=== PATIENT | male | born 1940 | race Caucasian/White ===

== ENCOUNTER → 2018-05-20 12:58 | Outpatient (CLI) | payer MEDICARE, SELFPAY ==
--- NOTE | 2018-05-20 13:32 | RAD_ITS ---
STUDY: X-RAY - ABDOMEN/PELVIS REASON FOR EXAM: Male, 77 years old. History of kidney stones. TECHNIQUE: KUB COMPARISON: None. FINDINGS: Osteopenia. Mild low lumbar scoliosis and prominent lumbar degenerative disc disease at L4-L5. Mild SI joint degeneration symmetric. Moderately severe left hip joint degeneration with joint margin osteophytic lipping, articular surface sclerosis and small subcortical cysts. Right total hip arthroplasty appears to be normally seated and articulated. No visible calculi of the left kidney silhouette. There is a punctate calcification overlying the right renal inferior pole silhouette, possibly a very small calyceal calculus. There is no apparent ureteral or urinary bladder calculus. There is a small pelvic phlebolith on the right. Bowel pattern unremarkable. Grossly normal size and position of the solid organs of the abdomen. RAD/Abdomen Single View IMPRESSION: Punctate calcification projecting over the lower pole the right kidney may represent a very tiny nonobstructing calyceal calculus. Electronically Signed: Eric Dumont MD at 18:16 EDT Tel , Service support ,
[2018-05-20 16:58] LABS: Bacteria 0 SEEN /hpf (None Seen); Mucous, Urine 0 SEEN /hpf (<or=2+); Squamous Epithelial Cells - UA 0 SEEN /hpf (0-5); White Blood Cells 0 SEEN /hpf (0-5)
[2018-05-20 17:07] LABS: Color, Urine Yellow (Yellow); Glucose, Dipstick 50 mg/dl (Normal); Ketone-Dipstick Negative (Negative); Leukocyte Esterase-Dipstick Negative /ul (Negative); Nitrite-Dipstick Negative (Negative); Occult Blood-Urine 25 /ul (Negative); Protein-Dipstick Negative (Negative); Specific Gravity, Urine 1.025 (1.002-1.030); Urine Bilirubin Dipstick Negative (Negative); Urine Clarity Clear (Clear); Urine Urobilinogen Normal (Normal)
[2018-05-20 17:21] LABS: Red Blood Cells-Urine 0-5 SEEN /hpf (0-5)
== END ==
PROVIDERS: Family Provider Family Medicine; PCP Family Medicine; Referring Provider Nurse Practitioner Adult Health; Visit Provider Nurse Practitioner Adult Health
DX: N20.0 Calculus of kidney (principal)
CPT/HCPCS: 74018; 81001

== ENCOUNTER → 2021-12-13 | Outpatient (CLI) | payer MEDICARE, SELFPAY ==
[2021-12-13 11:33] LABS: AST(SGOT) 14 U/L (15-37); Alanine Aminotransfer ALT/SGPT 15 U/L (16-61); Albumin, Serum 3.2 g/dL (3.2-5.0); Alkaline Phosphatase 76 U/L (45-117); Bilirubin, Direct 0.18 mg/dL (0.00-0.30); Cholesterol 209 mg/dL (200); Globulin 4.2 g/dL (2.2-4.2); High Density Lipoprotein 36 mg/dL; Protein, Total 7.4 g/dL (6.4-8.2); Triglycerides 142 mg/dL; Very Low Density Lipoprotein 28 mg/dL (5-40)
== END | disposition home or self-care (01) ==
LOC: LAB 10:19
PROVIDERS: PCP Family Medicine; Referring Provider Internal Medicine Cardiovascular Disease; Visit Provider Internal Medicine Cardiovascular Disease
DX: E78.00 Pure hypercholesterolemia, unspecified (principal); I50.40 Unspecified combined systolic (congestive) and diastolic (congestive) heart failure; I25.10 Atherosclerotic heart disease of native coronary artery without angina pectoris; I25.5 Ischemic cardiomyopathy; Z95.810 Presence of automatic (implantable) cardiac defibrillator; Z95.5 Presence of coronary angioplasty implant and graft; Z95.1 Presence of aortocoronary bypass graft
CPT/HCPCS: 36415; 80061; 80076

== ENCOUNTER 2022-08-07 10:46 | Inpatient (IN) | payer MEDICARE, SELFPAY ==
[2022-08-07 10:47] VITALS: BP 106/84; PULSE 76; RESP 16; TEMP 36.4; O2SAT 95; BMI 22.6
--- NOTE | 2022-08-07 10:47 | EX.ED.DYSGE1 ---
HPI History of Present Illness Chief Complaint: GI Bleed [facility] Medical History Atherosclerosis of coronary artery of [place] heart without angina pectoris CLL (chronic lymphocytic leukemia) Combined systolic and diastolic congestive heart failure, NYHA class 2 Essential hypertension GERD (gastroesophageal reflux disease) History of [place] (myocardial infarction) Hyperlipidemia Ischemic cardiomyopathy Paroxysmal atrial fibrillation Peripheral vascular occlusive disease Type 2 diabetes mellitus without complication Home Medications apixaban 5 mg tablet (Eliquis) 5 mg PO BID 08/29/21 [History Last Taken Unknown] coenzyme Q10 400 mg capsule (Co Q-10) 400 mg PO DAILY 08/29/21 [History Last Taken Unknown] cyanocobalamin (vitamin B-12) 1,000 mcg tablet 1,000 mcg PO DAILY 08/29/21 [History Last Taken Unknown] ibrutinib 140 mg capsule (Imbruvica) 140 mg PO DAILY 08/29/21 [History Last Taken Unknown] pantoprazole 40 mg tablet,delayed release 40 mg PO DAILY 08/29/21 [History Last Taken Unknown] sitagliptin phos 50 mg-metformin ER 1,000 mg tablet,extend rel 24h mp (Janumet XR) 0.5 tab PO BID 08/29/21 [History Last Taken Unknown] vitamin B complex 1 tab PO DAILY 08/29/21 [History Last Taken Unknown] clopidogrel 75 mg tablet 75 mg PO DAILY #90 tabs 12/13/21 [Rx Last Taken Unknown] sacubitril 24 mg-valsartan 26 mg tablet (Entresto) 1 tab PO BID #120 tabs 12/13/21 [Rx Last Taken Unknown] sotalol 80 mg tablet 120 mg PO BID #270 tabs 02/20/22 [Rx Last Taken Unknown] Allergy/AdvReac Type Severity Reaction Status Date / Time iodine Allergy Severe Anaphylaxis Verified 08/07/22 10:47 oxycodone Allergy Intermediate dizziness Verified 08/07/22 10:47 Food Allergies: Uncoded Allergy Mild HEADACHE Verified 08/07/22 10:47 codeine AdvReac Intermediate Low BP Verified 08/07/22 10:47 promethazine AdvReac Intermediate Low BP Verified 08/07/22 10:47 metformin [From Avandamet] AdvReac Unknown Patient Verified 08/07/22 10:47 refuses rosiglitazone AdvReac Unknown Patient Verified 08/07/22 10:47 [From Avandamet] refuses Family History Father Heart disease Mother Cancer Sister Diabetes Surgical History History of bilateral cataract extraction History of coronary artery bypass surgery (1997) History of coronary artery stent placement Presence of implantable cardioverter-defibrillator (ICD) (10/04/17) Social History Smoking Status: Never smoker alcohol intake: never substance use type: does not use EXAM Physical Exam Const Vital Signs: 08/07/22 10:47 08/07/22 12:46 08/07/22 14:00 Temperature 97.5 F L Temperature Source Oral Pulse Rate 76 63 63 Respiratory Rate 16 16 18 Blood Pressure 106/84 H 110/78 105/64 Blood Pressure Mean 91 88 77 Pulse Ox 95 100 99 Oxygen Delivery Method Room Air Room Air Room Air MDM MDM MDM Narrative Medical decision making narrative: HISTORY OF PRESENT ILLNESS: 81-year-old male here accompanied by his with concern for 24 hours of bright red blood per rectum. Patient states he feels a bit short of breath with exertion which is new for him however denies any dizziness, lightheadedness chest pain or focal weakness. He states his last dose of Eliquis was last night approximately 6 PM. States he had a recent colonoscopy on 07/26/2022. Patient and deny pallor REVIEW OF SYSTEMS: Pertinent positives: GI bleeding, shortness of breath Pertinent negatives: Fatigue, lightheadedness or dizziness PHYSICAL EXAM: Nursing triage notes reviewed, Vital signs reviewed Constitutional: please see mdm HENT: MMM, mucosal pallor, conjunctival pallor Eyes: Pupils equal round and reactive to light, Extraocular muscles intact Neck: No stridor, no JVD, full neck ROM Lungs: Clear to auscultation, No wheezing or rales. No increased work of breathing, no conversational dyspnea, no accessory muscle use, no nasal flaring. No respiratory distress noted Heart: Regular rate and rhythm, No murmurs, No rubs and No gallops, 2+ distal pulses (radial, femoral, posterior tibial) in all extremities Abdomen: Soft, there is no tenderness, rigidity, rebound or guarding, no obvious peritoneal signs, no palpable pulsatile abdominal masses, no auscultated abdominal bruit : No CVAT Rectal: Obvious bleeding and rectal vault,, no obvious external hemorrhoids, fissures occult sample sent Extremities: No edema Neuro: No focal neurological deficits, cranial nerves II through XII intact, 5/5 strength in all extremities. Intact sensation to light touch in all extremities, 2+ reflexes bilateral patella tendons. Normal gait. No ataxia. Skin: Skin pallor noted MEDICAL DECISION MAKING: Chief Complaint: GI bleed on Eliquis External records reviewed: Ejection fraction is 30 to 35%. Noted colonoscopy by Dr. Mccann on 07/26/2022: Impression: - One small polyp in the descending colon, removed with a hot snare. Resected and retrieved. Clip was placed. 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 - Non-bleeding internal hemorrhoids. - Diverticulosis in the sigmoid colon. - The examination was otherwise normal. Recommendation: - Patient has a contact number available for emergencies. The signs and symptoms of potential delayed complications were discussed with the patient. Return to normal activities tomorrow. Written discharge instructions were provided to the patient. - Resume previous diet. - Continue present medications. - Await pathology results. - Repeat colonoscopy date to be determined after pending pathology results are reviewed for surveillance. - Return to physician retail assistant in 1 week. - Resume Eliquis (apixaban) tomorrow at prior dose. Procedure Code(s): --- Professional --- 08890, Colonoscopy, flexible; with removal of tumor(s), polyp(s), or other lesion(s) by snare technique Diagnosis Code(s): --- Professional --- D12.4, Benign neoplasm of descending colon K64.8, Other hemorrhoids D50.9, Iron deficiency anemia, unspecified K57.30, Diverticulosis of large intestine without perforation or abscess without bleeding Factors affecting care: On Eliquis secondary to atrial fibrillation, CAD status post CABG in 1997 with JACOBSON to LAD, ischemic cardiomyopathy, status post ICD, CLL Social determinants of health: None History obtained from others: The patient's Consults: General surgery, Gastroenterology, Oncology, Internal Medicine ALL IMAGES HAVE BEEN PERSONALLY REVIEWED AND INTERPRETED BY MYSELF. MDM Narrative: The patient had soft blood pressures otherwise hemodynamically stable and nontoxic-appearing pale on exam I considered the following differential diagnosis: significant anemia, myocardial schema, GI bleed on Eliquis Rectal exam with obvious bright red blood per rectum. No obvious hemorrhoids or fissures. Patient's blood counts had downtrended by 2.9 g/dL. Given his advanced age, history of CAD status post CABG and ischemic cardiomyopathy this was very concerning in the setting of Eliquis. He did not require reversal as he had no evidence of life-threatening bleeding he was hemodynamically stable and no evidence of active bleeding here in the emergency department. The patient will require inpatient admission for observation, repeat CBC and GI urgent consultation. His recent colonoscopy was performed by Dr. Mccann. I reached out to Dr. Mccann's colleague Dr. Pang who is on-call. She stated Dr. Mccann does not see patients at [facility]. I had a discussion with the patient and his who stated they do not want to be transferred at this time and would prefer to stay here at [facility] even if it meant seeing a different cigarette paper tester. I reached out to Dr. Du (gastroenterology) he stated . I also reached out to Dr. Lloyd (oncologist) at patient request. Dr. Lloyd recommended holding ibrutinib as it can perpetuate bleeding. I also spoke to the hospitalist Dr. Muse who agreed to admit the patient to the PCU. Total critical care time today provided was at least 0 minutes. This excludes separately billable procedures. There was a high probability of clinically significant/life threatening deterioration in the patient's condition which required my urgent intervention. Shared decision making: I will have a discussion with the patient and or visitors regarding risk/benefits of further testing or admission. They will be made aware of of the risk/benefits inherent in this decision they will be given the opportunity to voice understanding. Lab Data Attestation: I reviewed the patient's lab results. Lab results narrative: EKG with atrial paced rhythm, normal axis, prolonged QT, no ischemic changes CBC with no leukocytosis, moderate to severe anemia with a hemoglobin of 9.0 (baseline hemoglobin 11.9), noted thrombocytopenia INR without evidence of severe coagulopathy BMP without evidence of significant electrolyte abnormalities, no anion gap, no acute kidney injury. Blood type A- Labs: Laboratory Results - last 24 hr 08/07/22 08/07/22 08/07/22 10:55 10:55 10:55 WBC RBC Hgb Hct MCV MCH MCHC RDW Std Deviation RDW Coeff of [place] Plt Count MPV Immature Gran % (Auto) Neut % (Auto) Lymph % (Auto) [place] % (Auto) Eos % (Auto) Baso % (Auto) Absolute Neuts (auto) Absolute Lymphs (auto) Nucleated RBC % PT 17.0 H INR 1.4 APTT 30.0 Sodium 142 Potassium 4.2 Chloride 109 H Carbon Dioxide 24.0 Anion Gap 9 BUN 23 H Creatinine 1.29 Estim Creat Clear Calc 46.40 Est GFR (MDRD) Af Amer 68 Est GFR (MDRD) Non-Af 56 L BUN/Creatinine Ratio 17.8 Glucose 179 H Calcium 7.7 L Total Bilirubin 0.70 AST 11 L ALT 9 L Alkaline Phosphatase 58 Troponin I High Sens 7 Total Protein 5.8 L Albumin 2.6 L Globulin 3.2 Albumin/Globulin Ratio 0.8 L Lipase 18 Blood Type A NEGATIVE Antibody Screen NEGATIVE 08/07/22 10:55 WBC 10.3 RBC 3.18 L Hgb 9.0 L Hct 27.4 L MCV 86.2 MCH 28.3 MCHC 32.8 RDW Std Deviation 42.3 RDW Coeff of [place] 13.4 Plt Count 118 L MPV 12.7 H Immature Gran % (Auto) 0.200 Neut % (Auto) 70.4 H Lymph % (Auto) 23.3 [place] % (Auto) 5.7 Eos % (Auto) 0.3 Baso % (Auto) 0.1 Absolute Neuts (auto) 7.2 Absolute Lymphs (auto) 2.39 Nucleated RBC % 0 PT INR APTT Sodium Potassium Chloride Carbon Dioxide Anion Gap BUN Creatinine Estim Creat Clear Calc Est GFR (MDRD) Af Amer Est GFR (MDRD) Non-Af BUN/Creatinine Ratio Glucose Calcium Total Bilirubin AST ALT Alkaline Phosphatase Troponin I High Sens Total Protein Albumin Globulin Albumin/Globulin Ratio Lipase Blood Type Antibody Screen Discharge Plan Triage Chief Complaint: GI Bleed ED Provider: Arma Stoll Dx/Rx/DC Orders Prescriptions: No Action pantoprazole 40 mg tablet,delayed release (DR/EC) 40 mg PO DAILY Imbruvica 140 mg capsule 140 mg PO DAILY Eliquis 5 mg tablet 5 mg PO BID cyanocobalamin (vitamin B-12) 1,000 mcg tablet 1,000 mcg PO DAILY vitamin B complex Tablet 1 tab PO DAILY Janumet XR 50-1,000 mg tablet, ER multiphase 24 hr 0.5 tab PO BID coenzyme Q10 [Co Q-10] 400 mg capsule 400 mg PO DAILY clopidogrel 75 mg tablet 75 mg PO DAILY Qty: 90 3RF Entresto 24-26 mg tablet 1 tab PO BID Qty: 120 3RF sotalol 80 mg tablet 120 mg PO BID Qty: 270 3RF Primary Care Provider: Zachary Christian Referrals: Zachary Christian MD [Primary Care Provider] -
[2022-08-07 11:05] LABS: Absolute Lymphocyte Count 2.39 X10^3/uL (0.83-4.51); Absolute Neutrophil Count 7.2 X10^3/uL (2.0-7.7); Basophil# 0.01 X10^3/uL; Basophil% 0.1 % (0-1); Eosinophil# 0.03 X10^3/uL; Eosinophils% 0.3 % (0-5); Hematocrit 27.4 % (40-54); Lymphocyte # 2.39 X10^3/ul (0.83-4.51); Lymphocyte % 23.3 % (19-41); Mean Corp Hgb Conc 32.8 g/dL (32-36); Mean Corpuscular Hgb 28.3 pg (27.0-32.0); Mean Corpuscular Volume 86.2 fL (80-94); Mean Platelet Vol. 12.7 fl (6.2-12.0); Monocyte# 0.58 X10^3/uL; Monocyte% 5.7 % (0-10); NRBC Flagged by Analyzer 0 % (0-5); Neutrophil # 7.22 X10^3/uL (2.7-7.7); Neutrophil % 70.4 % (47-70); Platelet Count 118 K/mm3 (150-450); RBC Distribution Width CV 13.4 % (11.6-14.6); RBC Distribution Width SD 42.3 fl (35.1-43.9); Red Blood Count 3.18 M/mm3 (4.6-6.2); White Blood Count 10.3 K/mm3 (4.4-11.0)
[2022-08-07 11:14] LABS: International Normalized Ratio 1.4
[2022-08-07 11:26] LABS: ALB/GLOB Ratio 0.8 RATIO (0.9-2.4); AST(SGOT) 11 U/L (15-37); Alanine Aminotransfer ALT/SGPT 9 U/L (16-61); Albumin, Serum 2.6 g/dL (3.2-5.0); Alkaline Phosphatase 58 U/L (45-117); Anion Gap 9 (5-15); BUN 23 mg/dL (7-18); BUN/Creat Ratio 17.8 RATIO (10-20); Calcium,Total 7.7 mg/dL (8.5-10.1); Chloride 109 mmol/L (98-107); Creatinine, Serum 1.29 mg/dL (0.70-1.30); EST Glomerular Filtration Rate 56 mL/min (>60); Est Glom Filt Rate - Afr Amer 68 mL/min (>60); Globulin 3.2 g/dL (2.2-4.2); Glucose 179 mg/dL (74-106); Lipase 18 U/L (13-75); Potassium 4.2 mmol/L (3.5-5.1); Protein, Total 5.8 g/dL (6.4-8.2); Sodium Level 142 mmol/L (136-145); Troponin-I HS 7 pg/mL (3.0-78.0)
[2022-08-07 12:46] VITALS: BP 110/78; PULSE 63; RESP 16; O2SAT 100
--- NOTE | 2022-08-07 13:54 | HP.PCM.HOS_ITS ---
[facility] - General General Date of Service: 08/07/22 Chief Complaint: BRBPR HPI Narrative CHARLY CONTRERAS, is a 81 M who presents lower GI bleed since Sunday. Has been occurring roughly every few hours since then. Back on the , patient underwent polypectomy on colonoscopy by Dr. Mccann. Had no issues after that procedure. Patient's last bloody bowel movement was prior to his presentation here. Patient was experiencing some shortness of breath which led to him to present here. Patient had hemoglobin of 9. No current active bleeding. Patient has never had a GI bleed before. Patient was sent to Dr. Mccann for evaluation for anemia which no clear etiology is identified at that time. [facility] Medical History Atherosclerosis of coronary artery of [place] heart without angina pectoris CLL (chronic lymphocytic leukemia) Combined systolic and diastolic congestive heart failure, NYHA class 2 Essential hypertension GERD (gastroesophageal reflux disease) History of [place] (myocardial infarction) Hyperlipidemia Ischemic cardiomyopathy Paroxysmal atrial fibrillation Peripheral vascular occlusive disease Type 2 diabetes mellitus without complication Home Medications apixaban 5 mg tablet (Eliquis) 5 mg PO BID 08/29/21 [History Last Taken Unknown] coenzyme Q10 400 mg capsule (Co Q-10) 400 mg PO DAILY 08/29/21 [History Last Taken Unknown] cyanocobalamin (vitamin B-12) 1,000 mcg tablet 1,000 mcg PO DAILY 08/29/21 [History Last Taken Unknown] ibrutinib 140 mg capsule (Imbruvica) 140 mg PO DAILY 08/29/21 [History Last Taken Unknown] pantoprazole 40 mg tablet,delayed release 40 mg PO DAILY 08/29/21 [History Last Taken Unknown] sitagliptin phos 50 mg-metformin ER 1,000 mg tablet,extend rel 24h mp (Janumet XR) 0.5 tab PO BID 08/29/21 [History Last Taken Unknown] vitamin B complex 1 tab PO DAILY 08/29/21 [History Last Taken Unknown] clopidogrel 75 mg tablet 75 mg PO DAILY #90 tabs 12/13/21 [Rx Last Taken Unknown] sacubitril 24 mg-valsartan 26 mg tablet (Entresto) 1 tab PO BID #120 tabs 12/13/21 [Rx Last Taken Unknown] sotalol 80 mg tablet 120 mg PO BID #270 tabs 02/20/22 [Rx Last Taken Unknown] Allergy/AdvReac Type Severity Reaction Status Date / Time iodine Allergy Severe Anaphylaxis Verified 08/07/22 10:47 oxycodone Allergy Intermediate dizziness Verified 08/07/22 10:47 Food Allergies: Uncoded Allergy Mild HEADACHE Verified 08/07/22 10:47 codeine AdvReac Intermediate Low BP Verified 08/07/22 10:47 promethazine AdvReac Intermediate Low BP Verified 08/07/22 10:47 metformin [From Avandamet] AdvReac Unknown Patient Verified 08/07/22 10:47 refuses rosiglitazone AdvReac Unknown Patient Verified 08/07/22 10:47 [From Avandamet] refuses Family History Father Heart disease Mother Cancer Sister Diabetes Surgical History History of bilateral cataract extraction History of coronary artery bypass surgery (1997) History of coronary artery stent placement Presence of implantable cardioverter-defibrillator (ICD) (10/04/17) Social History Smoking Status: Never smoker alcohol intake: never substance use type: does not use ROS ROS Narrative Easy bruising. All review of systems were negative except as mentioned above in the history of present illness and the other review of systems. Vital Signs Vital Signs Vital Signs: 08/07/22 10:47 08/07/22 12:46 Temperature 36.4 C L Temperature Source Oral Pulse Rate 76 63 Respiratory Rate 16 16 Blood Pressure 106/84 H 110/78 Blood Pressure Mean 91 88 Pulse Ox 95 100 Oxygen Delivery Method Room Air Room Air Weight Weight: 75.6 kg Body Mass Index (BMI) 22.6 Physical Exam Const alert and no apparent distress HEENT normocephalic, head/scalp atraumatic and hearing grossly normal bilaterally Eyes Eyes Narrative: No icterus Neck no lymphadenopathy Resp normal respiratory effort, no retractions, no use of accessory muscles and clear to auscultation bilaterally Cardio regular rate, regular rhythm, S1 normal heart sound and S2 normal heart sound GI normal to inspection, nondistended, normoactive bowel sounds, soft to palpation, non-tender and non-distended GI Narrative: Rectal exam shows no active bleeding nor any external hemorrhoids. Extremity normal to inspection and no clubbing, cyanosis or edema Neuro moves all extremities and no focal motor deficits Sensorium / Orientation: awake and alert Psych affect normal Results Lab / Micro Data Attestation: I reviewed the patient's lab results. Result Diagrams: 08/07/22 10:55 08/07/22 10:55 Labs: Laboratory Results - last 24 hr 08/07/22 10:55: PT 17.0 H, INR 1.4, APTT 30.0 08/07/22 10:55: Sodium 142, Potassium 4.2, Chloride 109 H, Carbon Dioxide 24.0, Anion Gap 9, BUN 23 H, Creatinine 1.29, Estim Creat Clear Calc 46.40, Est GFR (MDRD) Af Amer 68, Est GFR (MDRD) Non-Af 56 L, BUN/Creatinine Ratio 17.8, Glucose 179 H, Calcium 7.7 L, Total Bilirubin 0.70, AST 11 L, ALT 9 L, Alkaline Phosphatase 58, Troponin I High Sens 7, Total Protein 5.8 L, Albumin 2.6 L, Globulin 3.2, Albumin/Globulin Ratio 0.8 L, Lipase 18 08/07/22 10:55: Blood Type A NEGATIVE, Antibody Screen NEGATIVE 08/07/22 10:55: WBC 10.3, RBC 3.18 L, Hgb 9.0 L, Hct 27.4 L, MCV 86.2, MCH 28.3, MCHC 32.8, RDW Std Deviation 42.3, RDW Coeff of [place] 13.4, Plt Count 118 L, MPV 1 2.7 H, Immature Gran % (Auto) 0.200, Neut % (Auto) 70.4 H, Lymph % (Auto) 23.3, [place] % (Auto) 5.7, Eos % (Auto) 0.3, Baso % (Auto) 0.1, Absolute Neuts (auto) 7.2, Absolute Lymphs (auto) 2.39, Nucleated RBC % 0 Micro: Microbiology 08/07/22 10:51 Stool Stool Occult Blood (HAJA) - Final Occult Blood Positive EKG Initial EKG: Attestation: I personally reviewed and interpreted this EKG as follows: EKG Rhythm Intrepretation: Atrial Paced Assessment & Plan Assessment/Plan (1) GI bleed: PLAN: Currently stable If patient does rebleed, then patient may need a CT angiogram Dr. Du has been notified by the emergency room and as well as myself. Clear liquid diet Start pantoprazole IV. Hold apixaban and clopidogrel (2) Anemia: PLAN: Hemoglobin currently 9. Does not require transfusion We will recheck in 6 hours and if dropping may need to recheck that in short order or if it stable then just recheck in the morning labs. Type and screen (3) Type 2 diabetes mellitus without complication: PLAN: Hold Sitagliptin/metformin Sliding scale insulin PLAN: Plan Chronic conditions * A-fib: Status post pacemaker. Currently atrial paced. Continue with sotalol. Hold apixaban given the GI bleed * CLL: ED spoke with Dr. Lloyd, of oncology, who recommended holding his ibrutinib * CAD: Status post CABG and stents. Last stent was sometime ago but well over a year ago. Hold the clopidogrel. VTE prophylaxis: Chemical prophylaxis contraindicated. SCDs. CODE STATUS: Addressed with the patient. Patient wishes to be full CODE STATUS Charges/Coding Visit Charges Inpatient E&M: 65754 Init Hosp L3
[2022-08-07 14:00] VITALS: BP 105/64; PULSE 63; RESP 18; O2SAT 99
[2022-08-07 14:39] VITALS: BP 96/62; PULSE 64; RESP 12; TEMP 36.6; O2SAT 99
[2022-08-07 15:38] VITALS: BP 124/58; PULSE 65; RESP 16; TEMP 36.4; O2SAT 100
[2022-08-07 15:41] VITALS: BMI 22.2
[2022-08-07] MEDS: 0.9% Normal Saline 1,000 ML 150 ML IV (16:27)
[2022-08-07 17:36] LABS: Hematocrit 24.9 % (40-54); Hemoglobin 8.2 g/dL (13.0-16.5)
[2022-08-07 17:57] LABS: Bedside Glucose 166 mg/dL (74-106)
[2022-08-07 22:47] VITALS: BP 108/43; PULSE 67; RESP 16; TEMP 36.6; O2SAT 100
[2022-08-07 22:54] LABS: Hematocrit 19.7 % (40-54); Hemoglobin 6.6 g/dL (13.0-16.5)
[2022-08-07 23:51] LABS: Bedside Glucose 135 mg/dL (74-106)
[2022-08-08] VITALS (11 sets, daily range): BP systolic 90–134; BP diastolic 45–75; PULSE 51–70; RESP 15–18; TEMP 35.7–37.1; O2SAT 98–100
[2022-08-08 04:51] LABS: Absolute Lymphocyte Count 2.56 X10^3/uL (0.83-4.51); Absolute Neutrophil Count 4.8 X10^3/uL (2.0-7.7); Basophil# 0.02 X10^3/uL; Basophil% 0.2 % (0-1); Eosinophil# 0.08 X10^3/uL; Hematocrit 23.4 % (40-54); Hemoglobin 7.5 g/dL (13.0-16.5); Lymphocyte # 2.56 X10^3/ul (0.83-4.51); Lymphocyte % 31.6 % (19-41); Mean Corp Hgb Conc 32.1 g/dL (32-36); Mean Corpuscular Hgb 28.5 pg (27.0-32.0); Mean Platelet Vol. 12.9 fl (6.2-12.0); Monocyte# 0.61 X10^3/uL; Monocyte% 7.5 % (0-10); NRBC Flagged by Analyzer 0 % (0-5); Neutrophil % 59.5 % (47-70); POSITIVE COUNT YES; Platelet Count 81 K/mm3 (150-450); RBC Distribution Width CV 13.3 % (11.6-14.6); RBC Distribution Width SD 42.8 fl (35.1-43.9); Red Blood Count 2.63 M/mm3 (4.6-6.2); White Blood Count 8.1 K/mm3 (4.4-11.0)
[2022-08-08 04:54] LABS: Differential Indicated SCAN CRITERIA MET
[2022-08-08 05:34] LABS: Anion Gap 6 (5-15); BUN 22 mg/dL (7-18); BUN/Creat Ratio 20.8 RATIO (10-20); Calcium,Total 6.9 mg/dL (8.5-10.1); Chloride 114 mmol/L (98-107); Creatinine, Serum 1.06 mg/dL (0.70-1.30); EST Glomerular Filtration Rate 71 mL/min (>60); Est Glom Filt Rate - Afr Amer 86 mL/min (>60); Estimated Creatinine Clearance 55.57 ml/min; Glucose 128 mg/dL (74-106); Potassium 3.7 mmol/L (3.5-5.1); Sodium Level 143 mmol/L (136-145)
[2022-08-08 05:57] LABS: Platelet Estimate MOD DEC (ADEQ)
--- NOTE | 2022-08-08 06:38 | PN.HOSP_ITS ---
Reason for Visit Reason for Visit: Diagnoses Anemia, unspecified (08/07/22) Type 2 diabetes mellitus without complications (08/07/22) Gastrointestinal hemorrhage, unspecified (08/07/22) Subjective Subjective Patient overnight with no recurrent lightheadedness or dizziness but he was not allowed to get up per staff secondary to repeat H&H trending with noted Hgb 6.6- > administered overnight 1 u PRBC with repeat Hgb this AM 7.5. Patient with no recurrent bloody bowel movements overnight. Discussed patient's status with gastroenterology this morning and initiated on bowel prep with planned future endoscopy. Patient denies any associated abdominal cramping or pain. Patient denies fevers, chills, nausea, emesis, chest pain or dyspnea. Objective Data Objective Data Vital Signs: Vital Signs Temp Pulse Resp BP Pulse Ox O2 Del Method 98.5 F 62 18 119/58 L 100 Room Air 08/08/22 06:12 08/08/22 06:12 08/08/22 06:12 08/08/22 06:12 08/08/22 06:12 08/08/22 06:12 Oxygen Delivery Method Room Air Weight: 164 lb 0.383 oz Body Mass Index (BMI) 22.2 Intake & Output: Intake and Output for Last 24 Hours 08/06/22 08/07/22 08/08/22 23:59 23:59 23:59 Intake Total 1590.0 / 1590.0 432.5 / 432.5 Output Total 150 / 150 Balance 1590.0 / 1590.0 282.5 / 282.5 Lab / Micro Data Result Diagrams: 08/08/22 14:10 08/08/22 04:30 Labs: Laboratory Results - last 24 hr 08/07/22 10:55: PT 17.0 H, INR 1.4, APTT 30.0 08/07/22 10:55: Sodium 142, Potassium 4.2, Chloride 109 H, Carbon Dioxide 24.0, Anion Gap 9, BUN 23 H, Creatinine 1.29, Estim Creat Clear Calc 46.40, Est GFR (MDRD) Af Amer 68, Est GFR (MDRD) Non-Af 56 L, BUN/Creatinine Ratio 17.8, Glucose 179 H, Calcium 7.7 L, Total Bilirubin 0.70, AST 11 L, ALT 9 L, Alkaline Phosphatase 58, Troponin I High Sens 7, Total Protein 5.8 L, Albumin 2.6 L, Globulin 3.2, Albumin/Globulin Ratio 0.8 L, Lipase 18 08/07/22 10:55: Blood Type A NEGATIVE, Antibody Screen NEGATIVE 08/07/22 10:55: WBC 10.3, RBC 3.18 L, Hgb 9.0 L, Hct 27.4 L, MCV 86.2, MCH 28.3, MCHC 32.8, RDW Std Deviation 42.3, RDW Coeff of [place] 13.4, Plt Count 118 L, MPV 12.7 H, Immature Gran % (Auto) 0.200, Neut % (Auto) 70.4 H, Lymph % (Auto) 23.3, [place] % (Auto) 5.7, Eos % (Auto) 0.3, Baso % (Auto) 0.1, Absolute Neuts (auto) 7.2, Absolute Lymphs (auto) 2.39, Nucleated RBC % 0 08/07/22 10:55: Crossmatch See Detail 08/07/22 16:30: POC Glucose 166 H 08/07/22 17:25: Hgb 8.2 L, Hct 24.9 L 08/07/22 22:40: Hgb 6.6 L, Hct 19.7 L 08/07/22 22:42: POC Glucose 135 H 08/08/22 04:30: WBC 8.1, RBC 2.63 L, Hgb 7.5 L, Hct 23.4 L, MCV 89.0, MCH 28.5, MCHC 32.1, RDW Std Deviation 42.8, RDW Coeff of [place] 13.3, Plt Count 81 L, MPV 12.9 H, Immature Gran % (Auto) 0.200, Neut % (Auto) 59.5, Lymph % (Auto) 31.6, [place] % (Auto) 7.5, Eos % (Auto) 1.0, Baso % (Auto) 0.2, Absolute Neuts (auto) 4.8, Absolute Lymphs (auto) 2.56, Nucleated RBC % 0, Platelet Estimate MOD 08/08/22 04:30: Sodium 143, Potassium 3.7, Chloride 114 H, Carbon Dioxide 23.0, Anion Gap 6, BUN 22 H, Creatinine 1.06, Estim Creat Clear Calc 55.57, Est GFR (MDRD) Af Amer 86, Est GFR (MDRD) Non-Af 71, BUN/Creatinine Ratio 20.8 H, Glucos e 128 H, Calcium 6.9 L Micro: Microbiology 08/07/22 10:51 Stool Stool Occult Blood (HAJA) - Final Occult Blood Positive Physical Exam Narrative Physical Examination: General: Awake, alert, oriented x 3 and cooperative, laying in the PCU bed, mildly fatigued otherwise no acute distress Skin: Pale color, normal turgor, no icterus, no cyanosis. HEENT: AT/NC, EOMI, PERRLA, mildly dry MM. Lungs: CTA bilaterally, moderate effort, mild decrease BL bases, no rales, ronchi or wheezing. Heart: Regular rate and rhythm; no gallop, rub audible. Abdomen: Soft, NTTP, ND, hyperactive BS Extremities: No cyanosis, clubbing, or edema. Neurological: Patient awake, alert, oriented as noted, cognitive function intact; pupils equally reactive to light and accommodation, cranial nerves II- XII grossly normal, moving all 4 extremities, no focal deficits, strength moderately globally decreased secondary to acute presentation. Psychiatric: Affect appears fatigued otherwise normal, no acute evidence of dep ressive or anxiety feelings. Assessment & Plan Assessment/Plan (1) GI bleed: PLAN: Plan The patient is an 81 y/o M w/ PMHx: CAD s/p PCI and CABG, Ischemic cardiomyopathy, Combined Systolic/Diastolic CHF s/p AICD placement, HTN, HLD, PAF, PVOD, Diabetes mellitus type II, GERD, Chronic normocytic anemia, CLL who presents to the [facility] ED on 08/07/22 with history of onset of bright red blood per rectum starting Sunday with reported endoscopy recently with polypectomy by Dr. Mccann with no immediate issues after the procedure until onset of bleeding as noted with increasing fatigue, dyspnea prompting ED evaluation. #1. Acute GI Bleed w/ resultant Acute Blood Loss Anemia on Chronic anemia: Wor k-up in the ED included T97.5, heart rate 65, BP 124/58, respiratory rate 16, her percent on room air, CBC with WC 10.3, hemoglobin 9.0 initially with repeat trending 8.2, platelet 118 without marked shift, unremarkable coags aside PT 17, CMP with chloride 109, BUN/creatinine 23/1.29, glucose 179, unremarkable hepatic profile, positive occult stool, type and screen initiated per ED physician. Admi ssion hemoglobin 9.0 with repeat upon admission 8.2, admitted to PCU, maintain on monitor, patient chronic anticoagulation apixaban as well as Plavix held, judiciously hydrated given underlying heart failure history, cycle H&H's, type and screen initiated per ED physician, maintain on IV PPI, clears initially with n.p.o. status at midnight pending GI evaluation. Repeat Hgb 08/08/22 AM 6.6, administered 1 u PRBC and repeat HH following Hgb 7.5, planned likely prep today per discussion with GI and endoscopy 08/09/22. #2. PAF: We will continue patient home sotalol regimen, both apixaban and Plavi x currently held given acute presentation as noted. #3. CAD: Status post PCI and CABG, temporarily holding Plavix, apixaban, continue sotalol, Entresto home regimen. #4. Combined systolic and diastolic CHF/ischemic cardiomyopathy: Status post prior AICD placement, temporarily holding patient home Plavix and apixaban regimen given acute presentation, we will continue patient home sotalol as well as Entresto regimen, judiciously hydrating with low threshold to diurese if necessary. #5. CLL: Patient on chronic ibrutinib daily regimen, temporarily held. #6. Hypertension: Continue home regimen including Entresto, PRN hydralazine. #7. Hyperlipidemia: Not on statin therapy, defer to outpatient. #8. Diabetes mellitus type II: Noted in chart history, not on marked regimen, currently n.p.o. status, hemoglobin A1c requested and noted to be 5.9% consistent with prediabetes, will continue Accu-Chek with insulin sliding scale initiated upon presentation. #9. GERD: As noted maintained on IV PPI given #1. #10. DVT prophylaxis: Holding patient chronic anticoagulant given presentation #1. #11. CODE STATUS: Full code. Admission Evaluation Time spent evaluating chart, patient history, patient evaluation, care planning and discussion with specialists: 50 minutes. Charges/Coding Visit Charges Inpatient E&M: 47596 [facility] Hosp L3
[2022-08-08 06:40] LABS: Bedside Glucose 114 mg/dL (74-106)
[2022-08-08 08:10] LABS: Hemoglobin A1c 5.9 % (3.8-5.6)
[2022-08-08] MEDS: 0.9% Saline Lock 10 ML Syringe IV ×2 (08:11→22:50)
[2022-08-08] MEDS: Sotalol Hydrochloride 80 MG Tablet 120 MG PO ×2 (08:11→22:45)
[2022-08-08] MEDS: Ensure Clear 120 ML Liquid PO ×2 (08:11→13:23)
[2022-08-08 10:01] LABS: Hematocrit 22.5 % (40-54); Hemoglobin 7.4 g/dL (13.0-16.5)
--- NOTE | 2022-08-08 12:15 | CASEMGMT ---
RN?CM?PLANT MAINTENANCE WORKER?CM?to room to meet with patient for initial transition planning/care coordination?assessment.?RN?CM?introduced self and role at [facility].? Pt voices understanding and consents to?assessment?at this time.? Pt resting in bed in no distress at this time.? @ bedside. Pt is A/O at this time and answers all questions appropriately.?? Care providers, pharmacy, and demographics verified/updated at this time. PCP: Dr Christian and Dr Peraza @ [facility]. Specialists: Dr Lloyd-oncology, Dr Pennington-[facility] vascular Preferred Pharmacy: [facility] Insurance:[employer] Prescription Benefit:?Yes Living Will/HPOA:?Pt does not currently have LW/HCPOA and declines info at this time.? Pt made aware that he can contact as an out-pt and make appt in the future if he decides he would like to talk with someone about this or would like to utilize [facility] social work for advanced directive completion.??? LNOK: , Marisol. One daughter-Lazara Living Arrangements: Lives w/ in one-story home w/basement and 2 steps to enter. States does okay with the stairs. Indep w/ADL's. and pt share home mgnt tasks. Transportation:?Pt states drives self and states no transportation concerns at this time.? also drives. DME: ?States has the following DME:?functioning glucometer w/supplies. Pt has a walker available but does not use. ? Pt states no need for further DME at this time.? HHC/SNF: No hx of either. Denies need for HHC or OP therapy. Pt and made aware, if pt changes his mind later, to discuss options w/his PCP. Pt wishes to return home and states has no concerns with going home at time of discharge.?CM?to follow for any discharge planning/needs.? Pt and voice no concerns/needs at this time.? Advised pt to ask for?CM?if any questions/concerns/needs arise.? They voice understanding. PLAN:??Home w/spousal support and discharge plans in place. PT/OT evals pending. Erick BSN?RN?CM
[2022-08-08] MEDS: Bisacodyl 5 MG Tablet 20 MG PO (13:21)
[2022-08-08 14:25] LABS: Hemoglobin 7.9 g/dL (13.0-16.5)
[2022-08-08] MEDS: Polyethylene Glycol 3350 BOWEL PREP PO (16:03)
[2022-08-08] MEDS: Insulin Lispro 100 UNIT/ML INSULN.PEN SC (16:15)
[2022-08-08 16:39] LABS: Bedside Glucose 239 mg/dL (74-106)
--- NOTE | 2022-08-08 16:52 | EX.PCM.CON.G ---
HPI Consult Data Date of Consult: 08/08/22 HPI Narrative Reason for Consultation: GI bleed HPI Narrative: CHARLY CONTRERAS, is a 81 M who presents from home with bright red blood per rectum after undergoing colonoscopy. He has a history of hypertension, hyperlipidemia, paroxysmal atrial fibrillation, coronary artery disease status post coronary artery bypass surgery in 1997 with a JACOBSON to the LAD.?Patient states he feels a bit short of breath with exertion which is new for him however denies any dizziness, lightheadedness chest pain or focal weakness.? He states his last dose of Eliquis was last night approximately 6 PM.? States he had a recent colonoscopy on 07/26/2022.? Patient and deny pallor. ?Patient had hemoglobin of 9.? No current active bleeding.? Patient has never had a GI bleed before.? Patient was sent to Dr. Mccann for evaluation for anemia which no clear etiology is identified at that time. His hemoglobin is decreased down to 6.6 and he is received a unit of packed red blood cells.. His hemoglobin has been improving and it is up to 8.7. He still remains off of clopidogrel and apixaban. [facility] Medical History (Updated 08/08/22 @ 06:22 by Glenys Soto) Atherosclerosis of coronary artery of [place] heart without angina pectoris Bleeding tendency Blood disorder CLL (chronic lymphocytic leukemia) Combined systolic and diastolic congestive heart failure, NYHA class 2 Diabetes Essential hypertension GERD (gastroesophageal reflux disease) Heart attack High cholesterol History of ME (myocardial infarction) History of stress test Hyperlipidemia Ischemic cardiomyopathy Pacemaker Paroxysmal atrial fibrillation Peripheral vascular occlusive disease Type 2 diabetes mellitus without complication Home Medications apixaban 5 mg tablet (Eliquis) 5 mg PO BID 08/29/21 [History Last Taken Unknown] coenzyme Q10 400 mg capsule (Co Q-10) 400 mg PO DAILY 08/29/21 [History Last Taken Unknown] cyanocobalamin (vitamin B-12) 1,000 mcg tablet 1,000 mcg PO DAILY 08/29/21 [History Last Taken Unknown] ibrutinib 140 mg capsule (Imbruvica) 140 mg PO DAILY 08/29/21 [History Last Taken Unknown] pantoprazole 40 mg tablet,delayed release 40 mg PO DAILY 08/29/21 [History Last Taken Unknown] sitagliptin phos 50 mg-metformin ER 1,000 mg tablet,extend rel 24h mp (Janumet XR) 0.5 tab PO BID 08/29/21 [History Last Taken Unknown] vitamin B complex 1 tab PO DAILY 08/29/21 [History Last Taken Unknown] clopidogrel 75 mg tablet 75 mg PO DAILY #90 tabs 12/13/21 [Rx Last Taken Unknown] sacubitril 24 mg-valsartan 26 mg tablet (Entresto) 1 tab PO BID #120 tabs 12/13/21 [Rx Last Taken Unknown] sotalol 80 mg tablet 120 mg PO BID #270 tabs 02/20/22 [Rx Last Taken Unknown] ferrous sulfate 1 tab supplement 08/07/22 [History Last Taken 08/05/22] Allergy/AdvReac Type Severity Reaction Status Date / Time iodine Allergy Severe Anaphylaxis Verified 08/07/22 10:47 oxycodone Allergy Intermediate dizziness Verified 08/07/22 10:47 Food Allergies: Uncoded Allergy Mild HEADACHE Verified 08/07/22 10:47 codeine AdvReac Intermediate Low BP Verified 08/07/22 10:47 promethazine AdvReac Intermediate Low BP Verified 08/07/22 10:47 metformin [From Avandamet] AdvReac Unknown Patient Verified 08/07/22 10:47 refuses rosiglitazone AdvReac Unknown Patient Verified 08/07/22 10:47 [From Avandamet] refuses Family History Father Heart disease Mother Cancer Sister Diabetes Surgical History (Updated 08/08/22 @ 06:22 by Glenys Soto) H/O cardiac catheterization History of bilateral cataract extraction History of coronary artery bypass surgery (1997) History of coronary artery stent placement History of heart artery stent History of hip replacement Presence of implantable cardioverter-defibrillator (ICD) (10/04/17) S/P internal cardiac defibrillator procedure Status post cardiac surgery Social History Smoking Status: Never smoker alcohol intake: never substance use type: does not use ROS ROS Narrative Easy bruising. All review of systems were negative except as mentioned above in the history of present illness and the other review of systems. Lab / Micro Data Result Diagrams: 08/08/22 14:10 08/08/22 04:30 Labs: Laboratory Results - last 24 hr 08/07/22 10:55: Crossmatch See Detail 08/07/22 16:30: POC Glucose 166 H 08/07/22 17:25: Hgb 8.2 L, Hct 24.9 L 08/07/22 22:40: Hgb 6.6 L, Hct 19.7 L 08/07/22 22:42: POC Glucose 135 H 08/08/22 04:30: WBC 8.1, RBC 2.63 L, Hgb 7.5 L, Hct 23.4 L, MCV 89.0, MCH 28.5, MCHC 32.1, RDW Std Deviation 42.8, RDW Coeff of [place] 13.3, Plt Count 81 L, MPV 12.9 H, Immature Gran % (Auto) 0.200, Neut % (Auto) 59.5, Lymph % (Auto) 31.6, [place] % (Auto) 7.5, Eos % (Auto) 1.0, Baso % (Auto) 0.2, Absolute Neuts (auto) 4.8, Absolute Lymphs (auto) 2.56, Nucleated RBC % 0, Platelet Estimate MOD 08/08/22 04:30: Sodium 143, Potassium 3.7, Chloride 114 H, Carbon Dioxide 23.0, Anion Gap 6, BUN 22 H, Creatinine 1.06, Estim Creat Clear Calc 55.57, Est GFR (MDRD) Af Amer 86, Est GFR (MDRD) Non-Af 71, BUN/Creatinine Ratio 20.8 H, Glucose 128 H, Calcium 6.9 L 08/08/22 04:30: Hemoglobin A1c 5.9 H 08/08/22 06:15: POC Glucose 114 H 08/08/22 09:50: Hgb 7.4 L, Hct 22.5 L 08/08/22 14:10: Hgb 7.9 L, Hct 25.0 L 08/08/22 16:00: POC Glucose 239 H Assessment & Plan Assessment/Plan (1) GI bleed: PLAN: Currently stable. The differential diagnosis for lower GI bleed would be post polypectomy bleed as he did have polyps removed on that particular colonoscopy. Also different diagnosis would be diverticular bleed, angiodysplasia, hemorrhoidal disease. He is on pantoprazole IV. apixaban and clopidogrel are on hold. Plan is for colonoscopy tomorrow. (2) Anemia: PLAN: Hemoglobin currently 9. Does not require transfusion We will recheck in 6 hours and if dropping may need to recheck that in short order or if it stable then just recheck in the morning labs. Type and screen (3) Type 2 diabetes mellitus without complication: PLAN: Hold Sitagliptin/metformin Sliding scale insulin Charges/Coding Visit Charges Inpatient E&M: 03474 Init Hosp L3
[2022-08-08 18:18] LABS: Bedside Glucose 132 mg/dL (74-106)
[2022-08-08 18:49] LABS: Hemoglobin 8.6 g/dL (13.0-16.5)
[2022-08-08] MEDS: SACUBITRIL/VALSARTAN 24/26 MG TABLET 1 EACH PO (22:46)
[2022-08-08 23:16] LABS: Bedside Glucose 124 mg/dL (74-106)
[2022-08-09] VITALS (21 sets, daily range): BP systolic 89–144; BP diastolic 47–64; PULSE 59–69; RESP 16–18; TEMP 36.3–36.9; O2SAT 93–100; BMI 22.2
[2022-08-09 05:45] LABS: Absolute Lymphocyte Count 2.12 X10^3/uL (0.83-4.51); Absolute Neutrophil Count 4.6 X10^3/uL (2.0-7.7); Basophil# 0.02 X10^3/uL; Basophil% 0.3 % (0-1); Eosinophil# 0.04 X10^3/uL; Eosinophils% 0.5 % (0-5); Hematocrit 22.4 % (40-54); Hemoglobin 7.3 g/dL (13.0-16.5); Lymphocyte # 2.12 X10^3/ul (0.83-4.51); Mean Corp Hgb Conc 32.6 g/dL (32-36); Mean Corpuscular Hgb 28.9 pg (27.0-32.0); Mean Corpuscular Volume 88.5 fL (80-94); Mean Platelet Vol. 13.1 fl (6.2-12.0); Monocyte# 0.54 X10^3/uL; Monocyte% 7.4 % (0-10); NRBC Flagged by Analyzer 0 % (0-5); Neutrophil # 4.56 X10^3/uL (2.7-7.7); Neutrophil % 62.5 % (47-70); POSITIVE COUNT YES; Platelet Count 91 K/mm3 (150-450); RBC Distribution Width CV 14.1 % (11.6-14.6); RBC Distribution Width SD 44.9 fl (35.1-43.9); Red Blood Count 2.53 M/mm3 (4.6-6.2); White Blood Count 7.3 K/mm3 (4.4-11.0)
--- NOTE | 2022-08-09 05:55 | EKG12_ITS ---
Test Reason : MORNING EKG Blood Pressure : / mmHG Vent. Rate : 061 BPM Atrial Rate : 061 BPM P-R Int : 176 ms QRS Dur : 100 ms QT Int : 482 ms P-R-T Axes : 016 070 075 degrees QTc Int : 485 ms Atrial-paced rhythm Cannot rule out Inferior infarct , age undetermined Abnormal ECG When compared with ECG of 07-AUG-2022 11:05, No significant change was found Confirmed by ALYSSA SHAFFER, YOSHI ([id number]), industrial editor JENN NIETO ([id number]) on 08/15/2022 8:57:30 AM Referred By: FLORIN Confirmed By:YOSHI SHAH MD
[2022-08-09 06:32] LABS: AST(SGOT) 17 U/L (15-37); Alanine Aminotransfer ALT/SGPT 10 U/L (16-61); Albumin, Serum 2.5 g/dL (3.2-5.0); Alkaline Phosphatase 54 U/L (45-117); Anion Gap 8 (5-15); BUN 20 mg/dL (7-18); BUN/Creat Ratio 16.8 RATIO (10-20); Calcium,Total 7.4 mg/dL (8.5-10.1); Chloride 112 mmol/L (98-107); Creatinine, Serum 1.19 mg/dL (0.70-1.30); EST Glomerular Filtration Rate 62 mL/min (>60); Est Glom Filt Rate - Afr Amer 75 mL/min (>60); Globulin 2.6 g/dL (2.2-4.2); Glucose 108 mg/dL (74-106); Potassium 3.5 mmol/L (3.5-5.1); Protein, Total 5.1 g/dL (6.4-8.2); Sodium Level 143 mmol/L (136-145)
--- NOTE | 2022-08-09 06:38 | PCM.PN.HOSP ---
Reason for Visit Reason for Visit: Diagnoses Anemia, unspecified (08/07/22) Type 2 diabetes mellitus without complications (08/07/22) Gastrointestinal hemorrhage, unspecified (08/07/22) Subjective Subjective Patient overnight with episode of bloody stools followed by transient ashen appearance and diaphoresis which quickly improved with no specific lightheadedness or dizziness with repeat hemoglobin at that time noted to be 8.6 with no further issues following. This a.m. hemoglobin repeat however 7.3 with pending PRBC administration. Patient denies any abdominal pain or cramping or further significant bleeding since. Prep has been successful per discussion with staff and patient. Planned scope today. Patient denies fevers, chills, nausea, emesis, chest pain or dyspnea. Objective Data Objective Data Vital Signs: Vital Signs Temp Pulse Resp BP Pulse Ox O2 Del Method 98 F 62 16 113/58 L 93 Room Air 08/09/22 06:06 08/09/22 06:06 08/09/22 06:06 08/09/22 06:06 08/09/22 06:06 08/09/22 06:06 Oxygen Delivery Method Room Air Weight: 164 lb 0.383 oz Body Mass Index (BMI) 22.2 Intake & Output: Intake and Output for Last 24 Hours 08/07/22 08/08/22 08/09/22 23:59 23:59 23:59 Intake Total 1590.0 / 1590.0 1398.25 / 1428.25 Output Total 625 / 625 400 / 400 Balance 1590.0 / 1590.0 773.25 / 803.25 -370 / -370 Lab / Micro Data Result Diagrams: 08/09/22 04:56 08/09/22 04:56 Labs: Laboratory Results - last 24 hr 08/08/22 04:30: Hemoglobin A1c 5.9 H 08/08/22 06:15: POC Glucose 114 H 08/08/22 09:50: Hgb 7.4 L, Hct 22.5 L 08/08/22 10:53: POC Glucose 132 H 08/08/22 14:10: Hgb 7.9 L, Hct 25.0 L 08/08/22 16:00: POC Glucose 239 H 08/08/22 18:40: Hgb 8.6 L, Hct 27.0 L 08/08/22 22:43: POC Glucose 124 H 08/09/22 04:56: WBC 7.3, RBC 2.53 L, Hgb 7.3 L, Hct 22.4 L, MCV 88.5, MCH 28.9, MCHC 32.6, RDW Std Deviation 44.9 H, RDW Coeff of [place] 14.1, Plt Count 91 L, MPV 13.1 H, Immature Gran % (Auto) 0.300, Neut % (Auto) 62.5, Lymph % (Auto) 29.0, [place] % (Auto) 7.4, Eos % (Auto) 0.5, Baso % (Auto) 0.3, Absolute Neuts (auto) 4.6, Absolute Lymphs (auto) 2.12, Nucleated RBC % 0 08/09/22 04:56: Sodium 143, Potassium 3.5, Chloride 112 H, Carbon Dioxide 23.0, Anion Gap 8, BUN 20 H, Creatinine 1.19, Estim Creat Clear Calc 49.50, Est GFR (MDRD) Af Amer 75, Est GFR (MDRD) Non-Af 62, BUN/Creatinine Ratio 16.8, Glucose 108 H, Calcium 7.4 L, Total Bilirubin 0.50, AST 17, ALT 10 L, Alkaline Phosphatase 54, Total Protein 5.1 L, Albumin 2.5 L, Globulin 2.6, Albumin/Globulin Ratio 1.0 Micro: Microbiology 08/07/22 10:51 Stool Stool Occult Blood (HAJA) - Final Occult Blood Positive Physical Exam Narrative Physical Examination: General: Awake, alert, oriented x 3 and cooperative, laying in the PCU bed, fatigued, denies any abdominal discomfort. Skin: Continued pale color, normal turgor, no icterus, no cyanosis. HEENT: AT/NC, EOMI, PERRLA, mildly dry MM. Lungs: CTA bilaterally, moderate effort, mild decrease BL bases, no rales, ronchi or wheezing. Heart: Currently regular rate and rhythm; no gallop, rub audible. Abdomen: Soft, NTTP, ND, hyperactive BS Extremities: No cyanosis, clubbing, or edema. Neurological: Patient awake, alert, oriented as noted, cognitive function intact; pupils equally reactive to light and accommodation, cranial nerves II-XII grossly normal, moving all 4 extremities, no focal deficits, strength moderately globally decreased secondary to acute presentation. Psychiatric: Affect appears fatigued otherwise normal, no acute evidence of depressive or anxiety feelings. Assessment & Plan Assessment/Plan (1) GI bleed: PLAN: Plan The patient is an 81 y/o M w/ PMHx: CAD s/p PCI and CABG, Ischemic cardiomyopathy, Combined Systolic/Diastolic CHF s/p AICD placement, HTN, HLD, PAF, PVOD, Diabetes mellitus type II, GERD, Chronic normocytic anemia, CLL who presents to the [facility] ED on 08/07/22 with history of onset of bright red blood per rectum starting Sunday with reported endoscopy recently with polypectomy by Dr. Mccann with no immediate issues after the procedure until onset of bleeding as noted with increasing fatigue, dyspnea prompting ED evaluation. #1. Acute GI Bleed w/ resultant Acute Blood Loss Anemia on Chronic anemia: Work-up in the ED included T97.5, heart rate 65, BP 124/58, respiratory rate 16, her percent on room air, CBC with WC 10.3, hemoglobin 9.0 initially with repeat trending 8.2, platelet 118 without marked shift, unremarkable coags aside PT 17, CMP with chloride 109, BUN/creatinine 23/1.29, glucose 179, unremarkable hepatic profile, positive occult stool, type and screen initiated per ED physician. Admission hemoglobin 9.0 with repeat upon admission 8.2, admitted to PCU, maintain on monitor, patient chronic anticoagulation apixaban as well as Plavix held, judiciously hydrated given underlying heart failure history, cycle H&H's, maintained on IV PPI. Repeat Hgb 08/08/22 AM 6.6, administered 1 u PRBC and repeat HH following Hgb 7.5->08/08/22 episodes of bleeding/diaphoresis, repeat H+H 8.6, 08/09/22 Hgb 7.5, given cardiac history 1 u PRBC ordered with repeat HH afterwards. Pending endoscopy 08/09/22. #2. PAF: We will continue patient home sotalol regimen, both apixaban and Plavix currently held given acute presentation as noted. #3. CAD: Status post PCI and CABG, temporarily holding Plavix, apixaban, continue sotalol, Entresto home regimen. #4. Combined systolic and diastolic CHF/ischemic cardiomyopathy: Status post prior AICD placement, temporarily holding patient home Plavix and apixaban regimen given acute presentation, we will continue patient home sotalol as well as Entresto regimen, judiciously hydrating with low threshold to diurese if necessary. #5. CLL: Patient on chronic ibrutinib daily regimen, temporarily held. #6. Hypertension: Continue home regimen including Entresto, PRN hydralazine. #7. Hyperlipidemia: Not on statin therapy, defer to outpatient. #8. Diabetes mellitus type II: Noted in chart history, not on marked regimen, currently n.p.o. status, hemoglobin A1c requested and noted to be 5.9% consistent with prediabetes, will continue Accu-Chek with insulin sliding scale initiated upon presentation. #9. GERD: As noted maintained on IV PPI given #1. #10. DVT prophylaxis: Holding patient chronic anticoagulant given presentation #1. #11. CODE STATUS: Full code. Admission Evaluation Time spent evaluating chart, patient history, patient evaluation, care planning and discussion with specialists: 35 minutes. Charges/Coding Visit Charges Inpatient E&M: 28501 Subs Hosp L2
[2022-08-09 06:41] LABS: International Normalized Ratio 1.3; Prothrombin Time (Protime)PT. 15.9 SECONDS (11.7-14.9)
[2022-08-09 06:42] LABS: Partial Thromboplast Time 27.2 Seconds (24.1-36.2)
[2022-08-09 07:24] LABS: Bedside Glucose 96 mg/dL (74-106)
[2022-08-09 13:03] LABS: Bedside Glucose 95 mg/dL (74-106)
[2022-08-09 16:03] LABS: Bedside Glucose 92 mg/dL (74-106)
[2022-08-09] MEDS: Lactated Ringers 1,000 ML 15 ML IV (16:24)
--- NOTE | 2022-08-09 17:30 | OP.COLON_ITS ---
Patient Name: Ronnie Lee Procedure Date: 08/09/2022 4:46 PM Date of : 1940 Age: 81 Procedure: Colonoscopy Indications: Hematochezia Providers: David Du DO Medicines: Monitored Anesthesia Care Patient Profile: This is an 81 year old male. Refer to note in patient chart for documentation of history and physical. Last Colonoscopy: within the past month. Complications: No immediate complications. Procedure: Pre-Anesthesia Assessment: - Prior to the procedure, a History and Physical was performed, and patient medications and allergies were reviewed. The patient is competent. The risks and benefits of the procedure and the sedation options and risks were discussed with the patient. All questions were answered and informed consent was obtained. Patient identification and proposed procedure were verified by the physician. Mental Status Examination: normal. Respiratory Examination: clear to auscultation. Prophylactic Antibiotics: The patient does not require prophylactic antibiotics. Prior Anticoagulants: The patient has taken no previous anticoagulant or antiplatelet agents. ASA Grade Assessment: II - A patient with mild systemic disease. After reviewing the risks and benefits, the patient was deemed in satisfactory condition to undergo the procedure. The anesthesia plan was to use moderate sedation / analgesia (conscious sedation). Immediately prior to administration of medications, the patient was re-assessed for adequacy to receive sedatives. The heart rate, respiratory rate, oxygen saturations, blood pressure, adequacy of pulmonary ventilation, and response to care were monitored throughout the procedure. The physical status of the patient was re-assessed after the procedure. After I obtained informed consent, the scope was passed under direct vision. Throughout the procedure, the patient's blood pressure, pulse, and oxygen saturations were monitored continuously. The pediatric colonoscope was introduced through the anus and advanced to the terminal ileum. The colonoscopy was performed without difficulty. The patient tolerated the procedure well. The quality of the bowel preparation was good. Scope In: 5:03:52 PM Scope Withdrawal Time 0 hours 14 minutes 0 seconds Scope Out: 5:27:02 PM Total Procedure Duration Time 0 hours 23 minutes 10 seconds Findings: The perianal and digital rectal examinations were normal. Non-bleeding hemorrhoids were found during retroflexion. The hemorrhoids were Grade I (internal hemorrhoids that do not prolapse). Multiple small and large-mouthed diverticula were found in the recto-sigmoid colon, sigmoid colon and descending colon. Area was successfully injected with 5 mL of a 1:10,000 solution of epinephrine for drug delivery. Coagulation for hemostasis using heater probe was successful. Estimated blood loss was minimal. The exam was otherwise without abnormality on direct and retroflexion views. Impression: - Non-bleeding hemorrhoids. - Diverticulosis in the recto-sigmoid colon, in the sigmoid colon and in the descending colon. Injected. Treated with a heater probe. - The examination was otherwise normal on direct and retroflexion views. - No specimens collected. Recommendation: - Return patient [facility] care. - Resume regular diet. - Continue present medications. - No repeat colonoscopy due to age. Procedure Code(s): --- Professional --- 04885, Colonoscopy, flexible; with control of bleeding, any method CPT copyright 2017 [employer]. All rights reserved. The codes documented in this report are preliminary and upon softball player review may be revised to meet current compliance requirements. David Du DO 08/09/2022 5:30:26 PM This report has been signed electronically. Number of Addenda: 0 Note Initiated On: 08/09/2022 4:46 PM
--- NOTE | 2022-08-09 17:31 | OP.CCLET_ITS ---
08/09/2022 Zachary Christian Re : Colonoscopy procedure for Ronnie Lee Dear Gino This procedure was performed on Tuesday, August 09, 2022. My impressions and recommendations are as follows: Impressions : - Non-bleeding hemorrhoids. - Diverticulosis in the recto-sigmoid colon, in the sigmoid colon and in the descending colon. Injected. Treated with a heater probe. - The examination was otherwise normal on direct and retroflexion views. - No specimens collected. Recommendations : - Return patient to [facility] care. - Resume regular diet. - Continue present medications. - No repeat colonoscopy due to age. My findings are described in the full procedure note, which is enclosed. If I can be of further assistance, please feel free to contact me at . Sincerely, David Du, 08/09/2022 5:30:26 PM This report has been signed electronically.
[2022-08-09 20:37] LABS: Hematocrit 28.1 % (40-54); Hemoglobin 9.5 g/dL (13.0-16.5)
[2022-08-09] MEDS: Insulin Lispro 100 UNIT/ML INSULN.PEN SC (21:10)
[2022-08-09] MEDS: SACUBITRIL/VALSARTAN 24/26 MG TABLET 1 EACH PO (22:02)
[2022-08-10 03:00] VITALS: BP 126/55; PULSE 68; RESP 18; TEMP 36.7; O2SAT 96
[2022-08-10 04:40] LABS: Bedside Glucose 206 mg/dL (74-106)
[2022-08-10 06:23] LABS: Absolute Neutrophil Count 3.5 X10^3/uL (2.0-7.7); Basophil# 0.01 X10^3/uL; Basophil% 0.2 % (0-1); Eosinophil# 0.11 X10^3/uL; Hematocrit 27.4 % (40-54); Hemoglobin 9.2 g/dL (13.0-16.5); Lymphocyte % 25.5 % (19-41); Mean Corp Hgb Conc 33.6 g/dL (32-36); Mean Corpuscular Hgb 29.1 pg (27.0-32.0); Mean Corpuscular Volume 86.7 fL (80-94); Mean Platelet Vol. 12.5 fl (6.2-12.0); Monocyte# 0.48 X10^3/uL; Monocyte% 8.7 % (0-10); NRBC Flagged by Analyzer 0 % (0-5); Neutrophil # 3.47 X10^3/uL (2.7-7.7); Neutrophil % 63.2 % (47-70); POSITIVE COUNT YES; Platelet Count 85 K/mm3 (150-450); RBC Distribution Width CV 14.1 % (11.6-14.6); RBC Distribution Width SD 44.2 fl (35.1-43.9); Red Blood Count 3.16 M/mm3 (4.6-6.2); White Blood Count 5.5 K/mm3 (4.4-11.0)
[2022-08-10 06:46] LABS: ALB/GLOB Ratio 0.9 RATIO (0.9-2.4); AST(SGOT) 12 U/L (15-37); Alanine Aminotransfer ALT/SGPT 9 U/L (16-61); Albumin, Serum 2.2 g/dL (3.2-5.0); Alkaline Phosphatase 53 U/L (45-117); Anion Gap 7 (5-15); BUN 15 mg/dL (7-18); BUN/Creat Ratio 13.5 RATIO (10-20); Calcium,Total 7.2 mg/dL (8.5-10.1); Chloride 114 mmol/L (98-107); Creatinine, Serum 1.11 mg/dL (0.70-1.30); EST Glomerular Filtration Rate 67 mL/min (>60); Est Glom Filt Rate - Afr Amer 81 mL/min (>60); Estimated Creatinine Clearance 53.06 ml/min; Globulin 2.5 g/dL (2.2-4.2); Glucose 127 mg/dL (74-106); Potassium 3.2 mmol/L (3.5-5.1); Protein, Total 4.7 g/dL (6.4-8.2); Sodium Level 145 mmol/L (136-145)
[2022-08-10 06:58] LABS: Bedside Glucose 118 mg/dL (74-106)
[2022-08-10 09:34] VITALS: BP 137/64; PULSE 63; RESP 16; TEMP 36.4; O2SAT 100
--- NOTE | 2022-08-10 09:35 | PCM.PN.HOSP ---
Reason for Visit Reason for Visit: Diagnoses Anemia, unspecified (08/07/22) Type 2 diabetes mellitus without complications (08/07/22) Gastrointestinal hemorrhage, unspecified (08/07/22) Subjective Subjective Has not been up and out of bed, awaiting physical therapy eval, does not note any diarrhea or blood, no nausea Objective Data Objective Data Vital Signs: Vital Signs Temp Pulse Resp BP Pulse Ox O2 Del Method 97.6 F L 63 16 137/64 H 100 Room Air 08/10/22 09:34 08/10/22 09:34 08/10/22 09:34 08/10/22 09:34 08/10/22 09:34 08/10/22 09:34 Oxygen Delivery Method Room Air Weight: 74.4 kg Body Mass Index (BMI) 22.2 Intake & Output: Intake and Output for Last 24 Hours 08/08/22 08/09/22 08/10/22 23:59 23:59 23:59 Intake Total 1398.25 / 1428.25 1653 / 1653 Output Total 625 / 625 1300 / 1300 700 / 700 Balance 773.25 / 803.25 353 / 353 -700 / -700 Lab / Micro Data Result Diagrams: 08/10/22 05:40 08/10/22 05:40 Labs: Laboratory Results - last 24 hr 08/07/22 10:55: Crossmatch See Detail 08/07/22 10:55: Crossmatch See Detail 08/09/22 12:44: POC Glucose 95 08/09/22 15:44: POC Glucose 92 08/09/22 20:20: Hgb 9.5 L, Hct 28.1 L 08/09/22 21:09: POC Glucose 206 H 08/10/22 05:40: WBC 5.5, RBC 3.16 L, Hgb 9.2 L, Hct 27.4 L, MCV 86.7, MCH 29.1, MCHC 33.6, RDW Std Deviation 44.2 H, RDW Coeff of [place] 14.1, Plt Count 85 L, MPV 12.5 H, Immature Gran % (Auto) 0.400, Neut % (Auto) 63.2, Lymph % (Auto) 25.5, [place] % (Auto) 8.7, Eos % (Auto) 2.0, Baso % (Auto) 0.2, Absolute Neuts (auto) 3.5, Absolute Lymphs (auto) 1.40, Nucleated RBC % 0 08/10/22 05:40: Sodium 145, Potassium 3.2 L, Chloride 114 H, Carbon Dioxide 24.0, Anion Gap 7, BUN 15, Creatinine 1.11, Estim Creat Clear Calc 53.06, Est GFR (MDRD) Af Amer 81, Est GFR (MDRD) Non-Af 67, BUN/Creatinine Ratio 13.5, Glucose 127 H, Calcium 7.2 L, Total Bilirubin 0.50, AST 12 L, ALT 9 L, Alkaline Phosphatase 53, Total Protein 4.7 L, Albumin 2.2 L, Globulin 2.5, Albumin/Globulin Ratio 0.9 08/10/22 06:24: POC Glucose 118 H Micro: Microbiology 08/07/22 10:51 Stool Stool Occult Blood (HAJA) - Final Occult Blood Positive Physical Exam Narrative General: Alert, oriented, no apparent distress HEENT: Atraumatic, normocephalic Eyes: Anicteric, normal conjunctiva, extraocular movements grossly intact Neck: Supple Respiratory: Clear to auscultation bilaterally, normal respiratory effort Cardiovascular: Regular rate and rhythm GI: Soft, nontender, nondistended Extremities: No edema Musculoskeletal: Moving all extremities Neuro: No overt focal neurological deficits Skin: No rashes appreciated Psych: Cooperative Assessment & Plan Assessment/Plan (1) GI bleed: PLAN: Plan #Acute GI bleed with resultant acute blood loss anemia on chronic anemia -Hemoglobin initially 9 in the ED which trended down to 8.2 with apixaban and Plavix held and PPI started without ultimately trending down to 6.6 and receiving 2 units packed red blood cells -Had recent colonoscopy 07/11 emetine with polypectomy and given rebleeding he had repeat colonoscopy on 08/09 with colonic diverticula which were treated and no other abnormalities or sources of bleeding identified -Monitoring hemoglobin -If hemoglobin/patient stable tomorrow and he does well with physical therapy likely can DC home #CAD -Status post PCI and CABG, temporarily holding Plavix, apixaban, continue sotalol, Entresto home regimen #pAfib -Continued on sotalol but both Eliquis and Plavix have been held #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
[2022-08-10] MEDS: Sotalol Hydrochloride 80 MG Tablet 120 MG PO ×2 (09:44→20:42)
[2022-08-10] MEDS: SACUBITRIL/VALSARTAN 24/26 MG TABLET 1 EACH PO ×2 (09:44→20:42)
[2022-08-10] MEDS: Potassium Chloride Oral Tablet 20 MEQ 40 MEQ PO (11:14)
[2022-08-10 11:23] LABS: Bedside Glucose 137 mg/dL (74-106)
[2022-08-10 15:20] VITALS: BP 133/70; PULSE 62; RESP 14; TEMP 36.4; O2SAT 100
[2022-08-10] MEDS: Insulin Lispro 100 UNIT/ML INSULN.PEN SC ×2 (16:51→23:30)
[2022-08-10 17:13] LABS: Bedside Glucose 207 mg/dL (74-106)
--- NOTE | 2022-08-10 18:30 | EX.PCM.PN.GI ---
Subjective Subjective Patient underwent colonoscopy yesterday for an acute lower GI bleed. He was discovered to have bleeding diverticuli that was treated endoscopically. He has not seen any more GI bleeding today. Objective Data Objective Data Vital Signs: Vital Signs Temp Pulse Resp BP Pulse Ox O2 Del Method 97.6 F L 62 14 133/70 H 100 Room Air 08/10/22 15:20 08/10/22 15:20 08/10/22 15:20 08/10/22 15:20 08/10/22 15:20 08/10/22 15:20 Oxygen Delivery Method Room Air Weight: 164 lb 0.383 oz Body Mass Index (BMI) 22.2 Intake & Output: Intake and Output for Last 24 Hours 08/08/22 08/09/22 08/10/22 23:59 23:59 23:59 Intake Total 1398.25 / 1428.25 1653 / 1653 350 / 350 Output Total 625 / 625 1300 / 1300 1250 / 1250 Balance 773.25 / 803.25 353 / 353 -900 / -900 Lab / Micro Data Result Diagrams: 08/10/22 05:40 08/10/22 05:40 Labs: Laboratory Results - last 24 hr 08/09/22 20:20: Hgb 9.5 L, Hct 28.1 L 08/09/22 21:09: POC Glucose 206 H 08/10/22 05:40: WBC 5.5, RBC 3.16 L, Hgb 9.2 L, Hct 27.4 L, MCV 86.7, MCH 29.1, MCHC 33.6, RDW Std Deviation 44.2 H, RDW Coeff of [place] 14.1, Plt Count 85 L, MPV 12.5 H, Immature Gran % (Auto) 0.400, Neut % (Auto) 63.2, Lymph % (Auto) 25.5, [place] % (Auto) 8.7, Eos % (Auto) 2.0, Baso % (Auto) 0.2, Absolute Neuts (auto) 3.5, Absolute Lymphs (auto) 1.40, Nucleated RBC % 0 08/10/22 05:40: Sodium 145, Potassium 3.2 L, Chloride 114 H, Carbon Dioxide 24.0, Anion Gap 7, BUN 15, Creatinine 1.11, Estim Creat Clear Calc 53.06, Est GFR (MDRD) Af Amer 81, Est GFR (MDRD) Non-Af 67, BUN/Creatinine Ratio 13.5, Glucose 127 H, Calcium 7.2 L, Total Bilirubin 0.50, AST 12 L, ALT 9 L, Alkaline Phosphatase 53, Total Protein 4.7 L, Albumin 2.2 L, Globulin 2.5, Albumin/Globulin Ratio 0.9 08/10/22 06:24: POC Glucose 118 H 08/10/22 11:05: POC Glucose 137 H 08/10/22 16:49: POC Glucose 207 H Micro: Microbiology 08/07/22 10:51 Stool Stool Occult Blood (HAJA) - Final Occult Blood Positive Physical Exam Narrative General: Alert, oriented, no apparent distress HEENT: Atraumatic, normocephalic Eyes: Anicteric, normal conjunctiva, extraocular movements grossly intact Neck: Supple Respiratory: Clear to auscultation bilaterally, normal respiratory effort Cardiovascular: Regular rate and rhythm GI: Soft, nontender, nondistended Extremities: No edema Musculoskeletal: Moving all extremities Neuro: No overt focal neurological deficits Skin: No rashes appreciated Psych: Cooperative Assessment & Plan Assessment/Plan (1) GI bleed: (2) Anemia: PLAN: Plan Through gentleman comes in with acute lower GI bleed causing blood loss anemia. Is identified as having a diverticular bleed. Hemoglobin is 9.2 which is basically the same as 9.5. Recommend continue all his H&H. Upon DC I would hold Plavix and not restart for 7 days after discharge. He can be discharged on Eliquis therapy.. Charges/Coding Visit Charges Inpatient E&M: 42010 Subs Hosp L3
[2022-08-10] MEDS: Ensure Clear 120 ML Liquid PO (20:43)
[2022-08-10 20:46] VITALS: BP 112/59; PULSE 62; RESP 18; TEMP 36.4; O2SAT 100
[2022-08-10 23:56] LABS: Bedside Glucose 203 mg/dL (74-106)
[2022-08-11 03:06] VITALS: BP 126/66; PULSE 78; RESP 18; TEMP 36.5; O2SAT 99
[2022-08-11 05:24] LABS: Absolute Lymphocyte Count 1.61 X10^3/uL (0.83-4.51); Absolute Neutrophil Count 3.4 X10^3/uL (2.0-7.7); Basophil# 0.01 X10^3/uL; Basophil% 0.2 % (0-1); Eosinophil# 0.14 X10^3/uL; Eosinophils% 2.5 % (0-5); Hematocrit 26.5 % (40-54); Hemoglobin 8.7 g/dL (13.0-16.5); Lymphocyte # 1.61 X10^3/ul (0.83-4.51); Lymphocyte % 28.2 % (19-41); Mean Corp Hgb Conc 32.8 g/dL (32-36); Mean Corpuscular Hgb 28.3 pg (27.0-32.0); Mean Corpuscular Volume 86.3 fL (80-94); Mean Platelet Vol. 12.4 fl (6.2-12.0); Monocyte# 0.51 X10^3/uL; Monocyte% 8.9 % (0-10); NRBC Flagged by Analyzer 0 % (0-5); Neutrophil # 3.41 X10^3/uL (2.7-7.7); Neutrophil % 59.8 % (47-70); POSITIVE COUNT YES; Platelet Count 89 K/mm3 (150-450); RBC Distribution Width CV 14.5 % (11.6-14.6); Red Blood Count 3.07 M/mm3 (4.6-6.2); White Blood Count 5.7 K/mm3 (4.4-11.0)
[2022-08-11 05:53] LABS: ALB/GLOB Ratio 0.8 RATIO (0.9-2.4); AST(SGOT) 5 U/L (15-37); Alanine Aminotransfer ALT/SGPT 7 U/L (16-61); Albumin, Serum 2.1 g/dL (3.2-5.0); Alkaline Phosphatase 53 U/L (45-117); Anion Gap 6 (5-15); BUN 19 mg/dL (7-18); BUN/Creat Ratio 15.2 RATIO (10-20); Calcium,Total 7.3 mg/dL (8.5-10.1); Chloride 113 mmol/L (98-107); Creatinine, Serum 1.25 mg/dL (0.70-1.30); EST Glomerular Filtration Rate 59 mL/min (>60); Est Glom Filt Rate - Afr Amer 71 mL/min (>60); Estimated Creatinine Clearance 47.12 ml/min; Globulin 2.6 g/dL (2.2-4.2); Glucose 141 mg/dL (74-106); Potassium 3.5 mmol/L (3.5-5.1); Protein, Total 4.7 g/dL (6.4-8.2); Sodium Level 143 mmol/L (136-145)
--- NOTE | 2022-08-11 07:00 | PN.GI_ITS ---
Subjective Subjective Patient has not had any more signs and symptoms of GI bleeding. Objective Data Objective Data Vital Signs: Vital Signs Temp Pulse Resp BP Pulse Ox O2 Del Method 97.6 F L 61 14 114/45 L 98 Room Air 08/11/22 09:06 08/11/22 09:06 08/11/22 09:06 08/11/22 09:06 08/11/22 09:06 08/11/22 10:00 Oxygen Delivery Method Room Air Weight: 164 lb 0.383 oz Body Mass Index (BMI) 22.2 Intake & Output: Intake and Output for Last 24 Hours 08/09/22 08/10/22 08/11/22 23:59 23:59 23:59 Intake Total 1653 / 1653 700 / 700 350 / 350 Output Total 1300 / 1300 1400 / 1400 400 / 400 Balance 353 / 353 -700 / -700 -50 / -50 Lab / Micro Data Result Diagrams: 08/11/22 04:30 08/11/22 04:30 Labs: Laboratory Results - last 24 hr 08/10/22 16:49: POC Glucose 207 H 08/10/22 23:27: POC Glucose 203 H 08/11/22 04:30: WBC 5.7, RBC 3.07 L, Hgb 8.7 L, Hct 26.5 L, MCV 86.3, MCH 28.3, MCHC 32.8, RDW Std Deviation 45.0 H, RDW Coeff of [place] 14.5, Plt Count 89 L, MPV 12.4 H, Immature Gran % (Auto) 0.400, Neut % (Auto) 59.8, Lymph % (Auto) 28.2, [place] % (Auto) 8.9, Eos % (Auto) 2.5, Baso % (Auto) 0.2, Absolute Neuts (auto) 3.4, Absolute Lymphs (auto) 1.61, Nucleated RBC % 0 08/11/22 04:30: Sodium 143, Potassium 3.5, Chloride 113 H, Carbon Dioxide 24.0, Anion Gap 6, BUN 19 H, Creatinine 1.25, Estim Creat Clear Calc 47.12, Est GFR (MDRD) Af Amer 71, Est GFR (MDRD) Non-Af 59 L, BUN/Creatinine Ratio 15.2, Glucose 141 H, Calcium 7.3 L, Total Bilirubin 0.40, AST 5 L, ALT 7 L, Alkaline Phosphatase 53, Total Protein 4.7 L, Albumin 2.1 L, Globulin 2.6, Albumin/Globulin Ratio 0.8 L 08/11/22 06:30: POC Glucose 128 H 08/11/22 11:27: POC Glucose 219 H Micro: Microbiology 08/07/22 10:51 Stool Stool Occult Blood (HAJA) - Final Occult Blood Positive Physical Exam Narrative General: Alert, oriented, no apparent distress HEENT: Atraumatic, normocephalic Eyes: Anicteric, normal conjunctiva, extraocular movements grossly intact Neck: Supple Respiratory: Clear to auscultation bilaterally, normal respiratory effort Cardiovascular: Regular rate and rhythm GI: Soft, nontender, nondistended Extremities: No edema Musculoskeletal: Moving all extremities Neuro: No overt focal neurological deficits Skin: No rashes appreciated Psych: Cooperative Assessment & Plan Assessment/Plan (1) GI bleed: (2) Anemia: PLAN: Plan Through gentleman comes in with acute lower GI bleed causing blood loss anemia. Is identified as having a diverticular bleed. Hemoglobin is 9.2 which is basically the same as 9.5. Recommend continue all his H&H. Upon DC I would hold Plavix and not restart for 7 days after discharge. He can be discharged on Eliquis therapy.. Charges/Coding Visit Charges Inpatient E&M: 86394 Subs Hosp L2
[2022-08-11 07:47] LABS: Bedside Glucose 128 mg/dL (74-106)
[2022-08-11 09:06] VITALS: BP 114/45; PULSE 61; RESP 14; TEMP 36.4; O2SAT 98
[2022-08-11] MEDS: Sotalol Hydrochloride 80 MG Tablet 120 MG PO (09:43)
[2022-08-11] MEDS: 0.9% Saline Lock 10 ML Syringe IV (09:43)
[2022-08-11] MEDS: SACUBITRIL/VALSARTAN 24/26 MG TABLET 1 EACH PO (09:43)
[2022-08-11] MEDS: Ensure Clear 120 ML Liquid PO (10:23)
[2022-08-11 11:49] LABS: Bedside Glucose 219 mg/dL (74-106)
--- NOTE | 2022-08-11 12:08 | DCINST_ITS ---
Discharge Instructions Diet Discharge Diet: - (DASH diet, 3000 mg sodium restriction, 2 L fluid restriction) Activity Discharge Activity: - (Return to normal activity as tolerated) Follow Up Care Test Results: Test results from this visit will be discussed in further detail at your follow- up appointment, if applicable. Discharge Plan Admission Admit Date/Time: 08/07/22 13:45 Primary Reason for Your Visit: GI bleed Attending Provider: Lexi López Primary Care Provider: Zachary Christian Consulting Providers: Nolan Muse ; Lacy Shahid Instructions Patient Instructions: ED Lower GI Bleeding (Stable) Additional Instructions / Restrictions: DISCHARGE INSTRUCTIONS PLEASE READ *Please take this with you to your next doctors appointment* -Would recommend lab work (CBC and bmp) to check your hemoglobin and kidney function in 5 days through your primary care physician's office. Please call their office upon discharge to obtain order for lab work. -You will need to follow-up with Dr. Du with GI in his office upon discharge. Please call his office to schedule your hospital follow-up appointment (ph. [phone]) -Please hold your Plavix for 7 days after discharge but you can resume your Eliquis -Please call your primary care provider's office upon discharge to schedule a hospital follow up within 1 week. -For any concerning signs or symptoms please call 911 or proceed to the nearest emergency department Discharge Orders/Prescriptions Prescriptions: Continued pantoprazole 40 mg tablet,delayed release (DR/EC) 40 mg PO DAILY Imbruvica 140 mg capsule 140 mg PO DAILY Eliquis 5 mg tablet 5 mg PO BID cyanocobalamin (vitamin B-12) 1,000 mcg tablet 1,000 mcg PO DAILY vitamin B complex Tablet 1 tab PO DAILY Janumet XR 50-1,000 mg tablet, ER multiphase 24 hr 0.5 tab PO BID coenzyme Q10 [Co Q-10] 400 mg capsule 400 mg PO DAILY Entresto 24-26 mg tablet 1 tab PO BID Qty: 120 3RF ferrous sulfate 1 tab sotalol 80 mg tablet 120 mg PO BID Qty: 270 3RF Held clopidogrel 75 mg tablet 75 mg PO DAILY Qty: 90 3RF Hold Instructions: Resume on 08/19/22. Referrals / Follow Up: David Du DO [Med Staff - Active Staff] - See Referral Note (You will need to follow-up with Dr. Du with GI in his office upon discharge. Please call his office to schedule your hospital follow-up appointment (ph. [phone])) Zachary Christian MD [Primary Care Provider] - Within 1 Week Disposition Disposition (needs filled in before D/C Order can be placed): Home, Self Care
--- NOTE | 2022-08-11 12:11 | PCM.DC.SUM ---
Providers Date of Admission: 08/07/22 Date of Discharge: 08/11/22 Primary Care Physician: Dr. Zachary Christian MD Consultations 08/07/22 15:15 Consult: Gastroenterology Routine Consulting Provider: [facility] Reason for Consult: GI bleed EMERGENT Consult: No MD Notified: Yes Date Notified: 08/07/22 Time Notified: 13:52 Method of Notification: Text Reason For Visit: gi bleed Diagnosis Discharge Diagnosis (1) GI bleed: Status: Acute Code(s): K92.2 - Gastrointestinal hemorrhage, unspecified (2) Anemia: Status: Acute Code(s): D64.9 - Anemia, unspecified Plan #Acute GI bleed with resultant acute blood loss anemia on chronic anemia -Hemoglobin initially 9 in the ED which trended down to 8.2 with apixaban and Plavix held and PPI started without ultimately trending down to 6.6 and receiving 2 units packed red blood cells -Had recent colonoscopy with polypectomy and given rebleeding he had repeat colonoscopy on 08/09 with colonic diverticula which were treated and no other abnormalities or sources of bleeding identified #CAD -Status post PCI and CABG #pAfib -Continued on sotalol and AC #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 -Status post AICD placement -Continue sotalol and Entresto #CLL -Chronically on ibrutinib which was temporarily held Medications at Discharge Home Medications apixaban 5 mg tablet (Eliquis) 5 mg PO BID blood thinner 08/29/21 coenzyme Q10 400 mg capsule (Co Q-10) 400 mg PO DAILY supplement 08/29/21 cyanocobalamin (vitamin B-12) 1,000 mcg tablet 1,000 mcg PO DAILY vitamin 08/29/21 ibrutinib 140 mg capsule (Imbruvica) 140 mg PO DAILY 08/29/21 pantoprazole 40 mg tablet,delayed release 40 mg PO DAILY reflux 08/29/21 sitagliptin phos 50 mg-metformin ER 1,000 mg tablet,extend rel 24h mp (Janumet XR) 0.5 tab PO BID diabetes 08/29/21 vitamin B complex 1 tab PO DAILY vitamin 08/29/21 clopidogrel 75 mg tablet 75 mg PO DAILY #90 tabs 12/13/21 sacubitril 24 mg-valsartan 26 mg tablet (Entresto) 1 tab PO BID #120 tabs 12/13/21 sotalol 80 mg tablet 120 mg PO BID #270 tabs 02/20/22 ferrous sulfate 1 tab supplement 08/07/22 Hospital Course Procedures EGD Summary of Care Provided Minutes Spent on Discharge: 36 Hospital Course: 81-year-old male with a history of coronary artery disease status post CABG, type 2 diabetes, peripheral vascular disease, CLL, ischemic cardiomyopathy presented to the ED 08/07/2022 with bright red blood per rectum for several days every few hours. On 26 July patient had polypectomy on colonoscopy by Dr. Mccann. Hemoglobin of 9 on presentation and GI consulted and patient was started on PPI and his Plavix and Eliquis were held. Hemoglobin did trend down to 6.6 and he received 2 units packed red blood cells. He had colonoscopy 08/09 with diverticula noted and treated with heater probe and injected and it was felt that his bleeding was due to diverticular bleed. Hemoglobin remained stable and he was resumed on his Eliquis with plans to hold Plavix for 7 days. Discharge instructions as followed: DISCHARGE INSTRUCTIONS PLEASE READ *Please take this with you to your next doctors appointment* -Would recommend lab work (CBC and bmp) to check your hemoglobin and kidney function in 5 days through your primary care physician's office.? Please call their office upon discharge to obtain order for lab work. -You will need to follow-up with Dr. Du with GI in his office upon discharge.? Please call his office to schedule your hospital follow-up appointment (ph. [phone]) -Please hold your Plavix for 7 days after discharge but you can resume your Eliquis -Please call your primary care provider's office upon discharge to schedule a hospital follow up within 1 week. -For any concerning signs or symptoms please call 911 or proceed to the nearest emergency department Physical Exam Narrative General: Alert, oriented, no apparent distress HEENT: Atraumatic, normocephalic Eyes: Anicteric, normal conjunctiva, extraocular movements grossly intact Neck: Supple Respiratory: Clear to auscultation bilaterally, normal respiratory effort Cardiovascular: Regular rate and rhythm GI: Soft, nontender, nondistended Extremities: No edema Musculoskeletal: Moving all extremities Neuro: No overt focal neurological deficits Skin: No rashes appreciated Psych: Cooperative Weight / BMI Weight Weight: 74.4 kg Body Mass Index (BMI) 22.2 ABG / Lab / Microbiology Data Result Diagrams: 08/11/22 04:30 08/11/22 04:30 Laboratory: Laboratory Results - last 24 hr 08/10/22 16:49: POC Glucose 207 H 08/10/22 23:27: POC Glucose 203 H 08/11/22 04:30: WBC 5.7, RBC 3.07 L, Hgb 8.7 L, Hct 26.5 L, MCV 86.3, MCH 28.3, MCHC 32.8, RDW Std Deviation 45.0 H, RDW Coeff of [place] 14.5, Plt Count 89 L, MPV 12.4 H, Immature Gran % (Auto) 0.400, Neut % (Auto) 59.8, Lymph % (Auto) 28.2, [place] % (Auto) 8.9, Eos % (Auto) 2.5, Baso % (Auto) 0.2, Absolute Neuts (auto) 3.4, Absolute Lymphs (auto) 1.61, Nucleated RBC % 0 08/11/22 04:30: Sodium 143, Potassium 3.5, Chloride 113 H, Carbon Dioxide 24.0, Anion Gap 6, BUN 19 H, Creatinine 1.25, Estim Creat Clear Calc 47.12, Est GFR (MDRD) Af Amer 71, Est GFR (MDRD) Non-Af 59 L, BUN/Creatinine Ratio 15.2, Glucose 141 H, Calcium 7.3 L, Total Bilirubin 0.40, AST 5 L, ALT 7 L, Alkaline Phosphatase 53, Total Protein 4.7 L, Albumin 2.1 L, Globulin 2.6, Albumin/Globulin Ratio 0.8 L 08/11/22 06:30: POC Glucose 128 H 08/11/22 11:27: POC Glucose 219 H Microbiology: Microbiology 08/07/22 10:51 Stool Stool Occult Blood (HAJA) - Final Occult Blood Positive D/C Instructions Discharge Diet: - (DASH diet, 3000 mg sodium restriction, 2 L fluid restriction) Meaningful Use Info Meaningful Use Diagnoses (Choose all that apply): None applicable Discharge Plan Admission Admit Date/Time: 08/07/22 13:45 Primary Reason for Your Visit: GI bleed Attending Provider: Lexi López Primary Care Provider: Zachary Christian Consulting Providers: Nolan Muse ; Lacy Shahid Instructions Patient Instructions: ED Lower GI Bleeding (Stable) Additional Instructions / Restrictions: DISCHARGE INSTRUCTIONS PLEASE READ *Please take this with you to your next doctors appointment* -Would recommend lab work (CBC and bmp) to check your hemoglobin and kidney function in 5 days through your primary care physician's office. Please call their office upon discharge to obtain order for lab work. -You will need to follow-up with Dr. Du with GI in his office upon discharge. Please call his office to schedule your hospital follow-up appointment (ph. [phone]) -Please hold your Plavix for 7 days after discharge but you can resume your Eliquis -Please call your primary care provider's office upon discharge to schedule a hospital follow up within 1 week. -For any concerning signs or symptoms please call 911 or proceed to the nearest emergency department Patient Problems: Altered Health Status related to Hospitalization Patient Goals: *Optimal Level of Health *Keep Appointments *Medication Compliance *Remain Safe Discharge Orders/Prescriptions Prescriptions: Continued pantoprazole 40 mg tablet,delayed release (DR/EC) 40 mg PO DAILY Imbruvica 140 mg capsule 140 mg PO DAILY Eliquis 5 mg tablet 5 mg PO BID cyanocobalamin (vitamin B-12) 1,000 mcg tablet 1,000 mcg PO DAILY vitamin B complex Tablet 1 tab PO DAILY Janumet XR 50-1,000 mg tablet, ER multiphase 24 hr 0.5 tab PO BID coenzyme Q10 [Co Q-10] 400 mg capsule 400 mg PO DAILY Entresto 24-26 mg tablet 1 tab PO BID Qty: 120 3RF ferrous sulfate 1 tab sotalol 80 mg tablet 120 mg PO BID Qty: 270 3RF Held clopidogrel 75 mg tablet 75 mg PO DAILY Qty: 90 3RF Hold Instructions: Resume on 08/19/22. Referrals / Follow Up: David Du DO [Med Staff - Active Staff] - See Referral Note (You will need to follow-up with Dr. Du with GI in his office upon discharge. Please call his office to schedule your hospital follow-up appointment (ph. [phone])) Zachary Christian MD [Primary Care Provider] - 08/21/22 2:20 am Disposition Disposition (needs filled in before D/C Order can be placed): Home, Self Care Charges/Coding Visit Charges Inpatient E&M: 90166 Disch Hosp >30min
--- NOTE | 2022-08-11 12:21 | CASEMGMT ---
RN CM notified that patient is discharging today. RN CM in to discuss needs with patient. No therapy recommended at discharge. Patient denies needs at this time. Patient had no further questions or concerns.
== END 2022-08-11 12:54 | disposition home or self-care (01) | DRG 378 ==
LOC: ED 11:43 → PCU 14:44
PROVIDERS: Anesthesiology; Family Medicine; Internal Medicine Gastroenterology; Emergency Provider Emergency Medicine; PCP Family Medicine; Visit Provider Internal Medicine
PROC: 0DJD8ZZ Inspection of Lower Intestinal Tract, Via Natural or Artificial Opening Endoscopic (ICD-10-PCS; CPT 45378; principal; 2022-08-09 16:55)
DX: K57.31 Diverticulosis of large intestine without perforation or abscess with bleeding (principal); C91.10 Chronic lymphocytic leukemia of B-cell type not having achieved remission; D62 Acute posthemorrhagic anemia; I50.42 Chronic combined systolic (congestive) and diastolic (congestive) heart failure; E11.51 Type 2 diabetes mellitus with diabetic peripheral angiopathy without gangrene; E78.00 Pure hypercholesterolemia, unspecified; K21.9 Gastro-esophageal reflux disease without esophagitis; I11.0 Hypertensive heart disease with heart failure; I48.0 Paroxysmal atrial fibrillation; I25.5 Ischemic cardiomyopathy; I25.10 Atherosclerotic heart disease of native coronary artery without angina pectoris; K64.0 First degree hemorrhoids; I25.2 Old myocardial infarction; Z95.1 Presence of aortocoronary bypass graft; Z95.5 Presence of coronary angioplasty implant and graft; Z95.810 Presence of automatic (implantable) cardiac defibrillator; Z79.01 Long term (current) use of anticoagulants; Z79.02 Long term (current) use of antithrombotics/antiplatelets; Z79.84 Long term (current) use of oral hypoglycemic drugs; Z79.899 Other long term (current) drug therapy
CPT/HCPCS: 36415; 80048; 80053; 82274; 82962; 83036; 83690; 84484; 85014; 85018; 85025; 85610; 85730; 86850; 86900; 86901; 86920; 93005; 97162; 97802; 99285; J7030; J7040; J7050; J7120; P9016; A4216

== ENCOUNTER → 2024-10-23 | Outpatient (CLI) | payer MEDICARE, SELFPAY ==
[2024-10-23 15:12] LABS: Hematocrit 45.7 % (40-54); Hemoglobin 15.1 g/dL (13.0-16.5); Immature Granulocytes Count 0.030 X10^3/uL (0.0-0.0); Mean Corp Hgb Conc 33.0 g/dL (32-36); Mean Corpuscular Volume 84.3 fL (80-94); Mean Platelet Vol. 11.8 fl (6.2-12.0); NRBC Flagged by Analyzer 0 % (0-5); POSITIVE DIFFERENTIAL YES; POSITIVE MORPHOLOGY YES; Platelet Count 185 K/mm3 (150-450); RBC Distribution Width CV 14.2 % (11.6-14.6); RBC Distribution Width SD 43.3 fl (35.1-43.9); Red Blood Count 5.42 M/mm3 (4.6-6.2); White Blood Count 15.9 K/mm3 (4.4-11.0)
[2024-10-23 15:43] LABS: Differential Indicated SCAN CRITERIA MET
[2024-10-23 16:05] LABS: Anion Gap 15 (5-15); BUN 22 mg/dL (4-19); BUN/Creat Ratio 15.1 RATIO (10-20); Calcium,Total 9.6 mg/dL (7.6-11.0); Carbon Dioxide 20.4 mmol/L (21.0-32.0); Chloride 104 mmol/L (98-108); Glucose 209 mg/dL (70-99); Magnesium 2.3 mg/dL (1.5-2.2); Potassium 3.9 mmol/L (3.3-5.1)
--- OUTSIDE RECORDS SUMMARY | 2024-10-23 19:57 | XMS RPT_ITS | CCD ---
Author Organization [facility] Care Team Providers Care Contracting Executive Name Role Phone REFERRING, DANN WO ID Unavailable Unavailable JOSE HOLT Unavailable Unavailab EVERT Sun Unavailable Unavailable BRENT SHAFFER, ZACHARY Primary Care Physician Sheri PT, Judy Unavailable Unavailable Alfa RN, Naheed Unavailable Unavailable Brent SHAFFER, Zachary Ren Primary Care Provider Alfa RN, Naheed Unavailable Unavailable Zachary Kennedy MD Primary Care Provider Zachary Kennedy MD Primary Care Provider Alfa RN, Naheed Unavailable Unavailable Zachary Kennedy MD Primary Care Provider Dioni, Marcos S Unavailable Dr. Zachary Kennedy Primary Care Provider Dr. Zachary Kennedy Referring Provider Daniela Dunn Attending Provider Unavailable Dr. Aram Stoll Emergency Provider Dr. Nolan Muse Attending Provider Dr. Nolan Muse Admit Provider Dr. Nolan Muse Other Provider Dr. Lacy Shahid Attending Provider Dr. Lacy Shahid Other Provider Friend, Dr. Hernandez Attending Provider Dr. Lexi López Attending Provider Dr. Lexi López Other Provider Alfa RN, Naheed Unavailable Unavailable Dioni SHAFFER, Seaforth S Unavailable DENISE HERNANDES MD Attending Unavaila ble BRENT MD, ZACHARY Primary Care Unavailable BRENT SHAFFER, ZACHARY Primary Care Unavailable SANGEETA SHAFFER, DENISE Attending Unavailiris KENNEDY MD, ZACHARY Primary Care Unavailable SANGEETA SHAFFER, DNEISE Attending Unavailiris Kennedy MD, Zachary Ren Primary Care Provider Haagen PUBLIC HEALTH EPIDEMIOLOGIST.HEATING AND BLENDING SUPERVISOR, Ya Unavailable [place]alle PUBLIC HEALTH EPIDEMIOLOGIST.HEATING AND BLENDING SUPERVISOR, Isidra A Unavailable Brent SHAFFER, Dr. Sharma Primary Care Provider Dioni SHAFFER, Dr. Rodríguez Attending Provider [phone] Dioni SHAFFER, Dr. Rodríguez Referring Provider [phone] Brent, Zachary Primary Care Unavailable Nathaniel Murillo NP Attending Unavailable [place], Zachary Referring Unavailable Dioni, Marcos Referring Unavailable Dioni, Marcos Attending Unavailable [place], Zachary Primary Care Unavailable Chidi EAR MUFF ASSEMBLER, Nathaniel Gomez Attending Unavailable Brent, Zachary Referring Unavailable Brent, Zachary Primary Care Unavailable Dioni, Marcos Attending Unavailable Dioni, Marcos Referring Unavailable [place], Zachary Primary Care Unavailable [place], Zachary Primary Care Unavailable Dioni, Seaforth Referring Unavailable Dioni, Marcos Attending Unavailable Brent, Zachary Primary Care Unavailable Dioni, Marcos Referring Unavailable Dioni, Marcos Attending Unavailable EDMOND SAAVEDRA Attending Unavailable BRENT, ZACHARY Ren Referring Unavailable BRENT, ZACHARY Ren Primary Care Unavailable NAHEED BECERRA Attending Unavailable BRENT, ZACHARY J Referring Unavailable BRENT, ZACHARY J Primary Care Unavailable NAHEED BECERRA Attending Unavailable BRENT, ZAHCARY J Referring Unavailable BRENT, ZACHARY J Primary Care Unavailable NAHEED BECERRA Attending Unavailable BRENT, ZACHARY J Referring Unavailable BRENT, ZACHARY J Primary Care Unavailable NAHEED BECERRA Attending Unavailable BRENT, ZACHARY J Referring Unavailable BRENT, ZACHARY J Primary Care Unavailable BRENT, ZACHARY J Referring Unavailable BRENT, ZACHARY J Primary Care Unavailable NAHEED BECERRA Attending Unavailable BRENT, ZACHARY J Primary Care Unavailable STU LLOYD Attending Unavailable ABIGAIL MOSS Referring Unavailable BRENT, ZACHARY J Primary Care Unavailable ABIGAIL MOSS Attending Unavailable CANDELARIA, JAJA Y Referring Unavailable BRENT, ZACHARY J Primary Care Unavailable CANDELARIA, JAJA Y Attending Unavailable BRENT, ZACHARY J Referring Unavailable BRENT, ZACHARY Ren Primary Care Unavailable ABIGAIL MOSS Referring Unavailable BRENT, ZACHARY Ren Primary Care Unavailable BRENT, ZACHARY Ren Primary Care Unavailable BRENT, ZACHARY Ren Referring Unavailable BRENT, ZACHARY Ren Primary Care Unavailable BRENT, ZACHARY Ren Attending Unavailable BRENT, ZACHARY Ren Primary Care Unavailable YA MOREL Referring Unavailable BRENT, ZACHARY Ren Primary Care Unavailable YA MOREL Attending Unavailable BRENT, ZACHARY Ren Primary Care Unavailable JANEEN GOODMAN Attending Unavailable BIBIANA WYATT Referring Unavailable BRENT, ZACHARY Ren Primary Care Unavailable YA MOREL Attending Unavailable BRENT, ZACHARY Ren Primary Care Unavailable ABIGAIL MOSS Referring Unavailable BRENT, ZACHARY Ren Primary Care Unavailable BRENT, ZACHARY Ren Primary Care Unavailable YA MOREL Referring Unavailable BRENT, ZACHARY Ren Primary Care Unavailable YA MOREL Attending Unavailable BRENT, ZACHARY Ren Primary Care Unavailable BRENT, ZACHARY Ren Referring Unavailable [place] Dr. Zachary SHAFFER Primary Care Provider [phone] Dr. Marcos Wheatley MD Attending Provider Dr. Marcos Wheatley MD Referring Provider Dr. Zachary Kennedy MD Referring Provider [facility] EAR MUFF ASSEMBLERNathaniel Naranjo Attending Provider Allergies Allergy Classification Reported Allergen(s) Allergy Type Date of Onset Reaction(s) Facility Codeine / Promethazine (1 source) Codeine / Promethazine Drug Allergy 04-18-19 12 Intolerance [facility] Iodine (and Iodine containting drugs) (1 source) Iodine Drug Allergy 04-18-19 12 Anaphylaxis [facility] metFORMIN / rosiglitazone (1 source) metFORMIN / rosiglitazone Drug Allergy 04-18-19 12 Intolerance [facility] Work Phone: Opioid Agonists (1 source) oxyCODONE Drug Allergy 07-20-19 18 GI Upset, Vomiting [facility] (7 sources) Aspartame Drug Allergy headaches [facility] (12 sources) Codeine; Translations: [codeine] Drug Allergy 08-08-19 23 LOC, Low BP [facility] (20 sources) Iodine; Translations: [IODINE] Drug Allergy 03-12-19 11 Anaphylaxis [facility] (20 sources) metFORMIN / rosiglitazone; Translations: [metformin-rosig litazone] Drug Allergy 04-18-19 12 Other: See Comments, Intolerance [facility] (20 sources) oxyCODONE; Translations: [oxycodone] Drug Allergy 07-20-19 18 GI Upset, Vomiting [facility] (12 sources) Promethazine; Translations: [promethazine] Drug Allergy 08-08-19 23 unsure, Low BP [facility] (7 sources) Artificial sweetners Food allergy headaches [facility] (20 sources) Codeine / Promethazine; Translations: [PROMETHAZINE-CO DEINE] Drug Allergy 04-18-19 12 Other: See Comments, Intolerance [facility] (20 sources) artificial sweetener [Other] Propensity to adverse reactions 04-18-19 12 Other: See Comments [facility] (5 sources) metFORMIN Drug Allergy 08-08-19 [address] [facility] (5 sources) rosiglitazone Drug Allergy 08-08-19 23 Patient refuses [facility] (6 sources) Food Allergies: Uncoded; Translations: [Food Allergies: Uncoded] Allergy to substance 08-08-[address] [facility] Comment on above: ARTIFICIAL SWEETENER (2 sources) empagliflozin; Translations: [empagliflozin] Drug Allergy dizziness [facility] [place] Comment on above: Dizziness (20 sources) metFORMIN / rosiglitazone; Translations: [ROSIGLITAZONE-M ETFORMIN] Drug Allergy 04-18-19 12 Intolerance [facility] Work Phone: (1 source) Codeine Drug Allergy 12-13-[address] [facility] Repository (1 source) metFORMIN Drug Allergy 12-13-[address] [facility] Repository (1 source) oxyCODONE Drug Allergy 12-13-[address] [facility] Repository (1 source) Promethazine Drug Allergy 12-13-[address] [facility] Repository (1 source) rosiglitazone Drug Allergy 12-13-[address] [facility] Repository Medications Current Medications Medication Drug Class(es) Dates Sig (Normalized) Sig (Original) Adult Aspirin Regimen 81 mg oral delayed release tablet (2 sources) Start: 08-01-2021 Adult Aspirin Regimen 81 mg oral delayed release tablet Dose : 81 mg = 1 tab(s), Oral, qDay, # 90 tab(s), 3 Refill(s), Pharmacy: [facility]/pharmacy #[id number], 182, cm, 08/01/21 13:04:00 EDT, Height Start Date: 08/01/21 Status: Ordered apixaban 5 mg oral tablet (20 sources) Factor Xa Inhibitor Start: 06-28-2017 take 1 tablet by mouth twice daily Apixaban (Eliquis) 5 mg tablet Active 5 mg PO TWICE A DAY August 29, 2021 12:00am blood thinner Comment on above: Take 5 mg by mouth t wice daily. Co-Q10 200 mg oral capsule (7 sources) Start: 10-04-2017 Co-Q10 200 mg oral capsule Dose : 400 mg = 2 cap(s), Oral, Daily, 0 Refill(s) Start Date: 10/04/17 Status: Ordered DME MISCellaneous (7 sources) Start: 07-27-2020 DME MISCellaneous See Instructions, Blood Glucose Meter. 1 time daily. E11.65 DIabetes with hyperglycemia, # 1 EA, 0 Refill(s), Pharmacy: [facility], Controlled diabetes mellitus, 182.9, cm, 07/12/20 10:42:00 EDT, Height, 85.55, kg, 07/12/20 10:42:00 EDT, Dosing Weight Start Date: 07/27/20 Status: Ordered Start: 07-27-2020 DME MISCellane ous See Instructions, Blood Glucose Meter. 1 time daily. E11.65 DIabetes with hyperglycemia, # 1 EA, 0 Refill(s), Pharmacy: [facility], Controlled diabetes mellitus, 182.9, cm, 07/12/20 10:42:00 EDT, Height, 85.55, kg, 07/12/20 10:42:00 EDT, Dosing W... Start Date: 07/27/20 Status: Ordered empagliflozin 25 mg oral tablet (19 sources) Sodium-Glucose Cotransporter 2 Inhibitor Start: 10-23-2024 take 1 tablet by mouth once daily in the morning Empagliflozin (Jardiance) 25 mg tablet Active 25 mg PO EVERY MORNING October 23, 2024 12:00am Start: 09-26-2024 take 1 tablet by desiree th once daily at breakfast empagliflozin (JARDIANCE) 25 mg tablet Take 1 tablet by mouth daily with breakfast. 90 tablet 1 09/26/2024 Active Start: 06-19-2024 End: 06-19-2025 take 1 tablet by mouth once daily at breakfast empagliflozin (JARDIANCE) 10 mg tablet Take 1 tablet by mouth daily with breakfast. 90 tablet 3 06/19/2024 09/26/2024 Discontinued Start: 12-15-2021 Jardiance 10 m g oral tablet Dose : 10 mg = 1 tab(s), Oral, qAM, # 30 tab(s), 6 Refill(s), other reason (Rx) Start Date: 12/15/21 Status: Ordered metFORMIN hydrochloride 1000 mg / SITagliptin 50 mg oral tablet (20 sources) Biguanide, Dipeptidyl Peptidase 4 Inhibitor Start: 12-21-2023 End: 12-21-2023 SITagliptin-metFORMIN (JANUMET) 50-1,000 mg per tablet Take 1 tablet in the morning and 1/2 tablet in the evening. 45 tablet 2 12/21/2023 Active Start: 09-18-2023 Sitagliptin Ph os-Metformin (Janumet) 50-1,000 mg tablet Active 1 {tbl} PO daily September 18, 2023 12:00am Start: 08-29-2021 End: 09-18-2023 Sitagliptin Phos-Metformin ( Janumet Xr) 50-1,000 mg tablet, ER multiphase 24 hr Discontinued 0.5 {tbl} PO TWICE A DAY August 29, 2021 12:00am September 18, 2023 11:33am diabetes Start: 03-27-2016 End: 12-21-2023 take 0.5 tablet by mouth twice daily SITagliptin-metFORMIN (JANUMET) 50-1,000 mg per tablet Take 0.5 tablets by mouth twice daily. 03/27/2016 12/21/2023 Discontinued (Adjust Sig - Block E-Cancel) Comment on above: Take 0.5 tablets by mouth twice daily. nitroglycerin 0.4 mg sublingual tablet (7 sources) Nitrate Vasodilator Start: 08-01-2021 Nitrostat 0.4 mg sublingual tablet Dose : 0.4 mg = 1 tab(s), Sublingual, q5min, PRN for chest pain, # 100 tab(s), 3 Refill(s), Pharmacy: [facility]/pharmacy #[id number], 182, cm, 08/01/21 13:04:00 EDT, Height Start Date: 08/01/21 Status: Ordered Start: 10-04-2017 Nitrostat 0.4 mg sublingual tablet Dose : 0.4 mg = 1 tab(s), Sublingual, q5min, PRN for chest pain, 0 Refill(s) Start Date: 10/04/17 Status: Ordered OTC PRODUCT (20 sources) OTC PRODUCT 1,00 0 mg twice daily. Tumeric complex Active OTC PRODUCT 1,00 0 mg twice daily. Tumeric complex 0 Active Comment on above: 1,000 mg twice daily . Tumeric complex pantoprazole 40 mg delayed release oral tablet (20 sources) Proton Pump Inhibitor Start: 0 End: 4 take 1 tablet by mouth once daily Pantoprazole 40 mg tablet,delayed release (DR/EC) Active 40 mg PO DAILY August 29, 2021 12:00am reflux Comment on above: Take 1 tablet by desiree th once daily. rosuvastatin calcium 5 mg oral tablet (20 sources) HMG-CoA Reductase Inhibitor Start: 3 take 1 tablet by mouth once daily Rosuvastatin 5 mg tablet Active 5 mg PO daily September 18, 2023 12:00am Start: 06-23-2017 End: 12-13-2021 take 1 tablet by mouth once daily Rosuvastatin 5 mg tablet Discontinued 5 mg PO DAILY August 29, 2021 12:00am December 13, 2021 9:50am Comment on above: Take 5 mg by mouth o nce daily. sotalol hydrochloride 120 mg oral tablet (20 sources) Antiarrhythmic Start: 3 End: 4 take 1 tablet by mouth twice daily Sotalol 120 mg tablet Active 120 mg PO TWICE A DAY 180 September 18, 2023 11:54am Start: 08-29-2021 End: 02-12-2023 Sotalol 80 mg tablet Discont inued 120 mg PO TWICE A DAY 270 February 20, 2022 12:57pm February 12, 2023 9:23am Start: 08-29-2021 End: 02-20-2022 take 120 mg by mouth twice daily Sotalol Discontinued 120 MG PO TWICE A DAY 270 December 13, 2021 9:57am February 20, 2022 12:57pm Start: 02-28-2021 take 5.5 tablets by mouth twice daily sotalol 80 mg oral tablet See Instructions, TAKE 1&1/2 TABLETS BY MOUTH TWICE DAILY, # 270 tab(s), 3 Refill(s), Pharmacy: [facility]/pharmacy #[id number], 180, cm, 11/22/20 15:23:00 EDT, Height, kg, 11/22/20 15:23:00 EDT, Dosing Weight Start Date: 02/28/21 Status: Ordered Start: 06-12-2019 take 1 tablet by desiree th twice daily sotalol (BETAPACE) 80 mg tablet Take 1 1/2 tablets by mouth twice daily. 06/12/2019 Active Comment on above: Take 1 1/2 tablets b y mouth twice daily. sucralfate 1000 mg oral tablet (9 sources) Aluminum Complex Start: 10-05-2022 take 1 tablet by mouth four times daily sucralfate 1 g oral tablet TAKE 1 TABLET BY MOUTH 4 TIMES A DAY Start Date: 10/05/22 Status: Ordered Start: 08-04-2022 End: 12-22-2022 take 1 tablet by mouth four times daily sucralfate (CARAFATE) 1 gram tablet Take 1 tablet by mouth four times daily. 100 tablet 2 08/04/2022 12/22/2022 Discontinued Comment on above: Take 1 tablet by desiree th four times daily. Turmeric extract (3 sources) Start: 12-13-2023 turmeric Active PO December 13, 2023 12:00am ubidecarenone 400 mg oral capsule (5 sources) Start: 08-29-2021 Coenzyme Q10 (Co Q-10) 400 mg capsule Active 400 mg PO DAILY August 29, 2021 12:00am supplement UBIDECARENONE (COQ-10 ORAL) (20 sources) Start: 12-26-2016 take 400 mg by mouth once daily UBIDECARENONE (COQ-10 ORAL) Take 400 mg by mouth once daily. 12/26/2016 Active Start: 12-26-2016 take 400 mg by mouth once daily UBIDECARENONE (COQ-10 ORAL) Take 400 mg by mouth once daily. 0 12/26/2016 Active Comment on above: Take 400 mg by mouth once daily. Vitamin B Complex (2 sources) Start: 08-29-2021 take 1 tablet by mouth once daily Vitamin B Complex Active 1 TABLET PO DAILY August 29, 2021 12:00am Vitamin B Complex 100 (6 sources) Start: 06-28-2017 take 1 tablet by mouth once daily Vitamin B Complex 100 Dose = 1 tab(s), Oral, qDay, 0 Refill(s) Start Date: 06/28/17 Status: Ordered Vitamin B Complex tablet (3 sources) Start: 08-29-2021 Vitamin B Complex tablet Active 1 {tbl} PO DAILY August 29, 2021 12:00am vitamin Start: 08-29-2021 Vitamin B Comp brigida tablet Active 1 {tbl} PO DAILY August 29, 2021 12:00am VITAMIN B COMPLEX-100 ORAL (20 sources) take 1 tablet by desiree th once daily VITAMIN B COMPLEX-100 ORAL Take 1 tablet by mouth once daily. Active take 1 tablet by mouth once dennise y VITAMIN B COMPLEX-100 ORAL Take 1 tablet by mouth once daily. 0 Active Comment on above: Take 1 tablet by desiree th once daily. vitamin b12 1 mg oral tablet (20 sources) Vitamin B12 Start: 08-29-2021 take 1 tablet by mouth once daily Cyanocobalamin (Vitamin B-12) 1,000 mcg tablet Active 1000 ug PO DAILY August 29, 2021 12:00am vitamin Comment on above: Take 1,000 mcg by mo uth once daily. Vitamin B12 1000 mcg oral tablet (7 sources) Start: 06-28-2017 Vitamin B12 1000 mcg oral tablet Dose : 1,000 mcg = 1 tab(s), Oral, qDay, 0 Refill(s) Start Date: 06/28/17 Status: Ordered Vitamin D3 1000 intl units oral capsule (2 sources) Start: 06-28-2017 Vitamin D3 1000 intl units oral capsule Dose : 1,000 International_Unit = 1 cap(s), Oral, BID, 0 Refill(s) Start Date: 06/28/17 Status: Ordered Completed/Discontinued Medications Medication Drug Class(es) Dates Sig (Normalized) Sig (Original) carvedilol 3.125 mg oral tablet (20 sources) alpha-Adrenergic Nacho, beta-Adrenergic Nacho Start: 08-29-2021 End: 12-13-2021 take 1 tablet by mouth twice daily at mealtime Carvedilol 3.125 mg tablet Discontinued 3.125 mg PO TWICE A DAY August 29, 2021 12:00am December 13, 2021 9:47am must administer with a meal/food Start: 08-04-2021 carvedilol 3.1 25 mg oral tablet Dose : 3.125 mg = 1 tab(s), Oral, BID, TAKE 1 TABLET TWICE A DAY, # 180 tab(s), 3 Refill(s), Pharmacy: [facility]/pharmacy #[id number], 182, cm, 08/01/21 13:04:00 EDT, Height, kg, 08/01/21 13:04:00 EDT, Dosing Weight Start Date: 08/04/21 Status: Ordered Start: 08-18-2020 carvedilol 3.1 25 mg oral tablet Dose : 3.125 mg = 1 tab(s), Oral, BID, TAKE 1 TABLET TWICE A DAY, # 180 tab(s), 3 Refill(s), Pharmacy: [facility]/pharmacy #[id number], 182.9, cm, 07/12/20 10:42:00 EDT, Height, kg, 07/12/20 10:42:00 EDT, Dosing Weight Start Date: 08/18/20 Status: Ordered Comment on above: Take 3.125 mg by desiree th twice daily. clopidogrel 75 mg oral tablet (20 sources) [id number] Platelet Inhibitor Start: 1 End: 4 take 1 tablet by mouth once daily Clopidogrel 75 mg tablet Discontinued 75 mg PO DAILY 90 3 December 14, 2022 2:26pm February 11, 2024 12:25pm Comment on above: Take 75 mg by mouth once daily. ferrous sulfate 325 mg oral tablet (20 sources) Start: 3 End: 4 take 1 tablet by mouth every other day Ferrous Sulfate 325 mg (65 mg iron) tablet Discontinued 325 mg PO every other day December 14, 2022 12:00am December 13, 2023 11:36am Start: 10-05-2022 take 1 tablet by desiree once daily Feosol 200 mg (65 mg elemental iron) oral tablet mg = tab(s), Oral, qDay, 0 Refill(s) Start Date: 10/05/22 Status: Ordered Start: 08-07-2022 End: 12-14-2022 ferrous sulfate Discontinued 1 {tbl} August 07, 2022 12:00am December 14, 2022 1:52pm supplement Start: 08-07-2022 End: 12-14-2022 ferrous sulfate Discontinued 1 {tbl} August 07, 2022 12:00am December 14, 2022 1:52pm Start: 08-07-2022 ferrous sulfat e Active 1 TABLET August 07, 2022 12:00am Comment on above: Take 325 mg by mouth . Take 325 mg by mouth every other day. glimepiride 1 mg oral tablet (20 sources) Sulfonylurea Start: End: take 0.5 mg by mouth once daily Glimepiride Discontinued 0.5 MG PO DAILY December 13, 2021 9:48am July 06, 2022 2:36pm Start: 08-29-2021 End: 12-13-2021 take 0.5 mg by mouth twice daily Glimepiride Discontinued 0.5 MG PO TWICE A DAY August 29, 2021 12:00am December 13, 2021 9:52am Start: 06-16-2021 End: 07-06-2022 take 0.5 mg by mouth once daily Glimepiride 1 mg tablet Discontinued 0.5 mg PO DAILY December 13, 2021 9:48am July 06, 2022 2:36pm Start: 12-09-2020 End: 12-13-2021 take 0.5 mg by mouth twice daily Glimepiride 1 mg tablet Discontinued 0.5 mg PO TWICE A DAY August 29, 2021 12:00am December 13, 2021 9:52am Comment on above: Take 0.5 mg by mouth twice daily with meals. Take 0.5 mg by mouth once daily. ibrutinib 140 mg oral capsule (20 sources) Kinase Inhibitor Start: 0 End: 3 take 1 capsule by mouth once daily Ibrutinib (Imbruvica) 140 mg capsule Discontinued 140 mg PO DAILY August 29, 2021 12:00am December 14, 2022 1:53pm Comment on above: TAKE 1 CAPSULE (140M G) BY MOUTH ONCE DAILY. with a glass of water Take 1 capsule (140m g) by mouth once daily with a glass of water. losartan potassium 50 mg oral tablet (20 sources) Angiotensin 2 Receptor Nacho Start: 3 End: 4 take 1 tablet by mouth once daily Losartan 50 mg tablet Discontinued 50 mg PO DAILY 30 September 20, 2022 1:56pm July 27, 2023 8:05am Comment on above: Take 50 mg by mouth once daily. Multivitamin preparation (6 sources) End: 2 multivitamin (MULTIPLE VITAMINS ORAL) Take by mouth. 3 gummies once daily 0 07/20/2021 Discontinued multivitamin (MU LTIPLE VITAMINS ORAL) Take by mouth. 3 gummies once daily 0 Active Comment on above: Take by mouth. 3 gum mies once daily sacubitril 24 mg / valsartan 26 mg oral tablet (20 sources) Angiotensin 2 Receptor Nacho Start: 2 End: 3 take 1 tablet by mouth twice daily Sacubitril-Valsartan (Entresto) 24-26 mg tablet Discontinued 0 .ROUTE .COMPLEX 180 3 August 23, 2022 1:43pm August 28, 2022 4:59pm TAKE 1 TABLET BY MOUTH TWICE A DAY Comment on above: Take by mouth twice daily. Problems Active Problems Problem Classification Problem Date Documented Da te Episodic/Chronic Acute cerebrovascular disease (5 sources) Cerebrovascular accident; Translations: [Cerebral infarction, unspecified] Onset: 5 07-10-2023 Chronic Cardiac dysrhythmias (20 sources) Atrial fibrillation; Translations: [Atrial tachycardia] Onset: 9 07-03-2019 Chronic Comment on above: AF/AT w RVR and ICD Shock. risk per SCD-HeFT Chronic kidney disease (20 sources) Chronic kidney disease stage 3; Translations: [Stage 3 chronic kidney disease] Onset: 0 12-13-2020 Chronic Coagulation and hemorrhagic disorders (20 sources) Platelet count below reference range; Translations: [Thrombocytopenia, unspecified] Onset: 3 Chronic Conduction disorders (20 sources) Cardiac defibrillator in situ; Translations: [Automatic implantable cardiac defibrillator in situ] Onset: 8 07-06-2020 Chronic Comment on above: Initially 2010, gen change 2017 [employer] Congestive heart failure; nonhypertensive (20 sources) Acute combined systolic and diastolic heart failure; Translations: [Congestive heart failure] Onset: 3 05-21-2019 Chronic Coronary atherosclerosis and other heart disease (20 sources) Coronary arteriosclerosis; Translations: [Generalized ischemic myocardial dysfunction] Onset: 9 06-28-2017 Chronic Comment on above: 8 STENTS infarct CM, stage C, functional class II, QRS 110ms LVEF 35% [2010] LVEF 35% 10/2016 Echocardiogram (SANDRITA) 11/02/2017 EF 30-35% with mild dilated LA measuring 3.8 cm. Moderate diffuse hypokinesis, moderately reduced systolic function. 04/06/2010: PCI with Promus stent RCA J 03/28/2010: PCI with restenting of the circumflex artery, Promus stents to the mid and ostial circumflex JP 04/28/2002: PCI with Promus stents x2 circumflex [facility] 09/10/1997 JACOBSON-LAD and sequentially to the diagonal Dr. Hernandez Coronary atherosclerosis and other heart disease (4 sources) Presence of aortocoronary bypass graft; Translations: [Aortocoronary bypass status] Onset: 8 07-06-2022 Episodic Deficiency and other anemia (20 sources) Iron deficiency anemia due to blood loss; Translations: [Iron deficiency anemia secondary to blood loss (chronic)] Onset: 9 12-04-2018 Chronic Deficiency and other anemia (20 sources) Anemia; Translations: [Anemia, unspecified] Onset: 3 Episodic Deficiency and other anemia (1 source) Iron deficiency anemia; Translations: [Iron deficiency anemia, unspecified] Episodic Deficiency and other anemia (2 sources) Anemia, unspecified; Translations: [Anemia, unspecified] 08-07-2022 Episodic Diabetes mellitus with complications (20 sources) Type 2 diabetes mellitus; Translations: [Type 2 diabetes mellitus with diabetic chronic kidney disease] Onset: 9 06-12-2019 Chronic Diabetes mellitus without complication (20 sources) Diabetes mellitus; Translations: [Type 2 diabetes mellitus] Onset: 5 05-21-2019 Chronic Diabetes mellitus without complication (1 source) Diabetes mellitus without complication; Translations: [Type 2 diabetes mellitus with stage 3 chronic kidney disease, without long-term current use of insulin, unspecified whether stage 3a or 3b CKD (HCC)] Onset: 0 Disorders of lipid metabolism (20 sources) Dyslipidemia; Translations: [Hypercholesterolemia] Onset: 9 05-21-2019 Chronic Diverticulosis and diverticulitis (20 sources) Gastrointestinal hemorrhage; Translations: [Diverticulosis of intestine, part unspecified, without perforation or abscess with bleeding] Onset: 3 Chronic Esophageal disorders (20 sources) Gastroesophageal reflux disease; Translations: [Gastroesophageal reflux disease without esophagitis] Onset: 9 06-28-2017 Chronic Essential hypertension (20 sources) Hypertensive disorder; Translations: [Essential hypertension] Onset: 3 07-03-2019 Chronic Gastritis and duodenitis (1 source) Chronic superficial gastritis; Translations: [Chronic superficial gastritis without bleeding] Chronic Gastrointestinal hemorrhage (7 sources) Gastrointestinal hemorrhage; Translations: [Gastrointestinal hemorrhage, unspecified] 08-07-2022 Episodic Leukemias (20 sources) B-cell chronic lymphocytic leukemia; Translations: [Chronic lymphoid leukemia, disease] Onset: 1 Resolved: 5 06-28-2017 Chronic Comment on above: Ibrutinib. Malaise and fatigue (20 sources) Asthenia; Translations: [Weakness] Onset: 4 Resolved: 5 06-17-2023 Episodic Osteoarthritis (20 sources) Arthritis; Translations: [Unspecified osteoarthritis, unspecified site] Onset: 3 06-28-2017 Chronic Other aftercare (1 source) Drug therapy finding; Translations: [[facility] (current) use of anticoagulants] Episodic Other ear and sense organ disorders (20 sources) Hearing loss; Translations: [Unspecified hearing loss, unspecified ear] Onset: 3 06-28-2017 Chronic Other ear and sense organ disorders (20 sources) Sensorineural hearing loss, bilateral; Translations: [Sensorineural hearing loss, bilateral] Onset: 3 12-22-2022 Chronic Other gastrointestinal disorders (1 source) Intestinal malabsorption, unspecified; Translations: [Iron malabsorption (HCC)] Onset: 5 Chronic Other injuries and conditions due to external causes (1 source) History of falling; Translations: [At risk for falls] Onset: 5 Episodic Other nervous system disorders (2 sources) Other abnormalities of gait and mobility; Translations: [Impairment of balance] Onset: 5 Episodic Other non-traumatic joint disorders (2 sources) Pain in right knee; Translations: [Pain in joint, lower leg] Episodic Other screening for suspected conditions (not mental disorders or infectious disease) (20 sources) Raised TSH level; Translations: [Blood chemistry abnormal] Onset: 3 07-03-2019 Episodic Peripheral and visceral atherosclerosis (20 sources) Peripheral vascular disease, unspecified; Translations: [Peripheral vascular disease, unspecified] Onset: 1 07-28-2020 Chronic Residual codes; unclassified (1 source) Edema; Translations: [Edema, unspecified] Episodic Residual codes; unclassified (11 sources) Amnesia; Translations: [Other amnesia] 06-17-2024 Episodic Residual codes; unclassified (1 source) Other amnesia; Translations: [Memory loss] Onset: 5 Episodic Screening and history of mental health and substance abuse codes (2 sources) Patient encounter status; Translations: [Encounter for screening for depression] 06-17-2024 Episodic Septicemia (except in labor) (7 sources) Sepsis 10-04-2017 Episodic Unclassified (1 source) Unknown / UNK(Unknown) Onset: 7 Unclassified (7 sources) Hearing aid, device (physical object) 06-28-2017 Comment on above: 2 Unclassified (7 sources) History of repair of hip joint 08-10-2017 Unclassified (1 source) PAD (peripheral artery disease) 07-08-2024 Past or Other Problems Problem Classification Problem Date Documented Da te Episodic/Chronic Acute myocardial infarction (20 sources) Myocardial infarction; Translations: [Acute myocardial infarction, unspecified] Onset: 12-22-2022 Resolved: 06-17-2024 06-28-2017 Chronic Comment on above: FOUR Cardiac dysrhythmias (1 source) Cardiac dysrhythmias Onset: 09-22-2016 Diseases of white blood cells (20 sources) Leukocytosis; Translations: [Lymphocytosis] Onset: 04-18-2011 Resolved: 09-25-2016 10-04-2017 Chronic Immunizations and screening for infectious disease (20 sources) Vaccination needed; Translations: [Encounter for immunization] Onset: 12-22-2022 Resolved: 12-22-2022 Episodic Leukemias (20 sources) History of chronic lymphocytic leukemia; Translations: [Personal history of leukemia] Onset: 12-22-2022 12-22-2022 Episodic Nutritional deficiencies (20 sources) Vitamin D deficiency; Translations: [Vitamin D deficiency, unspecified] Onset: 12-22-2022 Resolved: 12-22-2022 07-03-2019 Chronic Other aftercare (20 sources) Long-term current use of anticoagulant; Translations: [supervisor intermediates (current) use of anticoagulants] Onset: 12-22-2022 12-22-2022 Episodic Other aftercare (2 sources) supervisor intermediates (current) use of anticoagulants; Translations: [supervisor intermediates (current) use of anticoagulants] Onset: 12-22-2022 Episodic Other circulatory disease (20 sources) Anterior cerebral circulation infarction; Translations: [Personal history of transient ischemic attack (TIA), and cerebral infarction without residual deficits] Onset: 06-17-2023 Resolved: 08-15-2023 06-15-2023 Episodic Other connective tissue disease (20 sources) Musculoskeletal finding; Translations: [Other symptoms and signs involving the musculoskeletal system] Onset: 06-17-2023 Resolved: 08-15-2023 06-17-2023 Episodic Other connective tissue disease (19 sources) Other symptoms and signs involving the musculoskeletal system; Translations: [Other musculoskeletal symptoms referable to limbs] Onset: 07-16-2024 Resolved: 09-16-2024 07-16-2024 Episodic Other gastrointestinal disorders (20 sources) Malabsorption - iron; Translations: [Intestinal malabsorption, unspecified] Onset: 12-04-2018 Resolved: 06-17-2024 12-04-2018 Chronic Other injuries and conditions due to external causes (18 sources) At risk for falls ; Translations: [History of falling] Onset: 07-16-2024 Resolved: 09-16-2024 07-16-2024 Episodic Other nervous system disorders (20 sources) Impairment of balance; Translations: [Other abnormalities of gait and mobility] Onset: 06-17-2023 Resolved: 09-16-2024 06-17-2023 Episodic Other nervous system disorders (20 sources) Ataxia; Translations: [Ataxia, unspecified] Onset: 07-16-2024 Resolved: 09-16-2024 06-17-2024 Episodic Other nervous system disorders (2 sources) Ataxia, unspecified; Translations: [Ataxia] Onset: 07-02-2024 Episodic Other non-traumatic joint disorders (20 sources) Hip pain; Translations: [Pain in unspecified hip] Onset: 12-22-2022 Resolved: 06-17-2024 06-28-2017 Episodic Other nutritional; endocrine; and metabolic disorders (20 sources) Underweight; Translations: [Underweight] Onset: 12-22-2022 Resolved: 06-17-2024 10-04-2017 Episodic Pneumonia (except that caused by tuberculosis or sexually transmitted disease) (20 sources) Pneumonia; Translations: [Pneumonia, unspecified organism] Onset: 12-22-2022 Resolved: 06-17-2024 10-04-2017 Episodic Poisoning by other medications and drugs (20 sources) Poisoning by vitamin D; Translations: [Poisoning by vitamin] Onset: 12-22-2022 Resolved: 12-22-2022 06-17-2020 Episodic Residual codes; unclassified (20 sources) History of repair of hip joint; Translations: [Other specified postprocedural states] Onset: 12-22-2022 12-22-2022 Episodic Results Test Name Value Interpretation Reference Range Facility [facility] 10-02-2024 [facility] ---- RONNIE LEE ([id number]) 1940 Date Time Provider Department 10/02/24 YA MORELPHIEN During your visit today, we recorded the following information about you: Mariam Garcia LPN 10/02/2024 3:01 PM Signed Patient Marisol returned call for lab results, due to very hard of hearing. No results note for nurse to go over with the patient . Please advise Latest Ref Rng 09/23/2024 WBC 3.70 - 11.00 k/uL 14.65 (H) RBC 4.20 - 6.00 m/uL 5.16 Hemoglobin 13.0 - 17.0 g/dL 14.4 Hematocrit 39.0 - 51.0 % 43.2 MCV 80.0 - 100.0 fL 83.7 MCH 26.0 - 34.0 pg 27.9 MCHC 30.5 - 36.0 g/dL 33.3 RDW-CV 11.5 - 15.0 % 13.5 Platelet Count 150 - 400 k/uL 180 MPV 9.0 - 12.7 fL 11.4 NRBC /100 WBC 0.0 Absolute nRBC <0.01 k/uL <0.01 Neut% % 50.0 Abs Neut (ANC) 1.45 - 7.50 k/uL 7.33 Lymph% % 44.8 Abs Lymph 1.00 - 4.00 k/uL 6.56 (H) Lander% % 5.2 Abs Lander <0.87 k/uL 0.76 Eosin% % 0.0 Abs Eosin <0.46 k/uL 0.00 Baso% % 0.0 Abs Baso <0.11 k/uL 0.00 Platelet Estimate Adequate Red Cell Morph Reviewed: see results of individual morphologies Ovalocytes Few DTYPE Manual Hemoglobin A1C 4.3 - 5.6 % 10.7 (H) Estimated Average Glucose mg/dL 260 Legend: (H) High Ya Morel, EUFEMIA.[employer]ATING [employer]ENDING SUPERVISOR 10/07/2024 1:26 PM Signed There was a result note in on 09/26. Brian Chanel, MAITE 10/07/2024 1:32 PM Signed phoned for results and given provider's message below with verbalized understanding. agreeable. Allergies As of Date: 10/02/2024 Noted Allergy Reaction AVANDAMET (ROSIGLITAZONE-METF ORMI*04/18/2011 5 - Intolerance Comments: refuses IODINE 04/18/2011 10 - Anaphylaxis OXYCODONE 07/19/2017 8 - GI Upset 11 - Vomiting Comments: Dizziness PROMETHAZINE-CODEIN E 04/18/2011 5 - Intolerance Comments: Low BP, vomited Date Reviewed: 09/23/2024 Reviewed by: Escobar Thomas LPN - Fully Assessed Reason for Visit: Results, Lab [1201] Prescriptions as of 10/07/2024 - empagliflozin (JARDIANCE) 25 mg tablet Take 1 tablet by mouth daily with breakfast. - SITagliptin-metFORM IN (JANUMET) 50-1,000 mg per tablet Take 1 tablet in the morning and 1/2 tablet in the evening. - pantoprazole DR (PROTONIX) 40 mg tablet Take 1 tablet by mouth once daily. - losartan (COZAAR) 50 mg tablet Take 50 mg by mouth once daily. - ferrous sulfate 325 mg (65 mg iron) tablet Take 325 mg by mouth every other day. - rosuvastatin (CRESTOR) 5 mg tablet Take 5 mg by mouth once daily. - OTC PRODUCT 1,000 mg twice daily. Tumeric complex - Lancets lancets Test blood sugar(s) 1 times daily. Dx: Type 2 DM - Controlled E11.9 Insulin: No - blood sugar diagnostic (BLOOD GLUCOSE TEST) test strip Test blood sugar(s) 1 times daily. Dx: Type 2 DM - Controlled E11.9 Insulin: No - sotalol (BETAPACE) 80 mg tablet Take 1 1/2 tablets by mouth twice daily. - apixaban (ELIQUIS) 5 mg tab(s) Take 5 mg by mouth twice daily. - cyanocobalamin (VITAMIN B-12) 1,000 mcg tab Take 1,000 mcg by mouth once daily. - VITAMIN B COMPLEX-100 ORAL Take 1 tablet by mouth once daily. - clopidogrel (PLAVIX) 75 mg tablet Take 75 mg by mouth once daily. - UBIDECARENONE (COQ-10 ORAL) Take 400 mg by mouth once daily. 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] 12/04/2018 06/17/2024 PAD (peripheral artery disease) (HCC) [I73.9] 07/28/2020 Stage 3 chronic kidney disease (HCC) [N18.30] 12/13/2020 ICD (implantable cardioverter-defibr illator) in*12/12/2021 Ischemic cardiomyopathy [I25.5] 12/12/2021 Platelets decreased (HCC) [D69.6] 07/04/2022 Acute combined systolic and diastolic heart jeramy*07/04/2022 Primary hypertension [I10] 07/19/2022 Gastrointestinal hemorrhage associated with int*08/15/2022 Anemia [D64.9] 09/04/2022 Diagnosed: 12/22/2022 Arthritis [M19.90] 12/22/2022 Diagnosed: 12/22/2022 Congestive heart failure (HCC) [I50.9] 12/22/2022 Diagnosed: 12/22/2022 Dyslipidemia [E78.5] 08/31/2021 Diagnosed: 12/22/2022 Encounter for immunization [Z23] 12/22/2022 12/22/2022 Diagnosed: 12/22/2022 Hearing loss [H91.90] 12/22/2022 Diagnosed: 12/22/2022 High thyroid stimulating hormone (TSH) level [R*12/22/2022 Diagnosed: 12/22/2022 Hip pain [M25.559] 12/22/2022 06/17/2024 Diagnosed: 12/22/2022 History of chronic lymphocytic leukemia [Z85.6] 12/22/2022 [place] (more content not included)... Normal [facility] CBC W Auto Differential pane l (Bld)on 09-23-2024 Basophils (Bld) [#/Vol] 0.00 10*3/uL Normal <0.11 [facility] Comment on above: Order Comment: Speci men Type: BLOOD SPECIMEN Ordering Facility: [facility] Address: [address] [place] [address] Performed By: #### 5 5454-3 #### [facility] CLIA [id number] [address] [place] [address] [place] Basophils/100 WBC (Bld) 0.0 % Normal [facility] Comment on above: Order Comment: Speci men Type: BLOOD SPECIMEN Ordering Facility: [facility] Address: [address] [place] [address] Performed By: #### 5 5454-3 #### [facility] CLIA [id number] [address] [place] [address] [place] Differential cell count method Nom (Bld) Manual Normal [facility] Comment on above: Order Comment: Speci men Type: BLOOD SPECIMEN Ordering Facility: [facility] Address: [address] [place] [address] Performed By: #### 5 5454-3 #### [facility] CLIA [id number] [address] [place] [address] [place] Eosinophils (Bld) [#/Vol] 0.00 10*3/uL Normal <0.46 [facility] Comment on above: Order Comment: Speci men Type: BLOOD SPECIMEN Ordering Facility: [facility] Address: [address] [place] [address] Performed By: #### 5 5454-3 #### [facility] CLIA [id number] [address] [place] [address] [place] Eosinophils/100 WBC (Bld) 0.0 % Normal [facility] Comment on above: Order Comment: Speci men Type: BLOOD SPECIMEN Ordering Facility: [facility] Address: [address] [place] [address] Performed By: #### 5 5454-3 #### [facility] CLIA [id number] [address] [place] [address] [place] Erythrocyte distribution width (RBC) [Ratio] 13.5 % Normal 11.5-15.0 [facility] Comment on above: Order Comment: Speci men Type: BLOOD SPECIMEN Ordering Facility: [facility] Address: [address] [place] [address] Performed By: #### 5 5454-3 #### [facility] CLIA [id number] [address] [place] [address] [place] Hematocrit (Bld) [Volume fraction] 43.2 % Normal 39.0-51.0 [facility] Comment on above: Order Comment: Speci men Type: BLOOD SPECIMEN Ordering Facility: [facility] Address: [address] [place] [address] Performed By: #### 5 5454-3 #### [facility] CLIA [id number] [address] [place] [address] [place] Hemoglobin (Bld) [Mass/Vol] 14.4 g/dL Normal 13.0-17.0 [facility] Comment on above: Order Comment: Speci men Type: BLOOD SPECIMEN Ordering Facility: [facility] Address: [address] [place] [address] Performed By: #### 5 5454-3 #### [facility] CLIA [id number] [address] [place] [address] [place] Lymphocytes (Bld) [#/Vol] 6.56 10*3/uL High 1.00-4.00 [facility] Comment on above: Order Comment: Speci men Type: BLOOD SPECIMEN Ordering Facility: [facility] Address: [address] [place] [address] Performed By: #### 5 5454-3 #### [facility] CLIA [id number] [address] [place] [address] [place] Lymphocytes/100 WBC (Bld) 44.8 % Normal [facility] Comment on above: Order Comment: Speci men Type: BLOOD SPECIMEN Ordering Facility: [facility] Address: [address] [place] [address] Performed By: #### 5 5454-3 #### [facility] CLIA [id number] [address] [place] [address] [place] MCH (RBC) [Entitic mass] 27.9 pg Normal 26.0-34.0 [facility] Comment on above: Order Comment: Speci men Type: BLOOD SPECIMEN Ordering Facility: [facility] Address: [address] [place] [address] Performed By: #### 5 5454-3 #### [facility] CLIA [id number] [address] [place] [address] [place] MCHC (RBC) [Mass/Vol] 33.3 g/dL Normal 30.5-36.0 [facility] Comment on above: Order Comment: Speci men Type: BLOOD SPECIMEN Ordering Facility: [facility] Address: [address] [place] [address] Performed By: #### 5 5454-3 #### [facility] CLIA [id number] [address] [place] [address] [place] MCV (RBC) [Entitic vol] 83.7 fL Normal 80.0-100.0 [facility] Comment on above: Order Comment: Speci men Type: BLOOD SPECIMEN Ordering Facility: [facility] Address: [address] [place] [address] Performed By: #### 5 5454-3 #### [facility] CLIA [id number] [address] [place] [address] [place] Monocytes (Bld) [#/Vol] 0.76 10*3/uL Normal <0.87 [facility] Comment on above: Order Comment: Speci men Type: BLOOD SPECIMEN Ordering Facility: [facility] Address: [address] [place] [address] Performed By: #### 5 5454-3 #### [facility] CLIA [id number] [address] [place] [address] [place] Monocytes/100 WBC (Bld) 5.2 % Normal [facility] Comment on above: Order Comment: Speci men Type: BLOOD SPECIMEN Ordering Facility: [facility] Address: [address] [place] [address] Performed By: #### 5 5454-3 #### [facility] CLIA [id number] [address] [place] [address] [place] Neutrophils (Bld) [#/Vol] 7.33 10*3/uL Normal 1.45-7.50 [facility] Comment on above: Order Comment: Speci men Type: BLOOD SPECIMEN Ordering Facility: [facility] Address: [address] [place] [address] Performed By: #### 5 5454-3 #### [facility] CLIA [id number] [address] [place] [address] [place] Neutrophils/100 WBC (Bld) 50.0 % Normal [facility] Comment on above: Order Comment: Speci men Type: BLOOD SPECIMEN Ordering Facility: [facility] Address: [address] [place] [address] Performed By: #### 5 5454-3 #### [facility] CLIA [id number] [address] [place] [address] [place] Nucleated RBC (Bld) [#/Vol] 10*3/uL Normal <0.01 [facility] Comment on above: Order Comment: Speci men Type: BLOOD SPECIMEN Ordering Facility: [facility] Address: [address] [place] [address] Performed By: #### 5 5454-3 #### [facility] CLIA [id number] [address] [place] [address] [place] Nucleated RBC/100 WBC (Bld) [Ratio] 0.0 /100 WBC Normal [facility] Comment on above: Order Comment: Speci men Type: BLOOD SPECIMEN Ordering Facility: [facility] Address: [address] [place] [address] Performed By: #### 5 5454-3 #### [facility] CLIA [id number] [address] [place] [address] [place] Ovalocytes LM Ql (Bld) Few Normal Cl [facility] Comment on above: Order Comment: Speci men Type: BLOOD SPECIMEN Ordering Facility: [facility] Address: [address] [place] [address] Performed By: #### 5 5454-3 #### [facility] CLIA [id number] [address] [place] [address] [place] Platelet mean volume (Bld) [Entitic vol] 11.4 fL Normal 9.0-12.7 [facility] Comment on above: Order Comment: Speci men Type: BLOOD SPECIMEN Ordering Facility: [facility] Address: [address] [place] [address] Performed By: #### 5 5454-3 #### [facility] CLIA [id number] [address] [place] [address] [place] Platelets (Bld) [#/Vol] 180 10*3/uL Normal 150-400 [facility] Comment on above: Order Comment: Speci men Type: BLOOD SPECIMEN Ordering Facility: [facility] Address: [address] [place] [address] Performed By: #### 5 5454-3 #### [facility] CLIA [id number] [address] [place] [address] [place] Platelets Estimate (Bld) [#/Vol] Adequate Normal [facility] Comment on above: Order Comment: Speci men Type: BLOOD SPECIMEN Ordering Facility: [facility] Address: [address] [place] [address] Performed By: #### 5 5454-3 #### [facility] CLIA [id number] [address] [place] [address] [place] RBC (Bld) [#/Vol] 5.16 10*6/uL Normal 4.20-6.00 [facility] Comment on above: Order Comment: Speci men Type: BLOOD SPECIMEN Ordering Facility: [facility] Address: [address] [place] [address] Performed By: #### 5 5454-3 #### [facility] CLIA [id number] [address] [place] [address] [place] RED CELL MORPH Reviewed: see results of individual morphologies Normal [facility] Comment on above: Order Comment: Speci men Type: BLOOD SPECIMEN Ordering Facility: [facility] Address: [address] [place] [address] Performed By: #### 5 5454-3 #### [facility] CLIA [id number] [address] [place] [address] [place] WBC (Bld) [#/Vol] 14.65 10*3/uL High 3.70-11.00 [facility] Comment on above: Order Comment: Speci men Type: BLOOD SPECIMEN Ordering Facility: [facility] Address: [address] [place] [address] Performed By: #### 5 5454-3 #### [facility] CLIA [id number] [address] [place] [address] [place] CNOVon 09-23-2024 CNOV Office Visit ([facility]AMP[facility]) ---- RONNIE LEE ([id number]) 1940 M Date Time Provider Department 09/23/24 1:00 PM YA MOREL During your visit today, we recorded the following information about you: Pulse Respiration Blood pressure 85/minute 16/minute 122/72 Ya Morel APRN.CNP 09/23/2024 1:30 PM Signed - Continue taking Jardiance every day as prescribed. - Go to the lab right after your appointment to have a hemoglobin A1c and a complete blood count drawn. Recheck in 6 months. Ya Morel APRN.CNP 09/23/2024 1:41 PM Signed This is a 83 year old male who presents today with: Ed Luigi Lee is an 83-year-old male with a history of diabetes mellitus, presenting for a follow-up visit. HISTORY OF PRESENT ILLNESS: Diabetes Mellitus: - Recently started on Jardiance; Ed reports no issues with the medication. - Not taking Janumet. - Denies symptoms of hypoglycemia. - does not check home sugars. - Not following a specific diet. - Reports normal urination. HTN: - Denies chest pain, palpitations, dyspnea, or peripheral edema. 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 Hyperlipidemia Impacted cerumen TN (myocardial infarction) ([facility]) '93, '98, '03, '04 Pneumonia 03/08/2011 PAST SURGICAL HISTORY Procedure Laterality Date ANGIOPLASTY 02/2004 with stents ARTHRP ACETBLR/PROX FEM PROSTC AGRFT/ALGRFT Right CABG (2) VEIN GRAFTS AND ARTERIAL GRAFT(S 09/09/1997 COLONOSCOPY 07/26/2022 COLONOSCOPY SCREENING 08/09/2022 Dr Du CORONARY ARTERY DILATION 03/12/2010 3 stents EGD 07/26/2022 IMPLANTABLE CARDIOVERTER DEFIBRILLATOR 09/05/2010 duel chamber REMV CATARACT EXTRACAP,INSERT LENS Bilateral ALLERGIES Avandamet [Rosiglitazone-Metf ormin], Iodine, Oxycodone, and Promethazine-Codein e MEDICATIONS Current Outpatient Medications Medication Sig empagliflozin (JARDIANCE) 10 mg tablet Take 1 tablet by mouth daily with breakfast. SITagliptin-metFORM IN (JANUMET) 50-1,000 mg per tablet Take 1 tablet in the morning and 1/2 tablet in the evening. pantoprazole DR (PROTONIX) 40 mg tablet Take 1 tablet by mouth once daily. losartan (COZAAR) 50 mg tablet Take 50 mg by mouth once daily. ferrous sulfate 325 mg (65 mg iron) tablet Take 325 mg by mouth every other day. rosuvastatin (CRESTOR) 5 mg tablet Take 5 mg by mouth once daily. OTC PRODUCT 1,000 mg twice daily. Tumeric complex Lancets lancets Test blood sugar(s) 1 times daily. Dx: Type 2 DM - Controlled E11.9 Insulin: No blood sugar diagnostic (BLOOD GLUCOSE TEST) test strip Test blood sugar(s) 1 times daily. Dx: Type 2 DM - Controlled E11.9 Insulin: No sotalol (BETAPACE) 80 mg tablet Take 1 1/2 tablets by mouth twice daily. apixaban (ELIQUIS) 5 mg tab(s) Take 5 mg by mouth twice daily. cyanocobalamin (VITAMIN B-12) 1,000 mcg tab Take 1,000 mcg by mouth once daily. VITAMIN B COMPLEX-100 ORAL Take 1 tablet by mouth once daily. clopidogrel (PLAVIX) 75 mg tablet Take 75 mg by mouth once daily. UBIDECARENONE (COQ-10 ORAL) Take 400 mg by mouth once daily. No current facility-administer ed medications for this visit. FAMILY HISTORY Problem Relation Age of Onset Heart Father Cancer Mother Tremor Mother Diabetes Sister Diabetes Daughter prediabetic Diabetes Other Diabetes Other Social History Tobacco Use Smoking status: Never Smokeless tobacco: Never Vaping Use Vaping status: Never Used Substance Use Topics Alcohol use: No Drug use: No REVIEW OF SYSTEMS Cardiovascular: (-) chest pain, (-) palpitations Respiratory: (-) shortness of breath EXAM: BP 122/72 Pulse 85 Resp 16 SpO2 97% PHYSICAL EXAM: General Appearance: Well appearing, alert, in no acute distress, well-hydrated, well nourished.. Skin: Skin color, texture, turgor normal, no suspicious rashes or lesions. Head: Normocephalic, no masses, lesions, tenderness or abnormalities. Eyes: Anicteric sclera. Extraocular movements are intact. . Lungs: Lungs clear to auscultation. No wheezing, rhonchi, rales.. Heart: RRR without murmur, gallop, or rubs. No ectopy. Extremities: No deformities, edema, skin discoloration, clubbing or cyanosis. Good capillary refill. . Neurologic: Gait normal. ASSESSMENT/PLAN 1. Type 2 diabetes mellitus without complication, without long-term current use of insulin (HCC) (E11.9) - Currently on Jardiance and Janumet; taking Jardiance daily. - No symptoms of hypoglycemia reported; not monitoring blood glucose levels at home. - Ordered HbA1c to assess glycemic control. - Advised patient to continue current medication regimen. F (more content not included)... Normal [facility] CT BRAIN WO IVCONon 09-24-19 CT BRAIN WO IVCON * * *Final Report* * * DATE OF EXAM: Sep 23 2024 3:20PM [facility] 0504 - CT BRAIN WO IVCON / PROCEDURE REASON: multiple diagnoses * * * * Physician Interpretation * * * * EXAMINATION: CT BRAIN WO IVCON CLINICAL HISTORY: Memory loss. Clinical concern for NPH. TECHNIQUE: Serial axial images without IV contrast were obtained from the vertex to the foramen magnum. MQ: CTBWO_3 CT Radiation dose: Integrated Dose-Length Product (DLP) for this visit = 719 mGy*cm CT Dose Reduction Employed: Automated exposure control(AEC) and iterative recon COMPARISON: 07/02/2024. RESULT: Localizer images: No additional findings. Post-operative change: None. Acute change: No evidence of an acute infarct or other acute parenchymal process. Hemorrhage: No evidence of acute intracranial hemorrhage. ECASS hemorrhagic transformation score: Not Applicable Mass Lesion / Mass Effect: There is no evidence of an intracranial mass or extraaxial fluid collection. No significant mass effect. Chronic change: Scattered patchy foci of low attenuation are present within the supratentorial white matter, a nonspecific finding that most commonly represents mild small vessel disease. 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 Parenchyma: There is moderate predominantly central generalized volume loss. The brain parenchyma is otherwise within normal limits for age. Ventricles: Stable prominence of the lateral and third ventricles with mild enlargement of the fourth ventricle. Paranasal sinuses and skull base: The visualized paranasal sinuses are grossly clear. The skull base and imaged soft tissues are unremarkable. IMPRESSION: No CT evidence of an acute intracranial process. Stable prominence of the ventricular system. Political Geographer: PSCB Transcribe Date/Time: Sep 23 2024 4:24P Dictated by : RADHA WILL MD This examination was interpreted and the report reviewed and electronically signed by: RADHA WILL MD on Sep 23 2024 4:28PM EST [id number] Normal [facility] CT Head WO contraston 2024 IMPRESSION: No CT evidence of an acute intracranial process. Stable prominence of the ventricular system. Political Geographer: PSCKatherine Transcribe Date/Time: Sep 23 2024 4:24P Dictated by : RADHA WILL MD This examination was interpreted and the report reviewed and electronically signed by: RADHA WILL MD on Sep 23 2024 4:28PM EST DIVISION OF RADIOLOGY * * *Final Report* * * DATE OF EXAM: Sep 23 2024 3:20PM [facility] 0504 - CT BRAIN WO IVCON / PROCEDURE REASON: multiple diagnoses * * * * Physician Interpretation * * * * EXAMINATION: CT BRAIN WO IVCON CLINICAL HISTORY: Memory loss. Clinical concern for NPH. TECHNIQUE: Serial axial images without IV contrast were obtained from the vertex to the foramen magnum. MQ: CTBWO_3 CT Radiation dose: Integrated Dose-Length Product (DLP) for this visit = 719 mGy*cm CT Dose Reduction Employed: Automated exposure control(AEC) and iterative recon COMPARISON: 07/02/2024. RESULT: Localizer images: No additional findings. Post-operative change: None. Acute change: No evidence of an acute infarct or other acute parenchymal process. Hemorrhage: No evidence of acute intracranial hemorrhage. ECASS hemorrhagic transformation score: Not Applicable Mass Lesion / Mass Effect: There is no evidence of an intracranial mass or extraaxial fluid collection. No significant mass effect. Chronic change: Scattered patchy foci of low attenuation are present within the supratentorial white matter, a nonspecific finding that most commonly represents mild small vessel disease. 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 Parenchyma: There is moderate predominantly central generalized volume loss. The brain parenchyma is otherwise within normal limits for age. Ventricles: Stable prominence of the lateral and third ventricles with mild enlargement of the fourth ventricle. Paranasal sinuses and skull base: The visualized paranasal sinuses are grossly clear. The skull base and imaged soft tissues are unremarkable. DIVISION OF RADIOLOGY Provider, [facility] [place] - 09/23/2024 * * *Final Report* * * DATE OF EXAM: Sep 23 2024 3:20PM [facility] 0504 - CT BRAIN WO IVCON / PROCEDURE REASON: multiple diagnoses * * * * Physician Interpretation * * * * EXAMINATION: CT BRAIN WO IVCON CLINICAL HISTORY: Memory loss. Clinical concern for NPH. TECHNIQUE: Serial axial images without IV contrast were obtained from the vertex to the foramen magnum. MQ: CTBWO_3 CT Radiation dose: Integrated Dose-Length Product (DLP) for this visit = 719 mGy*cm CT Dose Reduction Employed: Automated exposure control(AEC) and iterative recon COMPARISON: 07/02/2024. RESULT: Localizer images: No additional findings. Post-operative change: None. Acute change: No evidence of an acute infarct or other acute parenchymal process. Hemorrhage: No evidence of acute intracranial hemorrhage. ECASS hemorrhagic transformation score: Not Applicable Mass Lesion / Mass Effect: There is no evidence of an intracranial mass or extraaxial fluid collection. No significant mass effect. Chronic change: Scattered patchy foci of low attenuation are present within the supratentorial white matter, a nonspecific finding that most commonly represents mild small vessel disease. 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 Parenchyma: There is moderate predominantly central generalized volume loss. The brain parenchyma is otherwise within normal limits for age. Ventricles: Stable prominence of the lateral and third ventricles with mild enlargement of the fourth ventricle. Paranasal sinuses and skull base: The visualized paranasal sinuses are grossly clear. The skull base and imaged soft tissues are unremarkable. IMPRESSION IMPRESSION: No CT evidence of an acute intracranial process. Stable prominence of the ventricular system. Political Geographer: PSCB Transcribe Date/Time: Sep 23 2024 4:24P Dictated by : RADHA WILL MD This examination was interpreted and the report reviewed and electronically signed by: RADHA WILL MD on Sep 23 2024 4:28PM [facility] Radiology Study observation (narrative) [facility] CT Head WO contrastOrdered B y: [facility] Provider on 09-23-2024 [facility] HbA1c (Bld)on 09-23-2024 Average glucose Estimated from glycated hemoglobin (Bld) [Mass/Vol] 260 mg/dL Normal [facility] Comment on above: Order Comment: Janis kaba Type: BLOOD SPECIMEN Ordering Facility: [facility] Address: [address] [place] [address] Result Comment: eAG: (Estimated average glucose) is a calculated value from HgbA1c and is personal financial representative of the average blood glucose level in the last 2-3 month period. Performed By: #### 5 5454-3 #### [facility] CLIA [id number] [address] [place] [address] [place] HbA1c (Bld) [Mass fraction] 10.7 % High 4.3-5.6 [facility] Comment on above: Order Comment: Janis kaba Type: BLOOD SPECIMEN Ordering Facility: [facility] Address: [address] [place] [address] Result Comment: Amer [place] Diabetes Association guidelines indicate that patients with HgbA1c in the range 5.7-6.4% are at increased risk for development of diabetes, and intervention by lifestyle modification may be beneficial. HgbA1c greater or equal to 6.5% is considered diagnostic of diabetes. Performed By: #### 5 5454-3 #### [facility] CLIA [id number] [address] [place] [address] [place] CNOVon 09-09-2024 CNOV Office Visit (NEURMM) ---- RONNIE LEE ([id number]) 1940 M Date Time Provider Department 09/09/24 1:00 PM JAJA GAONA NEURMM During your visit today, we recorded the following information about you: Pulse Respiration Blood pressure 69/minute 16/minute 134/83 Jaja Gaona MD 09/21/2024 7:30 PM [facility] [place] September 09, 2024 New Patient My final recommendations will be communicated back to the requesting physician by way of shared medical record or letter via [place] mail. Referring physician:Zachary Kennedy [address] [facility] [address] Patient presents with: Consult: Memory Accompanied by Spouse. Referred by Zachary Kennedy [address] [facility] [address]. HISTORY AND PHYSICAL Ed Luigi Lee is an 83-year-old male with a history of diabetes and hearing loss, presenting for evaluation of memory loss. He is accompanied by his , who provides additional history. Ed was referred by Dr. Kennedy for memory loss, which he is unsure if he is experiencing. His reports that memory issues have been present for the past few years. He does not wear his hearing aids consistently, which may contribute to his memory concerns. He is able to perform most activities of daily living independently, such as dressing and eating, but does not cook. His manages the household finances, a role she has always held. He does not report any significant changes in his ability to perform daily tasks. He reports occasional balance issues but has not experienced frequent falls. The last fall occurred four months ago when he tripped and fell forward. He does not endorse urinary incontinence or recent changes in urinary function. He has a history of diabetes, which Ed manages inconsistently. He does not report any seizures and has no family history of seizures. He is right-hand dominant and experiences occasional tremors in his hands, more frequently in the left hand. 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 He is unable to undergo MRI due to the defibrillator. Past Diagnostic Results: - (06/2022) CT Scan of Brain: Ordered by Dr. Kennedy. 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 90 tablet 3 SITagliptin-metFORM IN (JANUMET) 50-1,000 mg per tablet Take 1 tablet in the morning and 1/2 tablet in the evening. [address] (PROTONIX) 40 mg tablet Take 1 tablet by mouth once daily. 90 tablet 3 losartan (COZAAR) 50 mg tablet Take 50 mg by mouth once daily. ferrous sulfate 325 mg (65 mg iron) tablet Take 325 mg by mouth every other day. rosuvastatin (CRESTOR) 5 mg tablet Take 5 mg by mouth once daily. OTC PRODUCT 1,000 mg twice daily. Tumeric complex Lancets lancets Test blood sugar(s) 1 times daily. Dx: Type 2 DM - Controlled E11.9 Insulin: No 50 Each 11 blood sugar diagnostic (BLOOD GLUCOSE TEST) test strip Test blood sugar(s) 1 times daily. Dx: Type 2 DM - Controlled E11.9 Insulin: No 50 Strip 11 sotalol (BETAPACE) 80 mg tablet Take 1 1/2 tablets by mouth twice daily. apixaban (ELIQUIS) 5 mg tab(s) Take 5 mg by mouth twice daily. cyanocobalamin (VITAMIN B-12) 1,000 mcg tab Take 1,000 mcg by mouth once daily. VITAMIN B COMPLEX-100 ORAL Take 1 tablet by mouth once daily. clopidogrel (PLAVIX) 75 mg tablet Take 75 mg by mouth once daily. UBIDECARENONE (COQ-10 ORAL) Take 400 mg by mouth once daily. No current facility-administer ed medications for this visit. Review of Systems: As shown in history All other systems reviewed and are negative. Review of Systems Constitutional: Negative Eyes: Negative Hent: Negative Cardiovascular: Negative Respiratory: Negative GI: Negative : Negative Endocrine: Negative Musculoskeletal: Negative Integumentary: Negative Heme/Lymph: Negative Allergy/Immunologic : Negative Neurologic Positive for Memory Problems Psychiatric: Negative Patient's Review of Systems has been reviewed with the patient and updated as appropriate. Objective Physical Exam BP 134/83 (BP Site: Left Arm, BP Position: Sitting, BP Cuff Size: Regular Adult) Pulse 69 Resp 16 SpO2 100% Neurological Exam MENTAL STATUS: difficulty with recall and magnified by hearing loss 25/30 MMSE,hard of hearing forgot hearing (more content not included)... Normal [facility] CNOVon 09-04-2024 CNOV Office Visit (NRMDN) ---- RONNIE LEE ([id number]) 1940 M Date Time Provider Department 09/04/24 10:00 AM JANEEN GOODMAN During your visit today, we recorded the following information about you: Weight 73.1 kg Janeen Goodman MD 09/05/2024 10:14 AM Signed [facility] - NEW PATIENT EVALUATION Recording using [employer] software for draft documentation of the visit was discussed with the patient/authorized personal financial representative; all questions welcomed and answered. Patient/authorized personal financial representative agreed to proceed Primary Care Provider: Zachary Kennedy MD [address] [facility] [address] Dear Zachary Kennedy MD: I had the pleasure of evaluating Mr. Lee in our clinic today. As you know he is a 83 year old male who presents for evaluation of since . Subjective HISTORY OF PRESENT ILLNESS: Benny Lee is an 83-year-old male with a history of diabetes, presenting for evaluation of tremors and balance issues. He is accompanied by his , who provides additional history. Ed reports a longstanding history of hand tremors, beginning in his 60s, which primarily affect his left hand. These tremors are noticeable when eating or drinking, requiring the use of both hands to steady objects. He does not endorse tremors in his head, voice, or legs. He describes the tremors as manageable and not severe enough to warrant medication. Family history is significant for similar tremors in his mother, niece, and grandniece. He reports occasional dizziness and falls, occurring a few times per year, often on sloped surfaces. He does not endorse difficulty with getting in and out of bed, turning over in bed, or performing activities of daily living such as eating, dressing, or showering. He does not use a shower chair and prefers taking baths. He does not endorse weakness in his legs but notes that his right foot drags when walking, a symptom that began after a suspected stroke in [place]. He does not endorse numbness in his legs or elsewhere. He reports increased urinary frequency and urgency, sometimes leading to accidents. He does not endorse constipation, difficulty swallowing, drooling, or changes in speech or voice. He reports a decreased sense of smell without a history of sinus surgery or COVID-19 infection. He sleeps well at night and his notes that he talks and laughs in his sleep but does not act out dreams with physical movements. He does not endorse hallucinations or significant memory issues. He has been referred to neurology for memory though. He continues to drive and manage daily activities with minimal assistance from his daughter, who has set up automatic bill payments for him. His daughter lives in [place] near where he and his neha. His daughter is comfortable with him and his being in [place] for the summer on their own. He does not endorse feelings of sadness or anxiety affecting his life. He has been participating in physical therapy at [facility] in [place], which he finds helpful. He has not attended since August 13. Movement Disorders Medications Schedule - as of the start of the visit: Medications Questionnaires In addition, the following areas that may be affected by abnormal involuntary movements were evaluated: Daily activities Difficulties with eating: no Difficulties in dressing: no Difficulties with hygiene activities: no Difficulties with handwriting: no change Difficulties with doing hobbies and other activities: no Difficulties turning in bed: no Difficulties getting out of bed, car or chair: no Tremors/Gait/Balanc e Shaking or tremors: Walking and balance problems: Number of falls in the Last Month: Gait freezing: Autonomic/Pain Lightheadeness on standing: Urinary problems: urgency, frequency. accidents, not sure why Constipation problems: no Pain and other sensations: Speech/Swallowing Speech problems: no Drooling: no Chewing and swallowing problems: no Sleep/Fatigue Sleep problems: no Daytime sleepiness: Fatigue: In addition, the following non-motor symptoms and palliative concerns were evaluated: Sleep/Fatigue: REM sleep behavior disorder: Yes talks and laughs Restless Legs Syndrome: Leg swelling: Impaired sense of smell: No Cognition: Memory and Thinkin - Normal. No cognitive impairment. Hallucinations and Psychosis: 0 - Normal. No hallucinations or psychotic behavior. Depressed Mood: 0 - Normal. No depressed mood. Anxious Mood: 0 - Normal. No anxious feelings. Apathy: Impulse Control: MoCA Cognitive assessment: Palliative Concerns: Caregiver burden: Spiritual concerns: Advanced directives on file: Palliative services: Therapy and Exercise: Last PT Date: 08/13/2024 (with Naheed Becerra) for ataxia Last OT Date: Date: Exercises Regularly: ALLERGIES Allergen (more content not included)... Normal [facility] CNTHERAPYon 08-13-2024 [facility]THER[facility] ---- RONNIE LEE ([id number]) 1940 M Date Time Provider Department 08/13/24 3:00 PM NAHEED BECERRA [facility] Date Time Provider Department Center 08/13/2024 3:00 PM [id number], AMBER M [facility] M Reason for Visit: Physical Therapy [503] PT Discharge [752] Primary Visit Diagnosis:Ataxia [R27.0] Other Visit Diagnoses:Impairmen t of balance [R26.89] Weakness of both lower extremities [R29.898] At risk for falls [Z91.81] Allergies As of Date: 08/13/2024 Noted Allergy Reaction AVANDAMET (ROSIGLITAZONE-METF ORMI*04/18/2011 5 - Intolerance Comments: refuses IODINE 04/18/2011 10 - Anaphylaxis OXYCODONE 07/19/2017 8 - GI Upset 11 - Vomiting Comments: Dizziness PROMETHAZINE-CODEIN E 04/18/2011 5 - Intolerance Comments: Low BP, vomited Date Reviewed: 07/23/2024 Reviewed by: Escobar Thomas LPN - Fully Assessed Prescriptions as of 09/16/2024 - empagliflozin (JARDIANCE) 10 mg tablet Take 1 tablet by mouth daily with breakfast. - SITagliptin-metFORM IN (JANUMET) 50-1,000 mg per tablet Take 1 tablet in the morning and 1/2 tablet in the evening. - pantoprazole DR (PROTONIX) 40 mg tablet Take 1 tablet by mouth once daily. - losartan (COZAAR) 50 mg tablet Take 50 mg by mouth once daily. - ferrous sulfate 325 mg (65 mg iron) tablet Take 325 mg by mouth every other day. - rosuvastatin (CRESTOR) 5 mg tablet Take 5 mg by mouth once daily. - OTC PRODUCT 1,000 mg twice daily. Tumeric complex - Lancets lancets Test blood sugar(s) 1 times daily. Dx: Type 2 DM - Controlled E11.9 Insulin: No - blood sugar diagnostic (BLOOD GLUCOSE TEST) test strip Test blood sugar(s) 1 times daily. Dx: Type 2 DM - Controlled E11.9 Insulin: No - sotalol (BETAPACE) 80 mg tablet Take 1 1/2 tablets by mouth twice daily. - apixaban (ELIQUIS) 5 mg tab(s) Take 5 mg by mouth twice daily. - cyanocobalamin (VITAMIN B-12) 1,000 mcg tab Take 1,000 mcg by mouth once daily. - VITAMIN B COMPLEX-100 ORAL Take 1 tablet by mouth once daily. - clopidogrel (PLAVIX) 75 mg tablet Take 75 mg by mouth once daily. - UBIDECARENONE (COQ-10 ORAL) Take 400 mg by mouth once daily. [facility] ---- RONNIE LEE ([id number]) 1940 M Date Time Provider Department 08/06/24 11:45 AM NAHEED BECERRA [facility] Date Time Provider Department Center 08/06/2024 11:45 AM [id number], AMBER M [facility] Reason for Visit: Physical Therapy [503] Primary Visit Diagnosis:Ataxia [R27.0] Other Visit Diagnoses:Impairmen t of balance [R26.89] Weakness of both lower extremities [R29.898] At risk for falls [Z91.81] Allergies As of Date: 08/06/2024 Noted Allergy Reaction AVANDAMET (ROSIGLITAZONE-METF ORMI*04/18/2011 5 - Intolerance Comments: refuses IODINE 04/18/2011 10 - Anaphylaxis OXYCODONE 07/19/2017 8 - GI Upset 11 - Vomiting Comments: Dizziness PROMETHAZINE-CODEIN E 04/18/2011 5 - Intolerance Comments: Low BP, vomited Date Reviewed: 07/23/2024 Reviewed by: Escobar Thomas LPN - Fully Assessed Prescriptions as of 08/06/2024 - empagliflozin (JARDIANCE) 10 mg tablet Take 1 tablet by mouth daily with breakfast. - SITagliptin-metFORM IN (JANUMET) 50-1,000 mg per tablet Take 1 tablet in the morning and 1/2 tablet in the evening. - pantoprazole DR (PROTONIX) 40 mg tablet Take 1 tablet by mouth once daily. - losartan (COZAAR) 50 mg tablet Take 50 mg by mouth once daily. - ferrous sulfate 325 mg (65 mg iron) tablet Take 325 mg by mouth every other day. - rosuvastatin (CRESTOR) 5 mg tablet Take 5 mg by mouth once daily. - OTC PRODUCT 1,000 mg twice daily. Tumeric complex - Lancets lancets Test blood sugar(s) 1 times daily. Dx: Type 2 DM - Controlled E11.9 Insulin: No - blood sugar diagnostic (BLOOD GLUCOSE TEST) test strip Test blood sugar(s) 1 times daily. Dx: Type 2 DM - Controlled E11.9 Insulin: No - sotalol (BETAPACE) 80 mg tablet Take 1 1/2 tablets by mouth twice daily. - apixaban (ELIQUIS) 5 mg tab(s) Take 5 mg by mouth twice daily. - cyanocobalamin (VITAMIN B-12) 1,000 mcg tab Take 1,000 mcg by mouth once daily. - VITAMIN B COMPLEX-100 ORAL Take 1 tablet by mouth once daily. - clopidogrel (PLAVIX) 75 mg tablet Take 75 mg by mouth once daily. - UBIDECARENONE (COQ-10 ORAL) Take 400 mg by mouth once daily. [facility] CNTHERAPYon 07-31-2024 CNTHERAPY OT/PT/Speech Visit (RMMTUS) ---- DIANERONNIE ([id number]) 1940 M Date Time Provider Department 07/31/24 11:00 AM NAHEED BECERRA [facility] Date Time Provider Department Center 07/31/2024 11:00 AM [id number], AMBER M [facility] M Reason for Visit: Physical Therapy [503] Primary Visit Diagnosis:Ataxia [R27.0] Other Visit Diagnoses:Impairmen t of balance [R26.89] Weakness of both lower extremities [R29.898] At risk for falls [Z91.81] Allergies As of Date: 07/31/2024 Noted Allergy Reaction AVANDAMET (ROSIGLITAZONE-METF ORMI*04/18/2011 5 - Intolerance Comments: refuses IODINE 04/18/2011 10 - Anaphylaxis OXYCODONE 07/19/2017 8 - GI Upset 11 - Vomiting Comments: Dizziness PROMETHAZINE-CODEIN E 04/18/2011 5 - Intolerance Comments: Low BP, vomited Date Reviewed: 07/23/2024 Reviewed by: Escobar Thomas LPN - Fully Assessed Prescriptions as of 07/31/2024 - empagliflozin (JARDIANCE) 10 mg tablet Take 1 tablet by mouth daily with breakfast. - SITagliptin-metFORM IN (JANUMET) 50-1,000 mg per tablet Take 1 tablet in the morning and 1/2 tablet in the evening. - pantoprazole DR (PROTONIX) 40 mg tablet Take 1 tablet by mouth once daily. - losartan (COZAAR) 50 mg tablet Take 50 mg by mouth once daily. - ferrous sulfate 325 mg (65 mg iron) tablet Take 325 mg by mouth every other day. - rosuvastatin (CRESTOR) 5 mg tablet Take 5 mg by mouth once daily. - OTC PRODUCT 1,000 mg twice daily. Tumeric complex - Lancets lancets Test blood sugar(s) 1 times daily. Dx: Type 2 DM - Controlled E11.9 Insulin: No - blood sugar diagnostic (BLOOD GLUCOSE TEST) test strip Test blood sugar(s) 1 times daily. Dx: Type 2 DM - Controlled E11.9 Insulin: No - sotalol (BETAPACE) 80 mg tablet Take 1 1/2 tablets by mouth twice daily. - apixaban (ELIQUIS) 5 mg tab(s) Take 5 mg by mouth twice daily. - cyanocobalamin (VITAMIN B-12) 1,000 mcg tab Take 1,000 mcg by mouth once daily. - VITAMIN B COMPLEX-100 ORAL Take 1 tablet by mouth once daily. - clopidogrel (PLAVIX) 75 mg tablet Take 75 mg by mouth once daily. - UBIDECARENONE (COQ-10 ORAL) Take 400 mg by mouth once daily. [facility] CNTHERAPYon 07-25-2024 CNTHERAPY OT/PT/Speech Visit ([facility]) ---- RONNIE LEE ([id number]) 1940 M Date Time Provider Department 07/25/24 11:00 AM NAHEED BECERRA [facility] Date Time Provider Department Center 07/25/2024 11:00 AM [id number], AMBER M [facility] M Reason for Visit: Physical Therapy [503] Primary Visit Diagnosis:Ataxia [R27.0] Other Visit Diagnoses:Impairmen t of balance [R26.89] Weakness of both lower extremities [R29.898] At risk for falls [Z91.81] Allergies As of Date: 07/25/2024 Noted Allergy Reaction AVANDAMET (ROSIGLITAZONE-METF ORMI*04/18/2011 5 - Intolerance Comments: refuses IODINE 04/18/2011 10 - Anaphylaxis OXYCODONE 07/19/2017 8 - GI Upset 11 - Vomiting Comments: Dizziness PROMETHAZINE-CODEIN E 04/18/2011 5 - Intolerance Comments: Low BP, vomited Date Reviewed: 07/23/2024 Reviewed by: Escobar Thomas LPN - Fully Assessed Prescriptions as of 08/01/2024 - empagliflozin (JARDIANCE) 10 mg tablet Take 1 tablet by mouth daily with breakfast. - SITagliptin-metFORM IN (JANUMET) 50-1,000 mg per tablet Take 1 tablet in the morning and 1/2 tablet in the evening. - pantoprazole DR (PROTONIX) 40 mg tablet Take 1 tablet by mouth once daily. - losartan (COZAAR) 50 mg tablet Take 50 mg by mouth once daily. - ferrous sulfate 325 mg (65 mg iron) tablet Take 325 mg by mouth every other day. - rosuvastatin (CRESTOR) 5 mg tablet Take 5 mg by mouth once daily. - OTC PRODUCT 1,000 mg twice daily. Tumeric complex - Lancets lancets Test blood sugar(s) 1 times daily. Dx: Type 2 DM - Controlled E11.9 Insulin: No - blood sugar diagnostic (BLOOD GLUCOSE TEST) test strip Test blood sugar(s) 1 times daily. Dx: Type 2 DM - Controlled E11.9 Insulin: No - sotalol (BETAPACE) 80 mg tablet Take 1 1/2 tablets by mouth twice daily. - apixaban (ELIQUIS) 5 mg tab(s) Take 5 mg by mouth twice daily. - cyanocobalamin (VITAMIN B-12) 1,000 mcg tab Take 1,000 mcg by mouth once daily. - VITAMIN B COMPLEX-100 ORAL Take 1 tablet by mouth once daily. - clopidogrel (PLAVIX) 75 mg tablet Take 75 mg by mouth once daily. - UBIDECARENONE (COQ-10 ORAL) Take 400 mg by mouth once daily. Normal [facility] Basic metabolic 2000 panelon 07-23-2024 Anion gap [Moles/Vol] 11 mmol/L Normal 8-15 [facility] Comment on above: Order Comment: Speci men Type: BLOOD SPECIMEN Ordering Facility: [facility] Address: [address] [place] [address] Performed By: #### 5 5454-3 #### [facility] CLIA [id number] [address] [place] [address] [place] [address] [place] Calcium [Mass/Vol] 9.5 mg/dL Normal 8.5-10.2 [facility] Comment on above: Order Comment: Speci men Type: BLOOD SPECIMEN Ordering Facility: [facility] Address: [address] [place] [address] Performed By: #### 5 5454-3 #### [facility] CLIA [id number] [address] [place] [address] [place] Chloride [Moles/Vol] 103 mmol/L Normal 98-107 [facility] Comment on above: Order Comment: Speci men Type: BLOOD SPECIMEN Ordering Facility: [facility] Address: [address] [place] [address] Performed By: #### 5 5454-3 #### [facility] CLIA [id number] [address] [place] [address] [place] CO2 [Moles/Vol] 22 mmol/L Normal 22-30 [facility] Comment on above: Order Comment: Speci men Type: BLOOD SPECIMEN Ordering Facility: [facility] Address: [address] [place] [address] Performed By: #### 5 5454-3 #### [facility] CLIA [id number] [address] [place] [address] [place] Creatinine [Mass/Vol] 1.34 mg/dL High 0.73-1.22 [facility] Comment on above: Order Comment: Speci men Type: BLOOD SPECIMEN Ordering Facility: [facility] Address: [address] [place] [address] Performed By: #### 5 5454-3 #### [facility] CLIA [id number] [address] [place] [address] [place] Creatinine and Glomerular filtration rate.predicted panel (S/P/Bld) 52 mL/min/1.73m??? Low >=60 [facility] Comment on above: Order Comment: Speci men Type: BLOOD SPECIMEN Ordering Facility: [facility] Address: [address] [place] [address] Result Comment: Magnolia mated Glomerular Filtration Rate (eGFR) is calculated using the 2020 CKD-EPI creatinine equation. This equation utilizes serum creatinine, sex, and age as parameters. The creatinine assay has traceable calibration to isotope dilution-mass spectrometry. Refer to KDIGO guidelines for clinical interpretation. In patients with unstable renal function, e.g. those with acute kidney injury, the eGFR may not accurately reflect actual GFR. Performed By: #### 5 5454-3 #### [facility] CLIA [id number] [address] [place] [address] [place] Glucose [Mass/Vol] 259 mg/dL High 74-99 [facility] Comment on above: Order Comment: Janis kaba Type: BLOOD SPECIMEN Ordering Facility: [facility] Address: [address] [place] [address] Result Comment: The [place] [employer] (ADA) provides guidance for cutoff values for fasting glucose and random glucose. The ADA defines fasting as no caloric intake for at least 8 hours. Fasting plasma glucose results between 100 to 125 mg/dL indicate increased risk for diabetes (prediabetes). Fasting plasma glucose results greater than or equal to 126 mg/dL meet the criteria for diagnosis of diabetes. In the absence of unequivocal hyperglycemia, results should be confirmed by repeat testing. In a patient with classic symptoms of hyperglycemia or hyperglycemic crisis, random plasma glucose results greater than or equal to 200 mg/dL meet the criteria for diagnosis of diabetes. Reference: Standards of Medical Care in Diabetes 2016, [place] [employer]. Diabetes Care. 2016.39(Suppl 1). Performed By: #### 5 5454-3 #### [facility] CLIA [id number] [address] [place] [address] [place] Potassium [Moles/Vol] 4.6 mmol/L Normal 3.7-5.1 [facility] Comment on above: Order Comment: Janis kaba Type: BLOOD SPECIMEN Ordering Facility: [facility] Address: [address] [place] [address] Performed By: #### 5 5454-3 #### [facility] CLIA [id number] [address] [place], [place] [id number] [place] Sodium [Moles/Vol] 136 mmol/L Normal 136-144 [facility] Comment on above: Order Comment: Speci men Type: BLOOD SPECIMEN Ordering Facility: [facility] Address: [address] [place] [address] Performed By: #### 5 5454-3 #### [facility] CLIA [id number] [address] [place] [address] [place] Urea nitrogen [Mass/Vol] 22 mg/dL Normal 9-24 [facility] Comment on above: Order Comment: Speci men Type: BLOOD SPECIMEN Ordering Facility: [facility] Address: [address] [place], [place] [address] [address] Performed By: #### 5 5454-3 #### [facility] CLIA [id number] [address] [place] [address] OF [facility] CNOVon 07-23-2024 CNOV Office Visit (JEANINEWS) ---- RONNIE LEE ([id number]) 1940 M Date Time Provider Department 07/23/24 11:20 AM YA MOREL During your visit today, we recorded the following information about you: Pulse Respiration Blood pressure 71/minute 16/minute 116/82 Ya Morel APRN.HEATING AND BLENDING SUPERVISOR 07/23/2024 11:52 AM Addendum Continue taking Jardiance as prescribed, even if you do not feel a difference; it may take 3 months for changes to show in your blood work. Keep taking your other diabetes medications as usual. Monitor your diet by watching your sugar and carbohydrate intake--try to limit foods like breads, pastas, and potatoes. Complete the ordered blood work, which includes a kidney function panel; you should receive your results on Sunday or Alex. Plan to have your A1c rechecked in about 2 more months to see if the new medication is working. Continue attending your physical therapy sessions as discussed. Get the repeat A1C and follow-up with one of us in 2 months. Ya Morel APRN.HEATING AND BLENDING SUPERVISOR 07/23/2024 6:25 PM Signed This is a 83 year old male who presents today with: Ed is an 83-year-old male with a history of diabetes mellitus, presenting for follow-up. HISTORY OF PRESENT ILLNESS: Diabetes Mellitus: - Recent A1c was elevated. - Started on Jardiance last month; denies noticing any difference. - Denies polyuria. - Denies monitoring blood glucose levels at home. - Denies following a specific diet; consumes what he desires. - Denies symptoms of hypoglycemia. - Denies any issues with Jardiance. - Continues to take other diabetic medications. - Recent eye exam with Ophthalmology within the last month. 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 Hyperlipidemia Impacted cerumen TN (myocardial infarction) ([facility]) '93, '98, '03, '04 Pneumonia 03/08/2011 PAST SURGICAL HISTORY Procedure Laterality Date ANGIOPLASTY 02/2004 with stents ARTHRP ACETBLR/PROX FEM PROSTC AGRFT/ALGRFT Right CABG (2) VEIN GRAFTS AND ARTERIAL GRAFT(S 09/09/1997 COLONOSCOPY 07/26/2022 COLONOSCOPY SCREENING 08/09/2022 Dr Du CORONARY ARTERY DILATION 03/12/2010 3 stents EGD 07/26/2022 IMPLANTABLE CARDIOVERTER DEFIBRILLATOR 09/05/2010 duel chamber REMV CATARACT EXTRACAP,INSERT LENS Bilateral ALLERGIES Avandamet [Rosiglitazone-Metf ormin], Iodine, Oxycodone, and Promethazine-Codein e MEDICATIONS Current Outpatient Medications Medication Sig empagliflozin (JARDIANCE) 10 mg tablet Take 1 tablet by mouth daily with breakfast. SITagliptin-metFORM IN (JANUMET) 50-1,000 mg per tablet Take 1 tablet in the morning and 1/2 tablet in the evening. pantoprazole DR (PROTONIX) 40 mg tablet Take 1 tablet by mouth once daily. losartan (COZAAR) 50 mg tablet Take 50 mg by mouth once daily. ferrous sulfate 325 mg (65 mg iron) tablet Take 325 mg by mouth every other day. rosuvastatin (CRESTOR) 5 mg tablet Take 5 mg by mouth once daily. (Patient taking differently: Take 5 mg by mouth two times a day.) OTC PRODUCT 1,000 mg twice daily. Tumeric complex Lancets lancets Test blood sugar(s) 1 times daily. Dx: Type 2 DM - Controlled E11.9 Insulin: No blood sugar diagnostic (BLOOD GLUCOSE TEST) test strip Test blood sugar(s) 1 times daily. Dx: Type 2 DM - Controlled E11.9 Insulin: No sotalol (BETAPACE) 80 mg tablet Take 1 1/2 tablets by mouth twice daily. apixaban (ELIQUIS) 5 mg tab(s) Take 5 mg by mouth twice daily. cyanocobalamin (VITAMIN B-12) 1,000 mcg tab Take 1,000 mcg by mouth once daily. VITAMIN B COMPLEX-100 ORAL Take 1 tablet by mouth once daily. clopidogrel (PLAVIX) 75 mg tablet Take 75 mg by mouth once daily. UBIDECARENONE (COQ-10 ORAL) Take 400 mg by mouth once daily. No current facility-administer ed medications for this visit. FAMILY HISTORY Problem Relation Age of Onset Heart Father Cancer Mother Diabetes Sister Diabetes Other Diabetes Other Diabetes Daughter prediabetic Social History Tobacco Use Smoking status: Never Smokeless tobacco: Never Vaping Use Vaping status: Never Used Substance Use Topics Alcohol use: No Drug use: No REVIEW OF SYSTEMS Cardiovascular: (-) chest pain, (-) foot/ankle swelling Respiratory: (+) shortness of breath Genitourinary: (-) urinary changes EXAM: BP 116/82 Pulse 71 Resp 16 SpO2 99% PHYSICAL EXAM: General Appearance: Well appearing, alert, in no acute distress, well-hydrated, well nourished.. Skin: Skin color, texture, turgor normal, no suspicious rashes or lesions. Head: Normocephalic, no masses, lesions, tenderness or abnormalities. Eyes: Anicteric (more content not included)... Normal [facility] CNTHERAPYon 07-23-2024 CNTHERAPY OT/PT/Speech Visit ([facility]MTUS) ---- DIANERONNIE ([id number]) 1940 M Date Time Provider Department 07/23/24 2:00 PM NAHEED BECERRA [facility] Date Time Provider Department Center 07/23/2024 2:00 PM [id number], AMBER M [facility] M Reason for Visit: Physical Therapy [503] Primary Visit Diagnosis:Ataxia [R27.0] Other Visit Diagnoses:Impairmen t of balance [R26.89] Weakness of both lower extremities [R29.898] At risk for falls [Z91.81] Allergies As of Date: 07/23/2024 Noted Allergy Reaction AVANDAMET (ROSIGLITAZONE-METF ORMI*04/18/2011 5 - Intolerance Comments: refuses IODINE 04/18/2011 10 - Anaphylaxis OXYCODONE 07/19/2017 8 - GI Upset 11 - Vomiting Comments: Dizziness PROMETHAZINE-CODEIN E 04/18/2011 5 - Intolerance Comments: Low BP, vomited Date Reviewed: 07/23/2024 Reviewed by: Escobar Thomas LPN - Fully Assessed Prescriptions as of 07/25/2024 - empagliflozin (JARDIANCE) 10 mg tablet Take 1 tablet by mouth daily with breakfast. - SITagliptin-metFORM IN (JANUMET) 50-1,000 mg per tablet Take 1 tablet in the morning and 1/2 tablet in the evening. - pantoprazole DR (PROTONIX) 40 mg tablet Take 1 tablet by mouth once daily. - losartan (COZAAR) 50 mg tablet Take 50 mg by mouth once daily. - ferrous sulfate 325 mg (65 mg iron) tablet Take 325 mg by mouth every other day. - rosuvastatin (CRESTOR) 5 mg tablet Take 5 mg by mouth once daily. - OTC PRODUCT 1,000 mg twice daily. Tumeric complex - Lancets lancets Test blood sugar(s) 1 times daily. Dx: Type 2 DM - Controlled E11.9 Insulin: No - blood sugar diagnostic (BLOOD GLUCOSE TEST) test strip Test blood sugar(s) 1 times daily. Dx: Type 2 DM - Controlled E11.9 Insulin: No - sotalol (BETAPACE) 80 mg tablet Take 1 1/2 tablets by mouth twice daily. - apixaban (ELIQUIS) 5 mg tab(s) Take 5 mg by mouth twice daily. - cyanocobalamin (VITAMIN B-12) 1,000 mcg tab Take 1,000 mcg by mouth once daily. - VITAMIN B COMPLEX-100 ORAL Take 1 tablet by mouth once daily. - clopidogrel (PLAVIX) 75 mg tablet Take 75 mg by mouth once daily. - UBIDECARENONE (COQ-10 ORAL) Take 400 mg by mouth once daily. Corrosion Engineer: Addendum Therapy (PT/OT/Speech/Resp) ID: [id number] 07/23/2024 2:31 PM Author: NAHEED BECERRA Signed by NAHEED BECERRA AQUATICS DIRECTOR on 07/23/2024 at 2:31 PM * * * This document replaces document [id number] * * * Document text: Program_ID:[id number] Access Code: [email or web address] URL: [email or web address] Date: 07-23-2024 Prepared By: Marce Mann Program Notes Exercises - Seated Hip Adduction Isometrics with Ball - 1 x daily - 7 x weekly - 2 sets - 15 reps - Seated Long Arc Quad - 1 x daily - 7 x weekly - 2 sets - 15 reps [facility] THERAPY NTon 07-23-2024 THERAPY NT HNO ID: [id number] Author: NAHEED BECERRA PTA Service: ? Author Type: Glove Turner And Former Automatic Type: Therapy (PT/OT/Speech/Resp) Filed: 07/23/2024 14:31 Note Text: Program_ID:[id number] Access Code: [email or web address] URL: [email or web address] Date: 07-23-2024 Prepared By: Marce Mann Program Notes Exercises - Seated Hip Adduction Isometrics with Ball - 1 x daily - 7 x weekly - 2 sets - 15 reps - Seated Long Arc Quad - 1 x daily - 7 x weekly - 2 sets - 15 reps [facility] [id number] 07-16-2024 [id number] HNO ID: [id number] Author: EDMOND SAAVEDRA PT Service: ? Author Type: Physical Therapist Type: [id number] Filed: 07/16/2024 15:48 Note Text: [facility] Physical Therapy Plan of Care Certification Patient Name: Ronnie Lee : 1940 [facility] #: [id number] Date: 07/16/2024 To: Zachary Kennedy MD From Therapist: Edmond Saavedra PT, JUAN MANUEL RE: Patient Certification/ Recertification Your review, approval and electronic signature are required in order to comply with Payor: PRIMETIME / Plan: PRIMETIME HMO POS / Product Type: HMO / regulations. The identified Physical Therapy PLAN OF CARE for the patient is as follows: R27.0 Ataxia (primary encounter diagnosis) R26.89 Impairment of balance R29.898 Weakness of both lower extremities Z91.81 At risk for falls PLAN OF CARE: Assessment: 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 Uses handrail to pull himself up the steps. Difficulty with tub transfers.) . The patient presents with impairments in ADL's, balance, gait, independence in exercise, overall function, posture, and strength. Patient did not complete the PROMIS? (Patient Reported Outcome Measures Information System). Prognosis for therapy is Good due to: positive past response to therapy, good support system/ coping skills, current objective clinical presentation, Prognosis may be limited due to advanced age .Patient presents with history of 3-4 falls in the last year duration, does not utilize any assistive device with ambulation, presents with decreased bilateral LE strength, decreased balance as noted by 5x Sit to Stand, Timed Up and Go, and 4 Stage Balance Test for tandem base of support and single leg stance. The patient will benefit from skilled therapy services to meet the goals established for this plan of care as noted below. Assessment Fall Risk : Active at risk Goals for Episode of Care: established 07/16/24 Improve score on Timed Up and Go Test to less than 10 seconds with less reliance on UE use for sit to stand transfer to reflect decreased fall risk. Improve performance on 4 Stage Balance Test to 10 seconds for tandem base of support and up to 5 seconds for single leg stance to reflect decreased fall risk. Increase strength of bilateral LE to 4+-5/5 in order to improve sit to stand transfers, tub transfers and ability to tolerate longer distance ambulation with less difficulty. Patient to be independent in home exercise program for bilateral LE strengthening and balance exercise to return patient to prior level of function and reduce overall fall risk. Patient Goals: Make me stronger and improve my balance Time Frame for Goals and Treatment : 09/05/24 Planned Interventions, Frequency, and Duration: Current Frequency: 2x/week Duration: 6 weeks Total Number of Visits Planned: 12 Planned Treatment Interventions: Therapeutic exercise (15165), Neuromuscular re-education (25163), Therapeutic activities (51510), Self-alf management (59047), Gait Training (84861), Patient/Family/home health aide caregiver Education, General Conditioning PLAN FOR NEXT VISIT: Review HEP. Progress with further standing balance exercises next session. May initiate gait activities in parallel bars, closed chain step ups, resisted ambulation, Recumbent Stepper, Shuttle when indicated. Patient demonstrates good understanding of plan of care and treatment. The above goals and plan of care were discussed and agreed upon by patient/family. For further details regarding this patient refer to the Physical Therapy electronically documented visit dated 07/16/2024. Provider Attestation I have reviewed the treatment plan for Ronnie Lee, [facility]# [id number] for the period of 07/16/24 -- 09/05/24, established on 07/16/2024. Signature certifies the need for therapy services. [facility] CNTHERAPYon 07-16-2024 CNTHERAPY OT/PT/Speech Visit ([facility]MTUS) ---- RONNIE LEE ([id number]) 1940 M Date Time Provider Department 07/16/24 1:30 PM EDMOND SAAVEDRA [facility] Date Time Provider Department Center 07/16/2024 1:30 [id number] for Visit: PT Eval [747] Primary Visit Diagnosis:Ataxia [R27.0] Other Visit Diagnoses:Impairmen t of balance [R26.89] Weakness of both lower extremities [R29.898] At risk for falls [Z91.81] Allergies As of Date: 07/16/2024 Noted Allergy Reaction AVANDAMET (ROSIGLITAZONE-METF ORMI*04/18/2011 5 - Intolerance Comments: refuses IODINE 04/18/2011 10 - Anaphylaxis OXYCODONE 07/19/2017 8 - GI Upset 11 - Vomiting Comments: Dizziness PROMETHAZINE-CODEIN E 04/18/2011 5 - Intolerance Comments: Low BP, vomited Date Reviewed: 07/08/2024 Reviewed by: Annabel Pham OCCA - Fully Assessed Prescriptions as of 07/25/2024 - empagliflozin (JARDIANCE) 10 mg tablet Take 1 tablet by mouth daily with breakfast. - SITagliptin-metFORM IN (JANUMET) 50-1,000 mg per tablet Take 1 tablet in the morning and 1/2 tablet in the evening. - pantoprazole DR (PROTONIX) 40 mg tablet Take 1 tablet by mouth once daily. - losartan (COZAAR) 50 mg tablet Take 50 mg by mouth once daily. - ferrous sulfate 325 mg (65 mg iron) tablet Take 325 mg by mouth every other day. - rosuvastatin (CRESTOR) 5 mg tablet Take 5 mg by mouth once daily. - OTC PRODUCT 1,000 mg twice daily. Tumeric complex - Lancets lancets Test blood sugar(s) 1 times daily. Dx: Type 2 DM - Controlled E11.9 Insulin: No - blood sugar diagnostic (BLOOD GLUCOSE TEST) test strip Test blood sugar(s) 1 times daily. Dx: Type 2 DM - Controlled E11.9 Insulin: No - sotalol (BETAPACE) 80 mg tablet Take 1 1/2 tablets by mouth twice daily. - apixaban (ELIQUIS) 5 mg tab(s) Take 5 mg by mouth twice daily. - cyanocobalamin (VITAMIN B-12) 1,000 mcg tab Take 1,000 mcg by mouth once daily. - VITAMIN B COMPLEX-100 ORAL Take 1 tablet by mouth once daily. - clopidogrel (PLAVIX) 75 mg tablet Take 75 mg by mouth once daily. - UBIDECARENONE (COQ-10 ORAL) Take 400 mg by mouth once daily. Corrosion Engineer: Therapy (PT/OT/Speech/Resp) ID: [id number] 07/16/2024 2:31 PM Author: EDMOND SAAVEDRA Signed by EDMOND SAAVEDRA PT on 07/16/2024 at 2:31 PM Document text: Program_ID:[id number] Access Code: [email or web address] URL: [email or web address] Date: 07-16-2024 Prepared By: Marce Mann Program Notes Exercises - Seated Hip Abduction with Resistance - 1-2 x daily - 7 x weekly - 1 sets - 30 reps - Seated Knee Lifts with Resistance - 1-2 x daily - 7 x weekly - 1 sets - 30 reps - Heel Toe Raises with Counter Support - 1-2 x daily - 7 x weekly - 1 sets - 30 reps - Standing Single Leg Stance with Counter Support - 1-2 x daily - 7 x weekly - 1 sets - 3 reps [facility] THERAPY NTon 07-16-2024 THERAPY NT HNO ID: [id number] Author: EDMOND SAAVEDRA PT Service: ? Author Type: Physical Therapist Type: Therapy (PT/OT/Speech/Resp) Filed: 07/16/2024 14:31 Note Text: Program_ID:[id number] Access Code: [email or web address] URL: [email or web address] Date: 07-16-2024 Prepared By: Marce Mann Program Notes Exercises - Seated Hip Abduction with Resistance - 1-2 x daily - 7 x weekly - 1 sets - 30 reps - Seated Knee Lifts with Resistance - 1-2 x daily - 7 x weekly - 1 sets - 30 reps - Heel Toe Raises with Counter Support - 1-2 x daily - 7 x weekly - 1 sets - 30 reps - Standing Single Leg Stance with Counter Support - 1-2 x daily - 7 x weekly - 1 sets - 3 reps Normal [facility] CNOVon 07-08-2024 CNOV Office Visit (VASSWS) ---- RONNIE LEE ([id number]) 1940 M Date Time Provider Department 07/08/24 11:00 AM [facility] During your visit today, we recorded the following information about you: Pulse Blood pressure 78/minute 130/73 Abigial Moss DO 07/08/2024 11:31 AM [facility] [place] DEPARTMENT OF VASCULAR SURGERY OUTPATIENT VISIT DATE July 08, 2024 OUTPATIENT VISIT TYPE ESTABLISHED SERVICE DATE: 07/08/2024 SERVICE TIME: 11:06 AM PRIMARY CARE PHYSICIAN: Zachary Kennedy MD HISTORY OF PRESENT ILLNESS: Mr. Lee is a 83 year old male who presents today for a vascular surgery follow-up visit for peripheral arterial disease. He has a history of stroke last year while in [place]. Recently they have noticed that he isn't using his right leg as he had in the past. Unknown when weakness started. He drove down to [place] in December without difficulty. Denies rest pain or tissue loss. He had a CT head ordered by Dr. 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 Hyperlipidemia Impacted cerumen [place] (myocardial infarction) ([facility]) , , 03, '04 Pneumonia 03/08/2011 PAST SURGICAL HISTORY Procedure Laterality Date ANGIOPLASTY 02/2004 with stents ARTHRP ACETBLR/PROX FEM PROSTC AGRFT/ALGRFT Right CABG (2) VEIN GRAFTS AND ARTERIAL GRAFT(S 09/09/1997 COLONOSCOPY 07/26/2022 COLONOSCOPY SCREENING 08/09/2022 Dr Du CORONARY ARTERY DILATION 03/12/2010 3 stents EGD 07/26/2022 IMPLANTABLE CARDIOVERTER DEFIBRILLATOR 09/05/2010 duel chamber REMV CATARACT EXTRACAP,INSERT LENS Bilateral SOCIAL HISTORY Social History Tobacco Use Smoking status: Never Smokeless tobacco: Never Vaping Use Vaping status: Never Used Substance Use Topics Alcohol use: No Drug use: No MEDICATIONS: empagliflozin (JARDIANCE) 10 mg tablet Take 1 tablet by mouth daily with breakfast. SITagliptin-metFORM IN (JANUMET) 50-1,000 mg per tablet Take 1 tablet in the morning and 1/2 tablet in the evening. pantoprazole DR (PROTONIX) 40 mg tablet Take 1 tablet by mouth once daily. losartan (COZAAR) 50 mg tablet Take 50 mg by mouth once daily. ferrous sulfate 325 mg (65 mg iron) tablet Take 325 mg by mouth every other day. rosuvastatin (CRESTOR) 5 mg tablet Take 5 mg by mouth once daily. (Patient taking differently: Take 5 mg by mouth two times a day.) OTC PRODUCT 1,000 mg twice daily. Tumeric complex Lancets lancets Test blood sugar(s) 1 times daily. Dx: Type 2 DM - Controlled E11.9 Insulin: No blood sugar diagnostic (BLOOD GLUCOSE TEST) test strip Test blood sugar(s) 1 times daily. Dx: Type 2 DM - Controlled E11.9 Insulin: No sotalol (BETAPACE) 80 mg tablet Take 1 1/2 tablets by mouth twice daily. apixaban (ELIQUIS) 5 mg tab(s) Take 5 mg by mouth twice daily. cyanocobalamin (VITAMIN B-12) 1,000 mcg tab Take 1,000 mcg by mouth once daily. VITAMIN B COMPLEX-100 ORAL Take 1 tablet by mouth once daily. clopidogrel (PLAVIX) 75 mg tablet Take 75 mg by mouth once daily. UBIDECARENONE (COQ-10 ORAL) Take 400 mg by mouth once daily. ALLERGIES: ALLERGIES Allergen Reactions Avandamet [Rosiglit* Intolerance refuses Iodine Anaphylaxis Oxycodone GI Upset, Vomiting Dizziness Promethazine-Codein e Intolerance Low BP, vomited PHYSICAL EXAM: BP 130/73 (BP Site: Left Arm, BP Position: Sitting, BP Cuff Size: Regular Adult) Pulse 78 SpO2 97% Gen- no distress Neuro- right leg weakness, no ulcerations or tissue loss, non palpable distal pulses Diagnostic tests reviewed for today's visit: Most recent labs Most recent imaging PVRs- unchanged- R .077, L 0.83, Carotid- bilateral ICA <50% stenosis, right innominate soft plaque noted IMPRESSION: Mr. Lee is a 83 year old male with peripheral arterial disease, right leg weakness . PLAN and RECOMMENDATIONS: Recommend continue current medications- including statin, aspirin Continue walking/exercise as tolerated He has appointment with PT for gait abnormality Follow up with me in 1 year SIGNATURE: Abigail Moss DO PATIENT NAME: Ronnie Lee DATE: July 08, 2024 TIME: 11:06 AM Referring Provider: ABIGAIL MOSS [[id number]] Allergies As of Date: 07/08/2024 Noted Allergy Reaction AVANDAMET (ROSIGLITAZONE-METF ORMI*04/18/2011 5 - Intolerance Comments: refuses IODINE 04/18/2011 10 - Anaphylaxis OXYCODONE 07/19/2017 8 - GI Upset 11 - Vomiting Comments: Dizziness PROMETHAZINE-CODEIN E 04/18/2011 5 - Intolerance Comments: Low BP, vo (more content not included)... Normal [facility] PVR LEG OMER VAS LABon 2024 PVR LEG OMER VAS LAB Non-Invasive Vascular Laboratory [facility] Lower Extremity Arterial Physiology Study Bilateral/Complete Date of service/time: 07/08/2024 10:06:29 AM Name: MR. RONNIE LEE Date of : 1940 Age: 83 years Gender: M Clinical Indication Peripheral arterial disease. TECHNIQUE -------- An arterial physiological examination was performed, including measurement of blood pressures using continuous wave Doppler and recording of plethysmographic with or without Doppler waveforms at the below-mentioned limb segments. FINDINGS -------- RIGHT SIDE AT REST Right Doppler Waveforms Dorsalis pedis: Monophasic. Post tibial: Monophasic. Right Pressures Brachial: 134 mmHg High thigh: 175 mmHg Low thigh: 233 mmHg Calf: 131 mmHg Ankle dorsalis pedis: 88 mmHg RAMANA: 0.66 Ankle posterior tibial: 103 mmHg RAMANA: 0.77 Right PVR Waveforms High thigh: Mildly dampened. Low thigh: Mildly dampened. Calf: Mildly dampened. Ankle: Moderately dampened. Transmetatarsal: Moderately dampened. Digit: Moderately dampened. LEFT SIDE AT REST Left Doppler Waveforms Dorsalis pedis: Monophasic. Post tibial: Monophasic. Left Pressures Brachial: 130 mmHg High thigh: 163 mmHg Low thigh: 173 mmHg Calf: 116 mmHg Ankle dorsalis pedis: 83 mmHg RAMANA: 0.62 Ankle posterior tibial: 111 mmHg RAMANA: 0.83 Left PVR Waveforms High thigh: Mildly dampened. Low thigh: Mildly dampened. Calf: Mildly dampened. Ankle: Moderately dampened. Transmetatarsal: Moderately dampened. Digit: Moderately dampened. IMPRESSION Compared to prior study of 07/10/2023, Right RAMANA was .72; left was .83. RIGHT SIDE Resting right ankle brachial index: 0.77 Abnormal ankle brachial index at rest diagnostic of peripheral artery disease. LEFT SIDE Resting left ankle brachial index: 0.83 Abnormal ankle brachial index at rest diagnostic of peripheral artery disease. Technologist: Neha Polanco BA, RVT Ordering physician: ABIGAIL MOSS Interpreting physician: YANY Andino MD Final [employer] [facility] Image : [id number] [email or web address] See Link below for Image Normal [facility] US CAROTID ARTERIES OMER VAS LABon 07-08-2024 US CAROTID ARTERIES OMER VAS LAB Non-Invasive Vascular Laboratory [facility] Carotid Duplex Bilateral/Complete Date of service/time: 07/08/2024 9:38:19 AM Name: MR. RONNIE LEE Date of : 1940 Age: 83 years Gender: M Clinical Indication Asymptomatic cervical bruit. TECHNIQUE -------- A carotid duplex ultrasound examination was performed, including grayscale imaging and color Doppler and spectral Doppler examination of the below mentioned arteries. FINDINGS -------- RIGHT SIDE Common carotid artery: Origin: PSV: 85 cm/s. EDV: 0 cm/s. Proximal: PSV: 69 cm/s. EDV: 10 cm/s. Mid: PSV: 93 cm/s. EDV: 8 cm/s. Distal: PSV: 105 cm/s. EDV: 15 cm/s. Moderate heterogeneous plaque at distal. Internal carotid artery: Origin: PSV: 105 cm/s. EDV: 23 cm/s. Proximal: PSV: 90 cm/s. EDV: 17 cm/s. Mid: PSV: 62 cm/s. EDV: 21 cm/s. Distal: PSV: 40 cm/s. EDV: 13 cm/s. Moderate heterogeneous plaque from origin to proximal. ICA/CCA Ratio: 1.0 External carotid artery: Proximal: PSV: 132 cm/s. EDV: 0 cm/s. Moderate heterogeneous plaque from origin to proximal. Subclavian artery: Proximal: PSV: 88 cm/s. EDV: 0 cm/s. Innominate artery: PSV: 83 cm/s. EDV: 12 cm/s. Vertebral artery: PSV: 45 cm/s. EDV: 7 cm/s. LEFT SIDE Common carotid artery: Proximal: PSV: 88 cm/s. EDV: 11 cm/s. Mid: PSV: 115 cm/s. EDV: 17 cm/s. Distal: PSV: 70 cm/s. EDV: 14 cm/s. Mild heterogeneous plaque from mid to distal. Internal carotid artery: Origin: PSV: 53 cm/s. EDV: 12 cm/s. Proximal: PSV: 50 cm/s. EDV: 12 cm/s. Mid: PSV: 70 cm/s. EDV: 21 cm/s. Distal: PSV: 55 cm/s. EDV: 18 cm/s. Mild heterogeneous plaque at origin. ICA/CCA Ratio: 0.8 External carotid artery: Proximal: PSV: 125 cm/s. EDV: 0 cm/s. Moderate heterogeneous plaque at origin. Subclavian artery: Proximal: PSV: 88 cm/s. EDV: 0 cm/s. Vertebral artery: PSV: 60 cm/s. EDV: 18 cm/s. IMPRESSION Please note: the new carotid interpretation criteria are used as recommended by [employer]. RIGHT SIDE Common carotid artery: Plaque visualized without evidence of hemodynamically significant stenosis. Internal carotid artery: <50% stenosis consistent with mild carotid artery disease. External carotid artery: Patent. Vertebral artery: Patent and antegrade flow noted. Innominate artery: There appears to be soft plaque at the distal vessel, cannot rule out chronic dissection. Subclavian artery: Patent. LEFT SIDE Common carotid artery: Plaque visualized without evidence of hemodynamically significant stenosis. Internal carotid artery: <50% stenosis consistent with mild carotid artery disease. External carotid artery: Patent. Vertebral artery: Patent and antegrade flow noted. Subclavian artery: Patent. Technologist: Neha Polanco BA, RVT Ordering physician: ABIGAIL MOSS Interpreting physician: Jefry Bolden MD, YANY Final [employer] [facility] Image : [id number] ngoDynamicsSISUID See Link below for Image [facility]FAMP[facility] ---- RONNIE LEE ([id number]) 1940 M Date Time Provider Department 07/07/24 [facility] During your visit today, we recorded the following information about you: Zachary Kennedy MD 07/07/2024 4:[address] of brain did not show new strokes or bleeding. It did show some changes that can be related to memory loss but can also be related to fluid not draining well in the brain. Lets refer to neuro. (We did not do MRI due to ICD and issues with contrast) Bri Pal RN 07/07/2024 5:07 PM Signed Pt and called and is notified of providers results and instructions. The voices understanding. Pts was put through to scheduling to set up appointment with Neurology. Bri Pal RN Allergies As of Date: 07/07/2024 Noted Allergy Reaction AVANDAMET (ROSIGLITAZONE-METF ORMI*04/18/2011 5 - Intolerance Comments: refuses IODINE 04/18/2011 10 - Anaphylaxis OXYCODONE 07/19/2017 8 - GI Upset 11 - Vomiting Comments: Dizziness PROMETHAZINE-CODEIN E 04/18/2011 5 - Intolerance Comments: Low BP, vomited Date Reviewed: 06/20/2024 Reviewed by: Jhon Huerta MA - Fully Assessed Reason for Visit: Results [95] Primary Visit Diagnosis:Abnormal CT scan of head [R93.0] Other Visit Diagnosis:Memory loss [R41.3] Order(s):CONSULT TO NEUROLOGY [9046] Order #: [id number]: 1 FUTURE Prescriptions as of 07/07/2024 - empagliflozin (JARDIANCE) 10 mg tablet Take 1 tablet by mouth daily with breakfast. - SITagliptin-metFORM IN (JANUMET) 50-1,000 mg per tablet Take 1 tablet in the morning and 1/2 tablet in the evening. - pantoprazole DR (PROTONIX) 40 mg tablet Take 1 tablet by mouth once daily. - losartan (COZAAR) 50 mg tablet Take 50 mg by mouth once daily. - ferrous sulfate 325 mg (65 mg iron) tablet Take 325 mg by mouth every other day. - rosuvastatin (CRESTOR) 5 mg tablet Take 5 mg by mouth once daily. - OTC PRODUCT 1,000 mg twice daily. Tumeric complex - Lancets lancets Test blood sugar(s) 1 times daily. Dx: Type 2 DM - Controlled E11.9 Insulin: No - blood sugar diagnostic (BLOOD GLUCOSE TEST) test strip Test blood sugar(s) 1 times daily. Dx: Type 2 DM - Controlled E11.9 Insulin: No - sotalol (BETAPACE) 80 mg tablet Take 1 1/2 tablets by mouth twice daily. - apixaban (ELIQUIS) 5 mg tab(s) Take 5 mg by mouth twice daily. - cyanocobalamin (VITAMIN B-12) 1,000 mcg tab Take 1,000 mcg by mouth once daily. - VITAMIN B COMPLEX-100 ORAL Take 1 tablet by mouth once daily. - clopidogrel (PLAVIX) 75 mg tablet Take 75 mg by mouth once daily. - UBIDECARENONE (COQ-10 ORAL) Take 400 mg by mouth once daily. 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] 12/04/2018 06/17/2024 PAD (peripheral artery disease) (HCC) [I73.9] 07/28/2020 Stage 3 chronic kidney disease (HCC) [N18.30] 12/13/2020 ICD (implantable cardioverter-defibr illator) in*12/12/2021 Ischemic cardiomyopathy [I25.5] 12/12/2021 Platelets decreased (HCC) [D69.6] 07/04/2022 Acute combined systolic and diastolic heart jeramy*07/04/2022 Primary hypertension [I10] 07/19/2022 Gastrointestinal hemorrhage associated with int*08/15/2022 Anemia [D64.9] 09/04/2022 Diagnosed: 12/22/2022 Arthritis [M19.90] 12/22/2022 Diagnosed: 12/22/2022 Congestive heart failure (HCC) [I50.9] 12/22/2022 Diagnosed: 12/22/2022 Dyslipidemia [E78.5] 08/31/2021 Diagnosed: 12/22/2022 Encounter for immunization [Z23] 12/22/2022 12/22/2022 Diagnosed: 12/22/2022 Hearing loss [H91.90] 12/22/2022 Diagnosed: 12/22/2022 High thyroid stimulating hormone (TSH) level [R*12/22/2022 Diagnosed: 12/22/2022 Hip pain [M25.559] 12/22/2022 06/17/2024 Diagnosed: 12/22/2022 History of chronic lymphocytic leukemia [Z85.6] 12/22/2022 Diagnosed: 12/22/2022 History of repair of hip joint [Z98.890] 12/22/2022 Diagnosed: 12/22/2022 supervisor intermediates (current) use of anticoagulants [Z79.*12/22/2022 Diagnosed: 12/22/2022 Myocardial infarction (HCC) [I21.9] 12/22/2022 06/17/2024 Diagnosed: 12/22/2022 Osteoarthritis of hip [M16.9] 12/22/2022 Diagnosed: 12/22/2022 Paroxysmal ventricular tachycardia (HCC) [I47.2*12/22/2022 Diagnosed: 12/22/2022 Pneumonia [J18.9] 12/22/2022 06/17/2024 Diagnosed: 12/22/2022 Poisoning by vitamin D [T45.2X1A] 12/22/2022 12/22/2022 Diagnosed: 12/22/2022 Recur (more content not included)... Normal [facility] CT BRAIN WO IVCONon 07-03-[address] BRAIN WO IVCON * * *Final Report* * * DATE OF EXAM: Jul 02 2024 1:13PM [facility] 0504 - CT BRAIN WO IVCON / PROCEDURE REASON: multiple diagnoses * * * * Physician Interpretation * * * * EXAMINATION: CT BRAIN WO IVCON CLINICAL HISTORY: [facility] (current) use of anticoagulants Ataxia Memory loss TECHNIQUE: Serial axial images without IV contrast were obtained from the vertex to the foramen magnum. MQ: CTBWO_3 CT Radiation dose: Integrated Dose-Length Product (DLP) for this visit = 719 mGy*cm CT Dose Reduction Employed: Automated exposure control(AEC) and iterative recon COMPARISON: None. RESULT: Localizer images: No additional findings. Post-operative change: None. Acute change: No evidence of an acute infarct or other acute parenchymal process. Hemorrhage: No evidence of acute intracranial hemorrhage. ECASS hemorrhagic transformation score: Not Applicable Mass Lesion / Mass Effect: There is no evidence of an intracranial mass or extraaxial fluid collection. No significant mass effect. Chronic change: Scattered patchy foci of low attenuation are present within the supratentorial white matter, a nonspecific finding that most commonly represents mild small vessel disease. Remote lacunar infarct at the genu of the left internal capsule, and right caudate nucleus.. Parenchyma: There is mild generalized volume loss. The brain parenchyma is otherwise within normal limits for age. Ventricles: Moderate lateral and third ventriculomegaly out of proportion to cortical sulci and relatively crowded vertex sulci compared to perisylvian sulci. This pattern can be seen with normal pressure/communicat ing hydrocephalus and disproportionate enlargement of the subarachnoid space hydrocephalus (DESH) the appropriate clinical context. Paranasal sinuses and skull base: The visualized paranasal sinuses are grossly clear. The skull base and imaged soft tissues are unremarkable. IMPRESSION: No evidence of acute intracranial process or mass effect. Consider normal pressure/communicat ing hydrocephalus in the appropriate clinical context, versus central volume loss. Few chronic lacunar infarcts. Political Geographer: ROHIT Transcribe Date/Time: Jul 02 2024 3:05P Dictated by : ADRIANNE ALEX MD This examination was interpreted and the report reviewed and electronically signed by: ADRIANNE ALEX MD on Jul 02 2024 3:16PM EST [id number] Normal [facility] CNOVSPon 06-20-2024 CNOVSP Visit (SP) Office (HEMAWS) ---- RONNIE LEE ([id number]) 1940 M Date Time Provider Department 06/20/24 9:40 AM STU [facility] During your visit today, we recorded the following information about you: Temperature Pulse Blood pressure Weight 96.9 degrees 82/minute 159/89 76 kg Height 1.77 m Stu Lloyd DO 06/20/2024 10:23 AM Signed Diagnosis: 1) CLL. HPI: The patient is an 83 yo male who has a h/o ischemic CM s/p dual chamber ICD 03/22. Was hospitalized for pneumonia 03/08-03/11/11. Was found to have elevated WBC count (labs not available). Repeat CBC via PCP's office 03/24/11: WBC=18.4K with 15K lymphs. Hgb=12.6 gm/dl and platelets 203K. Underwent right total hip replacement on 07/16/2017. Previous therapy: 1) Ibrutinib. On full dose he had dizziness but same time he was on higher dose carvedilol. Carvedilol dose was decreased ibrutinib was decreased to 1 capsule daily. Discontinued due to GI bleed. Presents for ongoing hematologic management. Interim history: Last seen in the fall 2022. He has no complaints today. No ED visits or hospitalizations since I last saw him. No unusual bleeding or unexplained bruising. PMH, medications and allergies personally reviewed by me today. Any changes documented in appropriate section. ROS: Constitutional: Appetite is normal. Neuro: Denies BECK. No symptoms of neuropathy. HEENT: No recent change in voice, vision or hearing. Resp: Denies cough, wheeze and hemoptysis. CVS: No complaints of chest pain, pressure or palpitation. Not short of breath at rest or with moderate activity. GI: No dysgeusia. No odynophagia or dysphagia. No nausea or vomiting. No diarrhea or change in bowel habits. Endo: No hot flashes. Derm: No rash. No episodes of jaundice or diffuse itch. MS: No MS pain. Heme: See above. Psych: Normal mood. PHYSICAL EXAM: Vitals: Blood pressure 159/89, pulse 82, temperature 36.1 ?C (96.9 ?F), temperature source Temporal, height 177 cm (5' 9.69), weight 76 kg (167 lb 8 oz), SpO2 100%. More frail-appearing and in no acute distress. EYES: Sclerae are anicteric bilaterally. LYMPHATIC: There is no palpable cervical, supraclavicular or axillary adenopathy. ABDOMEN: The abdomen is nondistended. Extremities: Free of edema. SKIN: No jaundice or rash. ASSESSMENT/PLAN: (C91.10) CLL (chronic lymphocytic leukemia) (HCC) (primary encounter diagnosis) Assessment: -Indication for therapy was progressive shortening of the doubling time. -Ibrutinib discontinued when he had to start apixaban for atrial fibrillation. He was also on Plavix. Had GI bleed. - Reviewed his recent CBC. Improving anemia. Lymphocyte count up a little bit but platelets remain normal and there is no indication to resume treatment. Discussed plan to follow him a little more closely determine lymphocyte doubling time. Plan every 3 month visits for about a year then perhaps every 6 months if things remain stable/slowly progressive. Plan: -OV with CBC in about 3 months. Portions of this documentation were copied and pasted from my previous office visit note dated 12/11/2022 in order to provide a cohesive continuity of the history. The note has been reviewed and edited and updated as necessary. I spent a total of 20 minutes on the date of the service which included preparing to see the patient, [id number] patient care, completing clinical documentation, obtaining and/or reviewing separately obtained history, performing a medically appropriate examination, counseling and educating the patient/family/pet care assistant, ordering medications, tests, or procedures, communicating with other HCPs (not separately reported), and communicating results to the patient/family/pet care assistant. Stu Lloyd DO Referring Provider: ZACHARY KENNEDY [[id number]] Allergies As of Date: 06/20/2024 Noted Allergy Reaction AVANDAMET (ROSIGLITAZONE-METF ORMI*04/18/2011 5 - Intolerance Comments: refuses IODINE 04/18/2011 10 - Anaphylaxis OXYCODONE 07/19/2017 8 - GI Upset 11 - Vomiting Comments: Dizziness PROMETHAZINE-CODEIN E 04/18/2011 5 - Intolerance Comments: Low BP, vomited Date Reviewed: 06/20/2024 Reviewed by: Jhon Huerta MA - Fully Assessed Reason for Visit: Established Patient [175] Primary Visit Diagnosis:CLL (chronic lymphocytic leukemia) ([facility]) [C91.10] Order(s):CONSULT TO HEMATOLOGY [9014] Order #: [id number]: 1 Follow-up and Disposition History for Encounter Date Provider Department Center 06/20/2024 [id number] [facility] Prescriptions as of 06/20/2024 - empagliflozin (JARDIANCE) 10 mg tablet Take 1 tablet by mouth daily with breakfast. - SITagliptin-metFORM IN (JANUMET) 50-1,000 mg per tablet Take 1 tablet in the morning and 1/2 tablet in the evening. - pantoprazole DR (PROTONIX) 40 mg tablet Take 1 tablet by mouth once daily. - (more content not included)... Normal [facility] 06-19-2024 [facility] Tele[facility] ([facility]) ---- RONNIE LEE ([id number]) 1940 M Date Time Provider Department 06/19/[address] [facility] During your visit today, we recorded the following information about you: Zachary Kennedy MD 06/19/2024 11:49 AM Signed His white count is up slightly. His sugars are very high. Has he missed any of his diabetic meds? Lorna Baca LPN 06/19/2024 12:37 PM Signed Patient reports that he eats a lot of cookies. believes that he is taking his medication and not missing any doses. When asked is she believes he would change his diet she says I don't know. Zachary Kennedy MD 06/19/2024 2:42 PM Signed Will need to add another med to the list. Add jardiance Check bmp in one month and follow up with one of us after. Gosia Ruff MA 06/20/2024 10:05 AM Signed Message left for return call. ELMIRA Nagel Kathryn, MA 06/23/2024 10:03 AM Signed Pt notified. Jayde Llamas MA Allergies As of Date: 06/19/2024 Noted Allergy Reaction AVANDAMET (ROSIGLITAZONE-METF ORMI*04/18/2011 5 - Intolerance Comments: refuses IODINE 04/18/2011 10 - Anaphylaxis OXYCODONE 07/19/2017 8 - GI Upset 11 - Vomiting Comments: Dizziness PROMETHAZINE-CODEIN E 04/18/2011 5 - Intolerance Comments: Low BP, vomited Date Reviewed: 06/17/2024 Reviewed by: Gosia Ruff MA - Fully Assessed Reason for Visit: Results [95] Order(s):empagliflo zin (JARDIANCE) 10 mg tabletTake 1 tablet by mouth daily with breakfast.Disp: 90 tabletRfl: 3 Prescriptions as of 06/23/2024 - empagliflozin (JARDIANCE) 10 mg tablet Take 1 tablet by mouth daily with breakfast. - SITagliptin-metFORM IN (JANUMET) 50-1,000 mg per tablet Take 1 tablet in the morning and 1/2 tablet in the evening. - pantoprazole DR (PROTONIX) 40 mg tablet Take 1 tablet by mouth once daily. - losartan (COZAAR) 50 mg tablet Take 50 mg by mouth once daily. - ferrous sulfate 325 mg (65 mg iron) tablet Take 325 mg by mouth every other day. - rosuvastatin (CRESTOR) 5 mg tablet Take 5 mg by mouth once daily. - OTC PRODUCT 1,000 mg twice daily. Tumeric complex - Lancets lancets Test blood sugar(s) 1 times daily. Dx: Type 2 DM - Controlled E11.9 Insulin: No - blood sugar diagnostic (BLOOD GLUCOSE TEST) test strip Test blood sugar(s) 1 times daily. Dx: Type 2 DM - Controlled E11.9 Insulin: No - sotalol (BETAPACE) 80 mg tablet Take 1 1/2 tablets by mouth twice daily. - apixaban (ELIQUIS) 5 mg tab(s) Take 5 mg by mouth twice daily. - cyanocobalamin (VITAMIN B-12) 1,000 mcg tab Take 1,000 mcg by mouth once daily. - VITAMIN B COMPLEX-100 ORAL Take 1 tablet by mouth once daily. - clopidogrel (PLAVIX) 75 mg tablet Take 75 mg by mouth once daily. - UBIDECARENONE (COQ-10 ORAL) Take 400 mg by mouth once daily. 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] 12/04/2018 06/17/2024 PAD (peripheral artery disease) (HCC) [I73.9] 07/28/2020 Stage 3 chronic kidney disease (HCC) [N18.30] 12/13/2020 ICD (implantable cardioverter-defibr illator) in*12/12/2021 Ischemic cardiomyopathy [I25.5] 12/12/2021 Platelets decreased (HCC) [D69.6] 07/04/2022 Acute combined systolic and diastolic heart jeramy*07/04/2022 Primary hypertension [I10] 07/19/2022 Gastrointestinal hemorrhage associated with int*08/15/2022 Anemia [D64.9] 09/04/2022 Diagnosed: 12/22/2022 Arthritis [M19.90] 12/22/2022 Diagnosed: 12/22/2022 Congestive heart failure (HCC) [I50.9] 12/22/2022 Diagnosed: 12/22/2022 Dyslipidemia [E78.5] 08/31/2021 Diagnosed: 12/22/2022 Encounter for immunization [Z23] 12/22/2022 12/22/2022 Diagnosed: 12/22/2022 Hearing loss [H91.90] 12/22/2022 Diagnosed: 12/22/2022 High thyroid stimulating hormone (TSH) level [R*12/22/2022 Diagnosed: 12/22/2022 Hip pain [M25.559] 12/22/2022 06/17/2024 Diagnosed: 12/22/2022 History of chronic lymphocytic leukemia [Z85.6] 12/22/2022 Diagnosed: 12/22/2022 History of repair of hip joint [Z98.890] 12/22/2022 Diagnosed: 12/22/2022 supervisor intermediates (current) use of anticoagulants [Z79.*12/22/2022 Diagnosed: 12/22/2022 Myocardial infarction (HCC) [I21.9] 12/22/2022 06/17/2024 Diagnosed: 12/22/2022 Osteoarthritis of hip [M16.9] 12/22/2022 Diagnosed: 12/22/2022 Paroxysmal ventricular tachycardia (HCC) [I47.2*12/22/2022 Diagnosed: 12/22/2022 Pneumonia (more content not included)... Normal [facility] 06-18-2024 [facility] Telephone ([facility]) ---- RONNIE LEE ([id number]) 1940 M Date Time Provider Department 06/18/24 STU LLOYD During your visit today, we recorded the following information about you: Judith Piedra 06/18/2024 7:58 AM Signed Please review and advise CONSULT TO HEMATOLOGY Status: Needs Scheduling Requested appt date: Authorizing: Zachary Kennedy MD in [facility] Referral: [id number] (Authorized) Expires: 06/17/2025 Priority: Routine Diagnosis: History of chronic lymphocytic leukemia [Z85.6] Comments Over due for follow up. Almita Rosas LPN 06/18/2024 9:06 AM Addendum Patient is known to Dr. Lloyd. Last OV was 12/11/2022. Dr. Lloyd- est simple or est complex OV? REG Streeter Paul A, DO 06/18/2024 9:11 AM Signed Sorry, when I looked at this encounter yesterday I noticed he had a CBC pending. It's partially resulted this morning. White count is not much higher. Regular office visit would be fine. DO Dale Buckley Naomi 06/18/2024 9:34 AM Signed Spoke w pt he is scheduled for 06/20. Bee Hunter Allergies As of Date: 06/18/2024 Noted Allergy Reaction AVANDAMET (ROSIGLITAZONE-METF ORMI*04/18/2011 5 - Intolerance Comments: refuses IODINE 04/18/2011 10 - Anaphylaxis OXYCODONE 07/19/2017 8 - GI Upset 11 - Vomiting Comments: Dizziness PROMETHAZINE-CODEIN E 04/18/2011 5 - Intolerance Comments: Low BP, vomited Date Reviewed: 06/17/2024 Reviewed by: Gosia Ruff MA - Fully Assessed Reason for Visit: Appointment [186] Prescriptions as of 06/18/2024 - SITagliptin-metFORM IN (JANUMET) 50-1,000 mg per tablet Take 1 tablet in the morning and 1/2 tablet in the evening. - pantoprazole DR (PROTONIX) 40 mg tablet Take 1 tablet by mouth once daily. - losartan (COZAAR) 50 mg tablet Take 50 mg by mouth once daily. - ferrous sulfate 325 mg (65 mg iron) tablet Take 325 mg by mouth every other day. - rosuvastatin (CRESTOR) 5 mg tablet Take 5 mg by mouth once daily. - OTC PRODUCT 1,000 mg twice daily. Tumeric complex - Lancets lancets Test blood sugar(s) 1 times daily. Dx: Type 2 DM - Controlled E11.9 Insulin: No - blood sugar diagnostic (BLOOD GLUCOSE TEST) test strip Test blood sugar(s) 1 times daily. Dx: Type 2 DM - Controlled E11.9 Insulin: No - sotalol (BETAPACE) 80 mg tablet Take 1 1/2 tablets by mouth twice daily. - apixaban (ELIQUIS) 5 mg tab(s) Take 5 mg by mouth twice daily. - cyanocobalamin (VITAMIN B-12) 1,000 mcg tab Take 1,000 mcg by mouth once daily. - VITAMIN B COMPLEX-100 ORAL Take 1 tablet by mouth once daily. - clopidogrel (PLAVIX) 75 mg tablet Take 75 mg by mouth once daily. - UBIDECARENONE (COQ-10 ORAL) Take 400 mg by mouth once daily. 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] 12/04/2018 06/17/2024 PAD (peripheral artery disease) (HCC) [I73.9] 07/28/2020 Stage 3 chronic kidney disease (HCC) [N18.30] 12/13/2020 ICD (implantable cardioverter-defibr illator) in*12/12/2021 Ischemic cardiomyopathy [I25.5] 12/12/2021 Platelets decreased (HCC) [D69.6] 07/04/2022 Acute combined systolic and diastolic heart jeramy*07/04/2022 Primary hypertension [I10] 07/19/2022 Gastrointestinal hemorrhage associated with int*08/15/2022 Anemia [D64.9] 09/04/2022 Diagnosed: 12/22/2022 Arthritis [M19.90] 12/22/2022 Diagnosed: 12/22/2022 Congestive heart failure (HCC) [I50.9] 12/22/2022 Diagnosed: 12/22/2022 Dyslipidemia [E78.5] 08/31/2021 Diagnosed: 12/22/2022 Encounter for immunization [Z23] 12/22/2022 12/22/2022 Diagnosed: 12/22/2022 Hearing loss [H91.90] 12/22/2022 Diagnosed: 12/22/2022 High thyroid stimulating hormone (TSH) level [R*12/22/2022 Diagnosed: 12/22/2022 Hip pain [M25.559] 12/22/2022 06/17/2024 Diagnosed: 12/22/2022 History of chronic lymphocytic leukemia [Z85.6] 12/22/2022 Diagnosed: 12/22/2022 History of repair of hip joint [Z98.890] 12/22/2022 Diagnosed: 12/22/2022 [facility] (current) use of anticoagulants [Z79.*12/22/2022 Diagnosed: 12/22/2022 Myocardial infarction (HCC) [I21.9] 12/22/2022 06/17/2024 Diagnosed: 12/22/2022 Osteoarthritis of hip [M16.9] 12/22/2022 Diagnosed: 12/22/2022 Paroxysmal ventricular tachycardia (HCC) [I47.2*12/22/2022 Diagnosed: 12/22/2022 Pneumonia [J18.9] 12/22/2022 06/17/2024 Diagnosed: 12/22/2022 Poisoning by vitamin (more content not included)... Normal [facility] CBC W Auto Differential pane l (Bld)on 06-17-2024 Basophils (Bld) [#/Vol] 0.00 10*3/uL Normal <0.11 [facility] Comment on above: Order Comment: Janis kaba Type: BLOOD SPECIMEN Ordering Facility: [facility] Address: [address] [place] [address] Performed By: #### 5 5454-3 #### [facility] CLIA [id number] [address] [place] [address] [place] [address] [place] Basophils/100 WBC (Bld) 0.0 % Normal [facility] Comment on above: Order Comment: Speci men Type: BLOOD SPECIMEN Ordering Facility: [facility] Address: [address] [place] [address] Performed By: #### 5 5454-3 #### [facility] CLIA [id number] [address] [place] [address] [place] Differential cell count method Nom (Bld) Manual Normal [facility] Comment on above: Order Comment: Speci men Type: BLOOD SPECIMEN Ordering Facility: [facility] Address: [address] [place] [address] Performed By: #### 5 5454-3 #### [facility] CLIA [id number] [address] [place] [address] [place] Eosinophils (Bld) [#/Vol] 0.00 10*3/uL Normal <0.46 [facility] Comment on above: Order Comment: Speci men Type: BLOOD SPECIMEN Ordering Facility: [facility] Address: [address] [place] [address] Performed By: #### 5 5454-3 #### [facility] CLIA [id number] [address] [place] [address] [place] Eosinophils/100 WBC (Bld) 0.0 % Normal [facility] Comment on above: Order Comment: Speci men Type: BLOOD SPECIMEN Ordering Facility: [facility] Address: [address] [place] [address] Performed By: #### 5 5454-3 #### [facility] CLIA [id number] [address] [place] [address] [place] Erythrocyte distribution width (RBC) [Ratio] 12.6 % Normal 11.5-15.0 [facility] Comment on above: Order Comment: Speci men Type: BLOOD SPECIMEN Ordering Facility: [facility] Address: [address] [place] [address] Performed By: #### 5 5454-3 #### [facility] CLIA [id number] [address] [place] [address] [place] Hematocrit (Bld) [Volume fraction] 39.4 % Normal 39.0-51.0 [facility] Comment on above: Order Comment: Speci men Type: BLOOD SPECIMEN Ordering Facility: [facility] Address: [address] [place] [address] Performed By: #### 5 5454-3 #### [facility] CLIA [id number] [address] [place] [address] [place] Hemoglobin (Bld) [Mass/Vol] 12.7 g/dL Low 13.0-17.0 [facility] Comment on above: Order Comment: Speci men Type: BLOOD SPECIMEN Ordering Facility: [facility] Address: [address] [place] [address] Performed By: #### 5 5454-3 #### [facility] CLIA [id number] [address] [place] [address] [place] Lymphocytes (Bld) [#/Vol] 5.64 10*3/uL High 1.00-4.00 [facility] Comment on above: Order Comment: Speci men Type: BLOOD SPECIMEN Ordering Facility: [facility] Address: [address] [place] [address] Performed By: #### 5 5454-3 #### [facility] CLIA [id number] [address] [place] [address] [place] Lymphocytes/100 WBC (Bld) 47.0 % Normal [facility] Comment on above: Order Comment: Speci men Type: BLOOD SPECIMEN Ordering Facility: [facility] Address: [address] [place] [address] Performed By: #### 5 5454-3 #### [facility] CLIA [id number] [address] [place] [address] [place] MCH (RBC) [Entitic mass] 28.7 pg Normal 26.0-34.0 [facility] Comment on above: Order Comment: Speci men Type: BLOOD SPECIMEN Ordering Facility: [facility] Address: [address] [place] [address] Performed By: #### 5 5454-3 #### [facility] CLIA [id number] [address] [place] [address] [place] MCHC (RBC) [Mass/Vol] 32.2 g/dL Normal 30.5-36.0 [facility] Comment on above: Order Comment: Speci men Type: BLOOD SPECIMEN Ordering Facility: [facility] Address: [address] [place] [address] Performed By: #### 5 5454-3 #### [facility] CLIA [id number] [address] [place] [address] [place] MCV (RBC) [Entitic vol] 89.1 fL Normal 80.0-100.0 [facility] Comment on above: Order Comment: Speci men Type: BLOOD SPECIMEN Ordering Facility: [facility] Address: [address] [place] [address] Performed By: #### 5 5454-3 #### [facility] CLIA [id number] [address] [place] [address] [place] Monocytes (Bld) [#/Vol] 0.84 10*3/uL Normal <0.87 [facility] Comment on above: Order Comment: Speci men Type: BLOOD SPECIMEN Ordering Facility: [facility] Address: [address] [place] [address] Performed By: #### 5 5454-3 #### [facility] CLIA [id number] [address] [place] [address] [place] Monocytes/100 WBC (Bld) 7.0 % Normal [facility] Comment on above: Order Comment: Speci men Type: BLOOD SPECIMEN Ordering Facility: [facility] Address: [address] [place] [address] Performed By: #### 5 5454-3 #### [facility] CLIA [id number] [address] [place] [address] [place] Neutrophils (Bld) [#/Vol] 5.52 10*3/uL Normal 1.45-7.50 [facility] Comment on above: Order Comment: Speci men Type: BLOOD SPECIMEN Ordering Facility: [facility] Address: [address] [place] [address] Performed By: #### 5 5454-3 #### [facility] CLIA [id number] [address] [place] [address] [place] Neutrophils/100 WBC (Bld) 46.0 % Normal [facility] Comment on above: Order Comment: Speci men Type: BLOOD SPECIMEN Ordering Facility: [facility] Address: [address] [place] [address] Performed By: #### 5 5454-3 #### [facility] CLIA [id number] [address] [place] [address] [place] Nucleated RBC (Bld) [#/Vol] 10*3/uL Normal <0.01 [facility] Comment on above: Order Comment: Speci men Type: BLOOD SPECIMEN Ordering Facility: [facility] Address: [address] [place] [address] Performed By: #### 5 5454-3 #### [facility] CLIA [id number] [address] [place] [address] [place] Nucleated RBC/100 WBC (Bld) [Ratio] 0.0 /100 WBC Normal [facility] Comment on above: Order Comment: Speci men Type: BLOOD SPECIMEN Ordering Facility: [facility] Address: [address] [place] [address] Performed By: #### 5 5454-3 #### [facility] CLIA [id number] [address] [place] [address] [place] Ovalocytes LM Ql (Bld) Few Normal [facility] Comment on above: Order Comment: Speci men Type: BLOOD SPECIMEN Ordering Facility: [facility] Address: [address] [place] [address] Performed By: #### 5 5454-3 #### [facility] CLIA [id number] [address] [place] [address] [place] Platelet clump LM Ql (Bld) Present Normal [facility] Comment on above: Order Comment: Speci men Type: BLOOD SPECIMEN Ordering Facility: [facility] Address: [address] [place] [address] Performed By: #### 5 5454-3 #### [facility] CLIA [id number] [address] [place] [address] [place] Platelet mean volume (Bld) [Entitic vol] 11.4 fL Normal 9.0-12.7 [facility] Comment on above: Order Comment: Speci men Type: BLOOD SPECIMEN Ordering Facility: [facility] Address: [address] [place] [address] Performed By: #### 5 5454-3 #### [facility] CLIA [id number] [address] [place] [address] [place] Platelets (Bld) [#/Vol] 191 10*3/uL Normal 150-400 [facility] Comment on above: Order Comment: Speci men Type: BLOOD SPECIMEN Ordering Facility: [facility] Address: [address] [place] [address] Performed By: #### 5 5454-3 #### [facility] CLIA [id number] [address] [place] [address] [place] Platelets Estimate (Bld) [#/Vol] Adequate Normal [facility] Comment on above: Order Comment: Speci men Type: BLOOD SPECIMEN Ordering Facility: [facility] Address: [address] [place] [address] Performed By: #### 5 5454-3 #### [facility] CLIA [id number] [address] [place] [address] [place] RBC (Bld) [#/Vol] 4.42 10*6/uL Normal 4.20-6.00 [facility] Comment on above: Order Comment: Janis kaba Type: BLOOD SPECIMEN Ordering Facility: [facility] Address: [address] [place] [address] Performed By: #### 5 5454-3 #### [facility] CLIA [id number] [address] [place] [address] [place] RED CELL MORPH Reviewed: see results of individual morphologies Normal [facility] Comment on above: Order Comment: Speci men Type: BLOOD SPECIMEN Ordering Facility: [facility] Address: [address] [place] [address] Performed By: #### 5 5454-3 #### [facility] CLIA [id number] [address] [place] [address] [place] WBC (Bld) [#/Vol] 12.00 10*3/uL High 3.70-11.00 [facility] Comment on above: Order Comment: Janis kaba Type: BLOOD SPECIMEN Ordering Facility: [facility] Address: [address] [place] [address] Performed By: #### 5 5454-3 #### [facility] CLIA [id number] [address] [place] [address] [place] CNOVon 06-17-2024 CNOV Office Visit (JEANINEPWS) ---- RONNIE LEE ([id number]) 1940 M Date Time Provider Department 06/17/24 2:20 PM ZACHARY KENNEDY FAMPWS During your visit today, we recorded the following information about you: Pulse Blood pressure Weight Height 92/minute 118/64 77.1 kg 1.829 m Zachary Kennedy MD 06/17/2024 3:18 PM Signed Patient presents with: 6 Month Exam HPI: Patient presents today for office visit for routine 6 month follow up. [facility] he believes in the fall. Has had three falls in the last six months. Most recent was last week. He doesn't remember how or why he fell. States I just fell. Did not hit his head on the last one. No loc. states it happened in the kitchen. Has visible bruising and abrasion to his left eye. Did fall and hit the ground a number of weeks ago. Is resolving. No loc. No headache. No focal numbness or weakness. Denies dizziness. States he feels unsteady on his feet. Has a hx of tremor and did have a cva apparently in [place] in 2022. Does not use any ambulatory devices. Discussed considering more therapy or evaluation. Discussed risks of falls particularly with him being on anticoagulants. He feels his memory is bad No issues controlling his urine. Has a tremor. Unsure if getting worse. HTN: Does not monitor BP at home Denies chest pain and shortness of breath No palpitations. No syncope. Follows with cardiology. DM: Does not check his sugars at home Does not watch what he eats Due for A1c GERD: Symptoms controlled HLD: No myalgias Follows with vascular surgery. He missed his last appts in hematology and did not follow up. Sees [facility]. Note was copied and pasted, without alteration from: my last ov here with me in #: Followed by Cardiology. Last OV with [facility] 12/14/22. No chest pain or shortness of breath. No edema. Still seeing Dr. Lloyd. No longer taking Inbruvica. In remission. No longer wearing compression stockings. Still with some swelling right leg is not new. No redness or warmth. DM: Checks sugars occ. Not every day Last A1c 5.8 No vision changes. Sees Ophthalmology yearly. Endo has not checked his sugar. Lipids are stable. Just had microalbumin done at [facility] and labs. Blood counts improving. No further bleeding issue MEDICATIONS: Current Outpatient Medications Medication Sig SITagliptin-metFORM IN (JANUMET) 50-1,000 mg per tablet Take 1 tablet in the morning and 1/2 tablet in the evening. pantoprazole DR (PROTONIX) 40 mg tablet Take 1 tablet by mouth once daily. losartan (COZAAR) 50 mg tablet Take 50 mg by mouth once daily. ferrous sulfate 325 mg (65 mg iron) tablet Take 325 mg by mouth every other day. rosuvastatin (CRESTOR) 5 mg tablet Take 5 mg by mouth once daily. OTC PRODUCT 1,000 mg twice daily. Tumeric complex Lancets lancets Test blood sugar(s) 1 times daily. Dx: Type 2 DM - Controlled E11.9 Insulin: No blood sugar diagnostic (BLOOD GLUCOSE TEST) test strip Test blood sugar(s) 1 times daily. Dx: Type 2 DM - Controlled E11.9 Insulin: No sotalol (BETAPACE) 80 mg tablet Take 1 1/2 tablets by mouth twice daily. apixaban (ELIQUIS) 5 mg tab(s) Take 5 mg by mouth twice daily. cyanocobalamin (VITAMIN B-12) 1,000 mcg tab Take 1,000 mcg by mouth once daily. VITAMIN B COMPLEX-100 ORAL Take 1 tablet by mouth once daily. clopidogrel (PLAVIX) 75 mg tablet Take 75 mg by mouth once daily. UBIDECARENONE (COQ-10 ORAL) Take 400 mg by mouth once daily. No current facility-administer ed medications for this visit. 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 Hyperlipidemia Impacted cerumen TN (myocardial infarction) ([facility]) '93, ', '03, '04 Pneumonia 03/08/2011 PAST SURGICAL HISTORY Procedure Laterality Date ANGIOPLASTY 02/2004 with stents ARTHRP ACETBLR/PROX FEM PROSTC AGRFT/ALGRFT Right CABG (2) VEIN GRAFTS AND ARTERIAL GRAFT(S 09/09/1997 COLONOSCOPY 07/26/2022 COLONOSCOPY SCREENING 08/09/2022 Dr Du CORONARY ARTERY DILATION 03/12/2010 3 stents EGD 07/26/2022 IMPLANTABLE CARDIOVERTER DEFIBRILLATOR 09/05/2010 duel chamber REMV CATARACT EXTRACAP,INSERT LENS Bilateral FAMILY HISTORY Problem Relation Age of Onset Heart Father Cancer Mother Diabetes Sister Diabetes Other Diabetes Other Diabetes Daughter prediabetic Social History Tobacco Use Smoking status: Never (more content not included)... Normal [facility] CNPNon 06-17-2024 [facility] RONNIE LEE ([id number]) 1940 M Date Time Provider Department 06/17/24 [facility] During your visit today, we recorded the following information about you: Michelle Marrero 06/17/2024 3:38 PM Signed Please review and schedule as appropriate. Joanie Chisholm LPN 06/17/2024 3:[address] Kennedy today. Previous pt here of Dr Lloyd for [facility] in [place] Last apt in this dept was 12/11/22 Would like follow up. What type of apt slot would you like the schedulers to use? REG Malik Melanie, LPN 06/18/2024 9:12 AM Signed Addressed in another encounter. Almita Rosas LPN Allergies As of Date: 06/17/2024 Noted Allergy Reaction AVANDAMET (ROSIGLITAZONE-METF ORMI*04/18/2011 5 - Intolerance Comments: refuses IODINE 04/18/2011 10 - Anaphylaxis OXYCODONE 07/19/2017 8 - GI Upset 11 - Vomiting Comments: Dizziness PROMETHAZINE-CODEIN E 04/18/2011 5 - Intolerance Comments: Low BP, vomited Date Reviewed: 06/17/2024 Reviewed by: Gosia Ruff MA - Fully Assessed Reason for Visit: Consult [502] Prescriptions as of 06/18/2024 - SITagliptin-metFORM IN (JANUMET) 50-1,000 mg per tablet Take 1 tablet in the morning and 1/2 tablet in the evening. - pantoprazole DR (PROTONIX) 40 mg tablet Take 1 tablet by mouth once daily. - losartan (COZAAR) 50 mg tablet Take 50 mg by mouth once daily. - ferrous sulfate 325 mg (65 mg iron) tablet Take 325 mg by mouth every other day. - rosuvastatin (CRESTOR) 5 mg tablet Take 5 mg by mouth once daily. - OTC PRODUCT 1,000 mg twice daily. Tumeric complex - Lancets lancets Test blood sugar(s) 1 times daily. Dx: Type 2 DM - Controlled E11.9 Insulin: No - blood sugar diagnostic (BLOOD GLUCOSE TEST) test strip Test blood sugar(s) 1 times daily. Dx: Type 2 DM - Controlled E11.9 Insulin: No - sotalol (BETAPACE) 80 mg tablet Take 1 1/2 tablets by mouth twice daily. - apixaban (ELIQUIS) 5 mg tab(s) Take 5 mg by mouth twice daily. - cyanocobalamin (VITAMIN B-12) 1,000 mcg tab Take 1,000 mcg by mouth once daily. - VITAMIN B COMPLEX-100 ORAL Take 1 tablet by mouth once daily. - clopidogrel (PLAVIX) 75 mg tablet Take 75 mg by mouth once daily. - UBIDECARENONE (COQ-10 ORAL) Take 400 mg by mouth once daily. 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] 12/04/2018 06/17/2024 PAD (peripheral artery disease) (HCC) [I73.9] 07/28/2020 Stage 3 chronic kidney disease (HCC) [N18.30] 12/13/2020 ICD (implantable cardioverter-defibr illator) in*12/12/2021 Ischemic cardiomyopathy [I25.5] 12/12/2021 Platelets decreased (HCC) [D69.6] 07/04/2022 Acute combined systolic and diastolic heart jeramy*07/04/2022 Primary hypertension [I10] 07/19/2022 Gastrointestinal hemorrhage associated with int*08/15/2022 Anemia [D64.9] 09/04/2022 Diagnosed: 12/22/2022 Arthritis [M19.90] 12/22/2022 Diagnosed: 12/22/2022 Congestive heart failure (HCC) [I50.9] 12/22/2022 Diagnosed: 12/22/2022 Dyslipidemia [E78.5] 08/31/2021 Diagnosed: 12/22/2022 Encounter for immunization [Z23] 12/22/2022 12/22/2022 Diagnosed: 12/22/2022 Hearing loss [H91.90] 12/22/2022 Diagnosed: 12/22/2022 High thyroid stimulating hormone (TSH) level [R*12/22/2022 Diagnosed: 12/22/2022 Hip pain [M25.559] 12/22/2022 06/17/2024 Diagnosed: 12/22/2022 History of chronic lymphocytic leukemia [Z85.6] 12/22/2022 Diagnosed: 12/22/2022 History of repair of hip joint [Z98.890] 12/22/2022 Diagnosed: 12/22/2022 [facility] (current) use of anticoagulants [Z79.*12/22/2022 Diagnosed: 12/22/2022 Myocardial infarction (HCC) [I21.9] 12/22/2022 06/17/2024 Diagnosed: 12/22/2022 Osteoarthritis of hip [M16.9] 12/22/2022 Diagnosed: 12/22/2022 Paroxysmal ventricular tachycardia (HCC) [I47.2*12/22/2022 Diagnosed: 12/22/2022 Pneumonia [J18.9] 12/22/2022 06/17/2024 Diagnosed: 12/22/2022 Poisoning by vitamin D [T45.2X1A] 12/22/2022 12/22/2022 Diagnosed: 12/22/2022 Recurrent coronary arteriosclerosis after percu*12/22/2022 Diagnosed: 12/22/2022 Sensorineural hearing loss (SNHL) of both ears *12/22/2022 Diagnosed: 12/22/2022 Underweight [R63.6] 12/22/2022 06/17/2024 Diagnosed: 12/22/2022 Vitamin D deficiency [E55.9] 12/22/2022 12/22/2022 Diagnosed: 12/22/2022 Chronic ischemic left anterior cerebral ar (more content not included)... Normal [facility] Comprehensive metabolic 2000 panelon 06-17-2024 Albumin [Mass/Vol] 4.2 g/dL Normal 3.9-4.9 [facility] Comment on above: Order Comment: Speci men Type: BLOOD SPECIMENOrdering Facility: [facility] Address: [address] [place] [address] Performed By: #### 3 016-3, 32537-1, 29215-2 ####[facility]ORATORYCLIA [id number] [place] [address] [place] ALP [Catalytic activity/Vol] 95 U/L Normal 38-113 [facility] Comment on above: Order Comment: Speci men Type: BLOOD SPECIMENOrdering Facility: [facility] Address: [address] [place] [address] Performed By: #### 3 016-3, 12200-9, 58183-0 ####[facility]ATORYCLIA [id number] [place] [id number] [place] ALT [Catalytic activity/Vol] 10 U/L Normal 10-54 [facility] Comment on above: Order Comment: Speci men Type: BLOOD SPECIMENOrdering Facility: [facility] Address: [address] [place] [address] Performed By: #### 3 016-3, 08637-4, 49939-1 ####[facility]ORATORYCLIA [id number] [place] [id number] [place] Anion gap [Moles/Vol] 15 mmol/L Normal 8-15 [facility] Comment on above: Order Comment: Speci men Type: BLOOD SPECIMENOrdering Facility: [facility] Address: [address] [place] [address] Performed By: #### 3 016-3, 17654-7, 09627-7 ####[facility]ATORYCLIA [id number] [place] [address] [place] AST [Catalytic activity/Vol] 17 U/L Normal 14-40 [facility] Comment on above: Order Comment: Speci men Type: BLOOD SPECIMENOrdering Facility: [facility] Address: [address] [place] [address] Performed By: #### 3 016-3, 63575-2, 73324-9 ####[facility]ORATORYCLIA [id number] [place] [address] [place] Bilirubin [Mass/Vol] 0.4 mg/dL Normal 0.2-1.3 [facility] Comment on above: Order Comment: Speci men Type: BLOOD SPECIMENOrdering Facility: [facility] Address: [address] [place] [address] Performed By: #### 3 016-3, 89014-0, 95239-0 ####[facility]ORATORYCLIA [id number] [place] [address] [place] Calcium [Mass/Vol] 9.3 mg/dL Normal 8.5-10.2 [facility] Comment on above: Order Comment: Speci men Type: BLOOD SPECIMENOrdering Facility: [facility] Address: [address] [place] [address] Performed By: #### 3 016-3, 83653-7, 73004-8 ####[facility]ATORYCLIA [id number] [place] [address] [place] Chloride [Moles/Vol] 98 mmol/L Normal 98-107 [facility] Comment on above: Order Comment: Speci men Type: BLOOD SPECIMENOrdering Facility: [facility] Address: [address] [place] [address] Performed By: #### 3 016-3, 23319-7, 42064-0 ####[facility]ATORYCLIA [id number] [place] [address] [place] CO2 [Moles/Vol] 22 mmol/L Normal 22-30 [facility] Comment on above: Order Comment: Speci men Type: BLOOD SPECIMENOrdering Facility: [facility] Address: [address] [place] [address] Performed By: #### 3 016-3, 02278-6, 25586-3 ####[facility]ATORYCLIA [id number] [place] [address] [place] Creatinine [Mass/Vol] 1.32 mg/dL High 0.73-1.22 [facility] Comment on above: Order Comment: Speci men Type: BLOOD SPECIMENOrdering Facility: [facility] Address: [address] [place] [address] Performed By: #### 3 016-3, 85488-4, 51219-8 ####[facility]ORATORYCLIA [id number] [address] [place] Creatinine and Glomerular filtration rate.predicted panel (S/P/Bld) 53 mL/min/1.73m??? Low >=60 [facility] Comment on above: Order Comment: Speci men Type: BLOOD SPECIMENOrdering Facility: [facility] Address: [address] [place] [address] Result Comment: [place] mated Glomerular Filtration Rate (eGFR) is calculated using the 2020 CKD-EPI creatinine equation. This equation utilizes serum creatinine, sex, and age as parameters. The creatinine assay has traceable calibration to isotope dilution-mass spectrometry. Refer to KDIGO guidelines for clinical interpretation. In patients with unstable renal function, e.g. those with acute kidney injury, the eGFR may not accurately reflect actual GFR. Performed By: #### 3 016-3, 67037-1, 73852-7 ####[facility]ORATORYCLIA [id number] [place] [address] [place] Glucose [Mass/Vol] 418 mg/dL High 74-99 [facility] Comment on above: Order Comment: Speci men Type: BLOOD SPECIMENOrdering Facility: [facility] Address: [address] [place] [address] Result Comment: The [place] Diabetes Association (ADA) provides guidance for cutoff values for fasting glucose and random glucose. The ADA defines fasting as no caloric intake for at least 8 hours. Fasting plasma glucose results between 100 to 125 mg/dL indicate increased risk for diabetes (prediabetes). Fasting plasma glucose results greater than or equal to 126 mg/dL meet the criteria for diagnosis of diabetes. In the absence of unequivocal hyperglycemia, results should be confirmed by repeat testing. In a patient with classic symptoms of hyperglycemia or hyperglycemic crisis, random plasma glucose results greater than or equal to 200 mg/dL meet the criteria for diagnosis of diabetes. Reference: Standards of Medical Care in Diabetes 2016, [place] Diabetes Association. Diabetes Care. 2016.39(Suppl 1). Performed By: #### 3 016-3, 01949-6, 78558-1 ####[facility]ORATORYCLIA [id number] [place] [address] [place] Potassium [Moles/Vol] 4.8 mmol/L Normal 3.7-5.1 [facility] Comment on above: Order Comment: Speci men Type: BLOOD SPECIMENOrdering Facility: [facility] Address: [address] [place] [address] Performed By: #### 3 016-3, 32513-2, 42363-6 ####[facility]ORATORYCLIA [id number] [place] [address] [place] Protein [Mass/Vol] 7.4 g/dL Normal 6.3-8.0 [facility] Comment on above: Order Comment: Speci men Type: BLOOD SPECIMENOrdering Facility: [facility] Address: [address] [place] [address] Performed By: #### 3 016-3, 54502-4, 41066-6 ####[facility]ORATORYCLIA [id number] [place] [address] [place] Sodium [Moles/Vol] 135 mmol/L Low 136-144 [facility] Comment on above: Order Comment: Speci men Type: BLOOD SPECIMENOrdering Facility: [facility] Address: [address] [place] [address] Performed By: #### 3 016-3, 14635-1, 41207-5 ####[facility] LABORATORYCLIA [id number] [place] [address] [place] Urea nitrogen [Mass/Vol] 20 mg/dL Normal 9-24 [facility] Comment on above: Order Comment: Speci men Type: BLOOD SPECIMENOrdering Facility: [facility] Address: [address] [place] [address] Performed By: #### 3 016-3, 79054-6, 82551-2 ####[facility] LABORATORYCLIA [id number] [place] [address] [place] Folate SerPl-mCncon 06-18-19 25 Folate [Mass/Vol] 13.6 ng/mL Normal >4.7 [facility] Comment on above: Order Comment: Francoisei men Type: BLOOD SPECIMEN [facility] Address: [address] [place] [address] Performed By: #### 5 5454-3 #### [facility] CLIA [id number] [address] [place] [address] [place] HbA1c (Bld)on 06-17-2024 Average glucose Estimated from glycated hemoglobin (Bld) [Mass/Vol] 226 mg/dL Normal [facility] Comment on above: Order Comment: Speci men Type: BLOOD SPECIMEN [facility] Address: [address] [place] [address] Result Comment: eAG: (Estimated average glucose) is a calculated value from HgbA1c and is personal financial representative of the average blood glucose level in the last 2-3 month period. Performed By: #### 5 5454-3 #### [facility] CLIA [id number] [address] [place] [address] [place] HbA1c (Bld) [Mass fraction] 9.5 % High 4.3-5.6 [facility] Comment on above: Order Comment: Speci men Type: BLOOD SPECIMEN [facility] Address: [address] [place] [address] Result Comment: [place] Diabetes Association guidelines indicate that patients with HgbA1c in the range 5.7-6.4% are at increased risk for development of diabetes, and intervention by lifestyle modification may be beneficial. HgbA1c greater or equal to 6.5% is considered diagnostic of diabetes. Performed By: #### 5 5454-3 #### [facility] CLIA [id number] [address] [place] [address] [place] Iron and Iron binding capaci ty panelon 06-17-2024 Iron [Mass/Vol] 103 ug/dL Normal 41-186 [facility] Comment on above: Order Comment: Speci men Type: BLOOD SPECIMENOrdering Facility: [facility] Address: [address] [place] [address] Performed By: #### 3 016-3, 18264-7, 48652-8 ####[facility]ORATORYCLIA [id number] [place] [address] [place] Iron binding capacity [Mass/Vol] 348 ug/dL Normal 232-386 [facility] Comment on above: Order Comment: Speci men Type: BLOOD SPECIMENOrdering Facility: [facility] Address: [address] [place] [address] Performed By: #### 3 016-3, 18521-4, 45645-6 ####[facility]ORATORYCLIA [id number] [place] [address] [place] Iron/TIBC [Molar ratio] 29.6 % Normal 15.0-57.0 [facility] Comment on above: Order Comment: Speci men Type: BLOOD SPECIMENOrdering Facility: [facility] Address: [address] [place] [address] Performed By: #### 3 016-3, 53227-1, 88979-5 ####[facility] LABORATORYCLIA [id number] [place] [address] [place] Reagin and Treponema pallidu m IgG and IgM [Interp]on 06-17-2024 T. pallidum IgG+IgM IA Ql (S) Non-Reactive Normal Nonreactive [facility] Comment on above: Order Comment: Speci men Type: BLOOD SPECIMENOrdering Facility: [facility] Address: [address] [place] [address] Performed By: #### 7 3752-8 ####[facility] LABCLIA [id number] [place] [address] [place] Reagin+T pallidum IgG+IgM Se rPl-Impon 06-17-2024 Reagin and Treponema pallidum IgG and IgM [Interp] Cannot exclude recent Treponemal infection if specimen collected within 7-10 days after appearance of suspect lesions or 2-3 weeks after an exposure. Clinical correlation is required. Normal [facility] Comment on above: Order Comment: Speci men Type: BLOOD SPECIMENOrdering Facility: [facility] Address: [address] [place] [address] Performed By: #### 7 3752-8 ####[facility] LABCLIA [id number] [place] [address] [place] TSH SerPl-aCncon 06-17-2024 TSH Qn 2.450 m[IU]/L Normal 0.270-4.200 [facility] Comment on above: Order Comment: Speci men Type: BLOOD SPECIMENOrdering Facility: [facility] Address: [address] [place] [address] Performed By: #### 3 016-3, 12192-5, 07650-3 ####[facility] LABORATORYCLIA [id number] [place] [address] [place] Vit B12 SerPl-mCncon 025 Cobalamin (Vitamin B12) [Mass/Vol] 930 pg/mL Normal 232-1245 [facility] Comment on above: Order Comment: Speci men Type: BLOOD SPECIMEN [facility] Address: [address] [place] [address] Performed By: #### 5 5454-3 #### [facility] CLIA [id number] [address] [place] [id number] [facility] ---- RONNIE LEE ([id number]) 1940 M Date Time Provider Department 12/19/23 [facility] During your visit today, we recorded the following information about you: Ya Morel APRN.ERIC 12/19/2023 8:48 AM Signed Can please let patient know that I received his labs. His diabetes is worse. Is he still following with Dr. Hernandes from endocrinology? It is affecting his kidney function. It looks like Dr. Santiago is managing his diabetic medication. If so, can we please fax his labwork to endocrinology, as his medications will likely need to be adjusted. Ya Morel APRN.Escobar Hurley LPN 12/19/2023 1:39 PM Signed TC to pt, spoke /c pt , Marisol, notified of results. Marisol states pt still follows with Dr. Blackwell. Results faxed to Dr. Blackwell's office. REG El Christy, APRN.CNP 12/21/2023 9:00 AM Signed Received notification from Dr. Hernandes that patient is no longer following with her and hasn't been seen there since 08/2022. Lets have him go ahead and increase the janumet to a whole tablet in the morning and a 1/2 tablet in the evening. He'll need a repeat A1C in [address] Hernandes's office did say that if he wanted to return there, to please call their office. Ya Morel APRN.Courtney Ramon LPN 12/21/2023 9:28 AM Signed Phoned patient and spoke with his Marisol and reviewed message with her. She repeated orders and agreeable and voiced understanding. Courtney Coombs LPN Allergies As of Date: 12/19/2023 Noted Allergy Reaction AVANDAMET (ROSIGLITAZONE-METF ORMI*04/18/2011 5 - Intolerance Comments: refuses IODINE 04/18/2011 10 - Anaphylaxis OXYCODONE 07/19/2017 8 - GI Upset 11 - Vomiting Comments: Dizziness PROMETHAZINE-CODEIN E 04/18/2011 5 - Intolerance Comments: Low BP, vomited Date Reviewed: 12/18/2023 Reviewed by: Escobar Thomas LPN - Fully Assessed Reason for Visit: Results [95] Primary Visit Diagnosis:Type 2 diabetes mellitus with stage 2 chronic kidney disease, without long-term current use of insulin (HCC) (HCC) [E11.22, N18.2] Order(s):SITaglipti n-metFORMIN (JANUMET) 50-1,000 mg per tabletTake 1 tablet in the morning and 1/2 tablet in the evening.Disp: 45 tabletRfl: 2 HEMOGLOBIN A1C [[id number]] Order #: [id number] FUTURE Prescriptions as of 12/21/2023 - SITagliptin-metFORM IN (JANUMET) 50-1,000 mg per tablet Take 1 tablet in the morning and 1/2 tablet in the evening. - pantoprazole DR (PROTONIX) 40 mg tablet Take 1 tablet by mouth once daily. - losartan (COZAAR) 50 mg tablet Take 50 mg by mouth once daily. - ferrous sulfate 325 mg (65 mg iron) tablet Take 325 mg by mouth every other day. - rosuvastatin (CRESTOR) 5 mg tablet Take 5 mg by mouth once daily. - OTC PRODUCT 1,000 mg twice daily. Tumeric complex - Lancets lancets Test blood sugar(s) 1 times daily. Dx: Type 2 DM - Controlled E11.9 Insulin: No - blood sugar diagnostic (BLOOD GLUCOSE TEST) test strip Test blood sugar(s) 1 times daily. Dx: Type 2 DM - Controlled E11.9 Insulin: No - sotalol (BETAPACE) 80 mg tablet Take 1 1/2 tablets by mouth twice daily. - apixaban (ELIQUIS) 5 mg tab(s) Take 5 mg by mouth twice daily. - cyanocobalamin (VITAMIN B-12) 1,000 mcg tab Take 1,000 mcg by mouth once daily. - VITAMIN B COMPLEX-100 ORAL Take 1 tablet by mouth once daily. - clopidogrel (PLAVIX) 75 mg tablet Take 75 mg by mouth once daily. - UBIDECARENONE (COQ-10 ORAL) Take 400 mg by mouth once daily. Problem List As Of Date 12/19/2023 Noted Resolved Lymphocytosis (symptomatic) [D72.820] 04/18/2011 09/25/2016 CLL (chronic lymphocytic leukemia) (HCC) [C91.1*05/12/2011 Chronic atrial fibrillation (HCC) [I48.20] 12/02/2018 GERD without esophagitis [K21.9] 12/02/2018 Mixed hyperlipidemia [E78.2] 12/02/2018 Coronary artery disease due to lipid rich plaqu*12/02/2018 Status post coronary artery stent placement [Z9*12/02/2018 Type 2 diabetes mellitus with chronic kidney di*12/02/2018 Iron deficiency anemia due to chronic blood los*12/04/2018 Iron malabsorption [K90.9] 12/04/2018 PAD (peripheral artery disease) (HCC) [I73.9] 07/28/2020 Stage 3 chronic kidney disease (HCC) [N18.30] 12/13/2020 ICD (implantable cardioverter-defibr illator) in*12/12/2021 Ischemic cardiomyopathy [I25.5] 12/12/2021 Platelets decreased (HCC) [D69.6] 07/04/2022 Acute combined systolic and diastolic heart jeramy*07/04/2022 Primary hypertension [I10] 07/19/2022 Gastrointestinal hemorrhage associated with int*08/15/2022 Anemia [D64.9] 09/04/2022 Diagnosed: 12/22/2022 Arthritis [M19.90] 12/22/2022 Diagnosed: 12/22/2022 Congestive heart failure (HCC) [I50.9] 12/22/2022 Diagnosed: 12/22/2022 Dyslipidemia [E78.5] 08/31/2021 Diagnosed: 12/22/2022 Encounter for immunization [Z23] 12/22/2022 12/22/2022 Diagnosed: 12/22/2022 (more content not included)... Normal [facility] ALBUMIN/CREATININE RATIO, UR INEon 12-18-2023 Albumin DL <= 20 mg/L (U) [Mass/Vol] 146.2 mg/L [facility] Albumin/Creatinine (U) [Mass ratio] 96 mg/g High NINF - 30 mg/g [facility] Comment on above: Adult Male and Femal e Nephrotic Criteria: <30 mg/g is considered normal to mildly increased 30-300 mg/g is considered moderately increased >300 mg/g is considered severely increased KDIGO. (2013). KDIGO 2012 Clinical Practice Guideline for the Evaluation and Management of Chronic Kidney Disease. Official Journal of the International Society of Nephrology, 3(1), 1-150. Creatinine (U) [Mass/Vol] 152.2 mg/dL 20.0 - 300.0 mg/dL [facility] Interpretation and review of laboratory results Abnormal [facility] Albumin DL <= 20 mg/L (U) [Mass/Vol] 146.2 mg/L Normal [facility] Comment on above: Order Comment: Speci men Type: URINE SPECIMENOrdering Facility: [facility] Address: [address] [place] [address] Performed By: #### U ACR ####[facility] [id number] [place] [address] [place] Albumin/Creatinine (U) [Mass ratio] 96 mg/g High <30 [facility] Comment on above: Order Comment: Speci men Type: URINE SPECIMENOrdering Facility: [facility] Address: [address] [place] [address] Result Comment: Adul t Male and Female Nephrotic Criteria: <30 mg/g is considered normal to mildly increased 30-300 mg/g is considered moderately increased >300 mg/g is considered severely increased KDIGO. (2013). KDIGO 2012 Clinical Practice Guideline for the Evaluation and Management of Chronic Kidney Disease. Official Journal of the International Society of Nephrology, 3(1), 1-150. Performed By: #### U ACR ####[facility] [id number] [address] [place] Creatinine (U) [Mass/Vol] 152.2 mg/dL Normal 20.0-300.0 [facility] Comment on above: Order Comment: Speci men Type: URINE SPECIMENOrdering Facility: [facility] Address: [address] [place] [address] Performed By: #### U ACR ####[facility] [id number] [address] [place] CBC W Auto Differential pane l (Bld)on 12-18-2023 Basophils (Bld) [#/Vol] [facility] Basophils/100 WBC (Bld) 0.2 % [facility] Differential cell count method Nom (Bld) Auto [facility] Eosinophils (Bld) [#/Vol] 0.11 10*3/uL [facility] Eosinophils/100 WBC (Bld) 1.1 % [facility] Erythrocyte distribution width (RBC) [Ratio] 13.0 % 11.5 - 15.0 % [facility] Hematocrit (Bld) [Volume fraction] 36.7 % Low 39.0 - 51.0 % [facility] Hemoglobin (Bld) [Mass/Vol] 12.3 g/dL Low 13.0 - 17.0 g/dL [facility] Immature granulocytes (Bld) [#/Vol] [facility] Immature granulocytes/100 WBC (Bld) 0.2 % [facility] Interpretation and review of laboratory results Abnormal [facility] Lymphocytes (Bld) [#/Vol] 3.82 10*3/uL [facility] Lymphocytes/100 WBC (Bld) 37.5 % [facility] MCH (RBC) [Entitic mass] 28.6 pg 26.0 - 34.0 pg [facility] MCHC (RBC) [Mass/Vol] 33.5 g/dL 30.5 - 36.0 g/dL [facility] MCV (RBC) [Entitic vol] 85.3 fL 80.0 - 100.0 fL [facility] Monocytes (Bld) [#/Vol] 0.77 10*3/uL [facility] Monocytes/100 WBC (Bld) 7.6 % [facility] Neutrophils (Bld) [#/Vol] 5.44 10*3/uL [facility] Neutrophils/100 WBC (Bld) 53.4 % [facility] Nucleated RBC (Bld) [#/Vol] NINF [facility] Nucleated RBC/100 WBC (Bld) [Ratio] 0.0 % /100 WBC [facility] Platelet mean volume (Bld) [Entitic vol] 11.5 fL 9.0 - 12.7 fL [facility] Platelets (Bld) [#/Vol] 175 10*3/uL [facility] RBC (Bld) [#/Vol] 4.30 10*6/uL 4.20 - 6.0 0 m/uL [facility] WBC (Bld) [#/Vol] 10.18 10*3/uL [facility] Basophils (Bld) [#/Vol] 10*3/uL Normal <0.11 [facility] Comment on above: Order Comment: Speci men Type: BLOOD SPECIMEN [facility] Address: [address] [place] [address] Performed By: #### 5 5454-3 #### [facility] CLIA [id number] [address] [place] [address] [place] Basophils/100 WBC (Bld) 0.2 % Normal [facility] Comment on above: Order Comment: Speci men Type: BLOOD SPECIMEN [facility] Address: [address] [place] [address] Performed By: #### 5 5454-3 #### [facility] CLIA [id number] [address] [place] [address] [place] Differential cell count method Nom (Bld) Auto Normal [facility] Comment on above: Order Comment: Speci men Type: BLOOD SPECIMEN [facility] Address: [address] [place] [address] Performed By: #### 5 5454-3 #### [facility] CLIA [id number] [address] [place] [address] [place] Eosinophils (Bld) [#/Vol] 0.11 10*3/uL Normal <0.46 [facility] Comment on above: Order Comment: Speci men Type: BLOOD SPECIMEN [facility] Address: [address] [place] [address] Performed By: #### 5 5454-3 #### [facility] CLIA [id number] [address] [place] [address] [place] Eosinophils/100 WBC (Bld) 1.1 % Normal [facility] Comment on above: Order Comment: Speci men Type: BLOOD SPECIMEN [facility] Address: [address] [place] [address] Performed By: #### 5 5454-3 #### [facility] CLIA [id number] [address] [place] [address] [place] Erythrocyte distribution width (RBC) [Ratio] 13.0 % Normal 11.5-15.0 [facility] Comment on above: Order Comment: Speci men Type: BLOOD SPECIMEN [facility] Address: [address] [place] [address] Performed By: #### 5 5454-3 #### [facility] CLIA [id number] [address] [place] [address] [place] Hematocrit (Bld) [Volume fraction] 36.7 % Low 39.0-51.0 [facility] Comment on above: Order Comment: Speci men Type: BLOOD SPECIMEN [facility] Address: [address] [place] [address] Performed By: #### 5 5454-3 #### [facility] CLIA [id number] [address] [place] [address] [place] Hemoglobin (Bld) [Mass/Vol] 12.3 g/dL Low 13.0-17.0 [facility] Comment on above: Order Comment: Speci men Type: BLOOD SPECIMEN [facility] Address: [address] [place] [address] Performed By: #### 5 5454-3 #### [facility] CLIA [id number] [address] [place] [address] [place] Immature granulocytes (Bld) [#/Vol] 10*3/uL Normal <0.10 [facility] Comment on above: Order Comment: Speci men Type: BLOOD SPECIMEN [facility] Address: [address] [place] [address] Performed By: #### 5 5454-3 #### [facility] CLIA [id number] [address] [place] [address] [place] Immature granulocytes/100 WBC (Bld) 0.2 % Normal [facility] Comment on above: Order Comment: Speci men Type: BLOOD SPECIMEN [facility] Address: [address] [place] [address] Performed By: #### 5 5454-3 #### [facility] CLIA [id number] [address] [place] [address] [place] Lymphocytes (Bld) [#/Vol] 3.82 10*3/uL Normal 1.00-4.00 [facility] Comment on above: Order Comment: Speci men Type: BLOOD SPECIMEN [facility] Address: [address] [place] [address] Performed By: #### 5 5454-3 #### [facility] CLIA [id number] [address] [place] [address] [place] Lymphocytes/100 WBC (Bld) 37.5 % Normal [facility] Comment on above: Order Comment: Speci men Type: BLOOD SPECIMEN [facility] Address: [address] [place] [address] Performed By: #### 5 5454-3 #### [facility] CLIA [id number] [address] [place] [address] [place] MCH (RBC) [Entitic mass] 28.6 pg Normal 26.0-34.0 [facility] Comment on above: Order Comment: Speci men Type: BLOOD SPECIMEN [facility] Address: [address] [place] [address] Performed By: #### 5 5454-3 #### [facility] CLIA [id number] [address] [place] [address] [place] MCHC (RBC) [Mass/Vol] 33.5 g/dL Normal 30.5-36.0 [facility] Comment on above: Order Comment: Speci men Type: BLOOD SPECIMEN [facility] Address: [address] [place] [address] Performed By: #### 5 5454-3 #### [facility] CLIA [id number] [address] [place] [address] [place] MCV (RBC) [Entitic vol] 85.3 fL Normal 80.0-100.0 [facility] Comment on above: Order Comment: Speci men Type: BLOOD SPECIMEN [facility] Address: [address] [place] [address] Performed By: #### 5 5454-3 #### [facility] CLIA [id number] [address] [place] [address] [place] Monocytes (Bld) [#/Vol] 0.77 10*3/uL Normal <0.87 [facility] Comment on above: Order Comment: Speci men Type: BLOOD SPECIMEN [facility] Address: [address] [place] [address] Performed By: #### 5 5454-3 #### [facility] CLIA [id number] [address] [place] [address] [place] Monocytes/100 WBC (Bld) 7.6 % Normal [facility] Comment on above: Order Comment: Speci men Type: BLOOD SPECIMEN [facility] Address: [address] [place] [address] Performed By: #### 5 5454-3 #### [facility] CLIA [id number] [address] [place] [address] [place] Neutrophils (Bld) [#/Vol] 5.44 10*3/uL Normal 1.45-7.50 [facility] Comment on above: Order Comment: Speci men Type: BLOOD SPECIMEN [facility] Address: [address] [place] [address] Performed By: #### 5 5454-3 #### [facility] CLIA [id number] [address] [place] [address] [place] Neutrophils/100 WBC (Bld) 53.4 % Normal [facility] Comment on above: Order Comment: Speci men Type: BLOOD SPECIMEN [facility] Address: [address] [place] [address] Performed By: #### 5 5454-3 #### [facility] CLIA [id number] [address] [place] [address] [place] Nucleated RBC (Bld) [#/Vol] 10*3/uL Normal <0.01 [facility] Comment on above: Order Comment: Speci men Type: BLOOD SPECIMEN [facility] Address: [address] [place] [address] Performed By: #### 5 5454-3 #### [facility] CLIA [id number] [address] [place] [address] [place] Nucleated RBC/100 WBC (Bld) [Ratio] 0.0 /100 WBC Normal [facility] Comment on above: Order Comment: Speci men Type: BLOOD SPECIMEN [facility] Address: [address] [place] [address] Performed By: #### 5 5454-3 #### [facility] CLIA [id number] [address] [place] [address] [place] Platelet mean volume (Bld) [Entitic vol] 11.5 fL Normal 9.0-12.7 [facility] Comment on above: Order Comment: Speci men Type: BLOOD SPECIMEN [facility] Address: [address] [place] [address] Performed By: #### 5 5454-3 #### [facility] CLIA [id number] [address] [place] [address] [place] Platelets (Bld) [#/Vol] 175 10*3/uL Normal 150-400 [facility] Comment on above: Order Comment: Speci men Type: BLOOD SPECIMEN [facility] Address: [address] [place] [address] Performed By: #### 5 5454-3 #### [facility] CLIA [id number] [address] [place] [address] [place] RBC (Bld) [#/Vol] 4.30 10*6/uL Normal 4.20-6.00 [facility] Comment on above: Order Comment: Speci men Type: BLOOD SPECIMEN [facility] Address: [address] [place] [address] Performed By: #### 5 5454-3 #### [facility] CLIA [id number] [address] [place] [address] [place] WBC (Bld) [#/Vol] 10.18 10*3/uL Normal 3.70-11.00 [facility] Comment on above: Order Comment: Speci men Type: BLOOD SPECIMEN [facility] Address: [address] [place] [address] Performed By: #### 5 5454-3 #### [facility] STEPHAN [id number] [address] [place] [address] [place] CNOVon 12-18-2023 CNOV Office Visit (FAMPWS) ---- RONNIE LEE ([id number]) 1940 M Date Time Provider Department 12/18/23 11:40 AM YA MOREL During your visit today, we recorded the following information about you: Pulse Respiration Blood pressure 82/minute 16/minute 138/80 Ya Morel APRN.HEATING AND BLENDING SUPERVISOR 12/18/2023 5:38 PM Signed This is a 83 year old male who presents today with: Patient presents with: 6 Month Exam HISTORY OF PRESENT ILLNESS: Ronnie Lee is a 83 year old male. Patient presents with: 6 Month Exam HTN: Patient is compliant with meds Yes Monitors bp at home: No. Denies side effects: Yes. Chest pain: No. Dyspnea: No. Edema: No. Palpitations: No. Syncope: No. Headache: No. Dizziness: No. GERD: Controlled w/ PPI. Chronic anticoagulation. No abnormal s/s of bleeding. DM: Reports overall feeling well. Medication side effects: No. Home sugar checks: no Hypoglycemic spells: No. Watching diet: No. Unexpected weight loss: No. Polyuria, polydipsia: No. Vision Changes: No. Foot lesions or numbness or pain: No. CAD/pacemaker Follows w/ cardiology. 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 Hyperlipidemia Impacted cerumen TN (myocardial infarction) ([facility]) , , '03, '04 Pneumonia 03/08/2011 PAST SURGICAL HISTORY Procedure Laterality Date ANGIOPLASTY 02/2004 with stents ARTHRP ACETBLR/PROX FEM PROSTC AGRFT/ALGRFT Right CABG (2) VEIN GRAFTS AND ARTERIAL GRAFT(S 09/09/1997 COLONOSCOPY 07/26/2022 COLONOSCOPY SCREENING 08/09/2022 Dr Du CORONARY ARTERY DILATION 03/12/2010 3 stents EGD 07/26/2022 IMPLANTABLE CARDIOVERTER DEFIBRILLATOR 09/05/2010 duel chamber REMV CATARACT EXTRACAP,INSERT LENS Bilateral ALLERGIES Avandamet [Rosiglitazone-Metf ormin], Iodine, Oxycodone, and Promethazine-Codein e MEDICATIONS Current Outpatient Medications Medication Sig pantoprazole DR (PROTONIX) 40 mg tablet Take 1 tablet by mouth once daily. losartan (COZAAR) 50 mg tablet Take 50 mg by mouth once daily. ferrous sulfate 325 mg (65 mg iron) tablet Take 325 mg by mouth every other day. rosuvastatin (CRESTOR) 5 mg tablet Take 5 mg by mouth once daily. OTC PRODUCT 1,000 mg twice daily. Tumeric complex Lancets lancets Test blood sugar(s) 1 times daily. Dx: Type 2 DM - Controlled E11.9 Insulin: No blood sugar diagnostic (BLOOD GLUCOSE TEST) test strip Test blood sugar(s) 1 times daily. Dx: Type 2 DM - Controlled E11.9 Insulin: No sotalol (BETAPACE) 80 mg tablet Take 1 1/2 tablets by mouth twice daily. apixaban (ELIQUIS) 5 mg tab(s) Take 5 mg by mouth twice daily. cyanocobalamin (VITAMIN B-12) 1,000 mcg tab Take 1,000 mcg by mouth once daily. VITAMIN B COMPLEX-100 ORAL Take 1 tablet by mouth once daily. clopidogrel (PLAVIX) 75 mg tablet Take 75 mg by mouth once daily. SITagliptin-metFORM IN (JANUMET) 50-1,000 mg per tablet Take 0.5 tablets by mouth twice daily. UBIDECARENONE (COQ-10 ORAL) Take 400 mg by mouth once daily. No current facility-administer ed medications for this visit. FAMILY HISTORY Problem Relation Age of Onset Heart Father Cancer Mother Diabetes Sister Diabetes Other Diabetes Other Diabetes Daughter prediabetic Social History Tobacco Use Smoking status: Never Smokeless tobacco: Never Vaping Use Vaping status: Never Used Substance Use Topics Alcohol use: No Drug use: No EXAM: BP 138/80 Pulse 82 Resp 16 SpO2 99% PHYSICAL EXAM: General Appearance: Well appearing, alert, in no acute distress, well-hydrated, well nourished.. Skin: Skin color, texture, turgor normal, no suspicious rashes or lesions. Head: Normocephalic, no masses, lesions, tenderness or abnormalities. Eyes: Anicteric sclera. Extraocular movements are intact. . Neck: Supple, no adenopathy; thyroid symmetric, normal size, no bruits. Lungs: Lungs clear to auscultation. No wheezing, rhonchi, rales.. Heart: RRR without murmur, gallop, or rubs. No ectopy. Extremities: No deformities, trace edema right foot. Neurologic: Gait normal. ASSESSMENT/PLAN: 1. Type 2 diabetes mellitus with stage 2 chronic kidney disease, without long-term current use of insulin (HCC) (HCC) - ICD9: 250.40, 585.2, ICD10: E11.22, N18.2 (primary diagnosis) - Control undetermined, due for labs - Continue current medications - HEMOGLOBIN A1C 2. Primary hypertension - ICD9: 401.9, ICD10: I10 - Controlled - Continue current medications - Recommend home blood pressure monitoring, to bring results to next visit - Encouraged sodium restriction, DASH or Mediterranean diet - Recommend regular aero (more content not included)... Normal [facility] Comprehensive metabolic 2000 panelon 12-18-2023 Albumin [Mass/Vol] 4.0 g/dL Normal 3.9-4.9 [facility] Comment on above: Order Comment: Speci men Type: BLOOD SPECIMENOrdering Facility: [facility] Address: [address] [place] [address] Performed By: #### 3 016-3, LIPNF, 05116-9, 70623-7 ####[facility] [id number] [place] [address] [place] ALP [Catalytic activity/Vol] 75 U/L Normal 38-113 [facility] Comment on above: Order Comment: Speci men Type: BLOOD SPECIMENOrdering Facility: [facility] Address: [address] [place] [address] Performed By: #### 3 016-3, LIPNF, , ####[facility] [id number] [place] [address] [place] ALT [Catalytic activity/Vol] 14 U/L Normal 10-54 [facility] Comment on above: Order Comment: Speci men Type: BLOOD SPECIMENOrdering Facility: [facility] Address: [address] [place] [address] Performed By: #### 3 016-3, LIPNF, , ####[facility] [id number] [place] [address] [place] Anion gap [Moles/Vol] 11 mmol/L Normal 8-15 [facility] Comment on above: Order Comment: Speci men Type: BLOOD SPECIMENOrdering Facility: [facility] Address: [address] [place] [address] Performed By: #### 3 016-3, LIPNF, , ####[facility] [id number] [place] [address] [place] AST [Catalytic activity/Vol] 20 U/L Normal 14-40 [facility] Comment on above: Order Comment: Speci men Type: BLOOD SPECIMENOrdering Facility: [facility] Address: [address] [place] [address] Performed By: #### 3 016-3, LIPNF, , ####[facility] [id number] [place] [id number] [place] Bilirubin [Mass/Vol] 0.4 mg/dL Normal 0.2-1.3 [facility] Comment on above: Order Comment: Speci men Type: BLOOD SPECIMENOrdering Facility: [facility] Address: [address] [place] [address] Performed By: #### 3 016-3, LIPNF, , ####[facility] [id number] [address] [address] [place] Calcium [Mass/Vol] 9.4 mg/dL Normal 8.5-10.2 [facility] Comment on above: Order Comment: Speci men Type: BLOOD SPECIMENOrdering Facility: [facility] Address: [address] [place] [address] Performed By: #### 3 016-3, LIPNF, , ####[facility] [id number] [place] [id number] [place] Chloride [Moles/Vol] 104 mmol/L Normal 98-107 [facility] Comment on above: Order Comment: Speci men Type: BLOOD SPECIMENOrdering Facility: [facility] Address: [address] [place] [address] Performed By: #### 3 016-3, LIPNF, , ####[facility] [id number] [place] [address] [place] CO2 [Moles/Vol] 22 mmol/L Normal 22-30 [facility] Comment on above: Order Comment: Speci men Type: BLOOD SPECIMENOrdering Facility: [facility] Address: [address] [place] [address] Performed By: #### 3 016-3, LIPNF, , ####[facility] [id number] [address] [address] [place] Creatinine [Mass/Vol] 1.30 mg/dL High 0.73-1.22 [facility] Comment on above: Order Comment: Speci men Type: BLOOD SPECIMENOrdering Facility: [facility] Address: [address] [place], [place] [address] Performed By: #### 3 016-3, LIPNF, , ####[facility] [id number] [place] [address] [place] Creatinine and Glomerular filtration rate.predicted panel (S/P/Bld) 54 mL/min/1.73m??? Low >=60 [facility] Comment on above: Order Comment: Janis kaba Type: BLOOD SPECIMENOrdering Facility: [facility] Address: [address] [place] [address] Result Comment: Magnolia mated Glomerular Filtration Rate (eGFR) is calculated using the 2020 CKD-EPI creatinine equation. This equation utilizes serum creatinine, sex, and age as parameters. The creatinine assay has traceable calibration to isotope dilution-mass spectrometry. Refer to KDIGO guidelines for clinical interpretation. In patients with unstable renal function, e.g. those with acute kidney injury, the eGFR may not accurately reflect actual GFR. Performed By: #### 3 016-3, LIPNF, 57785-8, 17306-7 ####[facility] [id number] [place] [address] [place] Glucose [Mass/Vol] 235 mg/dL High 74-99 [facility] Comment on above: Order Comment: Janis kaba Type: BLOOD SPECIMENOrdering Facility: [facility] Address: [address] [place] [address] Result Comment: The [place] [employer] (ADA) provides guidance for cutoff values for fasting glucose and random glucose. The ADA defines fasting as no caloric intake for at least 8 hours. Fasting plasma glucose results between 100 to 125 mg/dL indicate increased risk for diabetes (prediabetes). Fasting plasma glucose results greater than or equal to 126 mg/dL meet the criteria for diagnosis of diabetes. In the absence of unequivocal hyperglycemia, results should be confirmed by repeat testing. In a patient with classic symptoms of hyperglycemia or hyperglycemic crisis, random plasma glucose results greater than or equal to 200 mg/dL meet the criteria for diagnosis of diabetes. Reference: Standards of Medical Care in Diabetes 2016, [place] [employer]. Diabetes Care. 2016.39(Suppl 1). Performed By: #### 3 016-3, LIPNF, 01582-3, 27515-8 ####[facility] [id number] [address] [address] [place] [place] Potassium [Moles/Vol] 4.8 mmol/L Normal 3.7-5.1 [facility] Comment on above: Order Comment: Speci men Type: BLOOD SPECIMENOrdering Facility: [facility] Address: [address] [place] [address] Performed By: #### 3 016-3, LIPNF, , ####[facility] [id number] [address] [address] [place] Protein [Mass/Vol] 7.6 g/dL Normal 6.3-8.0 [facility] Comment on above: Order Comment: Speci men Type: BLOOD SPECIMENOrdering Facility: [facility] Address: [address] [place] [address] Performed By: #### 3 016-3, LIPNF, , ####[facility] [id number] [place] [id number] [place] Sodium [Moles/Vol] 137 mmol/L Normal 136-144 [facility] Comment on above: Order Comment: Speci men Type: BLOOD SPECIMENOrdering Facility: [facility] Address: [address] [place] [address] Performed By: #### 3 016-3, LIPNF, , ####[facility] [id number] [place] [id number] [place] Urea nitrogen [Mass/Vol] 26 mg/dL High 9-24 [facility] Comment on above: Order Comment: Speci men Type: BLOOD SPECIMENOrdering Facility: [facility] Address: [address] [place] [address] Performed By: #### 3 016-3, LIPNF, , ####[facility] [id number] [place] [address] [place] HbA1c (Bld)on 12-18-2023 Average glucose Estimated from glycated hemoglobin (Bld) [Mass/Vol] 194 mg/dL Normal [facility] Comment on above: Order Comment: Janis kaba Type: BLOOD SPECIMEN [facility] Address: [address] [place] [address] Result Comment: eAG: (Estimated average glucose) is a calculated value from HgbA1c and is personal financial representative of the average blood glucose level in the last 2-3 month period. Performed By: #### 5 5454-3 #### [facility] CLIA [id number] [address] [place] [address] [place] HbA1c (Bld) [Mass fraction] 8.4 % High 4.3-5.6 [facility] Comment on above: Order Comment: Janis kaba Type: BLOOD SPECIMEN [facility] Address: [address] [place] [address] Result Comment: Amer ican Diabetes Association guidelines indicate that patients with HgbA1c in the range 5.7-6.4% are at increased risk for development of diabetes, and intervention by lifestyle modification may be beneficial. HgbA1c greater or equal to 6.5% is considered diagnostic of diabetes. Performed By: #### 5 5454-3 #### [facility] CLIA [id number] [address] [place] [address] [place] LIPID PANEL, NONFASTINGon Cholesterol [Mass/Vol] 163 mg/dL Normal <200 [facility] Comment on above: Order Comment: Janis kaba Type: BLOOD SPECIMENOrdering Facility: [facility] Address: [address] [place] [address] Result Comment: <200 mg/dL, Desirable 200-239 mg/dL, Borderline high >239 mg/dL, High Performed By: #### 3 016-3, LIPNF, 64720-0, 95424-8 ####[facility] [id number] [place] [address] [place] HDL CHOLESTEROL, NF 35 mg/dL Low >39 [facility] Comment on above: Order Comment: Speci men Type: BLOOD SPECIMENOrdering Facility: [facility] Address: [facility] [place] [address] Result Comment: 40-5 9 mg/dL, Acceptable >59 mg/dL, High: Negative risk factor for coronary heart disease <40 mg/dL, Low: Positive risk factor for coronary heart disease Performed By: #### 3 016-3, LIPNF, , ####[facility] [id number] [address] [facility] LDL CHOLESTEROL, NF 101 mg/dL High <100 [facility] Comment on above: Order Comment: Speci men Type: BLOOD SPECIMENOrdering Facility: [facility] Address: [address] [place] [address] Result Comment: <100 mg/dL, Optimal 100-129 mg/dL, Near optimal/above optimal 130-159 mg/dL, Borderline high 160-189 mg/dL, High >189 mg/dL, Very high Secondary prevention optimal LDL Cholesterol levels are recommended to be < 70 mg/dL Performed By: #### 3 016-3, LIPNF, , ####[facility] [id number] [address] [place] LDL/HDL RATIO, NF 2.89 mg/dL High <2.54 [facility] Comment on above: Order Comment: Speci men Type: BLOOD SPECIMENOrdering Facility: [facility] Address: [address] [place] [address] Result Comment: Refe rence: 1. National Cholesterol Education Program ATP III Guideline At-A-Glance Quick Desk Reference: National Heart, Lung, and Blood [place]. National Institutes of Health. 2001: NIH Publication No. 01-3305. 2. An International Atherosclerosis Society position paper: global recommendations for the management of dyslipidemia: executive summary, Atherosclerosis. 2014: 232(2):410-413. Performed By: #### 3 016-3, LIPNF, , ####[facility] [id number] [place] [address] [place] NON HDL CHOL, NF 128 mg/dL Normal <130 [facility] Comment on above: Order Comment: Speci men Type: BLOOD SPECIMENOrdering Facility: [facility] Address: [address] [place] [address] Result Comment: <130 mg/dL, Optimal 130-159 mg/dL, Near optimal/above optimal 160-189 mg/dL, Borderline high 190-219 mg/dL, High >219 mg/dL, Very high Secondary prevention optimal non HDL Cholesterol levels are recommended to be <100 mg/dL Performed By: #### 3 016-3, LIPNF, , ####[facility] [id number] [place] [address] [place] T CHOL/HDL RATIO NF 4.66 mg/dL Normal <5.10 [facility] Comment on above: Order Comment: Speci men Type: BLOOD SPECIMENOrdering Facility: [facility] Address: [address] [place] [address] Performed By: #### 3 016-3, LIPNF, , ####[facility] [id number] [place] [address] [place] TRIGLYCERIDES, NF 133 mg/dL Normal <150 [facility] Comment on above: Order Comment: Speci men Type: BLOOD SPECIMENOrdering Facility: [facility] Address: [address] [place] [address] Result Comment: <150 mg/dL, Normal 150-199 mg/dL, Borderline high 200-499 mg/dL, High >499 mg/dL, Very high Performed By: #### 3 016-3, LIPNF, , ####[facility] [id number] [place] [address] [place] VLDL CHOLESTEROL, NF 27 mg/dL Normal <30 [facility] Comment on above: Order Comment: Speci men Type: BLOOD SPECIMENOrdering Facility: [facility] Address: [address] [place] [address] Performed By: #### 3 016-3, LIPNF, 38236-0, 57208-5 ####[facility] [id number] [place] [address] [place] Magnesium SerPl-mCncon 12-17 Magnesium [Mass/Vol] 1.9 mg/dL Normal 1.7-2.3 [facility] Comment on above: Order Comment: Speci men Type: BLOOD SPECIMENOrdering Facility: [facility] Address: [address] [place] [address] Performed By: #### 3 016-3, LIPNF, 36631-7, 03358-7 ####[facility] [id number] [place] [address] [place] TSH SerPl-aCncon 12-18-2023 TSH Qn 3.600 m[IU]/L Normal 0.270-4.200 [facility] Comment on above: Order Comment: Speci men Type: BLOOD SPECIMEN [facility] Address: [address] [place] [address] Performed By: #### 5 5454-3 #### [facility] CLIA [id number] [address] [place] [address] [place] Cardiology Visit Reporton Cardiology Visit Report [facility] [address] [place] [address]. [address] [place] [address] OFFICE VISIT Date of Service: 12/13/23 MR#: [id number] Acct: [id number] Name: RONNIE LEE Rep #: [id number] : 1940 Provider: YESSENIA soto Age/Sex: 83/M Location: [facility] Status: Signed [facility] History of Present Illness Details: 83-year-old man who is here for a follow-up visit he is a gentleman with a history of hypertension, hyperlipidemia, paroxysmal atrial fibrillation, coronary artery disease status post coronary artery bypass surgery in 1997 with a JACOBSON to the LAD. He is also status post PCI with a drug-eluting stent to the circumflex artery in 2002. In 2010, he presented again and underwent drug-eluting stent placed to the right coronary artery as well as a drug-eluting stent to the in-stent stenotic lesion in the left circumflex artery. In 2010, he had an ICD placed for ischemic cardiomyopathy. He had a generator change for the above in September 2017. His echocardiogram which was performed in 2018 demonstrated moderate diffuse hypokinesis with an estimated ejection fraction of 30 to 35%. He has been diagnosed with chronic lymphocytic leukemia for which he has been on ibrutinib. He has also been on Eliquis and Plavix. We did discontinue his carvedilol and he was started on sotalol and he has done quite well. His defibrillator was interrogated during today's visit. He denies chest, arm, jaw, or neck discomfort. He denies palpitations. He denies bilateral lower extremity edema, but does acknowledge occasional right calf swelling attributed to previous knee brace. He denies claudication. He denies shortness of breath with activity, shortness of breath at rest, orthopnea, or PND. He denies chronic cough. He denies significant, sudden weight gain. He denies lightheadedness, dizziness, near-syncope, or syncope. He denies blood in urine, blood in stool, or epistaxis. He denies fever with chills. He denies myalgia. He acknowledges fatigue that is unchanged from previous. His exercise level has remained stable. Intake Vital Signs 09/18/23 11:28 12/13/23 11:25 Height 6 ft 6 ft Weight: 159 lb 165 lb BMI 21.5 22.4 BP 134/76 H 139/86 H Blood Pressure Location Lt brachial Lt brachial Position Sitting Sitting Respiration 16 16 Pulse 70 71 Pulse Source Monitor NIBP Intake Visit Reasons: 3 M FU Helicopter Repairer Required: No Is patient in pain?: No Allergies iodine Allergy (Severe, Verified 12/13/23 11:35) Anaphylaxis oxycodone Allergy (Intermediate, Verified 12/13/23 11:35) dizziness Food Allergies: Uncoded Allergy (Mild, Verified 12/13/23 11:35) HEADACHE codeine Adverse Reaction (Intermediate, Verified 12/13/23 11:35) Low BP promethazine Adverse Reaction (Intermediate, Verified 12/13/23 11:35) Low BP metformin (From Avandamet) Adverse Reaction (Unknown, Verified 12/13/23 11:35) Patient refuses rosiglitazone (From Avandamet) Adverse Reaction (Unknown, Verified 12/13/23 11:35) Patient refuses Medications ???Medication ???Instructions ???Recorded ???Confirmed ???Type apixaban 5 mg tablet (Eliquis) 5 mg PO BID blood thinner 08/29/21 12/13/23 History coenzyme Q10 400 mg capsule (Co 400 mg PO DAILY supplement 08/29/21 12/13/23 History Q-10) cyanocobalamin (vitamin B-12) 1,000 mcg PO DAILY vitamin 08/29/21 12/13/23 History 1,000 mcg tablet pantoprazole 40 mg tablet,delayed 40 mg PO DAILY reflux 08/29/21 12/13/23 History release vitamin B complex 1 tab PO DAILY vitamin 08/29/21 12/13/23 History clopidogrel 75 mg tablet 75 mg PO DAILY #90 tabs 12/14/22 12/13/23 Rx losartan 50 mg tablet 50 mg PO DAILY #90 TABLETS 07/27/23 12/13/23 Rx rosuvastatin 5 mg tablet 5 mg PO QDAY 09/18/23 12/13/23 History sitagliptin phosphate 50 1 tab PO QDAY 09/18/23 12/13/23 History mg-metformin 1,000 mg tablet (Janumet) sotalol 120 mg tablet 120 mg PO BID #180 tabs 09/18/23 12/13/23 Rx turmeric PO 12/13/23 12/13/23 History Ejection fraction %: 30 (30-35) Have you fallen in the past year?: Yes (Trip and fall) PFSH Medical History CVA (cerebral vascular accident) Blood disorder Bleeding tendency Diabetes High cholesterol History of stress test Pacemaker Heart attack GI bleed Peripheral vascular occlusive disease Hyperlipidemia History of [place] (myocardial infarction) GERD (gastroesophageal reflux disease) Essential hypertension Ischemic cardiomyopathy CLL (chronic lymphocytic leukemia) Type 2 diabetes mellitus without complication Paroxysmal atrial fibrillation Combined systolic and diastolic congestive heart failure, NYHA class 2 Atherosclerosis of coronary artery of [place] heart without angina pectoris Surgical History Histor (more content not included)... Normal [facility] 12 Lead EKG performed by [facility] on 09-18-2023 12 Lead EKG performed by [facility] [address] [place] [address] 12 Lead EKG performed by [facility] 09/18/23 1139 MR#: [id number] Acct: [id number] Name: RONNIE LEE Rep #: [id number] : 1940 82 From: Nathaniel Murillo NP EAR MUFF ASSEMBLER-C Attending Dr: Nathaniel Murillo EAR MUFF ASSEMBLER-C Status: DEP AMB Ordering Dr: Nathaniel Murillo NP EAR MUFF ASSEMBLER-C Date: 09/18/23 Location: [facility] Sex: M C Admitted: BMS/12 Lead EKG performed by [facility] ECG Report Interpretation -------Sinus Rhythm -Short AL syndrome - occasional ectopic ventricular beat Golden = 116Low voltage in limb leads. -Nonspecific QRS widening. - Nonspecific T-abnormality. ABNORMAL Electronically signed on 09/25/2023 at 10:35 by Marcos [employer] Software Version [id number] 09/25/23 1039 Date Nathaniel Murillo EAR MUFF ASSEMBLER EAR MUFF ASSEMBLER-C CC: Dr. Zachary Kennedy MD Date Dictated: 09/18/23 113 Date Transcribed: 09/18/231138 Political Geographer: HOLLIE Signed Normal [facility] Cardiology Visit Reporton Cardiology Visit Report [facility] [address] [place] [address] OFFICE VISIT Date of Service: 09/18/23 MR#: [id number] Acct: [id number] Name: RONNIE LEE Rep #: [id number] : 1940 Provider: YESSENIA soto Age/Sex: 82/M Location: [facility] Status: Signed [facility] History of Present Illness Details: 82-year-old man who is here for a follow-up visit he is a gentleman with a history of hypertension, hyperlipidemia, paroxysmal atrial fibrillation, coronary artery disease status post coronary artery bypass surgery in 1997 with a JACOBSON to the LAD. He is also status post PCI with a drug-eluting stent to the circumflex artery in 2002. In 2010, he presented again and underwent drug-eluting stent placed to the right coronary artery as well as a drug-eluting stent to the in-stent stenotic lesion in the left circumflex artery. In 2010, he had an ICD placed for ischemic cardiomyopathy. He had a generator change for the above in September 2017. His echocardiogram which was performed in 2018 demonstrated moderate diffuse hypokinesis with an estimated ejection fraction of 30 to 35%. He has been diagnosed with chronic lymphocytic leukemia for which he has been on ibrutinib. He has also been on Eliquis and Plavix. We did discontinue his carvedilol and he was started on sotalol and he has done quite well. His defibrillator was interrogated during today's visit. He denies chest, arm, jaw, or neck discomfort. He denies palpitations. He denies bilateral lower extremity edema, but does acknowledge occasional right calf swelling attributed to previous knee brace. He denies claudication. He denies shortness of breath with activity, shortness of breath at rest, orthopnea, or PND. He denies chronic cough. He denies significant, sudden weight gain. He denies lightheadedness, dizziness, near-syncope, or syncope. He denies blood in urine, blood in stool, or epistaxis. He denies fever with chills. He denies myalgia. He acknowledges fatigue that is unchanged from previous. His exercise level has remained stable. Intake Vital Signs 12/14/22 13:49 09/18/23 11:28 Height 6 ft 6 ft Weight: 165 lb 159 lb BMI 22.4 21.5 BP 119/62 134/76 H Blood Pressure Location Lt brachial Lt brachial Position Sitting Sitting Respiration 16 16 Pulse 61 70 Pulse Source Monitor Monitor Intake Visit Reasons: 9 M Helicopter Repairer Required: No Accompanied by: Is patient in pain?: No Allergies iodine Allergy (Severe, Verified 09/18/23 11:31) Anaphylaxis oxycodone Allergy (Intermediate, Verified 09/18/23 11:31) dizziness Food Allergies: Uncoded Allergy (Mild, Verified 09/18/23 11:31) HEADACHE codeine Adverse Reaction (Intermediate, Verified 09/18/23 11:31) Low BP promethazine Adverse Reaction (Intermediate, Verified 09/18/23 11:31) Low BP metformin (From Avandamet) Adverse Reaction (Unknown, Verified 09/18/23 11:31) Patient refuses rosiglitazone (From Avandamet) Adverse Reaction (Unknown, Verified 09/18/23 11:31) Patient refuses Medications ???Medication ???Instructions ???Recorded ???Confirmed ???Type apixaban 5 mg tablet (Eliquis) 5 mg PO BID blood thinner 08/29/21 09/18/23 History coenzyme Q10 400 mg capsule (Co 400 mg PO DAILY supplement 08/29/21 09/18/23 History Q-10) cyanocobalamin (vitamin B-12) 1,000 mcg PO DAILY vitamin 08/29/21 09/18/23 History 1,000 mcg tablet pantoprazole 40 mg tablet,delayed 40 mg PO DAILY reflux 08/29/21 09/18/23 History release vitamin B complex 1 tab PO DAILY vitamin 08/29/21 09/18/23 History clopidogrel 75 mg tablet 75 mg PO DAILY #90 tabs 12/14/22 09/18/23 Rx ferrous sulfate 325 mg (65 mg 325 mg PO Q OTHER DAY 12/14/22 09/18/23 History iron) tablet losartan 50 mg tablet 50 mg PO DAILY #90 TABLETS 07/27/23 09/18/23 Rx rosuvastatin 5 mg tablet 5 mg PO QDAY 09/18/23 09/18/23 History sitagliptin phosphate 50 1 tab PO QDAY 09/18/23 09/18/23 History mg-metformin 1,000 mg tablet (Janumet) sotalol 120 mg tablet 120 mg PO BID #180 tabs 09/18/23 09/18/23 Rx Ejection fraction %: 30 Have you fallen in the past year?: Yes PFS Medical History (Updated 09/18/23 @ 11:35 by Kassi Ochoa) CVA (cerebral vascular accident) Blood disorder Bleeding tendency Diabetes High cholesterol History of stress test Pacemaker Heart attack GI bleed Peripheral vascular occlusive disease Hyperlipidemia History of [place] (myocardial infarction) GERD (gastroesophageal reflux disease) Essential hypertension Ischemic cardiomyopathy CLL (chronic lymphocytic leukemia) Type 2 diabetes mellitus without complication Paroxysmal atrial fibrillation Combined systolic and diastolic congestive heart failure, NYHA class 2 Atherosclerosis of coronary artery of [place] heart without angina pectoris Surgical H (more content not included)... Normal [facility] .GFRon 06-12-2023 GFR 56 ml/min/1.73sqm [facility] Comment on above: Result Comment: GFR Population mean for , Non- Americans Ages 20-29 = 116 mL/min/1.73 sq.m. Ages 30-39 = 107 mL/min/1.73 sq.m. Ages 40-49 = 99 mL/min/1.73 sq.m. Ages 50-59 = 93 mL/min/1.73 sq.m. Ages 60-69 = 85 mL/min/1.73 sq.m. Ages 70+ = 75 mL/min/1.73 sq.m. Chronic Kidney Disease: Less than 60 mL/min/1.73 square meters End Stage Renal Disease: Less than 15 mL/min/1.73 square meters Performed By: #### M G, CMP, LIPID, PHOS, VIDH, TSH, GFR, CAION, A1C #### [address] [address] GFR Non- 46 ml/min/1.73sqm Normal [facility] Comment on above: Result Comment: GFR Population mean for , Non- Americans Ages 20-29 = 116 mL/min/1.73 sq.m. Ages 30-39 = 107 mL/min/1.73 sq.m. Ages 40-49 = 99 mL/min/1.73 sq.m. Ages 50-59 = 93 mL/min/1.73 sq.m. Ages 60-69 = 85 mL/min/1.73 sq.m. Ages 70+ = 75 mL/min/1.73 sq.m. Chronic Kidney Disease: Less than 60 mL/min/1.73 square meters End Stage Renal Disease: Less than 15 mL/min/1.73 square meters Performed By: #### M G, CMP, LIPID, PHOS, VIDH, TSH, GFR, CAION, A1C #### [address] [address] A1Con 06-12-2023 HbA1c (Bld) [Mass fraction] 6.7 % High 4.3-6.4 [facility] Comment on above: Performed By: #### C AUR #### [address] [address] #### CRUR #### [address] [address] CMPon 06-12-2023 Albumin Level 3.3 G/dL Low 3.4-4.8 [facility] Comment on above: Performed By: #### M G, CMP, LIPID, PHOS, VIDH, TSH, GFR, CAION, A1C #### [address] [address] Albumin/Globulin [Mass ratio] 0.9 {ratio} Low 1.1-2.5 [facility] Comment on above: Performed By: #### M G, CMP, LIPID, PHOS, VIDH, TSH, GFR, CAION, A1C #### [address] [address] ALP [Catalytic activity/Vol] 75 U/L Normal 40-135 [facility] Comment on above: Performed By: #### M G, CMP, LIPID, PHOS, VIDH, TSH, GFR, CAION, A1C #### [address] [address] ALT [Catalytic activity/Vol] 16 U/L Normal 16-63 [facility] Comment on above: Performed By: #### M G, CMP, LIPID, PHOS, VIDH, TSH, GFR, CAION, A1C #### [address] [address] AST [Catalytic activity/Vol] 10 U/L Normal 10-40 [facility] Comment on above: Performed By: #### M G, CMP, LIPID, PHOS, VIDH, TSH, GFR, CAION, A1C #### [address] [address] Bili Total 0.4 mg/dL Normal 0.2-1.0 [facility] Comment on above: Result Comment: Use of this assay is not recommended for patients undergoing treatment with eltrombopag due to the potential for falsely elevated results. Performed By: #### M G, CMP, LIPID, PHOS, VIDH, TSH, GFR, CAION, A1C #### [address] [address] BUN/Creatinine Ratio 16 ratio Normal 7-27 [facility] ([place] Comment on above: Performed By: #### M G, CMP, LIPID, PHOS, VIDH, TSH, GFR, CAION, A1C #### [address] [address] Calcium [Mass/Vol] 8.7 mg/dL Normal 8.4-10.2 [facility] ([place]) Comment on above: Performed By: #### M G, CMP, LIPID, PHOS, VIDH, TSH, GFR, CAION, A1C #### [address] [address] Chloride [Moles/Vol] 106 mmol/L Normal 98-107 [facility] ([place] Comment on above: Performed By: #### M G, CMP, LIPID, PHOS, VIDH, TSH, GFR, CAION, A1C #### [address] [address] CO2 [Moles/Vol] 26 mmol/L Normal 23-31 [facility] Comment on above: Performed By: #### M G, CMP, LIPID, PHOS, VIDH, TSH, GFR, CAION, A1C #### [address] [address] Creatinine [Mass/Vol] 1.45 mg/dL High 0.70-1.30 [facility] ([place] Comment on above: Performed By: #### M G, CMP, LIPID, PHOS, VIDH, TSH, GFR, CAION, A1C #### [address] [address] Electrolyte Balance 9.0 mEq/L Normal 4.0-15.0 [facility] ([place]) Comment on above: Performed By: #### M G, CMP, LIPID, PHOS, VIDH, TSH, GFR, CAION, A1C #### [address] [address] Globulin 3.7 G/dL Normal [facility] Comment on above: Performed By: #### M G, CMP, LIPID, PHOS, VIDH, TSH, GFR, CAION, A1C #### [address] [address] Glucose [Mass/Vol] 130 mg/dL High 83-110 [facility] ([place] Comment on above: Performed By: #### M G, CMP, LIPID, PHOS, VIDH, TSH, GFR, CAION, A1C #### [address] [address] Potassium [Moles/Vol] 4.0 mmol/L Normal 3.5-5.1 [facility] ([place] Comment on above: Performed By: #### M G, CMP, LIPID, PHOS, VIDH, TSH, GFR, CAION, A1C #### [address] [address] Sodium [Moles/Vol] 141 mmol/L Normal 136-145 [facility] ([place] Comment on above: Performed By: #### M G, CMP, LIPID, PHOS, VIDH, TSH, GFR, CAION, A1C #### [address] [address] Total Protein 7.0 G/dL Normal 6.4-8.2 [facility] Comment on above: Performed By: #### M G, CMP, LIPID, PHOS, VIDH, TSH, GFR, CAION, A1C #### [address] [id number] [place], [place] [address] Urea nitrogen [Mass/Vol] 23 mg/dL High 7-18 [facility] Comment on above: Performed By: #### M G, CMP, LIPID, PHOS, VIDH, TSH, GFR, CAION, A1C #### [address] [place] [id number] [place], [place] [address] LABORATORYOrdered By: SYSTEM SYSTEM on 06-12-2023 25-hydroxyvitamin D3 [Mass/Vol] 92.8 ng/mL Invalid Interpretation Code AO ADM SS Comment on above: Interpretive Data: I nterpretive Values Based on Total 25(OH) Vitamin D: Deficient <20 ng/mL Insufficient 20 - <30 ng/mL Sufficient 30-100 ng/mL Albumin BCP dye [Mass/Vol] 3.3 G/dL Low 3.4 - 4.8 G/dL AO ADM SS Albumin/Globulin [Mass ratio] 0.9 {ratio} Low 1.1 - 2.5 ratio AO ADM SS ALP [Catalytic activity/Vol] 75 U/L Normal 40 - 135 U/L AO ADM SS ALT With P-5'-P [Catalytic activity/Vol] 16 U/L Normal 16 - 63 U/L AO ADM SS AST With P-5'-P [Catalytic activity/Vol] 10 U/L Normal 10 - 40 U/L AO ADM SS Bilirubin [Mass/Vol] 0.4 mg/dL Normal 0.2 - 1 .0 mg/dL AO ADM SS Comment on above: Interpretive Data: U se of this assay is not recommended for patients undergoing treatment with eltrombopag due to the potential for falsely elevated results. Calcium [Mass/Vol] 8.7 mg/dL Normal 8.4 - 10. 2 mg/dL AO ADM SS Chloride [Moles/Vol] 106 mmol/L Normal 98 - 10 7 mmol/L AO ADM SS CO2 [Moles/Vol] 26 mmol/L Normal 23 - 31 mmol/L AO AD M SS Creatinine [Mass/Vol] 1.45 mg/dL High 0.70 - 1.30 mg/dL AO ADM SS Electrolyte Balance 9.0 mEq/L Normal 4.0 - 15 .0 mEq/L AO ADM SS GFR/1.73 sq M.predicted among blacks MDRD (S/P/Bld) [Vol rate/Area] 56 ml/min/1.73sqm Invalid Interpretation Code AO Chemistry S Comment on above: Interpretive Data: GFR Population mean for , Non- Americans Ages 20-29 = 116 mL/min/1.73 sq.m. Ages 30-39 = 107 mL/min/1.73 sq.m. Ages 40-49 = 99 mL/min/1.73 sq.m. Ages 50-59 = 93 mL/min/1.73 sq.m. Ages 60-69 = 85 mL/min/1.73 sq.m. Ages 70+ = 75 mL/min/1.73 sq.m. Chronic Kidney Disease: Less than 60 mL/min/1.73 square meters End Stage Renal Disease: Less than 15 mL/min/1.73 square meters GFR/1.73 sq M.predicted among non-blacks MDRD (S/P/Bld) [Vol rate/Area] 46 ml/min/1.73sqm Invalid Interpretation Code AO Chemistry S Comment on above: Interpretive Data: GFR Population mean for , Non- Americans Ages 20-29 = 116 mL/min/1.73 sq.m. Ages 30-39 = 107 mL/min/1.73 sq.m. Ages 40-49 = 99 mL/min/1.73 sq.m. Ages 50-59 = 93 mL/min/1.73 sq.m. Ages 60-69 = 85 mL/min/1.73 sq.m. Ages 70+ = 75 mL/min/1.73 sq.m. Chronic Kidney Disease: Less than 60 mL/min/1.73 square meters End Stage Renal Disease: Less than 15 mL/min/1.73 square meters Globulin 3.7 G/dL Invalid Interpretation Code AO ADM SS Glucose [Mass/Vol] 130 mg/dL High 83 - 110 mg/dL AO ADM SS HbA1c (Bld) [Mass fraction] 6.7 % High 4.3 - 6.4 % AO ADM SS Potassium [Moles/Vol] 4.0 mmol/L Normal 3.5 - 5.1 mmol/L AO ADM SS Protein [Mass/Vol] 7.0 G/dL Normal 6.4 - 8.2 G/dL AO ADM SS Sodium [Moles/Vol] 141 mmol/L Normal 136 - 145 mmol/L AO ADM SS TSH Qn 5.70 m[IU]/L High 0.36 - 3.74 mcIU/mL AO ADM SS Urea nitrogen [Mass/Vol] 23 mg/dL High 7 - 18 mg/dL AO ADM SS Urea nitrogen/Creatinine [Mass ratio] 16 ratio Normal 7 - 27 ratio AO ADM SS LABORATORYOrdered By: Jessica Klein on 06-12-2023 Cholesterol [Mass/Vol] 151 mg/dL Normal 0 - 200 mg/dL AO ADM SS Comment on above: Interpretive Data: C holesterol Reference Interval: Less than 200 Desirable 200-239 Borderline high risk 240 and above High risk Cholesterol in HDL [Mass/Vol] 40 mg/dL Normal 40 - 60 mg/dL AO ADM SS Cholesterol in LDL [Mass/Vol] 86 mg/dL Normal 0 - 130 mg/dL AO ADM SS Triglyceride [Mass/Vol] 123 mg/dL Normal 0 - 150 mg/dL AO ADM SS Comment on above: Interpretive Data: T riglyceride Reference Interval: Less than 150 Normal 150-199 Borderline high risk 200-499 High risk 500 or higher Very high risk LIPIDon 06-12-2023 Cholesterol [Mass/Vol] 151 mg/dL Normal 0-200 [facility] ([place]) Comment on above: Result Comment: Chol esterol Reference Interval: Less than 200 Desirable 200-239 Borderline high risk 240 and above High risk Performed By: #### M G, CMP, LIPID, PHOS, VIDH, TSH, GFR, CAION, A1C #### [address] [address] Cholesterol in HDL [Mass/Vol] 40 mg/dL Normal 40-60 [facility] ([place] Comment on above: Performed By: #### M G, CMP, LIPID, PHOS, VIDH, TSH, GFR, CAION, A1C #### [address] [address] Cholesterol in LDL [Mass/Vol] 86 mg/dL Normal 0-130 [facility] ([place] Comment on above: Performed By: #### M G, CMP, LIPID, PHOS, VIDH, TSH, GFR, CAION, A1C #### [address] [address] Triglyceride [Mass/Vol] 123 mg/dL Normal 0-150 [facility] ([place] Comment on above: Result Comment: Trig lyceride Reference Interval: Less than 150 Normal 150-199 Borderline high risk 200-499 High risk 500 or higher Very high risk Performed By: #### M G, CMP, LIPID, PHOS, VIDH, TSH, GFR, CAION, A1C #### [place] [id number] TSHon 06-12-2023 TSH Qn 5.70 m[IU]/L High 0.36-3.74 [facility] ([place] Comment on above: Performed By: #### M G, CMP, LIPID, PHOS, VIDH, TSH, GFR, CAION, A1C #### [place] [id number] VIDHon 06-12-2023 Vit. D 25-Hydroxy 92.8 ng/mL Normal [facility] ([place] Comment on above: Result Comment: Inte rpretive Values Based on Total 25(OH) Vitamin D: Deficient <20 ng/mL Insufficient 20 - <30 ng/mL Sufficient 30-100 ng/mL Performed By: #### M G, CMP, LIPID, PHOS, VIDH, TSH, GFR, CAION, A1C #### [address] [address] .Auto Diffon 09-21-2022 Basophil, Absolute 0.0 10 3/mcL Normal 0.0-0.2 [facility] ([place]) Comment on above: Performed By: #### C AUR #### [place] [address] #### CRUR #### [place] [address] Basophils/100 WBC (Bld) 0.4 % Normal 0.0-2.5 [facility] ([place] Comment on above: Performed By: #### C AUR #### [address] [address] #### CRUR #### [place] [place] [address] [place], [place] [address] Eosinophil, Absolute 0.1 10 3/mcL Normal 0.0-0.4 [facility] ([place]) Comment on above: Performed By: #### C AUR #### [place] [address] #### CRUR #### [address] [address] Eosinophils/100 WBC (Bld) 1.9 % Normal 0.0-7.0 [facility] ([place]) Comment on above: Performed By: #### C AUR #### [place] [address] #### CRUR #### [address] [address] Lymphocyte, Absolute 1.8 10 3/mcL Normal 0.8-3.9 [facility] ([place] Comment on above: Performed By: #### C AUR #### [place] [address] #### CRUR #### [address] [address] Lymphocytes/100 WBC (Bld) 26.3 % Normal 10.0-50.0 [facility] ([place] Comment on above: Performed By: #### C AUR #### [place] [address] #### CRUR #### [address] [address] Monocyte, Absolute 0.7 10 3/mcL Normal 0.2-1.0 [facility] ([place] Comment on above: Performed By: #### C AUR #### [place] [address] #### CRUR #### [address] [address] Monocytes/100 WBC (Bld) 9.8 % Normal 1.7-13.0 [facility] ([place] Comment on above: Performed By: #### C AUR #### [place] [address] #### CRUR #### [place] [address] [place], [place] [address] Neutrophils/100 WBC (Bld) 61.6 % Normal 37.0-80.0 [facility] ([place] Comment on above: Performed By: #### C AUR #### [address] [address] #### CRUR #### [place] [address] [place], [place] [address] .GFRon 09-21-2022 GFR 71 ml/min/1.73sqm Normal [facility] ([place] Comment on above: Result Comment: GFR Population mean for , Non- Americans Ages 20-29 = 116 mL/min/1.73 sq.m. Ages 30-39 = 107 mL/min/1.73 sq.m. Ages 40-49 = 99 mL/min/1.73 sq.m. Ages 50-59 = 93 mL/min/1.73 sq.m. Ages 60-69 = 85 mL/min/1.73 sq.m. Ages 70+ = 75 mL/min/1.73 sq.m. Chronic Kidney Disease: Less than 60 mL/min/1.73 square meters End Stage Renal Disease: Less than 15 mL/min/1.73 square meters Performed By: #### C AUR #### [address] [address] #### CRUR #### [address] [address] GFR Non- 59 ml/min/1.73sqm Normal [facility] ([place] Comment on above: Result Comment: GFR Population mean for , Non- Americans Ages 20-29 = 116 mL/min/1.73 sq.m. Ages 30-39 = 107 mL/min/1.73 sq.m. Ages 40-49 = 99 mL/min/1.73 sq.m. Ages 50-59 = 93 mL/min/1.73 sq.m. Ages 60-69 = 85 mL/min/1.73 sq.m. Ages 70+ = 75 mL/min/1.73 sq.m. Chronic Kidney Disease: Less than 60 mL/min/1.73 square meters End Stage Renal Disease: Less than 15 mL/min/1.73 square meters Performed By: #### C AUR #### [place] [address] #### CRUR #### [address] [address] .NEUABSon 09-21-2022 Neutrophil, Absolute 4.3 10 3/mcL Normal 2.9-6.2 [facility] ([place]) Comment on above: Performed By: #### C AUR #### [place] [address] #### CRUR #### [place] [address] A1Con 09-21-2022 HbA1c (Bld) [Mass fraction] 6.2 % Normal 4.3-6.4 [facility] ([place] Comment on above: Performed By: #### C AUR #### [place] [address] #### CRUR #### [address] [address] CBCon 09-21-2022 Erythrocyte distribution width (RBC) [Ratio] 14.6 % High 11.5-14.5 [facility] ([place] Comment on above: Performed By: #### C AUR #### [place] [address] #### CRUR #### [place] [id number] Hematocrit (Bld) [Volume fraction] 30.4 % Low 42.0-52.0 [facility] ([place] Comment on above: Performed By: #### C AUR #### [place] [address] #### CRUR #### [address] [address] Hgb 10.2 G/dL Low 14.0-18.0 [facility] ([place] Comment on above: Performed By: #### C AUR #### [place] [address] #### CRUR #### [address] [address] MCH (RBC) [Entitic mass] 28.2 pg Normal 27.0-31.2 [facility] ([place] Comment on above: Performed By: #### C AUR #### [place] [address] #### CRUR #### [address] [address] MCHC 33.5 G/dL Normal 31.8-35.4 [facility] ([place] Comment on above: Performed By: #### C AUR #### [place] [address] #### CRUR #### [address] [address] MCV (RBC) [Entitic vol] 84.2 fL Normal 80.0-94.0 [facility] ([place] Comment on above: Performed By: #### C AUR #### [place] [address] #### CRUR #### [address] [address] Platelet 159 10 3/mcL Normal 130-400 [facility] ([place] Comment on above: Performed By: #### C AUR #### [place] [address] #### CRUR #### [address] [address] Platelet mean volume (Bld) [Entitic vol] 9.5 fL Normal 7.4-10.4 [facility] ([place] Comment on above: Performed By: #### C AUR #### [place] [address] #### CRUR #### [address] [address] RBC 3.61 10 6/mcL Low 4.04-6.13 [facility] ([place] Comment on above: Performed By: #### C AUR #### [place] [address] #### CRUR #### [address] [address] WBC 6.9 10 3/mcL Normal 4.6-10.8 [facility] [place] Comment on above: Performed By: #### C AUR #### [place] [address] #### CRUR #### [address] [address] CMPon 09-21-2022 Albumin Level 3.3 G/dL Low 3.4-4.8 [facility] ([place] Comment on above: Performed By: #### C AUR #### [place] [address] #### CRUR #### [address] [address] Albumin/Globulin [Mass ratio] 0.9 {ratio} Low 1.1-2.5 [facility] ([place] Comment on above: Performed By: #### C AUR #### [place] [address] #### CRUR #### [address] [address] ALP [Catalytic activity/Vol] 82 U/L Normal 40-135 [facility] ([place] Comment on above: Performed By: #### C AUR #### [place] [address] #### CRUR #### [address] [address] ALT [Catalytic activity/Vol] 13 U/L Low 16-63 [facility] ([place] Comment on above: Performed By: #### C AUR #### [place] [address] #### CRUR #### [address] [address] AST [Catalytic activity/Vol] 13 U/L Normal 10-40 [facility] ([place] Comment on above: Performed By: #### C AUR #### [place] [address] #### CRUR #### [address] [address] Bili Total 0.5 mg/dL Normal 0.2-1.0 [facility] ([place] Comment on above: Result Comment: Use of this assay is not recommended for patients undergoing treatment with eltrombopag due to the potential for falsely elevated results. Performed By: #### C AUR #### [place] [address] #### CRUR #### [address] [address] BUN/Creatinine Ratio 11 ratio Normal 7-27 [facility] ([place] Comment on above: Performed By: #### C AUR #### [place] [address] #### CRUR #### [address] [address] Calcium [Mass/Vol] 8.7 mg/dL Normal 8.4-10.2 [facility] ([place] Comment on above: Performed By: #### C AUR #### [place] [address] #### CRUR #### [address] [address] Chloride [Moles/Vol] 107 mmol/L Normal 98-107 [facility] ([place] Comment on above: Performed By: #### C AUR #### [place] [address] #### CRUR #### [address] [address] CO2 [Moles/Vol] 28 mmol/L Normal 23-31 [facility] ([place] Comment on above: Performed By: #### C AUR #### [place] [address] #### CRUR #### [address] [address] Creatinine [Mass/Vol] 1.18 mg/dL Normal 0.70-1.30 [facility] ([place] Comment on above: Performed By: #### C AUR #### [place] [address] #### CRUR #### [address] [address] Electrolyte Balance 8.0 mEq/L Normal 4.0-15.0 [facility] ([place] Comment on above: Performed By: #### C AUR #### [place] [address] #### CRUR #### [place] [address] Globulin 3.5 G/dL Normal [facility] ([place] Comment on above: Performed By: #### C AUR #### [place] [address] #### CRUR #### [place] [id number] Glucose [Mass/Vol] 123 mg/dL High 83-110 [facility] ([place] Comment on above: Performed By: #### C AUR #### [place] [address] #### CRUR #### [address] [address] Potassium [Moles/Vol] 3.8 mmol/L Normal 3.5-5.1 [facility] ([place] Comment on above: Performed By: #### C AUR #### [place] [address] #### CRUR #### [address] [address] Sodium [Moles/Vol] 143 mmol/L Normal 136-145 [facility] ([place] Comment on above: Performed By: #### C AUR #### [place] [address] #### CRUR #### [address] [address] Total Protein 6.8 G/dL Normal 6.4-8.2 [facility] ([place] Comment on above: Performed By: #### C AUR #### [address] [address] #### CRUR #### [facility] [address] [place], [place] [address] Urea nitrogen [Mass/Vol] 13 mg/dL Normal 7-18 [facility] ([place] Comment on above: Performed By: #### C AUR #### [address] [address] #### CRUR #### [place] [address] [place], [place] [address] LABORATORYOrdered By: SYSTEM SYSTEM on 09-21-2022 25-hydroxyvitamin D3 [Mass/Vol] 92.4 ng/mL Invalid Interpretation Code AO ADM SS Albumin BCP dye [Mass/Vol] 3.3 G/dL Invalid Interpretation Code 3.4 - 4.8 G/dL AO ADM SS Albumin/Globulin [Mass ratio] 0.9 {ratio} Invalid Interpretation Code 1.1 - 2.5 ratio AO ADM SS ALP [Catalytic activity/Vol] 82 U/L Invalid Interpretation Code 40 - 135 U/L AO ADM SS ALT With P-5'-P [Catalytic activity/Vol] 13 U/L Invalid Interpretation Code 16 - 63 U/L AO ADM SS AST With P-5'-P [Catalytic activity/Vol] 13 U/L Invalid Interpretation Code 10 - 40 U/L AO ADM SS Basophil, Absolute 0.0 103/mcL Invalid Interpretation Code 0.0 - 0.2 10^3/mcL AO Workflow SS Basophils/100 WBC (Bld) 0.4 % Invalid Interpretation Code 0.0 - 2.5 % AO Workflow SS Bilirubin [Mass/Vol] 0.5 mg/dL Invalid Interpretation Code 0.2 - 1.0 mg/dL AO ADM SS Calcium [Mass/Vol] 8.7 mg/dL Invalid Interpretation Code 8.4 - 10.2 mg/dL AO ADM SS Chloride [Moles/Vol] 107 mmol/L Invalid Interpretation Code 98 - 107 mmol/L AO ADM SS CO2 [Moles/Vol] 28 mmol/L Invalid Interpretation Code 23 - 31 mmol/L AO ADM SS Creatinine [Mass/Vol] 1.18 mg/dL Invalid Interpretation Code 0.70 - 1.30 mg/dL AO ADM SS Electrolyte Balance 8.0 mEq/L Invalid Interpretation Code 4.0 - 15.0 mEq/L AO ADM SS Eosinophil, Absolute 0.1 103/mcL Invalid Interpretation Code 0.0 - 0.4 10^3/mcL AO Workflow SS Eosinophils/100 WBC (Bld) 1.9 % Invalid Interpretation Code 0.0 - 7.0 % AO Workflow SS Erythrocyte distribution width (RBC) [Ratio] 14.6 % Invalid Interpretation Code 11.5 - 14.5 % AO Workflow SS GFR/1.73 sq M.predicted among blacks MDRD (S/P/Bld) [Vol rate/Area] 71 ml/min/1.73sqm Invalid Interpretation Code AO Chemistry S GFR/1.73 sq M.predicted among non-blacks MDRD (S/P/Bld) [Vol rate/Area] 59 ml/min/1.73sqm Invalid Interpretation Code AO Chemistry S Globulin 3.5 G/dL Invalid Interpretation Code AO ADM SS Glucose [Mass/Vol] 123 mg/dL Invalid Interpretation Code 83 - 110 mg/dL AO ADM SS HbA1c (Bld) [Mass fraction] 6.2 % Invalid Interpretation Code 4.3 - 6.4 % AO ADM SS Hematocrit (Bld) [Volume fraction] 30.4 % Invalid Interpretation Code 42.0 - 52.0 % AO Workflow SS Hemoglobin (Bld) [Mass/Vol] 10.2 G/dL Invalid Interpretation Code 14.0 - 18.0 G/dL AO Workflow SS Lymphocyte, Absolute 1.8 103/mcL Invalid Interpretation Code 0.8 - 3.9 10^3/mcL AO Workflow SS Lymphocytes/100 WBC (Bld) 26.3 % Invalid Interpretation Code 10.0 - 50.0 % AO Workflow SS MCH (RBC) [Entitic mass] 28.2 pg Invalid Interpretation Code 27.0 - 31.2 pg AO Workflow SS MCHC 33.5 G/dL Invalid Interpretation Code 31.8 - 35.4 G/dL AO Workflow SS MCV (RBC) [Entitic vol] 84.2 fL Invalid Interpretation Code 80.0 - 94.0 fL AO Workflow SS Monocyte, Absolute 0.7 103/mcL Invalid Interpretation Code 0.2 - 1.0 10^3/mcL AO Workflow SS Monocytes/100 WBC (Bld) 9.8 % Invalid Interpretation Code 1.7 - 13.0 % AO Workflow SS Neutrophil, Absolute 4.3 103/mcL Invalid Interpretation Code 2.9 - 6.2 10^3/mcL AO Workflow SS Neutrophils/100 WBC (Bld) 61.6 % Invalid Interpretation Code 37.0 - 80.0 % AO Workflow SS Platelet mean volume (Bld) [Entitic vol] 9.5 fL Invalid Interpretation Code 7.4 - 10.4 fL AO Workflow SS Platelets (Bld) [#/Vol] 159 103/mcL Invalid Interpretation Code 130 - 400 10^3/mcL AO Workflow SS Potassium [Moles/Vol] 3.8 mmol/L Invalid Interpretation Code 3.5 - 5.1 mmol/L AO ADM SS Protein [Mass/Vol] 6.8 G/dL Invalid Interpretation Code 6.4 - 8.2 G/dL AO ADM SS RBC (Bld) [#/Vol] 3.61 106/mcL Invalid Interpretation Code 4.04 - 6.13 10^6/mcL AO Workflow SS Sodium [Moles/Vol] 143 mmol/L Invalid Interpretation Code 136 - 145 mmol/L AO ADM SS TSH Qn 2.24 m[IU]/L Invalid Interpretation Code 0.36 - 3.74 mcIU/mL AO ADM SS Urea nitrogen [Mass/Vol] 13 mg/dL Invalid Interpretation Code 7 - 18 mg/dL AO ADM SS Urea nitrogen/Creatinine [Mass ratio] 11 ratio Invalid Interpretation Code 7 - 27 ratio AO ADM SS WBC (Bld) [#/Vol] 6.9 103/mcL Invalid Interpretation Code 4.6 - 10.8 10^3/mcL AO Workflow SS TSHon 09-21-2022 TSH Qn 2.24 m[IU]/L Normal 0.36-3.74 [facility] ([place] Comment on above: Performed By: #### C AUR #### [address] [address] #### KIRT #### [address] [address] [facility] Vit. D 25-Hydroxy 92.4 ng/mL Normal [facility] ([place] Comment on above: Result Comment: Inte rpretive Values Based on Total 25(OH) Vitamin D: Deficient <20 ng/mL Insufficient 20 - <30 ng/mL Sufficient 30-100 ng/mL Performed By: #### C AUR #### [place] [id number] [place] [address] #### CRUR #### [facility] [address] [place], [place] [address] Absolute lymphocyte countOrd ered By: Dr. Shahid on 08-11-2022 Lymphocytes Auto (Unsp spec) [#/Vol] 1.61 10*3/uL 0.83-4.[address] [facility] Basophil percentageOrdered B y: Dr. Shahid on 08-11-2022 Basophils/100 WBC (Bld) 0.2 % 0-[address] [facility] Bilirubin [Mass/Vol] 0.40 mg/dL 0.20-1.00 [facility] Comment on above: For patients on eltr ombopag therapy, use of Dimension [place] TBIL is not recommended. Chloride [Moles/Vol] 113 mmol/L 98-107 [facility] Eosinophils/100 WBC (Bld) 2.5 % 0-[address] [facility] Glucose [Mass/Vol] 141 mg/dL 74-106 [facility] Comment on above: Fasting Glucose resu lt greater than or equal to 126 mg/dL suggests DIABETES MELLITUS per A.D.A. criteria. Neutrophils (Bld) [#/Vol] 3.4 10*3/uL 2.0-7.[address] [facility] Neutrophils/100 WBC (Bld) 59.8 % 47-[address] [facility] Potassium [Moles/Vol] 3.5 mmol/L 3.5-5.1 [facility] [place] [facility] Protein [Mass/Vol] 4.7 g/dL 6.4-8.2 [facility] Sodium [Moles/Vol] 143 mmol/L 136-145 [facility] WBC (Bld) [#/Vol] 5.7 10*3/uL 4.4-11.0 [facility] Blood erythrocytes count (nu mber/volume)Ordered By: Dr. Shahid on 08-11-2022 RBC (Bld) [#/Vol] 3.07 10*6/uL 4.6-6.2 [facility] Blood hemoglobin measurement (mass/volume)Ordered By: Dr. Shahid on 08-11-2022 Hemoglobin (Bld) [Mass/Vol] 8.7 g/dL 13.0-16.[address] [facility] Blood lymphocytes/100 leukoc ytesOrdered By: Dr. Shahid on 08-11-2022 Lymphocytes/100 WBC (Bld) 28.2 % 19-[address] [facility] Blood monocytes/100 leukocyt esOrdered By: Dr. Shahid on 08-11-2022 Monocytes/100 WBC (Bld) 8.9 % 0-[address] [facility] Blood platelet mean volumeOr dered By: Dr. Shahid on 08-11-2022 Platelet mean volume (Bld) [Entitic vol] 12.4 fL 6.2-12.[address] [facility] Determination of erythrocyte mean corpuscular volume (MCV)Ordered By: Dr. Shahid on 08-11-2022 MCV (RBC) [Entitic vol] 86.3 fL 80-[address] [facility] Glucose Glucometer (BldC) [M ass/Vol]Ordered By: Dr. López on 08-11-2022 Glucose [Mass/Vol] 219 mg/dL 74-106 [facility] Comment on above: MANAGEMENT OF PATIEN T CARE PER NURSING PROTOCOL Hematocrit Auto (Bld) [Volum e fraction]Ordered By: Dr. Shahid on 08-11-2022 Hematocrit (Bld) [Volume fraction] 26.5 % 40-[address] [facility] Laboratory - Chemistry and C hemistry - challengeOrdered By: Dr. Shahid on 08-11-2022 ALP [Catalytic activity/Vol] 53 U/L 45-[address] [facility] ALT [Catalytic activity/Vol] 7 U/L 16-[address] [facility] CO2 [Moles/Vol] 24.0 mmol/L 21.0-32.[address] [facility] Globulin (S) [Mass/Vol] 2.6 g/dL 2.2-4.[address] [facility] Urea nitrogen/Creatinine [Mass ratio] 15.2 mg/mg 10-[address] [facility] Laboratory - Hematology and Cell countsOrdered By: Dr. Shahid on 08-11-2022 Erythrocyte distribution width (RBC) [Entitic vol] 45.0 fL 35.1-43.9 [facility] Erythrocyte distribution width (RBC) [Ratio] 14.5 % 11.6-14.[address] [facility] Immature granulocytes/100 WBC (Bld) 0.400 % 0.0-0.[address] [facility] Comment on above: IG% - Immature Granu locytes (promyelocytes, myelocytes and metamyelocytes) > 1% indicates that a LEFT SHIFT is Present. MCH (RBC) [Entitic mass] 28.3 pg 27.0-32.[address] [facility] Nucleated RBC/100 WBC (Bld) [Ratio] 0 % 0-[address] [facility] MCHC Auto (RBC) [Mass/Vol]Or dered By: Dr. Shahid on 08-11-2022 MCHC (RBC) [Mass/Vol] 32.8 g/dL 32-36 [facility] [place] [facility] No Panel InformationOrdered By: Dr. Shahid on 08-11-2022 Estimated Creatinine Clearance Calc 47.12 ml/min [facility] Estimated GFR (MDRD) Amer 71 mL/min >[address] [facility] Comment on above: GFR Calc Estimated GFR (MDRD) Non-Af Amer 59 mL/min >[address] [facility] Comment on above: Non- GFR Calc Platelets bldOrdered By: Dr. Shahid on 08-11-2022 Platelets (Bld) [#/Vol] 89 10*3/uL 150-[address] [facility] Serum or plasma albumin rosalio urement (mass/volume)Ordered By: Dr. Shahid on 08-11-2022 Albumin [Mass/Vol] 2.1 g/dL 3.2-5.0 [facility] Serum or plasma albumin/glob ulin mass ratioOrdered By: Dr. Shahid on 08-11-2022 Albumin/Globulin [Mass ratio] 0.8 {ratio} 0.9-2.[address] [facility] Serum or plasma calcium rosalio urement (mass/volume)Ordered By: Dr. Shahid on 08-11-2022 Calcium [Mass/Vol] 7.3 mg/dL 8.5-10.1 [facility] Serum or plasma creatinine m easurement (mass/volume)Ordered By: Dr. Shahid on 08-11-2022 Creatinine [Mass/Vol] 1.25 mg/dL 0.70-1.30 [facility] [place] [facility] Comment on above: The validity of the calculated GFR & GFRAA in patients over 70 years has not been determined. Clinical correlation is essential. Serum or plasma urea nitroge n measurement (mass/volume)Ordered By: Dr. Shahid on 08-11-2022 Urea nitrogen [Mass/Vol] 19 mg/dL 7-[address] [facility] Thin prep Papanicolaou smear with manual screeningOrdered By: Dr. Shahid on 08-11-2022 Thin prep Papanicolaou smear with manual screening 5 U/L 15-[address] [facility] Thin prep Papanicolaou smear with manual screening 6 5-[address] [facility] INR in Blood by Coagulation assayOrdered By: Dr. Barth on 08-09-2022 INR Coag (Bld) [Relative time] 1.3 {INR} [facility] Laboratory - CoagulationOrde red By: Dr. Barth on 08-09-2022 aPTT Coag (Bld) [Time] 27.2 s 24.1-36.2 [facility] PT Coag (PPP) [Time] 15.9 s 11.7-14.9 [facility] Blood platelet adequacy dete ction by light microscopyOrdered By: Dr. Muse on 08-08-2022 Platelets LM Ql (Bld) MOD DEC ADEQ [facility] Whole blood hemoglobin A1c/t otal hemoglobin ratio (mass fraction)Ordered By: Dr. Shahid on 08-08-2022 HbA1c (Bld) [Mass fraction] 5.9 % 3.8-5.[address] [facility] Comment on above: Normal < 5.7 % Predi abetic 5.7 - 6.4 % Diabetic >or= 6.5 % Please note range changes. Absolute lymphocyte countOrd ered By: Dr. Stoll on 08-07-2022 Lymphocytes Auto (Unsp spec) [#/Vol] 2.39 10*3/uL 0.83-4.[address] [facility] Basophil percentageOrdered B y: Dr. Stoll on 08-07-2022 Basophils/100 WBC (Bld) 0.1 % 0-[address] [facility] Bilirubin [Mass/Vol] 0.70 mg/dL 0.20-1.00 [facility] Comment on above: For patients on eltr ombopag therapy, use of Dimension [place] TBIL is not recommended. Chloride [Moles/Vol] 109 mmol/L 98-107 [facility] Eosinophils/100 WBC (Bld) 0.3 % 0-[address] [facility] Glucose [Mass/Vol] 179 mg/dL 74-106 [facility] Comment on above: Fasting Glucose resu lt greater than or equal to 126 mg/dL suggests DIABETES MELLITUS per A.D.A. criteria. Neutrophils (Bld) [#/Vol] 7.2 10*3/uL 2.0-7.[address] [facility] Neutrophils/100 WBC (Bld) 70.4 % 47-[address] [facility] Potassium [Moles/Vol] 4.2 mmol/L 3.5-5.1 [facility] Protein [Mass/Vol] 5.8 g/dL 6.4-8.2 [facility] Sodium [Moles/Vol] 142 mmol/L 136-145 [facility] WBC (Bld) [#/Vol] 10.3 10*3/uL 4.4-11.0 [facility] Blood erythrocytes count (nu mber/volume)Ordered By: Dr. Stoll on 08-07-2022 RBC (Bld) [#/Vol] 3.18 10*6/uL 4.6-6.2 [facility] Blood hemoglobin measurement (mass/volume)Ordered By: Dr. Stoll on 08-07-2022 Hemoglobin (Bld) [Mass/Vol] 9.0 g/dL 13.0-16.[address] [facility] Blood lymphocytes/100 leukoc ytesOrdered By: Dr. Stoll on 08-07-2022 Lymphocytes/100 WBC (Bld) 23.3 % 19-[address] [facility] Blood monocytes/100 leukocyt esOrdered By: Dr. Stoll on 08-07-2022 Monocytes/100 WBC (Bld) 5.7 % 0-[address] [facility] Blood platelet mean volumeOr dered By: Dr. Stoll on 08-07-2022 Platelet mean volume (Bld) [Entitic vol] 12.7 fL 6.2-12.[address] [facility] Determination of erythrocyte mean corpuscular volume (MCV)Ordered By: Dr. Stoll on 08-07-2022 MCV (RBC) [Entitic vol] 86.2 fL 80-[address] [facility] Hematocrit Auto (Bld) [Volum e fraction]Ordered By: Dr. Stoll on 08-07-2022 Hematocrit (Bld) [Volume fraction] 27.4 % 40-[address] [facility] INR in Blood by Coagulation assayOrdered By: Dr. Stoll on 08-07-2022 INR Coag (Bld) [Relative time] 1.4 {INR} [facility] Laboratory - Chemistry and C hemistry - challengeOrdered By: Dr. Stoll on 08-07-2022 ALP [Catalytic activity/Vol] 58 U/L 45-[address] [facility] ALT [Catalytic activity/Vol] 9 U/L 16-[address] [facility] CO2 [Moles/Vol] 24.0 mmol/L 21.0-32.[address] [facility] Globulin (S) [Mass/Vol] 3.2 g/dL 2.2-4.[address] [facility] Lipase [Catalytic activity/Vol] 18 U/L 13-[address] [facility] Comment on above: Please note:LIPASE r evised reference range effective 22. New Lipase methodology. Expected to produce lower values than the previous assay method. NEW Reference Range: 13 - 75 U/L Urea nitrogen/Creatinine [Mass ratio] 17.8 mg/mg 10-[address] [facility] Laboratory - CoagulationOrde red By: Dr. Stoll on 08-07-2022 aPTT Coag (Bld) [Time] 30.0 s 24.1-36.2 [facility] PT Coag (PPP) [Time] 17.0 s 11.7-14.9 [facility] Laboratory - Hematology and Cell countsOrdered By: Dr. Stoll on 08-07-2022 Erythrocyte distribution width (RBC) [Entitic vol] 42.3 fL 35.1-43.[address] [facility] Erythrocyte distribution width (RBC) [Ratio] 13.4 % 11.6-14.[address] [facility] Immature granulocytes/100 WBC (Bld) 0.200 % 0.0-0.[address] [facility] Comment on above: IG% - Immature Granu locytes (promyelocytes, myelocytes and metamyelocytes) > 1% indicates that a LEFT SHIFT is Present. MCH (RBC) [Entitic mass] 28.3 pg 27.0-32.[address] [facility] Nucleated RBC/100 WBC (Bld) [Ratio] 0 % 0-[address] [facility] Lower GI hemoglobin IA Ql (S tl)Ordered By: Dr. Stoll on 08-07-2022 Stool Occult Blood (HAJA) Positive [facility] MCHC Auto (RBC) [Mass/Vol]Or dered By: Dr. Stoll on 08-07-2022 MCHC (RBC) [Mass/Vol] 32.8 g/dL 32-36 [facility] No Panel InformationOrdered By: Dr. Stoll on 08-07-2022 Estimated Creatinine Clearance Calc 46.40 ml/min [facility] Estimated GFR (MDRD) Amer 68 mL/min >[address] [facility] Comment on above: GFR Calc Estimated GFR (MDRD) Non-Af Amer 56 mL/min >[address] [facility] Comment on above: Non- GFR Calc Troponin I High Sensitivity 7 pg/mL 3.0-78.[address] [facility] Comment on above: Please Note: New Shruthi t Units and Gender Specific Reference Ranges. For more information see Policy Stat Procedure [place] High Sensitivity Troponin (TNIH) and attachments. Platelets bldOrdered By: Dr. Stoll on 08-07-2022 Platelets (Bld) [#/Vol] 118 10*3/uL 150-[address] [facility] Serum or plasma albumin rosalio urement (mass/volume)Ordered By: Dr. Stoll on 08-07-2022 Albumin [Mass/Vol] 2.6 g/dL 3.2-5.0 [facility] Serum or plasma albumin/glob ulin mass ratioOrdered By: Dr. Stoll on 08-07-2022 Albumin/Globulin [Mass ratio] 0.8 {ratio} 0.9-2.[address] [facility] Serum or plasma calcium rosalio urement (mass/volume)Ordered By: Dr. Stoll on 08-07-2022 Calcium [Mass/Vol] 7.7 mg/dL 8.5-10.1 [facility] Serum or plasma creatinine m easurement (mass/volume)Ordered By: Dr. Stoll on 08-07-2022 Creatinine [Mass/Vol] 1.29 mg/dL 0.70-1.30 [facility] Comment on above: The validity of the calculated GFR & GFRAA in patients over 70 years has not been determined. Clinical correlation is essential. Serum or plasma urea nitroge n measurement (mass/volume)Ordered By: Dr. Stoll on 08-07-2022 Urea nitrogen [Mass/Vol] 23 mg/dL 7-[address] [facility] Thin prep Papanicolaou smear with manual screeningOrdered By: Dr. Stoll on 08-07-2022 Thin prep Papanicolaou smear with manual screening 11 U/L 15-[address] [facility] Thin prep Papanicolaou smear with manual screening 9 5-[address] [facility] CNPNon 07-18-2022 [facility] (PREANME) ---- RONNIE LEE ([id number]) 1940 Date Time Provider Department 07/18/22 ANISHA GONZALEZ During your visit today, we recorded the following information about you: Anisha Gonzalez PA-C 07/18/2022 1:52 [address] Good Afternoon Dr. Lloyd, I am scheduled to see Mr. Lee for a pre-anesthesia visit tomorrow (07/19/22). He is scheduled for a colonoscopy and EGD with Dr. Mccann on 07/26/22 at [facility]. Does he need to hold his ibrutinub prior to the procedure? I am unfamiliar with this drug and unsure if necessary to hold for a low risk procedure. Thank you for your assistance. Anisha Dial [facility] Office: [phone] Stu Lloyd, 07/18/2022 1:58 PM Signed I would ask him to hold it 3 days prior to and then 3 days after the colonoscopy. DO Naheed Buckley RN 07/18/2022 3:07 PM Signed [facility] Care Coordination FOLLOW-UP NOTE Patient identified by name and date of . YES Spoke to spouse Care Coordination Plan: Patients informed of Dr. Lloyd's response regarding holding ibrutinib. verbalized an understanding of discussed information. Naheed Grimm RN July 18, 2022 Allergies As of Date: 07/18/2022 Noted Allergy Reaction artificial sweetener [Other] 04/18/2011 14 - Other: See Comments Comments: headache AVANDAMET (ROSIGLITAZONE-METF ORMI*04/18/2011 14 - Other: See Comments Comments: refuses IODINE 04/18/2011 10 - Anaphylaxis OXYCODONE 07/19/2017 8 - GI Upset 11 - Vomiting Comments: Dizziness PROMETHAZINE-CODEIN E 04/18/2011 14 - Other: See Comments Comments: Low BP Date Reviewed: 07/04/2022 Reviewed by: Gosia Ruff - Fully Assessed Reason for Visit: Medication Question [1478] Prescriptions as of 07/18/2022 - rosuvastatin (CRESTOR) 5 mg tablet Take 5 mg by mouth once daily. - pantoprazole DR (PROTONIX) 40 mg tablet Take 1 tablet by mouth once daily. - sacubitril-valsarta n (ENTRESTO) 24-26 mg tablet Take by mouth twice daily. - ibrutinib (IMBRUVICA) 140 mg capsule Take 1 capsule (140mg) by mouth once daily with a glass of water. - OTC PRODUCT 1,000 mg twice daily. Tumeric complex - Lancets lancets Test blood sugar(s) 1 times daily. Dx: Type 2 DM - Controlled E11.9 Insulin: No - blood sugar diagnostic (BLOOD GLUCOSE TEST) test strip Test blood sugar(s) 1 times daily. Dx: Type 2 DM - Controlled E11.9 Insulin: No - sotalol (BETAPACE) 80 mg tablet Take 1 1/2 tablets by mouth twice daily. - apixaban (ELIQUIS) 5 mg tab(s) Take 5 mg by mouth twice daily. - cyanocobalamin (VITAMIN B-12) 1,000 mcg tab Take 1,000 mcg by mouth once daily. - VITAMIN B COMPLEX-100 ORAL Take 1 tablet by mouth once daily. - clopidogrel (PLAVIX) 75 mg tablet Take 75 mg by mouth once daily. - SITagliptin-metFORM IN (JANUMET) 50-1,000 mg per tablet Take 0.5 tablets by mouth twice daily. - UBIDECARENONE (COQ-10 ORAL) Take 400 mg by mouth once daily. Problem List As Of Date 07/18/2022 Noted Resolved Lymphocytosis (symptomatic) [D72.820] 04/18/2011 09/25/2016 CLL (chronic lymphocytic leukemia) ([facility]) [C91.1*05/12/2011 Chronic atrial fibrillation (HCC) [I48.20] 12/02/2018 GERD without esophagitis [K21.9] 12/02/2018 Mixed hyperlipidemia [E78.2] 12/02/2018 Coronary artery disease due to lipid rich plaqu*12/02/2018 Status post coronary artery stent placement [Z9*12/02/2018 Type 2 diabetes mellitus with chronic kidney di*12/02/2018 Iron deficiency anemia due to chronic blood los*12/04/2018 Iron malabsorption [K90.9] 12/04/2018 PAD (peripheral artery disease) ([facility]) [I73.9] 07/28/2020 Stage 3 chronic kidney disease ([facility]) [N18.30] 12/13/2020 ICD (implantable cardioverter-defibr illator) in*12/12/2021 Ischemic cardiomyopathy [I25.5] 12/12/2021 Platelets decreased ([facility]) [D69.6] 07/04/2022 Acute combined systolic and diastolic heart jeramy*07/04/2022 Encounter Status:Closed by NAHEED GRIMM on 07/18/22 Normal [facility] HbA1c (Bld)on 07-07-2022 HbA1c (Bld) [Mass fraction] 5.8 % 4 - 6 % [facility] .GFRon 06-15-2022 GFR 60 ml/min/1.73sqm Normal [facility] ([place]) Comment on above: Result Comment: GFR Population mean for , Non- Americans Ages 20-29 = 116 mL/min/1.73 sq.m. Ages 30-39 = 107 mL/min/1.73 sq.m. Ages 40-49 = 99 mL/min/1.73 sq.m. Ages 50-59 = 93 mL/min/1.73 sq.m. Ages 60-69 = 85 mL/min/1.73 sq.m. Ages 70+ = 75 mL/min/1.73 sq.m. Chronic Kidney Disease: Less than 60 mL/min/1.73 square meters End Stage Renal Disease: Less than 15 mL/min/1.73 square meters Performed By: #### M G, CMP, LIPID, PHOS, VIDH, TSH, GFR, CAION, A1C #### [address] [address] GFR Non- 50 ml/min/1.73sqm Normal [facility] ([place]) Comment on above: Result Comment: GFR Population mean for , Non- Americans Ages 20-29 = 116 mL/min/1.73 sq.m. Ages 30-39 = 107 mL/min/1.73 sq.m. Ages 40-49 = 99 mL/min/1.73 sq.m. Ages 50-59 = 93 mL/min/1.73 sq.m. Ages 60-69 = 85 mL/min/1.73 sq.m. Ages 70+ = 75 mL/min/1.73 sq.m. Chronic Kidney Disease: Less than 60 mL/min/1.73 square meters End Stage Renal Disease: Less than 15 mL/min/1.73 square meters Performed By: #### M G, CMP, LIPID, PHOS, VIDH, TSH, GFR, CAION, A1C #### [address] [address] A1Con 06-15-2022 HbA1c (Bld) [Mass fraction] 5.8 % Normal 4.3-6.4 [facility] ([place]) Comment on above: Performed By: #### M G, CMP, LIPID, PHOS, VIDH, TSH, GFR, CAION, A1C #### [address] [address] CAIONon 06-15-2022 Calcium Ionized 1.23 mmol/L Normal 1.12-1.32 [facility] ([place]) Comment on above: Performed By: #### M G, CMP, LIPID, PHOS, VIDH, TSH, GFR, CAION, A1C #### [address] [address] CAURon 06-15-2022 Calcium [Mass/Vol] 2.0 mg/dL Normal [facility] ([place]) Comment on above: Performed By: #### C AUR #### [address] [address] #### CRUR #### [address] [address] CMPon 06-15-2022 Albumin Level 3.4 G/dL Normal 3.4-4.8 [facility] ([place]) Comment on above: Performed By: #### M G, CMP, LIPID, PHOS, VIDH, TSH, GFR, CAION, A1C #### [address] [address] Albumin/Globulin [Mass ratio] 1.0 {ratio} Low 1.1-2.5 [facility] ([place] Comment on above: Performed By: #### M G, CMP, LIPID, PHOS, VIDH, TSH, GFR, CAION, A1C #### [address] [address] ALP [Catalytic activity/Vol] 71 U/L Normal 40-135 [facility] ([place] Comment on above: Performed By: #### M G, CMP, LIPID, PHOS, VIDH, TSH, GFR, CAION, A1C #### [address] [address] ALT [Catalytic activity/Vol] 16 U/L Normal 16-63 [facility] ([place] Comment on above: Performed By: #### M G, CMP, LIPID, PHOS, VIDH, TSH, GFR, CAION, A1C #### [address] [address] AST [Catalytic activity/Vol] 14 U/L Normal 10-40 [facility] ([place]) Comment on above: Performed By: #### M G, CMP, LIPID, PHOS, VIDH, TSH, GFR, CAION, A1C #### [address] [address] Bili Total 0.5 mg/dL Normal 0.2-1.0 [facility] ([place]) Comment on above: Result Comment: Use of this assay is not recommended for patients undergoing treatment with eltrombopag due to the potential for falsely elevated results. Performed By: #### M G, CMP, LIPID, PHOS, VIDH, TSH, GFR, CAION, A1C #### [address] [address] BUN/Creatinine Ratio 18 ratio Normal 7-27 [facility] ([place]) Comment on above: Performed By: #### M G, CMP, LIPID, PHOS, VIDH, TSH, GFR, CAION, A1C #### [address] [address] Calcium [Mass/Vol] 8.5 mg/dL Normal 8.4-10.2 [facility] ([place]) Comment on above: Performed By: #### M G, CMP, LIPID, PHOS, VIDH, TSH, GFR, CAION, A1C #### [address] [address] Chloride [Moles/Vol] 107 mmol/L Normal 98-107 [facility] ([place]) Comment on above: Performed By: #### M G, CMP, LIPID, PHOS, VIDH, TSH, GFR, CAION, A1C #### [address] [address] CO2 [Moles/Vol] 24 mmol/L Normal 23-31 [facility] ([place] Comment on above: Performed By: #### M G, CMP, LIPID, PHOS, VIDH, TSH, GFR, CAION, A1C #### [address] [address] Creatinine [Mass/Vol] 1.37 mg/dL High 0.70-1.30 [facility] ([place]) Comment on above: Performed By: #### M G, CMP, LIPID, PHOS, VIDH, TSH, GFR, CAION, A1C #### [address] [address] Electrolyte Balance 10.0 mEq/L Normal 4.0-15.0 [facility] ([place]) Comment on above: Performed By: #### M G, CMP, LIPID, PHOS, VIDH, TSH, GFR, CAION, A1C #### [address] [address] Globulin 3.5 G/dL Normal [facility] ([place] Comment on above: Performed By: #### M G, CMP, LIPID, PHOS, VIDH, TSH, GFR, CAION, A1C #### [address] [address] Glucose [Mass/Vol] 72 mg/dL Low 83-110 [facility] ([place]) Comment on above: Performed By: #### M G, CMP, LIPID, PHOS, VIDH, TSH, GFR, CAION, A1C #### [address] [address] Potassium [Moles/Vol] 4.3 mmol/L Normal 3.5-5.1 [facility] ([place]) Comment on above: Performed By: #### M G, CMP, LIPID, PHOS, VIDH, TSH, GFR, CAION, A1C #### [address] [address] Sodium [Moles/Vol] 141 mmol/L Normal 136-145 [facility] ([place]) Comment on above: Performed By: #### M G, CMP, LIPID, PHOS, VIDH, TSH, GFR, CAION, A1C #### [address] [address] Total Protein 6.9 G/dL Normal 6.4-8.2 [facility] ([place] Comment on above: Performed By: #### M G, CMP, LIPID, PHOS, VIDH, TSH, GFR, CAION, A1C #### [address] [address] Urea nitrogen [Mass/Vol] 24 mg/dL High 7-18 [facility] ([place] Comment on above: Performed By: #### M G, CMP, LIPID, PHOS, VIDH, TSH, GFR, CAION, A1C #### [address] [place], [place] [address] CREATININE RANDOM URINE (AK, AV,EU,FV,HL,BAM,MM,SP)on 06-15-2022 Creatinine (U) [Mass/Vol] 104 mg/dL 10 - 300 mg/dL [facility] CRURon 06-15-2022 U Creatinine 104.0 mg/dL Normal 39.0-259.0 [facility] ([place]) Comment on above: Performed By: #### C AUR #### [place] [address] #### CRUR #### [address] [place], [place] [address] LABORATORYOrdered By: Adrianne Augustine on 06-15-2022 Calcium (U) [Mass/Vol] 2.0 mg/dL Invalid Interpretation Code AH ADM SS LABORATORYOrdered By: SYSTEM SYSTEM on 06-15-2022 Creatinine (U) [Mass/Vol] 104.0 mg/dL Invalid Interpretation Code 39.0 - 259.0 mg/dL AO ADM SS Albumin BCP dye [Mass/Vol] 3.4 G/dL Invalid Interpretation Code 3.4 - 4.8 G/dL AO ADM SS Albumin/Globulin [Mass ratio] 1.0 {ratio} Invalid Interpretation Code 1.1 - 2.5 ratio AO ADM SS ALP [Catalytic activity/Vol] 71 U/L Invalid Interpretation Code 40 - 135 U/L AO ADM SS ALT With P-5'-P [Catalytic activity/Vol] 16 U/L Invalid Interpretation Code 16 - 63 U/L AO ADM SS AST With P-5'-P [Catalytic activity/Vol] 14 U/L Invalid Interpretation Code 10 - 40 U/L AO ADM SS Bilirubin [Mass/Vol] 0.5 mg/dL Invalid Interpretation Code 0.2 - 1.0 mg/dL AO ADM SS Calcium [Mass/Vol] 8.5 mg/dL Invalid Interpretation Code 8.4 - 10.2 mg/dL AO ADM SS Chloride [Moles/Vol] 107 mmol/L Invalid Interpretation Code 98 - 107 mmol/L AO ADM SS CO2 [Moles/Vol] 24 mmol/L Invalid Interpretation Code 23 - 31 mmol/L AO ADM SS Creatinine [Mass/Vol] 1.37 mg/dL Invalid Interpretation Code 0.70 - 1.30 mg/dL AO ADM SS Electrolyte Balance 10.0 mEq/L Invalid Interpretation Code 4.0 - 15.0 mEq/L AO ADM SS GFR 60 ml/min/1.73sqm Invalid Interpretation Code AO Chemistry S GFR Non- 50 ml/min/1.73sqm Invalid Interpretation Code AO Chemistry S Globulin 3.5 G/dL Invalid Interpretation Code AO ADM SS Glucose [Mass/Vol] 72 mg/dL Invalid Interpretation Code 83 - 110 mg/dL AO ADM SS HbA1c (Bld) [Mass fraction] 5.8 % Invalid Interpretation Code 4.3 - 6.4 % AO ADM SS Magnesium [Mass/Vol] 1.5 mg/dL Invalid Interpretation Code 1.8 - 2.4 mg/dL AO ADM SS Phosphate [Mass/Vol] 3.3 mg/dL Invalid Interpretation Code 2.3 - 4.1 mg/dL AO ADM SS Potassium [Moles/Vol] 4.3 mmol/L Invalid Interpretation Code 3.5 - 5.1 mmol/L AO ADM SS Protein [Mass/Vol] 6.9 G/dL Invalid Interpretation Code 6.4 - 8.2 G/dL AO ADM SS Sodium [Moles/Vol] 141 mmol/L Invalid Interpretation Code 136 - 145 mmol/L AO ADM SS TSH Qn 2.44 m[IU]/L Invalid Interpretation Code 0.36 - 3.74 mcIU/mL AO ADM SS Urea nitrogen [Mass/Vol] 24 mg/dL Invalid Interpretation Code 7 - 18 mg/dL AO ADM SS Urea nitrogen/Creatinine [Mass ratio] 18 ratio Invalid Interpretation Code 7 - 27 ratio AO ADM SS Vit. D 25-Hydroxy 123.3 ng/mL Invalid Interpretation Code AO ADM SS LABORATORYOrdered By: Aaron Boo on 06-15-2022 Calcium.ionized (Bld) [Moles/Vol] 1.23 mmol/L Invalid Interpretation Code 1.12 - 1.32 mmol/L AO Blood Gas SS LIPIDon 06-15-2022 Cholesterol [Mass/Vol] 129 mg/dL Normal 0-200 [facility] ([place]) Comment on above: Result Comment: Chol esterol Reference Interval: Less than 200 Desirable 200-239 Borderline high risk 240 and above High risk Performed By: #### C AUR #### [place] [address] #### CRUR #### [address] [address] Cholesterol in HDL [Mass/Vol] 47 mg/dL Normal 40-60 [facility] ([place] Comment on above: Performed By: #### C AUR #### [place] [address] #### CRUR #### [address] [address] Cholesterol in LDL [Mass/Vol] 69 mg/dL Normal 0-130 [facility] ([place] Comment on above: Performed By: #### C AUR #### [place] [address] #### CRUR #### [address] [address] Triglyceride [Mass/Vol] 64 mg/dL Normal 0-150 [facility] ([place] Comment on above: Result Comment: Trig lyceride Reference Interval: Less than 150 Normal 150-199 Borderline high risk 200-499 High risk 500 or higher Very high risk Performed By: #### C AUR #### [place] [address] #### CRUR #### [address] [address] Laboratory - Chemistry and C hemistry - challengeOrdered By: Mikaela Aguilar on 06-15-2022 Cholesterol [Mass/Vol] 129 mg/dL 0 - 200 MG/DL AO ADM SS Cholesterol in HDL [Mass/Vol] 47 mg/dL 40 - 59 MG/DL AO ADM SS Cholesterol in LDL [Mass/Vol] 69 mg/dL AO ADM SS Triglyceride [Mass/Vol] 64 mg/dL AO ADM SS MGon 06-15-2022 Magnesium [Mass/Vol] 1.5 mg/dL Low 1.8-2.4 [facility] ([place]) Comment on above: Performed By: #### M G, CMP, LIPID, PHOS, VIDH, TSH, GFR, CAION, A1C #### [address] [address] PHOSon 06-15-2022 Phosphate [Mass/Vol] 3.3 mg/dL Normal 2.3-4.1 [facility] ([place]) Comment on above: Performed By: #### M G, CMP, LIPID, PHOS, VIDH, TSH, GFR, CAION, A1C #### [address] [address] TSHon 06-15-2022 TSH Qn 2.44 m[IU]/L Normal 0.36-3.74 [facility] ([place]) Comment on above: Performed By: #### M G, CMP, LIPID, PHOS, VIDH, TSH, GFR, CAION, A1C #### [address] [address] VIDHon 06-15-2022 Vit. D 25-Hydroxy 123.3 ng/mL Normal [facility] ([place]) Comment on above: Result Comment: Inte rpretive Values Based on Total 25(OH) Vitamin D: Deficient <20 ng/mL Insufficient 20 - <30 ng/mL Sufficient 30-100 ng/mL Performed By: #### M G, CMP, LIPID, PHOS, VIDH, TSH, GFR, CAION, A1C #### [address] [address] FERRITIN BLDon 06-05-2022 Ferritin [Mass/Vol] 25.5 ng/mL Low 30.3 - 5 65.7 ng/mL [facility] Iron and Iron binding capaci ty panelon 06-05-2022 Iron [Mass/Vol] 57 ug/dL 41 - 186 ug/dL [facility] Iron binding capacity [Mass/Vol] 305 ug/dL 232 - 386 ug/dL [facility] Iron/TIBC [Molar ratio] 18.7 % 15.0 - 57.0 % [facility] RETIC COUNTon 06-05-2022 Reticulocytes (Bld) [#/Vol] 0.38036 10*3/uL 0.018 - 0.100 M/uL [facility] Reticulocytes (Bld) [#/Vol]o n 03-27-2023 Reticulocytes/100 RBC (Bld) 1.4 % 0.4 - 2.0 % [facility] LABORATORYOrdered By: Lily Schrader on 12-08-2021 Albumin BCP dye [Mass/Vol] 3.4 G/dL Invalid Interpretation Code 3.4 - 4.8 G/dL AO ADM SS Albumin/Globulin [Mass ratio] 1.0 {ratio} Invalid Interpretation Code 1.1 - 2.5 ratio AO ADM SS ALP [Catalytic activity/Vol] 77 U/L Invalid Interpretation Code 40 - 135 U/L AO ADM SS ALT With P-5'-P [Catalytic activity/Vol] 12 U/L Invalid Interpretation Code 16 - 63 U/L AO ADM SS AST With P-5'-P [Catalytic activity/Vol] 9 U/L Invalid Interpretation Code 10 - 40 U/L AO ADM SS Bilirubin [Mass/Vol] 0.6 mg/dL Invalid Interpretation Code 0.2 - 1.0 mg/dL AO ADM SS Calcium [Mass/Vol] 8.3 mg/dL Invalid Interpretation Code 8.4 - 10.2 mg/dL AO ADM SS Chloride [Moles/Vol] 104 mmol/L Invalid Interpretation Code 98 - 107 mmol/L AO ADM SS CO2 [Moles/Vol] 27 mmol/L Invalid Interpretation Code 23 - 31 mmol/L AO ADM SS Creatinine [Mass/Vol] 1.58 mg/dL Invalid Interpretation Code 0.70 - 1.30 mg/dL AO ADM SS Electrolyte Balance 8.0 mEq/L Invalid Interpretation Code 4.0 - 15.0 mEq/L AO ADM SS Globulin 3.5 G/dL Invalid Interpretation Code AO ADM SS Glucose [Mass/Vol] 126 mg/dL Invalid Interpretation Code 83 - 110 mg/dL AO ADM SS HbA1c (Bld) [Mass fraction] 6.7 % Invalid Interpretation Code 4.3 - 6.4 % AO ADM SS Potassium [Moles/Vol] 4.6 mmol/L Invalid Interpretation Code 3.5 - 5.1 mmol/L AO ADM SS Protein [Mass/Vol] 6.9 G/dL Invalid Interpretation Code 6.4 - 8.2 G/dL AO ADM SS Sodium [Moles/Vol] 139 mmol/L Invalid Interpretation Code 136 - 145 mmol/L AO ADM SS TSH Qn 1.74 m[IU]/L Invalid Interpretation Code 0.36 - 3.74 mcIU/mL AO ADM SS Urea nitrogen [Mass/Vol] 27 mg/dL Invalid Interpretation Code 7 - 18 mg/dL AO ADM SS Urea nitrogen/Creatinine [Mass ratio] 17 ratio Invalid Interpretation Code 7 - 27 ratio AO ADM SS Vit. D 25-Hydroxy 135.7 ng/mL Invalid Interpretation Code AO ADM SS LABORATORYOrdered By: SYSTEM SYSTEM on 12-08-2021 GFR 51 ml/min/1.73sqm Invalid Interpretation Code AO Chemistry S GFR Non- 42 ml/min/1.73sqm Invalid Interpretation Code AO Chemistry S LABORATORYOrdered By: Lily Schrader on 08-16-2021 Albumin BCP dye [Mass/Vol] 3.7 G/dL Invalid Interpretation Code 3.4 - 4.8 G/dL AO ADM SS Albumin/Globulin [Mass ratio] 1.0 {ratio} Invalid Interpretation Code 1.1 - 2.5 ratio AO ADM SS ALP [Catalytic activity/Vol] 73 U/L Invalid Interpretation Code 40 - 135 U/L AO ADM SS ALT With P-5'-P [Catalytic activity/Vol] 12 U/L Invalid Interpretation Code 16 - 63 U/L AO ADM SS AST With P-5'-P [Catalytic activity/Vol] 12 U/L Invalid Interpretation Code 10 - 40 U/L AO ADM SS Bilirubin [Mass/Vol] 0.6 mg/dL Invalid Interpretation Code 0.2 - 1.0 mg/dL AO ADM SS Calcium [Mass/Vol] 9.2 mg/dL Invalid Interpretation Code 8.4 - 10.2 mg/dL AO ADM SS Chloride [Moles/Vol] 105 mmol/L Invalid Interpretation Code 98 - 107 mmol/L AO ADM SS CO2 [Moles/Vol] 22 mmol/L Invalid Interpretation Code 23 - 31 mmol/L AO ADM SS Creatinine [Mass/Vol] 1.60 mg/dL Invalid Interpretation Code 0.70 - 1.30 mg/dL AO ADM SS Electrolyte Balance 13.0 mEq/L Invalid Interpretation Code 4.0 - 15.0 mEq/L AO ADM SS Globulin 3.8 G/dL Invalid Interpretation Code AO ADM SS Glucose [Mass/Vol] 155 mg/dL Invalid Interpretation Code 83 - 110 mg/dL AO ADM SS Phosphate [Mass/Vol] 3.2 mg/dL Invalid Interpretation Code 2.3 - 4.1 mg/dL AO ADM SS Potassium [Moles/Vol] 4.1 mmol/L Invalid Interpretation Code 3.5 - 5.1 mmol/L AO ADM SS Protein [Mass/Vol] 7.5 G/dL Invalid Interpretation Code 6.4 - 8.2 G/dL AO ADM SS Sodium [Moles/Vol] 140 mmol/L Invalid Interpretation Code 136 - 145 mmol/L AO ADM SS Urea nitrogen [Mass/Vol] 29 mg/dL Invalid Interpretation Code 7 - 18 mg/dL AO ADM SS Urea nitrogen/Creatinine [Mass ratio] 18 ratio Invalid Interpretation Code 7 - 27 ratio AO ADM SS Vit. D 25-Hydroxy 147.7 ng/mL Invalid Interpretation Code AO ADM SS LABORATORYOrdered By: SYSTEM SYSTEM on 08-16-2021 GFR 50 ml/min/1.73sqm Invalid Interpretation Code AO Chemistry S GFR Non- 42 ml/min/1.73sqm Invalid Interpretation Code AO Chemistry S Parathyrin.intact [Mass/Vol] 55.3 pg/mL Invalid Interpretation Code 18.5 - 88.0 pg/mL AH ADM SS HGB A1Con 07-21-2021 HbA1c (Bld) [Mass fraction] 6.5 % Abnormal 4 - 6 % [facility] LIPID PANEL (EXTERNAL)on Cholesterol [Mass/Vol] 232 mg/dL Abnormal 0 - 200 MG/DL [facility] HDC-L 40 mg/dL 41 mg/dL [facility] LDL Chol, calculated 170 MG/DL Abnormal 130 MG/DL [facility] Triglyceride [Mass/Vol] 112 mg/dL 149 mg/dL [facility] No Panel Informationon 06-16 [facility] LABORATORYOrdered By: Patricia Colmenares on 06-11-2021 Albumin DL <= 20 mg/L (U) [Mass/Vol] 1836 mcg/dL Invalid Interpretation Code AO ADM SS Albumin/Creatinine DL <= 20 mg/L (U) [Mass ratio] 20 mcg/mg Invalid Interpretation Code 0 - 30 mcg/mg AO ADM SS Creatinine (U) [Mass/Vol] 93.8 mg/dL Invalid Interpretation Code 39.0 - 259.0 mg/dL AO ADM SS LABORATORYOrdered By: Rusatm Olivas on 06-10-2021 Albumin BCP dye [Mass/Vol] 3.3 G/dL Invalid Interpretation Code 3.4 - 4.8 G/dL AO ADM SS Albumin/Globulin [Mass ratio] 0.9 {ratio} Invalid Interpretation Code 1.1 - 2.5 ratio AO ADM SS ALP [Catalytic activity/Vol] 79 U/L Invalid Interpretation Code 40 - 135 U/L AO ADM SS ALT With P-5'-P [Catalytic activity/Vol] 17 U/L Invalid Interpretation Code 16 - 63 U/L AO ADM SS AST With P-5'-P [Catalytic activity/Vol] 11 U/L Invalid Interpretation Code 10 - 40 U/L AO ADM SS Bilirubin [Mass/Vol] 0.5 mg/dL Invalid Interpretation Code 0.2 - 1.0 mg/dL AO ADM SS Calcium [Mass/Vol] 8.6 mg/dL Invalid Interpretation Code 8.4 - 10.2 mg/dL AO ADM SS Chloride [Moles/Vol] 106 mmol/L Invalid Interpretation Code 98 - 107 mmol/L AO ADM SS Cholesterol [Mass/Vol] 232 mg/dL Invalid Interpretation Code 0 - 200 mg/dL AO ADM SS Cholesterol in HDL [Mass/Vol] 40 mg/dL Invalid Interpretation Code 40 - 60 mg/dL AO ADM SS Cholesterol in LDL [Mass/Vol] 170 mg/dL Invalid Interpretation Code 0 - 130 mg/dL AO ADM SS CO2 [Moles/Vol] 27 mmol/L Invalid Interpretation Code 23 - 31 mmol/L AO ADM SS Creatinine [Mass/Vol] 1.54 mg/dL Invalid Interpretation Code 0.70 - 1.30 mg/dL AO ADM SS Electrolyte Balance 9.0 mEq/L Invalid Interpretation Code 4.0 - 15.0 mEq/L AO ADM SS Globulin 3.8 G/dL Invalid Interpretation Code AO ADM SS Glucose [Mass/Vol] 117 mg/dL Invalid Interpretation Code 83 - 110 mg/dL AO ADM SS HbA1c (Bld) [Mass fraction] 6.5 % Invalid Interpretation Code 4.3 - 6.4 % AO ADM SS Potassium [Moles/Vol] 4.1 mmol/L Invalid Interpretation Code 3.5 - 5.1 mmol/L AO ADM SS Protein [Mass/Vol] 7.1 G/dL Invalid Interpretation Code 6.4 - 8.2 G/dL AO ADM SS Sodium [Moles/Vol] 142 mmol/L Invalid Interpretation Code 136 - 145 mmol/L AO ADM SS Triglyceride [Mass/Vol] 112 mg/dL Invalid Interpretation Code 0 - 150 mg/dL AO ADM SS TSH Qn 3.06 m[IU]/L Invalid Interpretation Code 0.36 - 3.74 mcIU/mL AO ADM SS Urea nitrogen [Mass/Vol] 26 mg/dL Invalid Interpretation Code 7 - 18 mg/dL AO ADM SS Urea nitrogen/Creatinine [Mass ratio] 17 ratio Invalid Interpretation Code 7 - 27 ratio AO ADM SS Vit. D 25-Hydroxy 139.9 ng/mL Invalid Interpretation Code AO ADM SS LABORATORYOrdered By: SYSTEM SYSTEM on 06-10-2021 GFR 53 ml/min/1.73sqm Invalid Interpretation Code AO Chemistry S GFR Non- 43 ml/min/1.73sqm Invalid Interpretation Code AO Chemistry S Vital Signs Date Time Vital Sign Value Performing Clinician Facility 10-23-2024 13:00-0400 Body height 182.[address] Zachary Kennedy MD Work Phone: 9(448)452-468202 [place] [address] 10-23-2024 13:00-0400 Body mass index (BMI) [Ratio] 21.1 kg/m2 Dr. Zachary Kennedy MD Work Phone: 9(147)170-204902 [place] [address] 10-23-2024 13:00-0400 Body weight 70.[address] Zachary Kennedy MD Work Phone: 5(257)465-315602 [place] [address] 10-23-2024 13:00-0400 Diastolic blood pressure 69 mm[Hg] Dr. Zachary Kennedy MD Work Phone: 9(667)380-798302 [place] [address] 10-23-2024 13:00-0400 Heart rate 73 /min Dr. Zachary Kennedy MD Work Phone: 7(673)981-354402 [place] [address] 10-23-2024 13:00-0400 Respiratory rate 16 /min Dr. Zachary Kennedy MD Work Phone: 8(580)392-106702 [place] [address] 10-23-2024 13:00-0400 Systolic blood pressure 109 mm[Hg] Dr. Zachary Kennedy MD Work Phone: 9(462)876-458102 [place] [address] 09-23-2024 13:10-0400 Diastolic blood pressure 72 mm[Hg] Ya Morel APRN.CNP Work Phone: 7(989)673-063130 [place] [address] 09-23-2024 13:10-0400 Heart rate 85 /min Ya Haagen PUBLIC HE[employer] EPIDEMIOLOGIST.HEATING AND BLENDING SUPERVISOR Work Phone: [facility] 09-23-2024 13:10-0400 Respiratory rate 16 /min Ya Haagen PUBLIC HEALTH EPIDEMIOLOGIST.HEATING AND BLENDING SUPERVISOR Work Phone: [facility] 09-23-2024 13:10-0400 SaO2% (BldA) [Mass fraction] 97 % Ya Haagen PUBLIC HEALTH EPIDEMIOLOGIST.HEATING AND BLENDING SUPERVISOR Work Phone: [facility] 09-23-2024 13:10-0400 Systolic blood pressure 122 mm[Hg] Ya Haagen PUBLIC HEALTH EPIDEMIOLOGIST.HEATING AND BLENDING SUPERVISOR Work Phone: [facility] 09-09-2024 12:54-0400 Diastolic blood pressure 83 mm[Hg] Jaja Gaona MD Work Phone: [facility] 09-09-2024 12:54-0400 Heart rate 69 /min Jaja Gaona MD Work Phone: [facility] 09-09-2024 12:54-0400 Respiratory rate 16 /min Jaja Gaona MD Work Phone: [facility] 09-09-2024 12:54-0400 SaO2% (BldA) [Mass fraction] 100 % Jaja Gaona MD Work Phone: [facility] 09-09-2024 12:54-0400 Systolic blood pressure 134 mm[Hg] Jaja Gaona MD Work Phone: [facility] 09-04-2024 09:57-0400 Body mass index (BMI) [Ratio] 23.33 kg/m2 Janeen Goodman MD Work Phone: [facility] 09-04-2024 09:57-0400 Body weight 73.1 kg Janeen Goodman MD Work Phone: [facility] 09-04-2024 09:57-0400 SaO2% (BldA) [Mass fraction] 100 % Janeen Goodman MD Work Phone: [facility] 08-13-2024 14:00-0400 Heart rate 89 /min Naheed [facility] 08-13-2024 14:00-0400 SaO2% (BldA) [Mass fraction] 98 % Naheed [facility] 08-06-2024 11:00-0400 Heart rate 83 /min Naheed [facility] Comment on above: Increased to 100 with activity 08-06-2024 11:00-0400 SaO2% (BldA) [Mass fraction] 98 % Naheed [facility] Comment on above: 96-98% throughout even with activity 07-25-2024 11:00-0400 Heart rate 88 /min Naheed [facility] Comment on above: Increased to 96 after activity 07-25-2024 11:00-0400 SaO2% (BldA) [Mass fraction] 98 % Naheed [facility] Comment on above: 98-99% throughout session 07-23-2024 13:00-0400 Heart rate 65 /min Naheed [facility] 07-23-2024 13:00-0400 SaO2% (BldA) [Mass fraction] 98 % Naheed [facility] 07-23-2024 11:18-0400 Diastolic blood pressure 82 mm[Hg] Ya Haagen PUBLIC HEALTH EPIDEMIOLOGIST.HEATING AND BLENDING SUPERVISOR Work Phone: [facility] 07-23-2024 11:18-0400 Heart rate 71 /min Ya Haagen PUBLIC HEALTH EPIDEMIOLOGIST.HEATING AND BLENDING SUPERVISOR Work Phone: [facility] 07-23-2024 11:18-0400 Respiratory rate 16 /min Ya Haagen PUBLIC HEALTH EPIDEMIOLOGIST.HEATING AND BLENDING SUPERVISOR Work Phone: [facility] 07-23-2024 11:18-0400 SaO2% (BldA) [Mass fraction] 99 % Ya Haagen PUBLIC HEALTH EPIDEMIOLOGIST.HEATING AND BLENDING SUPERVISOR Work Phone: [facility] 07-23-2024 11:18-0400 Systolic blood pressure 116 mm[Hg] Ya Haagen PUBLIC HEALTH EPIDEMIOLOGIST.HEATING AND BLENDING SUPERVISOR Work Phone: [facility] 07-08-2024 10:46-0400 Diastolic blood pressure 73 mm[Hg] Abigail Moss DO Work Phone: [facility] 07-08-2024 10:46-0400 Heart rate 78 /min Abigail Moss DO Work Phone: [facility] 07-08-2024 10:46-0400 SaO2% (BldA) [Mass fraction] 97 % Abigail Moss DO Work Phone: [facility] 07-08-2024 10:46-0400 Systolic blood pressure 130 mm[Hg] Abigail Moss DO Work Phone: [facility] 06-20-2024 10:01-0400 Body height 177 cm Stu Lloyd DO Work Phone: [facility] 06-20-2024 10:01-0400 Body mass index (BMI) [Ratio] 24.25 kg/m2 Stu Masci DO Work Phone: [facility] 06-20-2024 10:01-0400 Body temperature 96.91 [degF] Stu Masci DO Work Phone: [facility] 06-20-2024 10:01-0400 Body weight 75.98 kg Stu Masci DO Work Phone: [facility] 06-20-2024 10:01-0400 Diastolic blood pressure 89 mm[Hg] Stu Masci DO Work Phone: [facility] 06-20-2024 10:01-0400 Heart rate 82 /min Stu Masci DO Work Phone: [facility] 06-20-2024 10:01-0400 SaO2% (BldA) [Mass fraction] 100 % Stu Masci DO Work Phone: [facility] 06-20-2024 10:01-0400 Systolic blood pressure 159 mm[Hg] Stu Masci DO Work Phone: [facility] 06-17-2024 14:30-0400 Body height 182.9 cm Zachary Kennedy MD Work Phone: [facility] 06-17-2024 14:30-0400 Body mass index (BMI) [Ratio] 23.06 kg/m2 Zachary Kennedy MD Work Phone: [facility] 06-17-2024 14:30-0400 Body weight 77.11 kg Zachary Kennedy MD Work Phone: [facility] 06-17-2024 14:30-0400 Diastolic blood pressure 64 mm[Hg] Zachary Kennedy MD Work Phone: [facility] 06-17-2024 14:30-0400 Heart rate 92 /min Zachary Kennedy MD Work Phone: [facility] 06-17-2024 14:30-0400 SaO2% (BldA) [Mass fraction] 95 % Zachary Kennedy MD Work Phone: [facility] 06-17-2024 14:30-0400 Systolic blood pressure 118 mm[Hg] Zachary Kennedy MD Work Phone: [facility] 12-18-2023 11:32-0400 Diastolic blood pressure 80 mm[Hg] Ya Haagen PUBLIC HEALTH EPIDEMIOLOGIST.HEATING AND BLENDING SUPERVISOR Work Phone: [facility] 12-18-2023 11:32-0400 Heart rate 82 /min Ya Haagen PUBLIC HEALTH EPIDEMIOLOGIST.HEATING AND BLENDING SUPERVISOR Work Phone: [facility] 12-18-2023 11:32-0400 Respiratory rate 16 /min Ya Haagen PUBLIC HEALTH EPIDEMIOLOGIST.HEATING AND BLENDING SUPERVISOR Work Phone: [facility] 12-18-2023 11:32-0400 SaO2% (BldA) [Mass fraction] 99 % Ya Haagen PUBLIC HEALTH EPIDEMIOLOGIST.HEATING AND BLENDING SUPERVISOR Work Phone: [facility] 12-18-2023 11:32-0400 Systolic blood pressure 138 mm[Hg] Ya Haagen PUBLIC HEALTH EPIDEMIOLOGIST.HEATING AND BLENDING SUPERVISOR Work Phone: [facility] 07-10-2023 09:20-0400 Diastolic blood pressure 66 mm[Hg] Abigail Moss DO Work Phone: [facility] 07-10-2023 09:20-0400 Heart rate 71 /min Abigail Moss DO Work Phone: [facility] 07-10-2023 09:20-0400 SaO2% (BldA) [Mass fraction] 100 % Abigail Moss DO Work Phone: [facility] 07-10-2023 09:20-0400 Systolic blood pressure 112 mm[Hg] Abigail Moss DO Work Phone: [facility] 06-25-2023 14:54-0400 Body mass index (BMI) [Ratio] 21.32 kg/m2 NA Cook PA-C Work Phone: [facility] 06-25-2023 14:54-0400 Body weight 71.31 kg NA Cook PA-C Work Phone: [facility] 06-25-2023 14:54-0400 Diastolic blood pressure 76 mm[Hg] NA Cook PA-C Work Phone: [facility] 06-25-2023 14:54-0400 Heart rate 70 /min NA Cook PA-C Work Phone: [facility] 06-25-2023 14:54-0400 Respiratory rate 18 /min NA Cook PA-C Work Phone: [facility] 06-25-2023 14:54-0400 Systolic blood pressure 124 mm[Hg] NA Cook PA-C Work Phone: [facility] 05-25-2023 15:25-0400 Body weight 72.12 kg NA Cook PA-C Work Phone: [facility] 05-25-2023 15:25-0400 Diastolic blood pressure 62 mm[Hg] NA Cook PA-C Work Phone: [facility] 05-25-2023 15:25-0400 Heart rate 81 /min NA Cook PA-C Work Phone: [facility] 05-25-2023 15:25-0400 SaO2% (BldA) [Mass fraction] 99 % NA Cook PA-C Work Phone: [facility] 05-25-2023 15:25-0400 Systolic blood pressure 118 mm[Hg] NA Cook PA-C Work Phone: [facility] 12-22-2022 13:54-0400 Diastolic blood pressure 70 mm[Hg] Zachary Kennedy MD Work Phone: [facility] 12-22-2022 13:54-0400 Systolic blood pressure 136 mm[Hg] Zachary Kennedy MD Work Phone: [facility] 12-22-2022 13:26-0400 Body height 182.9 cm Zachary Kennedy MD Work Phone: [facility] 12-22-2022 13:26-0400 Body weight 73.66 kg Zachary Kennedy MD Work Phone: [facility] 12-22-2022 13:26-0400 Heart rate 62 /min Zachary Kennedy MD Work Phone: [facility] 12-22-2022 13:26-0400 SaO2% (BldA) [Mass fraction] 98 % Zachary Kennedy MD Work Phone: [facility] 08-15-2022 13:59-0400 Body weight 76.66 kg Zachary Kennedy MD Work Phone: [facility] 08-15-2022 13:59-0400 Diastolic blood pressure 72 mm[Hg] Zachary Kennedy MD Work Phone: [facility] 08-15-2022 13:59-0400 Heart rate 62 /min Zachary Kennedy MD Work Phone: [facility] 08-15-2022 13:59-0400 Respiratory rate 16 /min Zachary Kennedy MD Work Phone: [facility] 08-15-2022 13:59-0400 SaO2% (BldA) [Mass fraction] 99 % Zachary Kennedy MD Work Phone: [facility] 08-15-2022 13:59-0400 Systolic blood pressure 116 mm[Hg] Zachary Kennedy MD Work Phone: [facility] 08-11-2022 09:06-0400 Body temperature 97.6 [degF] Dr. Zachary Kennedy Work Phone: [facility] 08-11-2022 09:06-0400 Diastolic blood pressure 45 mm[Hg] Dr. Zachary Kennedy Work Phone: 6(389)441-183902 [place] [address] 08-11-2022 09:06-0400 Heart rate 61 /min Dr. Zachary Kennedy Work Phone: 9(205)456-605702 [place] [address] 08-11-2022 09:06-0400 Respiratory rate 14 /min Dr. Zachary Kennedy Work Phone: 7(848)456-376702 [place] [address] 08-11-2022 09:06-0400 SaO2% (BldA) [Mass fraction] 98 % Dr. Zachary Kennedy Work Phone: 9(730)148-390602 [place] [address] 08-11-2022 09:06-0400 Systolic blood pressure 114 mm[Hg] Dr. Zachary Kennedy Work Phone: 8(142)155-583602 [place] [address] 08-09-2022 12:38-0400 Body height 182.[address] Zachary Kennedy Work Phone: 3(139)085-986202 [place] [address] 08-09-2022 12:38-0400 Body mass index (BMI) [Ratio] 22.2 kg/m2 Dr. Zachary Kennedy Work Phone: 2(518)055-996002 [place] [address] 08-09-2022 12:38-0400 Body weight 74.[address] Zachary Kennedy Work Phone: 8(379)687-232702 [place] [address] 08-07-2022 14:39-0400 Body temperature 97.8 [degF] Dr. Zachary Kennedy Work Phone: 3(204)981-602002 [place] [address] 08-07-2022 14:39-0400 Diastolic blood pressure 62 mm[Hg] Dr. Zachary Kennedy Work Phone: 6(273)820-869302 [place] [address] 08-07-2022 14:39-0400 Heart rate 64 /min Dr. Zachary Knenedy Work Phone: 9(244)816-479802 [place] [address] 08-07-2022 14:39-0400 Respiratory rate 12 /min Dr. Zachary Kennedy Work Phone: 6(910)565-645902 [place] [address] 08-07-2022 14:39-0400 SaO2% (BldA) [Mass fraction] 99 % Dr. Zachary Kennedy Work Phone: [facility] 08-07-2022 14:39-0400 Systolic blood pressure 96 mm[Hg] Dr. Zachary Kennedy Work Phone: [facility] 08-07-2022 10:47-0400 Body height 182.[address] Zachary Kennedy Work Phone: [facility] 08-07-2022 10:47-0400 Body mass index (BMI) [Ratio] 22.6 kg/m2 Dr. Zachary Kennedy Work Phone: [facility] 08-07-2022 10:47-0400 Body weight 75.[address] Zachary Kennedy Work Phone: [facility] 08-04-2022 13:20-0400 Body temperature 97.39 [degF] Bri Knightsen PA-C Work Phone: [facility] 08-04-2022 13:20-0400 Body weight 76.75 kg Bri Knightsen PA-C Work Phone: [facility] 08-04-2022 13:20-0400 Diastolic blood pressure 80 mm[Hg] Bri Knightsen PA-C Work Phone: [facility] 08-04-2022 13:20-0400 Heart rate 84 /min Bri Sonia PA-C Work Phone: [facility] 08-04-2022 13:20-0400 SaO2% (BldA) [Mass fraction] 100 % Bri Knightsen PA-C Work Phone: [facility] 08-04-2022 13:20-0400 Systolic blood pressure 132 mm[Hg] Bri Knightsen PA-C Work Phone: [facility] 07-19-2022 14:08-0400 Body height 182.9 cm Pac 1 Work Phone: [facility] 07-19-2022 14:08-0400 Body temperature 97.81 [degF] Pac 1 Work Phone: [place] [id number] 14:08-0400 Body weight 76.2 kg Pacc 1 Work Phone: [facility] 07-19-2022 14:08-0400 Diastolic blood pressure 64 mm[Hg] Pacc 1 Work Phone: [facility] 07-19-2022 14:08-0400 Heart rate 68 /min Pacc 1 Work Phone: [facility] 07-19-2022 14:08-0400 Respiratory rate 14 /min Pacc 1 Work Phone: [facility] 07-19-2022 14:08-0400 SaO2% (BldA) [Mass fraction] 99 % Pacc 1 Work Phone: [facility] 07-19-2022 14:08-0400 Systolic blood pressure 108 mm[Hg] Pacc 1 Work Phone: [facility] 07-06-2022 14:38-0400 Body weight 76.[address] Zachary Kennedy Work Phone: [facility] 07-06-2022 14:38-0400 Diastolic blood pressure 72 mm[Hg] Dr. Zachary Kennedy Work Phone: [facility] 07-06-2022 14:38-0400 Heart rate 64 /min Dr. Zachary Kennedy Work Phone: [facility] 07-06-2022 14:38-0400 Respiratory rate 18 /min Dr. Zachary Kennedy Work Phone: [facility] 07-06-2022 14:38-0400 Systolic blood pressure 123 mm[Hg] Dr. Zachary Kennedy Work Phone: [facility] 07-04-2022 13:38-0400 Body height 182.9 cm Zachary Kennedy MD Work Phone: [facility] 07-04-2022 13:38-0400 Body weight 76.2 kg Zachary Kennedy MD Work Phone: [facility] 07-04-2022 13:38-0400 Diastolic blood pressure 60 mm[Hg] Zachary Kennedy MD Work Phone: [facility] 07-04-2022 13:38-0400 Heart rate 65 /min Zachary Kennedy MD Work Phone: [facility] 07-04-2022 13:38-0400 SaO2% (BldA) [Mass fraction] 99 % Zachary Kennedy MD Work Phone: [facility] 07-04-2022 13:38-0400 Systolic blood pressure 108 mm[Hg] Zachary Kennedy MD Work Phone: [facility] 06-20-2022 09:34-0400 Body height 182.9 cm Bri Knightsen PA-C Work Phone: [facility] 06-20-2022 09:34-0400 Body temperature 96.4 [degF] Bri Sonia PA-C Work Phone: [facility] 06-20-2022 09:34-0400 Body weight 77.47 kg Bri Knightsen PA-C Work Phone: [facility] 06-20-2022 09:34-0400 Diastolic blood pressure 80 mm[Hg] Bri Knightsen PA-C Work Phone: [facility] 06-20-2022 09:34-0400 Heart rate 88 /min Bri Sonia PA-C Work Phone: [facility] 06-20-2022 09:34-0400 SaO2% (BldA) [Mass fraction] 97 % Bri Sonia PA-C Work Phone: [facility] 06-20-2022 09:34-0400 Systolic blood pressure 132 mm[Hg] Bri Sonia PA-C Work Phone: [facility] 06-13-2022 11:16-0400 Diastolic blood pressure 80 mm[Hg] Abigail Moss DO Work Phone: [facility] 06-13-2022 11:16-0400 Heart rate 64 /min Abigail Moss DO Work Phone: [facility] 06-13-2022 11:16-0400 SaO2% (BldA) [Mass fraction] 100 % Abigail Moss DO Work Phone: [facility] 06-13-2022 11:16-0400 Systolic blood pressure 138 mm[Hg] Abigail Moss DO Work Phone: [facility] 06-05-2022 14:29-0400 Body height 176.8 cm Stu Greenei DO Work Phone: [facility] 06-05-2022 14:29-0400 Body temperature 97.39 [degF] Stu Masci DO Work Phone: [facility] 06-05-2022 14:29-0400 Body weight 76.43 kg Stu Masci DO Work Phone: [facility] 06-05-2022 14:29-0400 Diastolic blood pressure 78 mm[Hg] Stu Masci DO Work Phone: [facility] 06-05-2022 14:29-0400 Heart rate 62 /min Stu Masci DO Work Phone: [facility] 06-05-2022 14:29-0400 SaO2% (BldA) [Mass fraction] 97 % Stu Masci DO Work Phone: [facility] 06-05-2022 14:29-0400 Systolic blood pressure 150 mm[Hg] Stu Masci DO Work Phone: [facility] 12-12-2021 14:42-0400 Body weight 78.47 kg Zachary Kennedy MD Work Phone: [facility] 12-12-2021 14:42-0400 Diastolic blood pressure 72 mm[Hg] Zachary Kennedy MD Work Phone: [facility] 12-12-2021 14:42-0400 Heart rate 60 /min Zachary Kennedy MD Work Phone: [facility] 12-12-2021 14:42-0400 Systolic blood pressure 118 mm[Hg] Zachary Mazeppa MD Work Phone: [facility] 12-06-2021 10:47-0400 Body height 176 cm Stu Lloyd DO Work Phone: [facility] 12-06-2021 10:47-0400 Body temperature 97.3 [degF] Stu Greenei DO Work Phone: [facility] 12-06-2021 10:47-0400 Body weight 78.25 kg Stu Jci DO Work Phone: [facility] 12-06-2021 10:47-0400 Diastolic blood pressure 69 mm[Hg] Stu Masci DO Work Phone: [facility] 12-06-2021 10:47-0400 Heart rate 60 /min Stu Greenei DO Work Phone: [facility] 12-06-2021 10:47-0400 SaO2% (BldA) [Mass fraction] 100 % Stu Greenei DO Work Phone: [facility] 12-06-2021 10:47-0400 Systolic blood pressure 110 mm[Hg] Stu Greenei DO Work Phone: [facility] 09-27-2021 11:12-0400 Body height 182.9 cm Abigail Moss DO Work Phone: [facility] 09-27-2021 11:12-0400 Body weight 81.19 kg Abigail Moss DO Work Phone: [facility] 09-27-2021 11:12-0400 Diastolic blood pressure 74 mm[Hg] Abigail Moss DO Work Phone: [facility] 09-27-2021 11:12-0400 Heart rate 63 /min Abigail Moss DO Work Phone: [facility] 09-27-2021 11:12-0400 SaO2% (BldA) [Mass fraction] 100 % Abigail Moss DO Work Phone: [facility] 09-27-2021 11:12-0400 Systolic blood pressure 141 mm[Hg] Abigail Moss DO Work Phone: [facility] 08-03-2021 09:22-0400 Body weight 81.65 kg Zachary Kennedy MD Work Phone: [facility] 08-03-2021 09:22-0400 Diastolic blood pressure 82 mm[Hg] Zachary Kennedy MD Work Phone: [facility] 08-03-2021 09:22-0400 Heart rate 68 /min Zachary Kennedy MD Work Phone: [facility] 08-03-2021 09:22-0400 Respiratory rate 16 /min Zachary Kennedy MD Work Phone: [facility] 08-03-2021 09:22-0400 Systolic blood pressure 126 mm[Hg] Zachary Kennedy MD Work Phone: [facility] 07-20-2021 10:38-0400 Body weight 82.92 kg Zachary Kennedy MD Work Phone: [facility] 07-20-2021 10:38-0400 Diastolic blood pressure 86 mm[Hg] Zachary Kennedy MD Work Phone: [facility] 07-20-2021 10:38-0400 Heart rate 71 /min Zachary Kennedy MD Work Phone: [facility] 07-20-2021 10:38-0400 Respiratory rate 16 /min Zachary Kennedy MD Work Phone: [facility] 07-20-2021 10:38-0400 SaO2% (BldA) [Mass fraction] 99 % Zachary Kennedy MD Work Phone: [facility] 07-20-2021 10:38-0400 Systolic blood pressure 132 mm[Hg] Zachary Kennedy MD Work Phone: [facility] Encounters Encounter Date Encounter Type Care Provider Facility Start: 10-23-2024 End: 10-23-[address] Zachary Kennedy MD Work Phone: -[facility] Start: 10-23-2024 End: 10-23-2024 Patient encounter procedure Nathaniel CASAS -[facility] Work Phone: Start: 10-15-2024 End: 10-15-[address] Zachary Kennedy MD Work Phone: -[facility] Start: 10-15-2024 End: 10-15-[address] Marcos Wheatley MD -[facility] Work Phone: Start: 10-02-2024 End: 10-07-2024 Telephone encounter Ya Morel APRN.HEATING AND BLENDING SUPERVISOR Work Phone: [facility] Comment on above: Results, Lab Start: 09-23-2024 End: 09-23-2024 Office outpatient visit 15 minutes Ya Morel APRN.HEATING AND BLENDING SUPERVISOR Work Phone: [facility] Comment on above: Primary hypertension (Primary Dx); Type 2 diabetes mellitus without complication, without long-term current use of insulin (HCC) Start: 09-23-2024 End: 09-23-2024 ambulatory BIBIANA WYATT Facility:[facility] Start: 09-23-2024 End: 09-23-2024 Subsequent hospital visit by physician [facility] (I-Stat) Work Phone: Cat Scan Comment on above: Abnormal CT scan of head [R93.0] Start: 09-09-2024 End: 09-09-2024 Patient encounter procedure Jaja Gaona MD Work Phone: Neurology Comment on above: Abnormal CT scan of head; Memory loss Start: 09-09-2024 End: 09-09-2024 ambulatory JAJA GAONA Facility:[facility] Start: 09-04-2024 End: 09-04-2024 Office outpatient new 45 minutes Janeen Goodman MD Work Phone: Neurology Comment on above: Impairment of balanc e (Primary Dx) Start: 09-04-2024 End: 09-04-2024 ambulatory ZACHARY KENNEDY Facility:[facility] Start: 08-13-2024 End: 08-13-2024 ambulatory [facility] [place] Comment on above: Ataxia (Primary Dx); Impairment of balance; Weakness of both lower extremities; At risk for falls Start: 08-06-2024 End: 08-06-2024 ambulatory [facility] AQUATICS [facility]OR [facility] [place] Comment on above: Ataxia (Primary Dx); Impairment of balance; Weakness of both lower extremities; At risk for falls Start: 07-31-2024 End: 07-31-2024 ambulatory NAHEED BECERRA Facility:[id number] Start: 07-28-2024 End: 09-27-2024 Follow-up encounter Ya Morel APRN.HEATING AND BLENDING SUPERVISOR Work Phone: [facility] Comment on above: Results Start: 07-25-2024 End: 07-25-2024 ambulatory Naheed Becerra AQUATICS DIRECTOR [facility] [place] Comment on above: Ataxia (Primary Dx); Impairment of balance; Weakness of both lower extremities; At risk for falls Start: 07-23-2024 End: 07-23-2024 Office outpatient visit 15 minutes Ya Morel APRN.HEATING AND BLENDING SUPERVISOR Work Phone: [facility] Comment on above: Type 2 diabetes uriah itus with stage 3 chronic kidney disease, without long-term current use of insulin, unspecified whether stage 3a or 3b CKD (HCC) (Primary Dx) Start: 07-23-2024 End: 07-23-2024 ambulatory [facility]heed [facility]erra [facility]ATICS [facility] [place] Comment on above: Ataxia (Primary Dx); Impairment of balance; Weakness of both lower extremities; At risk for falls Start: 07-16-2024 End: 07-16-2024 ambulatory EDMOND SAAVEDRA Facility:[id number] Start: 07-16-2024 End: 07-16-2024 ambulatory Edmond Saavedra [facility] [place] Comment on above: Ataxia (Primary Dx); Impairment of balance; Weakness of both lower extremities; At risk for falls Start: 07-16-2024 End: 07-16-[address] Zachary Kennedy MD Work Phone: [facility] Work Phone: Start: 07-16-2024 End: 07-16-[address] Marcos Wheatley MD -[facility] Work Phone: Start: 07-08-2024 End: 07-08-2024 Patient encounter procedure Abigail Al Moss DO Work Phone: Vascular Surgery Comment on above: PAD (peripheral maurilio ry disease) (Primary Dx) Start: 07-08-2024 End: 07-08-2024 ambulatory ABIGAIL Al LEMONLE Facility:[facility] Start: 07-07-2024 End: 07-07-2024 Telephone encounter Zachary Kennedy MD Work Phone: [facility] [place] Comment on above: Results Start: 07-02-2024 ambulatory ZACHARY KENNEDY Facility :[facility] Start: 06-20-2024 End: 06-20-2024 ambulatory Stu Lloyd DO Work Phone: Hematology/Oncology Comment on above: CLL (chronic lymphoc ytic leukemia) (HCC) (Primary Dx) Start: 06-20-2024 End: 06-20-2024 Patient encounter procedure Stu Lloyd DO Work Phone: Hematology/Oncology Start: 06-19-2024 End: 06-23-2024 Telephone encounter Zachary Kennedy MD Work Phone: Pulmonology [facility] Comment on above: Results Start: 06-18-2024 End: 08-18-2024 Follow-up encounter Zachary Kennedy MD Work Phone: [facility] [place] Start: 06-18-2024 End: 06-18-2024 Telephone encounter tSu Lloyd DO Work Phone: Hematology/Oncology Comment on above: Appointment Start: 06-17-2024 End: 06-17-2024 ambulatory ZACHARY KENNEDY Facility:[facility] Start: 06-17-2024 End: 06-17-2024 ambulatory ZACHARY KENNEDY Facility:[facility] Start: 06-17-2024 End: 06-17-2024 Patient encounter procedure Zachary Kennedy MD Work Phone: [facility] [place] Comment on above: Chronic atrial fibri llation (HCC) (Primary Dx); Coronary artery disease due to lipid rich plaque; Mixed hyperlipidemia; PAD (peripheral artery disease); ICD (implantable cardioverter-defibrillator) in place; 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); Ischemic cardiomyopathy; Primary hypertension; Congestive heart failure, unspecified HF chronicity, unspecified heart failure type (HCC); Paroxysmal ventricular tachycardia (HCC); Screening for depression; Iron malabsorption (HCC); GERD without esophagitis; History of chronic lymphocytic leukemia; Osteoarthritis of hip, unspecified laterality, unspecified osteoarthritis type; supervisor intermediates (current) use of anticoagulants; Ataxia; Memory loss; Encounter for screening examination for other mental health and behavioral disorders; Type 2 diabetes mellitus with stage 3 chronic kidney disease, without long-term current use of insulin, unspecified whether stage 3a or 3b CKD (HCC); Chronic kidney disease, stage 3a (HCC) Start: 06-17-2024 End: 06-18-2024 Telephone encounter Zachary Kennedy MD Work Phone: Family [facility] Comment on above: Consult Start: 04-16-2024 End: 04-16-2024 ambulatory Zachary Cantrello Facility:[facility] Start: 04-16-2024 End: 04-16-[address] Marcos Wheatley MD -[facility] Work Phone: Start: 01-16-2024 End: 01-16-2024 [facility] Facility:[facility] Start: 12-19-2023 End: 12-21-2023 Telephone encounter Ya Morel APRN.CNP Work Phone: [facility] Comment on above: Results Start: 12-18-2023 End: 12-18-2023 ambulatory ZACHARY KENNEDY Facility:[facility] Start: 12-18-2023 End: 12-18-2023 Office outpatient visit 25 minutes Ya Morel APRN.CNP Work Phone: [facility] [place] Comment on above: Type 2 diabetes uriah itus with stage 2 chronic kidney disease, without long-term current use of insulin (HCC) (HCC) (Primary Dx); Primary hypertension; Chronic anticoagulation; Dyslipidemia; GERD without esophagitis; High thyroid stimulating hormone (TSH) level; Type 2 diabetes mellitus with chronic kidney disease, without long-term current use of insulin, unspecified CKD stage (HCC) Start: 12-18-2023 End: 12-18-2023 ambulatory ZACHARY KENNEDY Facility:[facility] Start: 12-13-2023 End: 12-13-2023 ambulatory Zachary Kennedy Facility:[facility] Start: 10-17-2023 End: 10-17-2023 ambulatory Marcos Wheatley Facility:[facility] Start: 09-18-2023 End: 09-18-2023 ambulatory Nathaniel Gomez Chidi DIAZ Facility:[facility] Start: 08-15-2023 End: 08-15-2023 ambulatory Lowell [facility] Comment on above: Weakness (Primary Dx ); Impairment of balance; Impaired flexibility of lower extremity Start: 08-08-2023 End: 08-08-2023 ambulatory Lowell Thomas Comment on above: Weakness (Primary Dx ); 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; Impairment of balance; Impaired flexibility of lower extremity Start: 08-03-2023 End: 08-03-2023 ambulatory Caroline Thomas Comment on above: Weakness (Primary Dx ); 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; Impairment of balance; Impaired flexibility of lower extremity Start: 07-26-2023 Telephone encounter Zachary Kennedy MD Work Phone: [facility] Comment on above: Patient Question Start: 07-25-2023 End: 07-25-2023 ambulatory Lowell Thomas Comment on above: Weakness (Primary Dx ); 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; Impairment of balance; Impaired flexibility of lower extremity Start: 07-23-2023 End: 07-23-2023 ambulatory Lowell Thomas Comment on above: Weakness (Primary Dx ); 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; Impairment of balance; Impaired flexibility of lower extremity Start: 07-18-2023 End: 07-18-2023 ambulatory Lowell Thomas Comment on above: Weakness (Primary Dx ); 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; Impairment of balance; Impaired flexibility of lower extremity Start: 07-16-2023 End: 07-16-2023 ambulatory Lowell Thomas Comment on above: Weakness (Primary Dx ); 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; Impairment of balance; Impaired flexibility of lower extremity Start: 07-11-2023 End: 07-11-2023 ambulatory [facility] [place] Comment on above: Weakness (Primary Dx ); 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; Impairment of balance; Impaired flexibility of lower extremity Start: 07-10-2023 End: 07-10-2023 Patient encounter procedure Abigail Moss DO Work Phone: Vascular Surgery Comment on above: PAD (peripheral maurilio ry disease) ([facility]) (Primary Dx); Cerebrovascular accident (CVA), unspecified mechanism ([facility]) Start: 07-09-2023 End: 07-09-2023 ambulatory Lowell [facility] [place] Comment on above: Weakness (Primary Dx ); 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; Impairment of balance; Impaired flexibility of lower extremity Start: 07-04-2023 End: 07-04-2023 ambulatory Lowell Thomas Comment on above: Weakness (Primary Dx ); 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; Impairment of balance; Impaired flexibility of lower extremity Start: 07-02-2023 End: 07-02-2023 ambulatory Lowell Thomas Comment on above: Weakness (Primary Dx ); 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; Impairment of balance; Impaired flexibility of lower extremity Start: 06-25-2023 End: 06-25-2023 Patient encounter procedure Brian Cook PA-C Work Phone: [facility] Comment on above: Coronary artery dise ase due to lipid rich plaque (Primary Dx); Type 2 diabetes mellitus with stage 2 chronic kidney disease, without long-term current use of insulin (HCC) (HCC); Dyslipidemia Start: 06-15-2023 End: 06-15-2023 ambulatory Marce Mann PT, DPT Work Phone: [facility] Comment on above: Weakness (Primary Dx ); 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; Impaired flexibility of lower extremity; Impairment of balance Start: 06-12-2023 End: 06-13-2023 ambulatory DENISE HERNANDES MD Facility:[facility] Start: 06-12-2023 End: 06-12-2023 Patient encounter procedure DENISE HERNANDES MD [facility] Start: 05-25-2023 End: 05-25-2023 Patient encounter procedure Brian Cook PA-C Work Phone: [facility] Comment on above: Chronic ischemic lef t anterior cerebral artery stroke (Primary Dx) Start: 12-22-2022 Telephone encounter Stu elena DO Work Phone: Hematology/Oncology Comment on above: Electronic Communica tion Start: 12-22-2022 End: 12-22-2022 Patient encounter procedure Zachary Kennedy MD Work Phone: [facility] Comment on above: Acute combined systo lic and diastolic heart failure (HCC) (Primary Dx); Primary hypertension; Congestive heart failure, unspecified HF chronicity, unspecified heart failure type (HCC); Chronic atrial fibrillation (HCC); Mixed hyperlipidemia; ICD (implantable cardioverter-defibrillator) in place; PAD (peripheral artery disease) (HCC); Paroxysmal ventricular tachycardia (HCC); CLL (chronic lymphocytic leukemia) (HCC); High thyroid stimulating hormone (TSH) level; Type 2 diabetes mellitus with stage 2 chronic kidney disease, without long-term current use of insulin (HCC) Start: 11-30-2022 Telephone encounter Stu elena DO Work Phone: Hematology/Oncology Comment on above: Appointment Reschedu led Start: 09-21-2022 End: 09-22-2022 ambulatory ZACHARY KENNEDY MD Facility:[facility] Start: 09-21-2022 End: 09-21-2022 Patient encounter procedure DENISE HERNANDES MD [facility] Start: 09-07-2022 Telephone encounter Stu elena DO Work Phone: Hematology/Oncology Comment on above: Results Start: 09-04-2022 Orders Only Stu Worley Work Phone: Hematology/Oncology Comment on above: CLL (chronic lymphoc ytic leukemia) (HCC) (Primary Dx); Anemia, unspecified type Start: 08-15-2022 End: 08-15-2022 Patient encounter procedure Zachary Kennedy MD Work Phone: [facility] Comment on above: Gastrointestinal hem orrhage associated with intestinal diverticulosis (Primary Dx); Chronic atrial fibrillation (HCC); Coronary artery disease due to lipid rich plaque; Iron malabsorption Start: 08-15-2022 Telephone encounter Naheed Grimm RN He matology/Oncology Comment on above: [employer] (Hospital Discharge ) Start: 08-10-2022 Non-patient / Non-visit Dr. Ernesto Kennedy Work Phone: [facility] Start: 08-10-2022 Non-patient / Non-visit Dr. Ernesto Kennedy Work Phone: [facility] Start: 08-09-2022 Non-patient / Non-visit Dr. Ernesto Kennedy Work Phone: [facility] Start: 08-09-2022 Non-patient / Non-visit Dr. Ernesto Kennedy Work Phone: [facility] Start: 08-08-2022 Non-patient / Non-visit Dr. Ernesto Kennedy Work Phone: [facility] Start: 08-08-2022 Telephone encounter Stu elena DO Work Phone: Hematology/Oncology Comment on above: Patient Update Start: 08-08-2022 Non-patient / Non-visit Dr. Ernesto Kennedy Work Phone: [facility] Start: 08-07-2022 Non-patient / Non-visit Dr. Ernesto Kennedy Work Phone: [facility] Start: 08-07-2022 End: 08-11-2022 Evaluation and management of inpatient Dr. Zachary Kennedy Work Phone: [facility] Start: 08-04-2022 End: 08-04-2022 Patient encounter procedure Bri Scott PA-C Work Phone: General Surgery Comment on above: Chronic superficial gastritis without bleeding (Primary Dx) Start: 07-19-2022 End: 07-19-2022 Admission to [facility] 1 Work Phone: [facility] Start: 07-19-2022 End: 07-19-2022 ambulatory [place] [id number] Work Phone: Pre Anesthesia Comment on above: Pre-op evaluation (P rimary Dx); Chronic atrial fibrillation (HCC); Mixed hyperlipidemia; Coronary artery disease due to lipid rich plaque; ICD (implantable cardioverter-defibrillator) in place; Ischemic cardiomyopathy; Primary hypertension; GERD without esophagitis; Type 2 diabetes mellitus with stage 2 chronic kidney disease, without long-term current use of insulin (HCC); Stage 3a chronic kidney disease (HCC); Platelets decreased (HCC); Iron deficiency anemia due to chronic blood loss; CLL (chronic lymphocytic leukemia) (HCC) Start: 07-19-2022 End: 07-19-2022 Preprocedural examination done [place] [address] Work Phone: Pre Anesthesia Start: 07-18-2022 Telephone encounter Anisha Barnes PA-C Work Phone: Pre Anesthesia Comment on above: Medication Question Start: 07-07-2022 Chart abstracting Judy Vang MA [facility] Start: 07-06-[address] Alessio Kennedy Work Phone: [facility] Start: 07-06-2022 End: 07-06-2022 Admission to same day surgery center Dr. Zachary Kennedy Work Phone: [facility] Start: 07-06-2022 End: 07-06-[address] Zachary Kennedy Work Phone: 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); PAD (peripheral artery disease) (HCC); Stage 3 chronic kidney disease, unspecified whether stage 3a or 3b CKD (HCC); Type 2 diabetes mellitus with stage 3 chronic kidney disease, without long-term current use of insulin, unspecified whether stage 3a or 3b CKD (HCC); Chronic atrial fibrillation (HCC); ICD (implantable cardioverter-defibrillator) in place; Mixed hyperlipidemia; Status post coronary artery stent placement; GERD without esophagitis; Iron deficiency anemia due to chronic blood loss; CLL (chronic lymphocytic leukemia) (HCC) Start: 06-26-2022 Telephone encounter Medhat escobar MD Work Phone: General Surgery Comment on above: Patient Question Start: 06-20-2022 End: 06-20-2022 Patient encounter procedure Bri Scott PA-C Work Phone: General Surgery Comment on above: Iron deficiency anem ia, unspecified iron deficiency anemia type (Primary Dx); ICD (implantable cardioverter-defibrillator) in place; CLL (chronic lymphocytic leukemia) (HCC); On continuous oral anticoagulation Refill Request Start: 06-15-2022 End: 06-16-2022 ambulatory ZACHARY KENNEDY MD Facility:[facility] Start: 06-15-2022 End: 06-15-2022 Patient encounter procedure DENISE HERNANDES MD [facility] Start: 06-13-2022 End: 06-13-2022 Patient encounter procedure Abigail Moss DO Work Phone: Vascular Surgery Comment on above: PAD (peripheral maurilio ry disease) (HCC) (Primary Dx) Start: 06-08-2022 Telephone encounter Stu elena DO Work Phone: Hematology/Oncology Comment on above: Results (Low iron) Start: 06-07-2022 Telephone encounter Stu elena DO Work Phone: Hematology/Oncology Comment on above: Results Start: 06-05-2022 End: 06-05-2022 ambulatory Stu Lloyd DO Work Phone: Hematology/Oncology Comment on above: CLL (chronic lymphoc ytic leukemia) (HCC) (Primary Dx); Anemia, unspecified type Start: 06-05-2022 End: 06-05-2022 Patient encounter procedure Stu Lloyd DO Work Phone: [facility] Start: 06-02-2022 Orders Only Stu Worley Work Phone: Hematology/Oncology Comment on above: CLL (chronic lymphoc ytic leukemia) (HCC) (Primary Dx) Start: 01-20-2022 ambulatory [facility] Hematology /Oncology Comment on above: [employer] Start: 01-20-2022 E-mail encounter fro m caregiver [facility] Start: 12-12-2021 End: 12-12-2021 Patient encounter procedure Zachary Kennedy MD Work Phone: [facility] Comment on above: GERD without esophag itis (Primary Dx); Coronary artery disease due to lipid rich plaque; ICD (implantable cardioverter-defibrillator) in place; Ischemic cardiomyopathy; PAD (peripheral artery disease) (HCC); Mixed hyperlipidemia; Type 2 diabetes mellitus with stage 3 chronic kidney disease, without long-term current use of insulin, unspecified whether stage 3a or 3b CKD (HCC); Stage 3 chronic kidney disease, unspecified whether stage 3a or 3b CKD (HCC); CLL (chronic lymphocytic leukemia) (HCC) Start: 12-08-2021 End: 12-08-2021 Patient encounter procedure DENISE HERNANDES MD [facility] Start: 12-07-2021 End: 12-07-2021 Nursing evaluation of patient and report Mi Nurse Work Phone: [facility] Comment on above: Need for COVID-19 va ccine (Primary Dx) Start: 12-06-2021 End: 12-06-2021 ambulatory Stu Lloyd DO Work Phone: Hematology/Oncology Comment on above: CLL (chronic lymphoc ytic leukemia) (HCC) (Primary Dx) Start: 12-06-2021 End: 12-06-2021 Patient encounter procedure Stu Lloyd DO Work Phone: [facility] Start: 12-05-2021 Orders Only Stu Worley Work Phone: Hematology/Oncology Comment on above: CLL (chronic lymphoc ytic leukemia) (HCC) (Primary Dx) Start: 11-24-2021 Telephone encounter Zachary Kennedy MD Work Phone: [facility] Comment on above: Vaccinations Start: 10-12-2021 Telephone encounter Stu elena DO Work Phone: Hematology/Oncology Comment on above: Patient Update Start: 09-27-2021 End: 09-27-2021 Patient encounter procedure Abigail Moss DO Work Phone: Vascular Surgery Comment on above: PAD (peripheral maurilio ry disease) (HCC) Start: 09-15-2021 Orders Only Abigail Melendez Angel wilkerson DO Work Phone: Vascular Surgery Comment on above: PAD (peripheral maurilio ry disease) (HCC) (Primary Dx) Start: 08-22-2021 Specialty Pharmacy [facility] Comment on above: [facility] Oral Oncology/he matology - Medication Refill ([employer]); [facility] Oral Oncology/hematology - Patient Assistance (JJPAF ) Start: 08-16-2021 End: 08-16-2021 Patient encounter procedure DENISE HERNANDES MD [facility] Start: 08-09-2021 Telephone encounter Stu elena DO Work Phone: Hematology/Oncology Comment on above: Medication Problem Start: 08-03-2021 End: 08-03-2021 Patient encounter procedure Zachary Kennedy MD Work Phone: [facility] Comment on above: Coronary artery dise ase due to lipid rich plaque (Primary Dx); Chronic atrial fibrillation (HCC); Mixed hyperlipidemia; PAD (peripheral artery disease) (HCC) Start: 07-25-2021 Specialty Pharmacy Amrsis white [facility] Comment on above: [facility] Oral Oncology/he matology - Medication Refill ([facility]) Start: 07-21-2021 Chart abstracting Judy Vang MA [facility] Start: 07-20-2021 Telephone encounter Zachary Kennedy MD Work Phone: [facility] Comment on above: Results Start: 07-20-2021 End: 07-20-2021 Patient encounter procedure Zachary Kennedy MD Work Phone: [facility] Comment on above: PAD (peripheral maurilio ry disease) (HCC) (Primary Dx); Stage 3 chronic kidney disease, unspecified whether stage 3a or 3b CKD (HCC); Iron malabsorption; Chronic atrial fibrillation (HCC); Type 2 diabetes mellitus with stage 3 chronic kidney disease, without long-term current use of insulin, unspecified whether stage 3a or 3b CKD (HCC); Mixed hyperlipidemia; CLL (chronic lymphocytic leukemia) (HCC); Edema, unspecified type Start: 06-24-2021 Specialty Pharmacy [facility] Jorge white [facility] Comment on above: SPP Oral Oncology/he matology - Medication Refill (imbruvica 140mg) Start: 06-16-2021 Telephone encounter Soumya whitlock APRN.HEATING AND BLENDING SUPERVISOR Work Phone: Hematology/Oncology Comment on above: Results Start: 06-16-2021 End: 06-16-2021 Subsequent hospital visit by physician Fe [facility] Gisell Irby Work Phone: Radiology Comment on above: CLL (chronic lymphoc ytic leukemia) (HCC) [C91.10] Start: 06-16-2021 End: 06-16-2021 ambulatory Soumya Liu APRN.HEATING AND BLENDING SUPERVISOR Work Phone: Hematology/Oncology Comment on above: CLL (chronic lymphoc ytic leukemia) (HCC) (Primary Dx); Acute pain of right knee Start: 06-16-2021 End: 06-16-2021 Patient encounter procedure Soumya Liu APRN.HEATING AND BLENDING SUPERVISOR Work Phone: [facility] Start: 06-15-2021 Orders Only Mariax Medina MD Work Phone: Hematology/Oncology Comment on above: CLL (chronic lymphoc ytic leukemia) (HCC) (Primary Dx) Start: 06-11-2021 End: 06-11-2021 Patient encounter procedure DENISE HERNANDES MD [facility] Start: 06-10-2021 End: 06-10-2021 Patient encounter procedure DENISE HERNANDES MD [facility] Start: 09-22-2016 Ambulatory PHY WO ID REFERRING Fac ility:[facility] Procedures Date Procedure Procedure Detail Performing Clinician Start: 09-23-2024 Ct head/brain w/o co ntrast material Jaja Gaona MD Work Phone: Start: 06-17-2024 Adult depression scr eening assessment Zachary Kennedy MD Work Phone: Start: 06-25-2023 Adult depression scr eening assessment Ya Morel PUBLIC HEALTH EPIDEMIOLOGIST.HEATING AND BLENDING SUPERVISOR Work Phone: Start: 08-09-[address] Amparo Kennedy Work Phone: Start: 06-15-2022 Creatinine [Mass/vol ume] in Urine [facility] Provider Start: 06-15-2022 Hemoglobin A1c/Hemoglobin.total in Blood [facility] Provider Start: 06-15-[address] (FOR REMOTE [facility] USE) [facility] Provider Start: 12-07-2021 PFIZER-BIONTECH COVI D-19 BIVALENT BOOSTER VACCINE, AGE 12+ YR Zachary Kennedy MD Work Phone: Start: 06-16-2021 Radiologic examinati on knee 1/2 views Soumya Liu PUBLIC HEALTH EPIDEMIOLOGIST.HEATING AND BLENDING SUPERVISOR Work Phone: Start: 05-21-2021 Hemoglobin A1c/Hemoglobin.total in Blood [facility] Provider Start: 05-21-2021 Lipid panel [facility] Provid er Start: 12-02-2018 History of placement of stent for coronary artery disease Status post coronary artery stent placement Marixa Medina MD Work Phone: Start: 11-02-2017 Echocardiography BILLIE HERNANDES MD Comment on above: Summary: 1. Left ventricle: The cavity size is increased. Wall thickness is normal. Systolic function is moderately reduced. The estimated ejection fraction is 30-35%. Moderate diffuse hypokinesis. 2. Left atrium: The atrium is mildly dilated. 3. Right ventricle: Systolic pressure is mildly to moderately increased. The RV systolic pressure by Doppler is 35 mm Hg. 4. Right atrium: The estimated right atrial pressure is 3 mm Hg. Start: 10-04-2017 Replacement of pulse generator of implantable cardioverter defibrillator using fluoroscopic guidance DENISE HERNANDES MD Comment on above: Lt dual-ICD [09/05/10 ]: Medtronic Virtuoso II , model W410PCU, serial #[id number]. The right atrial lead is a Medtronic model 5076, serial #[id number]. The right ventricular defibrillating lead is a Medtronic model 6947-65, serial #[id number] GENERATOR REPLACEMENT 10/04/2017 MEDTRONIC ICD-DR DOVEMBID1 DINA MRI XT US DE 9(DUAL CHAMBER) MODEL [id number] SERIAL [id number] RA LEAD 5076-52 SERIAL [id number] RV LEAD [id number] SERIAL [id number] Start: 03-12-2010 Defibrillator, devic e (physical object) DENISE HERNANDES MD Comment on above: Lt dual-ICD [09/05/10 ]: Medtronic Virtuoso BOLIVAR CROSS , model [id number], serial #[id number]. The right atrial lead is a Medtronic model 5076, serial #[id number]. The right ventricular defibrillating lead is a Medtronic model 6947-65, serial #[id number] GENERATOR REPLACEMENT 10/04/2017 MEDTRONIC ICD- DDMBID1 DINA MRI XT US DE 9(DUAL CHAMBER) MODEL [id number] SERIAL [id number] RA LEAD 5076-52 SERIAL [id number] RV LEAD [id number] SERIAL [id number] PACEMAKER Start: 03-12-1997 Coronary artery bypa ss grafts x 3 DENISE HERNANDES MD Start: 03-12-1997 History of coronary artery bypass grafting History of coronary artery bypass surgery Nathaniel Murillo EAR MUFF ASSEMBLER-C Comment on above: CABG x 2 Sequential JACOBSON to LAD and D1 1997 Angioplasty of artery BILLIE HERNANDES MD Comment on above: TOTAL OF 8 STENTS History of placement of stent for coronary artery disease Status post coronary artery stent placement Zachary Kennedy MD Work Phone: History of placement of stent for coronary artery disease History of coronary artery stent placement Dr. Zachary Kennedy Work Phone: Comment on above: PCI-CHANTE-Mid and Osti al LCx w/ Promus stents 04/2002; WRR-FIE-Ejpx and Mid RCA 2003; CHANTE-ISR-Mid LCx w/ 2.5 x 18 mm Promus Stent and CHANTE-Ostium LCx w/ 2.75 x 18 mm Promus Stent 03/2010 History of placement of stent for coronary artery disease History of coronary artery stent placement Nathaniel Murillo EAR MUFF ASSEMBLER-C Measurement of occul t blood in stool specimen using immunoassay Dr. Zachary Kennedy Work Phone: Prosthetic arthropla sty of the hip DENISE HERNANDES MD Small incision phacoemulsification of cataract and insertion of intraocular lens DENISE HERNANDES MD Structure of carpal canal (body structure) DENISE HERNANDES MD Plan of Treatment Date Care Activity Detail Author Start: 06-21-2030 Urine microalbumin profile [facility] Start: 07-08-2025 End: 07-08-2025 Patient encounter procedure 07/08/2025 10:00 AM EDT Office Visit Vasculary Surgery [address] [place] [id number] PAD (peripheral artery disease) [I73.9] Vasculary Surgery Comment on above: PAD (peripheral maurilio ry disease) [I73.9] Start: 07-07-2025 End: 07-07-2025 Patient encounter procedure 07/07/2025 10:45 AM EDT Office Visit Vascular Surgery [address] [place] [id number] Abigail Moss, DO [address] [place] [address] 1 year follow up after testing Vascular Surgery Comment on above: 1 year follow up aft er testing Start: 06-17-2025 Anxiety Screening Anxiety Screening [facility] Start: 06-17-2025 Depression Screening Depression Scre ening [facility] Start: 06-17-2025 Diabetic foot examination Diabetic F oot Exam [facility] Start: 12-27-2024 End: 03-28-2025 Comprehensive metabolic 2000 panel - Serum or Plasma COMPREHENSIVE METABOLIC PANEL Lab Routine Primary hypertension Mixed hyperlipidemia Expected: 12/27/2024, Expires: 03/28/2025 [facility] Comment on above: Expected: 12/27/2024 , Expires: 03/28/2025 Start: 12-27-2024 End: 03-28-2025 Hemoglobin A1c in Blood HEMOGLOBIN A1C Lab Routine Type 2 diabetes mellitus with stage 3 chronic kidney disease, without long-term current use of insulin, unspecified whether stage 3a or 3b CKD (HCC) Expected: 12/27/2024, Expires: 03/28/2025 [facility] Work Phone: Comment on above: Expected: 12/27/2024 , Expires: 03/28/2025 Start: 12-27-2024 End: 03-28-2025 Lipid 1996 panel - Serum or Plasma LIPID PANEL, FASTING Lab Routine Primary hypertension Mixed hyperlipidemia Expected: 12/27/2024, Expires: 03/28/2025 [facility] Comment on above: Expected: 12/27/2024 , Expires: 03/28/2025 Start: 12-24-2024 Hemoglobin A1c measurement HbA1C [facility] Start: 12-17-2024 Hepatitis B screening Urine Al bumin:Creatinine Ratio [facility] Start: 12-17-2024 Hepatitis B surface antibody level LDL Cholesterol [facility] Start: 12-11-2024 End: 12-11-2024 Patient encounter procedure 12/11/2024 12:30 PM EDT Office Visit Neurology [address] [address] Jaja Gaona MD [address] [place] [address] Memory loss [R41.3] Neurology Comment on above: Memory loss [R41.3] Start: 11-28-2024 End: 11-28-2024 Patient encounter procedure 11/28/2024 4:20 PM EDT Office Visit [facility] [address] [place], [place] [address] Zachary Kennedy MD [address] [place], [place] [id number] Medicare Wellness [facility] Comment on above: Medicare Wellness Start: 11-10-2024 Influenza vaccination Influenza Vacc ine (#1) [facility] Start: 10-23-2024 Evaluation of diagno stic study results [facility] Start: 09-23-2024 End: 09-23-2024 Patient encounter procedure [facility] Comment on above: 1 month follow up dm started new med Dx: Abnormal CT scan of head [R93.0]; Memory loss [R41.3] Start: 09-22-2024 End: 12-22-2024 Hemoglobin A1c in Blood HEMOGLOBIN A1C Lab Routine Type 2 diabetes mellitus with stage 3 chronic kidney disease, without long-term current use of insulin, unspecified whether stage 3a or 3b CKD (HCC) Expected: 09/22/2024, Expires: 12/22/2024 [facility] Comment on above: Expected: 09/22/2024 , Expires: 12/22/2024 Start: 09-19-2024 End: 09-19-2024 ambulatory [facility] Comment on above: CBC 3MO OV/EARLY LABS Start: 09-16-2024 Hemoglobin A1c measurement HbA1C [facility] Start: 09-09-2024 End: 09-09-2024 Patient encounter procedure Neurology Comment on above: Abnormal CT scan of head [R93.0]; Memory loss [R41.3] Memory loss [R41.3] Start: 09-04-2024 End: 09-04-2024 Patient encounter procedure 09/04/2024 10:00 AM EDT Office Visit Neurology [address] [phone] Janeen Goodman MD [address] [facility] [address] [place] [address] Ataxia, possible NPH Neurology Comment on above: Ataxia, possible NPH Start: 08-21-2024 End: 08-21-2024 ambulatory 08/21/2024 3:45 PM EDT OT/PT/Speech Visit [facility] [address] [place] [address] Edmond Saavedra, PT ataxia re-eval [facility] Comment on above: ataxia re-eval Start: 08-13-2024 End: 08-13-2024 ambulatory 08/13/2024 3:00 PM EDT OT/PT/Speech Visit [facility] [address] [place] [address] Edmond Saavedra, PT ataxia [facility] Comment on above: ataxia Start: 08-06-2024 End: 08-06-2024 ambulatory 08/06/2024 11:45 AM EDT OT/PT/Speech Visit [facility] [address] [place] [address] Edomnd Saavedra, PT [facility] Comment on above: weakness Start: 07-31-2024 End: 07-31-2024 ambulatory 07/31/2024 11:00 AM EDT OT/PT/Speech Visit [facility] [address] [place] [address] Naheed Becerra, AQUATICS DIRECTOR weakness [facility] Comment on above: weakness Start: 07-25-2024 End: 07-25-2024 ambulatory 07/25/2024 11:00 AM EDT OT/PT/Speech Visit [facility] [address] [place] [address] Naheed Becerra, AQUATICS DIRECTOR weakness [facility] Comment on above: weakness Start: 07-23-2024 End: 07-23-2024 ambulatory 07/23/2024 2:00 PM EDT OT/PT/Speech Visit [facility] [address] [place] [address] Naheed Becerra, AQUATICS DIRECTOR weakness [facility] Comment on above: weakness Start: 07-23-2024 End: 10-22-2024 Basic metabolic 2000 panel - Serum or Plasma [facility] Work Phone: Comment on above: Expected: 07/23/2024 , Expires: 10/22/2024 Start: 07-23-2024 End: 07-23-2024 Patient encounter procedure 07/23/2024 11:20 AM EDT Office Visit [facility] [address] [place] [address] Ya Morel APRN.HEATING AND BLENDING SUPERVISOR [address] [place], [place] [id number] 1 month follow up dm started new med [facility] Comment on above: 1 month follow up dm started new med Start: 07-22-2024 End: 07-22-2024 Patient encounter procedure 07/22/2024 12:45 PM EDT Office Visit Neurology [address] [place] [address] Almita Rai PA-C [address] [place] [address] Ataxia [R27.0] Neurology Comment on above: Ataxia [R27.0] Start: 07-16-2024 End: 07-16-2024 ambulatory 07/16/2024 1:30 PM EDT OT/PT/Speech Visit [facility] [address] [place] [address] Edmond Saavedra, PT ataxia [facility] Comment on above: ataxia Start: 07-08-2024 End: 07-08-2024 Patient encounter procedure Vasculary Surgery Comment on above: PAD (peripheral maurilio ry disease) ([facility]) [I73.9] 1 year follow up aft er testing carotid dpx Start: 07-02-2024 End: 07-02-2024 Patient encounter procedure 07/02/2024 1:20 PM EDT Appointment Cat Scan [address] [place] [address] [facility] (current) use of anticoagulants [Z79.01]; Ataxia [R27.0]; Memory loss [R41.3] Cat Scan Comment on above: [facility] (current) use of anticoagulants [Z79.01]; Ataxia [R27.0]; Memory loss [R41.3] Start: 06-24-2024 Anxiety Screening Anxiety Screening [facility] Start: 06-24-2024 Depression Screening Depression Scre ening [facility] Start: 06-20-2024 End: 06-20-2024 ambulatory 06/20/2024 9:40 AM EDT Visit (SP) Office Hematology/Oncology [address] [place] [id number] Stu Lloyd DO [address] [place] [address] OV* Hematology/Oncology Comment on above: OV* Start: 06-17-2024 End: 06-17-2024 Patient encounter procedure 06/17/2024 2:20 PM EDT Office Visit [facility] [address] [place] [address] Zachary Kennedy MD [address] [place] [address] 6 mo f/u *AWV due* [facility] Comment on above: 6 mo f/u *AWV due* Start: 06-17-2024 End: 09-16-2024 CBC W Auto Differential panel - Blood [facility] Work Phone: Comment on above: Expected: 06/17/2024 , Expires: 09/16/2024 Start: 06-17-2024 End: 09-16-2024 Cobalamin (Vitamin B12) [Mass/volume] in Serum or Plasma [facility] Comment on above: Expected: 06/17/2024 , Expires: 09/16/2024 Start: 06-17-2024 End: 09-16-2024 Comprehensive metabolic 2000 panel - Serum or Plasma [facility] Comment on above: Expected: 06/17/2024 , Expires: 09/16/2024 Start: 06-17-2024 End: 09-16-2024 Folate [Mass/volume] in Serum or Plasma [facility] Comment on above: Expected: 06/17/2024 , Expires: 09/16/2024 Start: 06-17-2024 End: 09-16-2024 Hemoglobin A1c in Blood [facility] Comment on above: Expected: 06/17/2024 , Expires: 09/16/2024 Start: 06-17-2024 End: 09-16-2024 Iron and Iron binding capacity panel - Serum or Plasma [facility] Comment on above: Expected: 06/17/2024 , Expires: 09/16/2024 Start: 06-17-2024 End: 09-16-2024 SYPHILIS TREPONEMAL W/REFLEX [facility] Comment on above: Expected: 06/17/2024 , Expires: 09/16/2024 Start: 06-17-2024 End: 09-16-2024 Thyrotropin [Units/volume] in Serum or Plasma [facility] Comment on above: Expected: 06/17/2024 , Expires: 09/16/2024 Start: 06-12-2024 Covid-19 Vaccine ( season) Covid-19 Vaccine () [facility] Start: 06-12-2024 Covid-19 Vaccine (8 - Pfizer risk ) Covid-19 Vaccine (8 - Pfizer risk ) [facility] Start: 03-22-2024 End: 06-21-2024 Hemoglobin A1c in Blood HEMOGLOBIN A1C Lab Routine Type 2 diabetes mellitus with stage 2 chronic kidney disease, without long-term current use of insulin (HCC) (HCC) Expected: 03/22/2024, Expires: 06/21/2024 [facility] Work Phone: Comment on above: Expected: 03/22/2024 , Expires: 06/21/2024 Start: 03-19-2024 Hemoglobin A1c measurement HbA1C [facility] Start: 03-12-2024 Medicare Advantage A nnual Wellness Visit Medicare Advantage Annual Wellness Visit [facility] Start: 02-07-2024 Covid-19 Vaccine ( season) Covid-19 Vaccine ( season) [facility] Start: 12-23-2023 Hepatitis B Vaccine (1 of 3 - Risk 3-dose series) Hepatitis B Vaccine (1 of 3 - Risk 3-dose series) [facility] Comment on above: Postponed from 11/05 (Declined at this time) Start: 12-20-2023 Hepatitis B screening Urine Al bumin:Creatinine Ratio [facility] Start: 12-18-2023 End: 03-18-2024 Comprehensive metabolic 2000 panel - Serum or Plasma [facility] Work Phone: Comment on above: Expected: 12/18/2023 , Expires: 03/18/2024 Start: 12-18-2023 End: 03-18-2024 Hemoglobin A1c in Blood [facility] Comment on above: Expected: 12/18/2023 , Expires: 03/18/2024 Start: 12-18-2023 End: 03-18-2024 LIPID PANEL, NONFASTING [facility] Comment on above: Expected: 12/18/2023 , Expires: 03/18/2024 Start: 12-18-2023 End: 03-18-2024 Magnesium [Mass/volume] in Serum or Plasma [facility] Comment on above: Expected: 12/18/2023 , Expires: 03/18/2024 Start: 12-18-2023 End: 03-18-2024 Thyrotropin [Units/volume] in Serum or Plasma [facility] Comment on above: Expected: 12/18/2023 , Expires: 03/18/2024 Start: 12-18-2023 End: 12-18-2023 Patient encounter procedure [facility] Comment on above: 6 mo f/u Start: 08-15-2023 End: 08-15-2023 ambulatory 08/15/2023 2:45 PM EDT OT/PT/Speech Visit [facility] [address] [place] [address] Marcos, Lowell R, AQUATICS DIRECTOR Chronic Ischemia [facility] Comment on above: Chronic Ischemia Start: 08-08-2023 End: 08-08-2023 ambulatory 08/08/2023 4:15 PM EDT OT/PT/Speech Visit [facility] [place] [address] [place] [address] Lowell Rodríguez, AQUATICS DIRECTOR Chronic Ischemia [facility] [place] Comment on above: Chronic Ischemia Start: 08-03-2023 End: 08-03-2023 ambulatory 08/03/2023 2:00 PM EDT OT/PT/Speech Visit [facility] [place] [address] [place] [address] Caroline Hood, PT CHRONIC ISCHEMIA RE- EVAL [facility] [place] Comment on above: CHRONIC ISCHEMIA RE- EVAL Start: 08-01-2023 End: 08-01-2023 ambulatory 08/01/2023 2:00 PM EDT OT/PT/Speech Visit [facility] [address] [place] [address] Lowell Rodríguez, AQUATICS DIRECTOR 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] [facility] [place] Comment on above: Chronic ischemic lef t anterior cerebral artery stroke [Z86.73] Start: 07-30-2023 End: 07-30-2023 ambulatory 07/30/2023 2:00 PM EDT OT/PT/Speech Visit [facility] [address] [place] [address] Lowell Rodríguez, AQUATICS DIRECTOR 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] [facility] [place] Comment on above: Chronic ischemic lef t anterior cerebral artery stroke [Z86.73] Start: 07-25-2023 End: 07-25-2023 ambulatory 07/25/2023 2:00 PM EDT OT/PT/Speech Visit [facility] [place] [address] [place] [address] Lowell Rodríguez, AQUATICS DIRECTOR 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] [facility] [place] Comment on above: Chronic ischemic lef t anterior cerebral artery stroke [Z86.73] Start: 07-23-2023 End: 07-23-2023 ambulatory [facility] Comment on above: Chronic ischemic lef t anterior cerebral artery stroke [Z86.73] Start: 07-18-2023 End: 07-18-2023 ambulatory 07/18/2023 2:00 PM EDT OT/PT/Speech Visit [facility] [place] [address] [place] [address] Lowell Rodríguez, AQUATICS DIRECTOR 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73] Start: 07-10-2023 End: 07-10-2023 Patient encounter procedure Vasculary Surgery Comment on above: PAD (peripheral maurilio ry disease) (FORMERLY [facility]) [I73.9] ASK DR MOSS FOR NEW ORDER FOR THIS TEST OLD ONE RAN OUT BEFORE THE RESCHEDULD DATE [facility] 1 year follow up Start: 07-09-2023 End: 07-09-2023 ambulatory 07/09/2023 2:00 PM EDT OT/PT/Speech Visit [facility] [place] [address] [place] [address] Marcos, Lowell R, AQUATICS DIRECTOR 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] [facility] Comment on above: Chronic ischemic lef t anterior cerebral artery stroke [Z86.73] Start: 07-05-2023 3 comp foot exam completed DIABETIC FOOT EXAM [facility] Start: 07-05-2023 Diabetic foot examination Diabetic F oot Exam [facility] Start: 07-04-2023 End: 07-04-2023 ambulatory 07/04/2023 2:00 PM EDT OT/PT/Speech Visit [facility] [address] [place] [address] Lowell Rodríguez R, AQUATICS DIRECTOR 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] [facility] Comment on above: Chronic ischemic lef t anterior cerebral artery stroke [Z86.73] Start: 06-25-2023 End: 09-24-2023 CBC W Auto Differential panel - Blood COMPLETE BLOOD COUNT AND DIFFERENTIAL Lab Routine Coronary artery disease due to lipid rich plaque Type 2 diabetes mellitus with stage 2 chronic kidney disease, without long-term current use of insulin (HCC) (HCC) Expected: 06/25/2023, Expires: 09/24/2023 [facility] Comment on above: Expected: 06/25/2023 , Expires: 09/24/2023 Start: 06-25-2023 End: 09-24-2023 Comprehensive metabolic 2000 panel - Serum or Plasma COMPREHENSIVE METABOLIC PANEL Lab Routine Coronary artery disease due to lipid rich plaque Type 2 diabetes mellitus with stage 2 chronic kidney disease, without long-term current use of insulin (HCC) (HCC) Dyslipidemia Expected: 06/25/2023, Expires: 09/24/2023 [facility] Work Phone: Comment on above: Expected: 06/25/2023 , Expires: 09/24/2023 Start: 06-25-2023 End: 09-24-2023 Hemoglobin A1c in Blood HEMOGLOBIN A1C Lab Routine Coronary artery disease due to lipid rich plaque Type 2 diabetes mellitus with stage 2 chronic kidney disease, without long-term current use of insulin (HCC) (HCC) Expected: 06/25/2023, Expires: 09/24/2023 [facility] Comment on above: Expected: 06/25/2023 , Expires: 09/24/2023 Start: 06-25-2023 End: 09-24-2023 Lipid 1996 panel - Serum or Plasma LIPID PANEL BASIC Lab Routine Coronary artery disease due to lipid rich plaque Type 2 diabetes mellitus with stage 2 chronic kidney disease, without long-term current use of insulin (HCC) (HCC) Dyslipidemia Expected: 06/25/2023, Expires: 09/24/2023 [facility] Comment on above: Expected: 06/25/2023 , Expires: 09/24/2023 Start: 06-23-2023 Hemoglobin A1c measurement HbA1C [facility] Start: 06-16-2023 Hepatitis B screening URINE AL BUMIN:CREATININE RATIO [facility] Start: 06-16-2023 Hepatitis B surface antibody level LDL CHOLESTEROL [facility] Start: 03-12-2023 Advance Directive Discussion Advance Directive Discussion [facility] Start: 03-12-2023 Behavioral Health Screening Behavioral Health Screening [facility] Start: 02-09-2023 Covid-19 Vaccine () Covid-19 Vaccine () [facility] Start: 12-22-2022 End: 02-21-2023 Hemoglobin A1c in Blood [facility] Work Phone: Comment on above: Expected: 12/22/2022 , Expires: 02/21/2023 Start: 12-22-2022 End: 02-21-2023 Thyrotropin [Units/volume] in Serum or Plasma [facility] Work Phone: Comment on above: Expected: 12/22/2022 , Expires: 02/21/2023 Start: 12-15-2022 Hemoglobin A1c/Hemoglobin.total in Blood HBA1C [facility] Start: 11-10-2022 Influenza vaccination Influenza Vacc ine (#1) [facility] Start: 08-15-2022 End: 10-15-2022 Basic metabolic 2000 panel - Serum or Plasma [facility] Work Phone: Comment on above: Expected: 08/15/2022 , Expires: 10/15/2022 Start: 08-15-2022 End: 10-15-2022 CBC W Auto Differential panel - Blood [facility] Work Phone: Comment on above: Expected: 08/15/2022 , Expires: 10/15/2022 Start: 08-12-2022 [facility] Start: 08-11-[address] [facility] Start: 08-09-2022 Administration of bl ood product [facility] Start: 08-09-2022 Administration of bl ood product [facility] Start: 08-09-2022 Administration of bl ood product [facility] Start: 08-08-2022 [facility] Start: 08-08-2022 [facility] Start: 08-08-2022 Referral to service [facility] Start: 08-08-2022 End: 08-08-2022 Administration of blood product [facility] Start: 08-07-2022 Chemotherapy care management [facility] Start: 08-07-2022 Following clinical pathway protocol [facility] Start: 08-07-2022 Ambulation without limitation [facility] Start: 08-07-2022 Assessment of risk o f venous thromboembolism [facility] Start: 08-07-2022 Care regimes management [facility] Start: 08-07-2022 Documentation procedure [facility] Start: 08-07-2022 Insertion of cathete r into peripheral vein [facility] Start: 08-07-2022 Measuring intake and output [facility] Start: 08-07-2022 Notification of physician [facility] Start: 08-07-2022 Providing care accor ding to standard [facility] Start: 08-07-2022 Referral to gastroenterology service [facility] Start: 08-07-2022 [facility] Start: 08-07-2022 Verification routine [facility] Start: 08-07-2022 Admission procedure [facility] Start: 08-07-2022 Patient referral to dietitian [facility] Start: 07-20-2022 3 comp foot exam completed DIABETIC FOOT EXAM [facility] Start: 06-05-2022 End: 08-05-2022 CBC W Auto Differential panel - Blood CBC + DIFF Lab STAT CLL (chronic lymphocytic leukemia) (HCC) Expected: 06/05/2022, Expires: 08/05/2022 [facility] Work Phone: Comment on above: Expected: 06/05/2022 , Expires: 08/05/2022 Start: 06-05-2022 End: 08-05-2022 Comprehensive metabolic 2000 panel - Serum or Plasma COMP METABOLIC PANEL Lab STAT CLL (chronic lymphocytic leukemia) (HCC) Expected: 06/05/2022, Expires: 08/05/2022 [facility] Work Phone: Comment on above: Expected: 06/05/2022 , Expires: 08/05/2022 Start: 06-05-2022 End: 08-05-2022 Lactate dehydrogenase [Enzymatic activity/volume] in Serum or Plasma LD LACTATE DEHYDRO Lab Routine CLL (chronic lymphocytic leukemia) ([facility]) Expected: 06/05/2022, Expires: 08/05/2022 [facility] Work Phone: Comment on above: Expected: 06/05/2022 , Expires: 08/05/2022 Start: 03-12-2022 ADVANCE DIRECTIVE DISCUSSION ADVANCE DIRECTIVE DISCUSSION [facility] Start: 03-12-2022 DEPRESSION ASSESSMENT DEPRESSION ASS ESSMENT [facility] Start: 02-01-2022 Covid-19 Vaccine (6 - Pfizer risk series) Covid-19 Vaccine (6 - Pfizer risk series) [facility] Start: 12-06-2021 End: 02-05-2022 CBC W Auto Differential panel - Blood [facility] Work Phone: Comment on above: Expected: 12/06/2021 , Expires: 02/05/2022 Start: 12-06-2021 End: 02-05-2022 Comprehensive metabolic 2000 panel - Serum or Plasma COMP METABOLIC PANEL Lab Routine CLL (chronic lymphocytic leukemia) (HCC) Expected: 12/06/2021, Expires: 02/05/2022 [facility] Work Phone: Comment on above: Expected: 12/06/2021 , Expires: 02/05/2022 Start: 12-06-2021 End: 02-05-2022 Lactate dehydrogenase [Enzymatic activity/volume] in Serum or Plasma LD LACTATE DEHYDRO Lab Routine CLL (chronic lymphocytic leukemia) (HCC) Expected: 12/06/2021, Expires: 02/05/2022 [facility] Work Phone: Comment on above: Expected: 12/06/2021 , Expires: 02/05/2022 Start: 11-21-2021 Hemoglobin A1c/Hemoglobin.total in Blood HBA1C [facility] Start: 11-10-2021 Influenza vaccination INFLUENZA (#1) [facility] Start: 08-18-2021 COVID-19 VACCINE (5 - Booster for Pfizer series) COVID-19 VACCINE (5 - Booster for Pfizer series) [facility] Start: 08-17-2021 Glaucoma screening Dilated Retinal E xam [facility] Start: 08-17-2021 Hepatitis C antibody , confirmatory test DILATED RETINAL EXAM [facility] Start: 08-13-2021 Hepatitis B surface antibody level LDL CHOLESTEROL [facility] Start: 07-23-2021 3 comp foot exam completed DIABETIC FOOT EXAM [facility] Start: 06-16-2021 End: 08-16-2021 CBC W Auto Differential panel - Blood CBC + DIFF Lab STAT CLL (chronic lymphocytic leukemia) ([facility]) Expected: 06/16/2021, Expires: 08/16/2021 [facility] Work Phone: Comment on above: Expected: 06/16/2021 , Expires: 08/16/2021 Start: 06-16-2021 End: 08-16-2021 Comprehensive metabolic 2000 panel - Serum or Plasma COMP METABOLIC PANEL Lab Routine CLL (chronic lymphocytic leukemia) ([facility]) Expected: 06/16/2021, Expires: 08/16/2021 [facility] Work Phone: Comment on above: Expected: 06/16/2021 , Expires: 08/16/2021 Start: 06-16-2021 End: 08-16-2021 Lactate dehydrogenase [Enzymatic activity/volume] in Serum or Plasma LD LACTATE DEHYDRO Lab Routine CLL (chronic lymphocytic leukemia) ([facility]) Expected: 06/16/2021, Expires: 08/16/2021 [facility] Work Phone: Comment on above: Expected: 06/16/2021 , Expires: 08/16/2021 Start: 03-12-2021 ADVANCE DIRECTIVE DISCUSSION ADVANCE DIRECTIVE DISCUSSION [facility] Start: 03-12-2021 DEPRESSION ASSESSMENT DEPRESSION ASS ESSMENT [facility] Start: 03-01-2021 COVID-19 VACCINE (4 - Booster for Pfizer series) COVID-19 VACCINE (4 - Booster for Pfizer series) [facility] Start: 02-22-2021 COVID-19 VACCINE (4 - Booster for Pfizer series) COVID-19 VACCINE (4 - Booster for Pfizer series) [facility] Start: 01-30-2014 SHINGRIX VACCINE (1 of 2) TEJEDA GRIX VACCINE (1 of 2) [facility] Start: 01-30-2014 SHINGRIX VACCINE (2 of 3) TEJEDA GRIX VACCINE (2 of 3) [facility] Start: 1998 Hepatitis B Vaccine (1 of 3 - Risk 3-dose series) Hepatitis B Vaccine (1 of 3 - Risk 3-dose series) [facility] Start: 1998 RSV Vaccine (1 - 1-d ose 60+ series) RSV Vaccine (1 - 1-dose 60+ series) [facility] Start: 1948 Hepatitis B screening URINE AL BUMIN:CREATININE RATIO [facility] Start: 11-06-1945 Hemoglobin A1c/Hemoglobin.total in Blood HBA1C [facility] Basic metabolic 2008 panel with ionized calcium - Serum or Plasma [facility] End: 09-04-2023 CBC W Auto Differential panel - Blood CBC + DIFF Lab STAT CLL (chronic lymphocytic leukemia) (HCC) Anemia, unspecified type Every 3 months for 2 Occurrences starting 09/04/2022 until 09/04/2023 [facility] Work Phone: Comment on above: Every 3 months for 2 Occurrences starting 09/04/2022 until 09/04/2023 CBC W Auto Different ial panel - Blood 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) use of anticoagulants Ataxia Memory loss 1 Occurrences starting 06/17/2024 until 07/17/2025 [facility] Comment on above: 1 Occurrences starti ng 06/17/2024 until 07/17/2025 End: 10-09-2025 CT Head WO contrast CT BRAIN WO IVCON Radiology Routine Abnormal CT scan of head Memory loss 1 Occurrences starting 09/09/2024 until 10/09/2025 [facility] Comment on above: 1 Occurrences starti ng 09/09/2024 until 10/09/2025 End: 09-09-2025 EPIL EEG ROUTINE EPIL EEG ROUTINE NEUROLOGY Routine Memory loss 1 Occurrences starting 09/09/2024 until 09/09/2025 [facility] Work Phone: Comment on above: 1 Occurrences starti ng 09/09/2024 until 09/09/2025 End: 09-04-2023 Ferritin [Mass/volume] in Serum or Plasma FERRITIN BLD Lab Routine CLL (chronic lymphocytic leukemia) (HCC) Anemia, unspecified type Every 3 months for 2 Occurrences starting 09/04/2022 until 09/04/2023 [facility] Work Phone: Comment on above: Every 3 months for 2 Occurrences starting 09/04/2022 until 09/04/2023 End: 09-10-2025 HEARING TEST/AUDIOGRAM HEARING TEST/AUDIOGRAM Audiology Routine Abnormal CT scan of head 1 Occurrences starting 09/09/2024 until 09/10/2025 [facility] Comment on above: 1 Occurrences starti ng 09/09/2024 until 09/10/2025 End: 09-04-2023 Iron and Iron binding capacity panel - Serum or Plasma IRON + TIBC Lab Routine CLL (chronic lymphocytic leukemia) (HCC) Anemia, unspecified type Every 3 months for 2 Occurrences starting 09/04/2022 until 09/04/2023 [facility] Work Phone: Comment on above: Every 3 months for 2 Occurrences starting 09/04/2022 until 09/04/2023 Magnesium measurement [facility] Patient Education ED Lower GI Bl eeding (Stable) [facility] Work Phone: Patient referral [facility] Work Phone: End: 07-07-2023 PVR ANK PRESS OMER VAS LAB PVR ANK PRESS OMER VAS LAB Vascular Lab Routine PAD (peripheral artery disease) (HCC) 1 Occurrences starting 09/16/2021 until 09/15/2022 [facility] Work Phone: Comment on above: 1 Occurrences starti ng 09/16/2021 until 09/15/2022 End: 09-27-2022 PVR LEG OMER VAS LAB PVR LEG OMER VAS LAB Vascular Lab Routine PAD (peripheral artery disease) ([facility]) 1 Occurrences starting 09/27/2021 until 09/27/2022 [facility] Work Phone: Comment on above: 1 Occurrences starti ng 09/27/2021 until 09/27/2022 End: 06-14-2023 PVR LEG OMER VAS LAB PVR LEG OMER VAS LAB Vascular Lab Routine PAD (peripheral artery disease) ([facility]) 1 Occurrences starting 06/13/2022 until 06/14/2023 [facility] Work Phone: Comment on above: 1 Occurrences starti ng 06/13/2022 until 06/14/2023 T4 free measurement [facility] Thyroid stimulating hormone measurement [facility] End: 07-09-2024 US Carotid arteries - bilateral US CAROTID ARTERIES OMER VAS LAB Vascular Lab Routine Cerebrovascular accident (CVA), unspecified mechanism ([facility]) 1 Occurrences starting 07/10/2023 until 07/09/2024 [facility] Comment on above: 1 Occurrences starti ng 07/10/2023 until 07/09/2024 US LEG VEIN DVT UNL VAS LAB US LEG VEIN DVT UNL VAS LAB Vascular Lab STAT Edema, unspecified type 07/20/2021 11:32 AM EDT [facility] Work Phone: End: 07-09-2024 US Lower extremity artery - bilateral PVR LEG OMER VAS LAB Vascular Lab Routine PAD (peripheral artery disease) ([facility]) 1 Occurrences starting 07/10/2023 until 07/09/2024 [facility] Work Phone: Comment on above: 1 Occurrences starti ng 07/10/2023 until 07/09/2024 End: 07-08-2025 US Lower extremity artery - bilateral PVR LEG OMER VAS LAB Vascular Lab Routine PAD (peripheral artery disease) 1 Occurrences starting 07/08/2024 until 07/08/2025 [facility] Work Phone: Comment on above: 1 Occurrences starti ng 07/08/2024 until 07/08/2025 [facility] Immunizations Immunization Date Immunization Notes Care Provider [facility] 12-13-2023 influenza, high dose seasonal, preservative-free Zachary Kennedy MD Work Phone: [facility] 12-13-2023 influenza virus vaccine, unspecified formulation Jaja Gaona MD Work Phone: [facility] 07-28-2023 respiratory syncytia l virus (RSV) vaccine, adjuvanted (AREXVY) Zachary Kennedy MD Work Phone: [facility] 12-05-2022 influenza (HD-IIV4) vaccine, age 65+ yr, high dose, quadrivalent, PF (FLUZONE HIGH-DOSE) Zachary Kennedy MD Work Phone: [facility] 12-07-2021 COVID-19 booster vaccine, age 12+ yr, bivalent (PFIZER-BIONTECH) Mi Nurse Work Phone: [facility] Work Phone: 11-24-2021 Influenza, high dose seasonal Dr. Zachary Kennedy MD Work Phone: [facility] 11-24-2021 influenza, high dose seasonal, preservative-free Dr. Zachary Kennedy Work Phone: [facility] 11-24-2021 influenza, high-dose , quadrivalent vaccine (FLUZONE HIGH DOSE QUADRIVALENT) Zachary Kennedy MD Work Phone: [facility] 11-24-2021 influenza virus vaccine, unspecified formulation Stu Lloyd DO Work Phone: [facility] 10-26-2021 zoster vaccine recombinant Zachary Kennedy MD Work Phone: [facility] 07-27-2021 zoster vaccine recombinant Zachary Kennedy MD Work Phone: [facility] 06-23-2021 COVID-19 original vaccine, age 12+ yr, monovalent (PFIZER-BIONTECH - PEREZ TOP) Stu Lloyd DO Work Phone: [facility] Work Phone: 11-30-2020 COVID-19 vaccine, ag e 12+ yr (PFIZER-BIONTECH - PURPLE TOP) Marixa Medina MD Work Phone: [facility] 11-18-2020 influenza nasal, unspecified formulation Zachary Kennedy MD Work Phone: [facility] 11-18-2020 influenza virus vaccine, unspecified formulation Zachary Kennedy MD Work Phone: [facility] 11-18-2020 influenza, seasonal, injectable Marixa Medina MD Work Phone: [facility] 06-21-2020 tetanus toxoid, redu camilo diphtheria toxoid, and acellular pertussis vaccine, adsorbed Marixa Medina MD Work Phone: [facility] Work Phone: 04-23-2020 SARS-CoV-2 mRNA (tozinameran) vaccine DENISE HERNANDES MD [facility] 04-06-2020 SARS-CoV-2 mRNA (tozinameran) vaccine DENISE HERNANDES MD [facility] 12-25-2019 influenza (aIIV4) vaccine, age 65+ yr, quadrivalent, PF (FLUAD QUADRIVALENT) Marixa Medina MD Work Phone: [facility] Work Phone: 12-25-2019 influenza nasal, unspecified formulation Zachary Kennedy MD Work Phone: [facility] 12-25-2019 influenza virus vaccine, unspecified formulation DENISE HERNANDES MD [facility] 12-11-2019 influenza nasal, unspecified formulation Zachary Kennedy MD Work Phone: [facility] 12-11-2019 influenza virus vaccine, unspecified formulation Zachary Kennedy MD Work Phone: [facility] 12-24-2018 AS03 adjuvant Zachary Melendez Work Phone: [facility] 12-24-2018 influenza nasal, unspecified formulation Zachary Kennedy MD Work Phone: [facility] 12-24-2018 influenza virus vaccine, unspecified formulation DENISE HERNANDES MD [facility] 12-24-2018 Seasonal trivalent influenza vaccine, adjuvanted, preservative free Marixa Medina MD Work Phone: [facility] Work Phone: 12-10-2018 influenza, injectabl e, quadrivalent, preservative free Zachary Kennedy MD Work Phone: [facility] 12-10-2017 influenza nasal, unspecified formulation Zachary Kennedy MD Work Phone: [facility] 12-10-2017 influenza virus vaccine, unspecified formulation Zachary Kennedy MD Work Phone: [facility] 12-05-2017 influenza virus vaccine, unspecified formulation DENISE HERNANDES MD [facility] 12-05-2017 influenza, high dose seasonal, preservative-free Marixa Medina MD Work Phone: [facility] 02-12-2017 pneumococcal polysaccharide vaccine, 23 valent Marixa Medina MD Work Phone: [facility] Work Phone: 12-19-2016 influenza virus vaccine, unspecified formulation DENISE HERNANDES MD [facility] 12-19-2016 influenza nasal, unspecified formulation Marixa Medina MD Work Phone: [facility] Work Phone: 12-25-2015 influenza virus vaccine, unspecified formulation DENISE HERNANDES MD [facility] 12-25-2015 influenza, injectabl e, quadrivalent, preservative free Marixa Medina MD Work Phone: [facility] Work Phone: 12-23-2015 influenza virus vaccine, unspecified formulation DENISE HERNANDES MD [facility] 12-23-2015 influenza nasal, unspecified formulation Marixa Medina MD Work Phone: [facility] Work Phone: 12-11-2015 influenza nasal, unspecified formulation Zachary Kennedy MD Work Phone: [facility] 12-11-2015 influenza virus vaccine, unspecified formulation Zachary Kennedy MD Work Phone: [facility] 12-24-2014 influenza virus vaccine, unspecified formulation DENISE HERNANDES MD [facility] 12-24-2014 influenza nasal, unspecified formulation Marixa Medina MD Work Phone: [facility] Work Phone: 12-24-2014 influenza, injectabl e, quadrivalent, preservative free Zachary Kennedy MD Work Phone: [facility] 06-03-2014 influenza nasal, unspecified formulation Zachary Kennedy MD Work Phone: [facility] 06-03-2014 influenza virus vaccine, unspecified formulation DENISE HERNANDES MD [facility] 06-03-2014 influenza, seasonal, injectable Marixa Medina MD Work Phone: [facility] Work Phone: 06-03-2014 pneumococcal conjuga te vaccine, 13 valent DENISE HERNANDES MD [facility] 12-25-2013 influenza nasal, unspecified formulation Zachary Kennedy MD Work Phone: [facility] 12-25-2013 influenza virus vaccine, unspecified formulation DENISE HERNANDES MD [facility] 12-25-2013 influenza, seasonal, injectable Marixa Medina MD Work Phone: [facility] Work Phone: 12-05-2013 zoster vaccine, live DENISE HERNANDES MD [facility] 11-11-2011 influenza nasal, unspecified formulation Zachary Kennedy MD Work Phone: [facility] 11-11-2011 influenza virus vaccine, unspecified formulation Zachary Kennedy MD Work Phone: [facility] 12-10-2010 influenza nasal, unspecified formulation Zachary Kennedy MD Work Phone: [facility] 12-10-2010 influenza virus vaccine, unspecified formulation Zachary Kennedy MD Work Phone: [facility] 12-10-2009 influenza nasal, unspecified formulation Zachary Kennedy MD Work Phone: [facility] 12-10-2009 influenza virus vaccine, unspecified formulation Zacahry Kennedy MD Work Phone: [facility] 12-19-2008 influenza nasal, unspecified formulation Zachary Kennedy MD Work Phone: [facility] 12-19-2008 influenza virus vaccine, unspecified formulation Zachary Kennedy MD Work Phone: [facility] 12-18-2005 pneumococcal polysaccharide vaccine, 23 valent Zachary Kennedy MD Work Phone: [facility] 12-18-2005 pneumococcal vaccine , unspecified formulation Zachary Kennedy MD Work Phone: [facility] 03-12-1968 tetanus and diphther ia toxoids, adsorbed, preservative free, for adult use (2 Lf of tetanus toxoid and 2 Lf of diphtheria toxoid) Zachary Kennedy MD Work Phone: [facility] Payers Date Payer Category Payer Self-pay [id number] 2014 Medicare (Managed Care) PRIMETIM E [id number] 2010 Unknown PRIMETIME PRIMET JENNY HMO POS [id number] 2010-Present [phone] [address] [place] [address] [facility] [id number] 2010 Unknown [id number] 2009 Unknown [id number] 1938 Unknown [id number] 1938 Unknown [id number] 1938 Unknown [id number] Unknown [id number] Unknown [id number] Unknown [id number] Unknown [id number] Unknown [id number] Unknown [id number] Social History Date Type Detail Facility Start: 08-18-2019 End: 12-14-2022 Tobacco smoking status Never smoked tobacco (finding) [facility] Start: 1940 Sex Assigned At Male [facility] Start: 12-13-2020 End: 09-23-2024 Alcohol intake Current non-drinker of alcohol (finding) [facility] Start: 07-23-2021 End: 12-12-2021 Exposure to SARS-CoV-2 (event) Not sure [facility] Work Phone: Start: 08-07-2022 End: 08-07-2022 Tobacco smoking status NHIS Unknown if ever smoked [facility] Start: 07-19-2022 End: 08-15-2022 History of Social function [facility] Work Phone: Start: 07-19-2022 End: 08-15-2022 Tobacco use panel [facility] Work Phone: Adult Depression Screening Assessment 0 [facility] Work Phone: Start: 08-11-2020 Gender identity Identifies as male gender (finding) [facility] Start: 08-11-2020 Sexual orientation Heterosexual (shawn ashton) [facility] Medical Equipment Procedure Code Equipment Code Equipment Origin al Text Equipment Identifier Dates See Instructions , [id number] Lancets. 1 daily. box of 100 for 90days with 3 refills, [id number] Diabetes with hyperglycemia, # 100 EA, 3 Refill(s), Pharmacy: [facility], Controlled diabetes mellitus, 182.9, cm, 07/12/20 10:42:00 EDT, Height, 85.55, kg, 05/0... Start: 07-27-2020 See Instructions , 1 STRIP DAILY box of 100 FOR 90 DAYS AND 3 REFILLS, E11.65 Diabetes with Hyperglycemia, # 100 EA, 3 Refill(s), Pharmacy: [facility], Controlled diabetes mellitus, 182.9, cm, 07/12/20 10:42:00 EDT, Height, 85.55, kg, 07/12/20 10:... Start: 07-27-2020 See Instructions , 31G Lancets. 1 daily. box of 100 for 90days with 3 refills, E11.65 Diabetes with hyperglycemia, # 100 EA, 3 Refill(s), Pharmacy: [facility], Controlled diabetes mellitus, 182.9, cm, 07/12/20 10:42:00 EDT, Height, 85.55, kg, 05/0... Start: 07-27-2020 See Instructions , 1 STRIP DAILY box of 100 FOR 90 DAYS AND 3 REFILLS, E11.65 Diabetes with Hyperglycemia, # 100 EA, 3 Refill(s), Pharmacy: [facility], Controlled diabetes mellitus, 182.9, cm, 07/12/20 10:42:00 EDT, Height, 85.55, kg, 07/12/20 10:... Start: 07-27-2020 Test blood sugar(s) 1 times daily. Dx: Type 2 DM - Controlled E11.9 Insulin: No [id number], [id number] Start: 07-23-2020 Comment on above: Test blood sugar(s) 1 times daily. Dx: Type 2 DM - Controlled E11.9 Insulin: No See Instructions , 31G Lancets. 1 daily. box of 100 for 90days with 3 refills, E11.65 Diabetes with hyperglycemia, # 100 EA, 3 Refill(s), [id number], Controlled diabetes mellitus, 180, cm, 06/16/21 15:26:00 EDT, Height, 83.5, kg, 04/0... Start: 06-16-2021 See Instructions , 1 STRIP DAILY box of 100 FOR 90 DAYS AND 3 REFILLS, E11.65 Diabetes with Hyperglycemia, # 100 EA, 3 Refill(s), [facility], Controlled diabetes mellitus, 180, cm, 06/16/21 15:26:00 EDT, Height, 83.5, kg, 06/16/21 15:... Start: 06-16-2021 See Instructions , 31G Lancets. 1 daily. box of 100 for 90days with 3 refills, E11.65 Diabetes with hyperglycemia, # 100 EA, 3 Refill(s), [id number], Controlled diabetes mellitus, 180, cm, 06/16/21 15:26:00 EDT, Height, 83.5, kg, 04/0... Start: 06-16-2021 See Instructions , 1 STRIP DAILY box of 100 FOR 90 DAYS AND 3 REFILLS, E11.65 Diabetes with Hyperglycemia, # 100 EA, 3 Refill(s), [id number], Controlled diabetes mellitus, 180, cm, 06/16/21 15:26:00 EDT, Height, 83.5, kg, 06/16/21 15:... Start: 06-16-2021 See Instructions , 31G Lancets. 1 daily. box of 100 for 90days with 3 refills, E11.65 Diabetes with hyperglycemia, # 100 EA, 3 Refill(s), [id number], Controlled diabetes mellitus, 180, cm, 06/16/21 15:26:00 EDT, Height, 83.5, kg, 04/0... Start: 06-16-2021 See Instructions , 1 STRIP DAILY box of 100 FOR 90 DAYS AND 3 REFILLS, E11.65 Diabetes with Hyperglycemia, # 100 EA, 3 Refill(s), Pharmacy: [facility]/pharmacy #[id number], Controlled diabetes mellitus, 180, cm, 06/16/21 15:26:00 EDT, Height, 83.5, kg, 06/16/21 15:... Start: 06-16-2021 See Instructions , 31G Lancets. 1 daily. box of 100 for 90days with 3 refills, E11.65 Diabetes with hyperglycemia, # 100 EA, 3 Refill(s), Pharmacy: [facility]/pharmacy #[id number], Controlled diabetes mellitus, 180, cm, 06/16/21 15:26:00 EDT, Height, 83.5, kg, 040... Start: 06-16-2021 See Instructions , 1 STRIP DAILY box of 100 FOR 90 DAYS AND 3 REFILLS, E11.65 Diabetes with Hyperglycemia, # 100 EA, 3 Refill(s), Pharmacy: [facility]/pharmacy #[id number], Controlled diabetes mellitus, 180, cm, 06/16/21 15:26:00 EDT, Height, 83.5, kg, 06/16/21 15:... Start: 06-16-2021 See Instructions , 31G Lancets. 1 daily. box of 100 for 90days with 3 refills, E11.65 Diabetes with hyperglycemia, # 100 EA, 3 Refill(s), Pharmacy: [facility]/pharmacy #[id number], Controlled diabetes mellitus, 180, cm, 06/16/21 15:26:00 EDT, Height, 83.5, kg, 06/16/21 15:26:00 EDT, Dosing Weight Start: 06-16-2021 See Instructions , 1 STRIP DAILY box of 100 FOR 90 DAYS AND 3 REFILLS, E11.65 Diabetes with Hyperglycemia, # 100 EA, 3 Refill(s), Pharmacy: [facility]/pharmacy #[id number], Controlled diabetes mellitus, 180, cm, 06/16/21 15:26:00 EDT, Height, 83.5, kg, 06/16/21 15:26:00 EDT, Dosing Weight Start: 06-16-2021 Goals Date Patient Goal Desired Activity /State Personal health goal Functional Status Date Assessment Result Facility 08-11-2022 Functional status [facility] Work Phone: 09-23-2014 Are you deaf, or do you have serious difficulty hearing Yes 09/23/2014 10:08 AM Beulah Somers LPN Yes [facility] 09-23-2014 Are you blind, or do you have serious difficulty seeing, even when wearing glasses No 09/23/2014 10:08 AM Beulah Somers LPN No [facility] 09-23-2014 Do you have serious difficulty walking or climbing stairs No 09/23/2014 10:08 AM Beulah Somers LPN No [facility] 09-23-2014 Do you have difficul ty dressing or bathing No 09/23/2014 10:08 AM Beulah Somers LPN No [facility] 09-23-2014 Because of a physica l, mental, or emotional condition, do you have difficulty doing errands alone such as visiting a physician's office or shopping No 09/23/2014 10:08 AM Beulah Somers LPN No [facility] Mental Status Date Assessment Result Facility 08-11-2022 Cognitive function Voice/Name;To [facility] Work Phone: 09-23-2014 Because of a physica l, mental, or emotional condition, do you have serious difficulty concentrating, remembering, or making decisions No 09/23/2014 10:08 AM Beulah Somers LPN No [facility] Clinical Notes 04-18-2011 to 10-23-2024 Note Date & Type Note Facility 10-23-2024 Progress note [facility] 10-23-2024 Progress note Note Date/Time October 23, 2024 1:39pm [facility] [address] [place] [address]. [address] [place], [place] [address] OFFICE VISIT Date of Service: 10/23/24 MR#: [id number] Acct: [id number] Name: RONNIE LEE Rep #: [id number] : 1940 Provider: YESSENIA Murillo Age/Sex: 83/M Location: [facility] [place] Status: Signed HPI HPI History of Present Illness Details: 83-year-old man who is here for a follow-up visit he is a gentleman with a history of hypertension, hyperlipidemia, paroxysmal atrial fibrillation, coronary artery disease status post coronary artery bypass surgery in 1997 with a JACOBSON to the LAD. He is also status post PCI with a drug-eluting stent to the circumflex artery in 2002. In 2010, he presented again and underwent drug-eluting stent placed to the right coronary artery as well as a drug-elutingstent to the in-stent stenotic lesion in the left circumflex artery. In 2010, he had an ICD placed for ischemic cardiomyopathy. He had a generator change forthe above in September 2017. His echocardiogram which was performed in 2018 demonstrated moderate diffuse hypokinesis with an estimated ejection fraction of30 to 35%. He has been diagnosed with chronic lymphocytic leukemia for which hehas been on ibrutinib. He has also been on Eliquis and Plavix. We did discontinue his carvedilol and he was started on sotalol and he has done quite well. His defibrillator was interrogated during today's visit. He denies chest, arm, jaw, or neck discomfort. He denies palpitations. He denies bilateral lower extremity edema. He denies claudication. He denies shortness of breath with activity, shortness of breath at rest, orthopnea, or PND. He denies chronic cough. He denies significant, sudden weight gain. He denies lightheadedness, dizziness, near-syncope, or syncope. He denies blood inurine, blood in stool, or epistaxis. He denies fever with chills. He denies myalgia. He denies fatigue. His exercise level has remained stable. 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 Accompanied by: Is patient in pain?: No Allergies iodine Allergy (Severe, Verified 10/23/24 13:06) Anaphylaxis oxycodone Allergy (Intermediate, Verified 10/23/24 13:06) dizziness Food Allergies: Uncoded Allergy (Mild, Verified 10/23/24 13:06) HEADACHE codeine Adverse Reaction (Intermediate, Verified 10/23/24 13:06) Low BP promethazine Adverse Reaction (Intermediate, Verified 10/23/24 13:06) Low BP metformin (From Avandamet) Adverse Reaction (Unknown, Verified 10/23/24 13:06) Patient refuses rosiglitazone (From Avandamet) Adverse Reaction (Unknown, Verified 10/23/24 13:06) Patient refuses Medications ?Medication ?Instructions ?Recorded ?Confirmed ?Type apixaban 5 mg tablet (Eliquis) 5 mg PO BID blood thinn er 08/29/21 10/23/24 History coenzyme Q10 400 mg capsule (Co 400 mg PO DAILY supple ment 08/29/21 10/23/24 History Q-10) cyanocobalamin (vitamin B-12) 1,000 mcg PO DAILY vitam in 08/29/21 10/23/24 History 1,000 mcg tablet pantoprazole 40 mg tablet,delayed 40 mg PO DAILY reflu x 08/29/21 10/23/24 History release vitamin B complex 1 tab PO DAILY vitamin 08/2910/23/24 History losartan 50 mg tablet 50 mg PO DAILY #90 TABLETS 0 07/27/23 10/23/24 Rx rosuvastatin 5 mg tablet 5 mg PO QDAY 09/18/23 History sitagliptin phosphate 50 1 tab PO QDAY 09/18/2310/23 History mg-metformin 1,000 mg tablet (Janumet) sotalol 120 mg tablet 120 mg PO BID #180 tabs 07/0 12/0310/23/24 Rx turmeric PO 12/13/23 10/23/24 History clopidogrel 75 mg tablet 75 mg PO DAILY #90 tabs 12/0 05/0510/23/24 Rx empagliflozin 25 mg tablet 25 mg PO QAM 10/23/2410/23 History (Jardiance) Ejection fraction %: 30 (30-35) Have you fallen in the past year?: Yes (Foot got caught in the weeds) PFSH Medical History CVA (cerebral vascular accident) Blood disorder Bleeding tendency Diabetes High cholesterol History of stress test Pacemaker Heart attack GI bleed Peripheral vascular occlusive disease Hyperlipidemia History of TN (myocardial infarction) GERD (gastroesophageal reflux disease) Essential hypertension Ischemic cardiomyopathy CLL (chronic lymphocytic leukemia) Type 2 diabetes mellitus without complication Paroxysmal atrial fibrillation Combined systolic and diastolic congestive heart failure, NYHA class 2 Atherosclerosis of coronary artery of [place] heart without angina pectoris Surgical History History of heart artery stent Status post cardiac surgery H/O cardiac catheterization S/P internal cardiac defibrillator procedure History of hip replacement History of coronary artery stent placement History of coronary artery bypass surgery (1997) Presence of implantable cardioverter-defibrillator (ICD) (10/04/17) History of bilateral cataract extraction Family History Father Heart disease Mother Cancer Sister Diabetes Social History Smoking Status: Never smoker alcohol intake: never substance use type: does not use ROS Const Const: Negative for fatigue or weakness Eyes Eyes: Negative for change in vision ENT ENT: Negative for dizziness or balance problems Cardio Chest Pain: No Palpitations: No Edema: None Muscle aches with walking: None Resp Respiratory: Negative for SOB with activity, SOB at rest or SOB orthopnea\SOB lying down GI GI: Negative nausea or heartburn : Negative for hematuria or frequent nighttime urination/ nocturia Musc Musc: Negative for balance problems Skin Skin: Negative non-healing lesions or rash Neuro Neuro: Negative for dizziness, lightheadedness, near syncope, syncope or weakness Endo Endo: Negative for fatigue Allergy Allergy/Immunology: Negative for rash Cardiology Exam Const Appearance: cooperative, healthy appearing, comfortable and no acute distress Nutritional Appearance: average body habitus and well nourished Orientation: alert, awake and oriented x3 Head Head: normal to inspection Ears: hearing grossly normal bilaterally Nose: external nose normal Face and Sinus: face symmetric Mouth: moist mucous membranes Eyes General: appearance normal, both eyes and all related structures Eyelids: eyelids normal EOM: EOM intact bilaterally Neck Neck: normal visual inspection and no JVD Carotids: normal carotid upstroke Chest Chest inspection: normal inspection of the chest, symmetric chest movement and normal respiratory effort; Negative cough Auscultation: Bilateral: Clear to Auscultation Cardio Rate: regular rate Rhythm: regular rhythm Heart sounds: S1 normal and S2 normal; Negative rub, gallop or murmur GI GI: normal to inspection Neuro General: patient alert, patient awake, patient oriented x3 and CN's II-XI intactbilaterally Skin Skin: no rashes or lesions noted Extremities Pulses: Normal: Right Posterior Tibial Pulse, Left Posterior Tibial Pulse, RightRadial Pulse and Left Radial Pulse Lower Extremity Edema: None: Left and Trace: Right Psych Psychological: normal affect Supplemental Info Supplemental Information Echocardiogram 12/31/2022 ([place], [place]) Summary 1. Contrast administered improved wall motion interpretation. 2. Left ventricular ejection fraction is moderately reduced, estimated at 30 to35%. 3. The left ventricular diastolic function is abnormal with grade 1 diastolic dysfunction. 4. Right ventricular systolic function is reduced. 5. Left atrial chamber dimension is normal. 6. Right atrial chamber dimension is normal. 7. There is trace mitral valve regurgitation. 8. There is trace tricuspid valve regurgitation. 9. There is no pericardial effusion. Assessment and Plan Assessment and Plan (1) History of coronary artery stent placement: Status: Chronic Comment: PCI-CHANTE-Mid and Ostial LCx w/ Promus stents 04/2002; OFI-WMQ-Xssn and Mid RCA 2003; CHANTE-ISR-Mid LCx w/ 2.5 x 18 mm Promus Stent and CHANTE-Ostium LCx w/ 2.75 x 18 mm Promus Stent 03/2010 Plan: He does have a history of coronary artery disease status post angioplasty and stenting. He has been bypassed after that. This appears stable. We will continue to monitor and not make any medication regimen changes. We will continue to promote risk factor and lifestyle modification. (2) History of coronary artery bypass surgery: Status: Chronic Comment: CABG x 2 Sequential JACOBSON to LAD and D1 1997 Plan: This appears stable. We will continue to monitor and not make any medication regimen changes. We will continue to promote risk factor and lifestyle modification. (3) Ischemic cardiomyopathy: Status: Chronic Plan: Ischemic cardiomyopathy: Echocardiogram 12/31/2022?EF: 30 to 35%, 11/02/2017-EF: 30-35% Twelve-lead EC10/23/2024?atrial paced rhythm at 72 bpm Preventative ICD in place [employer] Functional Class: 1 ACC/AHA stage: C Guideline Directed Medical Therapy: Losartan 50 mg p.o. daily Jardiance 25 mg p.o. daily He appears to be a euvolemic state on exam. We we will continue to monitor. Wediscussed the role of guideline directed medical therapy and opted not to add additional medications as he is stable and has low normal blood pressure. (4) Presence of implantable cardioverter-defibrillator (ICD): Status: Chronic Comment: Initially 2010, gen change 2018 [employer] Plan: Device report on 10/15/2024 showed 0 atrial high rate episodes, 0 nonsustained ventricular tachycardia episodes, RA pacing 96.24%, RV pacing 0.05%, and batterylife 2 years and 6 months. Patient's device appears to be functioning appropriately. We will continue to monitor this with routine/scheduled follow-ups. (5) Essential hypertension: Status: Chronic Plan: Patient's blood pressure is well-controlled. We will continue to monitor. We will not make any medication regimen changes. (6) Hyperlipidemia: Status: Chronic Qualifiers: Hyperlipidemia type: mixed hyperlipidemia Qualified Code(s): E78.2 - Mixed hyperlipidemia Plan: The importance of LDL control was discussed with him. At this time, continue risk factor and lifestyle modification. Depending on repeat laboratory test results further recommendation will be made bearing in mind LDL goal of 70 and below for secondary prevention. (7) Paroxysmal atrial fibrillation: Status: Chronic Plan: He will continue sotalol for rate and rhythm control. He will continue Eliquis for CVA protection. We will continue to monitor. He undergo chemistry evaluation to ensure stable with sotalol therapy. (8) Fatigue: Status: Acute Plan: This is his 's main concern. This is thought to be multifactorial includingnoncardiac issues. To assess further, his vascular laboratory testing to reassess anemia as well as thyroid component. He is encouraged to follow with primary care provider for general strengthening and possibly physical therapy. Orders: Orders Basic Metabolic Profile (BMP) Today I25.5 - Ischemic cardiomyopathy, Z95.1 - Presence of aortocoronary bypass graft, Z95.5 - Presence of coronary angioplastyimplant and graft, Z95.810 - Presence of automatic (implantable) cardiac defibrillator Thyroid Stim Hormone (TSH) Today I25.5 - Ischemic cardiomyopathy, R53.83 - Other fatigue, Z95.1 - Presence of aortocoronary bypass graft, Z95.5 - Presence of coronary angioplasty implant and graft, Z95.810 - Presence of automatic (implantable) cardiac defibrillator Free T4 Today I25.5 - Ischemic cardiomyopathy, R53.83 - Other fatigue, Z95.1 - Presence of aortocoronary bypass graft, Z95.5 - Presence of coronary angioplastyimplant and graft, Z95.810 - Presence of automatic (implantable) cardiac defibrillator CBC W/Diff, Automated Today I25.5 - Ischemic cardiomyopathy, R53.83 - Other fatigue, Z95.1 - Presence of aortocoronary bypass graft, Z95.5 - Presence of coronary angioplasty implant and graft, Z95.810 - Presence of automatic (implantable) cardiac defibrillator 12 Lead EKG performed by BMS Today I25.5 - Ischemic cardiomyopathy, Z51.81 - Encounter for therapeutic drug level monitoring, Z79.899 - Other group home (current) drug therapy, Z95.1 - Presence of aortocoronary bypass graft, Z95.5 - Presence of coronary angioplasty implant and graft, Z95.810 - Presence of automatic (implantable) cardiac defibrillator Magnesium Today I25.5 - Ischemic cardiomyopathy, R53.83 - Other fatigue, Z95.5 - Presence of coronary angioplasty implant and graft, Z95.810 - Presence of automatic (implantable) cardiac defibrillator Plan Details Additional Comments: Thank you for allowing us to participate in the patients plan of care, if you have any questions please do not hesitate to call. Plan was reviewed with patient/family member along with red flag symptoms. Understanding was acknowledged. Questions were answered to apparent satisfaction. This note was generated using a voice recognition system and there may be incorrect words, spelling or punctuation that were not noted when reviewing the office note prior to saving. Portions of this documentation were copied and pasted from previous office visitnotes to provide a cohesive continuity of the history. The note has been reviewed, edited, and updated, as necessary. Follow Up: 12-15 Months (OUTSIDE INSTALLER APPRENTICE) 7-8 Months (EAR MUFF ASSEMBLER/PA) Coding Level of Care Code Off vis,est,level 4 Diagnoses History of coronary artery stent placement Z95.5 History of coronary artery bypass surgery Z95.1 Ischemic cardiomyopathy I25.5 Presence of implantable cardioverter-defibrillator (ICD) Z95.810 Essential hypertension I10 Mixed hyperlipidemia E78.2 Hyperlipidemia type: mixed hyperlipidemia Paroxysmal atrial fibrillation I48.0 Fatigue R53.83 Coding Level of Care Code Off vis,est,level 4 Diagnoses History of coronary artery stent placement Z95.5 History of coronary artery bypass surgery Z95.1 Ischemic cardiomyopathy I25.5 Presence of implantable cardioverter-defibrillator (ICD) Z95.810 Essential hypertension I10 Mixed hyperlipidemia E78.2 Hyperlipidemia type: mixed hyperlipidemia Paroxysmal atrial fibrillation I48.0 Fatigue R53.83 Clinical Quality Measures Falls Risk Screening/Assistive Devices Have you fallen in the past year?: Yes (Foot got caught in the weeds) Cardiac Ejection fraction %: 30 (30-35) 10/23/24 1339 <Electronically signed by Nathaniel Murillo N P EAR MUFF ASSEMBLER-C> Date _ Nathaniel Murillo NP EAR MUFF ASSEMBLER-C Cosigner Signature: Date (if applicable) CC: Dr. Zachary Kennedy MD ~ [facility] [employer] Work Phone: [phone]) 973-618307-29-2025 Telephone encounter Note* Telephone Encounter - Brian Chanel RN - 10/07/2024 1:31 PM EDT phoned for results and given provider's message below with verbalized understanding. agreeable. [facility]07-29-2025 Miscellaneous Notes* Telephone Encounter - Brian Chanel RN - 10/07/2024 1:31 PM EDT phoned for results and given provider's message below with verbalized understanding. agreeable. * Telephone Encounter - Ya Morel APRN.ERIC - 10/07/2024 1:26 PM EDT Images from the original note were not included. There was a result note in on 09/26. * Telephone Encounter - Mariam Garcia LPN - 10/02/2024 3:00 PM EDT Patient Marisol returned call for lab results, due to very hard of hearing. No results note for nurse to go over with the patient . Please advise Latest Ref Rng 09/23/2024 WBC 3.70 - 11.00 k/uL 14.65 (H) RBC 4.20 - 6.00 m/uL 5.16 Hemoglobin 13.0 - 17.0 g/dL 14.4 Hematocrit 39.0 - 51.0 % 43.2 MCV 80.0 - 100.0 fL 83.7 MCH 26.0 - 34.0 pg 27.9 MCHC 30.5 - 36.0 g/dL 33.3 RDW-CV 11.5 - 15.0 % 13.5 Platelet Count 150 - 400 k/uL 180 MPV 9.0 - 12.7 fL 11.4 NRBC /100 WBC 0.0 Absolute nRBC <0.01 k/uL <0.01 Neut% % 50.0 Abs Neut (ANC) 1.45 - 7.50 k/uL 7.33 Lymph% % 44.8 Abs Lymph 1.00 - 4.00 k/uL 6.56 (H) Lander% % 5.2 Abs Lander <0.87 k/uL 0.76 Eosin% % 0.0 Abs Eosin <0.46 k/uL 0.00 Baso% % 0.0 Abs Baso <0.11 k/uL 0.00 Platelet Estimate Adequate Red Cell Morph Reviewed: see results of individual morphologies Ovalocytes Few DTYPE Manual Hemoglobin A1C 4.3 - 5.6 % 10.7 (H) Estimated Average Glucose mg/dL 260 Legend: (H) High documented in [facility] encounter[facility] Telephone encounter Note * Telephone Encounter - Ya Morel APRN.CNP - 10/07/2024 1:26 PM EDT Images from the original note were not included. There was a result note in on 09/26. [facility]07-24-2025 Telephone encounter Note* Telephone Encounter - Mariam Garcia LPN - 10/02/2024 3:00 PM EDT Patient Marisol returned call for lab results, due to very hard of hearing. No results note for nurse to go over with the patient . Please advise Latest Ref Rng 09/23/2024 WBC 3.70 - 11.00 k/uL 14.65 (H) RBC 4.20 - 6.00 m/uL 5.16 Hemoglobin 13.0 - 17.0 g/dL 14.4 Hematocrit 39.0 - 51.0 % 43.2 MCV 80.0 - 100.0 fL 83.7 MCH 26.0 - 34.0 pg 27.9 MCHC 30.5 - 36.0 g/dL 33.3 RDW-CV 11.5 - 15.0 % 13.5 Platelet Count 150 - 400 k/uL 180 MPV 9.0 - 12.7 fL 11.4 NRBC /100 WBC 0.0 Absolute nRBC <0.01 k/uL <0.01 Neut% % 50.0 Abs Neut (ANC) 1.45 - 7.50 k/uL 7.33 Lymph% % 44.8 Abs Lymph 1.00 - 4.00 k/uL 6.56 (H) Lander% % 5.2 Abs Lander <0.87 k/uL 0.76 Eosin% % 0.0 Abs Eosin <0.46 k/uL 0.00 Baso% % 0.0 Abs Baso <0.11 k/uL 0.00 Platelet Estimate Adequate Red Cell Morph Reviewed: see results of individual morphologies Ovalocytes Few DTYPE Manual Hemoglobin A1C 4.3 - 5.6 % 10.7 (H) Estimated Average Glucose mg/dL 260 Legend: (H) High [facility]07-18-2025 Telephone encounter Note* Telephone Encounter - Escobar Thomas LPN - 09/26/2024 4:24 PM EDT LM to return call to office. Escobar Thomas LPN [facility]07-18-2025 Miscellaneous Notes* Telephone Encounter - Escobar Thomas LPN - 09/26/2024 4:24 PM EDT LM to return call to office. Escobar Thomas LPN * Telephone Encounter - Ya Morel APRN.CNP - 09/26/2024 4:02 PM EDT Can please let patient know that I received his lab results. His A1C went up. Lets increase the jardiance to 25 mg daily. I sent a new prescription to the pharmacy. Can we please confirm if he is still taking the janumet? (He should be). He will need repeat labs in 3 months -- fasting. The orders are in. Ya Morel APRN.CNP documented in this encounterOur [facility]07-[facility]-2025 Telephone encounter Note * Telephone Encounter - Ya Morel APRN.CNP - 09/26/2024 4:02 PM EDT Can please let patient know that I received his lab results. His A1C went up. Lets increase the jardiance to 25 mg daily. I sent a new prescription to the pharmacy. Can we please confirm if he is still taking the janumet? (He should be). He will need repeat labs in 3 months -- fasting. The orders are in. Ya Morel APRN.CNP [facility]07-15-2025 History of Present illness Narrative* Eva Plata RT(R) - 09/23/2024 3:20 PM EDT Radiology Service Progress Note PATIENT NAME: Ronnie Lee DATE OF SERVICE: September 23, 2024 TIME: 3:34 PM PATIENT IDENTITY VERIFICATION COMPLETED USING TWO (2) IDENTIFIERS: Name and Date of confirmedby patient verbally. FALL SCREENING: Has the patient had 2 falls in the last year or 1 fall with injury or currently using an Ambulatory Assistive Device (Walker, Cane, Wheelchair, Crutches, etc.)? No PATIENT GENDER DATA: Assigned male at PATIENT RELEVANT IMPLANT DATA REVIEWED: Yes PATIENT PRESENTS WITH AN IMPLANTABLE OR ATTACHED MIRROR MACHINE FEEDER: No RADIOLOGY DEPARTMENT: CT; Exam(s) Completed: Brain PERIPHERAL IV DATA: Not applicable SIGNED BY: KATHY Ramírez) September 23, 2024 3:34 PM documented in this encounterOur [facility]07-15-2025 NoteHNO ID: [id number] Author: EVA PLATA RT(R) Service: ? Author Type: Deputy Chief Executive Type: Progress Notes Filed: 09/23/2024 15:34 Note Text: Radiology Service Progress Note PATIENT NAME: Ronnie Lee DATE OF SERVICE: September 23, 2024 TIME: 3:34 PM PATIENT IDENTITY VERIFICATION COMPLETED USING TWO (2) IDENTIFIERS: Name and Date of confirmed by patient verbally. FALL SCREENING: Has the patient had 2 falls in the last year or 1 fall with injury or currently using an Ambulatory Assistive Device (Walker, Cane, Wheelchair, Crutches, etc.)? No PATIENT GENDER DATA: Assigned male at PATIENT RELEVANT IMPLANT DATA REVIEWED: Yes PATIENT PRESENTS WITH AN IMPLANTABLE OR ATTACHED MIRROR MACHINE FEEDER: No RADIOLOGY DEPARTMENT: CT; Exam(s) Completed: Brain PERIPHERAL IV DATA: Not applicable SIGNED BY: RT Darrell(Man) September 23, 2024 3:34 [facility]07-15-2025 NoteHNO ID: [id number] Author: YA MOREL APRN.HEATING AND BLENDING SUPERVISOR Service: ? Author Type: Nurse Practitioner Type: Progress Notes Filed: 09/23/2024 13:41 Note Text: This is a 83 year old male who presents today with: Ed Luigi Lee is an 83-year-old male with a history of diabetes mellitus, presenting for a follow-up visit. HISTORY OF PRESENT ILLNESS: Diabetes Mellitus: - Recently started on Jardiance; Ed reports no issues with the medication. - Not taking Janumet. - Denies symptoms of hypoglycemia. - does not check home sugars. - Not following a specific diet. - Reports normal urination. HTN: - Denies chest pain, palpitations, dyspnea, or peripheral edema. 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 Hyperlipidemia Impacted cerumen TN (myocardial infarction) (FORM[facility]LY [facility]) '93, '98, '03, '04 Pneumonia 03/08/2011 PAST SURGICAL HISTORY Procedure Laterality Date ANGIOPLASTY 02/2004 with stents ARTHRP ACETBLR/PROX FEM PROSTC AGRFT/ALGRFT Right CABG (2) VEIN GRAFTS AND ARTERIAL GRAFT(S 09/09/1997 COLONOSCOPY 07/26/2022 COLONOSCOPY SCREENING 08/09/2022 Dr Du CORONARY ARTERY DILATION 03/12/2010 3 stents EGD 07/26/2022 IMPLANTABLE CARDIOVERTER DEFIBRILLATOR 09/05/2010 duel chamber REMV CATARACT EXTRACAP,INSERT LENS Bilateral ALLERGIES Avandamet [Rosiglitazone-Metformin], Iodine, Oxycodone, and Promethazine-Codeine MEDICATIONS Current Outpatient Medications Medication Sig empagliflozin (JARDIANCE) 10 mg tablet Take 1 tablet by mouth daily with breakfast. SITagliptin-metFORMIN (JANUMET) 50-1,000 mg per tablet Take 1 tablet in the morning and 1/2 tablet in the evening. pantoprazole DR (PROTONIX) 40 mg tablet Take 1 tablet by mouth once daily. losartan (COZAAR) 50 mg tablet Take 50 mg by mouth once daily. ferrous sulfate 325 mg (65 mg iron) tablet Take 325 mg by mouth every other day. rosuvastatin (CRESTOR) 5 mg tablet Take 5 mg by mouth once daily. OTC PRODUCT 1,000 mg twice daily. Tumeric complex Lancets lancets Test blood sugar(s) 1 times daily. Dx: Type 2 DM - Controlled E11.9 Insulin: No blood sugar diagnostic (BLOOD GLUCOSE TEST) test strip Test blood sugar(s) 1 times daily. Dx: Type 2 DM - Controlled E11.9 Insulin: No sotalol (BETAPACE) 80 mg tablet Take 1 1/2 tablets by mouth twice daily. apixaban (ELIQUIS) 5 mg tab(s) Take 5 mg by mouth twice daily. cyanocobalamin (VITAMIN B-12) 1,000 mcg tab Take 1,000 mcg by mouth once daily. VITAMIN B COMPLEX-100 ORAL Take 1 tablet by mouth once daily. clopidogrel (PLAVIX) 75 mg tablet Take 75 mg by mouth once daily. UBIDECARENONE (COQ-10 ORAL) Take 400 mg by mouth once daily. No current facility-administered medications for this visit. FAMILY HISTORY Problem Relation Age of Onset Heart Father Cancer Mother Tremor Mother Diabetes Sister Diabetes Daughter prediabetic Diabetes Other Diabetes Other Social History Tobacco Use Smoking status: Never Smokeless tobacco: Never Vaping Use Vaping status: Never Used Substance Use Topics Alcohol use: No Drug use: No REVIEW OF SYSTEMS Cardiovascular: (-) chest pain, (-) palpitations Respiratory: (-) shortness of breath EXAM: BP 122/72 Pulse 85 Resp 16 SpO2 97% PHYSICAL EXAM: General Appearance: Well appearing, alert, in no acute distress, well-hydrated, well nourished.. Skin: Skin color, texture, turgor normal, no suspicious rashes or lesions. Head: Normocephalic, no masses, lesions, tenderness or abnormalities. Eyes: Anicteric sclera. Extraocular movements are intact. . Lungs: Lungs clear to auscultation. No wheezing, rhonchi, rales.. Heart: RRR without murmur, gallop, or rubs. No ectopy. Extremities: No deformities, edema, skin discoloration, clubbing or cyanosis. Good capillary refill. . Neurologic: Gait normal. ASSESSMENT/PLAN 1. Type 2 diabetes mellitus without complication, without long-term current use of insulin (HCC) (E11.9) - Currently on Jardiance and Janumet; taking Jardiance daily. - No symptoms of hypoglycemia reported; not monitoring blood glucose levels at home. - Ordered HbA1c to assess glycemic control. - Advised patient to continue current medication regimen. Follow-up pending lab results. 2. Primary hypertension (I10) - Blood pressure is well-controlled. - Continue current antihypertensive regimen. Discussed treatment plan and patient voices understanding. Patient's questions answered appropriately. Medications and potential side effects were discussed and patient voices understanding. Return to the office as scheduled or as needed for worsening/no improvement. Ya Morel APRN.HEATING AND BLENDING SUPERVISOR Recording using [employer] software (more content not included)...[facility]07-15-2025 History of Present illness Narrative* Ya Morel APRN.HEATING AND BLENDING SUPERVISOR - 09/23/2024 1:38 PM EDT This is a 83 year old male who presents today with: Ed Luigi Lee is an 83-year-old male with a history of diabetes mellitus, presenting for a follow-upvisit. HISTORY OF PRESENT ILLNESS: Diabetes Mellitus: - Recently started on Jardiance; Ed reports no issues with the medication. - Not taking Janumet. - Denies symptoms of hypoglycemia. - does not check home sugars. - Not following a specific diet. - Reports normal urination. HTN: - Denies chest pain, palpitations, dyspnea, or peripheral edema. 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 Hyperlipidemia Impacted cerumen TN (myocardial infarction) ([facility]) '93, '98, '03, '04 Pneumonia 03/08/2011 PAST SURGICAL HISTORY Procedure Laterality Date ANGIOPLASTY 02/2004 with stents ARTHRP ACETBLR/PROX FEM PROSTC AGRFT/ALGRFT Right CABG (2) VEIN GRAFTS & ARTERIAL GRAFT(S 09/09/1997 COLONOSCOPY 07/26/2022 COLONOSCOPY SCREENING 08/09/2022 Dr Du CORONARY ARTERY DILATION 03/12/2010 3 stents EGD 07/26/2022 IMPLANTABLE CARDIOVERTER DEFIBRILLATOR 09/05/2010 duel chamber REMV CATARACT EXTRACAP,INSERT LENS Bilateral ALLERGIES Avandamet [Rosiglitazone-Metformin], Iodine, Oxycodone, and Promethazine-Codeine MEDICATIONS Current Outpatient Medications Medication Sig empagliflozin (JARDIANCE) 10 mg tablet Take 1 tablet by mouth daily with breakfast. SITagliptin-metFORMIN (JANUMET) 50-1,000 mg per tablet Take 1 tablet in the morning and 1/2 tablet in the evening. pantoprazole DR (PROTONIX) 40 mg tablet Take 1 tablet by mouth once daily. losartan (COZAAR) 50 mg tablet Take 50 mg by mouth once daily. ferrous sulfate 325 mg (65 mg iron) tablet Take 325 mg by mouth every other day. rosuvastatin (CRESTOR) 5 mg tablet Take 5 mg by mouth once daily. OTC PRODUCT 1,000 mg twice daily. Tumeric complex Lancets lancets Test blood sugar(s) 1 times daily. Dx: Type 2 DM - Controlled E11.9 Insulin: No blood sugar diagnostic (BLOOD GLUCOSE TEST) test strip Test blood sugar(s) 1 times daily. Dx: Type 2 DM - Controlled E11.9 Insulin: No sotalol (BETAPACE) 80 mg tablet Take 1 1/2 tablets by mouth twice daily. apixaban (ELIQUIS) 5 mg tab(s) Take 5 mg by mouth twice daily. cyanocobalamin (VITAMIN B-12) 1,000 mcg tab Take 1,000 mcg by mouth once daily. VITAMIN B COMPLEX-100 ORAL Take 1 tablet by mouth once daily. clopidogrel (PLAVIX) 75 mg tablet Take 75 mg by mouth once daily. UBIDECARENONE (COQ-10 ORAL) Take 400 mg by mouth once daily. No current facility-administered medications for this visit. FAMILY HISTORY Problem Relation Age of Onset Heart Father Cancer Mother Tremor Mother Diabetes Sister Diabetes Daughter prediabetic Diabetes Other Diabetes Other Social History Tobacco Use Smoking status: Never Smokeless tobacco: Never Vaping Use Vaping status: Never Used Substance Use Topics Alcohol use: No Drug use: No REVIEW OF SYSTEMS Cardiovascular: (-) chest pain, (-) palpitations Respiratory: (-) shortness of breath EXAM: BP 122/72 Pulse 85 Resp 16 SpO2 97% PHYSICAL EXAM: General Appearance: Well appearing, alert, in no acute distress, well-hydrated, well nourished.. Skin: Skin color, texture, turgor normal, no suspicious rashes or lesions. Head: Normocephalic, no masses, lesions, tenderness or abnormalities. Eyes: Anicteric sclera. Extraocular movements are intact. . Lungs: Lungs clear to auscultation. No wheezing, rhonchi, rales.. Heart: RRR without murmur, gallop, or rubs. No ectopy. Extremities: No deformities, edema, skin discoloration, clubbing or cyanosis. Good capillary refill. . Neurologic: Gait normal. ASSESSMENT/PLAN 1. Type 2 diabetes mellitus without complication, without long-term current use of insulin (HCC) (E11.9) - Currently on Jardiance and Janumet; taking Jardiance daily. - No symptoms of hypoglycemia reported; not monitoring blood glucose levels at home. - Ordered HbA1c to assess glycemic control. - Advised patient to continue current medication regimen. Follow-up pending lab results. 2. Primary hypertension (I10) - Blood pressure is well-controlled. - Continue current antihypertensive regimen. Discussed treatment plan and patient voices understanding. Patient's questions answered appropriately. Medications and potential side effects were discussed and patient voices understanding. Return to the office as scheduled or as needed for worsening/no improvement. Ya Morel APRN.HEATING AND BLENDING SUPERVISOR Recording using [employer] software for draft documentation of the visit was discussed with the patient/authorized personal financial representative; all questions welcomed and answered. Patient/authorized personal financial representative agreed to proceed documented in this encounterOur [facility] Of [facility]07-15-2025 Instructions* Patient Instructions* Ya Morel APRN.CNP - 09/23/2024 1:30 PM EDT - Continue taking Jardiance every day as prescribed. - Go to the lab right after your appointment to have a hemoglobin A1c and a complete blood count drawn. Recheck in 6 months. documented in this encounterOur Lady Of Mercy Hospital07-08-2025 NoteHNO ID: [id number] Author: EDMOND SAAVEDRA PT Service: ? Author Type: Physical Therapist Type: Progress Notes Filed: 09/16/2024 08:21 Note Text: 09/16/2024 [facility] PHYSICAL THERAPY DISCONTINUANCE OF CARE Plan of Care Period: Start of Care Date: 07/16/24 Last Visit Date: 08/13/2024 Therapy Program: The following is a summary of the interventions provided for this episode of care; Therapeutic exercise, Neuromuscular re-education, and Patient/Family/Caregiver Education Assessment: Based on most recent visit, patient was progressing as expected toward functional goals based on documented subjective information on progress. Unable to formally assess goal achievement, as patient has not returned to therapy or scheduled additional follow-up appointments. Reason for Discontinuation of Care: Patient has not returned to therapy or scheduled additional follow-up appointments. Patient was a No Show for a 08/21/2024 for a Progress Report and we have not heard from him. Discontinue therapy services at this time. Edmond Saavedra PT, [facility]07-01-2025 Instructions* Patient Instructions* Jaja Gaona MD - 09/09/2024 2:23 PM EDT - Wear your hearing aids every day to support your hearing and memory. - Take your diabetes medications as prescribed every day rather than sometimes to help prevent memory issues. - Use the brain CAT scan order - A follow-up visit is planned in 3 months; our pelt dropper will contact you to set the exact date and time. documented in this encounterOur Lady Of Mercy Hospital07-01-2025 NoteHNO ID: [id number] Author: JAJA GAONA MD Service: ? Author Type: Physician Type: Progress Notes Filed: 09/21/2024 19:30 Note Text: Neurological [place] September 09, 2024 New Patient My final recommendations will be communicated back to the requesting physician by way of shared medical record or letter via [place] mail. Referring physician:Zachary Jacobsen [facility] [id number] Patient presents with: Consult: Memory Accompanied by Spouse. Referred by Zachary Jacobsen [facility] [id number]. HISTORY AND PHYSICAL Ed Luigi Lee is an 83-year-old male with a history of diabetes and hearing loss, presenting for evaluation of memory loss. He is accompanied by his , who provides additional history. Ed was referred by Dr. Kennedy for memory loss, which he is unsure if he is experiencing. His reports that memory issues have been present for the past few years. He does not wear his hearing aids consistently, which may contribute to his memory concerns. He is able to perform most activities of daily living independently, such as dressing and eating, but does not cook. His manages the household finances, a role she has always held. He does not report any significant changes in his ability to perform daily tasks. He reports occasional balance issues but has not experienced frequent falls. The last fall occurred four months ago when he tripped and fell forward. He does not endorse urinary incontinence or recent changes in urinary function. He has a history of diabetes, which Ed manages inconsistently. He does not report any seizures and has no family history of seizures. He is right-hand dominant and experiences occasional tremors in his hands, more frequently in the left hand. 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 He is unable to undergo MRI due to the defibrillator. Past Diagnostic Results: - (06/2022) CT Scan of Brain: Ordered by Dr. Kennedy. 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 90 tablet 3 SITagliptin-metFORMIN (JANUMET) 50-1,000 mg per tablet Take 1 tablet in the morning and 1/2 tablet in the evening. [address] (PROTONIX) 40 mg tablet Take 1 tablet by mouth once daily. 90 tablet 3 losartan (COZAAR) 50 mg tablet Take 50 mg by mouth once daily. ferrous sulfate 325 mg (65 mg iron) tablet Take 325 mg by mouth every other day. rosuvastatin (CRESTOR) 5 mg tablet Take 5 mg by mouth once daily. OTC PRODUCT 1,000 mg twice daily. Tumeric complex Lancets lancets Test blood sugar(s) 1 times daily. Dx: Type 2 DM - Controlled E11.9 Insulin: No 50 Each 11 blood sugar diagnostic (BLOOD GLUCOSE TEST) test strip Test blood sugar(s) 1 times daily. Dx: Type 2 DM - Controlled E11.9 Insulin: No 50 Strip 11 sotalol (BETAPACE) 80 mg tablet Take 1 1/2 tablets by mouth twice daily. apixaban (ELIQUIS) 5 mg tab(s) Take 5 mg by mouth twice daily. cyanocobalamin (VITAMIN B-12) 1,000 mcg tab Take 1,000 mcg by mouth once daily. VITAMIN B COMPLEX-100 ORAL Take 1 tablet by mouth once daily. clopidogrel (PLAVIX) 75 mg tablet Take 75 mg by mouth once daily. UBIDECARENONE (COQ-10 ORAL) Take 400 mg by mouth once daily. No current facility-administered medications for this visit. Review of Systems: As shown in history All other systems reviewed and are negative. Review of Systems Constitutional: Negative Eyes: Negative Hent: Negative Cardiovascular: Negative Respiratory: Negative GI: Negative : Negative Endocrine: Negative Musculoskeletal: Negative Integumentary: Negative Heme/Lymph: Negative Allergy/Immunologic: Negative Neurologic Positive for Memory Problems Psychiatric: Negative Patient's Review of Systems has been reviewed with the patient and updated as appropriate. Objective Physical Exam BP 134/83 (BP Site: Left Arm, BP Position: Sitting, BP Cuff Size: Regular Adult) Pulse 69 Resp 16 SpO2 100% Neurological Exam MENTAL STATUS: difficulty with recall and magnified by hearing loss 25/30 MMSE,hard of hearing forgot hearing aids today CRANIAL NERVES: EOM's intact, Facial sensation intact, No facial droop or ptosis, and No dysarthria MOTOR: No drift and Normal tone MOTOR STRENGTH: Upper and lower extremity 5/5 bilaterallytremors as action tremors in the left hand ,very mi (more content not included)...[facility]07-01-2025 History of Present illness Narrative* Jaja Gaona MD - 09/09/2024 12:50 PM EDT Images from the original note were not included. Neurological [place] September 09, 2024 New Patient My final recommendations will be communicated back to the requesting physician by way of shared medical record or letter via [place] mail. Referring physician:Zachary Jacobsen [facility] [id number] Patient presents with: Consult: Memory Accompanied by Spouse. Referred by Zachary Jacobsen [facility] [id number]. HISTORY AND PHYSICAL Ed Luigi Lee is an 83-year-old male with a history of diabetes and hearing loss, presenting for evaluation of memory loss. He is accompanied by his , who provides additional history. Ed was referred by Dr. Kennedy for memory loss, which he is unsure if he is experiencing. His reports that memory issues have been present for the past few years. He does not wear his hearing aids consistently,which may contribute to his memory concerns. He is able to perform most activities of daily living independently, such as dressing and eating, but does not cook. His manages the household finances, a role she has always held. He does not report any significant changes in his ability to perform daily tasks. He reports occasional balance issues but has not experienced frequent falls. The last fall occurredfour months ago when he tripped and fell forward. He does not endorse urinary incontinence or recent changes in urinary function. He has a history of diabetes, which Ed manages inconsistently. He does not report any seizures and has no family history of seizures. He is right-hand dominant and experiences occasional tremors in his hands, more frequently in the left hand. 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 He is unable to undergo MRI due to the defibrillator. Past Diagnostic Results: - (06/2022) CT Scan of Brain: Ordered by Dr. Kennedy. 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 90 tablet 3 SITagliptin-metFORMIN (JANUMET) 50-1,000 mg per tablet Take 1 tablet in the morning and 1/2 tablet in the evening. [address] (PROTONIX) 40 mg tablet Take 1 tablet by mouth once daily. 90 tablet 3 losartan (COZAAR) 50 mg tablet Take 50 mg by mouth once daily. ferrous sulfate 325 mg (65 mg iron) tablet Take 325 mg by mouth every other day. rosuvastatin (CRESTOR) 5 mg tablet Take 5 mg by mouth once daily. OTC PRODUCT 1,000 mg twice daily. Tumeric complex Lancets lancets Test blood sugar(s) 1 times daily. Dx: Type 2 DM - Controlled E11.9 Insulin: No 50 Each 11 blood sugar diagnostic (BLOOD GLUCOSE TEST) test strip Test blood sugar(s) 1 times daily. Dx: Type 2 DM - Controlled E11.9 Insulin: No 50 Strip 11 sotalol (BETAPACE) 80 mg tablet Take 1 1/2 tablets by mouth twice daily. apixaban (ELIQUIS) 5 mg tab(s) Take 5 mg by mouth twice daily. cyanocobalamin (VITAMIN B-12) 1,000 mcg tab Take 1,000 mcg by mouth once daily. VITAMIN B COMPLEX-100 ORAL Take 1 tablet by mouth once daily. clopidogrel (PLAVIX) 75 mg tablet Take 75 mg by mouth once daily. UBIDECARENONE (COQ-10 ORAL) Take 400 mg by mouth once daily. No current facility-administered medications for this visit. Review of Systems: As shown in history All other systems reviewed and are negative. Review of Systems Constitutional: Negative Eyes: Negative Hent: Negative Cardiovascular: Negative Respiratory: Negative GI: Negative : Negative Endocrine: Negative Musculoskeletal: Negative Integumentary: Negative Heme/Lymph: Negative Allergy/Immunologic: Negative Neurologic Positive for Memory Problems Psychiatric: Negative Patient's Review of Systems has been reviewed with the patient and updated as appropriate. Objective Physical Exam BP 134/83 (BP Site: Left Arm, BP Position: Sitting, BP Cuff Size: Regular Adult) Pulse 69 Resp 16 SpO2 100% Neurological Exam MENTAL STATUS: difficulty with recall and magnified by hearing loss 25/30 MMSE,hard of hearing forgot hearing aids today CRANIAL NERVES: EOM's intact, Facial sensation intact, No facial droop or ptosis, and No dysarthria MOTOR: No drift and Normal tone MOTOR STRENGTH: Upper and lower extremity 5/5 bilaterallytremors as action tremors in the left hand,very mild in the right hand REFLEXES: SYMMETRICALdiminished all over SENSATION: positive romberg COORDINATION: Finger-to- nose-finger intact bilaterallyno dysmetria on FTN or HTS GAIT: Wide-basedwalked with no device ,unassisted ,wide based gait No difficulty turning Data Diagnostic tests reviewed for today's visit: LABS: Lab Results Component Value Date PLT 191 06/17/2024 HB 12.7 (L) 06/17/2024 HCT 39.4 06/17/2024 ALB 4.2 06/17/2024 CA 9.5 07/23/2024 TBILI 0.4 06/17/2024 ALKPHOS 95 06/17/2024 AST 17 06/17/2024 GLUC 259 (H) 07/23/2024 BUN 22 07/23/2024 NA 136 07/23/2024 K 4.6 07/23/2024 CHLOR 103 07/23/2024 CO2 22 07/23/2024 ANION 11 07/23/2024 ALT 10 06/17/2024 No results found for: WSR, CRP, IGG No results found for: USCRP Lab Results Component Value Date CHOL 163 12/18/2023 CHOL 194 08/13/2020 Lab Results Component Value Date LDL 101 (H) 12/18/2023 LDL 69 06/15/2022 LDL 140 (H) 08/13/2020 Lab Results Component Value Date HDL 35 (L) 12/18/2023 HDL 47 06/15/2022 HDL 36 (L) 08/13/2020 Lab Results Component Value Date TG 133 12/18/2023 TG 64 06/15/2022 TG 91 08/13/2020 Lab Results Component Value Date HBA1C 9.5 (H) 06/17/2024 HBA1C 8.4 (H) 12/18/2023 HBA1C 6.9 (H) 12/22/2022 Lab Results Component Value Date TSH 2.450 06/17/2024 TSH 3.600 12/18/2023 TSH 1.360 12/22/2022 Lab Results Component Value Date B12 930 06/17/2024 IMAGING: Last MRI Cervical Spine - Impression Only No resulted procedures found. MRI Report No resulted procedures found. No results found. Social Drivers of Health Tobacco Use: Low Risk (09/04/2024) Patient History Smoking Tobacco Use: Never Smokeless Tobacco Use: Never Passive Exposure: Not on file Alcohol Use: Not on file Financial Resource Strain: Not on file Food Insecurity: Not on file Transportation Needs: Not on file Physical Activity: Not on file Stress: Not on file Social Connections: Not on file Intimate Partner Violence: Not on file Depression: Not at risk (06/17/2024) PHQ-2 PHQ-2 Score: 0 Housing Stability: Not on file Utilities: Not on file Area Deprivation Index: Medium Risk (07/19/2022) Area Deprivation Index National Score (1-100), lower number is lower risk: 54 State Score (1-10), lower number is lower risk: 3 Data from: https://www.neighborhoodatlas.medicine.[facility].edu/. Last address used for calculation: [id number] Diagnosis: (R93.0) Abnormal CT scan of head (R41.3) Memory loss IMP/PLAN: Ronnie Lee is 83 year old male, with hearing loss and multiple vascular risk factors ,here today for memory loss ,patient denies confirms that has been stable in the last 2 years Patient has poorly ocntrolled diabetes and diabetic neuropathy with imbalance He has no urinary symptroms Office Visit on 09/09/24 CT BRAIN WO [facility] CONSULT TO NEUROLOGY NEUROPSYCHOLOGICAL TESTING CONSULT HEARING TEST/AUDIOGRAM EPIL EEG ROUTINE 1. Abnormal CT scan of head (R93.0) - CT scan of the brain performed in June in [place], ordered by Dr. Kennedy. - Ordered repeat CT scan of the brain; scheduled to be performed locally in [place]. 2. Memory loss (R41.3) - Memory loss reported over the past few years. - Patient not consistently wearing hearing aids, which may contribute to memory issues; emphasized the importance of wearing hearing aids daily to improve auditory input and potentially enhance memory function. - Discussed the impact of poorly controlled diabetes on cognitive function; advised consistent management of diabetes. - Patient exhibits tremors in both hands, more pronounced in the left hand; tremors are longstanding. - No history of seizures or urinary incontinence reported. - Follow-up appointment scheduled in 3 months to reassess cognitive function and review CT scan results. Jaja Gaona MD [facility]rological [place] Department of Neurology Total time in minutes spent with patient, reviewing records, labs, imaging, formulating plan, and documentin minutes with more than 50% of the time spent in patient education/counselling/coordinating care with the patient and /or family. documented in this encounterOur Lady Of Mercy [facility]06-26-2025 NoteHNO ID: [id number] Author: JANEEN GOODMAN MD Service: ? Author Type: Physician Type: Progress Notes Filed: 09/05/2024 10:14 Note Text: [facility] - NEW PATIENT EVALUATION Recording using Ky[employer] software for draft documentation of the visit was discussed with the patient/authorized personal financial representative; all questions welcomed and answered. Patient/authorized personal financial representative agreed to proceed Primary Care Provider: Zachary Kennedy MD [address] [facility] [id number] Dear Zachary Kennedy MD: I had the pleasure of evaluating Mr. Lee in our clinic today. As you know he is a 83 year old male who presents for evaluation of since . Subjective HISTORY OF PRESENT ILLNESS: Ed Luigi Lee is an 83-year-old male with a history of diabetes, presenting for evaluation of tremors and balance issues. He is accompanied by his , who provides additional history. Ed reports a longstanding history of hand tremors, beginning in his 60s, which primarily affect his left hand. These tremors are noticeable when eating or drinking, requiring the use of both hands to steady objects. He does not endorse tremors in his head, voice, or legs. He describes the tremors as manageable and not severe enough to warrant medication. Family history is significant for similar tremors in his mother, niece, and grandniece. He reports occasional dizziness and falls, occurring a few times per year, often on sloped surfaces. He does not endorse difficulty with getting in and out of bed, turning over in bed, or performing activities of daily living such as eating, dressing, or showering. He does not use a shower chair and prefers taking baths. He does not endorse weakness in his legs but notes that his right foot drags when walking, a symptom that began after a suspected stroke in [place]. He does not endorse numbness in his legs or elsewhere. He reports increased urinary frequency and urgency, sometimes leading to accidents. He does not endorse constipation, difficulty swallowing, drooling, or changes in speech or voice. He reports a decreased sense of smell without a history of sinus surgery or COVID-19 infection. He sleeps well at night and his notes that he talks and laughs in his sleep but does not act out dreams with physical movements. He does not endorse hallucinations or significant memory issues. He has been referred to neurology for memory though. He continues to drive and manage daily activities with minimal assistance from his daughter, who has set up automatic bill payments for him. His daughter lives in [facility] where he and his neha. His daughter is comfortable with him and his being in [place] for the summer on their own. He does not endorse feelings of sadness or anxiety affecting his life. He has been participating in physical therapy at [facility] in [place], which he finds helpful. He has not attended since August 13. Movement Disorders Medications Schedule - as of the start of the visit: Medications Questionnaires In addition, the following areas that may be affected by abnormal involuntary movements were evaluated: Daily activities Difficulties with eating: no Difficulties in dressing: no Difficulties with hygiene activities: no Difficulties with handwriting: no change Difficulties with doing hobbies and other activities: no Difficulties turning in bed: no Difficulties getting out of bed, car or chair: no Tremors/Gait/Balance Shaking or tremors: Walking and balance problems: Number of falls in the Last Month: Gait freezing: Autonomic/Pain Lightheadeness on standing: Urinary problems: urgency, frequency. accidents, not sure why Constipation problems: no Pain and other sensations: Speech/Swallowing Speech problems: no Drooling: no Chewing and swallowing problems: no Sleep/Fatigue Sleep problems: no Daytime sleepiness: Fatigue: In addition, the following non-motor symptoms and palliative concerns were evaluated: Sleep/Fatigue: REM sleep behavior disorder: Yes talks and laughs Restless Legs Syndrome: Leg swelling: Impaired sense of smell: No Cognition: Memory and Thinkin - Normal. No cognitive impairment. Hallucinations and Psychosis: 0 - Normal. No hallucinations or psychotic behavior. Depressed Mood: 0 - Normal. No depressed mood. Anxious Mood: 0 - Normal. No anxious feelings. Apathy: Impulse Control: MoCA Cognitive assessment: Palliative Concerns: Caregiver burden: Spiritual concerns: Advanced directives on file: Palliative services: Therapy and Exercise: Last PT Date: 08/13/2024 (with Naheed Becerra) for ataxia Last OT Date: Last ST Date: Exercises Regularly: ALLERGIES Allergen Reactions Avandamet [Rosiglit* Intolerance refuses Iodine Anaphylaxis Oxycodone GI Upset, Vomiting Dizziness Promethazine-Codeine Intolerance Low BP, vomited Current Outpatient Medications [facility] (more content not included)...[facility]06-26-2025 History of Present illness Narrative* Janeen Goodman MD - 09/04/2024 10:16 AM EDT [facility] - NEW PATIENT EVALUATION Recording using Kydaemos software for draft documentation of the visit was discussed with the patient/authorized personal financial representative; all questions welcomed and answered. Patient/authorized personal financial representative agreed to proceed Primary Care Provider: Zachary Kennedy MD [address] [facility] [id number] Dear Zachary Kennedy MD: I had the pleasure of evaluating Mr. Lee in our clinic today. As you know he is a 83 year old male who presents for evaluation of since . Subjective HISTORY OF PRESENT ILLNESS: Ed Luigi Lee is an 83-year-old male with a history of diabetes, presenting for evaluation of tremors and balance issues. He is accompanied by his , who provides additional history. Ed reports a longstanding history of hand tremors, beginning in his 60s, which primarily affect his left hand. These tremors are noticeable when eating or drinking, requiring the use of both hands to steady objects. He does not endorse tremors in his head, voice, or legs. He describes the tremors as manageable and not severe enough to warrant medication. Family history is significant for similar tremors in his mother, niece, and grandniece. He reports occasional dizziness and falls, occurring a few times per year, often on sloped surfaces. He does not endorse difficulty with getting in and out of bed, turning over in bed, or performing activities of daily living such as eating, dressing, or showering. He does not use a shower chair and prefers taking baths. He does not endorse weakness in his legs but notes that his right foot dragswhen walking, a symptom that began after a suspected stroke in [place]. He does not endorse numbness in his legs or elsewhere. He reports increased urinary frequency and urgency, sometimes leading to accidents. He does not endorse constipation, difficulty swallowing, drooling, or changes in speech or voice. He reports a decreased sense of smell without a history of sinus surgery or COVID-19 infection. He sleeps well at night and his notes that he talks and laughs in his sleep but does not act out dreams with physical movements. He does not endorse hallucinations or significant memory issues. He has been referred to neurology for memory though. He continues to drive and manage daily activities with minimal assistance from his daughter, who has set up automatic bill payments for him. His daughter lives in [facility] where he and his neha. His daughter is comfortable with him and his being in [place] for the summer on their own. He does not endorse feelings of sadness or anxiety affecting his life. He has been participating in physical therapy at [facility] in [place], which he finds helpful. He hasnot attended since August 13. Movement Disorders Medications Schedule - as of the start of the visit: Medications Questionnaires In addition, the following areas that may be affected by abnormal involuntary movements were evaluated: Daily activities Difficulties with eating: no Difficulties in dressing: no Difficulties with hygiene activities: no Difficulties with handwriting: no change Difficulties with doing hobbies and other activities: no Difficulties turning in bed: no Difficulties getting out of bed, car or chair: no Tremors/Gait/Balance Shaking or tremors: Walking and balance problems: Number of falls in the Last Month: Gait freezing: Autonomic/Pain Lightheadeness on standing: Urinary problems: urgency, frequency. accidents, not sure why Constipation problems: no Pain and other sensations: Speech/Swallowing Speech problems: no Drooling: no Chewing and swallowing problems: no Sleep/Fatigue Sleep problems: no Daytime sleepiness: Fatigue: In addition, the following non-motor symptoms and palliative concerns were evaluated: Sleep/Fatigue: REM sleep behavior disorder: Yes talks and laughs Restless Legs Syndrome: Leg swelling: Impaired sense of smell: No Cognition: Memory and Thinkin - Normal. No cognitive impairment. Hallucinations and Psychosis: 0 - Normal. No hallucinations or psychotic behavior. Depressed Mood: 0 - Normal. No depressed mood. Anxious Mood: 0 - Normal. No anxious feelings. Apathy: Impulse Control: MoCA Cognitive assessment: Palliative Concerns: Caregiver burden: Spiritual concerns: Advanced directives on file: Palliative services: Therapy and Exercise: Last PT Date: 08/13/2024 (with Naheed Becerra) for ataxia Last OT Date: Last ST Date: Exercises Regularly: ALLERGIES Allergen Reactions Avandamet [Rosiglit* Intolerance refuses Iodine Anaphylaxis Oxycodone GI Upset, Vomiting Dizziness Promethazine-Codeine Intolerance Low BP, vomited Current Outpatient Medications Medication Sig empagliflozin (JARDIANCE) 10 mg tablet Take 1 tablet by mouth daily with breakfast. SITagliptin-metFORMIN (JANUMET) 50-1,000 mg per tablet Take 1 tablet in the morning and 1/2 tablet in the evening. pantoprazole DR (PROTONIX) 40 mg tablet Take 1 tablet by mouth once daily. losartan (COZAAR) 50 mg tablet Take 50 mg by mouth once daily. ferrous sulfate 325 mg (65 mg iron) tablet Take 325 mg by mouth every other day. rosuvastatin (CRESTOR) 5 mg tablet Take 5 mg by mouth once daily. (Patient taking differently: Take5 mg by mouth two times a day.) OTC PRODUCT 1,000 mg twice daily. Tumeric complex Lancets lancets Test blood sugar(s) 1 times daily. Dx: Type 2 DM - Controlled E11.9 Insulin: No blood sugar diagnostic (BLOOD GLUCOSE TEST) test strip Test blood sugar(s) 1 times daily. Dx: Type 2 DM - Controlled E11.9 Insulin: No sotalol (BETAPACE) 80 mg tablet Take 1 1/2 tablets by mouth twice daily. apixaban (ELIQUIS) 5 mg tab(s) Take 5 mg by mouth twice daily. cyanocobalamin (VITAMIN B-12) 1,000 mcg tab Take 1,000 mcg by mouth once daily. VITAMIN B COMPLEX-100 ORAL Take 1 tablet by mouth once daily. clopidogrel (PLAVIX) 75 mg tablet Take 75 mg by mouth once daily. UBIDECARENONE (COQ-10 ORAL) Take 400 mg by mouth once daily. No current facility-administered medications for this visit. Past Medical and Surgical History: has a past medical history of CAD (coronary artery disease), Chronic atrial fibrillation (HCC), CLL(chronic lymphocytic leukemia) ([facility]), Cough, Degenerative arthritis, DM type 2 (diabetes mellitus, type 2) ([facility]), GERD without esophagitis (12/02/2018), Hearing loss, Hyperlipidemia, Impacted cerumen, [place] (myocardial infarction) ([facility]), and Pneumonia (03/08/2011). has a past surgical history that includes coronary artery dilation (03/12/2010); angioplasty (02/2004); implantable cardioverter defibrillator (09/05/2010); cabg (2) vein grafts & arterial graft(s (09/09/1997); arthrp acetblr/prox fem prostc agrft/algrft (Right); remv cataract extracap,insert lens (Bilateral); egd (07/26/2022); colonoscopy (07/26/2022); and Colonoscopy Screening (08/09/2022). Social History Tobacco Use Smoking status: Never Smokeless tobacco: Never Vaping Use Vaping status: Never Used Substance Use Topics Alcohol use: No Drug use: No Family History: family history includes Cancer in his mother; Diabetes in his daughter, sister, and other family members; Heart in his father; Tremor in his mother. Objective Vital Signs: Wt 73.1 kg (161 lb 2.5 oz) SpO2 100% BMI 23.33 kg/m Orthostatic Vitals: Sitting: BP 135/85 Pulse 79 Standing: BP 110/78 Pulse 83 Weight: 73.1 kg (161 lb 2.5 oz) No LMP for male patient. Body mass index is 23.33 kg/m . Neurological Exam Mental Status Awake and alert. Language is fluent with no aphasia. Limited historian. Looks to for many answers. Cranial Nerves CN III, IV, : Extraocular movements intact bilaterally. CN V: Facial sensation is normal. CN VII: Full and symmetric facial movement. CN VIII: Right: Hearing is decreased. Left: Hearing is decreased. CN XI: Shoulder shrug strength is normal. CN XII: Tongue midline without atrophy or fasciculations. Motor Normal muscle tone. The following abnormal movements were seen: Bilateral upper extremity action/intention and postural tremors. No resting tremors. No tremor of voice, legs, or head. No rigidity or bradykinesia. Right Left Shoulder abduction 5 5 Elbow flexion 5 5 Wrist extension 5 5 Hip flexion 5 5 Knee flexion 5 5 Dorsiflexion 5 5 Sensory Vibration intact at ankles. Reflexes Right Left Brachioradialis 2+ 1+ Biceps 2+ 1+ Patellar Tr Tr Achilles 0 0 Right pathological reflexes: Omari's absent. Left pathological reflexes: Omari's absent. Coordination Right: Iligvz-qp-wbsn normal. Rapid alternating movement normal. Bysq-ji-mdzm normal.Left: Giurqf-iq-pree normal. Rapid alternating movement normal. Eaem-pv-ktul normal. Gait Casual gait: Normal stance. Reduced stride length. Hesitant gait. Romberg is absent. Sways but maintains. Unable to rise from chair without using arms. Pertinent Studies CT Brain Report - Impression CT BRAIN WO IVCON Exam End: 07/02/2024 Impression: IMPRESSION: No evidence of acute intracranial process or mass effect. Consider normal pressure/communicating hydrocephalus in the appropriate clinical context, versus central volume loss. Few chronic lacunar infarcts. Latest Ref Rng 06/17/2024 07/23/2024 WBC 3.70 - 11.00 k/uL 12.00 (H) RBC 4.20 - 6.00 m/uL 4.42 Hemoglobin 13.0 - 17.0 g/dL 12.7 (L) Hematocrit 39.0 - 51.0 % 39.4 MCV 80.0 - 100.0 fL 89.1 MCH 26.0 - 34.0 pg 28.7 MCHC 30.5 - 36.0 g/dL 32.2 RDW-CV 11.5 - 15.0 % 12.6 Platelet Count 150 - 400 k/uL 191 MPV 9.0 - 12.7 fL 11.4 NRBC /100 WBC 0.0 Absolute nRBC <0.01 k/uL <0.01 Neut% % 46.0 Abs Neut (ANC) 1.45 - 7.50 k/uL 5.52 Lymph% % 47.0 Abs Lymph 1.00 - 4.00 k/uL 5.64 (H) Lander% % 7.0 Abs Lander <0.87 k/uL 0.84 Eosin% % 0.0 Abs Eosin <0.46 k/uL 0.00 Baso% % 0.0 Abs Baso <0.11 k/uL 0.00 Platelet Estimate Adequate Platelet Clumping Present Red Cell Morph Reviewed: see results of individual morphologies Ovalocytes Few DTYPE Manual Protein, Total 6.3 - 8.0 g/dL 7.4 Albumin 3.9 - 4.9 g/dL 4.2 Calcium 8.5 - 10.2 mg/dL 9.3 9.5 Bilirubin, Total 0.2 - 1.3 mg/dL 0.4 Alkaline Phosphatase 38 - 113 U/L 95 AST 14 - 40 U/L 17 ALT 10 - 54 U/L 10 Glucose 74 - 99 mg/dL 418 (H) 259 (H) BUN 9 - 24 mg/dL 20 22 Creatinine 0.73 - 1.22 mg/dL 1.32 (H) 1.34 (H) Sodium 136 - 144 mmol/L 135 (L) 136 Potassium 3.7 - 5.1 mmol/L 4.8 4.6 Chloride 98 - 107 mmol/L 98 103 CO2 22 - 30 mmol/L 22 22 Anion Gap 8 - 15 mmol/L 15 11 eGFR >=60 mL/min/1.73m 53 (L) 52 (L) Iron 41 - 186 ug/dL 103 TIBC 232 - 386 ug/dL 348 Transferrin Saturation 15.0 - 57.0 % 29.6 Syphilis Treponemal Screen Nonreactive Nonreactive Syphilis Interpretation Cannot exclude recent Treponemal infection if specimen collected within 7-10 days after appearance of suspect lesions or 2-3 weeks after an exposure. Clinical correlation is required. Hemoglobin A1C 4.3 - 5.6 % 9.5 (H) Estimated Average Glucose mg/dL 226 TSH 0.270 - 4.200 mIU/L 2.450 Vitamin B12 232 - 1,245 pg/mL 930 Folate >4.7 ng/mL 13.6 Legend: (H) High (L) Low Assessment and Plan: Assessment Mr. 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 The following are the current problems noted and addressed during this visit: Impairment of balance (primary encounter diagnosis) Plan 09/04/2024 Visit: 1. Impairment of balance (R26.89) - Patient experiences occasional falls, approximately a few times per year, often on sloped surfaces. 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 Discussed potential surgical intervention (ventriculoperitoneal shunt) to address ventricular enlargement, but current gait does not warrant surgicalrisk. Lumbar drain testing is unlikely to produce improvement since his speed and stability are reasonable for now - Advised continuation of physical therapy at [place] with [facility] to improve balance and gait stability. - Recommended monitoring for any worsening of gait or balance issues; follow-up in May upon returning from [place] unless symptoms deteriorate, in which case an earlier appointment is advised. 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 He is not parkinsonian at this time. Updated Movement Disorders Medication Schedule: Medications Return at or around: 06/04/25 Thank you for allowing me to be part of the clinical care of this patient! I look forward to continued participation in the patient s care with you. Please do not hesitate to call with any questions. Sincerely, Janeen Goodman MD documented in this encounterOur [facility] Of [facility]cy [facility]06-04-2025 NoteHNO ID: [id number] Author: NAHEED BECERRA PTA Service: ? Author Type: Glove Turner And Former Automatic Type: Progress Notes Filed: 08/13/2024 15:32 Note Text: Episode Visit Count: 6 Therapist That Will Accept/Oversee The Plan Of Care: Edmond Saavedra PT, JUAN MANUEL Start of Care Date: 07/16/24 Onset Date: 12/14/22 (Prior history of CVA, had PT last year in 2023) Plan of Care Certification Date: 07/16/24 Next Certification Due Date: 09/05/24 Patient Identified by Name and Date of : Yes REHABILITATION AND SPORTS THERAPY PHYSICAL THERAPY TREATMENT NOTE ASSESSMENT: Ronnie Lee tolerated the session with no issues. He demonstrated the need for cues for technique with exercises and slowing his speed also. The patient will continue to benefit from ongoing skilled physical therapy to progress toward set goals. PLAN FOR NEXT VISIT: Progress with further standing balance exercises. Progress gait activities in parallel bars, closed chain step ups, resisted ambulation, Recumbent Stepper, Shuttle when indicated. SUBJECTIVE: Patient denies any problems, falls, or pain recently. Pain: Pain Pain Level: 0 Post Treatment Pain Post Treatment Pain Level: 0 OBJECTIVE MEASURES WITH LEVEL OF FUNCTION: No objective measures taken this date. Vitals Pulse: 89 SpO2: 98 % TREATMENT: Therapeutic Exercise: 1: Seated resisted hip abduction with green band x 30 2: Seated resisted alternate LE marching with 2# and green band x 30 3: Seated adduction x 30 reps 4: Seated LAQ 2# 2 x 15 reps each LE 5: Seated resisted knee flexion 2 x 15 reps each LE with 2# and green band 6: Standing heel to toe raises x 30 with 2# 7: Shuttle with wedge bilateral 43# 2 x 15 reps 8: Shuttle with wedge unilateral 25# 2 x 15 reps each LE 9: Recumbent stepper manual L1 x 5 minutes Skilled Intervention: Patient was educated in proper exercise technique and purpose for exercises. Skilled judgment was used in selection of appropriate interventions. Neuromuscular Re-Education: 1: Alternate toe taps 6 2 x 1 min with UE support as needed 2: Forward step through 6 2 x 10 reps each 3: Sidestepping in // bars x 3 laps down and back with cues for technique and pace 4: High knee lift marching in // bars x 3 laps down and back 5: Floor ladder x 2 laps forward with one foot per space, lateral stepping x 2 laps, forward stepping placing each LE into the space x 2 laps down and back 6: Resisted ambulation 17.5# x 5 laps forward and backward each with CGA for safety and cues for slowing pace Skilled Intervention: Ensured patient safety with use of gait belt and CGA Billing Therapeutic Exercise Treatment Minutes: 30 Neuromuscular Re-Education Treatment Minutes: 15 Skilled Treatment Time Minutes (timed and untimed codes): 45 Total Session Time (minutes): 45 Session Start Time : 1447 Session Stop Time : 1532 Time spent on recumbent stepper not included in billed treatment time. [facility] [place] History of Present illness Narrative* Naheed Becerra, [facility] - 08/13/2024 2:47 PM EDT Episode Visit Count: 6 Therapist That Will Accept/Oversee The Plan Of Care: Edmond Saavedra, PT, JUAN MANUEL Start of Care Date: 07/16/24 Onset Date: 12/14/22 (Prior history of CVA, had PT last year in 2023) Plan of Care Certification Date: 07/16/24 Next Certification Due Date: 09/05/24 Patient Identified by Name and Date of : Yes REHABILITATION AND SPORTS THERAPY PHYSICAL THERAPY TREATMENT NOTE ASSESSMENT: Bennykim Luigi Lee tolerated the session with no issues. He demonstrated the need for cues for technique with exercises and slowing his speed also. The patient will continue to benefit fromongoing skilled physical therapy to progress toward set goals. PLAN FOR NEXT VISIT: Progress with further standing balance exercises. Progress gait activities in parallel bars, closedchain step ups, resisted ambulation, Recumbent Stepper, Shuttle when indicated. SUBJECTIVE: Patient denies any problems, falls, or pain recently. Pain: Pain Pain Level: 0 Post Treatment Pain Post Treatment Pain Level: 0 OBJECTIVE MEASURES WITH LEVEL OF FUNCTION: No objective measures taken this date. Vitals Pulse: 89 SpO2: 98 % TREATMENT: Therapeutic Exercise: 1: Seated resisted hip abduction with green band x 30 2: Seated resisted alternate LE marching with 2# and green band x 30 3: Seated adduction x 30 reps 4: Seated LAQ 2# 2 x 15 reps each LE 5: Seated resisted knee flexion 2 x 15 reps each LE with 2# and green band 6: Standing heel to toe raises x 30 with 2# 7: Shuttle with wedge bilateral 43# 2 x 15 reps 8: Shuttle with wedge unilateral 25# 2 x 15 reps each LE 9: Recumbent stepper manual L1 x 5 minutes Skilled Intervention: Patient was educated in proper exercise technique and purpose for exercises. Skilled judgment was used in selection of appropriate interventions. Neuromuscular Re-Education: 1: Alternate toe taps 6 2 x 1 min with UE support as needed 2: Forward step through 6 2 x 10 reps each 3: Sidestepping in // bars x 3 laps down and back with cues for technique and pace 4: High knee lift marching in // bars x 3 laps down and back 5: Floor ladder x 2 laps forward with one foot per space, lateral stepping x 2 laps, forward stepping placing each LE into the space x 2 laps down and back 6: Resisted ambulation 17.5# x 5 laps forward and backward each with CGA for safety and cues for slowing pace Skilled Intervention: Ensured patient safety with use of gait belt and CGA Billing Therapeutic Exercise Treatment Minutes: 30 Neuromuscular Re-Education Treatment Minutes: 15 Skilled Treatment Time Minutes (timed and untimed codes): 45 Total Session Time (minutes): 45 Session Start Time : 1447 Session Stop Time : 1532 Time spent on recumbent stepper not included in billed treatment time. Naheed Becerra PTA documented in this encounter[address]28-2025 NoteHNO ID: [id number] Author: NAHEED EBCERRA PTA Service: ? Author Type: Glove Turner And Former Automatic Type: Progress Notes Filed: 08/06/2024 15:44 Note Text: Episode Visit Count: 5 Therapist That Will Accept/Oversee The Plan Of Care: Edmond Saavedra, PT, JUAN MANUEL Start of Care Date: 07/16/24 Onset Date: 12/14/22 (Prior history of CVA, had PT last year in 2023) Plan of Care Certification Date: 07/16/24 Next Certification Due Date: 09/05/24 Patient Identified by Name and Date of : Yes REHABILITATION AND SPORTS THERAPY PHYSICAL THERAPY TREATMENT NOTE ASSESSMENT: Ronnie Lee tolerated the session with no issues. He demonstrated tolerance to progression of balance activities and increased strengthening with 2# with seated exercises. The patient will continue to benefit from ongoing skilled physical therapy to progress toward set goals. PLAN FOR NEXT VISIT: Progress with further standing balance exercises. Progress gait activities in parallel bars, closed chain step ups, resisted ambulation, Recumbent Stepper, Shuttle when indicated. SUBJECTIVE: Patient reported that he is doing well and denied recent falls or LOB. Pain: Pain Pain Level: 0 Post Treatment Pain Post Treatment Pain Level: 0 OBJECTIVE MEASURES WITH LEVEL OF FUNCTION: No objective measures taken this date. Vitals Pulse: 83 (Increased to 100 with activity) SpO2: 98 % (96-98% throughout even with activity) TREATMENT: Therapeutic Exercise: 1: Seated resisted hip abduction with green band x 30 2: Seated resisted alternate LE marching with 2# and green band x 30 (Added 2#) 3: Seated adduction x 30 reps 4: Seated LAQ 2# 2 x 15 reps each LE (Added 2#) 5: Seated resisted knee flexion 2 x 15 reps each LE with 2# and green band (Added 2#) 6: Standing heel to toe raises x 30 with 2# (Added 2#) 7: Shuttle with wedge bilateral 43# 2 x 15 reps 8: Shuttle with wedge unilateral 25# 2 x 15 reps each LE 9: Recumbent stepper manual L1 x 5 minutes Skilled Intervention: Patient was educated in proper exercise technique and purpose for exercises. Skilled judgment was used in selection of appropriate interventions. Neuromuscular Re-Education: 1: Altnernate toe taps 6 2 x 1 min with UE support as needed 2: Forward step through 6 2 x 10 reps each 3: Sidestepping in // bars x 3 laps down and back with cues for technique and pace 4: High knee lift marching in // bars x 3 laps down and back 5: Floor ladder x 2 laps forward with one foot per space, lateral stepping x 2 laps, forward stepping placing each LE into the space x 2 laps down and back 6: Resisted ambulation 17.5# x 5 laps forward and backward each with CGA for safety and cues for slowing pace Skilled Intervention: Ensured patient safety with use of CGA and gait belt Billing Therapeutic Exercise Treatment Minutes: 25 Neuromuscular Re-Education Treatment Minutes: 15 Skilled Treatment Time Minutes (timed and untimed codes): 40 Total Session Time (minutes): 45 Session Start Time : 1147 Session Stop Time : 1232 Time spent on recumbent stepper not included in billed treatment time. [facility] [place] History of Present illness Narrative* Naheed Becerra, [facility] - 08/06/2024 11:42 AM EDT Episode Visit Count: 5 Therapist That Will Accept/Oversee The Plan Of Care: Edmond Saavedra PT, JUAN MANUEL Start of Care Date: 07/16/24 Onset Date: 12/14/22 (Prior history of CVA, had PT last year in 2023) Plan of Care Certification Date: 07/16/24 Next Certification Due Date: 09/05/24 Patient Identified by Name and Date of : Yes REHABILITATION AND SPORTS THERAPY PHYSICAL THERAPY TREATMENT NOTE ASSESSMENT: Bennykim Luigi Lee tolerated the session with no issues. He demonstrated tolerance to progression of balance activities and increased strengthening with 2# with seated exercises. The patient will continue to benefit from ongoing skilled physical therapy to progress toward set goals. PLAN FOR NEXT VISIT: Progress with further standing balance exercises. Progress gait activities in parallel bars, closedchain step ups, resisted ambulation, Recumbent Stepper, Shuttle when indicated. SUBJECTIVE: Patient reported that he is doing well and denied recent falls or LOB. Pain: Pain Pain Level: 0 Post Treatment Pain Post Treatment Pain Level: 0 OBJECTIVE MEASURES WITH LEVEL OF FUNCTION: No objective measures taken this date. Vitals Pulse: 83 (Increased to 100 with activity) SpO2: 98 % (96-98% throughout even with activity) TREATMENT: Therapeutic Exercise: 1: Seated resisted hip abduction with green band x 30 2: Seated resisted alternate LE marching with 2# and green band x 30 (Added 2#) 3: Seated adduction x 30 reps 4: Seated LAQ 2# 2 x 15 reps each LE (Added 2#) 5: Seated resisted knee flexion 2 x 15 reps each LE with 2# and green band (Added 2#) 6: Standing heel to toe raises x 30 with 2# (Added 2#) 7: Shuttle with wedge bilateral 43# 2 x 15 reps 8: Shuttle with wedge unilateral 25# 2 x 15 reps each LE 9: Recumbent stepper manual L1 x 5 minutes Skilled Intervention: Patient was educated in proper exercise technique and purpose for exercises. Skilled judgment was used in selection of appropriate interventions. Neuromuscular Re-Education: 1: Altnernate toe taps 6 2 x 1 min with UE support as needed 2: Forward step through 6 2 x 10 reps each 3: Sidestepping in // bars x 3 laps down and back with cues for technique and pace 4: High knee lift marching in // bars x 3 laps down and back 5: Floor ladder x 2 laps forward with one foot per space, lateral stepping x 2 laps, forward stepping placing each LE into the space x 2 laps down and back 6: Resisted ambulation 17.5# x 5 laps forward and backward each with CGA for safety and cues for slowing pace Skilled Intervention: Ensured patient safety with use of CGA and gait belt Billing Therapeutic Exercise Treatment Minutes: 25 Neuromuscular Re-Education Treatment Minutes: 15 Skilled Treatment Time Minutes (timed and untimed codes): 40 Total Session Time (minutes): 45 Session Start Time : 1147 Session Stop Time : 1232 Time spent on recumbent stepper not included in billed treatment time. Naheed Becerra PTA [facility] NoteHNO ID: [id number] Author: NAHEED BECERRA PTA Service: ? Author Type: Glove Turner And Former Automatic Type: Progress Notes Filed: 07/31/2024 11:58 Note Text: Episode Visit Count: 4 Therapist That Will Accept/Oversee The Plan Of Care: Edmond Saavedra, PT, JUAN MANUEL Start of Care Date: 07/16/24 Onset Date: 12/14/22 (Prior history of CVA, had PT last year in 2023) Plan of Care Certification Date: 07/16/24 Next Certification Due Date: 09/05/24 Patient Identified by Name and Date of : Yes REHABILITATION AND SPORTS THERAPY PHYSICAL THERAPY TREATMENT NOTE ASSESSMENT: Ronnie Lee tolerated the session with no issues. He demonstrated good tolerance with addition of single leg shuttle. Patient required CGA->moderate assistance for maintaining balance with eyes closed with patient leaning left with modified tandem stance. The patient will continue to benefit from ongoing skilled physical therapy to progress toward set goals. PLAN FOR NEXT VISIT: Progress with further standing balance exercises. Progress gait activities in parallel bars, closed chain step ups, resisted ambulation, Recumbent Stepper, Shuttle when indicated. SUBJECTIVE: Patient denied any recent falls and denies pain. Pain: Pain Pain Level: 0 Post Treatment Pain Post Treatment Pain Level: 0 OBJECTIVE MEASURES WITH LEVEL OF FUNCTION: Vitals Pulse: 85 (106 highest with activty) SpO2: 98 % TREATMENT: Therapeutic Exercise: 1: Seated resisted hip abduction with green band x 30 2: Seated resisted alternate LE marching with green band x 30 3: Seated adduction x 30 reps 4: Seated LAQ 2 x 15 reps each LE (Increased reps) 5: Seated resisted knee flexion 2 x 15 reps each LE (Increased reps) 6: Standing heel to toe raises x 30 7: Shuttle with wedge bilateral 43# 2 x 15 reps 8: Shuttle with wedge unilateral 25# 2 x 15 reps each LE Skilled Intervention: Patient was educated in proper exercise technique and purpose for exercises. Skilled judgment was used in selection of appropriate interventions. Neuromuscular Re-Education: 1: Standing SLS with 2 fingertips each hand or one hand for support x 3 each LE, hold 10 seconds each 2: Forward step ups 6 2 x 10 reps each 3: Sidestepping in // bars x 3 laps down and back with cues for technique and pace 4: High knee lift marching in // bars x 3 laps down and back 5: NBOS on blue airex with hands at sides and EC 2 x 15 sec with CGA->minimal assist for safety 6: Modified tandem on blue airex with hands at sides with eyes closed 2 x 15 sec and CGA->minimal assistance 7: NBOS on blue airex push pull orange ball 2 x 10 reps Skilled Intervention: Ensured patient safety with use of CGA and up to moderate assistance for maintaining balance with balance activities with eyes closed. Billing Therapeutic Exercise Treatment Minutes: 25 Neuromuscular Re-Education Treatment Minutes: 20 Skilled Treatment Time Minutes (timed and untimed codes): 45 Total Session Time (minutes): 45 Session Start Time : 1105 Session Stop Time : 1150 [facility] [place]16-[facility] NoteHNO ID: [id number] Author: EDMOND SAAVEDRA PT Service: ? Author Type: Glove Turner And Former Automatic Type: Progress Notes Filed: 07/25/2024 15:53 Note Text: Episode Visit Count: 3 Therapist That Will Accept/Oversee The Plan Of Care: Edmond Saavedra PT, JUAN MANUEL Start of Care Date: 07/16/24 Onset Date: 12/14/22 (Prior history of CVA, had PT last year in 2023) Plan of Care Certification Date: 07/16/24 Next Certification Due Date: 09/05/24 Patient Identified by Name and Date of : Yes REHABILITATION AND SPORTS THERAPY PHYSICAL THERAPY TREATMENT NOTE ASSESSMENT: Bennykim Luigi Lee tolerated the session with no issues. He demonstrated the need for CGA->minimal assistance for balance activities when is eyes are closed. The patient will continue to benefit from ongoing skilled physical therapy to progress toward set goals. PLAN FOR NEXT VISIT: Progress with further standing balance exercises. Progress gait activities in parallel bars, closed chain step ups, resisted ambulation, Recumbent Stepper, Shuttle when indicated. SUBJECTIVE: Patient without complaints. Pain: Pain Pain Level: 0 Post Treatment Pain Post Treatment Pain Level: 0 OBJECTIVE MEASURES WITH LEVEL OF FUNCTION: Vitals Pulse: 88 (Increased to 96 after activity) SpO2: 98 % (98-99% throughout session) TREATMENT: Therapeutic Exercise: 1: Seated resisted hip abduction with green band x 30 2: Seated resisted alternate LE marching with green band x 30 3: Seated adduction x 30 reps 4: Seated LAQ 2 x 10 reps each LE 5: Seated resisted knee flexion 2 x 10 reps each LE 6: Shuttle with wedge bilateral 43# 2 x 15 reps 7: Standing heel to toe raises x 30 Skilled Intervention: Skilled judgment was used in selection of appropriate interventions. Neuromuscular Re-Education: 1: Standing SLS with 2 fingertips each hand or one hand for support x 3 each LE, hold 10 seconds each 2: Forward step ups 6 2 x 10 reps each 3: Sidestepping in // bars x 3 laps down and back with cues for technique and pace 4: High knee lift marching in // bars x 3 laps down and back 5: NBOS on blue airex with hands at sides and EC 2 x 15 sec with CGA->minimal assist for safety 6: Modified tandem on blue airex with hands at sides with eyes closed 2 x 15 sec and CGA->minimal assistance 7: NBOS on blue airex push pull orange ball 2 x 10 reps Skilled Intervention: Ensured patient safety with use of gait belt and CGA->minimal assistance Billing Therapeutic Exercise Treatment Minutes: 23 Neuromuscular Re-Education Treatment Minutes: 22 Skilled Treatment Time Minutes (timed and untimed codes): 45 Total Session Time (minutes): 45 Session Start Time : 1104 Session Stop Time : 1149 [facility]Saint [facility] [place]-16-[facility] History of Present illness Narrative* Naheed Becerra, [facility] 07/25/2024 11:03 AM EDT Episode Visit Count: 3 Therapist That Will Accept/Oversee The Plan Of Care: Edmond Saavedra PT, JUAN MANUEL Start of Care Date: 07/16/24 Onset Date: 12/14/22 (Prior history of CVA, had PT last year in 2023) Plan of Care Certification Date: 07/16/24 Next Certification Due Date: 09/05/24 Patient Identified by Name and Date of : Yes REHABILITATION AND SPORTS THERAPY PHYSICAL THERAPY TREATMENT NOTE ASSESSMENT: Bennykim Luigi Lee tolerated the session with no issues. He demonstrated the need for CGA->minimal assistance for balance activities when is eyes are closed. The patient will continue tobenefit from ongoing skilled physical therapy to progress toward set goals. PLAN FOR NEXT VISIT: Progress with further standing balance exercises. Progress gait activities in parallel bars, closedchain step ups, resisted ambulation, Recumbent Stepper, Shuttle when indicated. SUBJECTIVE: Patient without complaints. Pain: Pain Pain Level: 0 Post Treatment Pain Post Treatment Pain Level: 0 OBJECTIVE MEASURES WITH LEVEL OF FUNCTION: Vitals Pulse: 88 (Increased to 96 after activity) SpO2: 98 % (98-99% throughout session) TREATMENT: Therapeutic Exercise: 1: Seated resisted hip abduction with green band x 30 2: Seated resisted alternate LE marching with green band x 30 3: Seated adduction x 30 reps 4: Seated LAQ 2 x 10 reps each LE 5: Seated resisted knee flexion 2 x 10 reps each LE 6: Shuttle with wedge bilateral 43# 2 x 15 reps 7: Standing heel to toe raises x 30 Skilled Intervention: Skilled judgment was used in selection of appropriate interventions. Neuromuscular Re-Education: 1: Standing SLS with 2 fingertips each hand or one hand for support x 3 each LE, hold 10 seconds each 2: Forward step ups 6 2 x 10 reps each 3: Sidestepping in // bars x 3 laps down and back with cues for technique and pace 4: High knee lift marching in // bars x 3 laps down and back 5: NBOS on blue airex with hands at sides and EC 2 x 15 sec with CGA->minimal assist for safety 6: Modified tandem on blue airex with hands at sides with eyes closed 2 x 15 sec and CGA->minimal assistance 7: NBOS on blue airex push pull orange ball 2 x 10 reps Skilled Intervention: Ensured patient safety with use of gait belt and CGA- >minimal assistance Billing Therapeutic Exercise Treatment Minutes: 23 Neuromuscular Re-Education Treatment Minutes: 22 Skilled Treatment Time Minutes (timed and untimed codes): 45 Total Session Time (minutes): 45 Session Start Time : 1104 Session Stop Time : 1149 Naheed Becerra PTA documented in this encounterOur [facility]05-14-2025 NoteHNO ID: [id number] Author: YA MOREL APRN.HEATING AND BLENDING SUPERVISOR Service: ? Author Type: Nurse Practitioner Type: Progress Notes Filed: 07/23/2024 18:25 Note Text: This is a 83 year old male who presents today with: Ed is an 83-year-old male with a history of diabetes mellitus, presenting for follow-up. HISTORY OF PRESENT ILLNESS: Diabetes Mellitus: - Recent A1c was elevated. - Started on Jardiance last month; denies noticing any difference. - Denies polyuria. - Denies monitoring blood glucose levels at home. - Denies following a specific diet; consumes what he desires. - Denies symptoms of hypoglycemia. - Denies any issues with Jardiance. - Continues to take other diabetic medications. - Recent eye exam with Ophthalmology within the last month. 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 Hyperlipidemia Impacted cerumen TN (myocardial infarction) ([facility]) , , '03, '04 Pneumonia 03/08/2011 PAST SURGICAL HISTORY Procedure Laterality Date ANGIOPLASTY 02/2004 with stents ARTHRP ACETBLR/PROX FEM PROSTC AGRFT/ALGRFT Right CABG (2) VEIN GRAFTS AND ARTERIAL GRAFT(S 09/09/1997 COLONOSCOPY 07/26/2022 COLONOSCOPY SCREENING 08/09/2022 Dr Du CORONARY ARTERY DILATION 03/12/2010 3 stents EGD 07/26/2022 IMPLANTABLE CARDIOVERTER DEFIBRILLATOR 09/05/2010 duel chamber REMV CATARACT EXTRACAP,INSERT LENS Bilateral ALLERGIES Avandamet [Rosiglitazone-Metformin], Iodine, Oxycodone, and Promethazine-Codeine MEDICATIONS Current Outpatient Medications Medication Sig empagliflozin (JARDIANCE) 10 mg tablet Take 1 tablet by mouth daily with breakfast. SITagliptin-metFORMIN (JANUMET) 50-1,000 mg per tablet Take 1 tablet in the morning and 1/2 tablet in the evening. pantoprazole DR (PROTONIX) 40 mg tablet Take 1 tablet by mouth once daily. losartan (COZAAR) 50 mg tablet Take 50 mg by mouth once daily. ferrous sulfate 325 mg (65 mg iron) tablet Take 325 mg by mouth every other day. rosuvastatin (CRESTOR) 5 mg tablet Take 5 mg by mouth once daily. (Patient taking differently: Take 5 mg by mouth two times a day.) OTC PRODUCT 1,000 mg twice daily. Tumeric complex Lancets lancets Test blood sugar(s) 1 times daily. Dx: Type 2 DM - Controlled E11.9 Insulin: No blood sugar diagnostic (BLOOD GLUCOSE TEST) test strip Test blood sugar(s) 1 times daily. Dx: Type 2 DM - Controlled E11.9 Insulin: No sotalol (BETAPACE) 80 mg tablet Take 1 1/2 tablets by mouth twice daily. apixaban (ELIQUIS) 5 mg tab(s) Take 5 mg by mouth twice daily. cyanocobalamin (VITAMIN B-12) 1,000 mcg tab Take 1,000 mcg by mouth once daily. VITAMIN B COMPLEX-100 ORAL Take 1 tablet by mouth once daily. clopidogrel (PLAVIX) 75 mg tablet Take 75 mg by mouth once daily. UBIDECARENONE (COQ-10 ORAL) Take 400 mg by mouth once daily. No current facility-administered medications for this visit. FAMILY HISTORY Problem Relation Age of Onset Heart Father Cancer Mother Diabetes Sister Diabetes Other Diabetes Other Diabetes Daughter prediabetic Social History Tobacco Use Smoking status: Never Smokeless tobacco: Never Vaping Use Vaping status: Never Used Substance Use Topics Alcohol use: No Drug use: No REVIEW OF SYSTEMS Cardiovascular: (-) chest pain, (-) foot/ankle swelling Respiratory: (+) shortness of breath Genitourinary: (-) urinary changes EXAM: BP 116/82 Pulse 71 Resp 16 SpO2 99% PHYSICAL EXAM: General Appearance: Well appearing, alert, in no acute distress, well-hydrated, well nourished.. Skin: Skin color, texture, turgor normal, no suspicious rashes or lesions. Head: Normocephalic, no masses, lesions, tenderness or abnormalities. Eyes: Anicteric sclera.Extraocular movements are intact. . Lungs: Lungs clear to auscultation. No wheezing, rhonchi, rales.. Heart: Positive findings: irregularly irregular rhythm. Extremities: No deformities, edema, skin discoloration, clubbing or cyanosis. Good capillary refill. . Neurologic: SAVOONGA. Answers questions appropriately. ASSESSMENT/PLAN 1. Type 2 diabetes mellitus with stage 3 chronic kidney disease, without long-term current use of insulin, unspecified whether stage 3a or 3b CKD (HCC) (E11.22) - Recent A1c was elevated; initiated on Jardiance approximately a month ago. - No adverse effects reported from Jardiance; patient denies polyuria. - Patient not monitoring blood glucose levels at home. - Educated on the mechanism of action of Jardiance, emphasizing its role in glycosuria. - Advised on dietary modifications to reduce carbohydrate and sugar intake. - Ordered repeat lab work to assess renal function - Scheduled follow-up in 3 months for A1c re (more content not included)... [facility]05-14-2025 History of Present illness Narrative* Ya Morel APRN.HEATING AND BLENDING SUPERVISOR - 07/23/2024 6:20 PM EDT This is a 83 year old male who presents today with: Ed is an 83-year-old male with a history of diabetes mellitus, presenting for follow-up. HISTORY OF PRESENT ILLNESS: Diabetes Mellitus: - Recent A1c was elevated. - Started on Jardiance last month; denies noticing any difference. - Denies polyuria. - Denies monitoring blood glucose levels at home. - Denies following a specific diet; consumes what he desires. - Denies symptoms of hypoglycemia. - Denies any issues with Jardiance. - Continues to take other diabetic medications. - Recent eye exam with Ophthalmology within the last month. 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 Hyperlipidemia Impacted cerumen [place] (myocardial infarction) (FORMERLY [facility]) '93, '98, '03, '04 Pneumonia 03/08/2011 PAST SURGICAL HISTORY Procedure Laterality Date ANGIOPLASTY 02/2004 with stents ARTHRP ACETBLR/PROX FEM PROSTC AGRFT/ALGRFT Right CABG (2) VEIN GRAFTS & ARTERIAL GRAFT(S 09/09/1997 COLONOSCOPY 07/26/2022 COLONOSCOPY SCREENING 08/09/2022 Dr Du CORONARY ARTERY DILATION 03/12/2010 3 stents EGD 07/26/2022 IMPLANTABLE CARDIOVERTER DEFIBRILLATOR 09/05/2010 duel chamber REMV CATARACT EXTRACAP,INSERT LENS Bilateral ALLERGIES Avandamet [Rosiglitazone-Metformin], Iodine, Oxycodone, and Promethazine-Codeine MEDICATIONS Current Outpatient Medications Medication Sig empagliflozin (JARDIANCE) 10 mg tablet Take 1 tablet by mouth daily with breakfast. SITagliptin-metFORMIN (JANUMET) 50-1,000 mg per tablet Take 1 tablet in the morning and 1/2 tablet in the evening. pantoprazole DR (PROTONIX) 40 mg tablet Take 1 tablet by mouth once daily. losartan (COZAAR) 50 mg tablet Take 50 mg by mouth once daily. ferrous sulfate 325 mg (65 mg iron) tablet Take 325 mg by mouth every other day. rosuvastatin (CRESTOR) 5 mg tablet Take 5 mg by mouth once daily. (Patient taking differently: Take5 mg by mouth two times a day.) OTC PRODUCT 1,000 mg twice daily. Tumeric complex Lancets lancets Test blood sugar(s) 1 times daily. Dx: Type 2 DM - Controlled E11.9 Insulin: No blood sugar diagnostic (BLOOD GLUCOSE TEST) test strip Test blood sugar(s) 1 times daily. Dx: Type 2 DM - Controlled E11.9 Insulin: No sotalol (BETAPACE) 80 mg tablet Take 1 1/2 tablets by mouth twice daily. apixaban (ELIQUIS) 5 mg tab(s) Take 5 mg by mouth twice daily. cyanocobalamin (VITAMIN B-12) 1,000 mcg tab Take 1,000 mcg by mouth once daily. VITAMIN B COMPLEX-100 ORAL Take 1 tablet by mouth once daily. clopidogrel (PLAVIX) 75 mg tablet Take 75 mg by mouth once daily. UBIDECARENONE (COQ-10 ORAL) Take 400 mg by mouth once daily. No current facility-administered medications for this visit. FAMILY HISTORY Problem Relation Age of Onset Heart Father Cancer Mother Diabetes Sister Diabetes Other Diabetes Other Diabetes Daughter prediabetic Social History Tobacco Use Smoking status: Never Smokeless tobacco: Never Vaping Use Vaping status: Never Used Substance Use Topics Alcohol use: No Drug use: No REVIEW OF SYSTEMS Cardiovascular: (-) chest pain, (-) foot/ankle swelling Respiratory: (+) shortness of breath Genitourinary: (-) urinary changes EXAM: BP 116/82 Pulse 71 Resp 16 SpO2 99% PHYSICAL EXAM: General Appearance: Well appearing, alert, in no acute distress, well-hydrated, well nourished.. Skin: Skin color, texture, turgor normal, no suspicious rashes or lesions. Head: Normocephalic, no masses, lesions, tenderness or abnormalities. Eyes: Anicteric sclera.Extraocular movements are intact. . Lungs: Lungs clear to auscultation. No wheezing, rhonchi, rales.. Heart: Positive findings: irregularly irregular rhythm. Extremities: No deformities, edema, skin discoloration, clubbing or cyanosis. Good capillary refill. . Neurologic: SAVOONGA. Answers questions appropriately. ASSESSMENT/PLAN 1. Type 2 diabetes mellitus with stage 3 chronic kidney disease, without long- term current use of insulin, unspecified whether stage 3a or 3b CKD (HCC) (E11.22) - Recent A1c was elevated; initiated on Jardiance approximately a month ago. - No adverse effects reported from Jardiance; patient denies polyuria. - Patient not monitoring blood glucose levels at home. - Educated on the mechanism of action of Jardiance, emphasizing its role in glycosuria. - Advised on dietary modifications to reduce carbohydrate and sugar intake. - Ordered repeat lab work to assess renal function - Scheduled follow-up in 3 months for A1c re-evaluation to assess efficacy of Jardiance. Discussed treatment plan and patient voices understanding. Patient's questions answered appropriately. Medications and potential side effects were discussed and patient voices understanding. Return to the office as scheduled or as needed for worsening/no improvement. Ya Morel APRN.HEATING AND BLENDING SUPERVISOR Recording using [employer] software for draft documentation of the visit was discussed with the patient/authorized personal financial representative; all questions welcomed and answered. Patient/authorized personal financial representative agreed to proceed documented in this encounterOur [facility] History of Present illness Narrative* Naheed Becerra PTA - 07/23/2024 2:31 PM EDT Program_ID:[id number] Access Code: [email or web address] URL: [email or web address] Date: 07-23-2024 Prepared By: Marce Mann Program Notes Exercises - Seated Hip Adduction Isometrics with Ball - 1 x daily - 7 x weekly - 2 sets - 15 reps - Seated Long Arc Quad - 1 x daily - 7 x weekly - 2 sets - 15 reps * Naheed Becerra PTA - 07/23/2024 1:26 PM EDT Episode Visit Count: 2 Therapist That Will Accept/Oversee The Plan Of Care: Edmond Saavedra PT, JUAN MANUEL Start of Care Date: 07/16/24 Onset Date: 12/14/22 (Priro history of CVA, had PT last year in 2023) Plan of Care Certification Date: 07/16/24 Next Certification Due Date: 09/05/24 Patient Identified by Name and Date of : Yes REHABILITATION AND SPORTS THERAPY PHYSICAL THERAPY TREATMENT NOTE ASSESSMENT: Ronnie Lee tolerated the session with no issues. He demonstrated tolerance to addition of balance activities and progression of LE strengthening. Patient does require CGA for safetywith balance activities. The patient will continue to benefit from ongoing skilled physical therapyto progress toward set goals. PLAN FOR NEXT VISIT: Progress with further standing balance exercises next session. May initiate gait activities in parallel bars, closed chain step ups, resisted ambulation, Recumbent Stepper, Shuttle when indicated. SUBJECTIVE: Patient reported that he has been performing his HEP. Denies recent falls Pain: Pain Pain Level: 0 Post Treatment Pain Post Treatment Pain Level: 0 OBJECTIVE MEASURES WITH LEVEL OF FUNCTION: Vitals Pulse: 65 SpO2: 98 % TREATMENT: Therapeutic Exercise: 1: Seated resisted hip abduction with green band x 30 2: Seated resisted alternate LE marching with green band x 30 3: *Seated adduction x 30 reps 4: *Seated LAQ 2 x 10 reps each LE 5: Standing heel to toe raises x 30 6: Shuttle with wedge bilateral 43# 2 x 15 reps Skilled Intervention: Patient was educated in proper exercise technique and purpose for exercises. Reviewed and educated patient on additions/changes for home exercise program as above (*). Skilled judgment was used in selection of appropriate interventions. Neuromuscular Re-Education: 1: Standing SLS with 2 fingertips each hand or one hand for support x 3 each LE, hold 10 seconds each 2: Forward step ups 6 2 x 10 reps each 3: Sidestepping in // bars x 3 laps down and back with cues for technique and pace 4: High knee lift marching in // bars x 3 laps down and back 5: NBOS with hands at sides and EC 2 x 15 sec with CGA for safety 6: Modified tandem with hands at sides with eyes closed 2 x 15 sec and CGA Skilled Intervention: Skilled judgment used to assess appropriate program for balance and coordination activity. Ensured patient safety with use of gait belt and CGA Billing Therapeutic Exercise Treatment Minutes: 25 Neuromuscular Re-Education Treatment Minutes: 20 Skilled Treatment Time Minutes (timed and untimed codes): 45 Total Session Time (minutes): 45 Session Start Time : 1330 Session Stop Time : 1415 Naheed Becerra PTA documented in this encounterOur Lady Of Mercy [facility]05-14-2025 NoteHNO ID: [id number] Author: EDMOND SAAVEDRA PT Service: ? Author Type: Glove Turner And Former Automatic Type: Progress Notes Filed: 07/25/2024 15:53 Note Text: Episode Visit Count: 2 Therapist That Will Accept/Oversee The Plan Of Care: Edmond Saavedra PT, JUAN MANUEL Start of Care Date: 07/16/24 Onset Date: 12/14/22 (Prior history of CVA, had PT last year in 2023) Plan of Care Certification Date: 07/16/24 Next Certification Due Date: 09/05/24 Patient Identified by Name and Date of : Yes REHABILITATION AND SPORTS THERAPY PHYSICAL THERAPY TREATMENT NOTE ASSESSMENT: Ronnie Lee tolerated the session with no issues. He demonstrated tolerance to addition of balance activities and progression of LE strengthening. Patient does require CGA for safety with balance activities. The patient will continue to benefit from ongoing skilled physical therapy to progress toward set goals. PLAN FOR NEXT VISIT: Progress with further standing balance exercises next session. May initiate gait activities in parallel bars, closed chain step ups, resisted ambulation, Recumbent Stepper, Shuttle when indicated. SUBJECTIVE: Patient reported that he has been performing his HEP. Denies recent falls Pain: Pain Pain Level: 0 Post Treatment Pain Post Treatment Pain Level: 0 OBJECTIVE MEASURES WITH LEVEL OF FUNCTION: Vitals Pulse: 65 SpO2: 98 % TREATMENT: Therapeutic Exercise: 1: Seated resisted hip abduction with green band x 30 2: Seated resisted alternate LE marching with green band x 30 3: *Seated adduction x 30 reps 4: *Seated LAQ 2 x 10 reps each LE 5: Standing heel to toe raises x 30 6: Shuttle with wedge bilateral 43# 2 x 15 reps Skilled Intervention: Patient was educated in proper exercise technique and purpose for exercises. Reviewed and educated patient on additions/changes for home exercise program as above (*). Skilled judgment was used in selection of appropriate interventions. Neuromuscular Re-Education: 1: Standing SLS with 2 fingertips each hand or one hand for support x 3 each LE, hold 10 seconds each 2: Forward step ups 6 2 x 10 reps each 3: Sidestepping in // bars x 3 laps down and back with cues for technique and pace 4: High knee lift marching in // bars x 3 laps down and back 5: NBOS with hands at sides and EC 2 x 15 sec with CGA for safety 6: Modified tandem with hands at sides with eyes closed 2 x 15 sec and CGA Skilled Intervention: Skilled judgment used to assess appropriate program for balance and coordination activity. Ensured patient safety with use of gait belt and CGA Billing Therapeutic Exercise Treatment Minutes: 25 Neuromuscular Re-Education Treatment Minutes: 20 Skilled Treatment Time Minutes (timed and untimed codes): 45 Total Session Time (minutes): 45 Session Start Time : 1330 Session Stop Time : 1415 [facility] Instructions* Patient Instructions * Ya Morel APRN.CNP - 07/23/2024 11:51 AM EDT Continue taking Jardiance as prescribed, even if you do not feel a difference; it may take 3 monthsfor changes to show in your blood work. Keep taking your other diabetes medications as usual. Monitor your diet by watching your sugar and carbohydrate intake--try to limit foods like breads, pastas, and potatoes. Complete the ordered blood work, which includes a kidney function panel; you should receive your results on Sunday or Sunday. Plan to have your A1c rechecked in about 2 more months to see if the new medication is working. Continue attending your physical therapy sessions as discussed. Get the repeat A1C and follow-up with one of us in 2 months. documented in this encounterCleveland [id number] History of Present illness Narrative* Edmond Saavedra PT - 07/16/2024 2:31 PM EDT Program_ID:[id number] Access Code: [email or web address] URL: [email or web address] Date: 07-16-2024 Prepared By: Marce Mann Program Notes Exercises - Seated Hip Abduction with Resistance - 1-2 x daily - 7 x weekly - 1 sets - 30 reps - Seated Knee Lifts with Resistance - 1-2 x daily - 7 x weekly - 1 sets - 30 reps - Heel Toe Raises with Counter Support - 1-2 x daily - 7 x weekly - 1 sets - 30 reps - Standing Single Leg Stance with Counter Support - 1-2 x daily - 7 x weekly - 1 sets - 3 reps * Edmond Saavedra PT - 07/16/2024 1:40 PM EDT Episode Visit Count: 1 Therapist That Will Accept/Oversee The Plan Of Care: Edmond Saavedra PT, JUAN MANUEL Start of Care Date: 07/16/24 Onset Date: 12/14/22 (Priro history of CVA, had PT last year in 2023) Plan of Care Certification Date: 07/16/24 Next Certification Due Date: 09/05/24 Patient Identified by Name and Date of : Yes REHABILITATION AND SPORTS THERAPY PHYSICAL THERAPY EVALUATION PLAN OF CARE: Assessment: 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 Uses handrail to pull himself up the steps. Difficulty with tub transfers.) . The patient presents with impairments in ADL's, balance, gait, independence in exercise, overall function, posture, and strength. Patient did not complete the PROMIS (Patient Reported Outcome Measures Information System). Prognosis for therapy is Good due to: positive past response to therapy, good support system/ coping skills, current objective clinical presentation, Prognosis may be limited due to advanced age . Patient presents with history of 3-4 falls in the last year duration, does not utilize any assistive device with ambulation, presents with decreased bilateral LE strength, decreased balance as noted by 5x Sit to Stand, Timed Up and Go, and 4 Stage Balance Test for tandem base of support and single leg stance. The patient will benefit from skilled therapy services to meet the goals established forthis plan of care as noted below. Assessment Fall Risk : Active at risk Goals for Episode of Care: established 07/16/24 Improve score on Timed Up and Go Test to less than 10 seconds with less reliance on UE use for sit to stand transfer to reflect decreased fall risk. Improve performance on 4 Stage Balance Test to 10 seconds for tandem base of support and up to 5 seconds for single leg stance to reflect decreased fall risk. Increase strength of bilateral LE to 4+-5/5 in order to improve sit to stand transfers, tub transfers and ability to tolerate longer distance ambulation with less difficulty. Patient to be independent in home exercise program for bilateral LE strengthening and balance exercise to return patient to prior level of function and reduce overall fall risk. Patient Goals: Make me stronger and improve my balance Time Frame for Goals and Treatment : 09/05/24 Planned Interventions, Frequency, and Duration: Current Frequency: 2x/week Duration: 6 weeks Total Number of Visits Planned: 12 Planned Treatment Interventions: Therapeutic exercise (51108), Neuromuscular re- education (34638), Therapeutic activities (49719), Self-alf management (26770), Gait Training (31365), Patient/Family/Caregiver Education, General Conditioning PLAN FOR NEXT VISIT: Review HEP. Progress with further standing balance exercises next session. Mayinitiate gait activities in parallel bars, closed chain step ups, resisted ambulation, Recumbent Stepper, Shuttle when indicated. Patient demonstrates good understanding of plan of care and treatment. The above goals and plan of care were discussed and agreed upon by patient/family. SUBJECTIVE: Patient states that he has had about 3-4 falls in the last year duration and notes that he does notuse any assistive device. He is able to get himself up from his falls, but itmay take him some timeand he denies any injuries from these falls. Patient recently saw Dr. Kennedy and he referred patient to physical therapy at this time. He will see Dr. Kennedy again on 11/28/2024. Patient Goals: Make me stronger and improve my balance Functional Limitations: squatting, rising from a chair, stair negotiation, dressing, grooming (Difficulty squatting and getting back up again. Uses handrail to pull himself up the steps. Difficulty with tub transfers.) Prior Level of Function: Independent with restrictions Independent with the following restrictions: Activties affected by balance Relevant History Past Relevant Medical Conditions: Cardiac, Cerebral Vascular Accident, Diabetes, GERD, Hyperlipemia, Hypertension, Arthritis, Kidney Problems, Thyroid Disease (Defibrillator, Deaf in L ear, CAD, CHF) Past Relevant Surgical Conditions: Cardiac Cardiac Comments: Angioplasty with stents 2003, CABG x 2 1997 Employment: Retired Recreation / Current Exercise: Walk on flat [id number] minutes at 2.0-2.1 mph using arm rails for support every day per patient Hobbies / Interests: Woodworking; model trains Intake Information: Prescription present Previous Treatment: Physical Therapy Falls Interview: Two or more falls in the last year Falls Intervention: More thorough falls assessment to be performed Falls History # of falls in past year: 4 # of falls resulting in an injury in past year: 0 Pain: Pain Pain Level: 0 Post Treatment Pain Post Treatment Pain Level: 0 PROMIS Scales 07/16/2024 Higher is Better Self-Eff Symptom - T Score 35 (Low) Self-Eff Symptom - Percentile 7 Mobility - T Score 36 (moderate dysfunction) Mobility - Percentile 8 T-scores: mean of general population = 50. 5 points is clinically meaningfully difference Percentiles provide an indication of how the patient's score ranks in relation to the general population. Higher percentile rankings indicate better function/quality of life. 50th percentile is the average of the general population and indicates half of respondents had a worse score. OBJECTIVE MEASURES WITH LEVEL OF FUNCTION: Posture / Alignment Posture: Forward head, Increased thoracic kyphosis, Rounded shoulders LE Flexibility Flexibility: Hamstring Flexibility R Hamstring Flexibility: Mildly limited with seated SLR position lacking 5-10 degrees from full extension L Hamstring Flexibility: Mildly limited with seated SLR position lacking 5-10 degrees from full extension UE and Cervical Strength Strength Tested: Shoulder All R Shoulder Extension: 5/5 R Shoulder Flexion: 4+/5 R Shoulder Abduction (C5): 4+/5 R Shoulder Internal Rotation: 4+/5 R Shoulder External Rotation: 4-/5 R Elbow Extension (C7): 5/5 R Elbow Flexion (C6): 4+/5 L Shoulder Extension: 5/5 L Shoulder Flexion: 4+/5 L Shoulder Abduction (C5): 4+/5 L Shoulder Internal Rotation: 4+/5 L Shoulder External Rotation: 4-/5 L Elbow Extension (C7): 5/5 L Elbow Flexion (C6): 4+/5 LE Strength R Hip Flexion (L2): 4-/5 R Hip ABduction: (4-_4/5) R Hip ADduction: 4/5 R Knee Extension (L3): 5/5 R Knee Flexion: 4+/5 R Ankle Dorsiflexion (L4): 4/5 R Ankle Plantar Flexion: (4-4+/5) L Hip Flexion (L2): 4-/5 L Hip ABduction: (4-_4/5) L Hip ADduction: 4/5 L Knee Extension (L3): 5/5 L Knee Flexion: 4+/5 L Ankle Dorsiflexion (L4): 4/5 L Ankle Plantar Flexion: (4-4+/5) Mobility Sit To Stand: Modified Independent (Bilateral UE use on arm rests for sit to stand only) Stand To Sit: Independent Gait Weight Bearing Status: FWB Gait: Independent Gait Device: None Gait Deviations: General Deviations General Deviations/Observations: Flexed trunk posture, Narrow Base of Support, Scissoring of LEs, Trunk Control Decreased Balance Dynamic Standing Balance: Toe Walk, Heel Walk, Tandem Walking (heel to toe) Toe Walk: Using UE support on plint, lacking full bilateral ankle PF Heel Walk: Using UE support on plinth, decreased concentric and eccentric DF control Tandem Walking: Using UE support on plinth, but with good placement of feet Functional Performance Test Results 5 Times Sit to Stand Test : 19 sec (Use of bilateral UE on armrests of the chair.) Timed Up and Go (sec): 10 sec (UE use on armrest for sit to stand, initially wide base of support, cautious on turning around during test. No losses of balance noted.) 4 Stage Balance Test Narrow base of support (sec): 30 sec Semi-tandem base of support (sec): 30 sec (with R LE and L LE in lead positions each) Tandem base of support (sec): (9 seconds with R LE in front, up to 13 seconds with L LE in front) Single leg stance - right (sec): (1-2 seconds) Single leg stance - left (sec): (2-3 seconds) Education: Education Learning Preferences: Demonstration, Explanation, Performance, Printed Materials Barriers: Acuity of Illness Learning/educational needs: Safety, Home exercise program, Plan of Care, Changes in Plan of Care Education Provided: Yes, see treatment interventions for education provided Education Provided To: Patient Education Mode/Type: Demonstration, Explanation/Discussion, Literature/Printed Materials, Performance Response to Education/Teach Back: States/Identifies, Return Demonstration TREATMENT: PT Treatment Interventions: Therapeutic Exercise Evaluation Therapeutic Exercise: 1: *Seated resisted hip abduction with green band x 30 2: *Seated resited alternate LE marching with green band x 30 3: *Standing heel to toe raises x 30 4: *Standing SLS with 2 fingertips each hand or one hand for support x 3 each LE, hold 10 seconds each Skilled Intervention: Patient was educated in proper exercise technique and purpose for exercises. Skilled judgment was used in selection of appropriate interventions. Provided written instruction for home exercise program to facilitate proper performance and compliance. Correct performance of therapeutic exercises was facilitated with verbal and visual cuing. Home Exercise Program Assigned: Current Home Program: Access Code: [email or web address] URL: [email or web address] Date: 07/16/2024 Prepared by: EDMOND SAAVEDRA Exercises - Seated Hip Abduction with Resistance - 1-2 x daily- 7 x weekly - 1 sets - 30 reps - Seated Knee Lifts with Resistance - 1-2 x daily - 7 x weekly - 1 sets - 30 reps - Heel Toe Raises with Counter Support - 1-2 x daily - 7 x weekly - 1 sets - 30 reps - Standing Single Leg Stance with Counter Support - 1-2 x daily - 7 x weekly - 1 sets - 3 reps - 10 hold Billing * Evaluation Moderate Complexity: 1 Unit Therapeutic Exercise Treatment Minutes: 15 Skilled Treatment Time Minutes (timed and untimed codes): 57 Total Session Time (minutes): 57 Session Start Time : 1343 Session Stop Time : 1440 Edmond Saavedra PT, JUAN MANUEL documented in this encounterOur Lady Of Mercy [facility]05-07-[facility]25 NoteHNO ID: [id number] Author: EDMOND SAAVEDRA, ALLIE Service: ? Author Type: Physical Therapist Type: Progress Notes Filed: 07/25/2024 15:52 Note Text: Episode Visit Count: 1 Therapist That Will Accept/Oversee The Plan Of Care: Edmond Saavedra, PT, JUAN MANUEL Start of Care Date: 07/16/24 Onset Date: 12/14/22 (Prior history of CVA, had PT last year in 2023) Plan of Care Certification Date: 07/16/24 Next Certification Due Date: 09/05/24 Patient Identified by Name and Date of : Yes REHABILITATION AND SPORTS THERAPY PHYSICAL THERAPY EVALUATION PLAN OF CARE: Assessment: 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 Uses handrail to pull himself up the steps. Difficulty with tub transfers.) . The patient presents with impairments in ADL's, balance, gait, independence in exercise, overall function, posture, and strength. Patient did not complete the PROMIS? (Patient Reported Outcome Measures Information System). Prognosis for therapy is Good due to: positive past response to therapy, good support system/ coping skills, current objective clinical presentation, Prognosis may be limited due to advanced age .Patient presents with history of 3-4 falls in the last year duration, does not utilize any assistive device with ambulation, presents with decreased bilateral LE strength, decreased balance as noted by 5x Sit to Stand, Timed Up and Go, and 4 Stage Balance Test for tandem base of support and single leg stance. The patient will benefit from skilled therapy services to meet the goals established for this plan of care as noted below. Assessment Fall Risk : Active at risk Goals for Episode of Care: established 07/16/24 Improve score on Timed Up and Go Test to less than 10 seconds with less reliance on UE use for sit to stand transfer to reflect decreased fall risk. Improve performance on 4 Stage Balance Test to 10 seconds for tandem base of support and up to 5 seconds for single leg stance to reflect decreased fall risk. Increase strength of bilateral LE to 4+-5/5 in order to improve sit to stand transfers, tub transfers and ability to tolerate longer distance ambulation with less difficulty. Patient to be independent in home exercise program for bilateral LE strengthening and balance exercise to return patient to prior level of function and reduce overall fall risk. Patient Goals: Make me stronger and improve my balance Time Frame for Goals and Treatment : 09/05/24 Planned Interventions, Frequency, and Duration: Current Frequency: 2x/week Duration: 6 weeks Total Number of Visits Planned: 12 Planned Treatment Interventions: Therapeutic exercise (29564), Neuromuscular re-education (47621), Therapeutic activities (74367), Self-alf management (95910), Gait Training (91971), Patient/Family/Caregiver Education, General Conditioning PLAN FOR NEXT VISIT: Review HEP. Progress with further standing balance exercises next session. May initiate gait activities in parallel bars, closed chain step ups, resisted ambulation, Recumbent Stepper, Shuttle when indicated. Patient demonstrates good understanding of plan of care and treatment. The above goals and plan of care were discussed and agreed upon by patient/family. SUBJECTIVE: Patient states that he has had about 3-4 falls in the last year duration and notes that he does not use any assistive device. He is able to get himself up from his falls, but itmay take him some time and he denies any injuries from these falls. Patient recently saw Dr. Kennedy and he referred patient to physical therapy at this time. He will see Dr. Kennedy again on 11/28/2024. Patient Goals: Make me stronger and improve my balance Functional Limitations: squatting, rising from a chair, stair negotiation, dressing, grooming (Difficulty squatting and getting back up again. Uses handrail to pull himself up the steps. Difficulty with tub transfers.) Prior Level of Function: Independent with restrictions Independent with the following restrictions: Activties affected by balance Relevant History Past Relevant Medical Conditions: Cardiac, Cerebral Vascular Accident, Diabetes, GERD, Hyperlipemia, Hypertension, Arthritis, Kidney Problems, Thyroid Disease (Defibrillator, Deaf in L ear, CAD, CHF) Past Relevant Surgical Conditions: Cardiac Cardiac Comments: Angioplasty with stents 2003, CABG x 2 1997 Employment: Retired Recreation / Current Exercise: Walk on flat [id number] minutes at 2.0-2.1 mph using arm rails for support every day per patient Hobbies / Interests: Woodworking; model trains Intake Information: Prescription present Previous Treatment: Physical Therapy Falls Interview: Two or more falls in the last year Falls Intervention: More thorough falls assessment to be performed Falls History # of fa (more content not included)...[facility]04-29-2025 NoteHNO ID: [id number] Author: ABIGAIL MOSS, DO Service: ? Author Type: Physician Type: Progress Notes Filed: 07/08/2024 11:31 Note Text: [facility] [place] DEPARTMENT OF VASCULAR SURGERY OUTPATIENT VISIT DATE July 08, 2024 OUTPATIENT VISIT TYPE ESTABLISHED SERVICE DATE: 07/08/2024 SERVICE TIME: 11:06 AM PRIMARY CARE PHYSICIAN: Zachary Kennedy MD HISTORY OF PRESENT ILLNESS: Mr. Lee is a 83 year old male who presents today for a vascular surgery follow-up visit for peripheral arterial disease. He has a history of stroke last year while in [place]. Recently they have noticed that he isn't using his right leg as he had in the past. Unknown when weakness started. He drove down to [place] in December without difficulty. Denies rest pain or tissue loss. He had a CT head ordered by Dr. 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 Hyperlipidemia Impacted cerumen [place] (myocardial infarction) (FORM[facility]) '93, '98, '03, '04 Pneumonia 03/08/2011 PAST SURGICAL HISTORY Procedure Laterality Date ANGIOPLASTY 02/2004 with stents ARTHRP ACETBLR/PROX FEM PROSTC AGRFT/ALGRFT Right CABG (2) VEIN GRAFTS AND ARTERIAL GRAFT(S 09/09/1997 COLONOSCOPY 07/26/2022 COLONOSCOPY SCREENING 08/09/2022 Dr Du CORONARY ARTERY DILATION 03/12/2010 3 stents EGD 07/26/2022 IMPLANTABLE CARDIOVERTER DEFIBRILLATOR 09/05/2010 duel chamber REMV CATARACT EXTRACAP,INSERT LENS Bilateral SOCIAL HISTORY Social History Tobacco Use Smoking status: Never Smokeless tobacco: Never Vaping Use Vaping status: Never Used Substance Use Topics Alcohol use: No Drug use: No MEDICATIONS: empagliflozin (JARDIANCE) 10 mg tablet Take 1 tablet by mouth daily with breakfast. SITagliptin-metFORMIN (JANUMET) 50-1,000 mg per tablet Take 1 tablet in the morning and 1/2 tablet in the evening. pantoprazole DR (PROTONIX) 40 mg tablet Take 1 tablet by mouth once daily. losartan (COZAAR) 50 mg tablet Take 50 mg by mouth once daily. ferrous sulfate 325 mg (65 mg iron) tablet Take 325 mg by mouth every other day. rosuvastatin (CRESTOR) 5 mg tablet Take 5 mg by mouth once daily. (Patient taking differently: Take 5 mg by mouth two times a day.) OTC PRODUCT 1,000 mg twice daily. Tumeric complex Lancets lancets Test blood sugar(s) 1 times daily. Dx: Type 2 DM - Controlled E11.9 Insulin: No blood sugar diagnostic (BLOOD GLUCOSE TEST) test strip Test blood sugar(s) 1 times daily. Dx: Type 2 DM - Controlled E11.9 Insulin: No sotalol (BETAPACE) 80 mg tablet Take 1 1/2 tablets by mouth twice daily. apixaban (ELIQUIS) 5 mg tab(s) Take 5 mg by mouth twice daily. cyanocobalamin (VITAMIN B-12) 1,000 mcg tab Take 1,000 mcg by mouth once daily. VITAMIN B COMPLEX-100 ORAL Take 1 tablet by mouth once daily. clopidogrel (PLAVIX) 75 mg tablet Take 75 mg by mouth once daily. UBIDECARENONE (COQ-10 ORAL) Take 400 mg by mouth once daily. ALLERGIES: ALLERGIES Allergen Reactions Avandamet [Rosiglit* Intolerance refuses Iodine Anaphylaxis Oxycodone GI Upset, Vomiting Dizziness Promethazine-Codeine Intolerance Low BP, vomited PHYSICAL EXAM: BP 130/73 (BP Site: Left Arm, BP Position: Sitting, BP Cuff Size: Regular Adult) Pulse 78 SpO2 97% Gen- no distress Neuro- right leg weakness, no ulcerations or tissue loss, non palpable distal pulses Diagnostic tests reviewed for today's visit: Most recent labs Most recent imaging PVRs- unchanged- R .077, L 0.83, Carotid- bilateral ICA <50% stenosis, right innominate soft plaque noted IMPRESSION: Mr. Lee is a 83 year old male with peripheral arterial disease, right leg weakness . PLAN and RECOMMENDATIONS: Recommend continue current medications- including statin, aspirin Continue walking/exercise as tolerated He has appointment with PT for gait abnormality Follow up with me in 1 year SIGNATURE: Abigail Moss DO PATIENT NAME: Ronnie Lee DATE: July 08, 2024 TIME: 11:06 [facility]04-29-2025 History of Present illness Narrative* Janie Mosshlmary Melendez DO - 07/08/2024 11:06 AM EDT Images from the original note were not included. [facility] [place] DEPARTMENT OF VASCULAR SURGERY OUTPATIENT VISIT DATE July 08, 2024 OUTPATIENT VISIT TYPE ESTABLISHED SERVICE DATE: 07/08/2024 SERVICE TIME: 11:06 AM PRIMARY CARE PHYSICIAN: Zachary Kennedy MD HISTORY OF PRESENT ILLNESS: Mr. Lee is a 83 year old male who presents today for a vascular surgery follow-up visit for peripheral arterial disease. He has a history of stroke last year while in [place]. Recently they have noticed that he isn't using his right leg as he had in the past. Unknownwhen weakness started. He drove down to [place] in December without difficulty. Denies rest pain or tissue loss. He had a CT head ordered by Dr. 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 Hyperlipidemia Impacted cerumen [place] (myocardial infarction) ([facility]) '93, '98, '03, '04 Pneumonia 03/08/2011 PAST SURGICAL HISTORY Procedure Laterality Date ANGIOPLASTY 02/2004 with stents ARTHRP ACETBLR/PROX FEM PROSTC AGRFT/ALGRFT Right CABG (2) VEIN GRAFTS & ARTERIAL GRAFT(S 09/09/1997 COLONOSCOPY 07/26/2022 COLONOSCOPY SCREENING 08/09/2022 Dr Du CORONARY ARTERY DILATION 03/12/2010 3 stents EGD 07/26/2022 IMPLANTABLE CARDIOVERTER DEFIBRILLATOR 09/05/2010 duel chamber REMV CATARACT EXTRACAP,INSERT LENS Bilateral SOCIAL HISTORY Social History Tobacco Use Smoking status: Never Smokeless tobacco: Never Vaping Use Vaping status: Never Used Substance Use Topics Alcohol use: No Drug use: No MEDICATIONS: empagliflozin (JARDIANCE) 10 mg tablet Take 1 tablet by mouth daily with breakfast. SITagliptin-metFORMIN (JANUMET) 50-1,000 mg per tablet Take 1 tablet in the morning and 1/2 tablet in the evening. pantoprazole DR (PROTONIX) 40 mg tablet Take 1 tablet by mouth once daily. losartan (COZAAR) 50 mg tablet Take 50 mg by mouth once daily. ferrous sulfate 325 mg (65 mg iron) tablet Take 325 mg by mouth every other day. rosuvastatin (CRESTOR) 5 mg tablet Take 5 mg by mouth once daily. (Patient taking differently: Take5 mg by mouth two times a day.) OTC PRODUCT 1,000 mg twice daily. Tumeric complex Lancets lancets Test blood sugar(s) 1 times daily. Dx: Type 2 DM - Controlled E11.9 Insulin: No blood sugar diagnostic (BLOOD GLUCOSE TEST) test strip Test blood sugar(s) 1 times daily. Dx: Type 2 DM - Controlled E11.9 Insulin: No sotalol (BETAPACE) 80 mg tablet Take 1 1/2 tablets by mouth twice daily. apixaban (ELIQUIS) 5 mg tab(s) Take 5 mg by mouth twice daily. cyanocobalamin (VITAMIN B-12) 1,000 mcg tab Take 1,000 mcg by mouth once daily. VITAMIN B COMPLEX-100 ORAL Take 1 tablet by mouth once daily. clopidogrel (PLAVIX) 75 mg tablet Take 75 mg by mouth once daily. UBIDECARENONE (COQ-10 ORAL) Take 400 mg by mouth once daily. ALLERGIES: ALLERGIES Allergen Reactions Avandamet [Rosiglit* Intolerance refuses Iodine Anaphylaxis Oxycodone GI Upset, Vomiting Dizziness Promethazine-Codeine Intolerance Low BP, vomited PHYSICAL EXAM: BP 130/73 (BP Site: Left Arm, BP Position: Sitting, BP Cuff Size: Regular Adult) Pulse 78 SpO2 97% Gen- no distress Neuro- right leg weakness, no ulcerations or tissue loss, non palpable distal pulses Diagnostic tests reviewed for today's visit: Most recent labs Most recent imaging PVRs- unchanged- R .077, L 0.83, Carotid- bilateral ICA <50% stenosis, right innominate soft plaque noted IMPRESSION: Mr. Lee is a 83 year old male with peripheral arterial disease, right leg weakness . PLAN and RECOMMENDATIONS: Recommend continue current medications- including statin, aspirin Continue walking/exercise as tolerated He has appointment with PT for gait abnormality Follow up with me in 1 year SIGNATURE: Abigail Moss DO PATIENT NAME: Ronnie Lee DATE: July 08, 2024 TIME: 11:06 AM [facility] encounter[facility]04-[facility] Telephone encounter Note * Telephone Encounter - Bri Pal RN - 07/07/2024 5:06 PM EDT Pt and called and is notified of providers results and instructions. The voices understanding.Pts was put through to scheduling to set up appointment with Neurology. Bri Pal RN [facility]04-28-2025 Miscellaneous Notes* Telephone Encounter - Bri Pal RN - 07/07/2024 5:06 PM EDT Pt and called and is notified of providers results and instructions. The voices understanding.Pts was put through to scheduling to set up appointment with Neurology. Bri Pal RN * Telephone Encounter - Zachary Kennedy MD - 07/07/2024 4:[address] of brain did not show new strokes or bleeding. It did show some changes that can be related to memory loss but can also be related to fluid not draining well in the brain. Lets refer to neuro. (Wedid not do MRI due to ICD and issues with contrast) documented in this encounterOur [facility]04-28-2025 Telephone encounter Note * Telephone Encounter - Zachary Kennedy MD - 07/07/2024 4:[address] of brain did not show new strokes or bleeding. It did show some changes that can be related to memory loss but can also be related to fluid not draining well in the brain. Lets refer to neuro. (Wedid not do MRI due to ICD and issues with contrast) [facility]04-23-2025 NoteHNO ID: [id number] Author: EVA PLATA RT(R) Service: ? Author Type: Deputy Chief Executive Type: Progress Notes Filed: 07/02/2024 13:36 Note Text: Radiology Service Progress Note PATIENT NAME: Ronnie Lee DATE OF SERVICE: July 02, 2024 TIME: 1:35 PM PATIENT IDENTITY VERIFICATION COMPLETED USING TWO (2) IDENTIFIERS: Name and Date of confirmed by patient verbally. FALL SCREENING: Has the patient had 2 falls in the last year or 1 fall with injury or currently using an Ambulatory Assistive Device (Walker, Cane, Wheelchair, Crutches, etc.)? No PATIENT GENDER DATA: Assigned male at PATIENT RELEVANT IMPLANT DATA REVIEWED: Yes PATIENT PRESENTS WITH AN IMPLANTABLE OR ATTACHED MIRROR MACHINE FEEDER: No RADIOLOGY DEPARTMENT: CT; Exam(s) Completed: Brain PERIPHERAL IV DATA: Not applicable SIGNED BY: RT Darrell(R) July 02, 2024 1:35 [facility] Telephone encounter Note* Telephone Encounter - Jayde Llamas MA - 06/23/2024 10:03 AM EDT Pt notified. Jayde Llamas MA [facility]04-14-2025 Miscellaneous Notes* Telephone Encounter - Jayde Llamas MA - 06/23/2024 10:03 AM EDT Pt notified. Jayde Llamas MA * Telephone Encounter - Gosia Ruff MA - 06/20/2024 10:05 AM EDT Message left for return call. Gosia Ruff MA * Telephone Encounter - Zachary Kennedy MD - 06/19/2024 2:35 PM EDT Will need to add another med to the list. Add jardiance Check bmp in one month and follow up with one of us after. * Telephone Encounter - Lorna Baca LPN - 06/19/2024 12:34 PM EDT Patient reports that he eats a lot of cookies. believes that he is taking his medication and not missing any doses. When asked is she believes he would change his diet she says I don't know. * Telephone Encounter - Zachary Kennedy MD - 06/19/2024 11:48 AM EDT His white count is up slightly. His sugars are very high. Has he missed any of his diabetic meds? documented in this encounterOur [facility]04-11-2025 Telephone encounter Note * Telephone Encounter - Gosia Ruff MA - 06/20/2024 10:05 AM EDT Message left for return call. Gosia Ruff MA [facility]04-11-2025 NoteHNO ID: [id number] Author: STU LLOYD, DO Service: ? Author Type: Physician Type: Progress Notes Filed: 06/20/2024 10:23 Note Text: Diagnosis: 1) CLL. HPI: The patient is an 83 yo male who has a h/o ischemic CM s/p dual chamber ICD 03/22. Was hospitalized for pneumonia 03/08-03/11/11. Was found to have elevated WBC count (labs not available). Repeat CBC via PCP's office 03/24/11: WBC=18.4K with 15K lymphs. Hgb=12.6 gm/dl and platelets 203K. Underwent right total hip replacement on 07/16/2017. Previous therapy: 1) Ibrutinib. On full dose he had dizziness but same time he was on higher dose carvedilol. Carvedilol dose was decreased ibrutinib was decreased to 1 capsule daily. Discontinued due to GI bleed. Presents for ongoing hematologic management. Interim history: Last seen in the fall 2022. He has no complaints today. No ED visits or hospitalizations since I last saw him. No unusual bleeding or unexplained bruising. PMH, medications and allergies personally reviewed by me today. Any changes documented in appropriate section. ROS: Constitutional: Appetite is normal. Neuro: Denies BECK. No symptoms of neuropathy. HEENT: No recent change in voice, vision or hearing. Resp: Denies cough, wheeze and hemoptysis. CVS: No complaints of chest pain, pressure or palpitation. Not short of breath at rest or with moderate activity. GI: No dysgeusia. No odynophagia or dysphagia. No nausea or vomiting. No diarrhea or change in bowel habits. Endo: No hot flashes. Derm: No rash. No episodes of jaundice or diffuse itch. MS: No MS pain. Heme: See above. Psych: Normal mood. PHYSICAL EXAM: Vitals: Blood pressure 159/89, pulse 82, temperature 36.1 ?C (96.9 ?F), temperature source Temporal, height 177 cm (5' 9.69), weight 76 kg (167 lb 8 oz), SpO2 100%. More frail-appearing and in no acute distress. EYES: Sclerae are anicteric bilaterally. LYMPHATIC: There is no palpable cervical, supraclavicular or axillary adenopathy. ABDOMEN: The abdomen is nondistended. Extremities: Free of edema. SKIN: No jaundice or rash. ASSESSMENT/PLAN: (C91.10) CLL (chronic lymphocytic leukemia) (HCC) (primary encounter diagnosis) Assessment: -Indication for therapy was progressive shortening of the doubling time. -Ibrutinib discontinued when he had to start apixaban for atrial fibrillation. He was also on Plavix. Had GI bleed. - Reviewed his recent CBC. Improving anemia. Lymphocyte count up a little bit but platelets remain normal and there is no indication to resume treatment. Discussed plan to follow him a little more closely determine lymphocyte doubling time. Plan every 3 month visits for about a year then perhaps every 6 months if things remain stable/slowly progressive. Plan: -OV with CBC in about 3 months. Portions of this documentation were copied and pasted from my previous office visit note dated 12/11/2022 in order to provide a cohesive continuity of the history. The note has been reviewed and edited and updated as necessary. I spent a total of 20 minutes on the date of the service which included preparing to see the patient, [id number] patient care, completing clinical documentation, obtaining and/or reviewing separately obtained history, performing a medically appropriate examination, counseling and educating the patient/family/caregiver, ordering medications, tests, or procedures, communicating with other HCPs (not separately reported), and communicating results to the patient/family/caregiver. Stu Lloyd, [facility]04-11-2025 History of Present illness Narrative* Stu Lloyd, DO - 06/20/2024 10:04 AM EDT Diagnosis: 1) CLL. HPI: The patient is an 83 yo male who has a h/o ischemic CM s/p dual chamber ICD 03/22. Was hospitalized for pneumonia 03/08-03/11/11. Was found to have elevated WBC count (labs not available). Repeat CBC via PCP's office 03/24/11: WBC=18.4K with 15K lymphs. Hgb=12.6 gm/dl and platelets 203K. Underwent right total hip replacement on 07/16/2017. Previous therapy: 1) Ibrutinib. On full dose he had dizziness but same time he was on higher dose carvedilol. Carvedilol dose was decreased ibrutinib was decreased to 1 capsule daily. Discontinued due to GI bleed. Presents for ongoing hematologic management. Interim history: Last seen in the fall 2022. He has no complaints today. No ED visits or hospitalizations since I last saw him. No unusual bleeding or unexplained bruising. PMH, medications and allergies personally reviewed by me today. Any changes documented in appropriate section. ROS: Constitutional: Appetite is normal. Neuro: Denies BECK. No symptoms of neuropathy. HEENT: No recent change in voice, vision or hearing. Resp: Denies cough, wheeze and hemoptysis. CVS: No complaints of chest pain, pressure or palpitation. Not short of breath at rest or with moderate activity. GI: No dysgeusia. No odynophagia or dysphagia. No nausea or vomiting. No diarrhea or change in bowel habits. Endo: No hot flashes. Derm: No rash. No episodes of jaundice or diffuse itch. MS: No MS pain. Heme: See above. Psych: Normal mood. PHYSICAL EXAM: Vitals: Blood pressure 159/89, pulse 82, temperature 36.1 C (96.9 F), temperature source Temporal, height 177 cm (5' 9.69), weight 76 kg (167 lb 8 oz), SpO2 100%. More frail-appearing and in no acute distress. EYES: Sclerae are anicteric bilaterally. LYMPHATIC: There is no palpable cervical, supraclavicular or axillary adenopathy. ABDOMEN: The abdomen is nondistended. Extremities: Free of edema. SKIN: No jaundice or rash. ASSESSMENT/PLAN: (C91.10) CLL (chronic lymphocytic leukemia) (HCC) (primary encounter diagnosis) Assessment: -Indication for therapy was progressive shortening of the doubling time. -Ibrutinib discontinued when he had to start apixaban for atrial fibrillation. He was also on Plavix. Had GI bleed. - Reviewed his recent CBC. Improving anemia. Lymphocyte count up a little bit but platelets remain normal and there is no indication to resume treatment. Discussed plan to follow him a little more closely determine lymphocyte doubling time. Plan every 3 month visits for about a year then perhaps every 6 months if things remain stable/slowly progressive. Plan: -OV with CBC in about 3 months. Portions of this documentation were copied and pasted from my previous office visit note dated 12/11/2022 in order to provide a cohesive continuity of the history. The note has been reviewed and edited and updated as necessary. I spent a total of 20 minutes on the date of the service which included preparing to see the patient, [id number] patient care, completing clinical documentation, obtaining and/or reviewing separately obtained history, performing a medically appropriate examination, counseling and educating the pat ient/family/caregiver, ordering medications, tests, or procedures, communicating with other HCPs (not separately reported), and communicating results to the patient/family/caregiver. Stu Lloyd DO documented in this encounterOur [facility]04-10-2025 Telephone encounter Note * Telephone Encounter - Zachary Kennedy MD - 06/19/2024 2:35 PM EDT Will need to add another med to the list. Add jardiance Check bmp in one month and follow up with one of us after. [facility]04-10-2025 Telephone encounter Note* Telephone Encounter - Lorna Baca LPN - 06/19/2024 12:34 PM EDT Patient reports that he eats a lot of cookies. believes that he is taking his medication and not missing any doses. When asked is she believes he would change his diet she says I don't know. [facility]04-10-2025 Telephone encounter Note* Telephone Encounter - Zachary Kennedy MD - 06/19/2024 11:48 AM EDT His white count is up slightly. His sugars are very high. Has he missed any of his diabetic meds? [facility]04-09-2025 Telephone encounter Note* Telephone Encounter - Bee Hunter - 06/18/2024 9:34 AM EDT Spoke w pt he is scheduled for 06/20. Bee Hunter [facility]04-09-2025 Miscellaneous Notes* Telephone Encounter - Bee Hunter - 06/18/2024 9:34 AM EDT Spoke w pt he is scheduled for 06/20. Bee Hunter * Telephone Encounter - Stu Lloyd DO - 06/18/2024 9:10 AM EDT Sorry, when I looked at this encounter yesterday I noticed he had a CBC pending. It's partially resulted this morning. White count is not much higher. Regular office visit would be fine. Stu Lloyd DO * Telephone Encounter - Almita Rosas LPN - 06/18/2024 9:06 AM EDT Patient is known to Dr. Lloyd. Last OV was 12/11/2022. Dr. Lloyd- est simple or est complex OV? Almita Rosas LPN * Telephone Encounter - Judith Piedra - 06/18/2024 7:58 AM EDT Please review and advise CONSULT TO HEMATOLOGY Status: Needs Scheduling Requested appt date: Authorizing: [facility] Ref[facility]: [id number] (Authorized) Expires: 06/17/2025 Priority: Routine Diagnosis: History of chronic lymphocytic leukemia [Z85.6] Comments Over due for follow up. documented in this encounterOur [facility]04-09-2025 Telephone encounter Note * Telephone Encounter - Almita Rosas LPN - 06/18/2024 9:12 AM EDT Addressed in another encounter. Almita Rosas LPN [facility]04-09-2025 Miscellaneous Notes* Telephone Encounter - Almita Rosas LPN - 06/18/2024 9:12 AM EDT Addressed in another encounter. Almita Rosas LPN * Telephone Encounter - Joanie Cummings LPN - 06/17/2024 3:[address] Kennedy today. Previous pt here of Dr Lloyd for [facility] in [place] Last apt in this dept was 12/11/22 Would like follow up. What type of apt slot would you like the schedulers to use? Joanie Cummings LPN * Telephone Encounter - Michelle Marrero - 06/17/2024 3:38 PM EDT Please review and schedule as appropriate. Michelle Marrero documented [facility] Telephone encounter Note * Telephone Encounter - Stu Lloyd DO - 06/18/2024 9:10 AM EDT Sorry, when I looked at this encounter yesterday I noticed he had a CBC pending. It's partially resulted this morning. White count is not much higher. Regular office visit would be fine. Stu Lloyd DO [facility]04-09-2025 Telephone encounter Note* Telephone Encounter - Almita Rosas LPN - 06/18/2024 9:06 AM EDT Patient is known to Dr. Lloyd. Last OV was 12/11/2022. Dr. Lloyd- est simple or est complex OV? Almita Rosas LPN [facility]04-09-2025 Telephone encounter Note* Telephone Encounter - Judith Piedra - 06/18/2024 7:58 AM EDT Please review and advise CONSULT TO HEMATOLOGY Status: Needs Scheduling Requested appt date: Authorizing: Zachary Kennedy MD in [facility] Referral: [id number] (Authorized) Expires: 06/17/2025 Priority: Routine Diagnosis: History of chronic lymphocytic leukemia [Z85.6] Comments Over due for follow up. [facility]04-08-2025 Telephone encounter Note* Telephone Encounter - Joanie Cummings LPN - 06/17/2024 3:[address] Kennedy today. Previous pt here of Dr Lloyd for [facility] [place] in [place] Last apt in this dept was 12/11/22 Would like follow up. What type of apt slot would you like the schedulers to use? Joanie Cummings LPN [facility]04-08-2025 Telephone encounter Note* Telephone Encounter - Michelle Marrero - 06/17/2024 3:38 PM EDT Please review and schedule as appropriate. Michelle Marrero [facility]04-08-2025 NoteHNO ID: [id number] Author: ZACHARY KENNEDY MD Service: ? Author Type: Physician Type: Progress Notes Filed: 06/17/2024 15:18 Note Text: Patient presents with: 6 Month Exam HPI: Patient presents today for office visit for routine 6 month follow up. [facility] he believes in the [facility]. Has had three falls in the last six months. Most recent was last week. He doesn't remember how or why he fell. States I just fell. Did not hit his head on the last one. No loc. states it happened in the kitchen. Has visible bruising and abrasion to his left eye. Did fall and hit the ground a number of weeks ago. Is resolving. No loc. No headache. No focal numbness or weakness. Denies dizziness. States he feels unsteady on his feet. Has a hx of tremor and did have a cva apparently in [place] in 2022. Does not use any ambulatory devices. Discussed considering more therapy or evaluation. Discussed risks of falls particularly with him being on anticoagulants. He feels his memory is bad No issues controlling his urine. Has a tremor. Unsure if getting worse. HTN: Does not monitor BP at home Denies chest pain and shortness of breath No palpitations. No syncope. Follows with cardiology. DM: Does not check his sugars at home Does not watch what he eats Due for A1c GERD: Symptoms controlled HLD: No myalgias Follows with vascular surgery. He missed his last appts in hematology and did not follow up. Sees Rosalie san. Note was copied and pasted, without alteration from: my last ov here with me in #: Followed by Cardiology. Last OV with [facility] 12/14/22. No chest pain or shortness of breath. No edema. Still seeing Dr. Lloyd. No longer taking Inbruvica. In remission. No longer wearing compression stockings. Still with some swelling right leg is not new. No redness or warmth. DM: Checks sugars occ. Not every day Last A1c 5.8 No vision changes. Sees Ophthalmology yearly. Endo has not checked his sugar. Lipids are stable. [facility] Blood counts improving. No further bleeding issue MEDICATIONS: Current Outpatient Medications Medication Sig SITagliptin-metFORMIN (JANUMET) 50-1,000 mg per tablet Take 1 tablet in the morning and 1/2 tablet in the evening. pantoprazole DR (PROTONIX) 40 mg tablet Take 1 tablet by mouth once daily. losartan (COZAAR) 50 mg tablet Take 50 mg by mouth once daily. ferrous sulfate 325 mg (65 mg iron) tablet Take 325 mg by mouth every other day. rosuvastatin (CRESTOR) 5 mg tablet Take 5 mg by mouth once daily. OTC PRODUCT 1,000 mg twice daily. Tumeric complex Lancets lancets Test blood sugar(s) 1 times daily. Dx: Type 2 DM - Controlled E11.9 Insulin: No blood sugar diagnostic (BLOOD GLUCOSE TEST) test strip Test blood sugar(s) 1 times daily. Dx: Type 2 DM - Controlled E11.9 Insulin: No sotalol (BETAPACE) 80 mg tablet Take 1 1/2 tablets by mouth twice daily. apixaban (ELIQUIS) 5 mg tab(s) Take 5 mg by mouth twice daily. cyanocobalamin (VITAMIN B-12) 1,000 mcg tab Take 1,000 mcg by mouth once daily. VITAMIN B COMPLEX-100 ORAL Take 1 tablet by mouth once daily. clopidogrel (PLAVIX) 75 mg tablet Take 75 mg by mouth once daily. UBIDECARENONE (COQ-10 ORAL) Take 400 mg by mouth once daily. No current facility-administered medications for this visit. 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 Hyperlipidemia Impacted cerumen [place] (myocardial infarction) ([facility]) '93, '98, '03, '04 Pneumonia 03/08/2011 PAST SURGICAL HISTORY Procedure Laterality Date ANGIOPLASTY 02/2004 with stents ARTHRP ACETBLR/PROX FEM PROSTC AGRFT/ALGRFT Right CABG (2) VEIN GRAFTS AND ARTERIAL GRAFT(S 09/09/1997 COLONOSCOPY 07/26/2022 COLONOSCOPY SCREENING 08/09/2022 Dr Du CORONARY ARTERY DILATION 03/12/2010 3 stents EGD 07/26/2022 IMPLANTABLE CARDIOVERTER DEFIBRILLATOR 09/05/2010 duel chamber REMV CATARACT EXTRACAP,INSERT LENS Bilateral FAMILY HISTORY Problem Relation Age of Onset Heart Father Cancer Mother Diabetes Sister Diabetes Other Diabetes Other Diabetes Daughter prediabetic Social History Tobacco Use Smoking status: Never Smokeless tobacco: Never Vaping Use Vaping status: Never Used Substance Use Topics Alcohol use: No Drug use: No Reviewed current medications, allergies, past medical history, surgical history, family history and social history today. REVIEW OF SYSTEM (more content not included)...[facility] 06-17-2024 History of Present illness Narrative* Zachary Kennedy MD - 06/17/2024 2:30 PM EDT Patient presents with: 6 Month Exam HPI: Patient presents today for office visit for routine 6 month follow up. [facility] did [facility] them he believes in the fall. Has had three falls in the last six months. Most recent was last week. He doesn't remember how or why he fell. States I just fell. Did not hit his head on the last one. No loc. states it happened in the kitchen. Has visible bruising and abrasion to his left eye. Did fall and hit the ground a number of weeks ago. Is resolving. No loc. No headache. No focal numbness or weakness. Denies dizziness. States he feels unsteady on his feet. Has a hx of tremor and did have a cva apparently in [place] in 2022. Does not use any ambulatory devices. Discussed considering more therapy or evaluation. Discussed risks of falls particularly with him being on anticoagulants. He feels his memory is bad No issues controlling his urine. Has a tremor. Unsure if getting worse. HTN: Does not monitor BP at home Denies chest pain and shortness of breath No palpitations. No syncope. Follows with cardiology. DM: Does not check his sugars at home Does not watch what he eats Due for A1c GERD: Symptoms controlled HLD: No myalgias Follows with vascular surgery. He missed his last appts in hematology and did not follow up. Sees Rosalie san. Note was copied and pasted, without alteration from: my last ov here with me in #: Followed by Cardiology. Last OV with [facility] 12/14/22. No chest pain or shortness of breath. No edema. Still seeing Dr. Lloyd. No longer taking Inbruvica. In remission. No longer wearing compression stockings. Still with some swelling right leg is not new. No redness or warmth. DM: Checks sugars occ. Not every day Last A1c 5.8 No vision changes. Sees Ophthalmology yearly. Endo has not checked his sugar. Lipids are stable. Just had microalbumin done at [facility] and labs. Blood counts improving. No further bleeding issue MEDICATIONS: Current Outpatient Medications Medication Sig SITagliptin-metFORMIN (JANUMET) 50-1,000 mg per tablet Take 1 tablet in the morning and 1/2 tablet in the evening. pantoprazole DR (PROTONIX) 40 mg tablet Take 1 tablet by mouth once daily. losartan (COZAAR) 50 mg tablet Take 50 mg by mouth once daily. ferrous sulfate 325 mg (65 mg iron) tablet Take 325 mg by mouth every other day. rosuvastatin (CRESTOR) 5 mg tablet Take 5 mg by mouth once daily. OTC PRODUCT 1,000 mg twice daily. Tumeric complex Lancets lancets Test blood sugar(s) 1 times daily. Dx: Type 2 DM - Controlled E11.9 Insulin: No blood sugar diagnostic (BLOOD GLUCOSE TEST) test strip Test blood sugar(s) 1 times daily. Dx: Type 2 DM - Controlled E11.9 Insulin: No sotalol (BETAPACE) 80 mg tablet Take 1 1/2 tablets by mouth twice daily. apixaban (ELIQUIS) 5 mg tab(s) Take 5 mg by mouth twice daily. cyanocobalamin (VITAMIN B-12) 1,000 mcg tab Take 1,000 mcg by mouth once daily. VITAMIN B COMPLEX-100 ORAL Take 1 tablet by mouth once daily. clopidogrel (PLAVIX) 75 mg tablet Take 75 mg by mouth once daily. UBIDECARENONE (COQ-10 ORAL) Take 400 mg by mouth once daily. No current facility-administered medications for this visit. 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 Hyperlipidemia Impacted cerumen [place] (myocardial infarction) ([facility]) ', ', '03, '04 Pneumonia 03/08/2011 PAST SURGICAL HISTORY Procedure Laterality Date ANGIOPLASTY 02/2004 with stents ARTHRP ACETBLR/PROX FEM PROSTC AGRFT/ALGRFT Right CABG (2) VEIN GRAFTS & ARTERIAL GRAFT(S 09/09/1997 COLONOSCOPY 07/26/2022 COLONOSCOPY SCREENING 08/09/2022 Dr Du CORONARY ARTERY DILATION 03/12/2010 3 stents EGD 07/26/2022 IMPLANTABLE CARDIOVERTER DEFIBRILLATOR 09/05/2010 duel chamber REMV CATARACT EXTRACAP,INSERT LENS Bilateral FAMILY HISTORY Problem Relation Age of Onset Heart Father Cancer Mother Diabetes Sister Diabetes Other Diabetes Other Diabetes Daughter prediabetic Social History Tobacco Use Smoking status: Never Smokeless tobacco: Never Vaping Use Vaping status: Never Used Substance Use Topics Alcohol use: No Drug use: No Reviewed current medications, allergies, past medical history, surgical history, family history andsocial history today. REVIEW OF SYSTEMS All other reviewed and negative other than HPI. HEALTH MAINTENANCE: Reviewed health maintenance issues today and recommended the following in detail. Dilated Retinal Exam due on 08/17/2021 Diabetic Foot Exam due on 07/05/2023 Advance Directive Discussion due on 03/12/2024 HbA1C due on 03/19/2024 Depression Screening due on 06/24/2024 Anxiety Screening due on 06/24/2024 VITALS: BP 118/64 Pulse 92 Ht 182.9 cm (6') Wt 77.1 kg (170 lb) SpO2 95% BMI 23.06 kg/m Last 4 Encounter Wt Readings: Date: Wt: 06/25/2023 71.3 kg (157 lb 3.2 oz) 05/25/2023 72.1 kg (159 lb) 12/22/2022 73.7 kg (162 lb 6.4 oz) 12/11/2022 75.8 kg (167 lb) PHYSICAL EXAMINATION: General appearance: Well appearing, alert, in no acute distress, well-hydrated, well nourished. Skin: Skin color, texture, turgor normal, no suspicious rashes or lesions Head: Normocephalic, no masses, lesions, tenderness or abnormalities Eyes: Anicteric sclera. Pupils are equally round and reactive to light. Extraocular movements are intact. Ears: External ears normal, canals clear Nose/Sinuses: Nares normal, septum midline, mucosa normal, no drainage or sinus tenderness Oropharynx: Lips, mucosa, and tongue normal, teeth and gums normal, oropharynx normal Neck: Supple, no adenopathy; thyroid symmetric, normal size, no bruits Back: Normal exam Lungs: Lungs clear to auscultation. No wheezing, rhonchi, rales Heart: RRR without murmur, gallop, or rubs. No ectopy Abdomen: Normal abdominal exam, Abdomen soft, non-tender. Bowel sounds normal. No masses, organomegaly Feet:Shoes and socks removed, sensitive to 10 gm monofilament, and decreased hair on toes. Decreased pp's. Neuro: Negative findings: muscle tone normal, muscle strength normal, reflexes normal and symmetric. No definite cogwheeling. Some tremor at rest A and 0 x 3. Able to recall three objects. ASSESSMENT/PLAN: 1. Chronic atrial fibrillation (HCC) - ICD9: 427.31, ICD10: I48.20 (primary diagnosis) - stable. Continue meds. 2. Coronary artery disease due to lipid rich plaque - ICD9: 414.00, 414.3, ICD10: I25.10, I25.83 - call if issue. Continue to see cardiology 3. Mixed hyperlipidemia - ICD9: 272.2, ICD10: E78.2 - stable. Continue meds. 4. PAD (peripheral artery disease) - ICD9: 443.9, ICD10: I73.9 - see vascular surgery. 5. ICD (implantable cardioverter-defibrillator) in place - ICD9: V45.02, ICD10: Z95.810 - per cardiology. 6. 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 7. Ischemic cardiomyopathy - ICD9: 414.8, ICD10: I25.5 - stable. 8. Primary hypertension - ICD9: 401.9, ICD10: I10 - Controlled - Continue current medications 9. Congestive heart failure, unspecified HF chronicity, unspecified heart failure type (HCC) - ICD9: 428.0, ICD10: I50.9 - stable. 10. Paroxysmal ventricular tachycardia (HCC) - ICD9: 427.1, ICD10: I47.20 - per cardiology. 11. Screening for depression - ICD9: V79.0, ICD10: Z13.31 - DEPRESSION SCREENING 12. Iron malabsorption (HCC) - ICD9: 579.8, ICD10: K90.9 - IRON AND TIBC 13. GERD without esophagitis - ICD9: 530.81, ICD10: K21.9 - stable. 14. History of chronic lymphocytic leukemia - ICD9: V10.61, ICD10: Z85.6 -did not keep last follow up. - CONSULT TO HEMATOLOGY 15. Osteoarthritis of hip, unspecified laterality, unspecified osteoarthritis type - ICD9: 715.95, ICD10: M16.9 - stable. 16. 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 Get ct due to ataxia and memory issues. - CT BRAIN WO IVCON - cannot take dye-anaphylaxis and has icd so avoid mri. Does not need done acutely since last head injury was at least about a month ago. 17. Ataxia - ICD9: 781.3, ICD10: R27.0 - CT BRAIN WO IVCON - CONSULT TO NEUROLOGY - get physical therapy 18. Memory loss - ICD9: 780.93, ICD10: R41.3 - COMPLETE BLOOD COUNT AND DIFFERENTIAL - COMPREHENSIVE METABOLIC PANEL - THYROID STIMULATING HORMONE - VITAMIN B12 - FOLATE, SERUM - SYPHILIS TREPONEMAL W/REFLEX - CT BRAIN WO IVCON - CONSULT TO NEUROLOGY 19. Encounter for screening examination for other mental health and behavioral disorders - ICD9: V79.8, ICD10: Z13.39 - ANXIETY SCREENING 20. Type 2 diabetes mellitus with stage 3 chronic kidney disease, without long- term current use of insulin, unspecified whether stage 3a or 3b CKD (HCC) - ICD9: 250.40, 585.3, ICD10: E11.22, N18.30 - check labs. - HEMOGLOBIN A1C 21. Chronic kidney disease, stage 3a (HCC) - ICD9: 585.3, ICD10: N18.31 - follow labs. Zachary Kennedy MD documented in [facility]10[facility] Telephone encounter Note * Telephone Encounter - Courtney Coombs LPN - 12/21/2023 9:27 AM EDT Phoned patient and spoke with his Marisol and reviewed message with her. She repeated orders andagreeable and voiced understanding. Courtney Coombs LPN [facility]10-[facility] Miscellaneous Notes* Telephone Encounter - Courtney Coombs LPN - 12/21/2023 9:27 AM EDT Phoned patient and spoke with his Marisol and reviewed message with her. She repeated orders andagreeable and voiced understanding. Courtney Coombs LPN * Telephone Encounter - Ya Morel APRN.ERIC - 12/21/2023 8:52 AM EDT Received notification from Dr. Hernandes that patient is no longer following with her and hasn't been seen there since 08/2022. Lets have him go ahead and increase the janumet to a whole tablet in the morning and a 1/2 tablet in the evening. He'll need a repeat A1C in [address] Hernandes's office did say that if he wanted to return there, to please call their office. Ya Morel APRN.ERIC * Telephone Encounter - Escobar Thomas LPN - 12/19/2023 1:35 PM EDT TC to pt, spoke /c pt , Marisol, notified of results. Marisol states pt still follows with Dr. Blackwell. Results faxed to Dr. Blackwell's office. Escobar Thomas LPN * Telephone Encounter - Ya Morel APRN.ERIC - 12/19/2023 8:43 AM EDT Can please let patient know that I received his labs. His diabetes is worse. Is he still following with Dr. Hernandes from endocrinology? It is affecting his kidney function. It looks like Dr. Santiago is managing his diabetic medication. If so, can we please fax his labwork to endocrinology, as his medications will likely need to be adjusted. Ya Morel APRN.CNP documented in this encounterOur [facility]10-[facility]-2024 Telephone encounter Note * Telephone Encounter - Ya Morel APRN.CNP - 12/21/2023 8:52 AM EDT Received notification from Dr. Hernandes that patient is no longer following with her and hasn't been seen there since 08/2022. Lets have him go ahead and increase the janumet to a whole tablet in the morning and a 1/2 tablet in the evening. He'll need a repeat A1C in [address] Hernandes's office did say that if he wanted to return there, to please call their office. Ya Morel APRN.CNP [facility] Telephone encounter Note* Telephone Encounter - Escobar Thomas LPN - 12/19/2023 1:35 PM EDT TC to pt, spoke /c pt , Marisol, notified of results. Marisol states pt still follows with Dr. Blackwell. Results faxed to Dr. Blackwell's office. Escobar Thomas LPN [facility]10-[facility]-2024 Telephone encounter Note* Telephone Encounter - Ya Morel APRN.CNP - 12/19/2023 8:43 AM EDT Can please let patient know that I received his labs. His diabetes is worse. Is he still following with Dr. Hernandes from endocrinology? It is affecting his kidney function. It looks like Dr. Santiago is managing his diabetic medication. If so, can we please fax his labwork to endocrinology, as his medications will likely need to be adjusted. Ya Morel APRN.ERIC [facility]10-08-2024 Instructions* Patient Instructions* Ya Morel APRN.CNP - 12/18/2023 12:14 PM EDT Get the labwork. Same medications. Recheck in 6 months. documented in this encounterOur [facility] Of [facility]10-08-2024 NoteHNO ID: [id number] Author: YA MOREL APRN.CNP Service: ? Author Type: Nurse Practitioner Type: Progress Notes Filed: 12/18/2023 17:38 Note Text: This is a 83 year old male who presents today with: Patient presents with: 6 Month Exam HISTORY OF PRESENT ILLNESS: Ronine Lee is a 83 year old male. Patient presents with: 6 Month Exam HTN: Patient is compliant with meds Yes Monitors bp at home: No. Denies side effects: Yes. Chest pain: No. Dyspnea: No. Edema: No. Palpitations: No. Syncope: No. Headache: No. Dizziness: No. GERD: Controlled w/ PPI. Chronic anticoagulation. No abnormal s/s of bleeding. DM: Reports overall feeling well. Medication side effects: No. Home sugar checks: no Hypoglycemic spells: No. Watching diet: No. Unexpected weight loss: No. Polyuria, polydipsia: No. Vision Changes: No. Foot lesions or numbness or pain: No. CAD/pacemaker Follows w/ cardiology. 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 Hyperlipidemia Impacted cerumen TN (myocardial infarction) ([facility]) ', ', '03, '04 Pneumonia 03/08/2011 PAST SURGICAL HISTORY Procedure Laterality Date ANGIOPLASTY 02/2004 with stents ARTHRP ACETBLR/PROX FEM PROSTC AGRFT/ALGRFT Right CABG (2) VEIN GRAFTS AND ARTERIAL GRAFT(S 09/09/1997 COLONOSCOPY 07/26/2022 COLONOSCOPY SCREENING 08/09/2022 Dr Du CORONARY ARTERY DILATION 03/12/2010 3 stents EGD 07/26/2022 IMPLANTABLE CARDIOVERTER DEFIBRILLATOR 09/05/2010 duel chamber REMV CATARACT EXTRACAP,INSERT LENS Bilateral ALLERGIES Avandamet [Rosiglitazone-Metformin], Iodine, Oxycodone, and Promethazine-Codeine MEDICATIONS Current Outpatient Medications Medication Sig pantoprazole DR (PROTONIX) 40 mg tablet Take 1 tablet by mouth once daily. losartan (COZAAR) 50 mg tablet Take 50 mg by mouth once daily. ferrous sulfate 325 mg (65 mg iron) tablet Take 325 mg by mouth every other day. rosuvastatin (CRESTOR) 5 mg tablet Take 5 mg by mouth once daily. OTC PRODUCT 1,000 mg twice daily. Tumeric complex Lancets lancets Test blood sugar(s) 1 times daily. Dx: Type 2 DM - Controlled E11.9 Insulin: No blood sugar diagnostic (BLOOD GLUCOSE TEST) test strip Test blood sugar(s) 1 times daily. Dx: Type 2 DM - Controlled E11.9 Insulin: No sotalol (BETAPACE) 80 mg tablet Take 1 1/2 tablets by mouth twice daily. apixaban (ELIQUIS) 5 mg tab(s) Take 5 mg by mouth twice daily. cyanocobalamin (VITAMIN B-12) 1,000 mcg tab Take 1,000 mcg by mouth once daily. VITAMIN B COMPLEX-100 ORAL Take 1 tablet by mouth once daily. clopidogrel (PLAVIX) 75 mg tablet Take 75 mg by mouth once daily. SITagliptin-metFORMIN (JANUMET) 50-1,000 mg per tablet Take 0.5 tablets by mouth twice daily. UBIDECARENONE (COQ-10 ORAL) Take 400 mg by mouth once daily. No current facility-administered medications for this visit. FAMILY HISTORY Problem Relation Age of Onset Heart Father Cancer Mother Diabetes Sister Diabetes Other Diabetes Other Diabetes Daughter prediabetic Social History Tobacco Use Smoking status: Never Smokeless tobacco: Never Vaping Use Vaping status: Never Used Substance Use Topics Alcohol use: No Drug use: No EXAM: BP 138/80 Pulse 82 Resp 16 SpO2 99% PHYSICAL EXAM: General Appearance: Well appearing, alert, in no acute distress, well-hydrated, well nourished.. Skin: Skin color, texture, turgor normal, no suspicious rashes or lesions. Head: Normocephalic, no masses, lesions, tenderness or abnormalities. Eyes: Anicteric sclera. Extraocular movements are intact. . Neck: Supple, no adenopathy; thyroid symmetric, normal size, no bruits. Lungs: Lungs clear to auscultation. No wheezing, rhonchi, rales.. Heart: RRR without murmur, gallop, or rubs. No ectopy. Extremities: No deformities, trace edema right foot. Neurologic: Gait normal. ASSESSMENT/PLAN: 1. Type 2 diabetes mellitus with stage 2 chronic kidney disease, without long-term current use of insulin (HCC) (HCC) - ICD9: 250.40, 585.2, ICD10: E11.22, N18.2 (primary diagnosis) - Control undetermined, due for labs - Continue current medications - HEMOGLOBIN A1C 2. Primary hypertension - ICD9: 401.9, ICD10: I10 - Controlled - Continue current medications - Recommend home blood pressure monitoring, to bring results to next visit - Encouraged sodium restriction, DASH or Mediterranean diet - Recommend regular aerobic exercise - COMPREHENSIVE METABOLIC PANEL 3. Chronic anticoagulation - ICD9: V58.61, ICD10: Z79.01 No abnormal s/s of bleeding. - COMPLETE BLOOD COUNT AND DIFFERENTIAL 4. Dyslipidemia - ICD9: 272.4, ICD10: E78.5 - Control undetermined, d (more content not included)...[facility]10-08-2024 History of Present illness Narrative* Ya Morel APRN.HEATING AND BLENDING SUPERVISOR - 12/18/2023 12:01 PM EDT This is a 83 year old male who presents today with: Patient presents with: 6 Month Exam HISTORY OF PRESENT ILLNESS: Ronnie Lee is a 83 year old male. Patient presents with: 6 Month Exam HTN: Patient is compliant with meds Yes Monitors bp at home: No. Denies side effects: Yes. Chest pain: No. Dyspnea: No. Edema: No. Palpitations: No. Syncope: No. Headache: No. Dizziness: No. GERD: Controlled w/ PPI. Chronic anticoagulation. No abnormal s/s of bleeding. DM: Reports overall feeling well. Medication side effects: No. Home sugar checks: no Hypoglycemic spells: No. Watching diet: No. Unexpected weight loss: No. Polyuria, polydipsia: No. Vision Changes: No. Foot lesions or numbness or pain: No. CAD/pacemaker Follows w/ cardiology. 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 Hyperlipidemia Impacted cerumen [place] (myocardial infarction) ([facility]) , ', '03, '04 Pneumonia 03/08/2011 PAST SURGICAL HISTORY Procedure Laterality Date ANGIOPLASTY 02/2004 with stents ARTHRP ACETBLR/PROX FEM PROSTC AGRFT/ALGRFT Right CABG (2) VEIN GRAFTS & ARTERIAL GRAFT(S 09/09/1997 COLONOSCOPY 07/26/2022 COLONOSCOPY SCREENING 08/09/2022 Dr Du CORONARY ARTERY DILATION 03/12/2010 3 stents EGD 07/26/2022 IMPLANTABLE CARDIOVERTER DEFIBRILLATOR 09/05/2010 duel chamber REMV CATARACT EXTRACAP,INSERT LENS Bilateral ALLERGIES Avandamet [Rosiglitazone-Metformin], Iodine, Oxycodone, and Promethazine-Codeine MEDICATIONS Current Outpatient Medications Medication Sig pantoprazole DR (PROTONIX) 40 mg tablet Take 1 tablet by mouth once daily. losartan (COZAAR) 50 mg tablet Take 50 mg by mouth once daily. ferrous sulfate 325 mg (65 mg iron) tablet Take 325 mg by mouth every other day. rosuvastatin (CRESTOR) 5 mg tablet Take 5 mg by mouth once daily. OTC PRODUCT 1,000 mg twice daily. Tumeric complex Lancets lancets Test blood sugar(s) 1 times daily. Dx: Type 2 DM - Controlled E11.9 Insulin: No blood sugar diagnostic (BLOOD GLUCOSE TEST) test strip Test blood sugar(s) 1 times daily. Dx: Type 2 DM - Controlled E11.9 Insulin: No sotalol (BETAPACE) 80 mg tablet Take 1 1/2 tablets by mouth twice daily. apixaban (ELIQUIS) 5 mg tab(s) Take 5 mg by mouth twice daily. cyanocobalamin (VITAMIN B-12) 1,000 mcg tab Take 1,000 mcg by mouth once daily. VITAMIN B COMPLEX-100 ORAL Take 1 tablet by mouth once daily. clopidogrel (PLAVIX) 75 mg tablet Take 75 mg by mouth once daily. SITagliptin-metFORMIN (JANUMET) 50-1,000 mg per tablet Take 0.5 tablets by mouth twice daily. UBIDECARENONE (COQ-10 ORAL) Take 400 mg by mouth once daily. No current facility-administered medications for this visit. FAMILY HISTORY Problem Relation Age of Onset Heart Father Cancer Mother Diabetes Sister Diabetes Other Diabetes Other Diabetes Daughter prediabetic Social History Tobacco Use Smoking status: Never Smokeless tobacco: Never Vaping Use Vaping status: Never Used Substance Use Topics Alcohol use: No Drug use: No EXAM: BP 138/80 Pulse 82 Resp 16 SpO2 99% PHYSICAL EXAM: General Appearance: Well appearing, alert, in no acute distress, well-hydrated, well nourished.. Skin: Skin color, texture, turgor normal, no suspicious rashes or lesions. Head: Normocephalic, no masses, lesions, tenderness or abnormalities. Eyes: Anicteric sclera. Extraocular movements are intact. . Neck: Supple, no adenopathy; thyroid symmetric, normal size, no bruits. Lungs: Lungs clear to auscultation. No wheezing, rhonchi, rales.. Heart: RRR without murmur, gallop, or rubs. No ectopy. Extremities: No deformities, trace edema right foot. Neurologic: Gait normal. ASSESSMENT/PLAN: 1. Type 2 diabetes mellitus with stage 2 chronic kidney disease, without long- term current use of insulin (HCC) (HCC) - ICD9: 250.40, 585.2, ICD10: E11.22, N18.2 (primary diagnosis) - Control undetermined, due for labs - Continue current medications - HEMOGLOBIN A1C 2. Primary hypertension - ICD9: 401.9, ICD10: I10 - Controlled - Continue current medications - Recommend home blood pressure monitoring, to bring results to next visit - Encouraged sodium restriction, DASH or Mediterranean diet - Recommend regular aerobic exercise - COMPREHENSIVE METABOLIC PANEL 3. Chronic anticoagulation - ICD9: V58.61, ICD10: Z79.01 No abnormal s/s of bleeding. - COMPLETE BLOOD COUNT AND DIFFERENTIAL 4. Dyslipidemia - ICD9: 272.4, ICD10: E78.5 - Control undetermined, due for labs - Continue current medications - Counseled on healthy diet and regular exercise - LIPID PANEL, NONFASTING 5. GERD without esophagitis - ICD9: 530.81, ICD10: K21.9 Stable on PPI. - MAGNESIUM 6. High thyroid stimulating hormone (TSH) level - ICD9: 794.5, ICD10: R79.89 recheck - THYROID STIMULATING HORMONE 7. Type 2 diabetes mellitus with chronic kidney disease, without long-term current use of insulin, unspecified CKD stage (HCC) - ICD9: 250.40, 585.9, ICD10: E11.22 - Control undetermined, due for labs - Continue current medications - ALBUMIN/CREATININE RATIO, URINE Discussed treatment plan and patient voices understanding. Patient's questions answered appropriately. Medications and potential side effects were discussed and patient voices understanding. Return to the office as scheduled or as needed for worsening/no improvement. Ya Morel APRN.HEATING AND BLENDING SUPERVISOR documented in this encounterOur [facility]06-[facility] History of Present illness Narrative* Marce Mann, PT, DPT - 08/15/2023 9:18 PM EDT 08/15/2023 [facility]ER[facility] PHYSICAL THERAPY DISCONTINUANCE OF CARE Plan of Care Period: Start of Care Date: 06/15/23 Last Visit Date: 08/15/2023 Therapy Program: The following is a summary of the interventions provided for this episode of care; Therapeutic exercise, Neuromuscular re-education, and Manual therapy Assessment: The following is the goal status: Goals for Episode of Care: created on 06/15/23 through 08/31/2023 Updated: 08/03/2023 Patient will demonstrate increase in bilateral hip extension, right hip external rotation, and bilateral ankle dorsiflexion strength to 4+/5 during manual muscle testing in order to improve function for prior functional tasks. - Progressing Patient will report no falls. - Met Improve score on Timed Up and Go Test to 9.06 seconds to reflect decreased fall risk. -Progressing Improve score on Dynamic Gait index to to reflect decreased fall risk. - Met [place] in home exercise program including cardiovascular exercise. - Progressing Patient will improve his/her AM-PAC T-scale score by 4 points to indicate a Minimal Clincial Important Difference.- Met Patient Goals: Decrease falls and be like he used to be Based on the most recent progress report, the patient was to complete the last 2 visits then be discharged to his home exercise program. Reason for Discontinuation of Care: Patient has not returned to therapy or scheduled additional follow-up appointments. Marce Mann PT, DPT * Lowell Rodríguez, AQUATICS DIRECTOR - 08/15/2023 3:27 PM EDT Episode Visit Count: 12 Therapist That Will Accept/Oversee The Plan Of Care: Marce Mann PT DPT Start of Care Date: 06/15/23 Onset Date: 12/14/22 Plan of Care Certification Date: 08/03/23 Next Certification Due Date: 08/31/23 Patient Identified by Name and Date of : Yes REHABILITATION AND SPORTS THERAPY PHYSICAL THERAPY TREATMENT NOTE ASSESSMENT: Ronnie Lee tolerated the session with no issues. He demonstrated difficulty with balance during LORENZO--frequent patient and therapist corrected LOSS OF BALANCE , occasional tendency to scuff feet while walking and improvements in general fitness , balance, and function. Reviewed Active DF , and calf stretching to help drop foot. The patient will continue to benefit from ongoing skilled physical therapy D/C per P.T with current level of progress and Met goals. . PLAN FOR NEXT VISIT: D/C per P.T. at last Progress Note SUBJECTIVE: No issues. Feeling good. Ready for D/C from therapy today per the last Progress Note. . Pain: Pain Pain Level: 0 Post Treatment Pain Post Treatment Pain Level: 0 OBJECTIVE MEASURES WITH LEVEL OF FUNCTION: TREATMENT: Therapeutic Exercise: 1: Sci-fit x5 minutes L3; subjective info taken 2: B leg press 70# 3x10 (cues for controlled movement) 3: standing Airex hip abduction and extension 15x of each for ea LE 4: Leg Press sgl leg 35# 2 x 10 ea 5: Matrix sidestepping 17# 5x ea way, SBA to CGA 6: Multiple cone and Airex pad stepovers lateral 3x 12ft each way 8: heel to toe walk at rail 2 x20 ft 9: Standing hip flexor stretch raising same side arm as retro leg in split stand 3 x for 10 sec ea 10: wall cobra 4# ea handwith folded pillow behind back for a thoracic stretch 5 x 10 sec 11: Step hamstring stretch 3 x 15 sec 12: hip hinge chair squat 10x 18: LORENZO purple band, 5 UE oscillation on sgl foot, alternating 5x eachs Skilled Intervention: Patient was educated in proper exercise technique and purpose for exercises. Reviewed and educated patient on additions/changes for home exercise program as above (*). Skilled judgment was used in selection of appropriate interventions. Correct performance of therapeutic exercises was facilitated with verbal and visual cuing. Educated patient on rationale for performing exercises in regards to decreasing fatigue , improvingfitness, and including balance. Billing Therapeutic Exercise Treatment Minutes: 45 Skilled Treatment Time Minutes (timed and untimed codes): 45 Total Session Time (minutes): 45 Session Start Time : 1445 Session Stop Time : 1530 Lowell Rodríguez PTA documented in this encounterOur [facility] Of [facility]05-29-2024 History of Present illness Narrative* Lowell Rodríguez PTA - 08/08/2023 4:36 PM EDT Episode Visit Count: 11 Therapist That Will Accept/Oversee The Plan Of Care: Marce Mann PT, DPT Start of Care Date: 06/15/23 Onset Date: 12/14/22 Plan of Care Certification Date: 08/03/23 Next Certification Due Date: 08/31/23 Patient Identified by Name and Date of : Yes REHABILITATION AND SPORTS THERAPY PHYSICAL THERAPY TREATMENT NOTE ASSESSMENT: Ronnie Lee tolerated the session with no issues. He demonstrated difficulty with patterning on multi directional step outs, and improvements in LORENZO and addition of multidirectionalstep outs, sgl leg press, and eccentric quads without issues. The patient will continue to benefit from ongoing skilled physical therapy to progress toward set goals. PLAN FOR NEXT VISIT: Consider single leg leg press; consider R eccentric quad exercises; consider step reaction exercise SUBJECTIVE: Im doing good. No issues. I cut some logs at home. . Pain: Pain Pain Level: 0 OBJECTIVE MEASURES WITH LEVEL OF FUNCTION: TREATMENT: Therapeutic Exercise: 1: Sci-fit x5 minutes L3; subjective info taken 2: B leg press 70# 3x10 (cues for controlled movement) 3: standing Airex hip abduction and extension 15x of each for ea LE 4: Leg PRess sgl leg 35# 2 x 10 ea 5: Matrix sidestepping 17# 5x ea way, SBA to CGA 6: Multidirectional step outshalf way around the clock 5 x ea LE, one rail. 7: Retro stepping 5# ea hand with arm swing 2 x 40 ft 9: Standing hip flexor stretch raising same side arm as retro leg in split stand 3 x for 10 sec ea 10: wall cobra 4# ea handwith folded pillow behind back for a thoracic stretch 5 x 10 sec 11: Step hamstring stretch 3 x 15 sec 14: NK extension eccentric 8.75# 2 x 10 ea LE 18: LORENZO purple band, 5 UE oscillation on sgl foot, alternating 5x eachs Skilled Intervention: Patient was educated in proper exercise technique and purpose for exercises. Skilled judgment was used in selection of appropriate interventions. Correct performance of therapeutic exercises was facilitated with verbal and visual cuing. Educated patient on rationale for performing exercises in regards to decreasing fatigue , improvingfitness, including balance, and ROM and function . Billing Total Session Time (minutes): 45 Session Start Time : 1615 Session Stop Time : 1700 Lowell Rodríguez PTA documented in this encounterOur Lady Of Mercy [facility]05-24-2024 History of Present illness Narrative* Caroline Hood, PT - 08/03/2023 2:26 PM EDT Episode Visit Count: 10 Therapist That Will Accept/Oversee The Plan Of Care: Marce Mann, PT, DPT Start of Care Date: 06/15/23 Onset Date: 12/14/22 Plan of Care Certification Date: 08/03/23 Next Certification Due Date: 08/31/23 Patient Identified by Name and Date of : Yes REHABILITATION AND SPORTS THERAPY PHYSICAL THERAPY PROGRESS REPORT PLAN OF CARE UPDATE: Assessment: Ronnie Lee demonstrates moderate improvement in standing, walking, stair negotiation, and physical activities. He has progressed toward goals. Patient continues to present with impairments in balance, coordination, strength, and gait that interfere with recreational activities, physical activities, stair negotiation, walking in the community . Current prognosis is Good due to: current objective clinical presentation . He will benefit from continued skilled therapy services to meet the updated goals for this plan of care as noted below. Goals for Episode of Care: created on 06/15/23 through 08/31/2023 Updated: 08/03/2023 Patient will demonstrate increase in bilateral hip extension, right hip external rotation, and bilateral ankle dorsiflexion strength to 4+/5 during manual muscle testing in order to improve function for prior functional tasks. - Progressing Patient will report no falls. - Met Improve score on Timed Up and Go Test to 9.06 seconds to reflect decreased fall risk. -Progressing Improve score on Dynamic Gait index to to reflect decreased fall risk. - Met [place] in home exercise program including cardiovascular exercise. - Progressing Patient will improve his/her AM-PAC T-scale score by 4 points to indicate a Minimal Clincial Important Difference.- Met Patient Goals: Decrease falls and be like he used to be Planned Interventions, Frequency, and Duration: 1x/week, 4 weeks Total Number of Visits Planned: 4 Patient to be seen for Therapeutic exercise (50859), Neuromuscular re-education (40180), Manual therapy (11646), Therapeutic activities (68571), Self-alf management (72267), Gait Training (81235), Body Mechanics Training PLAN FOR NEXT VISIT: Consider single leg leg press; consider R eccentric quad exercises; consider step reaction exercise SUBJECTIVE: Pt denies any recent falls. He cannot remember any close stumbles or LOB. He performs his HEP a couple times per week and he has become more confident with housework and yardwork around the home. He denies use of AD around home or in community.. Functional Limitations: recreational activities, physical activities, stair negotiation, walking inthe community Pain: Pain Pain Level: 0 Post Treatment Pain Post Treatment Pain Level: 0 PROMIS Scales T-scores: mean of general population = 50. 5 points is clinically meaningfully difference Percentiles provide an indication of how the patient's score ranks in relation to the general population. Higher percentile rankings indicate better function/quality of life. 50th percentile is the average of the general population and indicates half of respondents had a worse score. OBJECTIVE MEASURES WITH LEVEL OF FUNCTION: LE Strength R Hip Extension: 4-/5 R Hip Flexion (L2): 4+/5 R Hip ABduction: 4/5 R Hip ADduction: 5/5 R Hip Internal Rotation: 5/5 R Hip External Rotation: 4/5 R Knee Extension (L3): 5/5 R Knee Flexion: 4+/5 R Ankle Dorsiflexion (L4): 4+/5 R Ankle Plantar Flexion: 4+/5 L Hip Extension: 4-/5 L Hip Flexion (L2): 4+/5 L Hip ABduction: 5/5 L Hip ADduction: 5/5 L Knee Extension (L3): 5/5 L Knee Flexion: 5/5 L Ankle Dorsiflexion (L4): 5/5 L Ankle Plantarflexion Functional Strength (S1): 5 Gait Gait: Independent Gait Device: None Gait Deviations: General Deviations Gait Deviations Right Lower Extremity: Heel strike during initial stance decreased, Foot clearance decreased Gait Observation: occasional R foot drag when fatigued Functional Performance Test Results 5 Times Sit to Stand Test : 11.49 sec (Use of B UE support) Timed Up and Go (sec): 9.36 sec 4 Stage Balance Test Narrow base of support (sec): 30 sec Semi-tandem base of support (sec): 30 sec Tandem base of support (sec): 20 sec (3x trials achieved 25-30 seconds on bilateral LE with 3rd attempt) Single leg stance - right (sec): 5 sec Single leg stance - left (sec): 5 sec Dynamic Gait Index Gait level surface : 3 - Normal- walks 20' no assist device, good speed, no imbalance, normal gait pattern Change in gait speed: 3 - Normal- able to smoothly change walking speed without loss of balance or gait deivations. Shows significant difference in walking speeds Gait and horizontal head turns: 3 - Normal- performs R/L head turns smoothly with no change in gait Gait and vertical head turns: 3 - Normal- performs up/down head turns smoothly with no change in gait Gait and pivot: 3 - Normal- pivot turn safely within 3 sec, stops quickly, no loss of balance Step over obstacle: 3 - Normal- is able to step over box without changing speed, no evidence of imbalance Step around obstacle: 3 - Normal- able to walk around cones safely without changing gait speed, no evidence of imbalance Steps: 3 - Normal- alternating feet, no rail Dynamic Gait Index Total: 24 TREATMENT: Therapeutic Exercise: 1: Sci-fit x5 minutes L3; subjective info taken 2: B leg press 70# 3x10 (cues for controlled movement) 3: standing Airex hip abduction and extension 15x of each for ea LE 5: Matrix sidestepping 17# 5x ea way, SBA to CGA 8: heel to toe walk at rail 2 x20 ft Skilled Intervention: Patient was educated in proper exercise technique and purpose for exercises. Skilled judgment was used in selection of appropriate interventions. Correct performance of therapeutic exercises was facilitated with verbal and visual cuing. Manual Therapy: 2: Re-assessment of goals this date including balance testing, MMT, HEP compliance, and fall risk. Skilled Intervention: Manual skills to improve joint mobility, ROM, and decrease pain. Utilized anatomy knowledge of the therapist, and assessment of patient's response to intervention. Neuromuscular Re-Education: 1: Alternating cone taps 3x20; gait belt CGA 2: Step ups without UE support 2x10 ea LE; gait belt CGA 3: Lateral step over foam roll 2x10, gait belt CGA Skilled Intervention: Skilled judgment used to assess appropriate program for balance and coordination activity. Ensured patient safety with use of gait belt. Billing Therapeutic Exercise Treatment Minutes: 30 Manual TherapyTreatment Minutes: 15 Skilled Treatment Time Minutes (timed and untimed codes): 45 Total Session Time (minutes): 46 Session Start Time : 1344 Session Stop Time : 1430 Caroline Hood PT, DPT documented in this encounterOur [facility]05-16-2024 Telephone encounter Note * Telephone Encounter - Judy Vang MA - 07/26/2023 3:24 PM EDT Left message on identifiable voicemail that it is recommended but if wanted to call back to ask fora nurse. Judy Vang MA July 26, 2023 3:26 PM [facility] Miscellaneous Notes* Telephone Encounter - Judy Vang MA - 07/26/2023 3:24 PM EDT Left message on identifiable voicemail that it is recommended but if wanted to call back to ask fora nurse. Judy Vang MA July 26, 2023 3:26 PM * Telephone Encounter - Isidra Neri APRN.CNS - 07/26/2023 3:09 PM EDT Yes. RSV is a respiratory virus that affects very young children and older adults most severely. * Telephone Encounter - Brian Chanel RN - 07/26/2023 12:05 PM EDT reports pharmacy is asking patient to get the RSV vaccine. Asking if pcp thinks he should? Please phone with reply. documented in this encounterOur Lady Of [facility]cy [facility]05-16-2024 Telephone encounter Note * Telephone Encounter - Isidra Neri APRN.CNS - 07/26/2023 3:09 PM EDT Yes. RSV is a respiratory virus that affects very young children and older adults most severely. [facility] Work Phone: [phone] 999-914405-16-2024 Telephone encounter Note* Telephone Encounter - Brian Chanel RN - 07/26/2023 12:05 PM EDT reports pharmacy is asking patient to get the RSV vaccine. Asking if pcp thinks he should? Please phone with reply. [facility] History of Present illness Narrative* Lowell Rodríguez, AQUATICS DIRECTOR - 07/25/2023 2:48 PM EDT Episode Visit Count: 9 Therapist That Will Accept/Oversee The Plan Of Care: Marce Mann, PT, DPT Start of Care Date: 06/15/23 Onset Date: 12/14/22 Plan of Care Certification Date: 06/15/23 Next Certification Due Date: 07/27/23 Patient Identified by Name and Date of : Yes REHABILITATION AND SPORTS THERAPY PHYSICAL THERAPY TREATMENT NOTE ASSESSMENT: Ronnie Lee tolerated the session with no issues. He demonstrated difficulty with sequencing of feet during modified [place]/grapevine, standing hip flexor stretch , and sidesteppingover cones and Airex. Requires STAND BY ASSIST during retro walking with arm swing. Improvements inoverall balance, strength per progressions and TUG. The patient will continue to benefit from ongoing skilled physical therapy for reassessment by supervising therapist. Likely D/C per progress toward goals and confidence to continue home exercise program while being active. PLAN FOR NEXT VISIT: P.T. PRogfress Note next session then D/C per patient progress and asymptomatic. Exercises PRN if time. Standing hip flexor stretchmultiple cones F/B and lateral, walking around objects, walking withhead turns, tandem walk with sticks. Balance and strengthening. Consider Scifit recumbant, incline gastroc stretch, airex balance, heel raise on step, Bridge with band above knees, hip hinge, standing cobra, step up, lateral walk, single leg stance, etc SUBJECTIVE: Im doing well. I am active at home. I do the HEP and other therapy exercises. I dont think I need any more. of them. I am ok to finish PT next sunday . I have several logs that need split/cleaned up. . Pain: Pain Pain Level: 0 Post Treatment Pain Post Treatment Pain Level: 0 OBJECTIVE MEASURES WITH LEVEL OF FUNCTION: TREATMENT: Therapeutic Exercise: 1: NuStep seat 13, level 2, 4 min with UEs 2: Gastroc wedge stretch at 2x 30 seconds 3: standing Airex hip abduction and extension 15x of each for ea LE 4: Airex SLS 8 x 5 sec drumming finger tips alternating. 5: Matrix sidestepping 17# 5x ea way, SBA to CGA 6: Multiple cone and Airex pad stepovers lateral 3x 12ft each way 7: Retro stepping 5# ea hand with arm swing 2 x 40 ft 8: heel to toe walk at rail 2 x20 ft 9: Standing hip flexor stretch raising same side arm as retro leg in split stand 3 x for 5-10 sec ea 10: wall cobra 4# ea handwith folded pillow behind back for a thoracic stretch 5 x 10 sec 11: Step hamstring stretch 3 x 15 sec 12: hip hinge chair squat 10x 13: seated hip IR/ER orange band 15x of each for Ea LE 14: modifiesd grapevine--no crossover [address] 15: seated (B) ER/Abd green band 10x 17: seated DF active then with strap AAROM to finish the motion 10x 18: LORENZO purple band, 5 UE oscillation on sgl foot, alternating 5x eachs Skilled Intervention: Patient was educated in proper exercise technique and purpose for exercises. Reviewed and educated patient on additions/changes for home exercise program as above (*). Skilled judgment was used in selection of appropriate interventions. Correct performance of therapeutic exercises was facilitated with verbal and visual cuing. Educated patient on rationale for performing exercises in regards to decreasing fatigue , improvingfitness, and including balance. Billing Therapeutic Exercise Treatment Minutes: 45 Skilled Treatment Time Minutes (timed and untimed codes): 45 Total Session Time (minutes): 45 Session Start Time : 1400 Session Stop Time : 1445 Lowell Rodríguez PTA documented in this encounterOur [facility] Of [facility]-13-[facility] History of Present illness Narrative* Lowell Rodríguez PTA - 07/23/2023 3:04 PM EDT Episode Visit Count: 8 Therapist That Will Accept/Oversee The Plan Of Care: Marce Mann PT, DPT Start of Care Date: 06/15/23 Onset Date: 12/14/22 Plan of Care Certification Date: 06/15/23 Next Certification Due Date: 07/27/23 Patient Identified by Name and Date of : Yes REHABILITATION AND SPORTS THERAPY PHYSICAL THERAPY TREATMENT NOTE ASSESSMENT: Ronnie Lee tolerated the session with no issues. He demonstrated difficulty with Coordination of step sequence during floor ladder drills, and improvements in LORENZO balance, and during a multi-faceted balance oriented session. The patient will continue to benefit from ongoing skilled physical therapy to progress toward set goals. PLAN FOR NEXT VISIT: Standing hip flexor stretchmultiple cones F/B and lateral, walking around objects, walking with head turns, tandem walk with sticks. Balance and strengthening. Consider Scifit recumbant, incline gastroc stretch, airex balance, heel raise on step, Bridge with band above knees, hip hinge, standing cobra, step up, lateral walk, single leg stance, etc SUBJECTIVE: Im doing good. The workouts have been good. . Pain: Pain Pain Level: 0 Post Treatment Pain Post Treatment Pain Level: 0 OBJECTIVE MEASURES WITH LEVEL OF FUNCTION: TREATMENT: Therapeutic Exercise: 1: NuStep seat 13, level 2, 4 min with UEs 2: Gastroc wedge stretch at 2x 30 seconds 3: standing Airex hip abduction and extension 15x of each for ea LE 4: Airex SLS 8 x 5 sec drumming finger tips alternating. 7: Retro stepping 5# ea hand with arm swing 2 x 40 ft 8: heel to toe walk at rail 1 x 40 ft 9: Standing hip flexor stretch raising same side arm as retro leg in split stand 3 x 10-15 sec ea 10: wall cobra 4# ea handwith folded pillow behind back for a thoracic stretch 5 x 10 sec 12: hip hinge chair squat 10x 13: seated hip IR/ER orange band 15x of each for Ea LE 15: Floor ladder for step coordination/balance, various patterns 6-7 min total 16: 6 step and punch up with opp UE 3#, 10x L step up and 10 x R step up 18: LORENZO purple band, 5 UE oscillation on sgl foot, alternating 5x eachs Skilled Intervention: Patient was educated in proper exercise technique and purpose for exercises. Skilled judgment was used in selection of appropriate interventions. Correct performance of therapeutic exercises was facilitated with verbal and visual cuing. Educated patient on rationale for performing exercises in regards to improving fitness, including balance, and ROM and function . Billing Therapeutic Exercise Treatment Minutes: 45 Skilled Treatment Time Minutes (timed and untimed codes): 45 Total Session Time (minutes): 45 Session Start Time : 1405 Session Stop Time : 1450 Lowell Rodríguez PTA documented in this encounterOur [facility] Of [facility]05-08-[facility] History of Present illness Narrative* Lowell Rodríguez PTA - 07/18/2023 2:36 PM EDT Episode Visit Count: 7 Therapist That Will Accept/Oversee The Plan Of Care: Marce Mann, PT, DPT Start of Care Date: 06/15/23 Onset Date: 12/14/22 Plan of Care Certification Date: 06/15/23 Next Certification Due Date: 07/27/23 Patient Identified by Name and Date of : Yes REHABILITATION AND SPORTS THERAPY PHYSICAL THERAPY TREATMENT NOTE ASSESSMENT: Ronnie Lee tolerated the session with no issues. He demonstrated difficulty with balance progressions and required STAND BY ASSIST to CONTACT GUARD ASSIST, and improvements in progressions in dynamic activities. .Benefit from review of home exercise program and would be good to review again. The patient will continue to benefit from ongoing skilled physical therapy to progress toward set goals. PLAN FOR NEXT VISIT: Standing hip flexor stretchmultiple cones F/B and lateral, walking around objects, walking with head turns, tandem walk with sticks. Balance and strengthening. Consider Scifit recumbant, incline gastroc stretch, airex balance, heel raise on step, Bridge with band above knees, hip hinge, standing cobra, step up, lateral walk, single leg stance, etc SUBJECTIVE: no issues from PT exercises. My activity at home varies depending upon whet needs done. . Pain: Pain Pain Level: 0 Post Treatment Pain Post Treatment Pain Level: 0 OBJECTIVE MEASURES WITH LEVEL OF FUNCTION: TREATMENT: Therapeutic Exercise: 1: NuStep seat 13, level 2, 4 min with UEs 2: Gastroc wedge stretch at 2x 30 seconds 3: standing Airex hip abduction and extension 15x of each for ea LE 4: Airex SLS 8 x 5 sec drumming finger tips alternating. 6: Multiple cone and Airex pad stepovers lateral 3x 12ft each way 7: Retro stepping 5# ea hand with arm swing 2 x 40 ft 8: heel to toe walk at rail 1 x 40 ft 9: Review of HEP 10: wall cobra 4# ea handwith folded pillow behind back for a thoracic stretch 5 x 10 sec 12: hip hinge chair squat 10x 13: seated hip IR/ER orange band 10x of each for Ea LE 14: modifiesd grapevine--no crossover [address] 16: 6 step and punch up with opp UE 3#, 10x L step up and 10 x R step up 17: Added seated DF active then with strap AAROM to finish the motion 10x 18: LORENZO purple band, 5 UE oscillation on sgl foot, alternating 5x eachs Skilled Intervention: Patient was educated in proper exercise technique and purpose for exercises. Reviewed and educated patient on additions/changes for home exercise program as above (*). Skilled judgment was used in selection of appropriate interventions. Correct performance of therapeutic exercises was facilitated with verbal and visual cuing. Educated patient on rationale for performing exercises in regards to decreasing fatigue , improvingfitness, including balance, and ROM and function . Manual Therapy: 1: side lying hip flexor stretch 3 x 30 sec each Skilled Intervention: Manual skills to improve joint mobility, ROM, and decrease pain. Utilized anatomy knowledge of the therapist, and assessment of patient's response to intervention. Billing Therapeutic Exercise Treatment Minutes: 39 Manual TherapyTreatment Minutes: 6 Skilled Treatment Time Minutes (timed and untimed codes): 45 Total Session Time (minutes): 45 Session Start Time : 1400 Session Stop Time : 1445 Lowell Rodríguez PTA documented in this encounterOur [facility] Of [facility]05-06-[facility] History of Present illness Narrative* Lowell Rodríguez PTA - 07/16/2023 2:05 PM EDT Episode Visit Count: 6 Therapist That Will Accept/Oversee The Plan Of Care: Marce Mann PT, DPT Start of Care Date: 06/15/23 Onset Date: 12/14/22 Plan of Care Certification Date: 06/15/23 Next Certification Due Date: 07/27/23 Patient Identified by Name and Date of : Yes REHABILITATION AND SPORTS THERAPY PHYSICAL THERAPY TREATMENT NOTE ASSESSMENT: Ronnie Lee tolerated the session with being challenged by progressions to Matrix sidestepping, retro stepping with hand weights and arm swing and side stepping over multiple cones. He demonstrated difficulty with consistent motor planning for lateral step overs, controlling speed with retro stepping plus arm swing, 1 therapist corrected LOSS OF BALANCE during matris side stepping , and hip flexors remain very tight, Improvements in single leg stance and walking with head turns. The patient will continue to benefit from ongoing skilled physical therapy to progress toward set goals. PLAN FOR NEXT VISIT: Standing hip flexor stretchmultiple cones F/B and lateral, walking around objects, walking with head turns, tandem walk with sticks. Balance and strengthening. Consider Scifit recumbant, incline gastroc stretch, airex balance, heel raise on step, Bridge with band above knees, hip hinge, standing cobra, step up, lateral walk, single leg stance, etc SUBJECTIVE: Doing good. I havent been too active this week. I am almost 83 you know. . Pain: Pain Pain Level: 0 Post Treatment Pain Post Treatment Pain Level: 0 OBJECTIVE MEASURES WITH LEVEL OF FUNCTION: TREATMENT: Therapeutic Exercise: 1: NuStep seat 13, level 2, 4 min with UEs 2: Gastroc wedge stretch at 2x 30 seconds 3: standing Airex hip abduction and extension 15x of each for ea LE 4: Airex SLS 8 x 5 sec finger tips alternating. 5: Matrix sidestepping 17# 5x ea way, SBA to CGA 6: Multiple cone and Airex pad stepovers forward and lateral 2x each way 7: Retro stepping 5# ea hand with arm swing 2 x 40 ft 8: heel to toe walk at rail 1 x 40 ftno rail 10: wall cobra 4# ea handwith folded pillow behind back for a thoracic stretch 5 x 10 sec 11: Walking with head turns and look up /down. 1 x 100ft of each. 12: hip hinge chair squat 10x 13: seated hip IR/ER 10x of each for Ea LE 15: Floor ladder for step coordination/balance, various patterns 6-7 min total 16: 6 step and punch up with opp UE 3#, 10x L step up and 10 x R step up Skilled Intervention: Patient was educated in proper exercise technique and purpose for exercises. Reviewed and educated patient on additions/changes for home exercise program as above (*). Skilled judgment was used in selection of appropriate interventions. Correct performance of therapeutic exercises was facilitated with verbal and visual cuing. Educated patient on rationale for performing exercises in regards to decreasing fatigue , improvingfitness, including balance, and ROM and function . Manual Therapy: 1: side lying hip flexor stretch 3 x 30 sec each Skilled Intervention: Manual skills to improve joint mobility, ROM, and decrease pain. Utilized anatomy knowledge of the therapist, and assessment of patient's response to intervention. Home Exercise Program Assigned: 1: Med Bridge pics for toe stands, toe raises, sgl 6 inch cone step over/back, and Stair (B) calf stretch Billing Therapeutic Exercise Treatment Minutes: 39 Manual TherapyTreatment Minutes: 6 Skilled Treatment Time Minutes (timed and untimed codes): 45 Total Session Time (minutes): 45 Session Start Time : 1400 Session Stop Time : 1445 Lowell Rodríguez PTA documented in this encounterOur [facility] Of [facility]05-01-2024 History of Present illness Narrative* Lowell Rodríguez PTA - 07/11/2023 2:05 PM EDT Episode Visit Count: 5 Therapist That Will Accept/Oversee The Plan Of Care: Marce Mann, PT, DPT Start of Care Date: 06/15/23 Onset Date: 12/14/22 Plan of Care Certification Date: 06/15/23 Next Certification Due Date: 07/27/23 Patient Identified by Name and Date of : Yes REHABILITATION AND SPORTS THERAPY PHYSICAL THERAPY TREATMENT NOTE ASSESSMENT: Ronnie Lee tolerated the session with no issues. He demonstrated difficulty with floor ladder especially laterally vs last session but possibly more fatigue from the session. and improvements in did well with all balance and dynamic progressions. Seaman on handrail for single leg balance activities. . The patient will continue to benefit from ongoing skilled physical therapy to progress toward set goals. PLAN FOR NEXT VISIT: multiple cones F/B and lateral, walking around objects, walking with head turns, tandem walk with sticks. Balance and strengthening. Consider Scifit recumbant, incline gastroc stretch, airex balance,heel raise on step, Bridge with band above knees, hip hinge, standing cobra, step up, lateral walk,single leg stance, etc SUBJECTIVE: I was fine after last session. No sorenss or fatigue . Pain: Pain Pain Level: 0 Post Treatment Pain Post Treatment Pain Level: 0 OBJECTIVE MEASURES WITH LEVEL OF FUNCTION: TREATMENT: Therapeutic Exercise: 1: NuStep seat 13, level 2, 4 min with UEs 2: Gastroc wedge stretch at 2x 30 seconds 3: standing Airex hip abduction and extension 10x of each for ea Le 4: Airex SLS 8 x 5 sec finger tips alternating. 5: AIrex EC NBOS 3 x 20 sec 6: Multiple cone and Airex pad stepovers forward and lateral 2x each way 7: highstepping with pause for balance 2 x 12 ft 8: heel to toe walk at rail 2 x 12 ft 9: side lying clamshells 15xand abduction 10x of ea for ea side 10: wall cobra with folded pillow behind back for a thoracic stretch 5 x 10 sec 11: Walking with head turns and look up /down. 1 x 100ft of each. 12: hip hinge chair squat 10x 16: 6 step and punch up with opp UE 3#, 10x L step up and 10 x R step up Skilled Intervention: Patient was educated in proper exercise technique and purpose for exercises. Reviewed and educated patient on additions/changes for home exercise program as above (*). Skilled judgment was used in selection of appropriate interventions. Correct performance of therapeutic exercises was facilitated with verbal and visual cuing. Educated patient on rationale for performing exercises in regards to decreasing fatigue , improvingfitness, including balance, and ROM and function . Manual Therapy: 1: side lying hip flexor stretch 3 x 30 sec each Skilled Intervention: Manual skills to improve joint mobility, ROM, and decrease pain. Utilized anatomy knowledge of the therapist, and assessment of patient's response to intervention. Billing Therapeutic Exercise Treatment Minutes: 39 Manual TherapyTreatment Minutes: 6 Skilled Treatment Time Minutes (timed and untimed codes): 45 Total Session Time (minutes): 45 Session Start Time : 1400 Session Stop Time : 1445 Lowell Rodríguez PTA documented in this encounterOur [facility] Of [facility]04-30-[facility]24 History of Present illness Narrative* Abigail Moss, - 07/10/2023 9:43 AM EDT Images from the original note were not included. [facility] [place] DEPARTMENT OF VASCULAR SURGERY OUTPATIENT VISIT DATE July 10, 2023 OUTPATIENT VISIT TYPE ESTABLISHED SERVICE DATE: 07/10/2023 SERVICE TIME: 9:45 AM PRIMARY CARE PHYSICIAN: Zachary Kennedy MD HISTORY OF PRESENT ILLNESS: Mr. Lee is a 82 year old male who presents today for a vascular surgery follow-up for peripheral arterial disease. He denies claudication or rest pain. He admits to right sided weakness and stroke while in [place]. 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 Hyperlipidemia Impacted cerumen [place] (myocardial infarction) ([facility]) , , '03, '04 Pneumonia 03/08/2011 PAST SURGICAL HISTORY Procedure Laterality Date ANGIOPLASTY 02/2004 with stents ARTHRP ACETBLR/PROX FEM PROSTC AGRFT/ALGRFT Right CABG (2) VEIN GRAFTS & ARTERIAL GRAFT(S 09/09/1997 COLONOSCOPY 07/26/2022 COLONOSCOPY SCREENING 08/09/2022 Dr Du CORONARY ARTERY DILATION 03/12/2010 3 stents EGD 07/26/2022 IMPLANTABLE CARDIOVERTER DEFIBRILLATOR 09/05/2010 duel chamber REMV CATARACT EXTRACAP,INSERT LENS Bilateral SOCIAL HISTORY Social History Tobacco Use Smoking status: Never Smokeless tobacco: Never Vaping Use Vaping Use: Never used Substance Use Topics Alcohol use: No Drug use: No MEDICATIONS: pantoprazole DR (PROTONIX) 40 mg tablet Take 1 tablet by mouth once daily. losartan (COZAAR) 50 mg tablet Take 50 mg by mouth once daily. ferrous sulfate 325 mg (65 mg iron) tablet Take 325 mg by mouth every other day. rosuvastatin (CRESTOR) 5 mg tablet Take 5 mg by mouth once daily. OTC PRODUCT 1,000 mg twice daily. Tumeric complex Lancets lancets Test blood sugar(s) 1 times daily. Dx: Type 2 DM - Controlled E11.9 Insulin: No blood sugar diagnostic (BLOOD GLUCOSE TEST) test strip Test blood sugar(s) 1 times daily. Dx: Type 2 DM - Controlled E11.9 Insulin: No sotalol (BETAPACE) 80 mg tablet Take 1 1/2 tablets by mouth twice daily. apixaban (ELIQUIS) 5 mg tab(s) Take 5 mg by mouth twice daily. cyanocobalamin (VITAMIN B-12) 1,000 mcg tab Take 1,000 mcg by mouth once daily. VITAMIN B COMPLEX-100 ORAL Take 1 tablet by mouth once daily. clopidogrel (PLAVIX) 75 mg tablet Take 75 mg by mouth once daily. SITagliptin-metFORMIN (JANUMET) 50-1,000 mg per tablet Take 0.5 tablets by mouth twice daily. UBIDECARENONE (COQ-10 ORAL) Take 400 mg by mouth once daily. ALLERGIES: ALLERGIES Allergen Reactions Avandamet [Rosiglit* Intolerance refuses Iodine Anaphylaxis Oxycodone GI Upset, Vomiting Dizziness Promethazine-Codeine Intolerance Low BP, vomited PHYSICAL EXAM: BP 112/66 (BP Site: Left Arm, BP Position: Sitting, BP Cuff Size: Regular Adult) Pulse 71 SpO2 100% Gen- no distress Ext- no significant edema, no ulcerations Diagnostic tests reviewed for today's visit: Most recent labs Most recent imaging PVRs- Compared to prior study of 06/13/2022, No change in ankle waveforms. RIGHT SIDE Resting right ankle brachial index: 0.72 Right toe brachial index: 0.43 Abnormal ankle brachial index at rest diagnostic of peripheral artery disease. Abnormal toe brachial index at rest is evidence of peripheral artery disease. Right ankle: Mild disease at rest. Right small vessel disease. LEFT SIDE Resting left ankle brachial index: 0.85 Left toe brachial index: 0.53 Abnormal ankle brachial index at rest diagnostic of peripheral artery disease. Abnormal toe brachial index at rest is evidence of peripheral artery disease. Left ankle: Mild disease at rest. Left small vessel disease. IMPRESSION: Mr. Lee is a 82 year old male with peripheral arterial disease . PLAN and RECOMMENDATIONS: PVR are stable. Continue current blood pressure and cholesterol control Will get records from [place] and he may need carotid duplex Continue PT and walking as tolerated SIGNATURE: Abigail Moss DO PATIENT NAME: Ronnie Lee DATE: July 10, 2023 TIME: 9:45 AM documented in this encounterOur Lady Of [facility]04-29-2024 History of Present illness Narrative* Lowell Rodríguez, AQUATICS DIRECTOR - 07/09/2023 2:01 PM EDT Episode Visit Count: 4 Therapist That Will Accept/Oversee The Plan Of Care: Marce Mann, PT, DPT Start of Care Date: 06/15/23 Onset Date: 12/14/22 Plan of Care Certification Date: 06/15/23 Next Certification Due Date: 07/27/23 Patient Identified by Name and Date of : Yes REHABILITATION AND SPORTS THERAPY PHYSICAL THERAPY TREATMENT NOTE ASSESSMENT: Ronnie Lee tolerated the session with no issues. He demonstrated difficulty with balance during single leg stance without rail so finger tips used, and with lifting trailing leg over cones. and improvements in Balance progressions using floor ladder. . The patient will continue tobenefit from ongoing skilled physical therapy to progress toward set goals. PLAN FOR NEXT VISIT: multiple cones F/B and lateral, walking around objects, walking with head turns, tandem walk with sticks. Balance and strengthening. Consider Scifit recumbant, incline gastroc stretch, airex balance,heel raise on step, Bridge with band above knees, hip hinge, standing cobra, step up, lateral walk,single leg stance, etc SUBJECTIVE: Doing good. No issues from last session. No pain. no concerns .Episode Visit Count: 4 Therapist That Will Accept/Oversee The Plan Of Care: Marce Mann PT, DPT Start of Care Date: 06/15/23 Onset Date: 12/14/22 Plan of Care Certification Date: 06/15/23 Next Certification Due Date: 07/27/23 Patient Identified by Name and Date of : Yes REHABILITATION AND SPORTS THERAPY PHYSICAL THERAPY TREATMENT NOTE Pain: Pain Pain Level: 0 Post Treatment Pain Post Treatment Pain Level: 0 OBJECTIVE MEASURES WITH LEVEL OF FUNCTION: TREATMENT: Therapeutic Exercise: 1: NuStep seat 13, level 1, 4 min with UEs 2: Gastroc wedge stretch at 2x 30 seconds 4: Airex SLS 8 x 5 sec finger tips alternating. 5: Airex 1/2 tandem with head turns 30 sec, and look up/down 30 sec 6: Multiple cone stepovers forward and lateral 2x each way 7: highstepping with pause for balance 2 x 12 ft 8: heel to toe walk at rail 2 x 12 ft 9: side lying clamshells 15xand abduction 10x of ea for ea side 10: wall cobra with folded pillow behind back for a thoracic stretch 5 x 10 sec 11: Walking with head turns and look up /down. 5 x 50ft of each. 12: hip hinge chair squat 10x 13: seated hip IR/ER 10x of each for Ea LE 15: Floor ladder for step coordination/balance, various patterns 6-7 min total Skilled Intervention: Patient was educated in proper exercise technique and purpose for exercises. Reviewed and educated patient on additions/changes for home exercise program as above (*). Correct performance of therapeutic exercises was facilitated with verbal and visual cuing. Educated patient on rationale for performing exercises in regards to decreasing fatigue , improvingfitness, including balance, and ROM and function . Manual Therapy: 1: side lying hip flexor stretch 3 x 30 sec each Skilled Intervention: Manual skills to improve joint mobility, ROM, and decrease pain. Utilized anatomy knowledge of the therapist, and assessment of patient's response to intervention. Billing Therapeutic Exercise Treatment Minutes: 39 Manual TherapyTreatment Minutes: 6 Skilled Treatment Time Minutes (timed and untimed codes): 45 Total Session Time (minutes): 45 Session Start Time : 1400 Session Stop Time : 1445 Lowell Rodríguez PTA documented in this encounterOur Lady Of [facility]04-29-2024 History of Present illness Narrative* Brian Cook PA-C - 07/09/2023 7:54 AM EDT 82 year old male here for follow up including hx CHF with reduced EF 30 to 35%, Extensive coronary artery disease status post JACOBSON to LAD 1997, PCI, CHANTE to circumflex 2002, CHANTE toin-stent lesion RCA 2010, ICD placement with generator replacement in 2017, moderate diffuse hypokinesis, chronic anticoagulation, buttermaker continuous churn antiarrhythmic therapy with sotalol, CLL currently managedby hematology on ibrutinib which has been stopped due to remission, chronic iron malabsorption withiron deficiency anemia, stage 3a renal, controlled type 2 DM, asking for follow-up from CVA which occurred while over wintering in [place] in December. 12/14/2022 Cardiology visit with Nathaniel Murillo CNP 01/01/[address] Juan J Ramsey [place], [place] Also is followed [facility] with scanned lab from 02/27/2023 Extensive records from multiple sites. 06/15/2023 OT/ST Daughter thinks had a stroke prior to driving to [place]. He states , Doing fine. Has essential tremor. Food flies at dinner sometimes, right hand is worse Cardiovascular interval hx: no changes Current meds: Losartan 50mg daily Sotolol 80mg Rosuvastin 5mg daily HS Use of NTG: No Chest pain, arm, jaw pain, neck, or upper back pain suggestive of angina: No. SOB: No Dyspnea with exertion: No orthopnea: No Cough : No racing or irregular heartbeats: No palpitations: No syncopal sx: No Headache: No Unexplainable fatigue: does have fatigue Leg swelling: No Nausea: No diaphoresis: No Heartburn: No Claudication: No Smoking: No Following Low cholesterol, high fiber diet? No If on statin: muscle aches? No If on statin: GI sx or diarrhea? No Additional history no interval changes. . Lab review: Last 3 Encounter BP Readings: Date: BP: 06/25/2023 124/76 05/25/2023 118/62 12/22/2022 136/70 Having trouble with right knee getting up and down from the couch. Right knee seems weaker Right foot drags, right hand seems a little weaker Had fall when backfrom [place], fell in driveway. Hemoglobin A1C (%) Date Value 12/22/2022 6.9 06/15/2022 5.8 05/21/2021 6.5 ) HISTORIES FAMILY HISTORY Problem Relation Age of Onset Heart Father Cancer Mother Diabetes Sister Diabetes Other Diabetes Other Diabetes Daughter prediabetic 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 Hyperlipidemia Impacted cerumen [place] (myocardial infarction) ([facility]) '93, '98, '03, '04 Pneumonia 03/08/2011 PAST SURGICAL HISTORY Procedure Laterality Date ANGIOPLASTY 02/2004 with stents ARTHRP ACETBLR/PROX FEM PROSTC AGRFT/ALGRFT Right CABG (2) VEIN GRAFTS & ARTERIAL GRAFT(S 09/09/1997 COLONOSCOPY 07/26/2022 COLONOSCOPY SCREENING 08/09/2022 Dr Du CORONARY ARTERY DILATION 03/12/2010 3 stents EGD 07/26/2022 IMPLANTABLE CARDIOVERTER DEFIBRILLATOR 09/05/2010 duel chamber REMV CATARACT EXTRACAP,INSERT LENS Bilateral Social History Tobacco Use Smoking status: Never Smokeless tobacco: Never Vaping Use Vaping Use: Never used Substance Use Topics Alcohol use: No Drug use: No ACTIVE PROBLEM LIST Cll (Chronic Lymphocytic Leukemia) ([facility]) Chronic Atrial Fibrillation ([facility]) Gerd Without Esophagitis Mixed Hyperlipidemia Coronary Artery Disease Due to Lipid Rich Plaque Status Post Coronary Artery Stent Placement Type 2 Diabetes Mellitus With Chronic Kidney Disease, Without Long-Term Current Use of Insulin (Hcc) Iron Deficiency Anemia Due to Chronic Blood Loss Iron Malabsorption Pad (Peripheral Artery Disease) (Hcc) Stage 3 Chronic Kidney Disease (Hcc) Icd (Implantable Cardioverter-Defibrillator) in Place Ischemic Cardiomyopathy Platelets Decreased (Hcc) Acute Combined Systolic and Diastolic Heart Failure (Hcc) Primary Hypertension Gastrointestinal Hemorrhage Associated With Intestinal Diverticulosis Anemia Arthritis Congestive Heart Failure (Hcc) Dyslipidemia Hearing Loss High Thyroid Stimulating Hormone (Tsh) Level Hip Pain History of Chronic Lymphocytic Leukemia History of Repair of Hip Joint Scaler Packer (Current) Use of Anticoagulants Myocardial Infarction (Hcc) Osteoarthritis of Hip Paroxysmal Ventricular Tachycardia (Hcc) Pneumonia Recurrent Coronary Arteriosclerosis After Percutaneous Transluminal Coronary Angioplasty Sensorineural Hearing Loss (Snhl) of Both Ears Underweight Chronic Ischemic Left Anterior Cerebral Artery Stroke Impairment of Balance Impaired Flexibility of Lower Extremity Weakness Current Outpatient Medications Medication Sig Dispense Refill losartan (COZAAR) 50 mg tablet Take 50 mg by mouth once daily. ferrous sulfate 325 mg (65 mg iron) tablet Take 325 mg by mouth every other day. rosuvastatin (CRESTOR) 5 mg tablet Take 5 mg by mouth once daily. OTC PRODUCT 1,000 mg twice daily. Tumeric complex blood sugar diagnostic (BLOOD GLUCOSE TEST) test strip Test blood sugar(s) 1 times daily. Dx: Type 2 DM - Controlled E11.9 Insulin: No 50 Strip 11 sotalol (BETAPACE) 80 mg tablet Take 1 1/2 tablets by mouth twice daily. apixaban (ELIQUIS) 5 mg tab(s) Take 5 mg by mouth twice daily. cyanocobalamin (VITAMIN B-12) 1,000 mcg tab Take 1,000 mcg by mouth once daily. VITAMIN B COMPLEX-100 ORAL Take 1 tablet by mouth once daily. clopidogrel (PLAVIX) 75 mg tablet Take 75 mg by mouth once daily. SITagliptin-metFORMIN (JANUMET) 50-1,000 mg per tablet Take 0.5 tablets by mouth twice daily. UBIDECARENONE (COQ-10 ORAL) Take 400 mg by mouth once daily. pantoprazole DR (PROTONIX) 40 mg tablet Take 1 tablet by mouth once daily. 90 tablet 3 Lancets lancets Test blood sugar(s) 1 times daily. Dx: Type 2 DM - Controlled E11.9 Insulin: No 50 Each 11 No current facility-administered medications for this visit. RSV Vaccine(1 - 1-dose 60+ series) Never done Dilated Retinal Exam due on 08/17/2021 Covid-19 Vaccine( season) due on 02/09/2023 Advance Directive Discussion due on 03/12/2023 Behavioral Health Screening Never done HbA1C due on 06/23/2023 LDL Cholesterol due on 06/16/2023 Diabetic Foot Exam due on 07/05/2023 EXAM: BP 124/76 (BP Site: Left Arm, BP Position: Sitting, BP Cuff Size: Regular Adult) Pulse 70 Resp 18 Wt 71.3 kg (157 lb 3.2 oz) BMI 21.32 kg/m Pleasant thin elderly man in no acute distress. Alert and oriented all spheres. Normal affect and cognition. Speech is slow but normal. No deficits to learning or comprehension. Skin warm, dry, pink to lips and nailbeds. Normal turgor. Respirations regular and unlabored. HEENT: NCAT. No scleral icterus or conjunctival injection. TM's clear. Nose and oropharynx free from injection or lesion. Oral membranes moist and pink. No cervical lymph nodes. Thyroid non-tender, no masses, or enlargement. Carotids pulses 2+/4+ without bruits. No JVD with HOB at 30 degrees. Chest is normal shape. Lungs are clear to all roberts with good air exchange through out. HRRR without murmur or gallop. No lifts, heaves, or rubs. Extrem: no clubbing or cyanosis. Edema: none. Extremities are warm and pink with prompt capillary refill. Neurological: Higher Integrative Functions: Oriented to person, place and time. Memory: Good recent and remote Attention Span & Concentration: good. Affect and cognition: normal Language: Accurate naming of objects. Good comprehension. Fund of Knowledge: Good 2nd Cranial Nerve: Vision: intact to reading small print 3rd, 4th & 6th cranial nerves: PERLLA, EOMI without nystagmus. 5th cranial nerve: No decrease in facial sensation, normal corneal reflex, [place] 5 / 5 7th cranial nerve: Facial muscles symmetric and strong 8th cranial nerve: Hears finger rub well bilaterally 9th cranial nerve: Positive gag 10th cranial nerve: Spontaneous palate movement full and symmetric 11th cranial nerve: Full strength in shoulder shrug 12th cranial nerve: Tongue protrusion full and midline Sensation: No decrease in sensation in upper or lower limbs to touch DTR's: 2 / 4+ symmetric upper and lower Babinski reflexes: Down going Coordination: Rapid alternating movements are slow, a little hard initially on left but improved. Finger - nose coordination intact. Rhomberg: negative Gait with slight lag on forward swing. Able to walk heel to toe in tandem. and balance otherwise normal Motor is symmetric upper and lower 1-2/4+ ASSESSMENT/PLAN: 1. Coronary artery disease due to lipid rich plaque - ICD9: 414.00, 414.3, ICD10: I25.10, I25.83 (primary diagnosis) - COMPREHENSIVE METABOLIC PANEL - LIPID PANEL BASIC - HEMOGLOBIN A1C - COMPLETE BLOOD COUNT AND DIFFERENTIAL 2. Type 2 diabetes mellitus with stage 2 chronic kidney disease, without long- term current use of insulin (HCC) (HCC) - ICD9: 250.40, 585.2, ICD10: E11.22, N18.2 - Controlled - Continue current medications - eGFR: 69 Stable - Counseled on avoiding NSAIDs, adequate hydration - COMPREHENSIVE METABOLIC PANEL - LIPID PANEL BASIC - HEMOGLOBIN A1C - COMPLETE BLOOD COUNT AND DIFFERENTIAL 3. Dyslipidemia - ICD9: 272.4, ICD10: E78.5 - Controlled - Continue current medications - Counseled on healthy diet and regular exercise - COMPREHENSIVE METABOLIC PANEL - LIPID PANEL BASIC F/u in 4 weeks Brian Cook PA-C * Brian Cook PA-C - 06/25/2023 2:20 PM EDT 82 year old male here for follow up including hx CHF with reduced EF 30 to 35%, Extensive coronary artery disease status post JACOBSON to LAD 1997, PCI, CHANTE to circumflex 2002, CHANTE toin-stent lesion RCA 2010, ICD placement with generator replacement in 2017, moderate diffuse hypokinesis, chronic anticoagulation, buttermaker continuous churn antiarrhythmic therapy with sotalol, CLL currently managedby hematology on ibrutinib which has been stopped due to remission, chronic iron malabsorption withiron deficiency anemia, stage 3a renal, controlled type 2 DM, asking for follow-up from CVA which occurred while over wintering in [place] in December. 12/14/2022 Cardiology visit with Nathaniel Murillo CNP 01/01/[address] [place] [facility] from 02/27/2023 Extensive records from multiple sites. 06/15/2023 OT/ST Daughter thinks had a stroke prior to driving to [place]. Doing fine. Has essential tremor. Food flies at dinner sometimes, right hand is wors.e Cardiovascular interval hx: Current meds: Losartan 50mg daily Sotolol 80mg Rosuvastin 5mg daily HS Use of NTG: No Chest pain, arm, jaw pain, neck, or upper back pain suggestive of angina: No. SOB: No Dyspnea with exertion: No orthopnea: No Cough : No racing or irregular heartbeats: No palpitations: No syncopal sx: No Headache: No Unexplainable fatigue tired a lot Leg swelling: No Nausea: No diaphoresis: No Heartburn: No Claudication: No Smoking: No Following Low cholesterol, high fiber diet? somewhat If on statin: muscle aches? No If on statin: GI sx or diarrhea? No Additional history as above. Lab review: Latest Ref Rng 06/05/2022 06/15/2022 08/15/2022 09/05/2022 12/04/2022 12/22/2022 WBC 3.70 - 11.00 k/uL 8.57 7.94 6.44 7.42 6.70 RBC 4.20 - 6.00 m/uL 4.21 3.75 (L) 3.45 (L) 4.23 4.19 (L) Hemoglobin 13.0 - 17.0 g/dL 11.9 (L) 10.6 (L) 9.8 (L) 11.6 (L) 11.4 (L) Hematocrit 39.0 - 51.0 % 36.1 (L) 34.7 (L) 29.3 (L) 35.2 (L) 36.5 (L) MCV 80.0 - 100.0 fL 85.7 92.5 84.9 83.2 87.1 MCH 26.0 - 34.0 pg 28.3 28.3 28.4 27.4 27.2 MCHC 30.5 - 36.0 g/dL 33.0 30.5 33.4 33.0 31.2 RDW-CV 11.5 - 15.0 % 13.4 14.5 13.9 13.7 13.9 Platelet Count 150 - 400 k/uL 121 (L) 149 (L) 134 (L) 141 (L) 156 MPV 9.0 - 12.7 fL 12.5 12.5 11.4 11.1 12.0 Neut% % 60.7 61.4 61.9 63.0 64.4 Abs Neut (ANC) 1.45 - 7.50 k/uL 5.20 4.88 3.99 4.67 4.31 Lymph% % 28.1 27.7 27.0 27.6 26.1 Abs Lymph 1.00 - 4.00 k/uL 2.41 2.20 1.74 2.05 1.75 Lander% % 9.5 8.4 8.7 7.4 7.8 Abs Lander <0.87 k/uL 0.81 0.67 0.56 0.55 0.52 Eosin% % 1.3 1.8 1.9 1.6 1.2 Abs Eosin <0.46 k/uL 0.11 0.14 0.12 0.12 0.08 Baso% % 0.2 0.4 0.3 0.3 0.4 Abs Baso <0.11 k/uL <0.03 0.03 <0.03 <0.03 0.03 Immature Gran % % 0.2 0.3 0.2 0.1 0.1 IMMATURE GRANS (ABS) <0.10 k/uL <0.03 <0.03 <0.03 <0.03 <0.03 NRBC /100 WBC 0.0 0.0 0.0 0.0 0.0 Absolute nRBC <0.01 k/uL <0.01 <0.01 <0.01 <0.01 <0.01 DTYPE Auto Auto Auto Auto Auto Protein, Total 6.3 - 8.0 g/dL 6.8 6.2 (L) 6.8 Albumin 3.9 - 4.9 g/dL 3.8 (L) 3.4 (L) 3.9 Calcium 8.5 - 10.2 mg/dL 9.0 8.0 (L) 8.7 Bilirubin, Total 0.2 - 1.3 mg/dL 0.4 0.4 0.4 Alkaline Phosphatase 38 - 113 U/L 66 78 65 AST 14 - 40 U/L 11 (L) 14 10 (L) ALT 10 - 54 U/L 6 (L) 9 (L) 6 (L) Glucose 74 - 99 mg/dL 169 (H) 128 (H) 154 (H) BUN 9 - 24 mg/dL 20 17 18 Creatinine 0.73 - 1.22 mg/dL 1.26 (H) 1.09 1.06 Sodium 136 - 144 mmol/L 141 139 141 Potassium 3.7 - 5.1 mmol/L 3.6 (L) 3.3 (L) 3.8 Chloride 97 - 105 mmol/L 108 (H) 106 (H) 107 (H) CO2 22 - 30 mmol/L 24 24 23 Anion Gap 9 - 18 mmol/L 9 9 11 eGFR >=60 mL/min/1.73m 57 (L) 67 69 CHOLESTEROL, TOTAL 0 - 200 MG/DL 129 (E) Triglyceride 64 (E) HDL Cholesterol 40 - 59 MG/DL 47 (E) LDL Cholesterol 69 (E) Iron 41 - 186 ug/dL 57 42 82 TIBC 232 - 386 ug/dL 305 306 346 Transferrin Saturation 15.0 - 57.0 % 18.7 13.7 (L) 23.7 Retic % 0.4 - 2.0 % 1.4 Abs Retic 0.018 - 0.100 M/uL 0.060 LD 135 - 225 U/L 145 Ferritin 30.3 - 565.7 ng/mL 25.5 (L) 28.8 (L) 43.5 TSH 0.270 - 4.200 mIU/L 1.360 Last 3 Encounter BP Readings: Date: BP: 06/25/2023 124/76 05/25/2023 118/62 12/22/2022 136/70 Having trouble with right knee getting up and down from the couch. Right knee pain Right foot drags, rigjht handd Had fall when backfrom [place], fellin driveway. 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 Hyperlipidemia Impacted cerumen [place] (myocardial infarction) (HCC) ', ', '03, '04 Pneumonia 03/08/2011 PAST SURGICAL HISTORY Procedure Laterality Date ANGIOPLASTY 02/2004 with stents ARTHRP ACETBLR/PROX FEM PROSTC AGRFT/ALGRFT Right CABG (2) VEIN GRAFTS & ARTERIAL GRAFT(S 09/09/1997 COLONOSCOPY 07/26/2022 COLONOSCOPY SCREENING 08/09/2022 Dr Du CORONARY ARTERY DILATION 03/12/2010 3 stents EGD 07/26/2022 IMPLANTABLE CARDIOVERTER DEFIBRILLATOR 09/05/2010 duel chamber REMV CATARACT EXTRACAP,INSERT LENS Bilateral Social History Tobacco Use Smoking status: Never Smokeless tobacco: Never Vaping Use Vaping Use: Never used Substance Use Topics Alcohol use: No Drug use: No ACTIVE PROBLEM LIST Cll (Chronic Lymphocytic Leukemia) (Hcc) Chronic Atrial Fibrillation (Hcc) Gerd Without Esophagitis Mixed Hyperlipidemia Coronary Artery Disease Due to Lipid Rich Plaque Status Post Coronary Artery Stent Placement Type 2 Diabetes Mellitus With Chronic Kidney Disease, Without Long-Term Current Use of Insulin (Hcc) Iron Deficiency Anemia Due to Chronic Blood Loss Iron Malabsorption Pad (Peripheral Artery Disease) (Hcc) Stage 3 Chronic Kidney Disease (Hcc) Icd (Implantable Cardioverter-Defibrillator) in Place Ischemic Cardiomyopathy Platelets Decreased (Hcc) Acute Combined Systolic and Diastolic Heart Failure (Hcc) Primary Hypertension Gastrointestinal Hemorrhage Associated With Intestinal Diverticulosis Anemia Arthritis Congestive Heart Failure (Hcc) Dyslipidemia Hearing Loss High Thyroid Stimulating Hormone (Tsh) Level Hip Pain History of Chronic Lymphocytic Leukemia History of Repair of Hip Joint Scaler Packer (Current) Use of Anticoagulants Myocardial Infarction (Hcc) Osteoarthritis of Hip Paroxysmal Ventricular Tachycardia (Hcc) Pneumonia Recurrent Coronary Arteriosclerosis After Percutaneous Transluminal Coronary Angioplasty Sensorineural Hearing Loss ([facility]) of Both Ears Underweight Chronic Ischemic Left Anterior Cerebral Artery Stroke Impairment of Balance Impaired Flexibility of Lower Extremity Weakness Current Outpatient Medications Medication Sig Dispense Refill losartan (COZAAR) 50 mg tablet Take 50 mg by mouth once daily. ferrous sulfate 325 mg (65 mg iron) tablet Take 325 mg by mouth every other day. rosuvastatin (CRESTOR) 5 mg tablet Take 5 mg by mouth once daily. pantoprazole DR (PROTONIX) 40 mg tablet Take 1 tablet by mouth once daily. 90 tablet 3 OTC PRODUCT 1,000 mg twice daily. Tumeric complex Lancets lancets Test blood sugar(s) 1 times daily. Dx: Type 2 DM - Controlled E11.9 Insulin: No 50 Each 11 blood sugar diagnostic (BLOOD GLUCOSE TEST) test strip Test blood sugar(s) 1 times daily. Dx: Type 2 DM - Controlled E11.9 Insulin: No 50 Strip 11 sotalol (BETAPACE) 80 mg tablet Take 1 1/2 tablets by mouth twice daily. apixaban (ELIQUIS) 5 mg tab(s) Take 5 mg by mouth twice daily. cyanocobalamin (VITAMIN B-12) 1,000 mcg tab Take 1,000 mcg by mouth once daily. VITAMIN B COMPLEX-100 ORAL Take 1 tablet by mouth once daily. clopidogrel (PLAVIX) 75 mg tablet Take 75 mg by mouth once daily. SITagliptin-metFORMIN (JANUMET) 50-1,000 mg per tablet Take 0.5 tablets by mouth twice daily. UBIDECARENONE (COQ-10 ORAL) Take 400 mg by mouth once daily. No current facility-administered medications for this visit. RSV Vaccine(1 - 1-dose 60+ series) Never done Dilated Retinal Exam due on 08/17/2021 Covid-19 Vaccine(2022- season) due on 02/09/2023 Advance Directive Discussion due on 03/12/2023 Behavioral Health Screening Never done HbA1C due on 06/23/2023 LDL Cholesterol due on 06/16/2023 Diabetic Foot Exam due on 07/05/2023 EXAM: BP 124/76 (BP Site: Left Arm, BP Position: Sitting, BP Cuff Size: Regular Adult) Pulse 70 Resp 18 Wt 71.3 kg (157 lb 3.2 oz) BMI 21.32 kg/m Pleasant thin adult man in no acute distress. Alert and oriented all spheres. Normal affect and cognition. Speech slow, normal content. No deficits to learning or comprehension. Skin warm, dry, pink to lips and nailbeds. Normal turgor. Respirations regular and unlabored. Chest is normal shape. Lungs are clear to all roberts with good air exchange through out. HRRR without murmur or gallop. No lifts, heaves, or rubs. Extrem: no clubbing or cyanosis. Edema: none. Extremities are warm and pink with prompt capillary refill. Extrem: no clubbing, cyanosis, edema. Distal pulses 2+/4, prompt capillary refill. ASSESSMENT/PLAN: 1. Coronary artery disease due to lipid rich plaque - ICD9: 414.00, 414.3, ICD10: I25.10, I25.83 (primary diagnosis) Stable, no ischemic or decomensation noted, follows with cardiology - COMPREHENSIVE METABOLIC PANEL - LIPID PANEL BASIC - HEMOGLOBIN A1C - COMPLETE BLOOD COUNT AND DIFFERENTIAL 2. Type 2 diabetes mellitus with stage 2 chronic kidney disease, without long- term current use of insulin (HCC) (HCC) - ICD9: 250.40, 585.2, ICD10: E11.22, N18.2 - Controlled - Continue current medications - eGFR: 69 Stable - Counseled on avoiding NSAIDs, adequate hydration - COMPREHENSIVE METABOLIC PANEL - LIPID PANEL BASIC - HEMOGLOBIN A1C - COMPLETE BLOOD COUNT AND DIFFERENTIAL 3. Dyslipidemia - ICD9: 272.4, ICD10: E78.5 - Controlled - Continue current medications - Counseled on healthy diet and regular exercise - COMPREHENSIVE METABOLIC PANEL - LIPID PANEL BASIC Some of this note may have been copied and pasted for the purpose of history context and comparisonand has been adjusted for changes in prior data. Brian Cook PA-C documented in this encounterOur [facility] Of [facility]04-24-[facility]24 History of Present illness Narrative* Lowell Rodríguez, AQUATICS DIRECTOR - 07/04/2023 2:10 PM EDT Episode Visit Count: 3 Therapist That Will Accept/Oversee The Plan Of Care: Marce Mann, PT, DPT Start of Care Date: 06/15/23 Onset Date: 12/14/22 Plan of Care Certification Date: 06/15/23 Next Certification Due Date: 07/27/23 Patient Identified by Name and Date of : Yes REHABILITATION AND SPORTS THERAPY PHYSICAL THERAPY TREATMENT NOTE ASSESSMENT: Ronnie Lee tolerated the session with no issues. He demonstrated difficulty with picking up knees for lateral cone step overs, and improvements in all other aspects including extensive walking with head turns and look up/down. The patient will continue to benefit from ongoing skilled physical therapy to progress toward set goals. PLAN FOR NEXT VISIT: Consider multiple cones F/B and lateral, walking around objects, walking with head turns, tandem walk with sticks. Balance and strengthening. Consider Scifit recumbant, incline gastroc stretch, airexbalance, heel raise on step, Bridge with band above knees, hip hinge, standing cobra, step up, lateral walk, single leg stance, etc SUBJECTIVE: No issues after last time. I walk on a treadmill 20 min per evening. I think at 2.0 MPH . Pain: Pain Pain Level: 0 Post Treatment Pain Post Treatment Pain Level: 0 OBJECTIVE MEASURES WITH LEVEL OF FUNCTION: TREATMENT: Therapeutic Exercise: 1: NuStep seat 13, level 1, 4 min with UEs 2: Gastroc wedge stretch at 2x 30 seconds 3: 6 step up with opp UE upward punch, on erail, 10x each side 4: Airex SLS 8 x 5 sec finger tips alternating. 5: Airex NBOS with head turns 30 sec, and look up/down 30 sec 6: Multiple cone stepovers forward and lateral 2x each way 7: highstepping with pause for balance 2 x 12 ft 8: heel to toe walk at rail 9: side lying clamshells 15xand abuction 10x of ea for ea side 10: wall cobra with folded pillow behind back for a thoracic stretch 5 x 10 sec 11: Walking with head turns and look up /down. 5 x 50ft of each. 12: hip hinge chair squat 10x Skilled Intervention: Patient was educated in proper exercise technique and purpose for exercises. Reviewed and educated patient on additions/changes for home exercise program as above (*). Skilled judgment was used in selection of appropriate interventions. Correct performance of therapeutic exercises was facilitated with verbal and visual cuing. Educated patient on rationale for performing exercises in regards to decreasing fatigue , improvingfitness, including balance, and ROM and function . Manual Therapy: 1: side lying hip flexor stretch 3 x 30 sec each Skilled Intervention: Manual skills to improve joint mobility, ROM, and decrease pain. Utilized anatomy knowledge of the therapist, and assessment of patient's response to intervention. Billing Therapeutic Exercise Treatment Minutes: 39 Manual TherapyTreatment Minutes: 6 Skilled Treatment Time Minutes (timed and untimed codes): 45 Total Session Time (minutes): 45 Session Start Time : 1400 Session Stop Time : 1445 Lowell Rodríguez PTA documented in this encounterOur Lady Of Mercy [facility]04-22-2024 History of Present illness Narrative* Lowell Rodríguez AQUATICS DIRECTOR - 07/02/2023 2:50 PM EDT Episode Visit Count: 2 Therapist That Will Accept/Oversee The Plan Of Care: Marce Mann PT, DPT Start of Care Date: 06/15/23 Onset Date: 12/14/22 Plan of Care Certification Date: 06/15/23 Next Certification Due Date: 07/27/23 Patient Identified by Name and Date of : Yes REHABILITATION AND SPORTS THERAPY PHYSICAL THERAPY TREATMENT NOTE ASSESSMENT: Ronnie Lee tolerated the session with no issues. He demonstrated difficulty with lack of pausing during high stepping but better with cuing, and improvements in start and progressions of balance activities. He did really well. The patient will continue to benefit from ongoing skilled physical therapy to progress toward set goals. PLAN FOR NEXT VISIT: Consider multiple cones F/B and lateral, walking around objects, walking with head turns, tandem walk with sticks. Balance and strengthening. Consider Scifit recumbant, incline gastroc stretch, airexbalance, heel raise on step, Bridge with band above knees, hip hinge, standing cobra, step up, lateral walk, single leg stance, etc SUBJECTIVE: I did ok after the eval. No falls since I can remember. No pain. . Pain: Pain Pain Level: 0 OBJECTIVE MEASURES WITH LEVEL OF FUNCTION: TREATMENT: Therapeutic Exercise: 1: Review of HEP 2: Gastroc wedge stretch at 2x 30 seconds 3: Airex weight shift F/B and sisd to side 15x ea 4: Airex SLS 7 x 5 sec finger tips alternating. 5: Airex NBOS with head turns 30 sec, and look up/down 30 sec 6: sidesstepping at rail 2 x [address] 7: highstepping with pause for balance 2 x 12 ft 8: heel to toe walk at rail 9: side lying clamshells and abuction 10x of ea for ea side 10: wall cobra 5 x 5 sec 11: Wall thoracic stretch w pillow folded behind back and cobra position 3 x 10 sec 12: hip hinge chair squat 10x Skilled Intervention: Patient was educated in proper exercise technique and purpose for exercises. Reviewed and educated patient on additions/changes for home exercise program as above (*). Skilled judgment was used in selection of appropriate interventions. Correct performance of therapeutic exercises was facilitated with verbal and visual cuing. Educated patient on rationale for performing exercises in regards to decreasing fatigue , improvingfitness, including balance, and ROM and function . Manual Therapy: 1: side lying hip flexor stretch 4 x 20 sec each Skilled Intervention: Manual skills to improve joint mobility, ROM, and decrease pain. Utilized anatomy knowledge of the therapist, and assessment of patient's response to intervention. Billing Therapeutic Exercise Treatment Minutes: 39 Manual TherapyTreatment Minutes: 6 Skilled Treatment Time Minutes (timed and untimed codes): 45 Total Session Time (minutes): 45 Session Start Time : 1400 Session Stop Time : 1445 Lowell Rodríguez PTA documented in this encounterOur Lady Of Mercy [facility]04-05-2024 History of Present illness Narrative* Marce Mann PT DPT - 06/15/2023 2:09 PM EDT Program_ID:[id number] Access Code: [email or web address] URL: [email or web address] Date: 06-15-2023 Prepared By: Marce Mann Program Notes Exercises - Gastroc Stretch on Wall - 1 x daily - 7 x weekly - 1 sets - 2 reps - Standing Romberg to 3/4 Tandem Stance - 1 x daily - 7 x weekly - 1 sets - 2 reps - Single Leg Heel Raise with Counter Support - 1 x daily - 7 x weekly - 1 sets - 5 reps - Heel Toe Raises with Counter Support - 1 x daily - 7 x weekly - 2 sets - 10 reps * Marce Mann PT DPT - 06/15/2023 1:31 PM EDT Episode Visit Count: 1 Therapist That Will Accept/Oversee The Plan Of Care: Marce Mann PT DPKaran Start of Care Date: 06/15/23 Onset Date: 12/14/22 Plan of Care Certification Date: 06/15/23 Next Certification Due Date: 07/27/23 Patient Identified by Name and Date of : Yes REHABILITATION AND SPORTS THERAPY PHYSICAL THERAPY EVALUATION PLAN OF CARE: Assessment: Ronnie Lee presents with chief complaint of difficulty with balance that interferes with (ADLs) . He presents with impairments in ADL's, balance, and gait. Patient did not complete the PROMIS (Patient Reported Outcome Measures Information System). Prognosis for therapy is Good dueto: current objective clinical presentation, good overall health status, Prognosis may be limited due to advanced age . The patient demonstrates difficulty with gait when his head it turning and changing speeds. He lacks hip extension past neutral and has difficulty with heel strike. He has decrease flexibility in bilateral gastrocnemius which may cause difficulty with heel strike with ambulation. He will benefit from skilled therapy services to meet the goals established for this plan of care as noted below. Assessment Fall Risk : Active low risk Goals for Episode of Care: created on 06/15/23 through 07/27/23 Patient will demonstrate increase in bilateral hip extension, right hip external rotation, and bilateral ankle dorsiflexion strength to 4+/5 during manual muscle testing in order to improve function for prior functional tasks. Patient will report no falls. Improve score on Timed Up and Go Test to 9.06 seconds to reflect decreased fall risk. Improve score on Dynamic Gait index to to reflect decreased fall risk. [place] in home exercise program including cardiovascular exercise. Patient will improve his/her AM-PAC T-scale score by 4 points to indicate a Minimal Clincial Important Difference. Patient Goals: Decrease falls and be like he used to be Planned Interventions, Frequency, and Duration: Current Frequency: 2x/week Duration: 6 weeks Total Number of Visits Planned: 12 Planned Treatment Interventions: Therapeutic exercise (71705), Neuromuscular re- education (13746), Manual therapy (43953), Therapeutic activities (29215), Self- alf management (56772), Gait Training (00762), Body Mechanics Training PLAN FOR NEXT VISIT: Balance and strengthening. Consider Scifit recumbant, incline gastroc stretch,airex balance, heel raise on step, Bridge with band above knees, hip hinge, standing cobra, step up, lateral walk, single leg stance, etc Patient demonstrates good understanding of plan of care and treatment. The above goals and plan of care were discussed and agreed upon by patient/family. SUBJECTIVE: The patient had a stroke 6 months ago. He was in PT for 2 months. He was released from neurologist,but wanted him to get physical therapy. Patient Goals: Decrease falls and be like he used to be Functional Limitations: (ADLs) Prior Level of Function: Independent without limitations Relevant History Past Relevant Medical Conditions: Hypertension, Diabetes (CVA) Past Relevant Surgical Conditions: Total Hip Replacement-Left Employment: Retired Recreation / Current Exercise: Walk on treadmill 10 minutes x 2 Hobbies / Interests: Woodworking; model trains Home Environment Patient Lives With: Spouse Home Type: Multi-Level with First Floor Set-Up Entry To Home: Stairs, With Rail Number Of Stairs Into Home: 2 Laundry: Basement; does it Intake Information: Prescription present Previous Treatment: Physical Therapy Falls Interview: Two or more falls in the last year Falls History # of falls in past year: 4 # of falls resulting in an injury in past year: 0 Pain: Pain Pain Level: 0 PROMIS Scales T-scores: mean of general population = 50. 5 points is clinically meaningfully difference Percentiles provide an indication of how the patient's score ranks in relation to the general population. Higher percentile rankings indicate better function/quality of life. 50th percentile is the average of the general population and indicates half of respondents had a worse score. OBJECTIVE MEASURES WITH LEVEL OF FUNCTION: Posture / Alignment Posture: Forward head, Rounded shoulders, Increased thoracic kyphosis Sitting Posture: Fair LE Flexibility Flexibility: Hamstring Flexibility, Gastrocnemius Flexibility R Hamstring Flexibility: -25 L Hamstring Flexibility: -28 R Gastrocnemius Flexibility: 2 L Gastrocnemius Flexibility: 0 UE and Cervical Strength R UE Strength: 4 to 4+/5 L UE Strength: 4 to 4+/5 LE Strength R Hip Extension: 3+/5 R Hip Flexion (L2): 4+/5 R Hip ABduction: 4+/5 R Hip ADduction: 4+/5 R Hip Internal Rotation: 4+/5 R Hip External Rotation: 4-/5 R Knee Extension (L3): 4+/5 R Knee Flexion: 4+/5 R Ankle Dorsiflexion (L4): 4-/5 R Ankle Plantarflexion Functional Strength (S1): 4 L Hip Extension: 3+/5 L Hip Flexion (L2): 4+/5 L Hip ABduction: 4+/5 L Hip ADduction: 4+/5 L Hip Internal Rotation: 4+/5 L Hip External Rotation: 4+/5 L Knee Extension (L3): 4+/5 L Knee Flexion: 4+/5 L Ankle Dorsiflexion (L4): 4-/5 L Ankle Plantarflexion Functional Strength (S1): 4 Gait Gait: Independent Gait Device: None Gait Deviations: General Deviations, Left Lower Extremity, Right Lower Extremity Gait Deviations Right Lower Extremity: Heel strike during initial stance decreased, Lacks hip extension beyond mid-stance Gait Deviations Left Lower Extremity: Heel strike during initial stance decreased, Lacks hip extension beyond mid-stance General Deviations/Observations: Michelle decreased Functional Performance Test Results 5 Times Sit to Stand Test : 14.8 sec Timed Up and Go (sec): 11.06 sec 4 Stage Balance Test Narrow base of support (sec): 30 sec Semi-tandem base of support (sec): 30 sec Tandem base of support (sec): 5 sec Single leg stance - right (sec): 5 sec Single leg stance - left (sec): 2 sec Dynamic Gait Index Gait level surface : 3 - Normal- walks 20' no assist device, good speed, no imbalance, normal gait pattern Change in gait speed: 2 - Mild impairment- is able to change speed but demonstrates mild gait deviations or no gait deviations but unable to achieve a significant change in velocity, or uses an assistive device Gait and horizontal head turns: 2 - Mild impairment- performs R/L head turns smoothly with slight change in gait velocity, minor disruption to smooth gait path or uses assistive device Gait and vertical head turns: 3 - Normal- performs up/down head turns smoothly with no change in gait Gait and pivot: 3 - Normal- pivot turn safely within 3 sec, stops quickly, no loss of balance Step over obstacle: 3 - Normal- is able to step over box without changing speed, no evidence of imbalance Step around obstacle: 3 - Normal- able to walk around cones safely without changing gait speed, no evidence of imbalance Steps: 2 - Mild impairment- alternating feet, must use rail Dynamic Gait Index Total: 21 CTSIB Eyes open, firm surface Trial 1 (sec): 30 Eyes closed, firm surface Trial 1 (sec): 30 Eyes open, foam surface Trial 1 (sec): 30 Eyes closed, foam surface Trial 1 (sec): 30 Education: TREATMENT: PT Treatment Interventions: Therapeutic Exercise Evaluation Therapeutic Exercise: 1: * 3/4 modified tandem x 30 seconds 2: * Gastroc stretch at wall x 30 seconds 3: * Wall DF x 10 4: * Single leg calf raise x 5 Skilled Intervention: Reviewed and educated patient on additions/changes for home exercise program as above (*). Skilled judgment was used in selection of appropriate interventions. Provided written instruction for home exercise program to facilitate proper performance and compliance. Correct performance of therapeutic exercises was facilitated with verbal and visual cuing. Billing * Evaluation Moderate Complexity: 1 Unit Therapeutic Exercise Treatment Minutes: 10 Skilled Treatment Time Minutes (timed and untimed codes): 43 Total Session Time (minutes): 43 Session Start Time : 1330 Session Stop Time : 1413 Marce Mann, PT, DPT documented in this encounterOur [facility]03-15-[facility] History of Present illness Narrative* Brian Cook PA-C - 05/25/2023 3:20 PM EDT 82 year old male new to me with extensive cardiovascular hx including hx CHF with reduced EF 30 to 35%, Extensive coronary artery disease status post JACOBSON to LAD 1997, PCI, CHANTE to circumflex 2002, CHANTE toin-stent lesion RCA 2010, ICD placement with generator replacement in 2017, moderate diffuse hypokinesis, chronic anticoagulation, buttermaker continuous churn antiarrhythmic therapy with sotalol, CLL currently managedby hematology on ibrutinib which has been stopped due to remission, chronic iron malabsorption withiron deficiency anemia, stage 3a renal, controlled type 2 DM, asking for follow-up from CVA which occurred while over wintering in [place] in December. 12/14/2022 Cardiology visit with Nathaniel Murillo CNP 01/01/[address] Juan J Wiggins, [place] Also [facility] with [facility] lab from 02/27/2023 Extensive records from multiple sites. Daughter thinks had a stroke prior to driving to [place]. Had episode with imbalance, unable to talk properly, almost felt to right side, no LOC Since then has had some word difficulty and gait change with trouble picking up right foot. He doesn't recall and specific headache, pain, sudden loss of balance. Does note he has a little trouble lifting right leg. Was seen in hospital in [place]. Notes from [place] PCP indicate he had a stroke in December. 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 Hyperlipidemia Impacted cerumen [place] (myocardial infarction) ([facility]) , , 03, 04 Pneumonia 03/08/2011 PAST SURGICAL HISTORY Procedure Laterality Date ANGIOPLASTY 02/2004 with stents ARTHRP ACETBLR/PROX FEM PROSTC AGRFT/ALGRFT Right CABG (2) VEIN GRAFTS & ARTERIAL GRAFT(S 09/09/1997 COLONOSCOPY 07/26/2022 COLONOSCOPY SCREENING 08/09/2022 Dr Du CORONARY ARTERY DILATION 03/12/2010 3 stents EGD 07/26/2022 IMPLANTABLE CARDIOVERTER DEFIBRILLATOR 09/05/2010 duel chamber REMV CATARACT EXTRACAP,INSERT LENS Bilateral Social History Tobacco Use Smoking status: Never Smokeless tobacco: Never Vaping Use Vaping Use: Never used Substance Use Topics Alcohol use: No Drug use: No ACTIVE PROBLEM LIST Cll (Chronic Lymphocytic Leukemia) (Hcc) Chronic Atrial Fibrillation (Hcc) Gerd Without Esophagitis Mixed Hyperlipidemia Coronary Artery Disease Due to Lipid Rich Plaque Status Post Coronary Artery Stent Placement Type 2 Diabetes Mellitus With Chronic Kidney Disease, Without Long-Term Current Use of Insulin (Hcc) Iron Deficiency Anemia Due to Chronic Blood Loss Iron Malabsorption Pad (Peripheral Artery Disease) (Hcc) Stage 3 Chronic Kidney Disease (Hcc) Icd (Implantable Cardioverter-Defibrillator) in Place Ischemic Cardiomyopathy Platelets Decreased (Hcc) Acute Combined Systolic and Diastolic Heart Failure (Hcc) Primary Hypertension Gastrointestinal Hemorrhage Associated With Intestinal Diverticulosis Anemia Arthritis Congestive Heart Failure (Hcc) Dyslipidemia Hearing Loss High Thyroid Stimulating Hormone (Tsh) Level Hip Pain History of Chronic Lymphocytic Leukemia History of Repair of Hip Joint Intermediate (Current) Use of Anticoagulants Myocardial Infarction (Hcc) Osteoarthritis of Hip Paroxysmal Ventricular Tachycardia (Hcc) Pneumonia Recurrent Coronary Arteriosclerosis After Percutaneous Transluminal Coronary Angioplasty Sensorineural Hearing Loss (Snhl) of Both Ears Underweight Current Outpatient Medications Medication Sig Dispense Refill losartan (COZAAR) 50 mg tablet Take 50 mg by mouth once daily. ferrous sulfate 325 mg (65 mg iron) tablet Take 325 mg by mouth every other day. rosuvastatin (CRESTOR) 5 mg tablet Take 5 mg by mouth once daily. pantoprazole DR (PROTONIX) 40 mg tablet Take 1 tablet by mouth once daily. 90 tablet 3 OTC PRODUCT 1,000 mg twice daily. Tumeric complex Lancets lancets Test blood sugar(s) 1 times daily. Dx: Type 2 DM - Controlled E11.9 Insulin: No 50 Each 11 blood sugar diagnostic (BLOOD GLUCOSE TEST) test strip Test blood sugar(s) 1 times daily. Dx: Type 2 DM - Controlled E11.9 Insulin: No 50 Strip 11 sotalol (BETAPACE) 80 mg tablet Take 1 1/2 tablets by mouth twice daily. apixaban (ELIQUIS) 5 mg tab(s) Take 5 mg by mouth twice daily. cyanocobalamin (VITAMIN B-12) 1,000 mcg tab Take 1,000 mcg by mouth once daily. VITAMIN B COMPLEX-100 ORAL Take 1 tablet by mouth once daily. clopidogrel (PLAVIX) 75 mg tablet Take 75 mg by mouth once daily. SITagliptin-metFORMIN (JANUMET) 50-1,000 mg per tablet Take 0.5 tablets by mouth twice daily. UBIDECARENONE (COQ-10 ORAL) Take 400 mg by mouth once daily. No current facility-administered medications for this visit. RSV Vaccine(1 - 1-dose 60+ series) Never done Dilated Retinal Exam due on 08/17/2021 Covid-19 Vaccine(2022- season) due on 02/09/2023 Advance Directive Discussion due on 03/12/2023 Depression Assessment due on 03/12/2023 LDL Cholesterol due on 06/16/2023 EXAM: BP 118/62 Pulse 81 Wt 72.1 kg (159 lb) SpO2 99% BMI 21.56 kg/m Pleasant older man in no acute distress. Alert and oriented all spheres. Normal affect and cognition. Speech normal. No deficits to learning or comprehension. Skin warm, dry, pink to lips and nailbeds. Normal turgor. Respirations regular and unlabored. HEENT: NCAT. No scleral icterus or conjunctival injection. TM's clear. Nose and oropharynx free from injection or lesion. Oral membranes moist and pink. No cervical lymph nodes. Thyroid non-tender, no masses, or enlargement. Carotids pulses 2+/4+ without bruits. No JVD with HOB at 30 degrees. Chest is normal shape. Lungs are clear to all roberts with good air exchange through out. HRRR without murmur or gallop. No lifts, heaves, or rubs. Extrem: no clubbing or cyanosis. Edema: none. Extremities are warm and pink with prompt capillary refill. Neurological: Higher Integrative Functions: Oriented to person, place and time. Memory: Good recent and remote Attention Span & Concentration: good. Affect and cognition: normal Language: Accurate naming of objects. Good comprehension. Fund of Knowledge: Good 2nd Cranial Nerve: Vision: intact to printed word with glasses 3rd, 4th & 6th cranial nerves: PERLLA, EOMI without nystagmus. 5th cranial nerve: No decrease in facial sensation, normal corneal reflex, [place] 5 / 5 7th cranial nerve: Facial muscles symmetric and strong 8th cranial nerve: Hears finger rub well bilaterally 9th cranial nerve: Positive gag 10th cranial nerve: Spontaneous palate movement full and symmetric 11th cranial nerve: Full strength in shoulder shrug 12th cranial nerve: Tongue protrusion full and midline Sensation: No decrease in sensation in upper or lower limbs to touch DTR's: 2 / 4+ symmetric upper and lower Babinski reflexes: Down going Coordination: Rapid alternating movements required restating and demonstrating twice with hand flips, normal heel to tejeda bilaterally. Finger - nose coordination intact. Rhomberg: negative Slight lag in right leg swing, otherwise gait and balance otherwise normal ASSESSMENT/PLAN: 1. 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 Brian Cook PA-C documented in this encounterOur [facility] Of [facility]01-27-2024 Evaluation + Plan note Future Scheduled Tests Laboratory* Albumin/Creatinine Ratio, Random Urine 04/07/23 [facility] 10-13-2023 Miscellaneous Notes* Telephone Encounter - Beulah Urias LPN - 12/22/2022 3:23 PM EDT Information faxed as directed. Beulah Urias LPN * Telephone Encounter - Judith Piedra - 12/22/2022 3:04 PM EDT Received call from [facility] stating they received a fax of records/lab results. She states the records should be sent to patient's primary care- Dr. Peraza in [place]. . I called and fax # is [phone]. Please put Attn: Dr. Peraza. documented in this encounterOur Lady Of Mercy Hospital10-13-2023 History of Past illness Narrative* Problem Noted Date Diagnosed Date Resolved Date Encounter for immunization 12/22/2022 12/22/2022 1 Poisoning by vitamin D 12/22/2022 12/22/202212/22 Vitamin D deficiency 12/22/2022 12/22/2022 023 Lymphocytosis (symptomatic) 04/18/2011 09/25/2016 documented as of this encounter (statuses as of 12/22/2022) [facility] History of Past illness Narrative* Problem Noted Date Diagnosed Date Resolved Date Encounter for immunization 12/22/2022 12/22/2022 1 Poisoning by vitamin D 12/22/2022 12/22/202212/22 Vitamin D deficiency 12/22/2022 12/22/2022 023 Lymphocytosis (symptomatic) 04/18/2011 09/25/2016 documented as of this encounter (statuses as of 12/22/2022) [facility] History of Past illness Narrative* Problem Noted Date Diagnosed Date Resolved Date Encounter for immunization 12/22/2022 12/22/2022 1 Poisoning by vitamin D 12/22/2022 12/22/202212/22 Vitamin D deficiency 12/22/2022 12/22/2022 023 Lymphocytosis (symptomatic) 04/18/2011 09/25/2016 documented as of this encounter (statuses as of 06/18/2023) [facility] History of Past illness Narrative* Problem Noted Date Diagnosed Date Resolved Date Encounter for immunization 12/22/2022 12/22/2022 1 Poisoning by vitamin D 12/22/2022 12/22/202212/22 Vitamin D deficiency 12/22/2022 12/22/2022 023 Lymphocytosis (symptomatic) 04/18/2011 09/25/2016 documented as of this encounter (statuses as of 06/28/2023) [facility] History of Present illness Narrative* Zachary Kennedy MD - 12/22/2022 1:29 PM EDT Patient presents with: 6 Month Exam HPI: Patient presents today for office visit for follow up. Followed by Cardiology. Last OV with [facility] 12/14/22. No chest pain or shortness of breath. No edema. Still seeing Dr. Lloyd. No longer taking Inbruvica. In remission. No longer wearing compression stockings. Still with some swelling right leg is not new. No redness or warmth. DM: Checks sugars occ. Not every day Last A1c 5.8 No vision changes. Sees Ophthalmology yearly. Endo has not checked his sugar. Lipids are stable. Just had microalbumin done at [place] and labs. Blood counts improving. No further bleeding issues. Component Latest Ref Rng & Units 12/04/2022 WBC 3.70 - 11.00 k/uL 7.42 RBC 4.20 - 6.00 m/uL 4.23 Hemoglobin 13.0 - 17.0 g/dL 11.6 (L) Hematocrit 39.0 - 51.0 % 35.2 (L) MCV 80.0 - 100.0 fL 83.2 MCH 26.0 - 34.0 pg 27.4 MCHC 30.5 - 36.0 g/dL 33.0 RDW-CV 11.5 - 15.0 % 13.7 Platelet Count 150 - 400 k/uL 141 (L) MPV 9.0 - 12.7 fL 11.1 Neut% % 63.0 Abs Neut (ANC) 1.45 - 7.50 k/uL 4.67 Lymph% % 27.6 Abs Lymph 1.00 - 4.00 k/uL 2.05 Lander% % 7.4 Abs Lander <0.87 k/uL 0.55 Eosin% % 1.6 Abs Eosin <0.46 k/uL 0.12 Baso% % 0.3 Abs Baso <0.11 k/uL <0.03 Immature Gran % % 0.1 IMMATURE GRANS (ABS) <0.10 k/uL <0.03 NRBC /100 WBC 0.0 Absolute nRBC <0.01 k/uL <0.01 DTYPE Auto Protein, Total 6.3 - 8.0 g/dL 6.8 Albumin 3.9 - 4.9 g/dL 3.9 Calcium 8.5 - 10.2 mg/dL 8.7 Bilirubin, Total 0.2 - 1.3 mg/dL 0.4 Alkaline Phosphatase 38 - 113 U/L 65 AST 14 - 40 U/L 10 (L) ALT 10 - 54 U/L 6 (L) Glucose 74 - 99 mg/dL 154 (H) BUN 9 - 24 mg/dL 18 Creatinine 0.73 - 1.22 mg/dL 1.06 Sodium 136 - 144 mmol/L 141 Potassium 3.7 - 5.1 mmol/L 3.8 Chloride 97 - 105 mmol/L 107 (H) CO2 22 - 30 mmol/L 23 Anion Gap 9 - 18 mmol/L 11 eGFR >=60 mL/min/1.73m 69 Iron 41 - 186 ug/dL 82 TIBC 232 - 386 ug/dL 346 Transferrin Saturation 15.0 - 57.0 % 23.7 Ferritin 30.3 - 565.7 ng/mL 43.5 MEDICATIONS: Current Outpatient Medications Medication Sig apixaban (ELIQUIS) 5 mg tab(s) Take 5 mg by mouth twice daily. blood sugar diagnostic (BLOOD GLUCOSE TEST) test strip Test blood sugar(s) 1 times daily. Dx: Type 2 DM - Controlled E11.9 Insulin: No clopidogrel (PLAVIX) 75 mg tablet Take 75 mg by mouth once daily. cyanocobalamin (VITAMIN B-12) 1,000 mcg tab Take 1,000 mcg by mouth once daily. ferrous sulfate 325 mg (65 mg iron) tablet Take 325 mg by mouth every other day. Lancets lancets Test blood sugar(s) 1 times daily. Dx: Type 2 DM - Controlled E11.9 Insulin: No losartan (COZAAR) 50 mg tablet Take 50 mg by mouth once daily. OTC PRODUCT 1,000 mg twice daily. Tumeric complex pantoprazole DR (PROTONIX) 40 mg tablet Take 1 tablet by mouth once daily. rosuvastatin (CRESTOR) 5 mg tablet Take 5 mg by mouth once daily. SITagliptin-metFORMIN (JANUMET) 50-1,000 mg per tablet Take 0.5 tablets by mouth twice daily. sotalol (BETAPACE) 80 mg tablet Take 1 1/2 tablets by mouth twice daily. UBIDECARENONE (COQ-10 ORAL) Take 400 mg by mouth once daily. VITAMIN B COMPLEX-100 ORAL Take 1 tablet by mouth once daily. No current facility-administered medications for this visit. ALLERGIES: ALLERGIES Allergen Reactions Artificial Sweetene* Other: See Comments headache Avandamet [Rosiglit* Other: See Comments refuses Iodine Anaphylaxis Oxycodone GI Upset, Vomiting Dizziness Promethazine-Codeine Other: See Comments Low BP 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 Hyperlipidemia Impacted cerumen [place] (myocardial infarction) ([facility]) '93, '98, '03, '04 Pneumonia 03/08/2011 PAST SURGICAL HISTORY Procedure Laterality Date ANGIOPLASTY 02/2004 with stents ARTHRP ACETBLR/PROX FEM PROSTC AGRFT/ALGRFT Right CABG (2) VEIN GRAFTS & ARTERIAL GRAFT(S 09/09/1997 COLONOSCOPY 07/26/2022 COLONOSCOPY SCREENING 08/09/2022 Dr Du CORONARY ARTERY DILATION 03/12/2010 3 stents EGD 07/26/2022 IMPLANTABLE CARDIOVERTER DEFIBRILLATOR 09/05/2010 duel chamber REMV CATARACT EXTRACAP,INSERT LENS Bilateral FAMILY HISTORY Problem Relation Age of Onset Heart Father Cancer Mother Diabetes Sister Diabetes Other Diabetes Other Diabetes Daughter prediabetic Social History Tobacco Use Smoking status: Never Smokeless tobacco: Never Vaping Use Vaping Use: Never used Substance Use Topics Alcohol use: No Drug use: No Reviewed current medications, allergies, past medical history, surgical history, family history andsocial history today. REVIEW OF SYSTEMS All other reviewed and negative other than HPI. HEALTH MAINTENANCE: Reviewed health maintenance issues today and recommended the following in detail. Hepatitis B Vaccine(1 of 3 - Risk 3-dose series) Never done Dilated Retinal Exam- done in last few months. HbA1C due on 12/15/2022 VITALS: BP 136/70 Pulse 62 Ht 182.9 cm (6') Wt 73.7 kg (162 lb 6.4 oz) SpO2 98% BMI 22.03 kg/m Last 4 Encounter Wt Readings: Date: Wt: 12/22/2022 73.7 kg (162 lb 6.4 oz) 12/11/2022 75.8 kg (167 lb) 08/15/2022 76.7 kg (169 lb) 08/04/2022 76.7 kg (169 lb 3.2 oz) PHYSICAL EXAMINATION: General appearance: Well appearing, alert, in no acute distress, well-hydrated, well nourished. Skin: Skin color, texture, turgor normal, no suspicious rashes or lesions Head: Normocephalic, no masses, lesions, tenderness or abnormalities Lungs: Lungs clear to auscultation. No wheezing, rhonchi, rales Heart: RRR without murmur, gallop, or rubs. No ectopy Abdomen: Normal abdominal exam, Abdomen soft, non-tender. Bowel sounds normal. No masses, organomegaly Extremities: No deformities, edema, skin discoloration, clubbing or cyanosis. Good capillary refill. ASSESSMENT/PLAN: 1. 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 2. Primary hypertension - ICD9: 401.9, ICD10: I10 - Controlled - Continue current medications 3. Congestive heart failure, unspecified HF chronicity, unspecified heart failure type (HCC) - ICD9: 428.0, ICD10: I50.9 - stable. 4. Chronic atrial fibrillation (HCC) - ICD9: 427.31, ICD10: I48.20 - continue current issues. 5. Mixed hyperlipidemia - ICD9: 272.2, ICD10: E78.2 - Controlled - Continue current medications 6. ICD (implantable cardioverter-defibrillator) in place - ICD9: V45.02, ICD10: Z95.810 - per cardiology 7. PAD (peripheral artery disease) (HCC) - ICD9: 443.9, ICD10: I73.9 - no claudication. 8. Paroxysmal ventricular tachycardia (HCC) - ICD9: 427.1, ICD10: I47.29 - stable. 9. CLL (chronic lymphocytic leukemia) (HCC) - ICD9: 204.10, ICD10: C91.10 - per Dr Lloyd 10. High thyroid stimulating hormone (TSH) level - ICD9: 794.5, ICD10: R79.89 - check tsh 11. A1c Check a1c. Does not return to endo until next year. Zachary Kennedy MD documented in this encounterOur [facility]09-23-[facility]23 Miscellaneous Notes* Telephone Encounter - Michelle Marrero - 12/02/2022 2:59 PM EDT Patient rescheduled. Michelle Marrero * Telephone Encounter - Michelle Marrero - 11/30/2022 4:16 PM EDT LM for patient to return call. When patient calls, please ask patient to reschedule 12/[address] Lloyd to [place], as Dr. Lloyd needs to work in a critical patient. Michelle Marrero documented in this encounterOur [facility] Of [facility]06-30-2023 Miscellaneous Notes* Telephone Encounter - Joanie Cummings LPN - 09/08/2022 8:52 AM EDT Called pt and reviewed this information. Pt states when he was in the hospital the medication was discontinued. I advised pt to not restart, pt agrees and voices understanding. Pt states he had multiple transfusions while he was in the hospital. He states he is still feeling fatigue. He had labs checked 3 days ago, Hgb was 9.8. I advised pt if he continues to feel fatigue, notes any dark or bloody stools, has SOB or palpitations, that theses are all suggestive of a low HG count and if notes anyof these symptoms to please reach out to PCP for a repeat CBC (Dr Lloyd is out next week). He voices understanding. Pt has a follow up with Dr Ana Laura today. Joanie Cummings LPN * Telephone Encounter - Stu Lloyd DO - 09/07/2022 5:47 PM EDT His recent lab work showed some iron deficiency and looking back through the notes I see that he was hospitalized for GI bleeding. Saw Dr. Kennedy on 08/15. Please advise Ed to discontinue ibrutinib as itincreases his risk of further GI bleeding. The CLL is in complete remission and hopefully will staythat way for a long time. If it recurs we can consider other treatments that he would tolerate. Stu Lloyd DO documented in this encounterOur [facility] Of [facility]06-06-2023 Miscellaneous Notes* Telephone Encounter - Naheed Grimm RN - 08/15/2022 4:13 PM EDT [facility] Care Coordination FOLLOW-UP NOTE Patient identified by name and date of . YES Spoke to spouse Care Coordination Plan: Per Dr. Lloyd, he would like patient to stop ibrutinib for now d/t being onplavix and eliquis. Patient will follow-up as scheduled. Naheed Grimm RN August 15, 2022 * Telephone Encounter - Naheed Grimm RN - 08/15/2022 10:00 AM EDT DISCHARGE CALL BACK Today's date: August 15, 2022 Notified of Pt discharge by: Checked [facility] records Patient discharged on 08/11/2022 from [facility] to Home Primary Cancer Diagnosis: CLL Admitting Diagnosis: GI Bleed d/t diverticular bleed Discharge Summary/SBAR reviewed: Yes Handoff Discussed with [employer]itional [employer]: N/A Psychosocial Risk Factors: None If patient discharged to SNF/Rehab Facility, phone call completed to reinforce discharge instructions and follow up: N/A Call Disposition: Admission unrelated to cancer diagnosis/treatment Spoke to . Patient restarted ibrutinib. Per d/c instructions, patient is to follow-up with PCP for CBC/BMP (08/15/22) and Dr. Du (09/14/22). Patient was also instructed to hold plavix x 7 days and resume Eliquis. Next follow-up with our office is scheduled for 09/05/22- CBC/CMP/Iron studies and 12/04/2022 labs/OV. Naheed Grimm RN documented in this encounterOur [facility] Of Mer[facility]06-06-2023 History of Present illness Narrative* Zachary Kennedy MD - 08/15/2022 2:00 PM EDT Patient presents with: Hospital Follow Up HPI: Patient presents today for office visit for a hospital follow up. HOSPITAL/ER FOLLOW UP: Reason for visit: Pt presented to ER with concern for 24 hours of bright red blood per rectum. Was short of breath with exertion as well, which is new to him. Which facility: [facility] Date of visit: 08/07/22-08/11/22 Diagnosis: GI Bleed Testing done: Hemoglobin:6.6, Colonoscopy showed diverticulosis in the recto- sigmoid colon, in the sigmoid colon, and in the descending colon. Injected, treated w/ a heater probe. Treatment given: given transfusions of packed red blood cells, increased hgb to 9. Held Eliquis andPlavix, resumed Eliquis at discharge, Plavix held for 7 days after. Current symptoms: fatigue. Is improving. Discussed his iron deficiency was likely due to chronic diverticular bleed that we did not find until it was active. Sees GI again 09/14. No current bleeding. Has not moved bowels. No abd pain No shortness of breat No chest pain. MEDICATIONS: Current Outpatient Medications Medication Sig sucralfate (CARAFATE) 1 gram tablet Take 1 tablet by mouth four times daily. ferrous sulfate 325 mg (65 mg iron) tablet Take 325 mg by mouth. rosuvastatin (CRESTOR) 5 mg tablet Take 5 mg by mouth once daily. pantoprazole DR (PROTONIX) 40 mg tablet Take 1 tablet by mouth once daily. sacubitril-valsartan (ENTRESTO) 24-26 mg tablet Take by mouth twice daily. ibrutinib (IMBRUVICA) 140 mg capsule Take 1 capsule (140mg) by mouth once daily with a glass of water. OTC PRODUCT 1,000 mg twice daily. Tumeric complex Lancets lancets Test blood sugar(s) 1 times daily. Dx: Type 2 DM - Controlled E11.9 Insulin: No blood sugar diagnostic (BLOOD GLUCOSE TEST) test strip Test blood sugar(s) 1 times daily. Dx: Type 2 DM - Controlled E11.9 Insulin: No sotalol (BETAPACE) 80 mg tablet Take 1 1/2 tablets by mouth twice daily. apixaban (ELIQUIS) 5 mg tab(s) Take 5 mg by mouth twice daily. cyanocobalamin (VITAMIN B-12) 1,000 mcg tab Take 1,000 mcg by mouth once daily. VITAMIN B COMPLEX-100 ORAL Take 1 tablet by mouth once daily. clopidogrel (PLAVIX) 75 mg tablet Take 75 mg by mouth once daily. SITagliptin-metFORMIN (JANUMET) 50-1,000 mg per tablet Take 0.5 tablets by mouth twice daily. UBIDECARENONE (COQ-10 ORAL) Take 400 mg by mouth once daily. No current facility-administered medications for this visit. 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 Hyperlipidemia Impacted cerumen TN (myocardial infarction) ([facility]) ', ', '03, '04 Pneumonia 03/08/2011 PAST SURGICAL HISTORY Procedure Laterality Date ANGIOPLASTY 02/2004 with stents ARTHRP ACETBLR/PROX FEM PROSTC AGRFT/ALGRFT Right CABG (2) VEIN GRAFTS & ARTERIAL GRAFT(S 09/09/1997 COLONOSCOPY 07/26/2022 COLONOSCOPY SCREENING 08/09/2022 Dr Du CORONARY ARTERY DILATION 03/12/2010 3 stents EGD 07/26/2022 IMPLANTABLE CARDIOVERTER DEFIBRILLATOR 09/05/2010 duel chamber REMV CATARACT EXTRACAP,INSERT LENS Bilateral FAMILY HISTORY Problem Relation Age of Onset Heart Father Cancer Mother Diabetes Sister Diabetes Other Diabetes Other Diabetes Daughter prediabetic Social History Tobacco Use Smoking status: Never Smokeless tobacco: Never Vaping Use Vaping Use: Never used Substance Use Topics Alcohol use: No Drug use: No Reviewed current medications, allergies, past medical history, surgical history, family history andsocial history today. REVIEW OF SYSTEMS All other reviewed and negative other than HPI. VITALS: BP 116/72 Pulse 62 Resp 16 Wt 76.7 kg (169 lb) SpO2 99% BMI 22.92 kg/m Last 4 Encounter Wt Readings: Date: Wt: 08/04/2022 76.7 kg (169 lb 3.2 oz) 07/26/2022 76.2 kg (168 lb) 07/19/2022 76.2 kg (168 lb) 07/04/2022 76.2 kg (168 lb) PHYSICAL EXAMINATION: General appearance: Well appearing, alert, in no acute distress, well-hydrated, well nourished. Slightly pale. Skin: Skin color, texture, turgor normal, no suspicious rashes or lesions Head: Normocephalic, no masses, lesions, tenderness or abnormalitie Lungs: Lungs clear to auscultation. No wheezing, rhonchi, rales Heart: RRR without murmur, gallop, or rubs. No ectopy Abdomen: Normal abdominal exam, Abdomen soft, non-tender. Bowel sounds normal. No masses, organomegaly Extremities: No deformities, edema, skin discoloration, clubbing or cyanosis. Good capillary refill. ASSESSMENT/PLAN: 1. Gastrointestinal hemorrhage associated with intestinal diverticulosis - ICD9: 562.12, ICD10: K57.91 (primary diagnosis) - follow labs. Continue meds. Red flags for re-assessment reviewed with patient in detail. -see gi. - CBC + DIFF - BASIC METABOLIC PNL 2. Chronic atrial fibrillation (HCC) - ICD9: 427.31, ICD10: I48.20 - stable. 3. Coronary artery disease due to lipid rich plaque - ICD9: 414.00, 414.3, ICD10: I25.10, I25.83 - stable. 4. 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 Stay on iron. Zachary Kennedy MD documented in this encounterOur [facility]06-01-2023 Progress note Author David Du [facility] August 10, 2022 6:32pm Note Date/Time August 10, 2022 6:32p m [facility] Medical Records Department [address] [place] [address] Progress Note - GI 08/10/22 1830 MR#: [id number] Acct: [id number] Name: RONNIE LEE Rep #:[id number] : 1940 81 From: David Du DO PCP: Dr. Zachary Kennedy MD Status:ADM I N Location: [place] [address] Subjective Subjective Patient underwent colonoscopy yesterday for an acute lower GI bleed. He was discovered to have bleeding diverticuli that was treated endoscopically. He hasnot seen any more GI bleeding today. Objective Data Objective Data Vital Signs: Vital Signs Temp Pulse Resp BP Pulse Ox O2 Del Method 97.6 F L 62 14 133/70 H 100 Room Air 08/10/22 15:20 08/10/22 15:20 08/10/22 15:20 08/10/22 15:20 08/10/22 15:20 08/10/22 15:20 Oxygen Delivery Method Room Air Weight: 164 lb 0.383 oz Body Mass Index (BMI) 22.2 Intake & Output: Intake and Output for Last 24 Hours 08/08/22 08/09/22 08/10/22 23:59 23:59 23:59 Intake Total 1398.25 / 1428.25 1653 / 1653 350 / 350 Output Total 625 / 625 1300 / 1300 1250 / 1250 Balance 773.25 / 803.25 353 / 353 -900 / -900 Lab / Micro Data Result Diagrams: 08/10/22 05:40 08/10/22 05:40 Labs: Laboratory Results - last 24 hr 08/09/22 20:20: Hgb 9.5 L, Hct 28.1 L 08/09/22 21:09: POC Glucose 206 H 08/10/22 05:40: WBC 5.5, RBC 3.16 L, Hgb 9.2 L, Hct 27.4 L, MCV 86.7, MCH 29.1, MCHC 33.6, RDW Std Deviation 44.2 H, RDW Coeff of [place] 14.1, Plt Count 85 L, MPV 12.5 H, Immature Gran % (Auto) 0.400, Neut % (Auto) 63.2, Lymph % (Auto) 25.5, Lander % (Auto) 8.7, Eos % (Auto) 2.0, Baso % (Auto) 0.2, Absolute Neuts (auto) 3.5, Absolute Lymphs (auto) 1.40, Nucleated RBC % 0 08/10/22 05:40: Sodium 145, Potassium 3.2 L, Chloride 114 H, Carbon Dioxide 24.0, Anion Gap 7, BUN 15, Creatinine 1.11, Estim Creat Clear Calc 53.06, Est GFR (MDRD) Af Amer 81, Est GFR (MDRD) Non-Af 67, BUN/Creatinine Ratio 13.5, Glucose 127 H, Calcium 7.2 L, Total Bilirubin 0.50, AST 12 L, ALT 9 L, Alkaline Phosphatase 53, Total Protein 4.7 L, Albumin 2.2 L, Globulin 2.5, Albumin/Globulin Ratio 0.9 08/10/22 06:24: POC Glucose 118 H 08/10/22 11:05: POC Glucose 137 H 08/10/22 16:49: POC Glucose 207 H Micro: Microbiology 08/07/22 10:51 Stool Stool Occult Blood (HAJA) - Final Occult Blood Positive Physical Exam Narrative General: Alert, oriented, no apparent distress HEENT: Atraumatic, normocephalic Eyes: Anicteric, normal conjunctiva, extraocular movements grossly intact Neck: Supple Respiratory: Clear to auscultation bilaterally, normal respiratory effort Cardiovascular: Regular rate and rhythm GI: Soft, nontender, nondistended Extremities: No edema Musculoskeletal: Moving all extremities Neuro: No overt focal neurological deficits Skin: No rashes appreciated Psych: Cooperative Assessment & Plan Assessment/Plan (1) GI bleed: (2) Anemia: PLAN: Plan Through gentleman comes in with acute lower GI bleed causing blood loss anemia. Is identified as having a diverticular bleed. Hemoglobin is 9.2 which is basically the same as 9.5. Recommend continue all his H&H. Upon DC I would hold Plavix and not restart for 7 days after discharge. He can be discharged onEliquis therapy.. Charges/Coding Visit Charges Inpatient E&M: 71842 Subs Hosp L3 08/10/221831 <Electronically signed by David Friend DO> Cosigner Signature (if applicable): CC: ~ Signed [facility] Work Phone: 1(348) 367-265806-01-[address] López [facility] August 10, 2022 5:03pm Note Date/Time August 10, 2022 9:36a m [facility] Medical Records Department [address] [place] [address] Progress Note - Hospitalist 08/10/22 0935 MR#: [id number] Acct: [id number] Name: RONNIE LEE Rep #:[id number] : 1940 81 From: Lexi López MD PCP: Dr. Zachary Kennedy MD Status:ADM I N Location: [place] [address] Reason for Visit Reason for Visit: Diagnoses Anemia, unspecified (08/07/22) Type 2 diabetes mellitus without complications (08/07/22) Gastrointestinal hemorrhage, unspecified (08/07/22) Subjective Subjective Has not been up and out of bed, awaiting physical therapy eval, does not note any diarrhea or blood, no nausea Objective Data Objective Data Vital Signs: Vital Signs Temp Pulse Resp BP Pulse Ox O2 Del Method 97.6 F L 63 16 137/64 H 100 Room Air 08/10/22 09:34 08/10/22 09:34 08/10/22 09:34 08/10/22 09:34 08/10/22 09:34 08/10/22 09:34 Oxygen Delivery Method Room Air Weight: 74.4 kg Body Mass Index (BMI) 22.2 Intake & Output: Intake and Output for Last 24 Hours 08/08/22 08/09/22 08/10/22 23:59 23:59 23:59 Intake Total 1398.25 / 1428.25 1653 / 1653 Output Total 625 / 625 1300 / 1300 700 / 700 Balance 773.25 / 803.25 353 / 353 -700 / -700 Lab / Micro Data Result Diagrams: 08/10/22 05:40 08/10/22 05:40 Labs: Laboratory Results - last 24 hr 08/07/22 10:55: Crossmatch See Detail 08/07/22 10:55: Crossmatch See Detail 08/09/22 12:44: POC Glucose 95 08/09/22 15:44: POC Glucose 92 08/09/22 20:20: Hgb 9.5 L, Hct 28.1 L 08/09/22 21:09: POC Glucose 206 H 08/10/22 05:40: WBC 5.5, RBC 3.16 L, Hgb 9.2 L, Hct 27.4 L, MCV 86.7, MCH 29.1, MCHC 33.6, RDW Std Deviation 44.2 H, RDW Coeff of [place] 14.1, Plt Count 85 L, MPV 12.5 H, Immature Gran % (Auto) 0.400, Neut % (Auto) 63.2, Lymph % (Auto) 25.5, Lander % (Auto) 8.7, Eos % (Auto) 2.0, Baso % (Auto) 0.2, Absolute Neuts (auto) 3.5, Absolute Lymphs (auto) 1.40, Nucleated RBC % 0 08/10/22 05:40: Sodium 145, Potassium 3.2 L, Chloride 114 H, Carbon Dioxide 24.0, Anion Gap 7, BUN 15, Creatinine 1.11, Estim Creat Clear Calc 53.06, Est GFR (MDRD) Af Amer 81, Est GFR (MDRD) Non-Af 67, BUN/Creatinine Ratio 13.5, Glucose 127 H, Calcium 7.2 L, Total Bilirubin 0.50, AST 12 L, ALT 9 L, Alkaline Phosphatase 53, Total Protein 4.7 L, Albumin 2.2 L, Globulin 2.5, Albumin/Globulin Ratio 0.9 08/10/22 06:24: POC Glucose 118 H Micro: Microbiology 08/07/22 10:51 Stool Stool Occult Blood (HAJA) - Final Occult Blood Positive Physical Exam Narrative General: Alert, oriented, no apparent distress HEENT: Atraumatic, normocephalic Eyes: Anicteric, normal conjunctiva, extraocular movements grossly intact Neck: Supple Respiratory: Clear to auscultation bilaterally, normal respiratory effort Cardiovascular: Regular rate and rhythm GI: Soft, nontender, nondistended Extremities: No edema Musculoskeletal: Moving all extremities Neuro: No overt focal neurological deficits Skin: No rashes appreciated Psych: Cooperative Assessment & Plan Assessment/Plan (1) GI bleed: PLAN: Plan #Acute GI bleed with resultant acute blood loss anemia on chronic anemia -Hemoglobin initially 9 in the ED which trended down to 8.2 with apixaban and Plavix held and PPI started without ultimately trending down to 6.6 and receiving 2 units packed red blood cells -Had recent colonoscopy 07/11 emetine with polypectomy and given rebleeding he hadrepeat colonoscopy on 08/09 with colonic diverticula which were treated and no other abnormalities or sources of bleeding identified -Monitoring hemoglobin -If hemoglobin/patient stable tomorrow and he does well with physical therapy likely can DC home #CAD -Status post PCI and CABG, temporarily holding Plavix, apixaban, continue sotalol, Entresto home regimen #pAfib -Continued on sotalol but both Eliquis and Plavix have been held #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 -Status post AICD placement -Continue sotalol and Entresto -Low threshold for diuresis #CLL -Chronically on ibrutinib which was temporarily held #DVT ppx: SCDs Lexi López MD Time spent in the patient's overall evaluation,decision-making process, review of diagnostic data, adjustment of management, discussion with other providers, nursing nursing and ancillary staff involved in patient's care documentation, 30minutes Charges/Coding Visit Charges Inpatient E&M: 78641 Subs Hosp L2 08/10/22 1703 <Electronically signed by Lexi López MD> Cosigner Signature (if applicable): CC: ~ Signed [facility] Work Phone: 1(687) 330-989905-31-[address] Shahid [facility] August 09, 2022 3:33pm Note Date/Time August 09, 2022 6:38a [facility] Medical Records Department [address] [place] [address] Progress Note - Hospitalist 08/09/22 0638 MR#: [id number] Acct: [id number] Name: RONNIE LEE Rep #:[id number] : 1940 81 From: Lacy Shahid MD PCP: Dr. Zachary Kennedy MD Status:ADM I N Location: [place] [address] Reason for Visit Reason for Visit: Diagnoses Anemia, unspecified (08/07/22) Type 2 diabetes mellitus without complications (08/07/22) Gastrointestinal hemorrhage, unspecified (08/07/22) Subjective Subjective Patient overnight with episode of bloody stools followed by transient ashen appearance and diaphoresis which quickly improved with no specific lightheadedness or dizziness with repeat hemoglobin at that time noted to be 8.6with no further issues following. This a.m. hemoglobin repeat however 7.3 with pending PRBC administration. Patient denies any abdominal pain or cramping or further significant bleeding since. Prep has been successful per discussion with staff and patient. Planned scope today. Patient denies fevers, chills, nausea, emesis, chest pain or dyspnea. Objective Data Objective Data Vital Signs: Vital Signs Temp Pulse Resp BP Pulse Ox O2 Del Method 98 F 62 16 113/58 L 93 Room Air 08/09/22 06:06 08/09/22 06:06 08/09/22 06:06 08/09/22 06:06 08/09/22 06:06 08/09/22 06:06 Oxygen Delivery Method Room Air Weight: 164 lb 0.383 oz Body Mass Index (BMI) 22.2 Intake & Output: Intake and Output for Last 24 Hours 08/07/22 08/08/22 08/09/22 23:59 23:59 23:59 Intake Total 1590.0 / 1590.0 1398.25 / 1428.25 Output Total 625 / 625 400 / 400 Balance 1590.0 / 1590.0 773.25 / 803.25 -370 / -370 Lab / Micro Data Result Diagrams: 08/09/22 04:56 08/09/22 04:56 Labs: Laboratory Results - last 24 hr 08/08/22 04:30: Hemoglobin A1c 5.9 H 08/08/22 06:15: POC Glucose 114 H 08/08/22 09:50: Hgb 7.4 L, Hct 22.5 L 08/08/22 10:53: POC Glucose 132 H 08/08/22 14:10: Hgb 7.9 L, Hct 25.0 L 08/08/22 16:00: POC Glucose 239 H 08/08/22 18:40: Hgb 8.6 L, Hct 27.0 L 08/08/22 22:43: POC Glucose 124 H 08/09/22 04:56: WBC 7.3, RBC 2.53 L, Hgb 7.3 L, Hct 22.4 L, MCV 88.5, MCH 28.9, MCHC 32.6, RDW Std Deviation 44.9 H, RDW Coeff of [place] 14.1, Plt Count 91 L, MPV 13.1 H, Immature Gran % (Auto) 0.300, Neut % (Auto) 62.5, Lymph % (Auto) 29.0, [place]ander % (Auto) 7.4, Eos % (Auto) 0.5, Baso % (Auto) 0.3, Absolute Neuts (auto) 4.6, Absolute Lymphs (auto) 2.12, Nucleated RBC % 0 08/09/22 04:56: Sodium 143, Potassium 3.5, Chloride 112 H, Carbon Dioxide 23.0, Anion Gap 8, BUN 20 H, Creatinine 1.19, Estim Creat Clear Calc 49.50, Est GFR (MDRD) Af Amer 75, Est GFR (MDRD) Non-Af 62, BUN/Creatinine Ratio 16.8, Glucose 108 H, Calcium 7.4 L, Total Bilirubin 0.50, AST 17, ALT 10 L, Alkaline Phosphatase 54, Total Protein 5.1 L, Albumin 2.5 L, Globulin 2.6, Albumin/Globulin Ratio 1.0 Micro: Microbiology 08/07/22 10:51 Stool Stool Occult Blood (HAJA) - Final Occult Blood Positive Physical Exam Narrative Physical Examination: General: Awake, alert, oriented x 3 and cooperative, laying in the PCU bed, fatigued, denies any abdominal discomfort. Skin: Continued pale color, normal turgor, no icterus, no cyanosis. HEENT: AT/NC, EOMI, PERRLA, mildly dry MM. Lungs: CTA bilaterally, moderate effort, mild decrease BL bases, no rales, ronchi or wheezing. Heart: Currently regular rate and rhythm; no gallop, rub audible. Abdomen: Soft, NTTP, ND, hyperactive BS Extremities: No cyanosis, clubbing, or edema. Neurological: Patient awake, alert, oriented as noted, cognitive function intact; pupils equally reactive to light and accommodation, cranial nerves II-XII grossly normal, moving all 4 extremities, no focal deficits, strength moderately globally decreased secondary to acute presentation. Psychiatric: Affect appears fatigued otherwise normal, no acute evidence of depressive or anxiety feelings. Assessment & Plan Assessment/Plan (1) GI bleed: PLAN: Plan The patient is an 81 y/o M w/ PMHx: CAD s/p PCI and CABG, Ischemic cardiomyopathy, Combined Systolic/Diastolic CHF s/p AICD placement, HTN, HLD, PAF, PVOD, Diabetes mellitus type II, GERD, Chronic normocytic anemia, CLL who presents to the [facility] ED on 08/07/22 with history of onset of bright red blood per rectum starting Sunday with reported endoscopy recently with polypectomy by Dr. Mccann with no immediate issues after the procedure until onset of bleedingas noted with increasing fatigue, dyspnea prompting ED evaluation. #1. Acute GI Bleed w/ resultant Acute Blood Loss Anemia on Chronic anemia: Work- up in the ED included T97.5, heart rate 65, BP 124/58, respiratory rate 16,her percent on room air, CBC with WC 10.3, hemoglobin 9.0 initially with repeat trending 8.2, platelet 118 without marked shift, unremarkable coags aside PT 17,CMP with chloride 109, BUN/creatinine 23/1.29, glucose 179, unremarkable hepaticprofile, positive occult stool, type and screen initiated per ED physician. Admission hemoglobin 9.0 with repeat upon admission 8.2, admitted to PCU, maintain on monitor, patient chronic anticoagulation apixaban as well as Plavix held, judiciously hydrated given underlying heart failure history, cycle H&H's, maintained on IV PPI. Repeat Hgb 08/08/22 AM 6.6, administered 1 u PRBC and repeat HH following Hgb 7.5->08/08/22 episodes of bleeding/diaphoresis, repeat H+H 8.6, 08/09/22 Hgb 7.5, given cardiac history 1 u PRBC ordered with repeat HH afterwards. Pending endoscopy 08/09/22. #2. PAF: We will continue patient home sotalol regimen, both apixaban and Plavix currently held given acute presentation as noted. #3. CAD: Status post PCI and CABG, temporarily holding Plavix, apixaban, continue sotalol, Entresto home regimen. #4. Combined systolic and diastolic CHF/ischemic cardiomyopathy: Status post prior AICD placement, temporarily holding patient home Plavix and apixaban regimen given acute presentation, we will continue patient home sotalol as well as Entresto regimen, judiciously hydrating with low threshold to diurese if necessary. #5. CLL: Patient on chronic ibrutinib daily regimen, temporarily held. #6. Hypertension: Continue home regimen including Entresto, PRN hydralazine. #7. Hyperlipidemia: Not on statin therapy, defer to outpatient. #8. Diabetes mellitus type II: Noted in chart history, not on marked regimen, currently n.p.o. status, hemoglobin A1c requested and noted to be 5.9% consistent with prediabetes, will continue Accu-Chek with insulin sliding scale initiated upon presentation. #9. GERD: As noted maintained on IV PPI given #1. #10. DVT prophylaxis: Holding patient chronic anticoagulant given presentation #1. #11. CODE STATUS: Full code. Admission Evaluation Time spent evaluating chart, patient history, patient evaluation, care planning and discussion with specialists: 35 minutes. Charges/Coding Visit Charges Inpatient E&M: 85507 Subs Hosp L2 08/09/22 1533 <Electronically signed by Lacy Shahid MD> Cosigner Signature (if applicable): CC: ~ Signed [facility] Work Phone: [phone]) 850-564305-31-2023 Procedure [facility] 08-09-2022 Procedure [facility]05-30-2023 Consult note Author David Friend [facility] August 08, 2022 4:57pm Note Date/Time August 08, 2022 4:53p m [facility] Medical Records Department [address] [place] [address] Consultation - GI 08/08/22 1652 MR#: [id number] Acct: [id number] Name: RONNIE LEE Rep #:[id number] : 1940 81 From: David Friend DO PCP: Dr. Zachary Kennedy MD Status:ADM I N Location: [place] [address] HPI Consult Data Date of Consult: 08/08/22 HPI Narrative Reason for Consultation: GI bleed HPI Narrative: RONNIE LEE, is a 81 M who presents from home with bright red blood per rectum after undergoing colonoscopy. He has a history of hypertension, hyperlipidemia, paroxysmal atrial fibrillation, coronary artery disease status post coronary artery bypass surgery in 1997 with a JACOBSON to the LAD.?Patient states he feels a bit short of breath with exertion which is new for him howeverdenies any dizziness, lightheadedness chest pain or focal weakness.? He states his last dose of Eliquis was last night approximately 6 PM.? States he had a recent colonoscopy on 07/26/2022.? Patient and deny pallor. ?Patient had hemoglobin of 9.? No current active bleeding.? Patient has never had a GI bleed before.? Patient was sent to Dr. Mccann for evaluation for anemia which no clear etiology is identified at that time. His hemoglobin is decreased down to 6.6 and he is received a unit of packed red blood cells.. His hemoglobin has been improving and it is up to 8.7. He still remains off of clopidogrel and apixaban. [facility] Medical History (Updated 08/08/22 @ 06:22 by Glenys Soto) Atherosclerosis of coronary artery of [place] heart without angina pectoris Bleeding tendency Blood disorder CLL (chronic lymphocytic leukemia) Combined systolic and diastolic congestive heart failure, NYHA class 2 Diabetes Essential hypertension GERD (gastroesophageal reflux disease) Heart attack High cholesterol History of TN (myocardial infarction) History of stress test Hyperlipidemia Ischemic cardiomyopathy Pacemaker Paroxysmal atrial fibrillation Peripheral vascular occlusive disease Type 2 diabetes mellitus without complication Home Medications apixaban 5 mg tablet (Eliquis) 5 mg PO BID 08/29/21 [History Last Taken Unknown] coenzyme Q10 400 mg capsule (Co Q-10) 400 mg PO DAILY 08/29/21 [History Last Taken Unknown] cyanocobalamin (vitamin B-12) 1,000 mcg tablet 1,000 mcg PO DAILY 08/29/21 [History Last Taken Unknown] ibrutinib 140 mg capsule (Imbruvica) 140 mg PO DAILY 08/29/21 [History Last Taken Unknown] pantoprazole 40 mg tablet,delayed release 40 mg PO DAILY 08/29/21 [History Last Taken Unknown] sitagliptin phos 50 mg-metformin ER 1,000 mg tablet,extend rel 24h mp (Janumet XR) 0.5 tab PO BID 08/29/21 [History Last Taken Unknown] vitamin B complex 1 tab PO DAILY 08/29/21 [History Last Taken Unknown] clopidogrel 75 mg tablet 75 mg PO DAILY #90 tabs 12/13/21 [Rx Last Taken Unknown] sacubitril 24 mg-valsartan 26 mg tablet (Entresto) 1 tab PO BID #120 tabs 12/13/21 [Rx Last Taken Unknown] sotalol 80 mg tablet 120 mg PO BID #270 tabs 02/20/22 [Rx Last Taken Unknown] ferrous sulfate 1 tab supplement 08/07/22 [History Last Taken 08/05/22] Allergy/AdvReac Type Severity Reaction Status Date / Time iodine Allergy Severe Anaphylaxis Verified 08/07/22 10:47 oxycodone Allergy Intermediate dizziness Verified 08/07/22 10:47 Food Allergies: Uncoded Allergy Mild HEADACHE Verified 08/07/22 10:47 codeine AdvReac Intermediate Low BP Verified 08/07/22 10:47 promethazine AdvReac Intermediate Low BP Verified 08/07/22 10:47 metformin [From Avandamet] AdvReac Unknown Patient Verified 08/07/22 10:47 refuses rosiglitazone AdvReac Unknown Patient Verified 08/07/22 10:47 [From Avandamet] refuses Family History Father Heart disease Mother Cancer Sister Diabetes Surgical History (Updated 08/08/22 @ 06:22 by Glenys Soto) H/O cardiac catheterization History of bilateral cataract extraction History of coronary artery bypass surgery (1997) History of coronary artery stent placement History of heart artery stent History of hip replacement Presence of implantable cardioverter-defibrillator (ICD) (10/04/17) S/P internal cardiac defibrillator procedure Status post cardiac surgery Social History Smoking Status: Never smoker alcohol intake: never substance use type: does not use ROS ROS Narrative Easy bruising. All review of systems were negative except as mentioned above inthe history of present illness and the other review of systems. Lab / Micro Data Result Diagrams: 08/08/22 14:10 08/08/22 04:30 Labs: Laboratory Results - last 24 hr 08/07/22 10:55: Crossmatch See Detail 08/07/22 16:30: POC Glucose 166 H 08/07/22 17:25: Hgb 8.2 L, Hct 24.9 L 08/07/22 22:40: Hgb 6.6 L, Hct 19.7 L 08/07/22 22:42: POC Glucose 135 H 08/08/22 04:30: WBC 8.1, RBC 2.63 L, Hgb 7.5 L, Hct 23.4 L, MCV 89.0, MCH 28.5, MCHC 32.1, RDW Std Deviation 42.8, RDW Coeff of [place] 13.3, Plt Count 81 L, MPV 12.9 H, Immature Gran % (Auto) 0.200, Neut % (Auto) 59.5, Lymph % (Auto) 31.6, Lander % (Auto) 7.5, Eos % (Auto) 1.0, Baso % (Auto) 0.2, Absolute Neuts (auto) 4.8, Absolute Lymphs (auto) 2.56, Nucleated RBC % 0, Platelet Estimate MOD DEC 08/08/22 04:30: Sodium 143, Potassium 3.7, Chloride 114 H, Carbon Dioxide 23.0, Anion Gap 6, BUN 22 H, Creatinine 1.06, Estim Creat Clear Calc 55.57, Est GFR (MDRD) Af Amer 86, Est GFR (MDRD) Non-Af 71, BUN/Creatinine Ratio 20.8 H, Glucose 128 H, Calcium 6.9 L 08/08/22 04:30: Hemoglobin A1c 5.9 H 08/08/22 06:15: POC Glucose 114 H 08/08/22 09:50: Hgb 7.4 L, Hct 22.5 L 08/08/22 14:10: Hgb 7.9 L, Hct 25.0 L 08/08/22 16:00: POC Glucose 239 H Assessment & Plan Assessment/Plan (1) GI bleed: PLAN: Currently stable. The differential diagnosis for lower GI bleed would be post polypectomy bleed as he did have polyps removed on that particular colonoscopy. Also different diagnosis would be diverticular bleed, angiodysplasia, hemorrhoidal disease. He is on pantoprazole IV. apixaban and clopidogrel are on hold. Plan is for colonoscopy tomorrow. (2) Anemia: PLAN: Hemoglobin currently 9. Does not require transfusion We will recheck in 6 hours and if dropping may need to recheck that in short order or if it stable then just recheck in the morning labs. Type and screen (3) Type 2 diabetes mellitus without complication: PLAN: Hold Sitagliptin/metformin Sliding scale insulin Charges/Coding Visit Charges Inpatient E&M: 38664 Init Hosp L3 08/08/22 1657 <Electronically signed by David Du DO> Cosigner Signature (if applicable): CC: Dr. Nolan Muse DO; Dr. Zachary Kennedy MD~ Signed [facility] Work Phone: [phone]) 727-753105-30-[address] Shahid [facility] August 08, 2022 2:58pm Note Date/Time August 08, 2022 6:40a m [facility] Medical Records Department [address] [place] [address] Progress Note - Hospitalist 08/08/22 0638 MR#: [id number] Acct: [id number] Name: RONNIE LEE Rep #:[id number] : 1940 81 From: Lacy Shahid MD PCP: Dr. Zachary Kennedy MD Status:ADM I N Location: [place] [address] Reason for Visit Reason for Visit: Diagnoses Anemia, unspecified (08/07/22) Type 2 diabetes mellitus without complications (08/07/22) Gastrointestinal hemorrhage, unspecified (08/07/22) Subjective Subjective Patient overnight with no recurrent lightheadedness or dizziness but he was not allowed to get up per staff secondary to repeat H&H trending with noted Hgb 6.6- > administered overnight 1 u PRBC with repeat Hgb this AM 7.5. Patient with no recurrent bloody bowel movements overnight. Discussed patient's status with gastroenterology this morning and initiated on bowel prep with planned future endoscopy. Patient denies any associated abdominal cramping or pain. Patient denies fevers, chills, nausea, emesis, chest pain or dyspnea. Objective Data Objective Data Vital Signs: Vital Signs Temp Pulse Resp BP Pulse Ox O2 Del Method 98.5 F 62 18 119/58 L 100 Room Air 08/08/22 06:12 08/08/22 06:12 08/08/22 06:12 08/08/22 06:12 08/08/22 06:12 08/08/22 06:12 Oxygen Delivery Method Room Air Weight: 164 lb 0.383 oz Body Mass Index (BMI) 22.2 Intake & Output: Intake and Output for Last 24 Hours 08/06/22 08/07/22 08/08/22 23:59 23:59 23:59 Intake Total 1590.0 / 1590.0 432.5 / 432.5 Output Total 150 / 150 Balance 1590.0 / 1590.0 282.5 / 282.5 Lab / Micro Data Result Diagrams: 08/08/22 14:10 08/08/22 04:30 Labs: Laboratory Results - last 24 hr 08/07/22 10:55: PT 17.0 H, INR 1.4, APTT 30.0 08/07/22 10:55: Sodium 142, Potassium 4.2, Chloride 109 H, Carbon Dioxide 24.0, Anion Gap 9, BUN 23 H, Creatinine 1.29, Estim Creat Clear Calc 46.40, Est GFR (MDRD) Af Amer 68, Est GFR (MDRD) Non-Af 56 L, BUN/Creatinine Ratio 17.8, Glucose 179 H, Calcium 7.7 L, Total Bilirubin 0.70, AST 11 L, ALT 9 L, Alkaline Phosphatase 58, Troponin I High Sens 7, Total Protein 5.8 L, Albumin 2.6 L, Globulin 3.2, Albumin/Globulin Ratio 0.8 L, Lipase 18 08/07/22 10:55: Blood Type A NEGATIVE, Antibody Screen NEGATIVE 08/07/22 10:55: WBC 10.3, RBC 3.18 L, Hgb 9.0 L, Hct 27.4 L, MCV 86.2, MCH 28.3,MCHC 32.8, RDW Std Deviation 42.3, RDW Coeff of [place] 13.4, Plt Count 118 L, MPV 12.7 H, Immature Gran % (Auto) 0.200, Neut % (Auto) 70.4 H, Lymph % (Auto) 23.3,Lander % (Auto) 5.7, Eos % (Auto) 0.3, Baso % (Auto) 0.1, Absolute Neuts (auto) 7.2, Absolute Lymphs (auto) 2.39, Nucleated RBC % 0 08/07/22 10:55: Crossmatch See Detail 08/07/22 16:30: POC Glucose 166 H 08/07/22 17:25: Hgb 8.2 L, Hct 24.9 L 08/07/22 22:40: Hgb 6.6 L, Hct 19.7 L 08/07/22 22:42: POC Glucose 135 H 08/08/22 04:30: WBC 8.1, RBC 2.63 L, Hgb 7.5 L, Hct 23.4 L, MCV 89.0, MCH 28.5, MCHC 32.1, RDW Std Deviation 42.8, RDW Coeff of [place] 13.3, Plt Count 81 L, MPV 12.9 H, Immature Gran % (Auto) 0.200, Neut % (Auto) 59.5, Lymph % (Auto) 31.6, Lander % (Auto) 7.5, Eos % (Auto) 1.0, Baso % (Auto) 0.2, Absolute Neuts (auto) 4.8, Absolute Lymphs (auto) 2.56, Nucleated RBC % 0, Platelet Estimate MOD DEC 08/08/22 04:30: Sodium 143, Potassium 3.7, Chloride 114 H, Carbon Dioxide 23.0, Anion Gap 6, BUN 22 H, Creatinine 1.06, Estim Creat Clear Calc 55.57, Est GFR (MDRD) Af Amer 86, Est GFR (MDRD) Non-Af 71, BUN/Creatinine Ratio 20.8 H, Glucose 128 H, Calcium 6.9 L Micro: Microbiology 08/07/22 10:51 Stool Stool Occult Blood (HAJA) - Final Occult Blood Positive Physical Exam Narrative Physical Examination: General: Awake, alert, oriented x 3 and cooperative, laying in the PCU bed, mildly fatigued otherwise no acute distress Skin: Pale color, normal turgor, no icterus, no cyanosis. HEENT: AT/NC, EOMI, PERRLA, mildly dry MM. Lungs: CTA bilaterally, moderate effort, mild decrease BL bases, no rales, ronchi or wheezing. Heart: Regular rate and rhythm; no gallop, rub audible. Abdomen: Soft, NTTP, ND, hyperactive BS Extremities: No cyanosis, clubbing, or edema. Neurological: Patient awake, alert, oriented as noted, cognitive function intact; pupils equally reactive to light and accommodation, cranial nerves II-XII grossly normal, moving all 4 extremities, no focal deficits, strength moderately globally decreased secondary to acute presentation. Psychiatric: Affect appears fatigued otherwise normal, no acute evidence of depressive or anxiety feelings. Assessment & Plan Assessment/Plan (1) GI bleed: PLAN: Plan The patient is an 81 y/o M w/ PMHx: CAD s/p PCI and CABG, Ischemic cardiomyopathy, Combined Systolic/Diastolic CHF s/p AICD placement, HTN, HLD, PAF, PVOD, Diabetes mellitus type II, GERD, Chronic normocytic anemia, CLL who presents to the [facility] ED on 08/07/22 with history of onset of bright red blood per rectum starting Sunday with reported endoscopy recently with polypectomy by Dr. Mccann with no immediate issues after the procedure until onset of bleedingas noted with increasing fatigue, dyspnea prompting ED evaluation. #1. Acute GI Bleed w/ resultant Acute Blood Loss Anemia on Chronic anemia: Work- up in the ED included T97.5, heart rate 65, BP 124/58, respiratory rate 16,her percent on room air, CBC with WC 10.3, hemoglobin 9.0 initially with repeat trending 8.2, platelet 118 without marked shift, unremarkable coags aside PT 17,CMP with chloride 109, BUN/creatinine 23/1.29, glucose 179, unremarkable hepaticprofile, positive occult stool, type and screen initiated per ED physician. Admission hemoglobin 9.0 with repeat upon admission 8.2, admitted to PCU, maintain on monitor, patient chronic anticoagulation apixaban as well as Plavix held, judiciously hydrated given underlying heart failure history, cycle H&H's, type and screen initiated per ED physician, maintain on IV PPI, clears initiallywith n.p.o. status at midnight pending GI evaluation. Repeat Hgb 08/08/22 AM 6.6,administered 1 u PRBC and repeat HH following Hgb 7.5, planned likely prep todayper discussion with GI and endoscopy 08/09/22. #2. PAF: We will continue patient home sotalol regimen, both apixaban and Plavix currently held given acute presentation as noted. #3. CAD: Status post PCI and CABG, temporarily holding Plavix, apixaban, continue sotalol, Entresto home regimen. #4. Combined systolic and diastolic CHF/ischemic cardiomyopathy: Status post prior AICD placement, temporarily holding patient home Plavix and apixaban regimen given acute presentation, we will continue patient home sotalol as well as Entresto regimen, judiciously hydrating with low threshold to diurese if necessary. #5. CLL: Patient on chronic ibrutinib daily regimen, temporarily held. #6. Hypertension: Continue home regimen including Entresto, PRN hydralazine. #7. Hyperlipidemia: Not on statin therapy, defer to outpatient. #8. Diabetes mellitus type II: Noted in chart history, not on marked regimen, currently n.p.o. status, hemoglobin A1c requested and noted to be 5.9% consistent with prediabetes, will continue Accu-Chek with insulin sliding scale initiated upon presentation. #9. GERD: As noted maintained on IV PPI given #1. #10. DVT prophylaxis: Holding patient chronic anticoagulant given presentation #1. #11. CODE STATUS: Full code. Admission Evaluation Time spent evaluating chart, patient history, patient evaluation, care planning and discussion with specialists: 50 minutes. Charges/Coding Visit Charges Inpatient E&M: 38368 [facility] Hosp 08/08/22 1456 <Electronically signed by Lacy Shahid MD> Cosigner Signature (if applicable): CC: ~ Signed [facility] Work Phone: 1(409) 998-150005-30-2023 Miscellaneous Notes* Telephone Encounter - Stu Lloyd DO - 08/08/2022 9:50 AM EDT I already spoke with the ED physician on Sunday or sometime this weekend. Anyway, ibrutinib did notcause his bleeding but it could exacerbate bleeding so I told the ER physician he is not to continue Imbruvica for the time being. Stu Lloyd DO * Telephone Encounter - Lacy Ross - 08/08/2022 9:05 AM EDT Pts calling. Stating that pt is currently in pt at [facility]. That Sunday night he had rectal bleeding. She call 911, pt was dizzy and couldn't walk and took him to the ED. Pt's wanted to make sure knew what was going on. Stated that she asked to call our office. Pt's stated a nurse at [facility] told her she was not familiar with IMBRUVICA and that she looked itup. The nurse informed the pts that it can make a person bleed. Pt's stated that the pt waited the instructed number of days before taking his medication. He is at [facility] waiting on a scope to see where the bleeding in coming from. Please contact pt's . [facility] Stoll [facility] August 07, 2022 2:28pm Note Date/Time August 07, 2022 10:50 am [facility] Medical Records Department [address] [place] [address] Emergency Department Summary 08/07/22 MR#: [id number] Acct: [id number] Name: RONNIE LEE Rep #:[id number] : 1940 81 From: Aram Worley PCP: Dr. Zachary Kennedy MD Status:REG E R Location: ED HPI History of Present Illness Chief Complaint: GI Bleed [facility] Medical History Atherosclerosis of coronary artery of [place] heart without angina pectoris CLL (chronic lymphocytic leukemia) Combined systolic and diastolic congestive heart failure, NYHA class 2 Essential hypertension GERD (gastroesophageal reflux disease) History of TN (myocardial infarction) Hyperlipidemia Ischemic cardiomyopathy Paroxysmal atrial fibrillation Peripheral vascular occlusive disease Type 2 diabetes mellitus without complication Home Medications apixaban 5 mg tablet (Eliquis) 5 mg PO BID 08/29/21 [History Last Taken Unknown] coenzyme Q10 400 mg capsule (Co Q-10) 400 mg PO DAILY 08/29/21 [History Last Taken Unknown] cyanocobalamin (vitamin B-12) 1,000 mcg tablet 1,000 mcg PO DAILY 08/29/21 [History Last Taken Unknown] ibrutinib 140 mg capsule (Imbruvica) 140 mg PO DAILY 08/29/21 [History Last Taken Unknown] pantoprazole 40 mg tablet,delayed release 40 mg PO DAILY 08/29/21 [History Last Taken Unknown] sitagliptin phos 50 mg-metformin ER 1,000 mg tablet,extend rel 24h mp (Janumet XR) 0.5 tab PO BID 08/29/21 [History Last Taken Unknown] vitamin B complex 1 tab PO DAILY 08/29/21 [History Last Taken Unknown] clopidogrel 75 mg tablet 75 mg PO DAILY #90 tabs 12/13/21 [Rx Last Taken Unknown] sacubitril 24 mg-valsartan 26 mg tablet (Entresto) 1 tab PO BID #120 tabs 12/13/21 [Rx Last Taken Unknown] sotalol 80 mg tablet 120 mg PO BID #270 tabs 02/20/22 [Rx Last Taken Unknown] Allergy/AdvReac Type Severity Reaction Status Date / Time iodine Allergy Severe Anaphylaxis Verified 08/07/22 10:47 oxycodone Allergy Intermediate dizziness Verified 08/07/22 10:47 Food Allergies: Uncoded Allergy Mild HEADACHE Verified 08/07/22 10:47 codeine AdvReac Intermediate Low BP Verified 08/07/22 10:47 promethazine AdvReac Intermediate Low BP Verified 08/07/22 10:47 metformin [From Avandamet] AdvReac Unknown Patient Verified 08/07/22 10:47 refuses rosiglitazone AdvReac Unknown Patient Verified 08/07/22 10:47 [From Avandamet] refuses Family History Father Heart disease Mother Cancer Sister Diabetes Surgical History History of bilateral cataract extraction History of coronary artery bypass surgery (1997) History of coronary artery stent placement Presence of implantable cardioverter-defibrillator (ICD) (10/04/17) Social History Smoking Status: Never smoker alcohol intake: never substance use type: does not use EXAM Physical Exam Const Vital Signs: 08/07/22 10:47 08/07/22 12:46 08/07/22 14:00 Temperature 97.5 F L Temperature Source Oral Pulse Rate 76 63 63 Respiratory Rate 16 16 18 Blood Pressure 106/84 H 110/78 105/64 Blood Pressure Mean 91 88 77 Pulse Ox 95 100 99 Oxygen Delivery Method Room Air Room Air Room Air [facility] Narrative Medical decision making narrative: HISTORY OF PRESENT ILLNESS: 81-year-old male here accompanied by his with concern for 24 hours of bright red blood per rectum. Patient states he feels a bit short of breath withexertion which is new for him however denies any dizziness, lightheadedness chest pain or focal weakness. He states his last dose of Eliquis was last nightapproximately 6 PM. States he had a recent colonoscopy on 07/26/2022. Patient and deny pallor REVIEW OF SYSTEMS: Pertinent positives: GI bleeding, shortness of breath Pertinent negatives: Fatigue, lightheadedness or dizziness PHYSICAL EXAM: Nursing triage notes reviewed, Vital signs reviewed Constitutional: please see mdm HENT: MMM, mucosal pallor, conjunctival pallor Eyes: Pupils equal round and reactive to light, Extraocular muscles intact Neck: No stridor, no JVD, full neck ROM Lungs: Clear to auscultation, No wheezing or rales. No increased work of breathing, no conversational dyspnea, no accessory muscle use, no nasal flaring. No respiratory distress noted Heart: Regular rate and rhythm, No murmurs, No rubs and No gallops, 2+ distal pulses (radial, femoral, posterior tibial) in all extremities Abdomen: Soft, there is no tenderness, rigidity, rebound or guarding, no obviousperitoneal signs, no palpable pulsatile abdominal masses, no auscultated abdominal bruit : No CVAT Rectal: Obvious bleeding and rectal vault,, no obvious external hemorrhoids, fissures occult sample sent Extremities: No edema Neuro: No focal neurological deficits, cranial nerves II through XII intact, 5/5strength in all extremities. Intact sensation to light touch in all extremities,2+ reflexes bilateral patella tendons. Normal gait. No ataxia. Skin: Skin pallor noted MEDICAL DECISION MAKING: Chief Complaint: GI bleed on Eliquis External records reviewed: Ejection fraction is 30 to 35%. Noted colonoscopy by Dr. Mccann on 07/26/2022: Impression: - One small polyp in the descending colon, removed with a hot snare. Resected and retrieved. Clip was placed. 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 - Non-bleeding internal hemorrhoids. - Diverticulosis in the sigmoid colon. - The examination was otherwise normal. Recommendation: - Patient has a contact number available for emergencies. The signs and symptoms of potential delayed complications were discussed with the patient. Return to normal activities tomorrow. Written discharge instructions were provided to the patient. - Resume previous diet. - Continue present medications. - Await pathology results. - Repeat colonoscopy date to be determined after pending pathology results are reviewed for surveillance. - Return to physician executive assistant to president in 1 week. - Resume Eliquis (apixaban) tomorrow at prior dose. Procedure Code(s): --- Professional --- 42921, Colonoscopy, flexible; with removal of tumor(s), polyp(s), or other lesion(s) by snare technique Diagnosis Code(s): --- Professional --- D12.4, Benign neoplasm of descending colon K64.8, Other hemorrhoids D50.9, Iron deficiency anemia, unspecified K57.30, Diverticulosis of large intestine without perforation or abscess without bleeding Factors affecting care: On Eliquis secondary to atrial fibrillation, CAD status post CABG in 1997 with JACOBSON to LAD, ischemic cardiomyopathy, status post ICD, CLL Social determinants of health: None History obtained from others: The patient's Consults: General surgery, Gastroenterology, Oncology, Internal Medicine ALL IMAGES HAVE BEEN PERSONALLY REVIEWED AND INTERPRETED BY MYSELF. MDM Narrative: The patient had soft blood pressures otherwise hemodynamically stable and nontoxic-appearing pale on exam I considered the following differential diagnosis: significant anemia, myocardial schema, GI bleed on Eliquis Rectal exam with obvious bright red blood per rectum. No obvious hemorrhoids orfissures. Patient's blood counts had downtrended by 2.9 g/dL. Given his advanced age, history of CAD status post CABG and ischemic cardiomyopathy this was very concerning in the setting of Eliquis. He did not require reversal as he had no evidence of life-threatening bleeding he was hemodynamically stable and no evidence of active bleeding here in the emergency department. The patient will require inpatient admission for observation, repeat CBC and GI urgent consultation. His recent colonoscopy was performed by Dr. Mccann. I reached out to Dr. Mccann's colleague Dr. Pang who is on-call. She stated Dr. Mccann does not see patients at [facility]. I had a discussion with the patient and his who stated they do not want to be transferred at this time and would prefer to stay here at [facility] even if it meant seeing a different spline rolling machine job setter. I reached out to Dr. Du (gastroenterology) he stated . I also reached out to Dr. Lloyd (oncologist) at patient request. Dr. Lloyd recommended holding ibrutinib as it can perpetuate bleeding. I also spoke to the hospitalist Dr. Muse who agreedto admit the patient to the PCU. Total critical care time today provided was at least 0 minutes. This excludes separately billable procedures. There was a high probability of clinically significant/life threatening deterioration in the patient's condition which required my urgent intervention. Shared decision making: I will have a discussion with the patient and or visitors regarding risk/benefits of further testing or admission. They will be made aware of of the risk/benefits inherent in this decision they will be given the opportunity to voice understanding. Lab Data Attestation: I reviewed the patient's lab results. Lab results narrative: EKG with atrial paced rhythm, normal axis, prolonged QT, no ischemic changes CBC with no leukocytosis, moderate to severe anemia with a hemoglobin of 9.0 (baseline hemoglobin 11.9), noted thrombocytopenia INR without evidence of severe coagulopathy BMP without evidence of significant electrolyte abnormalities, no anion gap, no acute kidney injury. Blood type A- Labs: Laboratory Results - last 24 hr 08/07/22 08/07/22 08/07/22 10:55 10:55 10:55 WBC RBC Hgb Hct MCV MCH MCHC RDW Std Deviation RDW Coeff of [place] Plt Count MPV Immature Gran % (Auto) Neut % (Auto) Lymph % (Auto) [place] % (Auto) Eos % (Auto) Baso % (Auto) Absolute Neuts (auto) Absolute Lymphs (auto) Nucleated RBC % PT 17.0 H INR 1.4 APTT 30.0 Sodium 142 Potassium 4.2 Chloride 109 H Carbon Dioxide 24.0 Anion Gap 9 BUN 23 H Creatinine 1.29 Estim Creat Clear Calc 46.40 Est GFR (MDRD) Af Amer 68 Est GFR (MDRD) Non-Af 56 L BUN/Creatinine Ratio 17.8 Glucose 179 H Calcium 7.7 L Total Bilirubin 0.70 AST 11 L ALT 9 L Alkaline Phosphatase 58 Troponin I High Sens 7 Total Protein 5.8 L Albumin 2.6 L Globulin 3.2 Albumin/Globulin Ratio 0.8 L Lipase 18 Blood Type A NEGATIVE Antibody Screen NEGATIVE 08/07/22 10:55 WBC 10.3 RBC 3.18 L Hgb 9.0 L Hct 27.4 L MCV 86.2 MCH 28.3 MCHC 32.8 RDW Std Deviation 42.3 RDW Coeff of [place] 13.4 Plt Count 118 L MPV 12.7 H Immature Gran % (Auto) 0.200 Neut % (Auto) 70.4 H Lymph % (Auto) 23.3 Lander % (Auto) 5.7 Eos % (Auto) 0.3 Baso % (Auto) 0.1 Absolute Neuts (auto) 7.2 Absolute Lymphs (auto) 2.39 Nucleated RBC % 0 PT INR APTT Sodium Potassium Chloride Carbon Dioxide Anion Gap BUN Creatinine Estim Creat Clear Calc Est GFR (MDRD) Af Amer Est GFR (MDRD) Non-Af BUN/Creatinine Ratio Glucose Calcium Total Bilirubin AST ALT Alkaline Phosphatase Troponin I High Sens Total Protein Albumin Globulin Albumin/Globulin Ratio Lipase Blood Type Antibody Screen Discharge Plan Triage Chief Complaint: GI Bleed ED Provider: Aram Stoll Dx/Rx/DC Orders Prescriptions: No Action pantoprazole 40 mg tablet,delayed release (DR/EC) 40 mg PO DAILY Imbruvica 140 mg capsule 140 mg PO DAILY Eliquis 5 mg tablet 5 mg PO BID cyanocobalamin (vitamin B-12) 1,000 mcg tablet 1,000 mcg PO DAILY vitamin B complex Tablet 1 tab PO DAILY Janumet XR 50-1,000 mg tablet, ER multiphase 24 hr 0.5 tab PO BID coenzyme Q10 [Co Q-10] 400 mg capsule 400 mg PO DAILY clopidogrel 75 mg tablet 75 mg PO DAILY Qty: 90 3RF Entresto 24-26 mg tablet 1 tab PO BID Qty: 120 3RF sotalol 80 mg tablet 120 mg PO BID Qty: 270 3RF Primary Care Provider: Zachary Kennedy Referrals: Zachary Kennedy MD [Primary Care Provider] - What to do if you have Problems For any increased pain, shortness of breath, bleeding, nausea or vomiting, chestpain, or any unexpected problems, contact your Primary Care Provider. Call [facility] ([phone]) or report to the closest Emergency Room. Call 911 if necessary. 08/07/22 1428 <Electronically signed by Aram Stoll DO> Cosigner Signature (if applicable): CC: Dr. Zachary Kennedy MD ~ Signed [facility] Work Phone: [phone]) 509-985005-29-2023 History and physical note Author Dr. Muse [facility] August 07, 2022 2:02pm Note Date/Time August 07, 2022 2:02p m [facility] System Medical Records Department [address] [place] [id number] H&P Exam - Hospitalist 08/07/22 1354 MR#: [id number] Acct: [id number] Name: RONNIE LEE Rep #:[id number] : 1940 81 From: Nolan Muse DO PCP: Dr. Zachary Kennedy MD Status:REG E R Location: ED HPI - General General Date of Service: 08/07/22 Chief Complaint: BRBPR HPI Narrative RONNIE LEE, is a 81 M who presents lower GI bleed since Sunday. Has been occurring roughly every few hours since then. Back on the , patient underwent polypectomy on colonoscopy by Dr. Mccann. Had no issues after that procedure. Patient's last bloody bowel movement was prior to his presentation here. Patient was experiencing some shortness of breath which led to him to present here. Patient had hemoglobin of 9. No current active bleeding. Patient has never had a GI bleed before. Patient was sent to Dr. Mccann for evaluation for anemia which no clear etiology is identified at that time. [facility] Medical History Atherosclerosis of coronary artery of [place] heart without angina pectoris CLL (chronic lymphocytic leukemia) Combined systolic and diastolic congestive heart failure, NYHA class 2 Essential hypertension GERD (gastroesophageal reflux disease) History of TN (myocardial infarction) Hyperlipidemia Ischemic cardiomyopathy Paroxysmal atrial fibrillation Peripheral vascular occlusive disease Type 2 diabetes mellitus without complication Home Medications apixaban 5 mg tablet (Eliquis) 5 mg PO BID 08/29/21 [History Last Taken Unknown] coenzyme Q10 400 mg capsule (Co Q-10) 400 mg PO DAILY 08/29/21 [History Last Taken Unknown] cyanocobalamin (vitamin B-12) 1,000 mcg tablet 1,000 mcg PO DAILY 08/29/21 [History Last Taken Unknown] ibrutinib 140 mg capsule (Imbruvica) 140 mg PO DAILY 08/29/21 [History Last Taken Unknown] pantoprazole 40 mg tablet,delayed release 40 mg PO DAILY 08/29/21 [History Last Taken Unknown] sitagliptin phos 50 mg-metformin ER 1,000 mg tablet,extend rel 24h mp (Janumet XR) 0.5 tab PO BID 08/29/21 [History Last Taken Unknown] vitamin B complex 1 tab PO DAILY 08/29/21 [History Last Taken Unknown] clopidogrel 75 mg tablet 75 mg PO DAILY #90 tabs 12/13/21 [Rx Last Taken Unknown] sacubitril 24 mg-valsartan 26 mg tablet (Entresto) 1 tab PO BID #120 tabs 12/13/21 [Rx Last Taken Unknown] sotalol 80 mg tablet 120 mg PO BID #270 tabs 02/20/22 [Rx Last Taken Unknown] Allergy/AdvReac Type Severity Reaction Status Date / Time iodine Allergy Severe Anaphylaxis Verified 08/07/22 10:47 oxycodone Allergy Intermediate dizziness Verified 08/07/22 10:47 Food Allergies: Uncoded Allergy Mild HEADACHE Verified 08/07/22 10:47 codeine AdvReac Intermediate Low BP Verified 08/07/22 10:47 promethazine AdvReac Intermediate Low BP Verified 08/07/22 10:47 metformin [From Avandamet] AdvReac Unknown Patient Verified 08/07/22 10:47 refuses rosiglitazone AdvReac Unknown Patient Verified 08/07/22 10:47 [From Avandamet] refuses Family History Father Heart disease Mother Cancer Sister Diabetes Surgical History History of bilateral cataract extraction History of coronary artery bypass surgery (1997) History of coronary artery stent placement Presence of implantable cardioverter-defibrillator (ICD) (10/04/17) Social History Smoking Status: Never smoker alcohol intake: never substance use type: does not use ROS ROS Narrative Easy bruising. All review of systems were negative except as mentioned above inthe history of present illness and the other review of systems. Vital Signs Vital Signs Vital Signs: 08/07/22 10:47 08/07/22 12:46 Temperature 36.4 C L Temperature Source Oral Pulse Rate 76 63 Respiratory Rate 16 16 Blood Pressure 106/84 H 110/78 Blood Pressure Mean 91 88 Pulse Ox 95 100 Oxygen Delivery Method Room Air Room Air Weight Weight: 75.6 kg Body Mass Index (BMI) 22.6 Physical Exam Const alert and no apparent distress HEENT normocephalic, head/scalp atraumatic and hearing grossly normal bilaterally Eyes Eyes Narrative: No icterus Neck no lymphadenopathy Resp normal respiratory effort, no retractions, no use of accessory muscles and clearto auscultation bilaterally Cardio regular rate, regular rhythm, S1 normal heart sound and S2 normal heart sound GI normal to inspection, nondistended, normoactive bowel sounds, soft to palpation,non-tender and non-distended GI Narrative: Rectal exam shows no active bleeding nor any external hemorrhoids. Extremity normal to inspection and no clubbing, cyanosis or edema Neuro moves all extremities and no focal motor deficits Sensorium / Orientation: awake and alert Psych affect normal Results Lab / Micro Data Attestation: I reviewed the patient's lab results. Result Diagrams: 08/07/22 10:55 08/07/22 10:55 Labs: Laboratory Results - last 24 hr 08/07/22 10:55: PT 17.0 H, INR 1.4, APTT 30.0 08/07/22 10:55: Sodium 142, Potassium 4.2, Chloride 109 H, Carbon Dioxide 24.0, Anion Gap 9, BUN 23 H, Creatinine 1.29, Estim Creat Clear Calc 46.40, Est GFR (MDRD) Af Amer 68, Est GFR (MDRD) Non-Af 56 L, BUN/Creatinine Ratio 17.8, Glucose 179 H, Calcium 7.7 L, Total Bilirubin 0.70, AST 11 L, ALT 9 L, Alkaline Phosphatase 58, Troponin I High Sens 7, Total Protein 5.8 L, Albumin 2.6 L, Globulin 3.2, Albumin/Globulin Ratio 0.8 L, Lipase 18 08/07/22 10:55: Blood Type A NEGATIVE, Antibody Screen NEGATIVE 08/07/22 10:55: WBC 10.3, RBC 3.18 L, Hgb 9.0 L, Hct 27.4 L, MCV 86.2, MCH 28.3,MCHC 32.8, RDW Std Deviation 42.3, RDW Coeff of [place] 13.4, Plt Count 118 L, MPV 12.7 H, Immature Gran % (Auto) 0.200, Neut % (Auto) 70.4 H, Lymph % (Auto) 23.3,Lander % (Auto) 5.7, Eos % (Auto) 0.3, Baso % (Auto) 0.1, Absolute Neuts (auto) 7.2, Absolute Lymphs (auto) 2.39, Nucleated RBC % 0 Micro: Microbiology 08/07/22 10:51 Stool Stool Occult Blood (HAJA) - Final Occult Blood Positive EKG Initial EKG: Attestation: I personally reviewed and interpreted this EKG as follows: EKG Rhythm Intrepretation: Atrial Paced Assessment & Plan Assessment/Plan (1) GI bleed: PLAN: Currently stable If patient does rebleed, then patient may need a CT angiogram Dr. Du has been notified by the emergency room and as well as myself. Clear liquid diet Start pantoprazole IV. Hold apixaban and clopidogrel (2) Anemia: PLAN: Hemoglobin currently 9. Does not require transfusion We will recheck in 6 hours and if dropping may need to recheck that in short order or if it stable then just recheck in the morning labs. Type and screen (3) Type 2 diabetes mellitus without complication: PLAN: Hold Sitagliptin/metformin Sliding scale insulin PLAN: Plan Chronic conditions * A-fib: Status post pacemaker. Currently atrial paced. Continue with sotalol. Hold apixaban given the GI bleed * CLL: ED spoke with Dr. Lloyd, of oncology, who recommended holding his ibrutinib * CAD: Status post CABG and stents. Last stent was sometime ago but well over a year ago. Hold the clopidogrel. VTE prophylaxis: Chemical prophylaxis contraindicated. SCDs. CODE STATUS: Addressed with the patient. Patient wishes to be full CODE STATUS Charges/Coding Visit Charges Inpatient E&M: 18636 Init Hosp L3 08/07/22 1402 <Electronically signed by Nolan Muse DO> Cosigner Signature (if applicable): CC: Dr. Nolan Muse DO; Dr. Zachary Kennedy MD~ Signed [facility] Work Phone: 1(476) 368-454705-29-[address] Stoll [facility] August 07, 2022 2:28pm Note Date/Time August 07, 2022 10:[address] [facility] Medical Records Department [address] [place] [address] Emergency Department Summary 08/07/22 MR#: [id number] Acct: [id number] Name: RONNIE LEE Rep #:[id number] : 1940 81 From: Aram Worley PCP: Dr. Zachary Kennedy MD Status:REG E R Location: ED HPI History of Present Illness Chief Complaint: GI Bleed [facility] Medical History Atherosclerosis of coronary artery of [place] heart without angina pectoris CLL (chronic lymphocytic leukemia) Combined systolic and diastolic congestive heart failure, NYHA class 2 Essential hypertension GERD (gastroesophageal reflux disease) History of TN (myocardial infarction) Hyperlipidemia Ischemic cardiomyopathy Paroxysmal atrial fibrillation Peripheral vascular occlusive disease Type 2 diabetes mellitus without complication Home Medications apixaban 5 mg tablet (Eliquis) 5 mg PO BID 08/29/21 [History Last Taken Unknown] coenzyme Q10 400 mg capsule (Co Q-10) 400 mg PO DAILY 08/29/21 [History Last Taken Unknown] cyanocobalamin (vitamin B-12) 1,000 mcg tablet 1,000 mcg PO DAILY 08/29/21 [History Last Taken Unknown] ibrutinib 140 mg capsule (Imbruvica) 140 mg PO DAILY 08/29/21 [History Last Taken Unknown] pantoprazole 40 mg tablet,delayed release 40 mg PO DAILY 08/29/21 [History Last Taken Unknown] sitagliptin phos 50 mg-metformin ER 1,000 mg tablet,extend rel 24h mp (Janumet XR) 0.5 tab PO BID 08/29/21 [History Last Taken Unknown] vitamin B complex 1 tab PO DAILY 08/29/21 [History Last Taken Unknown] clopidogrel 75 mg tablet 75 mg PO DAILY #90 tabs 12/13/21 [Rx Last Taken Unknown] sacubitril 24 mg-valsartan 26 mg tablet (Entresto) 1 tab PO BID #120 tabs 12/13/21 [Rx Last Taken Unknown] sotalol 80 mg tablet 120 mg PO BID #270 tabs 02/20/22 [Rx Last Taken Unknown] Allergy/AdvReac Type Severity Reaction Status Date / Time iodine Allergy Severe Anaphylaxis Verified 08/07/22 10:47 oxycodone Allergy Intermediate dizziness Verified 08/07/22 10:47 Food Allergies: Uncoded Allergy Mild HEADACHE Verified 08/07/22 10:47 codeine AdvReac Intermediate Low BP Verified 08/07/22 10:47 promethazine AdvReac Intermediate Low BP Verified 08/07/22 10:47 metformin [From Avandamet] AdvReac Unknown Patient Verified 08/07/22 10:47 refuses rosiglitazone AdvReac Unknown Patient Verified 08/07/22 10:47 [From Avandamet] refuses Family History Father Heart disease Mother Cancer Sister Diabetes Surgical History History of bilateral cataract extraction History of coronary artery bypass surgery (1997) History of coronary artery stent placement Presence of implantable cardioverter-defibrillator (ICD) (10/04/17) Social History Smoking Status: Never smoker alcohol intake: never substance use type: does not use EXAM Physical Exam Const Vital Signs: 08/07/22 10:47 08/07/22 12:46 08/07/22 14:00 Temperature 97.5 F L Temperature Source Oral Pulse Rate 76 63 63 Respiratory Rate 16 16 18 Blood Pressure 106/84 H 110/78 105/64 Blood Pressure Mean 91 88 77 Pulse Ox 95 100 99 Oxygen Delivery Method Room Air Room Air Room Air MDM MDM MDM Narrative Medical decision making narrative: HISTORY OF PRESENT ILLNESS: 81-year-old male here accompanied by his with concern for 24 hours of bright red blood per rectum. Patient states he feels a bit short of breath withexertion which is new for him however denies any dizziness, lightheadedness chest pain or focal weakness. He states his last dose of Eliquis was last nightapproximately 6 PM. States he had a recent colonoscopy on 07/26/2022. Patient and deny pallor REVIEW OF SYSTEMS: Pertinent positives: GI bleeding, shortness of breath Pertinent negatives: Fatigue, lightheadedness or dizziness PHYSICAL EXAM: Nursing triage notes reviewed, Vital signs reviewed Constitutional: please see mdm HENT: MMM, mucosal pallor, conjunctival pallor Eyes: Pupils equal round and reactive to light, Extraocular muscles intact Neck: No stridor, no JVD, full neck ROM Lungs: Clear to auscultation, No wheezing or rales. No increased work of breathing, no conversational dyspnea, no accessory muscle use, no nasal flaring. No respiratory distress noted Heart: Regular rate and rhythm, No murmurs, No rubs and No gallops, 2+ distal pulses (radial, femoral, posterior tibial) in all extremities Abdomen: Soft, there is no tenderness, rigidity, rebound or guarding, no obviousperitoneal signs, no palpable pulsatile abdominal masses, no auscultated abdominal bruit : No CVAT Rectal: Obvious bleeding and rectal vault,, no obvious external hemorrhoids, fissures occult sample sent Extremities: No edema Neuro: No focal neurological deficits, cranial nerves II through XII intact, 5/5strength in all extremities. Intact sensation to light touch in all extremities,2+ reflexes bilateral patella tendons. Normal gait. No ataxia. Skin: Skin pallor noted MEDICAL DECISION MAKING: Chief Complaint: GI bleed on Eliquis External records reviewed: Ejection fraction is 30 to 35%. Noted colonoscopy by Dr. Mccann on 07/26/2022: Impression: - One small polyp in the descending colon, removed with a hot snare. Resected and retrieved. Clip was placed. 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 - Non-bleeding internal hemorrhoids. - Diverticulosis in the sigmoid colon. - The examination was otherwise normal. Recommendation: - Patient has a contact number available for emergencies. The signs and symptoms of potential delayed complications were discussed with the patient. Return to normal activities tomorrow. Written discharge instructions were provided to the patient. - Resume previous diet. - Continue present medications. - Await pathology results. - Repeat colonoscopy date to be determined after pending pathology results are reviewed for surveillance. - Return to physician executive assistant to president in 1 week. - Resume Eliquis (apixaban) tomorrow at prior dose. Procedure Code(s): --- Professional --- 55370, Colonoscopy, flexible; with removal of tumor(s), polyp(s), or other lesion(s) by snare technique Diagnosis Code(s): --- Professional --- D12.4, Benign neoplasm of descending colon K64.8, Other hemorrhoids D50.9, Iron deficiency anemia, unspecified K57.30, Diverticulosis of large intestine without perforation or abscess without bleeding Factors affecting care: On Eliquis secondary to atrial fibrillation, CAD status post CABG in 1997 with JACBOSON to LAD, ischemic cardiomyopathy, status post ICD, CLL Social determinants of health: None History obtained from others: The patient's Consults: General surgery, Gastroenterology, Oncology, Internal Medicine ALL IMAGES HAVE BEEN PERSONALLY REVIEWED AND INTERPRETED BY MYSELF. MDM Narrative: The patient had soft blood pressures otherwise hemodynamically stable and nontoxic-appearing pale on exam I considered the following differential diagnosis: significant anemia, myocardial schema, GI bleed on Eliquis Rectal exam with obvious bright red blood per rectum. No obvious hemorrhoids orfissures. Patient's blood counts had downtrended by 2.9 g/dL. Given his advanced age, history of CAD status post CABG and ischemic cardiomyopathy this was very concerning in the setting of Eliquis. He did not require reversal as he had no evidence of life-threatening bleeding he was hemodynamically stable and no evidence of active bleeding here in the emergency department. The patient will require inpatient admission for observation, repeat CBC and GI urgent consultation. His recent colonoscopy was performed by Dr. Mccann. I reached out to Dr. Mccann's colleague Dr. Pang who is on-call. She stated Dr. Mccann does not see patients at [facility]. I had a discussion with the patient and his who stated they do not want to be transferred at this time and would prefer to stay here at [facility] even if it meant seeing a different spline rolling machine job setter. I reached out to Dr. Du (gastroenterology) he stated . I also reached out to Dr. Lloyd (oncologist) at patient request. Dr. Lloyd recommended holding ibrutinib as it can perpetuate bleeding. I also spoke to the hospitalist Dr. Muse who agreedto admit the patient to the PCU. Total critical care time today provided was at least 0 minutes. This excludes separately billable procedures. There was a high probability of clinically significant/life threatening deterioration in the patient's condition which required my urgent intervention. Shared decision making: I will have a discussion with the patient and or visitors regarding risk/benefits of further testing or admission. They will be made aware of of the risk/benefits inherent in this decision they will be given the opportunity to voice understanding. Lab Data Attestation: I reviewed the patient's lab results. Lab results narrative: EKG with atrial paced rhythm, normal axis, prolonged QT, no ischemic changes CBC with no leukocytosis, moderate to severe anemia with a hemoglobin of 9.0 (baseline hemoglobin 11.9), noted thrombocytopenia INR without evidence of severe coagulopathy BMP without evidence of significant electrolyte abnormalities, no anion gap, no acute kidney injury. Blood type A- Labs: Laboratory Results - last 24 hr 08/07/22 08/07/22 08/07/22 10:55 10:55 10:55 WBC RBC Hgb Hct MCV MCH MCHC RDW Std Deviation RDW Coeff of [place] Plt Count MPV Immature Gran % (Auto) Neut % (Auto) Lymph % (Auto) [place] % (Auto) Eos % (Auto) Baso % (Auto) Absolute Neuts (auto) Absolute Lymphs (auto) Nucleated RBC % PT 17.0 H INR 1.4 APTT 30.0 Sodium 142 Potassium 4.2 Chloride 109 H Carbon Dioxide 24.0 Anion Gap 9 BUN 23 H Creatinine 1.29 Estim Creat Clear Calc 46.40 Est GFR (MDRD) Af Amer 68 Est GFR (MDRD) Non-Af 56 L BUN/Creatinine Ratio 17.8 Glucose 179 H Calcium 7.7 L Total Bilirubin 0.70 AST 11 L ALT 9 L Alkaline Phosphatase 58 Troponin I High Sens 7 Total Protein 5.8 L Albumin 2.6 L Globulin 3.2 Albumin/Globulin Ratio 0.8 L Lipase 18 Blood Type A NEGATIVE Antibody Screen NEGATIVE 08/07/22 10:55 WBC 10.3 RBC 3.18 L Hgb 9.0 L Hct 27.4 L MCV 86.2 MCH 28.3 MCHC 32.8 RDW Std Deviation 42.3 RDW Coeff of [place] 13.4 Plt Count 118 L MPV 12.7 H Immature Gran % (Auto) 0.200 Neut % (Auto) 70.4 H Lymph % (Auto) 23.3 [place]ander % (Auto) 5.7 Eos % (Auto) 0.3 Baso % (Auto) 0.1 Absolute Neuts (auto) 7.2 Absolute Lymphs (auto) 2.39 Nucleated RBC % 0 PT INR APTT Sodium Potassium Chloride Carbon Dioxide Anion Gap BUN Creatinine Estim Creat Clear Calc Est GFR (MDRD) Af Amer Est GFR (MDRD) Non-Af BUN/Creatinine Ratio Glucose Calcium Total Bilirubin AST ALT Alkaline Phosphatase Troponin I High Sens Total Protein Albumin Globulin Albumin/Globulin Ratio Lipase Blood Type Antibody Screen Discharge Plan Triage Chief Complaint: GI Bleed ED Provider: Aram Stoll Dx/Rx/DC Orders Prescriptions: No Action pantoprazole 40 mg tablet,delayed release (DR/EC) 40 mg PO DAILY Imbruvica 140 mg capsule 140 mg PO DAILY Eliquis 5 mg tablet 5 mg PO BID cyanocobalamin (vitamin B-12) 1,000 mcg tablet 1,000 mcg PO DAILY vitamin B complex Tablet 1 tab PO DAILY Janumet XR 50-1,000 mg tablet, ER multiphase 24 hr 0.5 tab PO BID coenzyme Q10 [Co Q-10] 400 mg capsule 400 mg PO DAILY clopidogrel 75 mg tablet 75 mg PO DAILY Qty: 90 3RF Entresto 24-26 mg tablet 1 tab PO BID Qty: 120 3RF sotalol 80 mg tablet 120 mg PO BID Qty: 270 3RF Primary Care Provider: Zachary Kennedy Referrals: Zachary Kennedy MD [Primary Care Provider] - What to do if you have Problems For any increased pain, shortness of breath, bleeding, nausea or vomiting, chestpain, or any unexpected problems, contact your Primary Care Provider. Call [facility] ([phone]) or report to the closest Emergency Room. Call 911 if necessary. 08/07/22 1428 <Electronically signed by Aram Stoll DO> Cosigner Signature (if applicable): CC: Dr. Zachary Kennedy MD ~ Signed [facility] Work Phone: [phone]) 369-956805-26-2023 Instructions* Patient Instructions* Bri Scott PA-C - 08/04/2022 2:00 PM EDT -Add carafate, continue PPI and dietary/lifestyle modifications as discussed -Follow up with Dr. Lloyd for repeat labs. If any persistent stomach symptoms or any concern for continued GI blood loss anemia, would plan for repeat EGD in 3 months to assess healing/response to carafate The following instructions are important for you related to your office visit today with the [facility]. INSTRUCTIONS FOLLOWING A POLYP FOUND AT COLONOSCOPY You were found to have a completely benign, non-adenomatous colon polyp which does not increase your risk for colon cancer. I recommend you undergo repeat colonoscopy as symptoms dictate If you have any difficulties or concerns, you should contact our office immediately. INSTRUCTIONS FOR PEPTIC ULCER DISEASE/GASTRITIS I discussed with you the findings of your upper endoscopy. Your upper endoscopy demonstrated signs of peptic ulcer disease or irritation. This can be seen as a range of issues from actual ulcers in the stomach or duodenum (first part of the small bowel) or irritation ranging from redness to more significant irritation with erosions of the stomach or duodenum. These conditions are usually caused from a combination of too much acid production or too little protective mucus production in the stomach. Factors that increase acid production include smoking and stress. If you smoke, stopping smoking will often cure these issues without needing other medications. Factors that decrease the stomach's production of protective mucus include alcohol consumption, smoking, aspirin and other anti-inflammatory use. Over the counter medications including antiacids and acid reducing medications including H2 blockers (Zantac and the like) and proton pump inhibitors (prilosec, prevacid and the like) neutralize or prevent acid production. Prescription strength proton pump inhibitors (PPIs) may be necessary if your symptoms persist. Carafate may be added to PPI treatment in refractory cases. Avoiding smoking, alcohol and antiinflammatory medications are important in the successful treatment of peptic diseases. New or worsening symptoms such are epigastric pain, burning, difficulty swallowing or food stickingshould be relayed to your physician. Feeling full early after eating, or black, tarry, foul smelling stools are also worrisome. If you have any difficulties or concerns, you should contact our office immediately. If you note any additional difficulties, questions, or concerns, you should contact our office immediately @ [phone] and ask to be transferred to the General Surgery department. documented in this encounterOur Lady Of [facility]05-26-[facility]23 History of Present illness Narrative* Bri Scott PA-C - 08/04/2022 1:30 PM EDT FOLLOW UP VISIT - ENDOSCOPY NAME: Ronnie Lee [facility] NO.: [id number] DATE OF SERVICE: 08/04/2022 : 1940 REFERRING PHYSICIAN: Zachary Kennedy MD Ronnie is a patient I am following for history of iron deficiency anemia and CLL. Dr. Mccann performed upper and lower endoscopy on 07/26/22. The patient was found to have a small descending colon polyp which was removed, and was also noted to have sigmoid diverticulosis and hemorrhoids. EGD showedgastritis, regular Z-line, normal examined duodenum. Pathology demonstrated: FINAL DIAGNOSIS A. Duodenum, biopsy: - Duodenal mucosa with no significant pathologic change. B. Stomach, biopsy: - Gastric oxyntic-type mucosa with histologic features consistent with proton pump inhibitor use. - No intestinal metaplasia or morphologic evidence of Helicobacter pylori organisms. C. Esophagus, lower, biopsy: - Mildly hyperplastic squamous esophageal mucosa with reactive epithelial changes. D. Esophagus, mid, biopsy: - Squamous esophageal mucosa with no significant pathologic change. E. Colon, descending polyp, biopsy: - Colonic mucosa with no significant pathologic change, see comment. Diagnosis Comment E. Multiple additional H&E levels were examined. No epithelial dysplasia is identified. The patient notes no complaints since the procedure. VITALS: Blood pressure 132/80, pulse 84, temperature 36.3 C (97.4 F), weight 76.7 kg (169 lb 3.2 oz), SpO2 100 %. General: patient is alert, cooperative, pleasant and in no acute distress On examination, the abdomen is benign. Assessment IMPRESSION: benign colon polyp. gastritis, negative for H. Pylori. PLAN: The operative findings and pathology report were reviewed with the patient, and the patient has hadthe opportunity to ask questions and have questions answered. If the patient notes any problems or changes in bowel function, the patient should contact me immediately. Continue PPI Add carafate -Follow up with Dr. Lloyd for repeat labs. If any persistent stomach symptoms or any concern for continued GI blood loss anemia, would plan for repeat EGD in 3 months to assess healing/response to carafate Patient verbalized understanding of all above and agreed with the plan Diagnoses: (K29.30) Chronic superficial gastritis without bleeding (primary encounter diagnosis) I spent a total of 23 minutes on the date of the service which included preparing to see the patient, [id number] patient care, completing clinical documentation, obtaining and/or reviewing separately obtained history, and performing a medically appropriate examination. Bri Scott PA-C documented in this encounterOur Lady Of Mercy Hospital05-10-2023 History and physical note * Anisha Gonzalez PA-C - 07/19/2022 2:20 PM EDT HISTORY AND PHYSICAL EXAMINATION SERVICE DATE: 07/18/2022 SERVICE TIME: 2:58 PM PRIMARY CARE PHYSICIAN: Zachary Kennedy MD REASON FOR VISIT: Ronnie Lee is a 81 year old male who is scheduled for EGD/Colonoscopy at the request of Dr. Medhat Mccann for consultation. My final recommendation will be communicated back to the requesting physician by way of shared medical record or letter. Subjective The patient has the following: ACTIVE PROBLEM LIST Cll (Chronic Lymphocytic Leukemia) (Hcc) Chronic Atrial Fibrillation (Hcc) Gerd Without Esophagitis Mixed Hyperlipidemia Coronary Artery Disease Due to Lipid Rich Plaque Status Post Coronary Artery Stent Placement Type 2 Diabetes Mellitus With Chronic Kidney Disease, Without Long-Term Current Use of Insulin (Hcc) Iron Deficiency Anemia Due to Chronic Blood Loss Iron Malabsorption Pad (Peripheral Artery Disease) (Hcc) Stage 3 Chronic Kidney Disease (Hcc) Icd (Implantable Cardioverter-Defibrillator) in Place Ischemic Cardiomyopathy Platelets Decreased (Hcc) 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 CHIEF COMPLAINT: Pre-anesthesia optimization HPI: Ronnie Lee is a 81 year old male presenting for pre-anesthesia consultation. Pt has history of anemia. Planned work up for GI bleed. Also has CLL and followed by hematology. Above procedure recommended to manage symptoms. Procedure scheduled on 07/26/22 at [facility]. REVIEW OF SYSTEMS: General: No weight loss, malaise or fevers. Neurological: + Essential tremor. No history of TIA's, stroke, CAT DOG OR OTHER PET GROOMER tumor, impaired sensorium, hemiplegia, paraplegia or quadraplegia. No neurological symptoms or problems. Respiratory: No history of current cough or dyspnea, or pneumonia in the past 6 weeks. No history of respiratory/pulmonary symptoms or problems. Cardiovascular: Positive for: AICD/PPM (2010 with gen change 2018, Medtr[employer], due to ischemic cardiomyopathy), atrial fibrillation, CAD (CABG x 1997), CHF, hyperlipidemia and hypertension Patient's last office visit with time analysis clerk, Dr. Wheatley, The following tests and/or procedures were performed: cardiac catheterization, echocardiogram and cardiac stents. Negative for: murmur/valvular heart disease. GI: Positive for: GERD Negative for: dysphagia, irritable bowel syndrome, inflammatory bowel disease, liver disease and ETOH >2 drinks/day. : Positive for: nephrolithiasis (~ 3 years, passed) and renal failure. Patient's renal failure is chronic. Negative for: BPH, dysuria, frequent urination, urinary incontinence, nocturia >1 time per nightand urgency. Endocrine: Positive for: diabetes mellitus. Patient's diabetes mellitus is controlled by oral agents. Negative for: hypothyroidism. Hematology: + CLL Positive for: anemia, iron deficiency anemia, bruises/bleeds easily, thrombocytopenia and chronic anti-coagulation/platelet meds. Patient is on anti- coagulation/platelet medication(s): DOAC and Plavix. Oncology: + CLL on ibrutinib, follows with Dr. Masci Psych: No history of psychiatric symptoms or problems. Musculoskeletal: Negative for joint pain or swelling, back pain or muscle pain. Skin: Negative for lesions, rash and itching. 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 Hyperlipidemia Impacted cerumen TN (myocardial infarction) ([facility]) , , 03, 04 Pneumonia 03/08/2011 PAST SURGICAL HISTORY Procedure Laterality Date ANGIOPLASTY 02/2004 with stents ARTHRP ACETBLR/PROX FEM PROSTC AGRFT/ALGRFT Right CABG (2) VEIN GRAFTS & ARTERIAL GRAFT(S 09/09/1997 CORONARY ARTERY DILATION 03/12/2010 3 stents IMPLANTABLE CARDIOVERTER DEFIBRILLATOR 09/05/2010 duel chamber REMV CATARACT EXTRACAP,INSERT LENS Bilateral FAMILY HISTORY Problem Relation Age of Onset Heart Father Cancer Mother Diabetes Sister Diabetes Other Diabetes Other Diabetes Daughter prediabetic Social History Tobacco Use Smoking status: Never Smokeless tobacco: Never Vaping Use Vaping Use: Never used Substance Use Topics Alcohol use: No Drug use: No Prior to Admission medications as of 07/19/22 1408 Medication Sig Last Dose Taking ferrous sulfate (IRON) 325 mg (65 mg iron) tablet Take 325 mg by mouth. Taking Yes rosuvastatin (CRESTOR) 5 mg tablet Take 5 mg by mouth once daily. Taking Yes pantoprazole DR (PROTONIX) 40 mg tablet Take 1 tablet by mouth once daily. Taking Yes sacubitril-valsartan (ENTRESTO) 24-26 mg tablet Take by mouth twice daily. Taking Yes ibrutinib (IMBRUVICA) 140 mg capsule Take 1 capsule (140mg) by mouth once daily with a glass of water. Taking Yes OTC PRODUCT 1,000 mg twice daily. Tumeric complex Taking Yes Lancets lancets Test blood sugar(s) 1 times daily. Dx: Type 2 DM - Controlled E11.9 Insulin: No Taking Yes blood sugar diagnostic (BLOOD GLUCOSE TEST) test strip Test blood sugar(s) 1 times daily. Dx: Type 2 DM - Controlled E11.9 Insulin: No Taking Yes sotalol (BETAPACE) 80 mg tablet Take 1 1/2 tablets by mouth twice daily. Taking Yes apixaban (ELIQUIS) 5 mg tab(s) Take 5 mg by mouth twice daily. Taking Yes cyanocobalamin (VITAMIN B-12) 1,000 mcg tab Take 1,000 mcg by mouth once daily. Taking Yes VITAMIN B COMPLEX-100 ORAL Take 1 tablet by mouth once daily. Taking Yes clopidogrel (PLAVIX) 75 mg tablet Take 75 mg by mouth once daily. Taking Yes SITagliptin-metFORMIN (JANUMET) 50-1,000 mg per tablet Take 0.5 tablets by mouth twice daily. Taking Yes UBIDECARENONE (COQ-10 ORAL) Take 400 mg by mouth once daily. Taking Yes No medication comments found. ALLERGIES Allergen Reactions Artificial Sweetene* Other: See Comments headache Avandamet [Rosiglit* Other: See Comments refuses Iodine Anaphylaxis Oxycodone GI Upset, Vomiting Dizziness Promethazine-Codeine Other: See Comments Low BP Objective PHYSICAL EXAM: General: alert and oriented and healthy appearance. Pertinent negatives noted - not distressed. Skin: normal color, no rash or lesions. HEENT: EOM intact and pupils equal round. Pertinent negatives noted - no carotid bruit. Cardiovascular: regular rate and rhythm, normal S1 and S2, no rub, murmurs, or gallop. Implanted ICD left chest. Respiratory: normal breath sounds, no wheezes or crackles. No chest wall deformity or tenderness. Abdomen: soft. Pertinent negatives noted - not tender. Extremities: no deformity, no edema or tenderness, no joint swelling or clubbing. Neurological: normal cognition and motor skills. Positive for abnormal gait. PAIN ASSESSMENT: VITALS: BP 108/64 Pulse 68 Temp (Src) 97.8 (Temporal) Resp 14 Ht 6' 0 (1.83m) Wt 168 lb (76.2kg) SpO2 99% BMI 22.78 kg/(m^2). Diagnostic tests reviewed for today's visit: Lab Value Units Date High Low HB 11.9 g/dL 06/05/2022 17.0 13.0 HCT 36.1 % 06/05/2022 51.0 39.0 WBC 8.57 k/uL 06/05/2022 11.00 3.70 PLT 121 k/uL 06/05/2022 400 150 NA 141 mmol/L 06/05/2022 144 136 K 3.6 mmol/L 06/05/2022 5.1 3.7 GLUC 169 mg/dL 06/05/2022 99 74 BUN 20 mg/dL 06/05/2022 24 9 CREAT 1.26 mg/dL 06/05/2022 1.22 0.73 PTSEC No results within date range. INR No results within date range. APTT No results within date range. ALT 6 U/L 06/05/2022 54 10 AST 11 U/L 06/05/2022 40 14 TBILI 0.4 mg/dL 06/05/2022 1.3 0.2 TSH No results within date range. Lab Value Units Date High Low HCGQT No results within date range. UHCG No results within date range. HCG, BODY* No results within date range. Lab Value Units Date High Low ABORHD No results within date range. ABSCREEN No results within date range. Hemoglobin A1C (%) Date Value 06/15/2022 5.8 05/21/2021 6.5 No results found for this or any previous visit (from the past 8760 hour(s)). No results found for this or any previous visit (from the past 66341 hour(s)). Assessment Patient has the following medical conditions which may affect vaughn-operative course: Chronic atrial fibrillation (HCC) Assessment: Follows with Dr. Wheatley. [facility] 07/06/22. Optimization and note scanned into chart. On Apixaban (ELIQUIS). Mixed hyperlipidemia Assessment: Stable on RX Coronary artery disease due to lipid rich plaque Assessment: Follows with Dr. Wheatley. [facility] 07/06/22. Optimization and note scanned into chart. CABG x 2sequential JACOBSON to LAD and D1 1997, stents 2002 and 2010. On plavix. ICD (implantable cardioverter-defibrillator) in place Assessment: Follows with Dr. Wheatley. [facility] 07/06/22. Optimization and note scanned into chart. Interrogation 07/06/22, Placed 2010, gen change 2017, Medronic. Battery 4 years. Ischemic cardiomyopathy Assessment: chronic, last EF 35%. Follows with Dr. Wheatley. [facility] 07/06/22. Optimization and note scanned into chart. On sacubitril-valsartan (ENTRESTO) Primary hypertension Assessment: BP today in clinic . Stable on RX. GERD without esophagitis Assessment: Stable on RX, further work up in progress Type 2 diabetes mellitus with chronic kidney disease, without long-term current use of insulin (HCC) Assessment: Last HA1C 5.8% on 06/15/22. On Janumet. Stage 3 chronic kidney disease (HCC) Assessment: Last renal function panel 06/05/22 BUN/Creat 20 /1.26 (stable). GFR 57. Platelets decreased (HCC) Assessment: last CBC 06/05/22 Plat= 121K Iron deficiency anemia due to chronic blood loss Assessment: last H/H 06/05/22 11.9/36.1 CLL (chronic lymphocytic leukemia) ([facility]) Assessment: Follows with Dr. Lloyd. On ibrutinib. [place] Activity Status Index: METS: Climb a flight of stairs or walk up a hill (5.50 METs) DASI Score: 5.5 Patient denies any chest pain or undue shortness of breath with the above physical activity. STOP-Bang Score: Has or is being treated for high blood pressure Male patient Denies snoring loudly Denies feeling tired, fatigued, or sleepy during the daytime Has not been observed to stop breathing or choking/gasping during sleep BMI less than or equal to 35 kg/m^2 Patient 50 years old or younger Does not have a large neck STOP-Bang Score: 2 [id number] Score: CHF history: Yes Hypertension history: Yes Diabetes history: Yes [id number] Score: 3 ASA Class: 3 ANESTHESIA FINDINGS: Intubation History: No history of difficult intubation. No abnormal airway history Significant Anesthesia Considerations: potential postop nausea/vomiting Airway History: No history of difficult airway No abnormal airway history I - PHYSICAL EVALUATION AIRWAY Patient intubated: No. Tracheostomy tube not present Mallampati: I. TM distance: >3 FB. Neck ROM: full ROM without neurological symptoms. Mouth opening: adequate. Short neck: no. Thick neck: no Stallings present: yes Lip Bite Test: I DENTAL Additional comments: + caps. II - ANESTHESIA PLAN ASA Score: 3 Anesthetic Plan: MAC Beta Nacho Monitoring Plan Post Procedure Analgesic Plan Prepared for Surgery: optimally prepared for surgery. Has instructions from cardiology and hematology for holding medications pre and post procedure, cardiology ESTEPHANIA scanned into EMR with no further optimization needed CONSULTS: Patient does not require consults for optimization at this time Planned Anesthetic: MAC The Following Tests/Procedures Have Been Initiated: Orders Placed This Encounter ferrous sulfate (IRON) 325 mg (65 mg iron) tablet Sig: Take 325 mg by mouth. Instructions Given to Patient: Instructions located in the after visit summary. Patient given verbal and written preop instructions and voices comprehension and compliance. SIGNATURE: Anisha Gonzalez PA-C PATIENT NAME: Ronnie Lee DATE: July 18, 2022 TIME: 12:48 PM PAGER/CONTACT #: documented in this encounterOur Lady Of Mercy Hospital05-10-2023 Instructions* Patient Instructions* Anisha Gonzalez PA-C - 07/19/2022 2:00 PM EDT PATIENT PREOPERATIVE INSTRUCTIONS Medhat Mccann MD has scheduled you for your procedure at this surgery center: [facility]: [phone] -- [address] [address]. Please read below carefully for your personalized instructions. Arrival Time for Surgery: - The Surgery Center or hospital where you are having surgery will call the afternoon before surgery (or Sunday for Sunday surgery) with a scheduled arrival time. - If you have not heard by 4 pm, please contact the surgery center above. Please be aware that emergency situations arise, which may delay or change your surgical time. If this happens, we will notify you as soon as possible and regret any inconvenience. Dietary Restrictions: - Follow bowel prep instructions: clear liquids need to be stopped 2 hours prior to schedule arrival at facility Is Patient Diabetic:Yes Preoperative Instructions for Patient's with Diabetes Mellitus Diabetic Medication Instructions:For the following Meds, please HOLD 2 DAYS PRIOR TO SURGERY: Glucotrol/Glipizide, Januvia/Sitagliptin, Glyburide, Prandin/Repaglinide, Starlix/Nateglinide,Symlin/Pramlintide, Dulaglutide/Trulicity, Exenatide (Bydureon/Byetta), Semaglutide (Ozempic, Rybelsus), Laraglutide (Victoza/Saxenda), Lixsenstide (Adlyxin). Insulin Medication Instructions:N/A Medications: Unless instructed differently below, stay on all of your medications until your surgery. Approved medications to take the morning of surgery with a sip of water: sacubitril-valsartan (ENTRESTO), sotalol (BETAPACE) If you start any new medications after today's visit, please contact the surgeon's office. Blood Thinning Medications: - Stop NSAIDS (Ibuprofen, Advil, Aleve, Motrin, Celebrex, Mobic, etc.) 7 days before surgery, as directed by your surgeon. - Stop Plavix 5 days before surgery or as directed by physician. - Stop Vitamin E, ALL multi-vitamins, herbals and dietary supplements 7 days before surgery. - You may take Tylenol (Acetaminophen) or any of your pain medications that do not contain aspirin or NSAIDS as needed. - STOP APIXABAN (ELIQUIS) 2 DAYS BEFORE THE PROCEDURE - PLEASE HOLD THE IBRUTINIB (IMBRUVICA) 3 DAYS BEFORE THE PROCEDURE AND 3 DAYS AFTER Important Reminders: - If you use CPAP/BIPAP, bring the machine with you to the surgery center. - If you are prescribed inhalers for breathing, continue using them. - Candy, mints, and tobacco products are NOT permitted the morning of surgery. - Hearing aids, dentures and glasses may be worn the morning of surgery. - NO jewelry, body piercings, makeup, hairpins or contacts are to be worn the day of surgery. If you develop symptoms such as a fever, cold, or flu, or have other changes to your health within TWO DAYS of scheduled surgery or the morning of surgery, please contact the surgery center above. Personal Belongings: -Please have photo ID and insurance cards. -If you do not have a copy of advance directives on file with us, please bring a copy with you on the day of surgery. - Leave ALL valuables and money at home or with family members. For Outpatient Procedures: - YOU MUST HAVE A RESPONSIBLE GI TECH TAKE YOU HOME. A SALES AND MARKETING PROFESSIONAL OR SUPERVISOR PASTE MIXING CANNOT BE MADE A RESPONSIBLE GI TECH. - We recommend that a responsible person stays with you overnight to take care of you. - You cannot stay in a hotel alone after outpatient surgery. You will not be permitted to have yoursurgery, if you do not have someone to take care of you. If you already have an Advance Directive, please fax a copy to [phone] or email to for it to be added to your chart. If you do not have an Advance Directive, you can find the appropriate form and more information at [email or web address]. We recommend that youcomplete the Advance Directive form found on the website and bring it with you the day of your surgery. It can be witnessed and scanned into your chart that day. Anisha Gonzalez PA-C documented in this encounterOur Lady Of Mercy Hospital05-09-2023 Miscellaneous Notes* Telephone Encounter - Naheed Grimm RN - 07/18/2022 3:05 PM EDT [place] Care Coordination FOLLOW-UP NOTE Patient identified by name and date of . YES Spoke to spouse Care Coordination Plan: Patients informed of Dr. Lloyd's response regarding holding ibrutinib. verbalized an understanding of discussed information. Naheed Grimm RN July 18, 2022 * Telephone Encounter - Stu Lloyd DO - 07/18/2022 1:58 PM EDT I would ask him to hold it 3 days prior to and then 3 days after the colonoscopy. Stu Lloyd DO * Telephone Encounter - Anisha Gonzalez PA-C - 07/18/2022 1:[address] Lloyd, I am scheduled to see Mr. Lee for a pre-anesthesia visit tomorrow (07/19/22). He is scheduled for a colonoscopy and EGD with Dr. Mccann on 07/26/22 at [facility]. Does he need to hold his ibrutinub prior to the procedure? I am unfamiliar with this drug and unsure if necessary to hold for a low risk procedure. Thank you for your assistance. Anisha Dial [facility] Office: [phone] documented in this encounterOur Lady Of Mercy Hospital04-25-2023 History of Present illness Narrative* Zachary Kennedy MD - 07/04/2022 1:38 PM EDT Patient presents with: 6 Month Exam HPI: Patient presents today for office visit for follow up. DM: Checking sugars about every other day No medication side effects. Taking medications daily. Does not miss doses BS on Sunday was 121 No unexpected weight loss Watches diet No vision changes. Up to date on exam. Denies any foot lesions, numbness or pain in feet. Last saw Endo beginning part of June. Taken off Glimepiride. Last A1c 5.7 will get a copy of labs. Still wearing compression stockings off and on. Swelling is better. CARDIO: Followed by Dr. Wheatley. Denies chest pain and shortness of breath Still seeing Dr. Lloyd. On Inbruvica. Tolerating well. No dizziness or shortness of breath. Drinking plenty of fluids. Recently saw surgery for evaluation of his gi tract due to his anemia. Following with avascular surgery as well. MEDICATIONS: Current Outpatient Medications Medication Sig rosuvastatin (CRESTOR) 5 mg tablet Take 5 mg by mouth once daily. pantoprazole DR (PROTONIX) 40 mg tablet Take 1 tablet by mouth once daily. sacubitril-valsartan (ENTRESTO) 24-26 mg tablet Take by mouth twice daily. ibrutinib (IMBRUVICA) 140 mg capsule Take 1 capsule (140mg) by mouth once daily with a glass of water. OTC PRODUCT 1,000 mg twice daily. Tumeric complex Lancets lancets Test blood sugar(s) 1 times daily. Dx: Type 2 DM - Controlled E11.9 Insulin: No blood sugar diagnostic (BLOOD GLUCOSE TEST) test strip Test blood sugar(s) 1 times daily. Dx: Type 2 DM - Controlled E11.9 Insulin: No sotalol (BETAPACE) 80 mg tablet Take 1 1/2 tablets by mouth twice daily. apixaban (ELIQUIS) 5 mg tab(s) Take 5 mg by mouth twice daily. cyanocobalamin (VITAMIN B-12) 1,000 mcg tab Take 1,000 mcg by mouth once daily. VITAMIN B COMPLEX-100 ORAL Take 1 tablet by mouth once daily. clopidogrel (PLAVIX) 75 mg tablet Take 75 mg by mouth once daily. SITagliptin-metFORMIN (JANUMET) 50-1,000 mg per tablet Take 0.5 tablets by mouth twice daily. UBIDECARENONE (COQ-10 ORAL) Take 400 mg by mouth once daily. No current facility-administered medications for this visit. ALLERGIES: ALLERGIES Allergen Reactions Artificial Sweetene* Other: See Comments headache Avandamet [Rosiglit* Other: See Comments refuses Iodine Anaphylaxis Oxycodone GI Upset, Vomiting Dizziness Promethazine-Codeine Other: See Comments Low BP 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 Hyperlipidemia Impacted cerumen TN (myocardial infarction) ([facility]) ', ', '03, '04 Pneumonia 03/08/2011 PAST SURGICAL HISTORY Procedure Laterality Date ANGIOPLASTY 02/2004 with stents ARTHRP ACETBLR/PROX FEM PROSTC AGRFT/ALGRFT Right CABG (2) VEIN GRAFTS & ARTERIAL GRAFT(S 09/09/1997 CORONARY ARTERY DILATION 03/12/2010 3 stents IMPLANTABLE CARDIOVERTER DEFIBRILLATOR 09/05/2010 duel chamber REMV CATARACT EXTRACAP,INSERT LENS Bilateral FAMILY HISTORY Problem Relation Age of Onset Heart Father Cancer Mother Diabetes Sister Diabetes Other Diabetes Other Diabetes Daughter prediabetic Social History Tobacco Use Smoking status: Never Smokeless tobacco: Never Vaping Use Vaping Use: Never used Substance Use Topics Alcohol use: No Drug use: No Reviewed current medications, allergies, past medical history, surgical history, family history andsocial history today. REVIEW OF SYSTEMS All other reviewed and negative other than HPI. HEALTH MAINTENANCE: Reviewed health maintenance issues today and recommended the following in detail. URINE ALBUMIN:CREATININE RATIO - per endo SHINGRIX VACCINE(1 of 2) due on 01/30/2014 LDL CHOLESTEROL- per endo DILATED RETINAL EXAM - done last summer. HBA1C - per endo ADVANCE DIRECTIVE DISCUSSION due on 03/12/2022 DEPRESSION ASSESSMENT - done. See epic for details. DIABETIC FOOT EXAM due on 07/20/2022 VITALS: BP 108/60 Pulse 65 Ht 182.9 cm (6') Wt 76.2 kg (168 lb) SpO2 99% BMI 22.78 kg/m Last 4 Encounter Wt Readings: Date: Wt: 06/20/2022 77.5 kg (170 lb 12.8 oz) 06/05/2022 76.4 kg (168 lb 8 oz) 12/12/2021 78.5 kg (173 lb) 12/06/2021 78.2 kg (172 lb 8 oz) PHYSICAL EXAMINATION: General appearance: Well appearing, alert, in no acute distress, well-hydrated, well nourished. Skin: Skin color, texture, turgor normal, no suspicious rashes or lesions Head: Normocephalic, no masses, lesions, tenderness or abnormalities Eyes: Anicteric sclera. Pupils are equally round and reactive to light. Extraocular movements are intact. Lungs: Lungs clear to auscultation. No wheezing, rhonchi, rales Heart: RRR without murmur, gallop, or rubs. No ectopy Abdomen: Normal abdominal exam, Abdomen soft, non-tender. Bowel sounds normal. No masses, organomegaly Extremities: No deformities, edema, skin discoloration, clubbing or cyanosis. Good capillary refill. Musculoskeletal: No joint swelling, deformity, or tenderness Feet:Shoes and socks removed, No deformities, ulcers, calluses, normal distal pulses, sensitive to 10 gm monofilament, and nails notable for Crumbly, Deformed, Hypertrophic, or Yellowish ASSESSMENT/PLAN: 1. Platelets decreased (HCC) - ICD9: 287.5, ICD10: D69.6 (primary diagnosis) - per hematology 2. 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 3. PAD (peripheral artery disease) (HCC) - ICD9: 443.9, ICD10: I73.9 - no changes. 4. Stage 3 chronic kidney disease, unspecified whether stage 3a or 3b CKD (HCC) - ICD9: 585.3, ICD10: N18.30 - have been stable. 5. Type 2 diabetes mellitus with stage 3 chronic kidney disease, without long- term current use of insulin, unspecified whether stage 3a or 3b CKD (HCC) - ICD9: 250.40, 585.3, ICD10: E11.22, N18.30 - Controlled - Continue current medications 6. Chronic atrial fibrillation (HCC) - ICD9: 427.31, ICD10: I48.20 - stable. 7. ICD (implantable cardioverter-defibrillator) in place - ICD9: V45.02, ICD10: Z95.810 - doing well. Monitored by cardiology 8. Mixed hyperlipidemia - ICD9: 272.2, ICD10: E78.2 - good control - Continue current medication. 9. Status post coronary artery stent placement - ICD9: V45.82, ICD10: Z95.5 - doing well. 10. GERD without esophagitis - ICD9: 530.81, ICD10: K21.9 - no issues. 11. Iron deficiency anemia due to chronic blood loss - ICD9: 280.0, ICD10: D50.0 - getting gi eval. 12. CLL (chronic lymphocytic leukemia) (HCC) - ICD9: 204.10, ICD10: C91.10 - per hematology Zachary Kennedy RTO in six months and prn. documented in [place] encounterDaniel [place] [id number] Miscellaneous Notes* Telephone Encounter - Idalia Chapin RN - 06/26/2022 12:53 PM EDT Spoke with Marisol. 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 Advised that if they remove polyps from the area a clip, like a staple, is placed in the area to control the bleeding and cruz the area. Marisol advised that she is just nervous about proceeding with the test, knowing that if they remove anything or if they find an area that is bleeding, they cannot stop it from bleeding. Advised that we can place the clips and it will stop the bleeding in that area. She voiced understanding. Advised if they have any additional questions, please call the office. Idalia Chapin RN * Telephone Encounter - Ginger Tellez - 06/26/2022 9:02 AM EDT Patients left voicemail asking if she can be contacted in regards to procedure for . They are very worried since he is a bleeder and wants more understanding as she stating this is a very dangerous procedure Please advise Ginger Tellez Die Finisher * Telephone Encounter - Eva Salinas LPN - 06/26/2022 8:36 AM EDT Patient's , Marisol, called with questions regarding upcoming procedure. States her is a bleeder and they have questions. Eva Salinas LPN documented in this encounterOur [facility]04-11-2023 Miscellaneous Notes* Telephone Encounter - Tanesha Ojeda MA - 06/20/2022 3:35 PM EDT Patient has been identified by name and date of : Yes Requested Prescriptions Pending Prescriptions Disp Refills pantoprazole DR (PROTONIX) 40 mg tablet 90 tablet 3 Sig: Take 1 tablet by mouth once daily. RX INSTRUCTIONS: Patient aware RX will be sent to pharmacy. No need to notify patient. Patient last office visit: 12/12/21 Patient next office visit: 07/04/22 Tanesha Ojeda MA documented in this encounterOur Lady Of Mercy [facility]04-11-2023 Nurse Note* Beverley Mathis LPN - 06/20/2022 10:19 AM EDT REVIEW OF SYSTEMS: General: The patient NOTES fatigue, denies weight loss, denies weight gain, denies feeling hot, anddenies feelings of cold. Eyes: The patient denies glaucoma, denies eye injury/surgery, does not wear glasses or contacts. Ear/Nose/Throat: The patient denies allergies, denies hayfever, denies ear infections, and denies bloody noses. Cardiovascular: The patient denies chest pain, NOTES heart disease, denies high blood pressure,NOTES cardiac stent, NOTES prior heart attack, denies irregular heart beat, denies high cholesterol, denies poor circulation, denies heart failure, other cardiac issues, denies claudication, denies cold feet, denies peripheral arterial stent. Respiratory: The patient denies tuberculosis, denies pneumonia, denies frequent cough, denies pulmonary embolism, denies shortness of breath, and denies coughing up blood. Gastrointestinal: The patient denies difficulty swallowing, denies acid reflux, denies ulcers, denies vomiting, denies jaundice/hepatitis, denies gallbladder problems, denies black or tarry stools, denies hemorrhoids, denies bleeding from rectum, denies diverticulitis, denies constipation, denies diarrhea, denies loss of stool control, and denies hernias. Kidney/Bladder: The patient denies kidney stones, denies urine infections, and denies bloody urine. Skin: The patient denies a history of skin cancer, denies bleeding/changing moles, and denies a history of skin rash. Neurologic: The patient denies a history of epilepsy/convulsions, denies headaches, denies head/spinal injuries, and denies stroke/TIA. Psychiatric: The patient denies psychiatric medications, denies depression, and denies voices, denies substance abuse. Endocrine: The patient denies thyroid disorders, NOTES diabetes, and denies hormonal problems. Hematologic: The patient NOTES a history of bruising, NOTES bleeding, and denies anemia, denies blood clots. Infections: The patient denies a history of measles and mumps, denies rheumatic fever, and denies sexually transmitted diseases. Musculoskeletal: The patient denies back pain/injury, denies back problems, denies sciatica, deniesknee/foot trouble, denies arthritis, or denies gout. When was patient's last Mammogram screening? N/A Last Colonoscopy: no prior Beverley Mathis LPN documented in this encounterOur Lady Of Mercy Hospital04-11-2023 History of Present illness Narrative* Bri Scott PA-C - 06/20/2022 9:45 AM EDT HISTORY AND PHYSICAL Ronnie Lee 1940 REFERRING PHYSICIAN: No ref. provider found CHIEF COMPLAINT: Consult (EGD/ Colonoscopy) HPI: The patient is a 81 year old male referred for endoscopy. Edward notes a history of iron deficiency anemia and CLL. He is referred by Dr. Lloyd in hematology/oncology for EGD and colonoscopy to evaluate for possible GI source of blood loss. Patient notes occasional diarrhea. He denies any recent acute change in bowel habits, weight changes, visible blood in stools, black tarry stools or abdominal pain. Notes family history of colon cancer-niece diagnosed in her 40s. The patient notes no upper GI complaints. Ronnie has not undergone prior endoscopy. Patient's past medical history is significant for CLL, CAD, DM type 2, GERD, hyperlipidemia, past TN, ICD in place. He follows with Dr. Kennedy in primary care and Dr. Wheatley in cardiology. Patient denies chest pain, shortness of breath or recent hospitalizations. Denies problems with sedation in the past. 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 ibrutinib (IMBRUVICA) 140 mg capsule Take 1 capsule (140mg) by mouth once daily with a glass of water. OTC PRODUCT 1,000 mg twice daily. Tumeric complex pantoprazole DR (PROTONIX) 40 mg tablet Take 1 tablet by mouth once daily. Lancets lancets Test blood sugar(s) 1 times daily. Dx: Type 2 DM - Controlled E11.9 Insulin: No blood sugar diagnostic (BLOOD GLUCOSE TEST) test strip Test blood sugar(s) 1 times daily. Dx: Type 2 DM - Controlled E11.9 Insulin: No sotalol (BETAPACE) 80 mg tablet Take 1 1/2 tablets by mouth twice daily. apixaban (ELIQUIS) 5 mg tab(s) Take 5 mg by mouth twice daily. cyanocobalamin (VITAMIN B-12) 1,000 mcg tab Take 1,000 mcg by mouth once daily. VITAMIN B COMPLEX-100 ORAL Take 1 tablet by mouth once daily. clopidogrel (PLAVIX) 75 mg tablet Take 75 mg by mouth once daily. SITagliptin-metFORMIN (JANUMET) 50-1,000 mg per tablet Take 0.5 tablets by mouth twice daily. glimepiride (AMARYL) 1 mg tablet Take 0.5 mg by mouth once daily. UBIDECARENONE (COQ-10 ORAL) Take 400 mg by mouth once daily. No current facility-administered medications for this visit. ALLERGIES: Artificial Sweetener [Other], Avandamet [Rosiglitazone-Metformin], Iodine, Oxycodone, and Promethazine-Codeine PERSONAL HISTORY: Social History Tobacco Use Smoking status: Never Smokeless tobacco: Never Vaping Use Vaping Use: Never used Substance Use Topics Alcohol use: No Drug use: No FAMILY HISTORY: FAMILY HISTORY Problem Relation Age of Onset Heart Father Cancer Mother Diabetes Sister Diabetes Other Diabetes Other Diabetes Daughter prediabetic REVIEW OF SYMPTOMS: The review of systems data was entered by the nurse and reviewed by in Nursing Notes: Beverley Mathis LPN 06/20/2022 10:22 AM Signed REVIEW OF SYSTEMS: General: The patient NOTES fatigue, denies weight loss, denies weight gain, denies feeling hot, anddenies feelings of cold. Eyes: The patient denies glaucoma, denies eye injury/surgery, does not wear glasses or contacts. Ear/Nose/Throat: The patient denies allergies, denies hayfever, denies ear infections, and denies bloody noses. Cardiovascular: The patient denies chest pain, NOTES heart disease, denies high blood pressure,NOTES cardiac stent, NOTES prior heart attack, denies irregular heart beat, denies high cholesterol, denies poor circulation, denies heart failure, other cardiac issues, denies claudication, denies cold feet, denies peripheral arterial stent. Respiratory: The patient denies tuberculosis, denies pneumonia, denies frequent cough, denies pulmonary embolism, denies shortness of breath, and denies coughing up blood. Gastrointestinal: The patient denies difficulty swallowing, denies acid reflux, denies ulcers, denies vomiting, denies jaundice/hepatitis, denies gallbladder problems, denies black or tarry stools, denies hemorrhoids, denies bleeding from rectum, denies diverticulitis, denies constipation, denies diarrhea, denies loss of stool control, and denies hernias. Kidney/Bladder: The patient denies kidney stones, denies urine infections, and denies bloody urine. Skin: The patient denies a history of skin cancer, denies bleeding/changing moles, and denies a history of skin rash. Neurologic: The patient denies a history of epilepsy/convulsions, denies headaches, denies head/spinal injuries, and denies stroke/TIA. Psychiatric: The patient denies psychiatric medications, denies depression, and denies voices, denies substance abuse. Endocrine: The patient denies thyroid disorders, NOTES diabetes, and denies hormonal problems. Hematologic: The patient NOTES a history of bruising, NOTES bleeding, and denies anemia, denies blood clots. Infections: The patient denies a history of measles and mumps, denies rheumatic fever, and denies sexually transmitted diseases. Musculoskeletal: The patient denies back pain/injury, denies back problems, denies sciatica, deniesknee/foot trouble, denies arthritis, or denies gout. When was patient's last Mammogram screening? N/A Last Colonoscopy: no prior Beverley Mathis LPN I have confirmed and edited as necessary, the PFSH and ROS obtained by others. Bri Scott PA-C PHYSICAL EXAMINATION: General: The patient is 81 year old male, well nourished, well hydrated in no acute distress. The patient is oriented to time, place, and person. VITALS: Blood pressure 132/80, pulse 88, temperature (!) 35.8 C (96.4 F), height 182.9 cm (6'), weight 77.5 kg (170 lb 12.8 oz), SpO2 97 %. Body mass index is 23.16 kg/m . HEENT: Normal cephalic, ataumatic, pupils are equally round, sclera are anicteric, mucous membranesare moist, oropharynx is clear. Neck has no masses, asymmetry or lymphadenopathy. Respiratory: Clear to auscultation and percussion. Normal respiratory excursion and pattern. Cardiac: Examination is regular rate and rhythm. Normal S1/S2 Abdominal exam: Soft, nontender, with no palpable masses. No hepatosplenomegaly. No palpable hernias. Extremities: no clubbing, cyanosis or edema. No adenopathy. LABORATORY VALUES: As Noted RADIOLOGIC STUDIES: As Noted Assessment IMPRESSION: iron deficiency anemia PLAN: I have reviewed my findings with the surgeon. Will plan for upper and lower endoscopy. We discussed the risks and benefits of the planned endoscopy. I have informed the patient that complications can occur including failure to complete the endoscopy and perforation. The patient had the opportunity to ask questions concerning the planned endoscopy. My staff has also explained the procedure to the patient in understandable terms and has given the patient printed material concerning the procedure. The patient freely consents to surgery. The patient was offered a [facility]/procedure [facility]. I have counseled the patient regarding the risk of exposure to and/or potential harm posed by the COVID-19 virus with having a surgery/procedure at this time versus the risk of delaying the surgery/procedure. It is not possible to know either the risk of delaying the surgery or procedure or chance of getting an infection with perfect accuracy, but a joint decision was made between the patient and myself to proceed at this time with endoscopy. I plan to use Miralax bowel preparation We will plan for Monitored Anesthetic Care. Cardiac history, ICD in place Patient instructed to contact PCP for instructions regarding diabetic medication, which may requireadjustment during bowel preparation and/or day of procedure. Patient otherwise to remain on routinemedications including his anticoagulation for endoscopy procedure Diagnoses: (D50.9) Iron deficiency anemia, unspecified iron deficiency anemia type (primary encounter diagnosis) (Z95.810) ICD (implantable cardioverter-defibrillator) in place (C91.10) CLL (chronic lymphocytic leukemia) (HCC) (Z79.01) On continuous oral anticoagulation Consultation requested by Dr. Lloyd for an opinion regarding anemia. My final recommendations will be communicated back to the requesting physician by way of shared Medical record or letter to requesting physician via US mail. Bri Scott PA-C documented in this encounterOur [facility] Of [facility]04-04-2023 History of Present illness Narrative* Abigail Moss DO - 06/13/2022 12:00 AM EDT NAME: [facility] NO: [id number] DATE OF SERVICE: 06/13/2022 Subjective: Mr. Lee is here to follow up on peripheral arterial disease. He denies any significant lifestyle-limiting claudication. Overall, he is doing well. He does have CLL and he follows withDr. Lloyd. He says overall, he feels some fatigue and tiredness. He walks as tolerated. Especially in the winter, he has definitely decreased his activity compared to in the summertime. Objective: His vital signs are stable. He is in no distress. He has trace bilateral lower extremityedema. Reviewed his PVRs. They are unchanged from September. He has mild bilateral disease based on waveforms. His PVRs are noncompressible. Assessment/Plan: Peripheral arterial disease. Recommend that Mr. Lee continue exercising and walking as tolerated, continue with blood pressure and cholesterol control. He will follow up with me in one year, or sooner with any concerns. Abigail Moss D.O. KB/[id number] Audio #: [id number] Date Dictated: 06/13/2022 09:35:14 Date Typed: 06/19/2022 07:31:51 Date Revised: documented in this encounterOur Lady Of [facility]cy Hospital03-30-2023 Miscellaneous Notes* Telephone Encounter - Judith Armendariz Pss - 06/08/2022 2:09 PM EDT Spoke with spouse. She was not at home and unable to check her calendar. She will call back to schedule EGD/Colonoscopy Consult with Gen Surg. * Telephone Encounter - Beulah Navarrete LPN - 06/08/2022 11:50 AM EDT Spoke with pts. , informed pts. iron is low again. He received iron intravenously in December 2018. At that time she declined colonoscopy multiple times. Since he is on apixaban and Plavix, it is very important for him to have an EGD and colonoscopy. Dr. Lloyd recommends starting iron supplementOTC ferrous sulfate 1 tablet every other day. Refer to general surgery here for EGD/Colonoscopy. is agreeable and will wait for call from PSS to get consult scheduled. Beulah Navarrete LPN * Telephone Encounter - Beulah Navarrete LPN - 06/08/2022 9:15 AM EDT Unable to leave message on voicemail , mailbox full. Will attempt to contact again later. Sent information to pt. Via my chart * Telephone Encounter - Stu Lloyd DO - 06/08/2022 6:13 AM EDT His iron is low again. He received iron intravenously in December 2018. At that time per his hedeclined colonoscopy multiple times. Since he is on apixaban and Plavix, it is very important for him to have an EGD and colonoscopy. Additionally I recommend starting iron supplement OTC ferrous sulfate 1 tablet every other day. We can refer to general surgery here for endoscopy or perhaps he could see Dr. Nogueira. Stu Lloyd DO documented in this encounterOur Lady Of Mercy Hospital03-29-2023 Miscellaneous Notes* Telephone Encounter - Delphine Thayer Pss - 06/07/2022 11:57 AM EDT Results faxed as requested Delphine Em * Telephone Encounter - Mikaela Mantilla - 06/07/2022 10:24 AM EDT Carmen from the [place] would like the results from the most recent CBC faxed to [phone] documented in this encounterOur Lady Of Mercy Hospital03-27-2023 History of Present illness Narrative* Stu Lloyd, - 06/05/2022 2:50 PM EDT Diagnosis: 1) CLL HPI: The patient is an 81 yo male who has a h/o ischemic CM s/p dual chamber ICD 03/22. Was hospitalized for pneumonia 03/08-03/11/11. Was found to have elevated WBC count (labs not available). Repeat CBC via PCP's office 03/24/11: WBC=18.4K with 15K lymphs. Hgb=12.6 gm/dl and platelets 203K. Underwent right total hip replacement on 07/16/2017. Current therapy: 1) Ibrutinib. On full dose he had dizziness but same time he was on higher dose carvedilol. Carvedilol dose was decreased ibrutinib was decreased to 1 capsule daily. Presents for ongoing hematologic management. Interim history: Back from [place] about a week and a half ago. While he was there he had no emergency room visits or hospitalization. No acute illnesses. He has been feeling well in general. Dr. Wheatley started him on Entresto. He is tolerating ibrutinib at current dose well. No further dizziness. He has not had any episodes of unusual bleeding or unexplained bruising. PMH, medications and allergies as below personally reviewed by me today. Any changes documented in appropriate section. ROS: Constitutional: Normal appetite. No fever or night sweats. Neuro: Denies BECK. No symptoms of neuropathy. HEENT: No recent change in voice, vision or hearing. Resp: Denies cough, wheeze and hemoptysis. CVS: No complaints of chest pain, pressure or palpitation. Not short of breath at rest or with moderate activity. GI: No dysgeusia. No odynophagia or dysphagia. No nausea or vomiting. No diarrhea or change in bowel habits. Endo: No hot flashes. Derm: No rash. No episodes of jaundice or diffuse itch. MS: No MS pain. Heme: See above. Psych: Normal mood. PHYSICAL EXAM: Vitals: Blood pressure 150/78, pulse 62, temperature 36.3 C (97.4 F), height 176.8 cm (5' 9.59), weight 76.4 kg (168 lb 8 oz), SpO2 97 %. Well-appearing and in no acute distress. EYES: Sclerae are anicteric bilaterally. NECK: Supple. LYMPHATIC: There is no palpable cervical, supraclavicular or axillary adenopathy. RESPIRATORY: Inspiratory breath sounds are of normal intensity in all roberts. No coarse rhonchi or wheezing. CARDIOVASCULAR: Rhythm is regular. ABDOMEN: The abdomen is nondistended. Extremities: Free of edema. SKIN: No jaundice or rash. Small ecchymoses b/l forearms-no significant change. LABS: Component Latest Ref Rng & Units 06/05/2022 WBC 3.70 - 11.00 k/uL 8.57 RBC 4.20 - 6.00 m/uL 4.21 Hemoglobin 13.0 - 17.0 g/dL 11.9 (L) Hematocrit 39.0 - 51.0 % 36.1 (L) MCV 80.0 - 100.0 fL 85.7 MCH 26.0 - 34.0 pg 28.3 MCHC 30.5 - 36.0 g/dL 33.0 RDW-CV 11.5 - 15.0 % 13.4 Platelet Count 150 - 400 k/uL 121 (L) MPV 9.0 - 12.7 fL 12.5 Neut% % 60.7 Abs Neut (ANC) 1.45 - 7.50 k/uL 5.20 Lymph% % 28.1 Abs Lymph 1.00 - 4.00 k/uL 2.41 Lander% % 9.5 Abs Lander <0.87 k/uL 0.81 Eosin% % 1.3 Abs Eosin <0.46 k/uL 0.11 Baso% % 0.2 Abs Baso <0.11 k/uL <0.03 Immature Gran % % 0.2 IMMATURE GRANS (ABS) <0.10 k/uL <0.03 NRBC /100 WBC 0.0 Absolute nRBC <0.01 k/uL <0.01 DTYPE Auto Protein, Total 6.3 - 8.0 g/dL 6.8 Albumin 3.9 - 4.9 g/dL 3.8 (L) Calcium 8.5 - 10.2 mg/dL 9.0 Bilirubin, Total 0.2 - 1.3 mg/dL 0.4 Alkaline Phosphatase 38 - 113 U/L 66 AST 14 - 40 U/L 11 (L) ALT 10 - 54 U/L 6 (L) Glucose 74 - 99 mg/dL 169 (H) BUN 9 - 24 mg/dL 20 Creatinine 0.73 - 1.22 mg/dL 1.26 (H) Sodium 136 - 144 mmol/L 141 Potassium 3.7 - 5.1 mmol/L 3.6 (L) Chloride 97 - 105 mmol/L 108 (H) CO2 22 - 30 mmol/L 24 Anion Gap 9 - 18 mmol/L 9 eGFR >=60 mL/min/1.73m 57 (L) LD 135 - 225 U/L 145 ASSESSMENT/PLAN: (C91.10) CLL (chronic lymphocytic leukemia) (HCC) (primary encounter diagnosis) Assessment: -Indication for therapy was progressive shortening of the doubling time. -Continues to tolerate ibrutinib at 140 mg a day very well. No symptomatic side effects currently. -Reviewed lab work in detail. Total white count lymphocyte count remain normal. He is a little moreanemic than he had been in the past. No symptoms of GI bleeding. Possibly related to underlying chronic kidney disease although creatinine today is improved from previous values. -He requires apixaban for atrial fibrillation and he is also on Plavix. We previously reviewed the risk and benefit. He is at increased risk of hemorrhage but the dose ibrutinib is lower than standard dosing. Plan: -Check iron levels and reticulocyte count today. If less than 20% iron saturation or ferritin under50, he will require iron replacement. -CBC/CMP in about 3 months. -OV in about 6 months. Portions of this documentation were copied and pasted from previous office visit notes in order to provide a cohesive continuity of the history. The note has been reviewed and edited and updated as necessary. I spent a total of 20 minutes on the date of the service which included preparing to see the patient, [id number] patient care, completing clinical documentation, obtaining and/or reviewing separately obtained history, performing a medically appropriate examination, counseling and educating the pat ient/family/caregiver, communicating with other HCPs (not separately reported), and communicating results to the patient/family/caregiver. Stu Lloyd DO documented in this encounterOur Lady Of Mercy Hospital11-29-2022 Miscellaneous Notes* Telephone Encounter - EVETTE Pink - 02/07/2022 1:55 PM EST SW spoke to pt's who reports [employer] has approved his renewal through 02/2023. EVETTE Pink-S * Telephone Encounter - Almita Rosas LPN - 01/27/2022 4:26 PM EST Maria Victoria, Patient and are requesting assistance with re-enrollment with [employer] PAP for Imbruvica. Almita Rosas LPN documented in this encounterOur Lady Of Mercy Hospital10-03-2022 History of Present illness Narrative* Zachary Kennedy MD - 12/12/2021 2:38 PM EDT Patient presents with: 6 Month Exam HPI: Patient presents today for office visit for leaving Dec 26 for the winter gone till May DM: Reports overall feeling well. Medication side effects: No. Home sugar check frequency/results:yes once daily 102 this morning Hypoglycemic spells: No. Watching diet: Yes. Unexpected weight loss: No. Polyuria, polydipsia: No. Vision Changes: No. Foot lesions or numbness or pain: No. Sees endo soon. Wearing a compression stocking on his right leg. His weight is down. CARDIO: got info from Dr. Wheatley. He will now be following him. Will be seeing him in the am. ICD has not fired off. No chest pain or shortness of breath. No palpitations. Seeing heme onc. Had labs done recently by them. PAD:saw Dr. Moss in September. Will be seeing him in one year. MEDICATIONS: Current Outpatient Medications Medication Sig OTC PRODUCT 1,000 mg twice daily. Tumeric complex ibrutinib (IMBRUVICA) 140 mg capsule Take 1 capsule (140mg) by mouth once daily with a glass of water. pantoprazole DR (PROTONIX) 40 mg tablet Take 1 tablet by mouth once daily. Lancets lancets Test blood sugar(s) 1 times daily. Dx: Type 2 DM - Controlled E11.9 Insulin: No blood sugar diagnostic (BLOOD GLUCOSE TEST) test strip Test blood sugar(s) 1 times daily. Dx: Type 2 DM - Controlled E11.9 Insulin: No sotalol (BETAPACE) 80 mg tablet Take 1 1/2 tablets by mouth twice daily. apixaban (ELIQUIS) 5 mg tab(s) Take 5 mg by mouth twice daily. cyanocobalamin (VITAMIN B-12) 1,000 mcg tab Take 1,000 mcg by mouth once daily. VITAMIN B COMPLEX-100 ORAL Take 1 tablet by mouth once daily. clopidogrel (PLAVIX) 75 mg tablet Take 75 mg by mouth once daily. SITagliptin-metFORMIN (JANUMET) 50-1,000 mg per tablet Take 0.5 tablets by mouth twice daily. glimepiride (AMARYL) 1 mg tablet Take 0.5 mg by mouth once daily. UBIDECARENONE (COQ-10 ORAL) Take 400 mg by mouth once daily. No current facility-administered medications for this visit. ALLERGIES: ALLERGIES Allergen Reactions Artificial Sweetene* Other: See Comments headache Avandamet [Rosiglit* Other: See Comments refuses Iodine Anaphylaxis Oxycodone GI Upset, Vomiting Dizziness Promethazine-Codeine Other: See Comments Low BP 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 Hyperlipidemia Impacted cerumen [place] (myocardial infarction) ([facility]) '93, '98, '03, '04 Pneumonia 03/08/2011 PAST SURGICAL HISTORY Procedure Laterality Date ANGIOPLASTY 02/2004 with stents ARTHRP ACETBLR/PROX FEM PROSTC AGRFT/ALGRFT Right CABG (2) VEIN GRAFTS & ARTERIAL GRAFT(S 09/09/1997 CORONARY ARTERY DILATION 03/12/2010 3 stents IMPLANTABLE CARDIOVERTER DEFIBRILLATOR 09/05/2010 duel chamber REMV CATARACT EXTRACAP,INSERT LENS Bilateral FAMILY HISTORY Problem Relation Age of Onset Heart Father Cancer Mother Diabetes Sister Diabetes Other Diabetes Other Diabetes Daughter prediabetic Social History Tobacco Use Smoking status: Never Smokeless tobacco: Never Vaping Use Vaping Use: Never used Substance Use Topics Alcohol use: No Drug use: No Reviewed current medications, allergies, past medical history, surgical history, family history andsocial history today. REVIEW OF SYSTEMS GI: Negative for change in bowel habit : Negative All other reviewed and negative other than HPI. HEALTH MAINTENANCE: Reviewed health maintenance issues today and recommended the following in detail. DEPRESSION ASSESSMENT Never done LDL CHOLESTEROL due on 08/13/2021 DILATED RETINAL EXAM- sees Dr. Cardozo in [place]. HBA1C due on 11/21/2021 VITALS: BP 118/72 Pulse 60 Wt 78.5 kg (173 lb) BMI 25.33 kg/m Last 4 Encounter Wt Readings: Date: Wt: 12/06/2021 78.2 kg (172 lb 8 oz) 09/27/2021 81.2 kg (179 lb) 08/03/2021 81.6 kg (180 lb) 07/20/2021 82.9 kg (182 lb 12.8 oz) PHYSICAL EXAMINATION: General appearance: Well appearing, alert, in no acute distress, well-hydrated, well nourished. Skin: Skin color, texture, turgor normal, no suspicious rashes or lesions Head: Normocephalic, no masses, lesions, tenderness or abnormalities Neck: Supple, no adenopathy; thyroid symmetric, normal size, no bruits Lungs: Lungs clear to auscultation. No wheezing, rhonchi, rales Heart: RRR without murmur, gallop, or rubs. No ectopy Abdomen: Normal abdominal exam, Abdomen soft, non-tender. Bowel sounds normal. No masses, organomegaly Extremities: No deformities, edema, skin discoloration, clubbing or cyanosis. Good capillary refill. Musculoskeletal: No joint swelling, deformity, or tenderness Peripheral pulses: Normal ASSESSMENT/PLAN: 1. GERD without esophagitis - ICD9: 530.81, ICD10: K21.9 (primary diagnosis) - Red flags for re-assessment reviewed with patient in detail. 2. Coronary artery disease due to lipid rich plaque - ICD9: 414.00, 414.3, ICD10: I25.10, I25.83 - call if any changes. 3. ICD (implantable cardioverter-defibrillator) in place - ICD9: V45.02, ICD10: Z95.810 - now seeing [facility] 4. Ischemic cardiomyopathy - ICD9: 414.8, ICD10: I25.5 5. PAD (peripheral artery disease) (HCC) - ICD9: 443.9, ICD10: I73.9 - per vascular 6. Mixed hyperlipidemia - ICD9: 272.2, ICD10: E78.2 - good control - asked him to have endo send records. 7. Type 2 diabetes mellitus with stage 3 chronic kidney disease, without long- term current use of insulin, unspecified whether stage 3a or 3b CKD (HCC) - ICD9: 250.40, 585.3, ICD10: E11.22, N18.30 Controlled. Last a1c was 6.4 he believes. - Continue current medications 8. Stage 3 chronic kidney disease, unspecified whether stage 3a or 3b CKD (HCC) - ICD9: 585.3, ICD10: N18.30 - is doing well. 9. CLL (chronic lymphocytic leukemia) ([facility]) - ICD9: 204.10, ICD10: C91.10 - per Dr. Gabino Kennedy RTMeir in six months and prn. documented in this encounterOur Lady Of Mercy Hospital09-28-2022 History of Present illness Narrative* Eliana Posey LPN - 12/07/2021 11:15 AM EDT Patient here for new bivalent COVID 19 booster Tolerated procedure well. documented in this encounterOur Lady Of Mercy Hospital09-27-2022 History of Present illness Narrative* Stu Lloyd DO - 12/06/2021 10:44 AM EDT Diagnosis: 1) CLL HPI: The patient is an 80 yo male who has a h/o ischemic CM s/p dual chamber ICD 03/22. Was hospitalized for pneumonia 03/08-03/11/11. Was found to have elevated WBC count (labs not available). Repeat CBC via PCP's office 03/24/11: WBC=18.4K with 15K lymphs. Hgb=12.6 gm/dl and platelets 203K. Underwent right total hip replacement on 07/16/2017. Current therapy: 1) Ibrutinib. On full dose he had dizziness but same time he was on higher dose carvedilol. Carvedilol dose was decreased ibrutinib was decreased to 1 capsule daily. Presents for ongoing hematologic management. Interim history: He has been feeling well and offers no complaints today. Getting out and doing yard work and splitting wood again for winter. Bruises easily but no bleeding issues. PMH, medications and allergies as below personally reviewed by me today. Any changes documented in appropriate section. ROS: Constitutional: Normal appetite. No fever or night sweats. Neuro: Denies BECK. No symptoms of neuropathy. HEENT: No recent change in voice, vision or hearing. Resp: Denies cough, wheeze and hemoptysis. CVS: No complaints of chest pain, pressure or palpitation. Not short of breath at rest or with moderate activity. GI: No dysgeusia. No odynophagia or dysphagia. No nausea or vomiting. No diarrhea or change in bowel habits. Endo: No hot flashes. Derm: No rash. No episodes of jaundice or diffuse itch. MS: No MS pain. Heme: See above. Psych: Normal mood. PHYSICAL EXAM: Vitals: Blood pressure 110/69, pulse 60, temperature 36.3 C (97.3 F), height 176 cm (5' 9.29), weight 78.2 kg (172 lb 8 oz), SpO2 100 %. Well-appearing and in no acute distress. EYES: Sclerae are anicteric bilaterally. NECK: Supple. LYMPHATIC: There is no palpable cervical, supraclavicular or axillary adenopathy. RESPIRATORY: Inspiratory breath sounds are of normal intensity in all roberts. No coarse rhonchi or wheezing. CARDIOVASCULAR: Rhythm is regular. ABDOMEN: The abdomen is nondistended. Extremities: Free of edema. SKIN: No jaundice or rash. Small ecchymoses b/l forearms. LABS: Component Latest Ref Rng & Units 12/06/2021 WBC 3.70 - 11.00 k/uL 10.49 RBC 4.20 - 6.00 m/uL 4.96 Hemoglobin 13.0 - 17.0 g/dL 13.7 Hematocrit 39.0 - 51.0 % 42.0 MCV 80.0 - 100.0 fL 84.7 MCH 26.0 - 34.0 pg 27.6 MCHC 30.5 - 36.0 g/dL 32.6 RDW-CV 11.5 - 15.0 % 13.5 Platelet Count 150 - 400 k/uL 158 MPV 9.0 - 12.7 fL 13.3 (H) Neut% % 56.6 Abs Neut (ANC) 1.45 - 7.50 k/uL 5.94 Lymph% % 32.1 Abs Lymph 1.00 - 4.00 k/uL 3.37 Lander% % 9.1 Abs Lander <0.87 k/uL 0.95 (H) Eosin% % 1.1 Abs Eosin <0.46 k/uL 0.12 Baso% % 0.4 Abs Baso <0.11 k/uL 0.04 Immature Gran % % 0.7 IMMATURE GRANS (ABS) <0.10 k/uL 0.07 NRBC /100 WBC 0.0 Absolute nRBC <0.01 k/uL <0.01 DTYPE Auto ASSESSMENT/PLAN: (C91.10) CLL (chronic lymphocytic leukemia) (HCC) (primary encounter diagnosis) -Indication for therapy was progressive shortening of the doubling time. -Continues to tolerate ibrutinib at 140 mg a day very well. No symptomatic side effects currently. -Reviewed lab work in detail. Complete hematologic response. -He requires apixaban for atrial fibrillation and he is also on Plavix.. We previously reviewed therisk and benefit. He is at increased risk of hemorrhage but the dose ibrutinib is lower. Plan: -CBC/CMP in about 3 months. -OV in about 6 months. Portions of this documentation were copied and pasted from previous office visit notes in order to provide a cohesive continuity of the history. The note has been reviewed and edited and updated as necessary. Stu Lloyd DO documented in this encounterOur Lady Of Mercy Hospital09-15-2022 Miscellaneous Notes* Telephone Encounter - Bri Pal RN - 11/24/2021 10:54 AM EDT Pt called and is notified of providers message and instructions. Pt voices understanding. Bri Pal RN * Telephone Encounter - Zachary Kennedy MD - 11/24/2021 10:29 AM EDT The biggest issue is possibly having worsening side effects. I often tell people to split them up to avoid side effects but he can get them together if its absolutely necessary. * Telephone Encounter - Bri Pal RN - 11/24/2021 10:24 AM EDT Pts called in and wanted to make sure it was ok for her to get the flu shot and Bivalent Covid vaccine at the same time. She states he is receiving chemo right now and wanted to make sure that wouldn't cause an issue. I already scheduled an [place] nurse visit with both to be given. I told her if you didn't think her should get both at the same time you would call them, but if they didn'thear from you then you were fine with the appointment. documented in this encounterOur Lady Of Mercy Hospital08-03-2022 Miscellaneous Notes* Telephone Encounter - Stu Lloyd DO - 10/12/2021 2:56 PM EDT The following approved medication requests have been transmitted electronically. Signed Prescriptions Disp Refills ibrutinib (IMBRUVICA) 140 mg capsule 30 capsule 5 Sig: Take 1 capsule (140mg) by mouth once daily with a glass of water. ÁNGEL: No Authorizing Provider: STU LLOYD DO * Telephone Encounter - Almita Rosas LPN - 10/12/2021 10:57 AM EDT Please send Rx. Pharmacy added to [facility]. Med list faxed. Almita Rosas LPN * Telephone Encounter - Mikaela Beverlyler - 10/12/2021 10:37 AM EDT Pts called regarding the pharmacy that he is now using. She assumed it is because the Imbruvica is through [facility]. They have requested a medication list. She can be called with questions. Here is the fax information. Johann Whaley. [phone] documented in this encounterOur Lady Of Mercy Hospital07-19-2022 History of Present illness Narrative* Abigail Moss DO - 09/27/2021 11:30 AM EDT This office note has been dictated. Abigail Moss DO documented in this encounterOur Lady Of Mercy Hospital06-13-2022 History of Present illness Narrative* Maria Victoria Lambert - 08/22/2021 12:39 PM EDT Spoke to spouse, Marisol who confirmed the copays for Imbruvica are unaffordable. Discussed eligibility for the [facility] Patient Assistance Program, and pt meets the current income guidelines. The following documents are required for submission: Application and Prescription Drug Card I explained the next steps to proceed with patient assistance. Application was sent to pt via emailper their request to be signed and completed. Emphasized importance of returning all required documents in a timely matter, and the estimated turnaround for review of the application (7-10 business days) once submitted. S/he expressed understanding of the information we provided today, and receivedour contact information for the pharmacy if s/he had any other questions. Dr. Gabino Pelayo I will be emailing an application to your office which requires your signature. Please sign where indicated and return via fax to [phone]. Maria Victoria Lambert * Maria Victoria Lambert - 08/22/2021 12:39 PM EDT [facility] Refill Assessment Medication(s): Imbruvica Therapy continues to be appropriate for disease, patient response, and medical condition. Verification of therapeutic benefit and effectiveness with current therapy. Adverse events, barriers in adherence, and side effects assessed and addressed. Will proceed with refill with no changes. [facility] Assessment - Hematology/Oncology: Assessment to use: Refill Non-Clinical Assessment: Patient confirmed: Yes Med/dose confirmed: Yes Supplies needed: No Missed doses: No Estimated days supply on hand: 13 Copay amount: 0 Payment confirmed: Yes Address confirmed: Yes Delivery method: FedEx Delivery address: [address], [facility] [address] Delivery date: 08/29/2021 Additional questions, comments, concerns: Vaccination Assessment: Date of influenza vaccination reminder: 11/17/2020 Date of most recent vaccination assessment: 11/17/2020 Maria Victoria Lambert documented in this encounterOur Lady Of Mercy Hospital05-31-2022 Miscellaneous Notes* Telephone Encounter - Beulah Navarrete LPN - 08/09/2021 3:57 PM EDT Spoke with , received leter from [facility] stating his funding will 08/26/21. Reached out to [facility] Special[facility] pharmacy. They have 1 more refill, then they ([facility]) will reach out to [facility] for funding. notified. Beulah Navarrete LPN * Telephone Encounter - Phoebe Karimi - 08/09/2021 3:45 PM EDT Pt calling stated that she got a letter in the mail saying that the funding for the medicationDr. Masci prescribes her is ending. Please call and advise. Phoebe Karimi documented in this encounterOur Lady Of Mercy Hospital05-25-2022 History of Present illness Narrative* Zachary Kennedy MD - 08/03/2021 9:24 AM EDT Patient presents with: Recheck: Follow up, wanting 2nd opinion from Cardiology HPI: Patient presents today for office visit for follow up. Duplex was negative from last visit. They are wanting to get a second opinion. Their last visit with cardiology he had suggested they stop plavix. He had been on plavix since his last stent a number of years ago. His previous time analysis clerk has said he wanted him on plavix for the rest of his life. I discussed that I can prescribe untilhe get established with a new time analysis clerk. No current chest pain or shortness of breath. No palpitations. No dizziness. Edema is improving. Has an appt to see Dr. Moss in September. See last ov, copied and pasted from 07/20/21: In the last year still seeing cardiology, endo, vascular and oncology. [facility] [place] Sees them again soon. Cardio:seeing Cardiology in [place]. DM: saw endo recently. They decreased his amaryl. HEME/ONC:following close with oncology and feeling well. HLD:no myalgias. PAD:he was to see Dr. Moss again last fall. No current claudication but his says he does not walk. Has noted swelling in his right leg. Started after wearing a brace on his knee in March. Not redness or warmth. No hx of dvt's. Swelling is a little better. He did have an xray. He is on eliquis. No bleeding or bruising issues that are new. Does improve some over night. MEDICATIONS: Current Outpatient Medications Medication Sig pantoprazole DR (PROTONIX) 40 mg tablet Take 1 tablet by mouth once daily. ibrutinib (IMBRUVICA) 140 mg capsule Take 1 capsule (140mg) by mouth once daily with a glass of water. Lancets lancets Test blood sugar(s) 1 times daily. Dx: Type 2 DM - Controlled E11.9 Insulin: No blood sugar diagnostic (BLOOD GLUCOSE TEST) test strip Test blood sugar(s) 1 times daily. Dx: Type 2 DM - Controlled E11.9 Insulin: No carvedilol (COREG) 3.125 mg tablet Take 3.125 mg by mouth twice daily. sotalol (BETAPACE) 80 mg tablet Take 1 1/2 tablets by mouth twice daily. apixaban (ELIQUIS) 5 mg tab(s) Take 5 mg by mouth twice daily. rosuvastatin (CRESTOR) 5 mg tablet Take 5 mg by mouth once daily. cyanocobalamin (VITAMIN B-12) 1,000 mcg tab Take 1,000 mcg by mouth once daily. VITAMIN B COMPLEX-100 ORAL Take 1 tablet by mouth once daily. clopidogrel (PLAVIX) 75 mg ORAL tablet Take 75 mg by mouth once daily. Sitagliptin-Metformin (JANUMET) 50-1,000 mg ORAL per tablet Take 0.5 tablets by mouth twice daily. glimepiride (AMARYL) 1 mg ORAL tablet Take 0.5 mg by mouth twice daily with meals. UBIDECARENONE (COQ-10 ORAL) Take 400 mg by mouth once daily. No current facility-administered medications for this visit. ALLERGIES: ALLERGIES Allergen Reactions Artificial Sweetene* Other: See Comments headache Avandamet [Rosiglit* Other: See Comments refuses Iodine Anaphylaxis Oxycodone GI Upset, Vomiting Dizziness Promethazine-Codeine Other: See Comments Low BP 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 Hyperlipidemia Impacted cerumen [place] (myocardial infarction) ([facility]) '93, '98, '03, '04 Pneumonia 03/08/2011 PAST SURGICAL HISTORY Procedure Laterality Date ANGIOPLASTY 02/2004 with stents ARTHRP ACETBLR/PROX FEM PROSTC AGRFT/ALGRFT Right CABG (2) VEIN GRAFTS & ARTERIAL GRAFT(S 09/09/1997 CORONARY ARTERY DILATION 03/12/2010 3 stents IMPLANTABLE CARDIOVERTER DEFIBRILLATOR 09/05/2010 duel chamber REMV CATARACT EXTRACAP,INSERT LENS Bilateral FAMILY HISTORY Problem Relation Age of Onset Heart Father Cancer Mother Diabetes Sister Diabetes Other Diabetes Other Diabetes Daughter prediabetic Social History Tobacco Use Smoking status: Never Smoker Smokeless tobacco: Never Used Substance Use Topics Alcohol use: No Drug use: No Reviewed current medications, allergies, past medical history, surgical history, family history andsocial history today. REVIEW OF SYSTEMS All other reviewed and negative other than HPI. VITALS: BP 126/82 Pulse 68 Resp 16 Wt 81.6 kg (180 lb) BMI 24.41 kg/m Last 4 Encounter Wt Readings: Date: Wt: 08/03/2021 81.6 kg (180 lb) 07/20/2021 82.9 kg (182 lb 12.8 oz) 12/13/2020 80.7 kg (178 lb) 11/12/2020 82.6 kg (182 lb) PHYSICAL EXAMINATION: General appearance: Well appearing, alert, in no acute distress, well-hydrated, well nourished. Skin: Skin color, texture, turgor normal, no suspicious rashes or lesions Head: Normocephalic, no masses, lesions, tenderness or abnormalities Lungs: Lungs clear to auscultation. No wheezing, rhonchi, rales Heart: RRR without murmur, gallop, or rubs. No ectopy Abdomen: Normal abdominal exam, Abdomen soft, non-tender. Bowel sounds normal. No masses, organomegaly Extremities: No deformities, edema, skin discoloration, clubbing or cyanosis. Good capillary refill. Musculoskeletal: No joint swelling, deformity, or tenderness Peripheral pulses: Normal Neuro: Negative. ASSESSMENT/PLAN: 1. Coronary artery disease due to lipid rich plaque - ICD9: 414.00, 414.3, ICD10: I25.10, I25.83 (primary diagnosis) - continue current meds. Call if any issues. - CONSULT TO CARDIOLOGY 2. Chronic atrial fibrillation (HCC) - ICD9: 427.31, ICD10: I48.20 - CONSULT TO CARDIOLOGY 3. Mixed hyperlipidemia - ICD9: 272.2, ICD10: E78.2 - good control - Continue current medication. 4. PAD (peripheral artery disease) (HCC) - ICD9: 443.9, ICD10: I73.9 Zachary Kennedy RTO prn. documented in this encounterOur Lady Of Mercy Hospital05-16-2022 History of Present illness Narrative* Patricia Boone (Communications Scientist) - 07/25/2021 10:40 AM EDT [facility] Assessment Medication(s): Imbruvica Therapy continues to be appropriate for disease, patient response, and medical condition. Verification of therapeutic benefit and effectiveness with current therapy. Adverse events, barriers in adherence, and side effects assessed and addressed. Will proceed with refill with no changes. [facility] Visit Assessment - Hematology/Oncology: Assessment to use: Refill Non-Clinical Assessment: Patient confirmed: Yes Med/dose confirmed: Yes Supplies needed: No Missed doses: No Estimated days supply on hand: 9 Copay amount: 0 Payment confirmed: Yes Address confirmed: Yes Delivery method: FedEx Delivery address: [address], [place] [address] Delivery date: 07/29/2021 Patient has questions: No Vaccination Assessment: Date of influenza vaccination reminder: 11/17/2020 Date of most recent vaccination assessment: 11/17/2020 Patricia Boone ([employer]) documented in this encounterOur [facility]05-11-2022 Miscellaneous Notes* Telephone Encounter - Judy Todd MA - 07/20/2021 1:19 PM EDT Patient notified of results. Judy Todd MA * Telephone Encounter - Judy Todd MA - 07/20/2021 1:19 PM EDT ----- Message from Zachary Kennedy MD sent at 07/20/2021 12:29 PM EDT ----- Duplex is negative. No signs of dvt. documented in this encounterOur Lady Of Mercy Hospital05-11-2022 History of Present illness Narrative* Zachary Kennedy MD - 07/20/2021 10:53 AM EDT Patient presents with: 6 Month Exam HPI: Patient presents today for office visit for follow up. In the last year still seeing cardiology, endo, vascular and oncology. [facility] [place] Sees them again soon. Cardio:seeing Cardiology in [place]. DM: saw endo recently. They decreased his amaryl. HEME/ONC:following close with oncology and feeling well. HLD:no myalgias. PAD:he was to see Dr. Moss again last fall. No current claudication but his says he does not walk. Has noted swelling in his right leg. Started after wearing a brace on his knee in March. Not redness or warmth. No hx of dvt's. Swelling is a little better. He did have an xray. He is on eliquis. No bleeding or bruising issues that are new. Does improve some over night. MEDICATIONS: Current Outpatient Medications Medication Sig pantoprazole DR (PROTONIX) 40 mg tablet Take 1 tablet by mouth once daily. ibrutinib (IMBRUVICA) 140 mg capsule Take 1 capsule (140mg) by mouth once daily with a glass of water. Lancets lancets Test blood sugar(s) 1 times daily. Dx: Type 2 DM - Controlled E11.9 Insulin: No blood sugar diagnostic (BLOOD GLUCOSE TEST) test strip Test blood sugar(s) 1 times daily. Dx: Type 2 DM - Controlled E11.9 Insulin: No carvedilol (COREG) 3.125 mg tablet Take 3.125 mg by mouth twice daily. sotalol (BETAPACE) 80 mg tablet Take 1 1/2 tablets by mouth twice daily. apixaban (ELIQUIS) 5 mg tab(s) Take 5 mg by mouth twice daily. rosuvastatin (CRESTOR) 5 mg tablet Take 5 mg by mouth once daily. cyanocobalamin (VITAMIN B-12) 1,000 mcg tab Take 1,000 mcg by mouth once daily. VITAMIN B COMPLEX-100 ORAL Take 1 tablet by mouth once daily. clopidogrel (PLAVIX) 75 mg ORAL tablet Take 75 mg by mouth once daily. Sitagliptin-Metformin (JANUMET) 50-1,000 mg ORAL per tablet Take 0.5 tablets by mouth twice daily. glimepiride (AMARYL) 1 mg ORAL tablet Take 0.5 mg by mouth twice daily with meals. UBIDECARENONE (COQ-10 ORAL) Take 400 mg by mouth once daily. No current facility-administered medications for this visit. ALLERGIES: ALLERGIES Allergen Reactions Artificial Sweetene* Other: See Comments headache Avandamet [Rosiglit* Other: See Comments refuses Iodine Anaphylaxis Oxycodone GI Upset, Vomiting Dizziness Promethazine-Codeine Other: See Comments Low BP 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 Hyperlipidemia Impacted cerumen [place] (myocardial infarction) ([facility]) , , '03, '04 Pneumonia 03/08/2011 PAST SURGICAL HISTORY Procedure Laterality Date ANGIOPLASTY 02/2004 with stents ARTHRP ACETBLR/PROX FEM PROSTC AGRFT/ALGRFT Right CABG (2) VEIN GRAFTS & ARTERIAL GRAFT(S 09/09/1997 CORONARY ARTERY DILATION 03/12/2010 3 stents IMPLANTABLE CARDIOVERTER DEFIBRILLATOR 09/05/2010 duel chamber REMV CATARACT EXTRACAP,INSERT LENS Bilateral FAMILY HISTORY Problem Relation Age of Onset Heart Father Cancer Mother Diabetes Sister Diabetes Other Diabetes Other Diabetes Daughter prediabetic Social History Tobacco Use Smoking status: Never Smoker Smokeless tobacco: Never Used Substance Use Topics Alcohol use: No Drug use: No Reviewed current medications, allergies, past medical history, surgical history, family history andsocial history today. REVIEW OF SYSTEMS All other reviewed and negative other than HPI. HEALTH MAINTENANCE: Reviewed health maintenance issues today and recommended the following in detail. ADVANCE DIRECTIVE DISCUSSION-does not have a dpoa or living will. DIABETIC FOOT EXAM -in December. By [facility]o DILATED RETINAL EXAM due on 08/17/2021 VITALS: BP 132/86 Pulse 71 Resp 16 Wt 82.9 kg (182 lb 12.8 oz) SpO2 99% BMI 24.79 kg/m Last 4 Encounter Wt Readings: Date: Wt: 07/20/2021 82.9 kg (182 lb 12.8 oz) 12/13/2020 80.7 kg (178 lb) 11/12/2020 82.6 kg (182 lb) 08/24/2020 85.6 kg (188 lb 12.8 oz) PHYSICAL EXAMINATION: General appearance: Well appearing, alert, in no acute distress, well-hydrated, well nourished. Skin: Skin color, texture, turgor normal, no suspicious rashes or lesions Head: Normocephalic, no masses, lesions, tenderness or abnormalities Lungs: Lungs clear to auscultation. No wheezing, rhonchi, rales Heart: RRR without murmur, gallop, or rubs. No ectopy Abdomen: Normal abdominal exam, Abdomen soft, non-tender. Bowel sounds normal. No masses, organomegaly Extremities: No deformities, skin discoloration, clubbing or cyanosis. Good capillary refill. One plus edema of right ankle, compared to left. No redness or warmth, negative jordan's. Musculoskeletal: No joint swelling, deformity, or tenderness Feet:Shoes and socks removed, No deformities, ulcers, calluses, trace DP distal pulses and sensitive to 10 gm monofilament ASSESSMENT/PLAN: 1. PAD (peripheral artery disease) (HCC) - ICD9: 443.9, ICD10: I73.9 (primary diagnosis) - CONSULT TO VASCULAR SURGERY 2. Stage 3 chronic kidney disease, unspecified whether stage 3a or 3b CKD (HCC) - ICD9: 585.3, ICD10: N18.30 - stable. 3. 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 Chronic atrial fibrillation (HCC) - ICD9: 427.31, ICD10: I48.20 - doing well. Continue meds. 5. Type 2 diabetes mellitus with stage 3 chronic kidney disease, without long- term current use of insulin, unspecified whether stage 3a or 3b CKD (HCC) - ICD9: 250.40, 585.3, ICD10: E11.22, N18.30 Controlled. - Per endo. Get records. 6. Mixed hyperlipidemia - ICD9: 272.2, ICD10: E78.2 - good control - Continue current medication. 7. CLL (chronic lymphocytic leukemia) (HCC) - ICD9: 204.10, ICD10: C91.10 - stable. 8. Edema, unspecified type - ICD9: 782.3, ICD10: R60.9 - doubt dvt given his eliquis. Check duplex to be on safe side today. Elevate prn. Increase activity. Red flags for re-assessment reviewed with patient in detail. - US LEG VEIN DVT UNL VAS LAB Zachary Kennedy RTO in six months and prn. documented in this encounterOur Lady Of [facility]05-11-2022 Evaluation note* Diagnosis PAD (peripheral artery disease) (HCC)- Primary Peripheral vascular disease, unspecified Stage 3 chronic kidney disease, unspecified whether stage 3a or 3b CKD (HCC) Iron malabsorption Other specified intestinal malabsorption Chronic atrial fibrillation (HCC) Atrial fibrillation Type 2 diabetes mellitus with stage 3 chronic kidney disease, without long-term current use of insulin, unspecified whether stage 3a or 3b CKD (HCC) Mixed hyperlipidemia CLL (chronic lymphocytic leukemia) (HCC) Chronic lymphoid leukemia, without mention of having achieved remission Edema, unspecified type documented in this encounter [facility] History of Present illness Narrative* Kika Esparza - 06/24/2021 2:17 PM EDT [facility] Assessment Medication(s): imbruvica Therapy continues to be appropriate for disease, patient response, and medical condition. Verification of therapeutic benefit and effectiveness with current therapy. Adverse events, barriers in adherence, and side effects assessed and addressed. Will proceed with refill with no changes. [facility] Visit Assessment - Hematology/Oncology: Assessment to use: Refill Non-Clinical Assessment: Patient confirmed: Yes Med/dose confirmed: Yes Supplies needed: No Missed doses: No Estimated days supply on hand: 10 Copay amount: 0 Payment confirmed: Yes Address confirmed: Yes Delivery method: FedEx Delivery address: [address] [place] [address] Delivery date: 06/30/2021 Patient has questions: No Vaccination Assessment: Date of influenza vaccination reminder: 11/17/2020 Date of most recent vaccination assessment: 11/17/2020 Kika Esparza documented in this encounterOur Lady Of [facility]cy Hospital04-07-2022 Miscellaneous Notes* Telephone Encounter - Beluah Navarrete LPN - 06/16/2021 12:13 PM EDT Pt. Notified of x-ray results, voiced understanding. Beulah Navarrete LPN * Telephone Encounter - Soumya Liu APRN.ERIC - 06/16/2021 11:56 AM EDT Please inform pt. that there are no acute findings on knee xray. Follow up with PCP if knee pain persists. Thank you. Soumya Liu APRN.ERIC documented in this encounterOur Lady Of Mercy Hospital04-07-2022 History of Present illness Narrative* RT Lanre(R) - 06/16/2021 11:00 AM EDT Radiology Service Progress Note PATIENT NAME: Ronnie Lee DATE OF SERVICE: June 16, 2021 TIME: 10:55 AM PATIENT IDENTITY VERIFICATION COMPLETED USING TWO (2) IDENTIFIERS: Name and Date of confirmedby patient verbally. FALL SCREENING: Has the patient had 2 falls in the last year or 1 fall with injury or currently using an Ambulatory Assistive Device (Walker, Cane, Wheelchair, Crutches, etc.)? No PATIENT GENDER DATA: Male PATIENT RELEVANT IMPLANT DATA REVIEWED: Not Applicable RADIOLOGY DEPARTMENT: General X-ray: Exam(s) Completed: Lower Extremity X- Ray(s): Knee, AP / LAT Right and Wt. Bearing PERIPHERAL IV DATA: Not applicable SIGNED BY: RT Lanre(R) June 16, 2021 10:55 AM documented in this encounterOur Lady Of Mercy Hospital04-07-2022 History of Present illness Narrative* Soumya Liu APRN.CNP - 06/16/2021 10:00 AM EDT Chief Complaint Patient presents with: Established Patient HPI: Ronnie Lee is a 80 year old male who presents here today for follow up CLL. Per Dr. Lloyd's previous note: H/o ischemic CM s/p dual chamber ICD 03/22. Was hospitalized for pneumonia 03/08- 03/11/11. Was foundto have elevated WBC count (labs not available). Repeat CBC via PCP's office 03/24/11: WBC=18.4K with 15K lymphs. Hgb=12.6 gm/dl and platelets 203K. Underwent right total hip replacement on 07/16/2017. Current therapy: 1) Ibrutinib. On full dose he had dizziness but same time he was on higher dose carvedilol. Carvedilol dose was decreased ibrutinib was decreased to 1 capsule daily. I fell and my right knee has been bothering me since. Appetite:Good. Energy level:Tired all of the time. Denies fevers or recent illness. Resp:denies cough or sob Cardiac:denies chest pain/palpitations GI:denies abd pain, n/v, moving bowels regularly :denies dysuria/hematuria Extrem:denies pain currently, as above Neuro:denies symptoms of neuropathy Skin:denies rashes/lesions Heme:denies bleeding, easy bruising The ROS is otherwise negative. Past medical history, appointments, medications, allergies reviewed. No changes. EXAM: BP (P) 136/73 Pulse (P) 86 Temp (P) 36.2 C (97.1 F) Wt (P) 85.3 kg (188 lb) BMI (P) 25.50 kg/m APPEARANCE Well appearing, alert, in no acute distress, well-hydrated, well nourished. HEART RRR with normal S1 and S2, no murmurs LUNG clear to auscultation LYMPH NODES No cervical lymphadenopathy, No supraclavicular lymphadenopathy and No axillary lymphadenopathy. ABDOMEN bowel sounds normoactive, soft, non-tender, non-distended, without organomegaly or palpablemasses EXTREMITIES No edema NEURO Awake, alert and oriented x 3, Normal gait and No involuntary motions. SKIN Skin color, texture, turgor normal, no suspicious rashes or lesions LABS: Component Latest Ref Rng & Units 08/13/2020 11/12/2020 06/16/2021 WBC 3.70 - 11.00 k/uL 10.45 10.57 9.85 RBC 4.20 - 6.00 m/uL 4.46 4.88 4.39 Hemoglobin 13.0 - 17.0 g/dL 12.5 (L) 13.6 12.4 (L) Hematocrit 39.0 - 51.0 % 37.9 (L) 41.6 38.4 (L) MCV 80.0 - 100.0 fL 85.0 85.2 87.5 MCH 26.0 - 34.0 pg 28.0 27.9 28.2 MCHC 30.5 - 36.0 g/dL 33.0 32.7 32.3 RDW-CV 11.5 - 15.0 % 13.3 13.4 13.4 Platelet Count 150 - 400 k/uL 137 (L) 142 (L) 126 (L) MPV 9.0 - 12.7 fL 12.0 12.4 12.9 (H) Neut% % 58.8 60.3 61.1 Abs Neut (ANC) 1.45 - 7.50 k/uL 6.15 6.38 6.01 Lymph% % 31.5 30.4 28.7 Abs Lymph 1.00 - 4.00 k/uL 3.29 3.21 2.83 Lander% % 8.3 7.5 8.1 Abs Lander <0.87 k/uL 0.87 (H) 0.79 0.80 Eosin% % 1.1 1.4 1.5 Abs Eosin <0.46 k/uL 0.11 0.15 0.15 Baso% % 0.3 0.4 0.3 Abs Baso <0.11 k/uL 0.03 0.04 0.03 Immature Gran % % 0.3 IMMATURE GRANS (ABS) <0.10 k/uL 0.03 NRBC /100 WBC 0.0 Absolute nRBC <0.01 k/uL <0.01 <0.01 <0.01 DTYPE Auto Nucleated Reds 0 /100 WBC 0.0 0.0 Diff Type Auto Diff Auto Diff Component Latest Ref Rng & Units 08/13/2020 11/12/2020 06/16/2021 Protein, Total 6.3 - 8.0 g/dL 6.5 7.0 6.9 Albumin 3.9 - 4.9 g/dL 3.8 (L) 3.9 3.7 (L) Calcium 8.5 - 10.2 mg/dL 8.7 9.4 8.5 Bilirubin, Total 0.2 - 1.3 mg/dL 0.5 0.5 0.4 Alkaline Phosphatase 38 - 113 U/L 61 65 72 AST 14 - 40 U/L 11 (L) 15 13 (L) Glucose 74 - 99 mg/dL 126 (H) 117 (H) 169 (H) BUN 9 - 24 mg/dL 23 24 28 (H) Creatinine 0.73 - 1.22 mg/dL 1.21 1.30 (H) 1.33 (H) Sodium 136 - 144 mmol/L 138 137 138 Potassium 3.7 - 5.1 mmol/L 4.3 4.2 3.9 Chloride 97 - 105 mmol/L 107 (H) 106 (H) 107 (H) CO2 22 - 30 mmol/L 23 23 21 (L) Anion Gap 9 - 18 mmol/L 8 (L) 8 (L) 10 ALT 10 - 54 U/L 8 (L) 10 9 (L) eGFR- >60 >60 eGFR-All Other Races . 58 53 eGFR >=60 mL/min/1.73m 53 (L) LD: Pending ASSESSMENT/PLAN: 1. CLL (chronic lymphocytic leukemia) (HCC) - ICD9: 204.10, ICD10: C91.[address] Lloyd's previous note 11/12/20: -Indication for therapy was progressive shortening of the doubling time. -Continues to tolerate ibrutinib at 140 mg a day very well. No symptomatic side effects currently. -Reviewed lab work in detail. -He requires apixaban for atrial fibrillation and he is also on Plavix.. We previously reviewed therisk and benefit. He is at increased risk of hemorrhage but the dose ibrutinib is lower. Plan: -Advised [facility]. [facility] -CBC/CMP in about 3 months. -OV in about 6 months. - No concerning findings on exam in regards to CLL. - Tolerating imbruvica/eliquis well. No bleeding issues. - Continue current medications. - Reviewed CBC/CMP with pt. and spouse. - [facility]. - R knee xray today. - CBC/CMP/LD in 3 months. - Follow up in [address] Lloyd with CBC/CMP/LD. - Pt. aware to call office with any questions/concerns. The patient indicates understanding of these issues and agrees with the plan. All documentation from previous visit of 11/12/20-Dr. Lloyd was copied and pasted, documentation has been reviewed and edited as necessary for today's visit. Soumya Liu APRN.HEATING AND BLENDING SUPERVISOR documented in this encounterOur Lady Of Mercy Hospital04-07-2022 Nurse Note* Beulah Navarrete LPN - 06/16/2021 9:52 AM EDT Est. Pt, discuss recent labs. 6 month f/u Beulah Navarrete LPN documented in this encounterOur Lady Of [facility]02-07-2012 History of Past illness Narrative* Problem Noted Date Resolved Date Lymphocytosis (symptomatic) 04/18/201109/09 documented as of this encounter (statuses as of 06/15/2021) [facility] Narrative* Problem Noted Date Resolved Date Lymphocytosis (symptomatic) 04/18/201109/09 documented as of this encounter (statuses as of 06/16/2021) [facility] Narrative* Problem Noted Date Resolved Date Lymphocytosis (symptomatic) 04/18/201109/09 documented as of this encounter (statuses as of 06/17/2021) [facility] Narrative* Problem Noted Date Resolved Date Lymphocytosis (symptomatic) 04/18/201109/09 documented as of this encounter (statuses as of 06/17/2021) [facility] Narrative* Problem Noted Date Resolved Date Lymphocytosis (symptomatic) 04/18/201109/09 documented as of this encounter (statuses as of 06/24/2021) [facility] N[facility]ative* Problem Noted Date Resolved Date Lymphocytosis (symptomatic) 04/18/201109/09 documented as of this encounter (statuses as of 07/20/2021) [facility] N[facility]* Problem Noted Date Resolved Date Lymphocytosis (symptomatic) 04/18/201109/09 documented as of this encounter (statuses as of 07/20/2021) [facility] Narrative* Problem Noted Date Resolved Date Lymphocytosis (symptomatic) 04/18/201109/09 documented as of this encounter (statuses as of 07/21/2021) [address] History of Past illness Narrative* Problem Noted Date Resolved Date Lymphocytosis (symptomatic) 04/18/201109/09 documented as of this encounter (statuses as of 07/25/2021) [address] History of Past illness Narrative* Problem Noted Date Resolved Date Lymphocytosis (symptomatic) 04/18/201109/09 documented as of this encounter (statuses as of 08/03/2021) [address] History of Past illness Narrative* Problem Noted Date Resolved Date Lymphocytosis (symptomatic) 04/18/201109/09 documented as of this encounter (statuses as of 08/09/2021) [address] History of Past illness Narrative* Problem Noted Date Resolved Date Lymphocytosis (symptomatic) 04/18/201109/09 documented as of this encounter (statuses as of 08/22/2021) [address] History of Past illness Narrative* Problem Noted Date Resolved Date Lymphocytosis (symptomatic) 04/18/201109/09 documented as of this encounter (statuses as of 09/16/2021) [address] History of Past illness Narrative* Problem Noted Date Resolved Date Lymphocytosis (symptomatic) 04/18/201109/09 documented as of this encounter (statuses as of 10/12/2021) [place] [address]07-2012 History of Past illness Narrative* Problem Noted Date Resolved Date Lymphocytosis (symptomatic) 04/18/201109/09 documented as of this encounter (statuses as of 11/24/2021) [place] [address]07-2012 History of Past illness Narrative* Problem Noted Date Resolved Date Lymphocytosis (symptomatic) 04/18/201109/09 documented as of this encounter (statuses as of 12/05/2021) [place] [address]07[facility]2012 History of Past illness Narrative* Problem Noted Date Resolved Date Lymphocytosis (symptomatic) 04/18/201109/09 documented as of this encounter (statuses as of 12/06/2021) [address] History of Past illness Narrative* Problem Noted Date Resolved Date Lymphocytosis (symptomatic) 04/18/201109/09 documented as of this encounter (statuses as of 12/07/2021) [address] History of Past illness Narrative* Problem Noted Date Resolved Date Lymphocytosis (symptomatic) 04/18/201109/09 documented as of this encounter (statuses as of 12/12/2021) [address] History of Past illness Narrative* Problem Noted Date Resolved Date Lymphocytosis (symptomatic) 04/18/201109/09 documented as of this encounter (statuses as of 02/07/2022) [address] History of Past illness Narrative* Problem Noted Date Resolved Date Lymphocytosis (symptomatic) 04/18/201109/09 documented as of this encounter (statuses as of 06/03/2022) [place] [address]07[facility]2012 History of Past illness Narrative* Problem Noted Date Resolved Date Lymphocytosis (symptomatic) 04/18/201109/09 documented as of this encounter (statuses as of 06/05/2022) [place] [address]07-2012 History of Past illness Narrative* Problem Noted Date Resolved Date Lymphocytosis (symptomatic) 04/18/201109/09 documented as of this encounter (statuses as of 06/07/2022) [place] [address]07[facility]2012 History of Past illness Narrative* Problem Noted Date Resolved Date Lymphocytosis (symptomatic) 04/18/201109/09 documented as of this encounter (statuses as of 06/08/2022) [place] [address]07-2012 History of Past illness Narrative* Problem Noted Date Resolved Date Lymphocytosis (symptomatic) 04/18/201109/09 documented as of this encounter (statuses as of 06/20/2022) [place] [address]07[facility]2012 History of Past illness Narrative* Problem Noted Date Resolved Date Lymphocytosis (symptomatic) 04/18/201109/09 documented as of this encounter (statuses as of 06/21/2022) [place] [address]07[facility]2012 History of Past illness Narrative* Problem Noted Date Resolved Date Lymphocytosis (symptomatic) 04/18/201109/09 documented as of this encounter (statuses as of 06/26/2022) [address] History of Past illness Narrative* Problem Noted Date Resolved Date Lymphocytosis (symptomatic) 04/18/201109/09 documented as of this encounter (statuses as of 06/29/2022) [address] History of Past illness Narrative* Problem Noted Date Resolved Date Lymphocytosis (symptomatic) 04/18/201109/09 documented as of this encounter (statuses as of 07/05/2022) [address] History of Past illness Narrative* Problem Noted Date Resolved Date Lymphocytosis (symptomatic) 04/18/201109/09 documented as of this encounter (statuses as of 07/07/2022) [address] History of Past illness Narrative* Problem Noted Date Resolved Date Lymphocytosis (symptomatic) 04/18/201109/09 documented as of this encounter (statuses as of 07/19/2022) [address] History of Past illness Narrative* Problem Noted Date Resolved Date Lymphocytosis (symptomatic) 04/18/201109/09 documented as of this encounter (statuses as of 07/20/2022) [address] History of Past illness Narrative* Problem Noted Date Resolved Date Lymphocytosis (symptomatic) 04/18/201109/09 documented as of this encounter (statuses as of 08/08/2022) [address] History of Past illness Narrative* Problem Noted Date Resolved Date Lymphocytosis (symptomatic) 04/18/201109/09 documented as of this encounter (statuses as of 08/10/2022) [address] History of Past illness Narrative* Problem Noted Date Resolved Date Lymphocytosis (symptomatic) 04/18/201109/09 documented as of this encounter (statuses as of 08/15/2022) [address] History of Past illness Narrative* Problem Noted Date Resolved Date Lymphocytosis (symptomatic) 04/18/201109/09 documented as of this encounter (statuses as of 08/16/2022) [facility]* Problem Noted Date Resolved Date Lymphocytosis (symptomatic) 04/18/201109/09 documented as of this encounter (statuses as of 09/05/2022) [facility] N[facility]* Problem Noted Date Resolved Date Lymphocytosis (symptomatic) 04/18/201109/09 documented as of this encounter (statuses as of 09/08/2022) [facility] Narrative* Problem Noted Date Diagnosed Date Resolved Date Lymphocytosis (symptomatic) 04/18/2011 09/25/2016 documented as of this encounter (statuses as of 12/02/2022) [facility]. López [facility] August 11, 2022 12:11pm Note Date/Time August 11, 2022 12:10 pm [facility] Medical Records Department [address] [place] [id number] Instructions for Home/Discharge Instructions 08/11/22 1208 MR#: [id number] Acct: [id number] Name: RONNIE LEE Rep #:[id number] : [id number] 81 From: Lexi López MD PCP: Dr. Zachary Kennedy MD Status:ADM I N Discharge Instructions Diet Discharge Diet: - (DASH diet, 3000 mg sodium restriction, 2 L fluid restriction) Activity Discharge Activity: - (Return to normal activity as tolerated) Follow Up Care Test Results: Test results from this visit will be discussed in further detail at your follow- up appointment, if applicable. Discharge Plan Admission Admit Date/Time: 08/07/22 13:45 Primary Reason for Your Visit: GI bleed Attending Provider: Lexi López Primary Care Provider: Zachary Kennedy Consulting Providers: Nolan Muse ; Lacy Shahid Instructions Patient Instructions: ED Lower GI Bleeding (Stable) Additional Instructions / Restrictions: DISCHARGE INSTRUCTIONS PLEASE READ *Please take this with you to your next doctors appointment* -Would recommend lab work (CBC and bmp) to check your hemoglobin and kidney function in 5 days through your primary care physician's office. Please call their office upon discharge to obtain order for lab work. -You will need to follow-up with Dr. Du with GI in his office upon discharge. Please call his office to schedule your hospital follow-up appointment (ph. [phone]) -Please hold your Plavix for 7 days after discharge but you can resume your Eliquis -Please call your primary care provider's office upon discharge to schedule a hospital follow up within 1 week. -For any concerning signs or symptoms please call 911 or proceed to the nearest emergency department Discharge Orders/Prescriptions Prescriptions: Continued pantoprazole 40 mg tablet,delayed release (DR/EC) 40 mg PO DAILY Imbruvica 140 mg capsule 140 mg PO DAILY Eliquis 5 mg tablet 5 mg PO BID cyanocobalamin (vitamin B-12) 1,000 mcg tablet 1,000 mcg PO DAILY vitamin B complex Tablet 1 tab PO DAILY Janumet XR 50-1,000 mg tablet, ER multiphase 24 hr 0.5 tab PO BID coenzyme Q10 [Co Q-10] 400 mg capsule 400 mg PO DAILY Entresto 24-26 mg tablet 1 tab PO BID Qty: 120 3RF ferrous sulfate 1 tab sotalol 80 mg tablet 120 mg PO BID Qty: 270 3RF Held clopidogrel 75 mg tablet 75 mg PO DAILY Qty: 90 3RF Hold Instructions: Resume on 08/19/22. Referrals / Follow Up: David Du DO [Med Staff - Active Staff] - See Referral Note (You will needto follow-up with Dr. Du with GI in his office upon discharge. Please call his office to schedule your hospital follow-up appointment (ph. [phone])) Zachary Kennedy MD [Primary Care Provider] - Within 1 Week Disposition Disposition (needs filled in before D/C Order can be placed): Home, Self Care 08/11/22 1211<Electronically signed by Lexi López MD>Lexi López MD CC: Dr. Lacy Shahid MD; Dr. Nolan Muse DO; Dr. Zachary Kennedy MD ~ Signed [facility] Work Phone: Evaluation + Plan note Future Appointments Appointment Date:06/16/2021 03:30:00 PM Scheduled Provider:DENISE HERNANDES MD Location:[facility] Appointment Type:[facility] Appointment Date:08/01/2021 01:15:00 PM Scheduled Provider: Location:[facility] Appointment Type:CV OV Appointment Date:08/29/2021 02:30:00 PM Scheduled Provider: Location:[facility] Appointment Type:CV Remote Procedure HM Future Scheduled Tests Laboratory* Basic Metabolic Panel 07/12/20 * Microalbumin Level Urine 03/19/21 * Vitamin D Level 08/17/20 [facility] Evaluation + Plan note Future Appointments Appointment Date:06/16/2021 03:30:00 PM Scheduled Provider:DENISE HERNANDES MD Location:[facility] Appointment Type:[facility] Appointment Date:08/01/2021 01:15:00 PM Scheduled Provider: Location:[facility] Appointment Type:CV OV Appointment Date:08/29/2021 02:30:00 PM Scheduled Provider: Location:[facility] Appointment Type:CV Remote Procedure Future Scheduled Tests Laboratory* Basic Metabolic Panel 07/12/20 * Vitamin D Level 08/17/20 [facility] Evaluation + Plan note Future Appointments Appointment Date:08/29/2021 02:30:00 PM Scheduled Provider: Location:[facility] Appointment Type:CV Remote Procedure Appointment Date:12/15/2021 01:30:00 PM Scheduled Provider:DENISE HERNANDES MD Location:[facility] Appointment Type:[facility] Diagnostic Tests Pending * Vitamin D, 1,25-Dihydroxy 08/16/21 Future Scheduled Tests Laboratory* Thyroid Stimulating Hormone 12/16/21 * A1C Hemoglobin 12/16/21 * Microalbumin Level Urine 12/16/21 * Vitamin D Level 12/16/21 * Vitamin D Level 08/17/20 * Complete Metabolic Panel 12/16/21 [facility] Evaluation + Plan note Future Appointments Appointment Date:12/15/2021 01:30:00 PM Scheduled Provider:DENISE HERNANDES MD Location:[facility] Appointment Type:[facility] Appointment Date:03/09/2022 09:00:00 AM Scheduled Provider: Location:[facility] Appointment Type:CV Remote Procedure HM Future Scheduled Tests Laboratory* Microalbumin Level Urine 12/16/21 [facility] Evaluation + Plan note Future Appointments Appointment Date:06/22/2022 02:15:00 PM Scheduled Provider:DENISE HERNANDES MD Location:[facility] Appointment Type:[facility] Future Scheduled Tests Laboratory* Lipid Profile 03/17/22 * Microalbumin Level Urine 12/16/21 * Complete Metabolic Panel 03/17/22 [facility] Evaluation + Plan note Future Appointments Appointment Date:10/05/2022 01:15:00 PM Scheduled Provider:DENISE HERNANDES MD Location:[facility] Appointment Type:[facility] Future Scheduled Tests Laboratory* Lipid Profile 03/17/22 * Microalbumin Level Urine 12/16/21 * Complete Metabolic Panel 03/17/22 [facility] evaluation note* Diagnosis CLL (chronic lymphocytic leukemia) (HCC)- Primary Chronic lymphoid leukemia, without mention of having achieved remission [facility] CLL (chronic lymphocytic leukemia) (HCC) Chronic lymphoid leukemia, without mention of having achieved remission Acute pain of right knee [facility] Diagnosis CLL (chronic lymphocytic leukemia) (HCC)- Primary Chronic lymphoid leukemia, without mention of having achieved remission Acute pain of right knee [facility] Diagnosis Coronary artery disease due to lipid rich plaque- Primary Chronic atrial fibrillation (HCC) Atrial fibrillation Mixed hyperlipidemia PAD (peripheral artery disease) (HCC) Peripheral vascular disease, unspecified [facility] Diagnosis CLL (chronic lymphocytic leukemia) (HCC)- Primary Chronic lymphoid leukemia, without mention of having achieved remission [facility] Diagnosis PAD (peripheral artery disease) (HCC)- Primary Peripheral vascular disease, unspecified [facility] Diagnosis PAD (peripheral artery disease) (HCC) Peripheral vascular disease, unspecified [facility] Diagnosis CLL (chronic lymphocytic leukemia) (HCC) Chronic lymphoid leukemia, without mention of having achieved remission [facility] Diagnosis CLL (chronic lymphocytic leukemia) (HCC)- Primary Chronic lymphoid leukemia, without mention of having achieved remission [facility] Diagnosis CLL (chronic lymphocytic leukemia) (HCC)- Primary Chronic lymphoid leukemia, without mention of having achieved remission [facility] Diagnosis Need for COVID-19 vaccine- Primary [facility] Diagnosis GERD without esophagitis- Primary Esophageal reflux Coronary artery disease due to lipid rich plaque ICD (implantable cardioverter-defibrillator) in place Automatic implantable cardiac defibrillator in situ Ischemic cardiomyopathy Other specified forms of chronic ischemic heart disease PAD (peripheral artery disease) (HCC) Peripheral vascular disease, unspecified Mixed hyperlipidemia Type 2 diabetes mellitus with stage 3 chronic kidney disease, without long-term current use of insulin, unspecified whether stage 3a or 3b CKD (HCC) Stage 3 chronic kidney disease, unspecified whether stage 3a or 3b CKD (HCC) CLL (chronic lymphocytic leukemia) (HCC) Chronic lymphoid leukemia, without mention of having achieved remission [facility] Diagnosis CLL (chronic lymphocytic leukemia) (HCC)- Primary Chronic lymphoid leukemia, without mention of having achieved remission [facility] Diagnosis CLL (chronic lymphocytic leukemia) (HCC)- Primary Chronic lymphoid leukemia, without mention of having achieved remission Anemia, unspecified type [facility] Diagnosis Iron deficiency anemia, unspecified iron deficiency anemia type- Primary ICD (implantable cardioverter-defibrillator) in place Automatic implantable cardiac defibrillator in situ CLL (chronic lymphocytic leukemia) (HCC) Chronic lymphoid leukemia, without mention of having achieved remission On continuous oral anticoagulation Long-term (current) use of anticoagulants [facility] Diagnosis PAD (peripheral artery disease) (HCC)- Primary Peripheral vascular disease, unspecified [facility] Diagnosis Platelets decreased (HCC)- Primary Thrombocytopenia, unspecified 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 PAD (peripheral artery disease) (HCC) Peripheral vascular disease, unspecified Stage 3 chronic kidney disease, unspecified whether stage 3a or 3b CKD (HCC) Type 2 diabetes mellitus with stage 3 chronic kidney disease, without long-term current use of insulin, unspecified whether stage 3a or 3b CKD (HCC) Chronic atrial fibrillation (HCC) Atrial fibrillation ICD (implantable cardioverter-defibrillator) in place Automatic implantable cardiac defibrillator in situ Mixed hyperlipidemia Status post coronary artery stent placement Postsurgical percutaneous transluminal coronary angioplasty status GERD without esophagitis Esophageal reflux Iron deficiency anemia due to chronic blood loss Iron deficiency anemia secondary to blood loss (chronic) CLL (chronic lymphocytic leukemia) (HCC) Chronic lymphoid leukemia, without mention of having achieved remission [facility] Pre-op evaluation- Primary Preoperative examination, unspecified Chronic atrial fibrillation (HCC) Atrial fibrillation Mixed hyperlipidemia Coronary artery disease due to lipid rich plaque ICD (implantable cardioverter-defibrillator) in place Automatic implantable cardiac defibrillator in situ Ischemic cardiomyopathy Other specified forms of chronic ischemic heart disease Primary hypertension Unspecified essential hypertension GERD without esophagitis Esophageal reflux Type 2 diabetes mellitus with stage 2 chronic kidney disease, without long-term current use of insulin (HCC) Stage 3a chronic kidney disease (HCC) Platelets decreased (HCC) Thrombocytopenia, unspecified Iron deficiency anemia due to chronic blood loss Iron deficiency anemia secondary to blood loss (chronic) CLL (chronic lymphocytic leukemia) (HCC) Chronic lymphoid leukemia, without mention of having achieved remission [facility] Diagnosis Onset Date Resolution Status Preop cardiovascular exam ac kaibab Essential hypertension chron ic History of coronary artery bypass surgery 1997 chronic History of coronary artery stent placement chronic Hyperlipidemia chronic Ischemic cardiomyopathy 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 Presence of implantable card ioverter-defibrillator (ICD) October 04, 2017 chronic 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, NYHA class 2 chronic Ischemic cardiomyopathy 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 Presence of implantable card ioverter-defibrillator (ICD) October 04, 2017 chronic Anemia acute GI bleed acute Type 2 diabetes mellitus without complication [facility] Work Phone: Evaluation note* Diagnosis Chronic superficial gastritis without bleeding- Primary Atrophic gastritis without mention of hemorrhage [facility] Diagnosis Gastrointestinal hemorrhage associated with intestinal diverticulosis- Primary Chronic atrial fibrillation (HCC) Atrial fibrillation Coronary artery disease due to lipid rich plaque Iron malabsorption Other specified intestinal malabsorption [facility] Diagnosis CLL (chronic lymphocytic leukemia) (HCC)- Primary Chronic lymphoid leukemia, without mention of having achieved remission Anemia, unspecified type [facility] Diagnosis 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 Primary hypertension Unspecified essential hypertension Congestive heart failure, unspecified HF chronicity, unspecified heart failure type (HCC) Chronic atrial fibrillation (HCC) Atrial fibrillation Mixed hyperlipidemia ICD (implantable cardioverter-defibrillator) in place Automatic implantable cardiac defibrillator in situ PAD (peripheral artery disease) (HCC) Peripheral vascular disease, unspecified Paroxysmal ventricular tachycardia (HCC) Paroxysmal ventricular tachycardia CLL (chronic lymphocytic leukemia) (HCC) Chronic lymphoid leukemia, without mention of having achieved remission High thyroid stimulating hormone (TSH) level Type 2 diabetes mellitus with stage 2 chronic kidney disease, without long-term current use of insulin ([facility] Diagnosis Weakness- Primary Other malaise and fatigue 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 Transient ischemic attack (TIA), and cerebral infarction without residual deficits Impaired flexibility of lower extremity Impairment of balance Abnormality of gait [facility] Diagnosis 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- Primary Transient ischemic attack (TIA), and cerebral infarction without residual deficits [facility] Diagnosis Weakness- Primary Other malaise and fatigue 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 Transient ischemic attack (TIA), and cerebral infarction without residual deficits Impairment of balance Abnormality of gait Impaired flexibility of lower extremity [facility] Diagnosis Weakness- Primary Other malaise and fatigue 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 Transient ischemic attack (TIA), and cerebral infarction without residual deficits Impairment of balance Abnormality of gait Impaired flexibility of lower extremity [facility] Diagnosis Weakness- Primary Other malaise and fatigue 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 Transient ischemic attack (TIA), and cerebral infarction without residual deficits Impairment of balance Abnormality of gait Impaired flexibility of lower extremity [facility]* Diagnosis PAD (peripheral artery disease) ([facility])- Primary Peripheral vascular disease, unspecified Cerebrovascular accident (CVA), unspecified mechanism ([facility]) [facility] Diagnosis Weakness- Primary Other malaise and fatigue 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 Transient ischemic attack (TIA), and cerebral infarction without residual deficits Impairment of balance Abnormality of gait Impaired flexibility of lower extremity [facility] Diagnosis Weakness- Primary Other malaise and fatigue 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 Transient ischemic attack (TIA), and cerebral infarction without residual deficits Impairment of balance Abnormality of gait Impaired flexibility of lower extremity [facility] Diagnosis Weakness- Primary Other malaise and fatigue 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 Transient ischemic attack (TIA), and cerebral infarction without residual deficits Impairment of balance Abnormality of gait Impaired flexibility of lower extremity [facility] Diagnosis Coronary artery disease due to lipid rich plaque- Primary Type 2 diabetes mellitus with stage 2 chronic kidney disease, without long-term current use of insulin (HCC) (HCC) Dyslipidemia Other and unspecified hyperlipidemia [facility] Diagnosis Weakness- Primary Other malaise and fatigue 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 Transient ischemic attack (TIA), and cerebral infarction without residual deficits Impairment of balance Abnormality of gait Impaired flexibility of lower extremity [facility] Diagnosis Weakness- Primary Other malaise and fatigue 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 Transient ischemic attack (TIA), and cerebral infarction without residual deficits Impairment of balance Abnormality of gait Impaired flexibility of lower extremity [facility] Diagnosis Weakness- Primary Other malaise and fatigue Impairment of balance Abnormality of gait Impaired flexibility of lower extremity [facility] Diagnosis Pre-op evaluation- Primary Preoperative examination, unspecified Chronic atrial fibrillation (HCC) Atrial fibrillation Mixed hyperlipidemia Coronary artery disease due to lipid rich plaque ICD (implantable cardioverter-defibrillator) in place Automatic implantable cardiac defibrillator in situ Ischemic cardiomyopathy Other specified forms of chronic ischemic heart disease Primary hypertension Unspecified essential hypertension GERD without esophagitis Esophageal reflux Type 2 diabetes mellitus with stage 2 chronic kidney disease, without long-term current use of insulin (HCC) (HCC) Stage 3a chronic kidney disease (HCC) Platelets decreased (HCC) Thrombocytopenia, unspecified Iron deficiency anemia due to chronic blood loss Iron deficiency anemia secondary to blood loss (chronic) CLL (chronic lymphocytic leukemia) (HCC) Chronic lymphoid leukemia, without mention of having achieved remission Type 2 diabetes mellitus with chronic kidney disease, without long-term current use of insulin, unspecified CKD stage (HCC) Primary hypertension Unspecified essential hypertension Chronic anticoagulation Long-term (current) use of anticoagulants Dyslipidemia Other and unspecified hyperlipidemia GERD without esophagitis Esophageal reflux High thyroid stimulating hormone (TSH) level [facility] Diagnosis Pre-op evaluation- Primary Preoperative examination, unspecified Chronic atrial fibrillation (HCC) Atrial fibrillation Mixed hyperlipidemia Coronary artery disease due to lipid rich plaque ICD (implantable cardioverter-defibrillator) in place Automatic implantable cardiac defibrillator in situ Ischemic cardiomyopathy Other specified forms of chronic ischemic heart disease Primary hypertension Unspecified essential hypertension GERD without esophagitis Esophageal reflux Type 2 diabetes mellitus with stage 2 chronic kidney disease, without long-term current use of insulin (HCC) (HCC) Stage 3a chronic kidney disease (HCC) Platelets decreased (HCC) Thrombocytopenia, unspecified Iron deficiency anemia due to chronic blood loss Iron deficiency anemia secondary to blood loss (chronic) CLL (chronic lymphocytic leukemia) (HCC) Chronic lymphoid leukemia, without mention of having achieved remission Type 2 diabetes mellitus with stage 2 chronic kidney disease, without long-term current use of insulin (HCC) (HCC)- Primary [facility] Diagnosis Pre-op evaluation- Primary Preoperative examination, unspecified Chronic atrial fibrillation (HCC) Atrial fibrillation Mixed hyperlipidemia Coronary artery disease due to lipid rich plaque ICD (implantable cardioverter-defibrillator) in place Automatic implantable cardiac defibrillator in situ Ischemic cardiomyopathy Other specified forms of chronic ischemic heart disease Primary hypertension Unspecified essential hypertension GERD without esophagitis Esophageal reflux Type 2 diabetes mellitus with stage 2 chronic kidney disease, without long-term current use of insulin (HCC) Stage 3a chronic kidney disease (HCC) Platelets decreased Thrombocytopenia, unspecified Iron deficiency anemia due to chronic blood loss Iron deficiency anemia secondary to blood loss (chronic) CLL (chronic lymphocytic leukemia) (HCC) Chronic lymphoid leukemia, without mention of having achieved remission Chronic atrial fibrillation (HCC)- Primary Atrial fibrillation Coronary artery disease due to lipid rich plaque Mixed hyperlipidemia PAD (peripheral artery disease) Peripheral vascular disease, unspecified ICD (implantable cardioverter-defibrillator) in place Automatic implantable cardiac defibrillator in situ 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 Ischemic cardiomyopathy Other specified forms of chronic ischemic heart disease Primary hypertension Unspecified essential hypertension Congestive heart failure, unspecified HF chronicity, unspecified heart failure type (HCC) Paroxysmal ventricular tachycardia (HCC) Paroxysmal ventricular tachycardia Screening for depression Iron malabsorption (HCC) Other specified intestinal malabsorption GERD without esophagitis Esophageal reflux History of chronic lymphocytic leukemia Osteoarthritis of hip, unspecified laterality, unspecified osteoarthritis type [facility] (current) use of anticoagulants Long-term (current) use of anticoagulants Ataxia Lack of coordination Memory loss Encounter for screening examination for other mental health and behavioral disorders Type 2 diabetes mellitus with stage 3 chronic kidney disease, without long-term current use of insulin, unspecified whether stage 3a or 3b CKD (HCC) Chronic kidney disease, stage 3a (HCC) [facility] Diagnosis Pre-op evaluation- Primary Preoperative examination, unspecified Chronic atrial fibrillation (HCC) Atrial fibrillation Mixed hyperlipidemia Coronary artery disease due to lipid rich plaque ICD (implantable cardioverter-defibrillator) in place Automatic implantable cardiac defibrillator in situ Ischemic cardiomyopathy Other specified forms of chronic ischemic heart disease Primary hypertension Unspecified essential hypertension GERD without esophagitis Esophageal reflux Type 2 diabetes mellitus with stage 2 chronic kidney disease, without long-term current use of insulin (HCC) Stage 3a chronic kidney disease (HCC) Platelets decreased Thrombocytopenia, unspecified Iron deficiency anemia due to chronic blood loss Iron deficiency anemia secondary to blood loss (chronic) CLL (chronic lymphocytic leukemia) (HCC) Chronic lymphoid leukemia, without mention of having achieved remission CLL (chronic lymphocytic leukemia) (HCC)- Primary Chronic lymphoid leukemia, without mention of having achieved remission [facility] Diagnosis Pre-op evaluation- Primary Preoperative examination, unspecified Chronic atrial fibrillation (HCC) Atrial fibrillation Mixed hyperlipidemia Coronary artery disease due to lipid rich plaque ICD (implantable cardioverter-defibrillator) in place Automatic implantable cardiac defibrillator in situ Ischemic cardiomyopathy Other specified forms of chronic ischemic heart disease Primary hypertension Unspecified essential hypertension GERD without esophagitis Esophageal reflux Type 2 diabetes mellitus with stage 2 chronic kidney disease, without long-term current use of insulin (HCC) Stage 3a chronic kidney disease (HCC) Platelets decreased Thrombocytopenia, unspecified Iron deficiency anemia due to chronic blood loss Iron deficiency anemia secondary to blood loss (chronic) CLL (chronic lymphocytic leukemia) (HCC) Chronic lymphoid leukemia, without mention of having achieved remission Abnormal CT scan of head- Primary Nonspecific (abnormal) findings on radiological and other examination of skull and head Memory loss [facility] Diagnosis Pre-op evaluation- Primary Preoperative examination, unspecified Chronic atrial fibrillation (HCC) Atrial fibrillation Mixed hyperlipidemia Coronary artery disease due to lipid rich plaque ICD (implantable cardioverter-defibrillator) in place Automatic implantable cardiac defibrillator in situ Ischemic cardiomyopathy Other specified forms of chronic ischemic heart disease Primary hypertension Unspecified essential hypertension GERD without esophagitis Esophageal reflux Type 2 diabetes mellitus with stage 2 chronic kidney disease, without long-term current use of insulin (HCC) Stage 3a chronic kidney disease (HCC) Platelets decreased Thrombocytopenia, unspecified Iron deficiency anemia due to chronic blood loss Iron deficiency anemia secondary to blood loss (chronic) CLL (chronic lymphocytic leukemia) (HCC) Chronic lymphoid leukemia, without mention of having achieved remission PAD (peripheral artery disease)- Primary Peripheral vascular disease, unspecified [facility] Diagnosis Pre-op evaluation- Primary Preoperative examination, unspecified Chronic atrial fibrillation (HCC) Atrial fibrillation Mixed hyperlipidemia Coronary artery disease due to lipid rich plaque ICD (implantable cardioverter-defibrillator) in place Automatic implantable cardiac defibrillator in situ Ischemic cardiomyopathy Other specified forms of chronic ischemic heart disease Primary hypertension Unspecified essential hypertension GERD without esophagitis Esophageal reflux Type 2 diabetes mellitus with stage 2 chronic kidney disease, without long-term current use of insulin (HCC) Stage 3a chronic kidney disease (HCC) Platelets decreased Thrombocytopenia, unspecified Iron deficiency anemia due to chronic blood loss Iron deficiency anemia secondary to blood loss (chronic) CLL (chronic lymphocytic leukemia) (HCC) Chronic lymphoid leukemia, without mention of having achieved remission Ataxia- Primary Lack of coordination Impairment of balance Abnormality of gait Weakness of both lower extremities At risk for falls Personal history of fall documented in this encounter [facility] note* Diagnosis Pre-op evaluation- Primary Preoperative examination, unspecified Chronic atrial fibrillation (HCC) Atrial fibrillation Mixed hyperlipidemia Coronary artery disease due to lipid rich plaque ICD (implantable cardioverter-defibrillator) in place Automatic implantable cardiac defibrillator in situ Ischemic cardiomyopathy Other specified forms of chronic ischemic heart disease Primary hypertension Unspecified essential hypertension GERD without esophagitis Esophageal reflux Type 2 diabetes mellitus with stage 2 chronic kidney disease, without long-term current use of insulin (HCC) Stage 3a chronic kidney disease (HCC) Platelets decreased Thrombocytopenia, unspecified Iron deficiency anemia due to chronic blood loss Iron deficiency anemia secondary to blood loss (chronic) CLL (chronic lymphocytic leukemia) (HCC) Chronic lymphoid leukemia, without mention of having achieved remission Ataxia- Primary Lack of coordination Impairment of balance Abnormality of gait Weakness of both lower extremities At risk for falls Personal history of fall [facility] Diagnosis Pre-op evaluation- Primary Preoperative examination, unspecified Chronic atrial fibrillation (HCC) Atrial fibrillation Mixed hyperlipidemia Coronary artery disease due to lipid rich plaque ICD (implantable cardioverter-defibrillator) in place Automatic implantable cardiac defibrillator in situ Ischemic cardiomyopathy Other specified forms of chronic ischemic heart disease Primary hypertension Unspecified essential hypertension GERD without esophagitis Esophageal reflux Type 2 diabetes mellitus with stage 2 chronic kidney disease, without long-term current use of insulin (HCC) Stage 3a chronic kidney disease (HCC) Platelets decreased Thrombocytopenia, unspecified Iron deficiency anemia due to chronic blood loss Iron deficiency anemia secondary to blood loss (chronic) CLL (chronic lymphocytic leukemia) (HCC) Chronic lymphoid leukemia, without mention of having achieved remission Type 2 diabetes mellitus with stage 3 chronic kidney disease, without long-term current use of insulin, unspecified whether stage 3a or 3b CKD (HCC)- Primary [facility] noteNo assessment information available[facility] Work Phone: Evaluation note* Diagnosis Pre-op evaluation- Primary Preoperative examination, unspecified Chronic atrial fibrillation (HCC) Atrial fibrillation Mixed hyperlipidemia Coronary artery disease due to lipid rich plaque ICD (implantable cardioverter-defibrillator) in place Automatic implantable cardiac defibrillator in situ Ischemic cardiomyopathy Other specified forms of chronic ischemic heart disease Primary hypertension Unspecified essential hypertension GERD without esophagitis Esophageal reflux Type 2 diabetes mellitus with stage 2 chronic kidney disease, without long-term current use of insulin (HCC) Stage 3a chronic kidney disease (HCC) Platelets decreased Thrombocytopenia, unspecified Iron deficiency anemia due to chronic blood loss Iron deficiency anemia secondary to blood loss (chronic) CLL (chronic lymphocytic leukemia) (HCC) Chronic lymphoid leukemia, without mention of having achieved remission Ataxia- Primary Lack of coordination Impairment of balance Abnormality of gait Weakness of both lower extremities At risk for falls Personal history of fall documented in this encounter [facility] note* Diagnosis Pre-op evaluation- Primary Preoperative examination, unspecified Chronic atrial fibrillation (HCC) Atrial fibrillation Mixed hyperlipidemia Coronary artery disease due to lipid rich plaque ICD (implantable cardioverter-defibrillator) in place Automatic implantable cardiac defibrillator in situ Ischemic cardiomyopathy Other specified forms of chronic ischemic heart disease Primary hypertension Unspecified essential hypertension GERD without esophagitis Esophageal reflux Type 2 diabetes mellitus with stage 2 chronic kidney disease, without long-term current use of insulin (HCC) Stage 3a chronic kidney disease (HCC) Platelets decreased Thrombocytopenia, unspecified Iron deficiency anemia due to chronic blood loss Iron deficiency anemia secondary to blood loss (chronic) CLL (chronic lymphocytic leukemia) (HCC) Chronic lymphoid leukemia, without mention of having achieved remission Ataxia- Primary Lack of coordination Impairment of balance Abnormality of gait Weakness of both lower extremities At risk for falls Personal history of fall [facility] Diagnosis Pre-op evaluation- Primary Preoperative examination, unspecified Chronic atrial fibrillation (HCC) Atrial fibrillation Mixed hyperlipidemia Coronary artery disease due to lipid rich plaque ICD (implantable cardioverter-defibrillator) in place Automatic implantable cardiac defibrillator in situ Ischemic cardiomyopathy Other specified forms of chronic ischemic heart disease Primary hypertension Unspecified essential hypertension GERD without esophagitis Esophageal reflux Type 2 diabetes mellitus with stage 2 chronic kidney disease, without long-term current use of insulin (HCC) Stage 3a chronic kidney disease (HCC) Platelets decreased Thrombocytopenia, unspecified Iron deficiency anemia due to chronic blood loss Iron deficiency anemia secondary to blood loss (chronic) CLL (chronic lymphocytic leukemia) (HCC) Chronic lymphoid leukemia, without mention of having achieved remission Impairment of balance- Primary Abnormality of gait [facility] Diagnosis Pre-op evaluation- Primary Preoperative examination, unspecified Chronic atrial fibrillation (HCC) Atrial fibrillation Mixed hyperlipidemia Coronary artery disease due to lipid rich plaque ICD (implantable cardioverter-defibrillator) in place Automatic implantable cardiac defibrillator in situ Ischemic cardiomyopathy Other specified forms of chronic ischemic heart disease Primary hypertension Unspecified essential hypertension GERD without esophagitis Esophageal reflux Type 2 diabetes mellitus with stage 2 chronic kidney disease, without long-term current use of insulin (HCC) Stage 3a chronic kidney disease (HCC) Platelets decreased Thrombocytopenia, unspecified Iron deficiency anemia due to chronic blood loss Iron deficiency anemia secondary to blood loss (chronic) CLL (chronic lymphocytic leukemia) (HCC) Chronic lymphoid leukemia, without mention of having achieved remission Abnormal CT scan of head Nonspecific (abnormal) findings on radiological and other examination of skull and head Memory loss [facility] Diagnosis Pre-op evaluation- Primary Preoperative examination, unspecified Chronic atrial fibrillation (HCC) Atrial fibrillation Mixed hyperlipidemia Coronary artery disease due to lipid rich plaque ICD (implantable cardioverter-defibrillator) in place Automatic implantable cardiac defibrillator in situ Ischemic cardiomyopathy Other specified forms of chronic ischemic heart disease Primary hypertension Unspecified essential hypertension GERD without esophagitis Esophageal reflux Type 2 diabetes mellitus with stage 2 chronic kidney disease, without long-term current use of insulin (HCC) Stage 3a chronic kidney disease (HCC) Platelets decreased Thrombocytopenia, unspecified Iron deficiency anemia due to chronic blood loss Iron deficiency anemia secondary to blood loss (chronic) CLL (chronic lymphocytic leukemia) (HCC) Chronic lymphoid leukemia, without mention of having achieved remission Primary hypertension- Primary Unspecified essential hypertension Type 2 diabetes mellitus without complication, without long-term current use of insulin (HCC) [facility]* Diagnosis Pre-op evaluation- Primary Preoperative examination, unspecified Chronic atrial fibrillation (HCC) Atrial fibrillation Mixed hyperlipidemia Coronary artery disease due to lipid rich plaque ICD (implantable cardioverter-defibrillator) in place Automatic implantable cardiac defibrillator in situ Ischemic cardiomyopathy Other specified forms of chronic ischemic heart disease Primary hypertension Unspecified essential hypertension GERD without esophagitis Esophageal reflux Type 2 diabetes mellitus with stage 2 chronic kidney disease, without long-term current use of insulin (HCC) Stage 3a chronic kidney disease (HCC) Platelets decreased Thrombocytopenia, unspecified Iron deficiency anemia due to chronic blood loss Iron deficiency anemia secondary to blood loss (chronic) CLL (chronic lymphocytic leukemia) (HCC) Chronic lymphoid leukemia, without mention of having achieved remission Abnormal CT scan of head Nonspecific (abnormal) findings on radiological and other examination of skull and head Memory loss documented in this encounter [facility] note* Diagnosis Pre-op evaluation- Primary Preoperative examination, unspecified Chronic atrial fibrillation (HCC) Atrial fibrillation Mixed hyperlipidemia Coronary artery disease due to lipid rich plaque ICD (implantable cardioverter-defibrillator) in place Automatic implantable cardiac defibrillator in situ Ischemic cardiomyopathy Other specified forms of chronic ischemic heart disease Primary hypertension Unspecified essential hypertension GERD without esophagitis Esophageal reflux Type 2 diabetes mellitus with stage 2 chronic kidney disease, without long-term current use of insulin (HCC) Stage 3a chronic kidney disease (HCC) Platelets decreased Thrombocytopenia, unspecified Iron deficiency anemia due to chronic blood loss Iron deficiency anemia secondary to blood loss (chronic) CLL (chronic lymphocytic leukemia) (HCC) Chronic lymphoid leukemia, without mention of having achieved remission Primary hypertension- Primary Unspecified essential hypertension Type 2 diabetes mellitus with stage 3 chronic kidney disease, without long-term current use of insulin, unspecified whether stage 3a or 3b CKD (HCC) Mixed hyperlipidemia documented in this encounter [facility] note* Diagnosis Onset Date Resolution Status Admit Date Fatigue acute October 23 12:55pm Essential hypertension chronic Au 2024 12:55pm History of coronary artery bypass surgery 1997October 23 12:55pm History of coronary artery stent placement October 23, 202 5 12:55pm Hyperlipidemia chronic October 12:55pm Ischemic cardiomyopathy chronic A ugust 2024 12:55pm Paroxysmal atrial fibrillation chronic October 23 12:55pm Presence of implantable cardioverter-defibrillator (ICD) October 04, 2017 chronic October 23 12:55pm [employer] Work Phone: History and physical note Author Dr. Muse [facility] August 07, 2022 2:02pm Note Date/Time August 07, 2022 2:02p m [facility] Medical Records Department [address] [place] [address] H&P Exam - Hospitalist 08/07/22 1354 MR#: [id number] Acct: [id number] Name: RONNIE LEE Rep #:[id number] : 1940 81 From: Nolan Muse DO PCP: Dr. Zachary Kennedy MD Status:REG E R Location: ED HPI - General General Date of Service: 08/07/22 Chief Complaint: BRBPR HPI Narrative RONNIE LEE, is a 81 M who presents lower GI bleed since Sunday. Has been occurring roughly every few hours since then. Back on the , patient underwent polypectomy on colonoscopy by Dr. Mccann. Had no issues after that procedure. Patient's last bloody bowel movement was prior to his presentation here. Patient was experiencing some shortness of breath which led to him to present here. Patient had hemoglobin of 9. No current active bleeding. Patient has never had a GI bleed before. Patient was sent to Dr. Mccann for evaluation for anemia which no clear etiology is identified at that time. [facility] Medical History Atherosclerosis of coronary artery of [place] heart without angina pectoris CLL (chronic lymphocytic leukemia) Combined systolic and diastolic congestive heart failure, NYHA class 2 Essential hypertension GERD (gastroesophageal reflux disease) History of [place] (myocardial infarction) Hyperlipidemia Ischemic cardiomyopathy Paroxysmal atrial fibrillation Peripheral vascular occlusive disease Type 2 diabetes mellitus without complication Home Medications apixaban 5 mg tablet (Eliquis) 5 mg PO BID 08/29/21 [History Last Taken Unknown] coenzyme Q10 400 mg capsule (Co Q-10) 400 mg PO DAILY 08/29/21 [History Last Taken Unknown] cyanocobalamin (vitamin B-12) 1,000 mcg tablet 1,000 mcg PO DAILY 08/29/21 [History Last Taken Unknown] ibrutinib 140 mg capsule (Imbruvica) 140 mg PO DAILY 08/29/21 [History Last Taken Unknown] pantoprazole 40 mg tablet,delayed release 40 mg PO DAILY 08/29/21 [History Last Taken Unknown] sitagliptin phos 50 mg-metformin ER 1,000 mg tablet,extend rel 24h mp (Janumet XR) 0.5 tab PO BID 08/29/21 [History Last Taken Unknown] vitamin B complex 1 tab PO DAILY 08/29/21 [History Last Taken Unknown] clopidogrel 75 mg tablet 75 mg PO DAILY #90 tabs 12/13/21 [Rx Last Taken Unknown] sacubitril 24 mg-valsartan 26 mg tablet (Entresto) 1 tab PO BID #120 tabs 12/13/21 [Rx Last Taken Unknown] sotalol 80 mg tablet 120 mg PO BID #270 tabs 02/20/22 [Rx Last Taken Unknown] Allergy/AdvReac Type Severity Reaction Status Date / Time iodine Allergy Severe Anaphylaxis Verified 08/07/22 10:47 oxycodone Allergy Intermediate dizziness Verified 08/07/22 10:47 Food Allergies: Uncoded Allergy Mild HEADACHE Verified 08/07/22 10:47 codeine AdvReac Intermediate Low BP Verified 08/07/22 10:47 promethazine AdvReac Intermediate Low BP Verified 08/07/22 10:47 metformin [From Avandamet] AdvReac Unknown Patient Verified 08/07/22 10:47 refuses rosiglitazone AdvReac Unknown Patient Verified 08/07/22 10:47 [From Avandamet] refuses Family History Father Heart disease Mother Cancer Sister Diabetes Surgical History History of bilateral cataract extraction History of coronary artery bypass surgery (1997) History of coronary artery stent placement Presence of implantable cardioverter-defibrillator (ICD) (10/04/17) Social History Smoking Status: Never smoker alcohol intake: never substance use type: does not use ROS ROS Narrative Easy bruising. All review of systems were negative except as mentioned above inthe history of present illness and the other review of systems. Vital Signs Vital Signs Vital Signs: 08/07/22 10:47 08/07/22 12:46 Temperature 36.4 C L Temperature Source Oral Pulse Rate 76 63 Respiratory Rate 16 16 Blood Pressure 106/84 H 110/78 Blood Pressure Mean 91 88 Pulse Ox 95 100 Oxygen Delivery Method Room Air Room Air Weight Weight: 75.6 kg Body Mass Index (BMI) 22.6 Physical Exam Const alert and no apparent distress HEENT normocephalic, head/scalp atraumatic and hearing grossly normal bilaterally Eyes Eyes Narrative: No icterus Neck no lymphadenopathy Resp normal respiratory effort, no retractions, no use of accessory muscles and clearto auscultation bilaterally Cardio regular rate, regular rhythm, S1 normal heart sound and S2 normal heart sound GI normal to inspection, nondistended, normoactive bowel sounds, soft to palpation,non-tender and non-distended GI Narrative: Rectal exam shows no active bleeding nor any external hemorrhoids. Extremity normal to inspection and no clubbing, cyanosis or edema Neuro moves all extremities and no focal motor deficits Sensorium / Orientation: awake and alert Psych affect normal Results Lab / Micro Data Attestation: I reviewed the patient's lab results. Result Diagrams: 08/07/22 10:55 08/07/22 10:55 Labs: Laboratory Results - last 24 hr 08/07/22 10:55: PT 17.0 H, INR 1.4, APTT 30.0 08/07/22 10:55: Sodium 142, Potassium 4.2, Chloride 109 H, Carbon Dioxide 24.0, Anion Gap 9, BUN 23 H, Creatinine 1.29, Estim Creat Clear Calc 46.40, Est GFR (MDRD) Af Amer 68, Est GFR (MDRD) Non-Af 56 L, BUN/Creatinine Ratio 17.8, Glucose 179 H, Calcium 7.7 L, Total Bilirubin 0.70, AST 11 L, ALT 9 L, Alkaline Phosphatase 58, Troponin I High Sens 7, Total Protein 5.8 L, Albumin 2.6 L, Globulin 3.2, Albumin/Globulin Ratio 0.8 L, Lipase 18 08/07/22 10:55: Blood Type A NEGATIVE, Antibody Screen NEGATIVE 08/07/22 10:55: WBC 10.3, RBC 3.18 L, Hgb 9.0 L, Hct 27.4 L, MCV 86.2, MCH 28.3,MCHC 32.8, RDW Std Deviation 42.3, RDW Coeff of [place] 13.4, Plt Count 118 L, MPV 12.7 H, Immature Gran % (Auto) 0.200, Neut % (Auto) 70.4 H, Lymph % (Auto) 23.3,[place] % (Auto) 5.7, Eos % (Auto) 0.3, Baso % (Auto) 0.1, Absolute Neuts (auto) 7.2, Absolute Lymphs (auto) 2.39, Nucleated RBC % 0 Micro: Microbiology 08/07/22 10:51 Stool Stool Occult Blood (HAJA) - Final Occult Blood Positive EKG Initial EKG: Attestation: I personally reviewed and interpreted this EKG as follows: EKG Rhythm Intrepretation: Atrial Paced Assessment & Plan Assessment/Plan (1) GI bleed: PLAN: Currently stable If patient does rebleed, then patient may need a CT angiogram Dr. Du has been notified by the emergency room and as well as myself. Clear liquid diet Start pantoprazole IV. Hold apixaban and clopidogrel (2) Anemia: PLAN: Hemoglobin currently 9. Does not require transfusion We will recheck in 6 hours and if dropping may need to recheck that in short order or if it stable then just recheck in the morning labs. Type and screen (3) Type 2 diabetes mellitus without complication: PLAN: Hold Sitagliptin/metformin Sliding scale insulin PLAN: Plan Chronic conditions * A-fib: Status post pacemaker. Currently atrial paced. Continue with sotalol. Hold apixaban given the GI bleed * CLL: ED spoke with Dr. Lloyd, of oncology, who recommended holding his ibrutinib * CAD: Status post CABG and stents. Last stent was sometime ago but well over a year ago. Hold the clopidogrel. VTE prophylaxis: Chemical prophylaxis contraindicated. SCDs. CODE STATUS: Addressed with the patient. Patient wishes to be full CODE STATUS Charges/Coding Visit Charges Inpatient E&M: 08259 Init Hosp L3 08/07/22 1402 <Electronically signed by Nolan Muse DO> Cosigner Signature (if applicable): CC: Dr. Nolan Muse DO; Dr. Zachary Kennedy MD~ Signed [facility] Work Phone: Hospital course Narrative No data available for this section [facility] Hospital Discharge instructions No data available for this section [facility] Progress note No data available for this section [facility] Reason for referral (narrative)* Diagnostic Procedure Only (Routine) - Closed Specialty Diagnoses / Procedures Referred By Contac t Referred To Contact XR IMAGING Diagnoses CLL (chronic lymphocytic leukemia) (HCC) Acute pain of right knee Procedures XR KNEE LIMITED 2V AP/LAT RIGHT RADIOLOGIC EXAMINATION KNEE 1/2 VIEWS Soumya Liu APRN.[employer]ATING [employer] [address] [place] [address] Xr Imaging Referral ID Status Reason Start Date Expiration Date V isits Requested Visits Authorized [id number] Closed Auto-Generate d Referral 06/16/2021 03/11/2022 1 1 [facility] for referral (narrative)* Diagnostic Procedure Only (Routine) - Closed Specialty Diagnoses / Procedures Referred By Contac t Referred To Contact XR IMAGING Diagnoses CLL (chronic lymphocytic leukemia) (HCC) Acute pain of right knee Procedures XR KNEE LIMITED 2V AP/LAT RIGHT RADIOLOGIC EXAMINATION KNEE 1/2 VIEWS Soumya Liu APRN.[employer] SUPER[employer] [address] [place] [address] Xr Imaging Referral ID Status Reason Start Date Expiration Date V isits Requested Visits Authorized [id number] Closed Auto-Generate d Referral 06/16/2021 03/11/2022 1 1 [facility] for referral (narrative)* Outpatient Procedure (Urgent) - Pending Review Specialty Diagnoses / Procedures Referred By Contac t Referred To Contact [facility] [place] Diagnoses Edema, unspecified type Procedures US LEG VEIN DVT UNL VAS LAB DUP-SCAN XTR VEINS UNILATERAL/LIMITED STUDY Zachary Kennedy MD [address] [place] [address] [facility] [address] [place] [address] Referral ID Status Reason Start Date Expiration Date Visits Requested Visits Authorized [id number] Pending Review Auto-Generat ed Referral 07/20/2021 07/20/2022 1 1 * Consult, Test, Treat (Routine) - Pending Review Specialty Diagnoses / Procedures Referred By Contac t Referred To Contact Vascular Surgery Diagnoses PAD (peripheral artery disease) (HCC) Procedures CONSULT TO VASCULAR SURGERY OFFICE/OUTPATIENT [facility] HIGH MDM 60-74 MINUTES Zachary Kennedy MD [address] [place] [address] Referral ID Status Reason Start Date Expiration Date Visits Requested Visits Authorized [id number] Pending Review PCP Requested Referral 07/20/2021 07/20/2022 1 1 [facility] for referral (narrative)* Outpatient Procedure (Routine) - Pending Review Specialty Diagnoses / Procedures Referred By Contac t Referred To Contact [facility] [place] Diagnoses PAD (peripheral artery disease) ([facility]) Procedures PVR ANK PRESS OMER VAS LAB NON-INVAS PHYSIOLOGIC STD EXTREMITY ART 2 LEVEL Abigail Moss DO [address] [place] [address] [address] Referral ID Status Reason Start Date Expiration Date Visits Requested Visits Authorized [id number] Pending Review Auto-Generat ed Referral 09/16/2021 09/15/2022 1 1 [facility] for referral (narrative)* Outpatient Procedure (Routine) - Pending Review Specialty Diagnoses / Procedures Referred By Contac t Referred To Contact [facility] [place] Diagnoses PAD (peripheral artery disease) (HCC) Procedures PVR LEG OMER VAS LAB NON-INVASIVE PHYSIOLOGIC STUDY EXTREMITY 3 Abigail Becerra DO [address] [place] [address] [facility] [address] [address] Referral ID Status Reason Start Date Expiration Date Visits Requested Visits Authorized [id number] Pending Review Auto-Generat ed Referral 09/27/2021 09/27/2022 1 1 T [facility] for referral (narrative)* Outpatient Procedure (Routine) - Authorized Specialty Diagnoses / Procedures Referred By Contac t Referred To Contact [facility] Diagnoses PAD (peripheral artery disease) (HCC) Procedures PVR LEG OMER VAS LAB NON-INVASIVE PHYSIOLOGIC STUDY EXTREMITY 3 Abigail Becerra DO [address] [place] [address] [facility] [address] [address] Referral ID Status Reason Start Date Expiration Date Visits Requested Visits Authorized [id number] Authorized Auto-Generat ed Referral 06/13/2022 06/13/2023 1 1 [facility] for referral (narrative)* Outpatient Procedure (Routine) - Pending Review Specialty Diagnoses / Procedures Referred By Contac t Referred To Contact [facility] Diagnoses Cerebrovascular accident (CVA), unspecified mechanism (HCC) Procedures US CAROTID ARTERIES OMER VAS LAB DUPLEX SCAN EXTRACRANIAL ART COMPL BI STUDY Abgiail Moss DO [address] [place] [address] [facility] [address] [address] Referral ID Status Reason Start Date Expiration Date Visits Requested Visits Authorized [id number] Pending Review Auto-Generat ed Referral 07/10/2023 07/09/2024 1 1 * Outpatient Procedure (Routine) - Authorized Specialty Diagnoses / Procedures Referred By Contac t Referred To [facility] Diagnoses PAD (peripheral artery disease) (HCC) Procedures PVR LEG OMER VAS LAB NON-INVASIVE PHYSIOLOGIC STUDY EXTREMITY 3 Abiagil Becerra DO [address] [place] [address] [facility] [place] [address] [place] [address] Referral ID Status Reason Start Date Expiration Date Visits Requested Visits Authorized [id number] Authorized Auto-Generat ed Referral 07/10/2023 07/09/2024 1 1 [facility]No reason for referral information available[facility] Work Phone: Reason for visit Narrative* Diagnostic Procedure Only (Routine) - Closed Specialty Diagnoses / Procedures Referred By Contac t Referred To Contact XR IMAGING Diagnoses CLL (chronic lymphocytic leukemia) (HCC) Acute pain of right knee Procedures XR KNEE LIMITED 2V AP/LAT RIGHT RADIOLOGIC EXAMINATION KNEE 1/2 VIEWS Soumya Liu APRN.HEATING AND BLENDING SUPERVISOR [address] [place] [address] Xr Imaging Referral ID Status Reason Start Date Expiration Date V isits Requested Visits Authorized [id number] Closed Auto-Generate d Referral 06/16/2021 03/11/2022 1 1 [facility] Summary Purpose Family History Relationship Condition Age at Onset Recorded Date/T jenny father Cardiac disease Unknown mother Malignant neoplasm Unknown sister Diabetes mellitus Unknown Advance Directives Advance Directive Response Recorded Date/ Time Living Will No August 07, 2022 1 0:59am Power of Enterprise Resource Analyst No August 07, 2022 10:59am Advance Directive Response Recorded Date/ Time Living Will No August 07, 2022 3 :43pm Power of Enterprise Resource Analyst No August 07, 2022 3:43pm Advance Directive Response Recorded Date/ Time Living Will No August 07, 2022 3 :43pm Do you have a Healthcare Power of Enterprise Resource Analyst? 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 Procedures CONSULT TO PHYSICAL THERAPY PHYSICAL THERAPY EVALUATION HIGH COMPLEX 45 MINS Brian Cook PA-C [address] [place] [address] [facility] [place] [address] [place] [address] Referral ID Status Reason Start Date Expiration Date Visits Requested Visits Authorized [id number] Authorized Auto-Generat ed Referral 03/12/2023 03/11/2024 99 99 Specialty Diagnoses / Procedures Referred By Katerin de la vega Referred To Contact Cardiology Diagnoses Chronic atrial fibrillation (HCC) Coronary artery disease due to lipid rich plaque Procedures CONSULT TO CARDIOLOGY Zachary Kennedy MD [address] [place] [address] Referral ID Status Reason Start Date Expiration Date Visits Requested Visits Authorized [id number] Ref Not Required PCP Requested Referral 08/03/2021 08/03/2022 1 1 Chief Complaint and Reason for Visit Chief Complaint 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 gi bleed gi bleed Reason for Visit Preop cardiovascular exam Essential hypertension History of coronary artery bypass surgery History of coronary artery stent placement Hyperlipidemia Ischemic cardiomyopathy Presence of implantable cardioverter-defibrillator (ICD) Combined systolic and diastolic congestive heart failure, NYHA class 2 Ischemic cardiomyopathy Presence of implantable cardioverter-defibrillator (ICD) Anemia GI bleed Type 2 diabetes mellitus without complication Chief Complaint 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 gi bleed gi bleed gi bleed gi bleed gi bleed gi bleed gi bleed Reason for Visit Preop cardiovascular exam Essential hypertension History of coronary artery bypass surgery History of coronary artery stent placement Hyperlipidemia Ischemic cardiomyopathy Presence of implantable cardioverter-defibrillator (ICD) Combined systolic and diastolic congestive heart failure, NYHA class 2 Ischemic cardiomyopathy Presence of implantable cardioverter-defibrillator (ICD) Anemia GI bleed Type 2 diabetes mellitus without complication Chief Complaint Admit Date Pacer Check Remote February 5th, 2025 1 2:18am Pacer Check Remote July 16, 2024 2:28am Chief Complaint Admit Date Pacer Check Remote July 16, 2024 2:28am Pacer Check Remote October 15, 2024 4:3 8am Chief Complaint Admit Date Pacer Check Remote July 16, 2024 2:28am Pacer Check Remote October 15, 2024 4:3 8am 1 Y FU October 23, 2024 12 :55pm Reason for Visit Admit Date Fatigue October 23, 2024 12 :55pm Essential hypertension October 23, 2024 12:55pm History of coronary artery bypass surger y October 23, 2024 12:55pm History of coronary artery stent placeme nt October 23, 2024 12:55pm Hyperlipidemia October 23, 2024 12 :55pm Ischemic cardiomyopathy October 23 12:55pm Paroxysmal atrial fibrillation October 232024 12:55pm Presence of implantable cardioverter-def ibrillator (ICD) October 23, 2024 12:55pm Additional Source Comments (unrecognized sect ion and content) No Status Records FoundNo Status Records FoundNo Status Records FoundNo Status Records FoundNo Status Records FoundNo Status Records Found INFORMATION SOURCE (unrecogn ized section and content) DATE CREATED AUTHOR 09/05/2017 [facility] DATE CREATED AUTHOR AUTHOR'S ORGANIZ ATION 07/19/2022 [facility] DATE CREATED AUTHOR AUTHOR'S ORGANIZ ATION 06/13/2023 [facility] ([place]) DATE CREATED AUTHOR AUTHOR'S ORGANIZ ATION 08/10/2024 [facility] DATE CREATED AUTHOR AUTHOR'S ORGANIZ ATION 09/20/2024 [facility] DATE CREATED AUTHOR AUTHOR'S ORGANIZ ATION 10/09/2024 [facility] Care Team (unrecognized sect ion and content) Contracting Executive Relationship Specialty Start Date End Date Zachary Kennedy MD [address] [facility] [place] [address] PCP - General Family Practice 08/18/19 Naheed Grimm RN Specialty [employer] Revenue [employer] Oncology 08/23/17 Contracting Executive Relationship Specialty Start Date End Date Zachary Kennedy MD [address] [facility] [place] [address] PCP - General Family Practice 08/18/19 Naheed Grimm RN Specialty [employer] Revenue Officer Oncology 08/23/17 Contracting Executive Relationship Specialty Start Date End Date Zachary Kennedy MD [address] [facility] [place] [address] PCP - General Family Practice 08/18/19 Naheed Grimm RN Specialty [employer] Revenue Officer Oncology 08/23/17 Contracting Executive Relationship Specialty Start Date End Date Zachary Kennedy MD [address] [facility] [place] [address] PCP - General Family Practice 08/18/19 Naheed Grimm RN Specialty [employer] Revenue Officer Oncology 08/23/17 Contracting Executive Relationship Specialty Start Date End Date Zachary Kennedy MD [address] [place] [address] PCP - General Family Practice 08/18/19 Naheed Grimm RN Specialty [employer] Revenue Officer Oncology 08/23/17 Contracting Executive Relationship Specialty Start Date End Date Zachary Kennedy MD [address] [place] [address] PCP - General Family Practice 08/18/19 Naheed Grimm RN Specialty [employer] Revenue Officer Oncology 08/23/17 Contracting Executive Relationship Specialty Start Date End Date Zachary Kennedy MD [address] [facility] [place] [address] PCP - General Family Practice 08/18/19 Naheed Grimm RN Specialty [employer] Revenue Officer Oncology 08/23/17 Contracting Executive Relationship Specialty Start Date End Date Zachary Kennedy MD [address] [facility] [place] [address] PCP - General Family Practice 08/18/19 Naheed Grimm RN Specialty [employer] Revenue Officer Oncology 08/23/17 Contracting Executive Relationship Specialty Start Date End Date Zachary Kennedy MD [address] [facility] [place] [address] PCP - General Family Practice 08/18/19 Naheed Grimm RN Specialty [employer] Revenue Officer Oncology 08/23/17 Contracting Executive Relationship Specialty Start Date End Date Zachary Kennedy MD [address] [facility] [place] [address] PCP - General Family Practice 08/18/19 Naheed Grimm RN Specialty [employer] Revenue Officer Oncology 08/23/17 Contracting Executive Relationship Specialty Start Date End Date Zachary Kennedy MD [address] [place] [address] PCP - General Family Practice 08/18/19 Naheed Grimm RN Specialty [employer] Revenue Officer Oncology 08/23/17 Contracting Executive Relationship Specialty Start Date End Date Zachary Kennedy MD [address] [place] [address] PCP - General Family Practice 08/18/19 Naheed Grimm RN Specialty [employer] Revenue Officer Oncology 08/23/17 Contracting Executive Relationship Specialty Start Date End Date Zachary Kennedy MD [address] [place] [address] PCP - General Family Practice 08/18/19 Naheed Grimm RN Specialty [employer] Revenue Officer Oncology 08/23/17 Contracting Executive Relationship Specialty Start Date End Date Zachary Kennedy MD [address] [place] [address] PCP - General Family Medicine 08/18/19 Naheed Grimm RN Specialty [employer] Revenue Officer Oncology 08/23/17 Contracting Executive Relationship Specialty Start Date End Date Zachary Kennedy MD [address] [facility] [place] [address] PCP - General Family Medicine 08/18/19 Naheed Grimm RN Specialty [employer] Revenue Officer Oncology 08/23/17 Contracting Executive Relationship Specialty Start Date End Date Zachary Kennedy MD [address] [place] [address] PCP - General Family Medicine 08/18/19 Naheed Grimm RN Specialty [employer] Revenue Officer Oncology 08/23/17 Contracting Executive Relationship Specialty Start Date End Date Zachary Kennedy MD [address] [place] [address] PCP - General Family Medicine 08/18/19 Naheed Grimm RN Specialty [employer] Revenue Officer Oncology 08/23/17 Contracting Executive Relationship Specialty Start Date End Date Zachary Kennedy MD [address] [place] [address] PCP - General Family Medicine 08/18/19 Naheed Grimm RN Specialty [employer] Revenue Officer Oncology 08/23/17 Dioni, Marcos S [address] [address] Cardiology 06/05/22 Contracting Executive Relationship Specialty Start Date End Date Zachary Kennedy MD [address] [place] [address] PCP - General Family Medicine 08/18/19 Naheed Grimm RN Specialty [employer] Revenue Officer Oncology 08/23/17 Dioni, Seaforth S [address] [address] Cardiology 06/05/22 Contracting Executive Relationship Specialty Start Date End Date Zachary Kennedy MD [address] [place] [address] PCP - General Family Medicine 08/18/19 Naheed Grimm RN Specialty [employer] Revenue Officer Oncology 08/23/17 Dioni, Marcos S [address] [address] Cardiology 06/05/22 Contracting Executive Relationship Specialty Start Date End Date Zachary Kennedy MD [address] [place] [address] PCP - General Family Medicine 08/18/19 Naheed Grimm RN Specialty [employer] Revenue Officer Oncology 08/23/17 Dioni, Marcos S [address] [address] Cardiology 06/05/22 Contracting Executive Relationship Specialty Start Date End Date Zachary Kennedy MD [address] [place] [address] PCP - General Family Medicine 08/18/19 Naheed Grimm RN Specialty [employer] Revenue Officer Oncology 08/23/17 Dioni, Seaforth S [address] [address] Cardiology 06/05/22 Contracting Executive Relationship Specialty Start Date End Date Zachary Kennedy MD [address] [place] [address] PCP - General Family Medicine 08/18/19 Naheed Grimm RN Specialty [employer] Revenue Officer Oncology 08/23/17 Dioni, Seaforth S [address] [address] Cardiology 06/05/22 Contracting Executive Relationship Specialty Start Date End Date aZchary Kennedy MD [address] [place] [address] PCP - General Family Medicine 08/18/19 Naheed Grimm RN Specialty [employer] Revenue Officer Oncology 08/23/17 Dioni, Seaforth S [address] [address] Cardiology 06/05/22 Contracting Executive Relationship Specialty Start Date End Date Zachary Kennedy MD [address] [place] [address] PCP - General Family Medicine 08/18/19 Naheed Grimm RN Specialty [employer] Revenue Officer Oncology 08/23/17 Dioni, Marcos S [address] [place] [address] Cardiology 06/05/22 Contracting Executive Relationship Specialty Start Date End Date Zachary Kennedy MD [address] [place] [address] PCP - General Family Medicine 08/18/19 Naheed Grimm RN Specialty [employer] Revenue Officer Oncology 08/23/17 Dioni, Marcos S [address] [place] [address] Cardiology 06/05/22 Contracting Executive Relationship Specialty Start Date End Date Zachary Kennedy MD [address] [place] [address] PCP - General Family Medicine 08/18/19 Naheed Grimm RN Specialty [employer] Revenue Officer Oncology 08/23/17 Dioni, Seaforth S [address] [address] Cardiology 06/05/22 Team Status: Active Member Role Status Dates Dr. Evert Mercado MD Family Provider Active Dr. Zachary Kennedy MD Primary Care Provider Active Team Status: Inactive Member Role Status Dates Dr. Zachary Kennedy MD Primary Care Provider, Referring Provider Active Daniela Dunn Attending Provider Active Team Status: Active Member Role Status Dates Dr. Zachary Kennedy MD Primary Care Provider Active Dr. Aram Stoll DO Emergency Provider Active Dr. Nolan Muse DO Attending Provider Active Team Status: Active Member Role Status Dates Dr. Zachary Kennedy MD Primary Care Provider Active Dr. Aram Stoll DO Emergency Provider Active Dr. Nolan Muse DO Admit Provider, Attending Provid er Active Contracting Executive Relationship Specialty Start Date End Date Zachary Kenndey MD [address] [place], [place] [address] PCP - General Family Medicine 08/18/19 Naheed Grimm RN Specialty [employer] Revenue Officer Oncology 08/23/17 Dioni, Seaforth S [address] [place] [address] Cardiology 06/05/22 Contracting Executive Relationship Specialty Start Date End Date Zachary Kennedy MD [address] [facility] [place], [place] [address] PCP - General Family Medicine 08/18/19 Naheed Grimm RN Specialty [employer] Revenue Officer Oncology 08/23/17 Dioni, Seaforth S [address] [place], [place] [address] Cardiology 06/05/22 Team Status: Active Member Role Status Dates Dr. Zachary Kennedy MD Primary Care Provider Active Dr. Aram Stoll DO Emergency Provider Active Dr. Nolan Muse DO Admit Provider, Other Provider A ctive Dr. Lacy Shahid MD Attending Provider, Other Prov ider Active Team Status: Active Member Role Status Dates Dr. Zachary Kennedy MD Primary Care Provider Active Dr. Aram Stoll DO Emergency Provider Active Dr. Nolan Muse DO Admit Provider, Other Provider A ctive Dr. Lacy Shahid MD Other Provider Active Dr. David Du DO Attending Provider Active Team Status: Active Member Role Status Dates Dr. Zachary Kennedy MD Primary Care Provider Active Dr. David Du DO Attending Provider Active Team Status: Active Member Role Status Dates Dr. Zachary Kennedy MD Primary Care Provider Active Dr. Aram Stoll DO Emergency Provider Active Dr. Nolan Muse DO Admit Provider, Other Provider A ctive Dr. Lexi López MD Attending Provider, Other Provid er Active Dr. Lacy Shahid MD Other Provider Active Team Status: Active Member Role Status Dates Dr. Zachary Kennedy MD Primary Care Provider Active Dr. Aram Stoll DO Emergency Provider Active Dr. Nolan Muse DO Admit Provider, Other Provider A ctive Dr. Lexi López MD Other Provider Active Dr. Lacy Shahid MD Other Provider Active Dr. David Du DO Attending Provider Active Team Status: Inactive Member Role Status Dates Dr. Zachary Kennedy MD Primary Care Provider Active Dr. Aram Stoll DO Emergency Provider Active Dr. Nolan Muse DO Admit Provider, Other Provider A ctive Dr. Lexi López MD Attending Provider Active Dr. Lacy Shahid MD Other Provider Active Contracting Executive Relationship Specialty Start Date End Date Zachary Kennedy MD [address] [place], [place] [address] PCP - General Family Medicine 08/18/19 Naheed Grimm RN Specialty [employer] Revenue Officer Oncology 08/23/17 Marcos Wheatley S [address] [facility] [address] [place], [place] [address] Cardiology 06/05/22 Contracting Executive Relationship Specialty Start Date End Date Zachary Kennedy MD [address] [place], [place] [address] PCP - General Family Medicine 08/18/19 Naheed Grimm RN Specialty [employer] Revenue Officer Oncology 08/23/17 Marcos Wheatley S [address] [facility] [address] [address] Cardiology 06/05/22 Contracting Executive Relationship Specialty Start Date End Date Zachary Kennedy MD [address] [place], [place] [address] PCP - General Family Medicine 08/18/19 Naheed Grimm RN Specialty [employer] Revenue Officer Oncology 08/23/17 Marcos Wheatley MD [address] [facility] [address] [address] [phone] Cardiology 06/05/22 Contracting Executive Relationship Specialty Start Date End Date Zachary Kennedy MD [address] [place], [place] [address] PCP - General Family Medicine 08/18/19 Naheed Grimm RN Specialty [employer] Revenue Officer Oncology 08/23/17 Marcos Wheatley MD [address] [place] [address] Cardiology 06/05/22 Contracting Executive Relationship Specialty Start Date End Date Zachary Kennedy MD [address] [place] [address] PCP - General Family Medicine 08/18/19 Naheed Grimm RN Specialty [employer] Revenue Officer Oncology 08/23/17 Marcos Wheatley MD [address] [place] [address] Cardiology 06/05/22 Contracting Executive Relationship Specialty Start Date End Date Zachary Kennedy MD [address] [place] [address] PCP - General Family Medicine 08/18/19 Naheed Grimm RN Specialty [employer] Revenue Officer Oncology 08/23/17 Marcos Wheatley MD [address] [place] [address] Cardiology 06/05/22 Contracting Executive Relationship Specialty Start Date End Date Zachary Kennedy MD [address] [place] [address] PCP - General Family Medicine 08/18/19 Naheed Grimm RN Specialty [employer] Revenue Officer Oncology 08/23/17 Marcos Wheatley MD [address] [address] Cardiology 06/05/22 Contracting Executive Relationship Specialty Start Date End Date Zachary Kennedy MD [address] [facility] [place] [address] PCP - General Family Medicine 08/18/19 Naheed Grimm RN Specialty [employer] Revenue Officer Oncology 08/23/17 Marcos Wheatley MD [address] [place] [address], [place] [address] Cardiology 06/05/22 Contracting Executive Relationship Specialty Start Date End Date Zachary Kennedy MD [address] [place] [address] PCP - General Family Medicine 08/18/19 Naheed Grimm RN Specialty [employer] Revenue Officer Oncology 08/23/17 Marcos Wheatley MD [address] [address] Cardiology 06/05/22 Contracting Executive Relationship Specialty Start Date End Date Zachary Kennedy MD [address] [place] [address] PCP - General Family Medicine 08/18/19 Naheed Grimm RN Specialty [employer] Revenue Officer Oncology 08/23/17 Marcos Wheatley MD [address] [place] [address] Cardiology 06/05/22 Contracting Executive Relationship Specialty Start Date End Date Zachary Kennedy MD [address] [place], [place] [address] PCP - General Family Medicine 08/18/19 Naheed Grimm RN Specialty [employer] Revenue Officer Oncology 08/23/17 Marcos Wheatley MD [address] [place] [address] Cardiology 06/05/22 Contracting Executive Relationship Specialty Start Date End Date Zachary Kennedy MD [address] [facility] [place] [address] PCP - General Family Medicine 08/18/19 Naheed Grimm RN Specialty [employer] Revenue Officer Oncology 08/23/17 Marcos Wheatley MD [address] [place] [address] Cardiology 06/05/22 Contracting Executive Relationship Specialty Start Date End Date Zachary Kennedy MD [address] [place] [address] PCP - General Family Medicine 08/18/19 Naheed Grimm RN Specialty [employer] Revenue Officer Oncology 08/23/17 Marcos Wheatley MD [address] [place] [address] Cardiology 06/05/22 Contracting Executive Relationship Specialty Start Date End Date Zachary Kennedy MD [address] [place] [address] PCP - General Family Medicine 08/18/19 Naheed Grimm RN Specialty [employer] Revenue Officer Oncology 08/23/17 Marcos Wheatley MD [address] [facility] [address] [place] [address] Cardiology 06/05/22 Contracting Executive Relationship Specialty Start Date End Date Zachary Kennedy MD [address] [place] [address] PCP - General Family Medicine 08/18/19 Naheed Grimm RN Specialty [employer] Revenue Officer Oncology 08/23/17 Marcos Wheatley MD [address] [place] [address] Cardiology 06/05/22 Contracting Executive Relationship Specialty Start Date End Date Zachary Kennedy MD [address] [place] [address] PCP - General Family Medicine 08/18/19 Naheed Grimm RN Specialty [employer] Revenue Officer Oncology 08/23/17 Marcos Wheatley MD [address] [place] [address] Cardiology 06/05/22 Contracting Executive Relationship Specialty Start Date End Date Zachary Kennedy MD [address] [facility] [place] [address] PCP - General Family Medicine 08/18/19 Naheed Grimm RN Specialty [employer] Revenue Officer Oncology 08/23/17 Marcos Wheatley MD [address] [place] [address] Cardiology 06/05/22 Contracting Executive Relationship Specialty Start Date End Date Zachary Kennedy MD [address] [facility] [place] [address] PCP - General Family Medicine 08/18/19 Naheed Grimm RN Specialty [employer] Revenue Officer Oncology 08/23/17 Marcos Wheatley MD [address] [place] [address] Cardiology 06/05/22 Ya Morel APRN.HEATING AND BLENDING SUPERVISOR [address] [place] [address] [facility] 02/18/24 Isidra Neri APRN.HEATING AND BLENDING SUPERVISOR [address] [place] [address] [facility] 02/18/24 Contracting Executive Relationship Specialty Start Date End Date Zachary Kennedy MD [address] [place] [address] PCP - General Family Medicine 08/18/19 Naheed Grimm RN Specialty [employer] Oncology 08/23/17 Marcos Wheatley MD [address] [address] Cardiology 06/05/22 Ya Morel APRN.HEATING AND BLENDING SUPERVISOR [address] [place] [address] Formerly [facility], [facility] 02/18/24 Isidra Neri APRN.HEATING AND BLENDING SUPERVISOR [address] [place] [address] Formerly [facility], [facility] 02/18/24 Contracting Executive Relationship Specialty Start Date End Date Zachary Kennedy MD [address] [place] [address] PCP - General Family Medicine 08/18/19 Naheed Grimm RN Specialty [employer] Officer Oncology 08/23/17 Marcos Wheatley MD [address] [address] Cardiology 06/05/22 Ya Morel APRN.HEATING AND BLENDING SUPERVISOR [address] [facility] [place] [address] [facility] Isidra Neri APRN.HEATING AND BLENDING SUPERVISOR [address] [facility] [place] [address] [facility] Contracting Executive Relationship Specialty Start Date End Date Zachary Kennedy MD [address] [facility] [place] [address] PCP - General Family Medicine 08/18/19 Naheed Grimm RN Specialty [employer] Revenue Officer Oncology 08/23/17 Marcos Wheatley MD [address] [place] [address] Cardiology 06/05/22 Ya Morel APRN.HEATING AND BLENDING SUPERVISOR [address] [facility] [place] [address] Formerly [facility], [facility] 02/18/24 Isidra Neri APRN.HEATING AND BLENDING SUPERVISOR [address] [facility] [place] [address] Formerly [facility], [facility] 02/18/24 Contracting Executive Relationship Specialty Start Date End Date Zachary Kennedy MD [address] [facility] [place] [address] PCP - General Family Medicine 08/18/19 Naheed Grimm RN Specialty [employer] Revenue Officer Oncology 08/23/17 Marcos Wheatley MD [address] [place] [address] Cardiology 06/05/22 Ya Morel APRN.HEATING AND BLENDING SUPERVISOR [address] [place] [address] Formerly [facility], [facility] 02/18/24 Isidra Neri PUBLIC HEALTH EPIDEMIOLOGIST.HEATING AND BLENDING SUPERVISOR [address] [facility] [place] [address] Formerly [facility], [facility] 02/18/24 Contracting Executive Relationship Specialty Start Date End Date Zachary Kennedy MD [address] [facility] [place] [address] PCP - General Family Medicine 08/18/19 Naheed Grimm RN Specialty [employer] Revenue Officer Oncology 08/23/17 Marcos Wheatley MD [address] [place] [address] Cardiology 06/05/22 Ya Morel PUBLIC HEALTH EPIDEMIOLOGIST.HEATING AND BLENDING SUPERVISOR [address] [place] [address] Formerly [facility], [facility] 02/18/24 Isidra Neri PUBLIC HEALTH EPIDEMIOLOGIST.HEATING AND BLENDING SUPERVISOR [address] [facility] [place] [address] Formerly [facility], [facility] 02/18/24 Contracting Executive Relationship Specialty Start Date End Date Zachary Kennedy MD [address] [facility] [address] PCP - General Family Medicine 08/18/19 Naheed Grimm RN Specialty [employer] Revenue Officer Oncology 08/23/17 Marcos Wheatley MD [address] [place] [address] Cardiology 06/05/22 Ya Morel PUBLIC HEALTH EPIDEMIOLOGIST.HEATING AND BLENDING SUPERVISOR [address] [facility] [place] [address] Formerly [facility], [facility] 02/18/24 Isidra Neri, PUBLIC HEALTH EPIDEMIOLOGIST.HEATING AND BLENDING SUPERVISOR [address] [facility] [place] [address] Formerly [facility], [facility] 02/18/24 Contracting Executive Relationship Specialty Start Date End Date Zachary Kennedy MD [address] [facility] [place] [address] PCP - General Family Medicine 08/18/19 Naheed Grimm RN Specialty [employer] Revenue Officer Oncology 08/23/17 Marcos Wheatley MD [address] [place] [address] Cardiology 06/05/22 Ya Morel PUBLIC HEALTH EPIDEMIOLOGIST.HEATING AND BLENDING SUPERVISOR [address] [facility] [place] [address] Formerly [facility], [facility] 02/18/24 Isidra Neri, PUBLIC HEALTH EPIDEMIOLOGIST.HEATING AND BLENDING SUPERVISOR [address] [facility] [place] [address] Formerly [facility], [facility] 02/18/24 Contracting Executive Relationship Specialty Start Date End Date Zachary Kennedy MD [address] [facility] [place] [address] PCP - General Family Medicine 08/18/19 Naheed Grimm RN Specialty [employer] Revenue Officer Oncology 08/23/17 Marcos Wheatley MD [address] [place] [address], [place] [address] Cardiology 06/05/22 Ya Morel, PUBLIC HEALTH EPIDEMIOLOGIST.HEATING AND BLENDING SUPERVISOR [address] [facility] [place], [place] [address] Formerly [facility], [facility] 02/18/24 Isidra Neri PUBLIC HEALTH EPIDEMIOLOGIST.HEATING AND BLENDING SUPERVISOR [address] [facility] [place], [place] [address] Formerly [facility] 02/18/24 Contracting Executive Relationship Specialty Start Date End Date Zachary Kennedy MD [address] [facility] [place], [place] [address] PCP - General Family Medicine 08/18/19 Naheed Grimm RN Specialty [employer] Revenue Officer Oncology 08/23/17 Marcos Wheatley MD [address], [place] [address] Cardiology 06/05/22 Ya Morel, PUBLIC HEALTH EPIDEMIOLOGIST.HEATING AND BLENDING SUPERVISOR [address] [facility] [place] [address] Formerly [facility], [facility] 02/18/24 Isidra Neri PUBLIC HEALTH EPIDEMIOLOGIST.HEATING AND BLENDING SUPERVISOR [address] [facility] [place], [place] [address] Formerly [facility], [facility] 02/18/24 Team Status: Inactive Member Role Status Dates Dr. Zachary Kennedy MD Primary Care Provider Active Start: April 16, 2024 End: April 16, 2024 Dr. Marcos Wheatley MD Attending Provider Active S tart: April 16, 2024 End: April 16, 2024 Dr. Marcos Wheatley MD Referring Provider Active S tart: April 16, 2024 End: April 16, 2024 Team Status: Inactive Member Role Status Dates Dr. Zachary Kennedy MD Primary Care Provider Active Start: July 16, 2024 End: July 16, 2024 Dr. Marcos Wheatley MD Attending Provider Active S tart: July 16, 2024 End: July 16, 2024 Contracting Executive Relationship Specialty Start Date End Date Zachary Kennedy MD [address] [place] [address] PCP - General Family Medicine 08/18/19 Naheed Grimm RN Specialty [employer] Revenue Officer Oncology 08/23/17 Marcos Wheatley MD [address] [place] [address] Cardiology 06/05/22 Ya Morel APRN.HEATING AND BLENDING SUPERVISOR [address] [place] [address] Bridge Maintainer [facility] 02/18/24 Isidra Neri APRN.HEATING AND BLENDING SUPERVISOR [address] [facility] [place] [address] Bridge Maintainer [facility] 02/18/24 Contracting Executive Relationship Specialty Start Date End Date Zachary Kennedy MD [address] [facility] [place] [address] PCP - General Family Medicine 08/18/19 Naheed Grimm RN Specialty [employer] Revenue Officer Oncology 08/23/17 Marcos Wheatley MD [address] [place] [address] Cardiology 06/05/22 Ya Morel APRN.HEATING AND BLENDING SUPERVISOR [address] [facility] [place] [address] Bridge Maintainer [facility] 02/18/24 Isidra Neri APRN.HEATING AND BLENDING SUPERVISOR [address] [place] [address] Bridge Maintainer [facility] 02/18/24 Contracting Executive Relationship Specialty Start Date End Date Zachary Kennedy MD [address] [place] [address] PCP - General Family Medicine 08/18/19 Naheed Grimm RN Specialty [employer] Revenue Officer Oncology 08/23/17 Marcos Wheatley MD [address] [address] Cardiology 06/05/22 Ya Morel APRN.HEATING AND BLENDING SUPERVISOR [address] [place] [address] Bridge Maintainer [facility] 02/18/24 Isidra Neri APRN.HEATING AND BLENDING SUPERVISOR [address] [place] [address] [facility] Contracting Executive Relationship Specialty Start Date End Date Zachary Kennedy MD [address] [place] [address] PCP - General Family Medicine 08/18/19 Naheed Grimm RN Specialty [employer] Revenue Officer Oncology 08/23/17 Marcos Wheatley MD [address] [address] Cardiology 06/05/22 Ya Morel PUBLIC HEALTH EPIDEMIOLOGIST.HEATING AND BLENDING SUPERVISOR [address] [place] [address] [facility] 02/18/24 Isidra Neri PUBLIC HEALTH EPIDEMIOLOGIST.HEATING AND BLENDING SUPERVISOR [address] [place] [address] [facility] 02/18/24 Team Status: Active Member Role/Relationship Status Dates Dr. Evert Mercado MD Family Provider Active Dr. Zachary Kennedy MD Primary Care Provider Active Team Status: Inactive Member Role/Relationship Status Dates Dr. Zachary Kennedy MD Primary Care Provider Active Start: July 16, 2024 End: July 16, 2024 Dr. Marcos Wheatley MD Attending Provider Active S tart: July 16, 2024 End: July 16, 2024 Dr. Marcos Wheatley MD Referring Provider Active S tart: July 16, 2024 End: July 16, 2024 Team Status: Inactive Member Role/Relationship Status Dates Dr. Zachary Kennedy MD Primary Care Provider Active Start: October 15, 2024 End: October 15, 2024 Dr. Marcos Wheatley MD Attending Provider Active S tart: October 15, 2024 End: October 15, 2024 Team Status: Inactive Member Role/Relationship Status Dates Dr. Zachary Kennedy MD Primary Care Provider Active Start: October 23, 2024 End: October 23, 2024 Dr. Zachary Kennedy MD Referring Provider Active Start: October 23, 2024 End: October 23, 2024 Nathaniel Murillo NP, [employer]ER-[employer] Attending Provider Active S tart: October 23, 2024 End: October 23, 2024 Source Comments (unrecognize d section and content) In the event this informatio n is protected by the Federal Confidentiality of Alcohol and Drug Abuse Patient Records regulations: The Federal rules restrict any use of the information to criminally investigate or prosecute any alcohol or drug abuse patient.[facility]In the event this information is protected by the Federal Confidentiality of Alcohol and Drug Abuse Patient Records regulations: The Federal rules restrict any use of the information to criminally investigate or prosecute any alcohol or drug abuse patient.[facility] HospitalIn the event this information is protected by the Federal Confidentiality of Alcohol and Drug Abuse Patient Records regulations: The Federal rules restrict any use of the information to criminally investigate or prosecute any alcohol or drug abuse patient.[facility] HospitalIn the event this information is protected by the Federal Confidentiality of Alcohol and Drug Abuse Patient Records regulations: The Federal rules restrict any use of the information to criminally investigate or prosecute any alcohol or drug abuse patient.[facility] HospitalIn the event this information is protected by the Federal Confidentiality of Alcohol and Drug Abuse Patient Records regulations: The Federal rules restrict any use of the information to criminally investigate or prosecute any alcohol or drug abuse patient.[facility] HospitalIn the event this information is protected by the Federal Confidentiality of Alcohol and Drug Abuse Patient Records regulations: The Federal rules restrict any use of the information to criminally investigate or prosecute any alcohol or drug abuse patient.[facility] HospitalIn the event this information is protected by the Federal Confidentiality of Alcohol and Drug Abuse Patient Records regulations: The Federal rules restrict any use of the information to criminally investigate or prosecute any alcohol or drug abuse patient.[facility] HospitalIn the event this information is protected by the Federal Confidentiality of Alcohol and Drug Abuse Patient Records regulations: The Federal rules restrict any use of the information to criminally investigate or prosecute any alcohol or drug abuse patient.[facility] HospitalIn the event this information is protected by the Federal Confidentiality of Alcohol and Drug Abuse Patient Records regulations: The Federal rules restrict any use of the information to criminally investigate or prosecute any alcohol or drug abuse patient.[facility] HospitalIn the event this information is protected by the Federal Confidentiality of Alcohol and Drug Abuse Patient Records regulations: The Federal rules restrict any use of the information to criminally investigate or prosecute any alcohol or drug abuse patient.[facility] HospitalIn the event this information is protected by the Federal Confidentiality of Alcohol and Drug Abuse Patient Records regulations: The Federal rules restrict any use of the information to criminally investigate or prosecute any alcohol or drug abuse patient.[facility] HospitalIn the event this information is protected by the Federal Confidentiality of Alcohol and Drug Abuse Patient Records regulations: The Federal rules restrict any use of the information to criminally investigate or prosecute any alcohol or drug abuse patient.[facility] HospitalIn the event this information is protected by the Federal Confidentiality of Alcohol and Drug Abuse Patient Records regulations: The Federal rules restrict any use of the information to criminally investigate or prosecute any alcohol or drug abuse patient.[facility] HospitalIn the event this information is protected by the Federal Confidentiality of Alcohol and Drug Abuse Patient Records regulations: The Federal rules restrict any use of the information to criminally investigate or prosecute any alcohol or drug abuse patient.[facility] HospitalIn the event this information is protected by the Federal Confidentiality of Alcohol and Drug Abuse Patient Records regulations: The Federal rules restrict any use of the information to criminally investigate or prosecute any alcohol or drug abuse patient.[facility] HospitalIn the event this information is protected by the Federal Confidentiality of Alcohol and Drug Abuse Patient Records regulations: The Federal rules restrict any use of the information to criminally investigate or prosecute any alcohol or drug abuse patient.[facility] HospitalIn the event this information is protected by the Federal Confidentiality of Alcohol and Drug Abuse Patient Records regulations: The Federal rules restrict any use of the information to criminally investigate or prosecute any alcohol or drug abuse patient.[facility] HospitalIn the event this information is protected by the Federal Confidentiality of Alcohol and Drug Abuse Patient Records regulations: The Federal rules restrict any use of the information to criminally investigate or prosecute any alcohol or drug abuse patient.[facility] HospitalIn the event this information is protected by the Federal Confidentiality of Alcohol and Drug Abuse Patient Records regulations: The Federal rules restrict any use of the information to criminally investigate or prosecute any alcohol or drug abuse patient.[facility] HospitalIn the event this information is protected by the Federal Confidentiality of Alcohol and Drug Abuse Patient Records regulations: The Federal rules restrict any use of the information to criminally investigate or prosecute any alcohol or drug abuse patient.[facility] HospitalIn the event this information is protected by the Federal Confidentiality of Alcohol and Drug Abuse Patient Records regulations: The Federal rules restrict any use of the information to criminally investigate or prosecute any alcohol or drug abuse patient.[facility] HospitalIn the event this information is protected by the Federal Confidentiality of Alcohol and Drug Abuse Patient Records regulations: The Federal rules restrict any use of the information to criminally investigate or prosecute any alcohol or drug abuse patient.[facility] HospitalIn the event this information is protected by the Federal Confidentiality of Alcohol and Drug Abuse Patient Records regulations: The Federal rules restrict any use of the information to criminally investigate or prosecute any alcohol or drug abuse patient.[facility] HospitalIn the event this information is protected by the Federal Confidentiality of Alcohol and Drug Abuse Patient Records regulations: The Federal rules restrict any use of the information to criminally investigate or prosecute any alcohol or drug abuse patient.[facility] HospitalIn the event this information is protected by the Federal Confidentiality of Alcohol and Drug Abuse Patient Records regulations: The Federal rules restrict any use of the information to criminally investigate or prosecute any alcohol or drug abuse patient.[facility] HospitalIn the event this information is protected by the Federal Confidentiality of Alcohol and Drug Abuse Patient Records regulations: The Federal rules restrict any use of the information to criminally investigate or prosecute any alcohol or drug abuse patient.[facility] HospitalIn the event this information is protected by the Federal Confidentiality of Alcohol and Drug Abuse Patient Records regulations: The Federal rules restrict any use of the information to criminally investigate or prosecute any alcohol or drug abuse patient.[facility] HospitalIn the event this information is protected by the Federal Confidentiality of Alcohol and Drug Abuse Patient Records regulations: The Federal rules restrict any use of the information to criminally investigate or prosecute any alcohol or drug abuse patient.[facility] HospitalIn the event this information is protected by the Federal Confidentiality of Alcohol and Drug Abuse Patient Records regulations: The Federal rules restrict any use of the information to criminally investigate or prosecute any alcohol or drug abuse patient.[facility] HospitalIn the event this information is protected by the Federal Confidentiality of Alcohol and Drug Abuse Patient Records regulations: The Federal rules restrict any use of the information to criminally investigate or prosecute any alcohol or drug abuse patient.[facility] HospitalIn the event this information is protected by the Federal Confidentiality of Alcohol and Drug Abuse Patient Records regulations: The Federal rules restrict any use of the information to criminally investigate or prosecute any alcohol or drug abuse patient.[facility] HospitalIn the event this information is protected by the Federal Confidentiality of Alcohol and Drug Abuse Patient Records regulations: The Federal rules restrict any use of the information to criminally investigate or prosecute any alcohol or drug abuse patient.[facility] HospitalIn the event this information is protected by the Federal Confidentiality of Alcohol and Drug Abuse Patient Records regulations: The Federal rules restrict any use of the information to criminally investigate or prosecute any alcohol or drug abuse patient.[facility] the event this information is protected by the Federal Confidentiality of Alcohol and Drug Abuse Patient Records regulations: The Federal rules restrict any use of the information to criminally investigate or prosecute any alcohol or drug abuse patient.[facility] HospitalIn the event this information is protected by the Federal Confidentiality of Alcohol and Drug Abuse Patient Records regulations: The Federal rules restrict any use of the information to criminally investigate or prosecute any alcohol or drug abuse patient.[facility] HospitalIn the event this information is protected by the Federal Confidentiality of Alcohol and Drug Abuse Patient Records regulations: The Federal rules restrict any use of the information to criminally investigate or prosecute any alcohol or drug abuse patient.[facility]In the event this information is protected by the Federal Confidentiality of Alcohol and Drug Abuse Patient Records regulations: The Federal rules restrict any use of the information to criminally investigate or prosecute any alcohol or drug abuse patient.[facility] HospitalIn the event this information is protected by the Federal Confidentiality of Alcohol and Drug Abuse Patient Records regulations: The Federal rules restrict any use of the information to criminally investigate or prosecute any alcohol or drug abuse patient.[facility] HospitalIn the event this information is protected by the Federal Confidentiality of Alcohol and Drug Abuse Patient Records regulations: The Federal rules restrict any use of the information to criminally investigate or prosecute any alcohol or drug abuse patient.[facility] HospitalIn the event this information is protected by the Federal Confidentiality of Alcohol and Drug Abuse Patient Records regulations: The Federal rules restrict any use of the information to criminally investigate or prosecute any alcohol or drug abuse patient.[facility] HospitalIn the event this information is protected by the Federal Confidentiality of Alcohol and Drug Abuse Patient Records regulations: The Federal rules restrict any use of the information to criminally investigate or prosecute any alcohol or drug abuse patient.[facility] HospitalIn the event this information is protected by the Federal Confidentiality of Alcohol and Drug Abuse Patient Records regulations: The Federal rules restrict any use of the information to criminally investigate or prosecute any alcohol or drug abuse patient.[facility] HospitalIn the event this information is protected by the Federal Confidentiality of Alcohol and Drug Abuse Patient Records regulations: The Federal rules restrict any use of the information to criminally investigate or prosecute any alcohol or drug abuse patient.[facility] HospitalIn the event this information is protected by the Federal Confidentiality of Alcohol and Drug Abuse Patient Records regulations: The Federal rules restrict any use of the information to criminally investigate or prosecute any alcohol or drug abuse patient.[facility] HospitalIn the event this information is protected by the Federal Confidentiality of Alcohol and Drug Abuse Patient Records regulations: The Federal rules restrict any use of the information to criminally investigate or prosecute any alcohol or drug abuse patient.[facility] HospitalIn the event this information is protected by the Federal Confidentiality of Alcohol and Drug Abuse Patient Records regulations: The Federal rules restrict any use of the information to criminally investigate or prosecute any alcohol or drug abuse patient.[facility] HospitalIn the event this information is protected by the Federal Confidentiality of Alcohol and Drug Abuse Patient Records regulations: The Federal rules restrict any use of the information to criminally investigate or prosecute any alcohol or drug abuse patient.[facility] HospitalIn the event this information is protected by the Federal Confidentiality of Alcohol and Drug Abuse Patient Records regulations: The Federal rules restrict any use of the information to criminally investigate or prosecute any alcohol or drug abuse patient.[facility] HospitalIn the event this information is protected by the Federal Confidentiality of Alcohol and Drug Abuse Patient Records regulations: The Federal rules restrict any use of the information to criminally investigate or prosecute any alcohol or drug abuse patient.[facility] HospitalIn the event this information is protected by the Federal Confidentiality of Alcohol and Drug Abuse Patient Records regulations: The Federal rules restrict any use of the information to criminally investigate or prosecute any alcohol or drug abuse patient.[facility] HospitalIn the event this information is protected by the Federal Confidentiality of Alcohol and Drug Abuse Patient Records regulations: The Federal rules restrict any use of the information to criminally investigate or prosecute any alcohol or drug abuse patient.[facility] HospitalIn the event this information is protected by the Federal Confidentiality of Alcohol and Drug Abuse Patient Records regulations: The Federal rules restrict any use of the information to criminally investigate or prosecute any alcohol or drug abuse patient.[facility] HospitalIn the event this information is protected by the Federal Confidentiality of Alcohol and Drug Abuse Patient Records regulations: The Federal rules restrict any use of the information to criminally investigate or prosecute any alcohol or drug abuse patient.[facility] HospitalIn the event this information is protected by the Federal Confidentiality of Alcohol and Drug Abuse Patient Records regulations: The Federal rules restrict any use of the information to criminally investigate or prosecute any alcohol or drug abuse patient.[facility] HospitalIn the event this information is protected by the Federal Confidentiality of Alcohol and Drug Abuse Patient Records regulations: The Federal rules restrict any use of the information to criminally investigate or prosecute any alcohol or drug abuse patient.[facility] HospitalIn the event this information is protected by the Federal Confidentiality of Alcohol and Drug Abuse Patient Records regulations: The Federal rules restrict any use of the information to criminally investigate or prosecute any alcohol or drug abuse patient.[facility] HospitalIn the event this information is protected by the Federal Confidentiality of Alcohol and Drug Abuse Patient Records regulations: The Federal rules restrict any use of the information to criminally investigate or prosecute any alcohol or drug abuse patient.[facility] HospitalIn the event this information is protected by the Federal Confidentiality of Alcohol and Drug Abuse Patient Records regulations: The Federal rules restrict any use of the information to criminally investigate or prosecute any alcohol or drug abuse patient.[facility] HospitalIn the event this information is protected by the Federal Confidentiality of Alcohol and Drug Abuse Patient Records regulations: The Federal rules restrict any use of the information to criminally investigate or prosecute any alcohol or drug abuse patient.[facility] HospitalIn the event this information is protected by the Federal Confidentiality of Alcohol and Drug Abuse Patient Records regulations: The Federal rules restrict any use of the information to criminally investigate or prosecute any alcohol or drug abuse patient.[facility] HospitalIn the event this information is protected by the Federal Confidentiality of Alcohol and Drug Abuse Patient Records regulations: The Federal rules restrict any use of the information to criminally investigate or prosecute any alcohol or drug abuse patient.[facility] HospitalIn the event this information is protected by the Federal Confidentiality of Alcohol and Drug Abuse Patient Records regulations: The Federal rules restrict any use of the information to criminally investigate or prosecute any alcohol or drug abuse patient.[facility] HospitalIn the event this information is protected by the Federal Confidentiality of Alcohol and Drug Abuse Patient Records regulations: The Federal rules restrict any use of the information to criminally investigate or prosecute any alcohol or drug abuse patient.[facility] HospitalIn the event this information is protected by the Federal Confidentiality of Alcohol and Drug Abuse Patient Records regulations: The Federal rules restrict any use of the information to criminally investigate or prosecute any alcohol or drug abuse patient.[facility] HospitalIn the event this information is protected by the Federal Confidentiality of Alcohol and Drug Abuse Patient Records regulations: The Federal rules restrict any use of the information to criminally investigate or prosecute any alcohol or drug abuse patient.[facility] HospitalIn the event this information is protected by the Federal Confidentiality of Alcohol and Drug Abuse Patient Records regulations: The Federal rules restrict any use of the information to criminally investigate or prosecute any alcohol or drug abuse patient.[facility] HospitalIn the event this information is protected by the Federal Confidentiality of Alcohol and Drug Abuse Patient Records regulations: The Federal rules restrict any use of the information to criminally investigate or prosecute any alcohol or drug abuse patient.[facility] HospitalIn the event this information is protected by the Federal Confidentiality of Alcohol and Drug Abuse Patient Records regulations: The Federal rules restrict any use of the information to criminally investigate or prosecute any alcohol or drug abuse patient.[facility] HospitalIn the event this information is protected by the Federal Confidentiality of Alcohol and Drug Abuse Patient Records regulations: The Federal rules restrict any use of the information to criminally investigate or prosecute any alcohol or drug abuse patient.[facility] HospitalIn the event this information is protected by the Federal Confidentiality of Alcohol and Drug Abuse Patient Records regulations: The Federal rules restrict any use of the information to criminally investigate or prosecute any alcohol or drug abuse patient.[facility] HospitalIn the event this information is protected by the Federal Confidentiality of Alcohol and Drug Abuse Patient Records regulations: The Federal rules restrict any use of the information to criminally investigate or prosecute any alcohol or drug abuse patient.[facility] HospitalIn the event this information is protected by the Federal Confidentiality of Alcohol and Drug Abuse Patient Records regulations: The Federal rules restrict any use of the information to criminally investigate or prosecute any alcohol or drug abuse patient.[facility] HospitalIn the event this information is protected by the Federal Confidentiality of Alcohol and Drug Abuse Patient Records regulations: The Federal rules restrict any use of the information to criminally investigate or prosecute any alcohol or drug abuse patient.[facility] HospitalIn the event this information is protected by the Federal Confidentiality of Alcohol and Drug Abuse Patient Records regulations: The Federal rules restrict any use of the information to criminally investigate or prosecute any alcohol or drug abuse patient.[facility] HospitalIn the event this information is protected by the Federal Confidentiality of Alcohol and Drug Abuse Patient Records regulations: The Federal rules restrict any use of the information to criminally investigate or prosecute any alcohol or drug abuse patient.[facility] HospitalIn the event this information is protected by the Federal Confidentiality of Alcohol and Drug Abuse Patient Records regulations: The Federal rules restrict any use of the information to criminally investigate or prosecute any alcohol or drug abuse patient.[facility] HospitalIn the event this information is protected by the Federal Confidentiality of Alcohol and Drug Abuse Patient Records regulations: The Federal rules restrict any use of the information to criminally investigate or prosecute any alcohol or drug abuse patient.[facility] HospitalIn the event this information is protected by the Federal Confidentiality of Alcohol and Drug Abuse Patient Records regulations: The Federal rules restrict any use of the information to criminally investigate or prosecute any alcohol or drug abuse patient.[facility] HospitalIn the event this information is protected by the Federal Confidentiality of Alcohol and Drug Abuse Patient Records regulations: The Federal rules restrict any use of the information to criminally investigate or prosecute any alcohol or drug abuse patient.[facility] HospitalIn the event this information is protected by the Federal Confidentiality of Alcohol and Drug Abuse Patient Records regulations: The Federal rules restrict any use of the information to criminally investigate or prosecute any alcohol or drug abuse patient.[facility] Reason for Visit (unrecogniz ed section and content) Reason Comments Physical Therapy Specialty Diagnoses / Procedures Referred By Contac t Referred To Contact [facility] Diagnoses Ataxia Procedures CONSULT TO PHYSICAL THERAPY PHYSICAL THERAPY EVALUATION HIGH COMPLEX 45 MINS Zachary Kennedy MD [address] [place] [address] Phone: tel: fax: [facility] [address] [place] [address] Referral ID Status Reason Start Date Expiration Date Visits Requested Visits Authorized [id number] Authorized Auto-Generat ed Referral 03/12/2024 03/11/2025 99 99 Reason Comments PT Eval Reason Comments Established Patient Specialty Diagnoses / Procedures Referred By Contac t Referred To Contact Hematology Diagnoses History of chronic lymphocytic leukemia Procedures CONSULT TO HEMATOLOGY OFFICE/OUTPATIENT NEW HIGH MDM 60 MINUTES Zachary Kennedy MD [address] [place] [address] Phone: tel: fax: Referral ID Status Reason Start Date Expiration Date V isits Requested Visits Authorized [id number] Closed PCP Requested Referral 06/17/2024 06/17/2025 1 1 Reason Comments Physical Therapy PT Discharge Specialty Diagnoses / Procedures Referred By Contac t Referred To Contact [facility] Diagnoses 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 Procedures CONSULT TO PHYSICAL THERAPY PHYSICAL THERAPY EVALUATION HIGH COMPLEX 45 MINS Brian Cook PA-C [address] [place] [address] [facility] [address] [place] [address] Referral ID Status Reason Start Date Expiration Date Visits Requested Visits Authorized [id number] Authorized Auto-Generat ed Referral 03/12/2023 03/11/2024 99 99 Reason Comments PT Progress Note Reason Comments Established Patient Specialty Diagnoses / Procedures Referred By Contac t Referred To Contact Vascular Surgery Diagnoses PAD (peripheral artery disease) (HCC) Procedures CONSULT TO VASCULAR SURGERY OFFICE/OUTPATIENT NEW [facility] MDM 60-74 MINUTES Zachary Kennedy MD [address] [place] [address] Referral ID Status Reason Start Date Expiration Date Visits Requested Visits Authorized [id number] Pending Review PCP Requested Referral 07/20/2021 07/20/2022 1 1 Reason Comments Results Reason Onset Date Comments SPP Oral Oncology/hematology - Medication Refill 06/24/2021 imbruvica 140mg Reason Comments 6 Month Exam Reason Onset Date Comments SPP Oral Oncology/hematology - Medication Refill 07/25/2021 Imbruvica Reason Comments Recheck Follow up, wanting 2 nd opinion from Cardiology Reason Comments Medication Problem Reason Onset Date Comments SPP Oral Oncology/hematology - Medication Refill 08/22/2021 Imbruvica SPP Oral Oncology/hematology - Patient Assistanc e 08/22/2021 JJPAF Reason Comments Patient Update Reason Comments Vaccinations Reason Comments Imm/Inj COVID Booster Reason Comments 6 Month Exam Reason Comments Results Low iron Reason Comments Consult EGD/ Colonoscopy Reason Onset Date Comments Refill Request 06/20/2022 Reason Comments Patient Question Reason Comments Medication Question Reason Comments Consult Reason Comments Follow Up Review EGD and colon oscopy pathology results. Reason Comments Hospital Follow Up Reason Comments [employer] - Other Hospital Discha rge Reason Comments Appointment Rescheduled Reason Comments Electronic Communication Reason Comments Follow Up Stroke in Dec 2022 d idn't finish therapy. Had told them he would do exercise at home and didn't. Fall X 2 while out gettin g sticks out of driveway. Does not use any assistive devices. Reason Comments Established Patient Reason Comments Follow Up Reason Comments 6 Month Exam Reason Comments Appointment Reason Comments Results Reason Comments Recheck 1 month follow up- a dded Jardiance Reason Comments New Patient Reason Comments Consult Memory Specialty Diagnoses / Procedures Referred By Contac t Referred To Contact Neurology Diagnoses Abnormal CT scan of head Memory loss Procedures CONSULT TO NEUROLOGY OFFICE/OUTPATIENT NEW HIGH MDM 60 MINUTES Zachary Kennedy MD [address] [place] [address] Phone: tel: fax: Referral ID Status Reason Start Date Expiration Date V isits Requested Visits Authorized [id number] Closed PCP Requested Referral 07/07/2024 07/07/2025 1 1 Reason Comments Recheck 1 month follow up Reason Comments Radiology CT Specialty Diagnoses / Procedures Referred By Contac t Referred To Contact CT IMAGING Diagnoses Abnormal CT scan of head Memory loss Procedures CT BRAIN WO IVC CT HEAD/BRAIN W/O CONTRAST MATERIAL Jaja Gaona MD [address] [place] [address] Phone: tel: fax: [place] [id number] Referral ID Status Reason Start Date Expiration Date V isits Requested Visits Authorized [id number] Closed Auto-Generate d Referral 09/15/2024 03/11/2025 1 1 Reason Onset Date Comments Results 07/28/2024 Reason Comments Results, Lab Care Team (unrecognized sect ion and content) Care Team Personnel Name: Dwaine Wade PT Position: P3 Scheduling - Sort Operations Supervisor Advanced Member Role: Other Name: TOM RAO MD Position: P4 Physician - Cardiology Med Service: Active Provider Member Role: Internal Controls Analyst Address: Address: [address] [facility] [address] [facility] [place] [address]- Name: ZACHARY KENNEDY MD Member Role: Primary Care Physician Address: Address: [facility] [address] [place] [address]- Care Team Related Persons Name: MARISOL LEE Address: Home [address] [place], [place] [id number] [place] Goals (unrecognized section and content) Goals may be documented in a n alternate section FOR RECORDS PERTAINING TO PATIENTS WHO ARE OR HAVE BEEN ENROLLED IN A CHEMICAL DEPENDENCY/SUBSTANCEABUSE PROGRAM, SOME INFORMATION MAY BE OMITTED. This clinical summary was aggregated from multiple sources. Caution should be exercised in using it in the provision of clinical care. This summary normalizes information from multiple sources, and as a consequence, information in this document may materially change the coding, format and clinical context of patient data. In addition, data may be omitted in some cases. CLINICAL DECISIONS SHOULD BE BASED ON THE PRIMARY CLINICAL RECORDS. [facility] [employer] [facility]. provides no warranty or guarantee of the accuracy or completeness of information in this document.
[2024-10-23 21:50] LABS: Differential Comment SCANNED
== END | disposition home or self-care (01) ==
LOC: LAB 13:52
PROVIDERS: PCP Family Medicine; Referring Provider Nurse Practitioner Family; Visit Provider Nurse Practitioner Family
DX: I25.5 Ischemic cardiomyopathy (principal); R53.83 Other fatigue; Z95.1 Presence of aortocoronary bypass graft; Z95.5 Presence of coronary angioplasty implant and graft; Z95.810 Presence of automatic (implantable) cardiac defibrillator
CPT/HCPCS: 36415; 80048; 83735; 84439; 84443; 85025